=== PATIENT | male | born 1935 | race Caucasian/White ===

== ENCOUNTER 2018-01-19 00:23 | Inpatient (IN) | payer OTHER ==
--- OUTSIDE RECORDS SUMMARY | 2018-01-19 00:25 | XMS REPORT | Clinical Summary ---
:1935 Author Organization [facility] Address [address] [place] [address] Phone Care Team Providers Name Role Phone Unavailable Primary Care Provider Unavailable Allergies No Known Allergies Current Medications Prescription Sig. Disp. Refills Start Date End Date Status acetaminophen 500 mg Take by mouth. Active coapsule brimonidine Active (ALPHAGAN P) 0.1 % Drop ascorbic acid, Take 1,000 mg by Active vitamin C, (VITAMIN mouth daily. C) 1000 MG tablet atorvastatin Take 40 mg by mouth Active (LIPITOR) 40 MG daily. tablet B-complex with Take 1 tablet by Active vitamin C tablet mouth daily. lactobacillus Take 1 capsule by Active rhamnosus, GG, mouth daily. (CULTURELLE) 10 billion cell capsule carvedilol (COREG) Take 12.5 mg by Active 12.5 MG tablet mouth 2 (two) times daily with breakfast and dinner. cholecalciferol, Take 1,000 Units by Active vitamin D3, 1,000 mouth daily. unit capsule coconut oil, bulk, by Miscellaneous Active (COCONUT) Oil route. cranberry 500 mg Cap Take by mouth. Active cyanocobalamin Take 1,000 mcg by Active (VITAMIN B-12) 1000 mouth daily. MCG tablet difluprednate Apply to eye(s). Active (DUREZOL) 0.05 % Drop diphenhydrAMINE Take 25 mg by mouth Active (BENADRYL) 25 mg every 6 (six) hours capsule as needed for Itching. ferrous sulfate 325 Take 325 mg by Active (65 FE) MG tablet mouth daily with breakfast. furosemide (LASIX) Take 40 mg by mouth Active 40 MG tablet 2 (two) times daily. gabapentin Take 300 mg by Active (NEURONTIN) 300 MG mouth 3 (three) capsule times daily. GINSENG ORAL Take by mouth. Active SITagliptin Take 100 mg by Active (JANUVIA) 100 MG mouth daily. tablet insulin glargine Inject Active (LANTUS) 100 unit/mL subcutaneously injection nightly Use as directed . insulin aspart Inject Active protamine-insulin subcutaneously 2 aspart (NOVOLOG MIX (two) times daily 70/30) 100 unit/mL with breakfast and (70-30) Soln dinner. injection omeprazole Take 20 mg by mouth Active (PRILOSEC) 20 MG daily. capsule polycarbophil Take 625 mg by Active (FIBERCON) 625 mg mouth daily. tablet senna (SENOKOT) 8.6 Take 1 tablet by Active mg tablet mouth daily. telmisartan Take 80 mg by mouth Active (MICARDIS) 80 MG daily. tablet polymyxin B 1 drop. Active sulf-trimethoprim (POLYTRIM) 10,000 unit- 1 mg/mL Drop thiamine 100 MG Take 100 mg by Active tablet mouth daily. amiodarone Take 200 mg by Active (PACERONE) 200 MG mouth daily. tablet amiodarone Take 200 mg by Discontinued (PACERONE) 200 MG mouth daily. 8 tablet telmisartan-hydrochl Take 1 tablet by Discontinued orothiazide mouth daily. 8 (MICARDIS HCT) 80-12.5 mg per tablet Active Problems Not on file Encounters Date Type Specialty Care Team Description 10/16/2017 Hospital Encounter Man Marrero MD 10/16/2017 Anesthesia Event Chitra Meraz MD 10/16/2017 Procedure Pass 10/16/2017 Surgery Man Marrero IMPLANT EXCHANGE,SIERRA Dumont MD 10/15/2017 Hospital Encounter Pre-Admission Testing after 01/18/2017 Social History Tobacco Use Types Packs/Day Years Used Date Former Smoker Quit: 09/23/1988 Smokeless Tobacco: Never Used Alcohol Use Drinks/Week oz/Week Comments No Sex Assigned at Date Recorded Not on file Last Filed Vital Signs Vital Sign Reading Time Taken Blood Pressure 139/66 10/16/2017 4:09 PM QUALITY IMPROVEMENT COORDINATOR Pulse 62 10/16/2017 4:09 PM QUALITY IMPROVEMENT COORDINATOR Temperature 36.4 C (97.6 F) 10/16/2017 3:46 PM QUALITY IMPROVEMENT COORDINATOR Respiratory Rate 13 10/16/2017 4:09 PM QUALITY IMPROVEMENT COORDINATOR Oxygen Saturation 97% 10/16/2017 4:09 PM QUALITY IMPROVEMENT COORDINATOR Inhaled Oxygen Concentration - - Weight 123.4 kg (272 lb) 10/15/2017 3:47 PM QUALITY IMPROVEMENT COORDINATOR Height 170.2 cm (5' 7") 10/15/2017 3:47 PM QUALITY IMPROVEMENT COORDINATOR Body Mass Index 42.6 10/15/2017 3:47 PM QUALITY IMPROVEMENT COORDINATOR Plan of Treatment Not on file Implants Implanted Type Area Claims Processor Device Expiration Model / Identifier Date Serial / Lot Iol Tecnis [id number] 21.5 D [id number] 21.5 - [id number] Ophthalmology Left: [employer] 07/10/2022 [id number] 21.5 / Implanted: Qty: 1 on 10/16/2017 by Man Marrero MD Eye [id number] / N/A Procedures Procedure Name Priority Date/Time Associated Diagnosis Comments VITRECTOMY,ANTERIOR 10/16/2017 1:50 PM QUALITY IMPROVEMENT COORDINATOR 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
--- OUTSIDE RECORDS SUMMARY | 2018-01-19 00:25 | XMS REPORT ---
:1935 Author Organization [facility] Address [address] [place] [address] Dr. Varela [address] [place] [id number] Care Team Providers Name Role Phone Tim IYER Unavailable Unavailable Problems This patient has no known problems. Allergies, Adverse Reactions, Alerts This patient has no known allergies or adverse reactions. Medications This patient has no known medications. Results Test Description Test Time Test Comments Text Results Atomic Results Result Comments POCT-GLUCOSE METER 2017-10-16 13:15:00 Test Item Value Reference Range Comments POC-GLUCOSE METER (ISHAAN) (test 157 mg/dL 70-110 TESTED AT [facility] [address] [id number]) [facility] [address]
[2018-01-19] MEDS ORDERED: MEPERIDINE HCL 25 MG/0.5 ML ONE ×3 (02:12→14:00)
[2018-01-19 02:37] LABS: Absolute Lymphocytes (CBC) 1.2 K/uL (0.7-4.9); Absolute Monocytes 0.7 K/uL (0.1-1.3); Absolute Neutrophil 8.5 K/uL (1.8-8.0); Basophils % 0.8 % (0-1.3); Eosinophils % 3.2 % (0-4.4); Hematocrit 35.9 % (39.6-49.0); Lymphocytes % 11.1 % (15.3-44.8); MCV 90.1 fL (80-100); MPV 7.9 fL (7.6-11.3); Monocytes % 6.2 % (3.3-12.3); RBC Red Blood Cell Count 3.99 M/uL (4.33-5.43)
--- NOTE | 2018-01-19 03:05 | ER ---
Nurse's Notes [facility] Name: Jimmy Soto Age: 82 yrs Sex: Male : 1935 Arrival Date: 01/19/2018 Time: 00:24 Bed 18 Private MD: Diagnosis: Displaced fracture of base of neck of right femur Presentation: 01/19 00:35 Presenting complaint: EMS states: Pt. comes from home by EMS, pt. had a fall landing on rk2 his right side. c/o right hip pain. Denied hitting head or LOC per EMS. Transition of care: patient was not received from another setting of care. Onset of symptoms was January 19, 2018. Initial Sepsis Screen: Does the patient meet any 2 criteria? No. Patient's initial sepsis screen is negative. Initial Sepsis Screen: Does the patient have a suspected source of infection? No. Patient's initial sepsis screen is negative. Care prior to arrival: IV initiated. 18 GA, in the left antecubital area. 00:35 Method Of Arrival: EMS: [facility] rk2 00:35 Acuity: ART 3 rk2 Triage Assessment: 00:40 General: Appears in no apparent distress. obese, well developed, well nourished, rk2 Behavior is calm, cooperative. Pain: Complains of pain in Right hip. Historical: - Allergies: 00:39 No Known Allergies; rk2 - Home Meds: 00:39 Lasix Oral [Active]; rk2 - Immunization history:: Pneumococcal vaccine status is unknown. - Social history:: Smoking status: unknown. - Family history:: not pertinent. - Hospitalizations: : No recent hospitalization is reported. Screenin:40 Abuse screen: Denies threats or abuse. rk2 00:40 Nutritional screening: No deficits noted. Tuberculosis screening: No symptoms or risk rk2 factors identified. Fall Risk Fall in past 12 months (25 points). Secondary diagnosis (15 points) IV access (20 points). Assessment: 00:40 General: Appears in no apparent distress. obese, well developed, well nourished, rk2 Behavior is calm, cooperative. 00:40 Neuro: Level of Consciousness is alert, obeys commands, Oriented to person, place, rk2 time, situation. Respiratory: Airway is patent Respiratory effort is even, unlabored, Respiratory pattern is regular, symmetrical. Derm: Skin is pink, warm \T\ dry. Musculoskeletal: Capillary refill < 3 seconds, Good distal pulse and cap refill to right lower extremity. Possible shortening; however, no obvious rotation. 01:15 Reassessment: Pt. returned from xray. rk2 02:29 Reassessment: Pt. resting in room with family \T\ bedside... pt. labs drawn and pain rk2 medication given. Pt. O2 sat dropped after medication... placed pt. onto O2 \T\ 4 LPM. Pt. appears to be in no obvious distress. No other needs voiced \T\ this time. 03:50 Reassessment: Patient and/or family updated on plan of care and expected duration. Pain ea level reassessed. Patient is alert, oriented x 3, equal unlabored respirations, skin warm/dry/pink. 04:11 Reassessment: Report given to receiving nurse on fourth floor. ea 04:34 Reassessment: Patient and/or family updated on plan of care and expected duration. Pain ea level reassessed. Patient is alert, oriented x 3, equal unlabored respirations, skin warm/dry/pink. Patient denies pain at this time. Vital Signs: 00:39 BP 157 / 87; Pulse 63; Resp 17; Temp 97.7; Pulse Ox 96% on R/A; Weight 120.66 kg; Pain rk2 0/10; 02:30 BP 164 / 68; Pulse 70; Resp 16; Pulse Ox 95% ; rk2 03:30 BP 161 / 61; Pulse 67; Resp 18; Pulse Ox 100% on R/A; ea 04:00 BP 137 / 65; Pulse 66; Resp 18; Pulse Ox 99% on R/A; ea 04:15 Temp 98.0(O); ea 00:39 No pain while not standing/moving rk2 ED Course: 00:24 Patient arrived in ED. ds1 00:27 Jeremy Leos MD is Attending Physician. rn 00:34 Judy Cespedes RN is Primary Nurse. rk2 00:37 Triage completed. rk2 00:40 Patient has correct armband on for positive identification. Bed in low position. Call rk2 light in reach. Side rails up X2. Adult w/ patient. 00:41 XRAY Femur RIGHT Sent. rk2 00:41 XRAY Hip RIGHT 2 view Sent. rk2 00:41 XRAY Pelvis Sent. rk2 00:41 Arm band placed on. rk2 01:34 CT Pelvis wo Cont Sent. rk2 02:02 CT Pelvis wo Cont In Process Unspecified. EDMS 02:13 XRAY Pelvis In Process Unspecified. EDMS 02:13 XRAY Hip RIGHT 2 view In Process Unspecified. EDMS 02:13 XRAY Femur RIGHT In Process Unspecified. EDMS 02:28 CBC with Diff Sent. rk2 03:03 Pablo Barriga MD is Hospitalizing Provider. rn 04:32 No provider procedures requiring assistance completed. Patient admitted, IV remains in ea place. Administered Medications: 02:27 Drug: Demerol 25 mg Route: IVP; Site: left antecubital; rk2 03:15 Follow up: Response: No adverse reaction; Pain is decreased ea Outcome: 03:04 Decision to Hospitalize by Provider. rn 04:00 Admitted to Med/surg accompanied by tech, via stretcher, room 411, Report called to ea Receiving nurse on fourth floor. 04:00 Instructed on the need for admit. 04:32 Condition: stable ea 04:35 Patient left the ED. ea Signatures: Dispatcher [employer] [facility] CastorenaKaya ds1 Jeremy Leos MD MD rn Antunez, Elena, RN RN ea Kidder, Rhonda, RN RN rk2 Corrections: (The following items were deleted from the chart) 00:41 00:39 BP 157 / 87; Pulse 63bpm; Resp 17bpm; Pulse Ox 96% RA; Temp 97.7F; rk2 rk2 02:33 02:29 Reassessment: Pt. resting in room with family \T\ bedside... pt. labs drawn and rk2 pain medication given. Pt. appears to be in no obvious distress. No other needs voiced \T\ this time. rk2
--- NOTE | 2018-01-19 03:05 | EDPHYS ---
Physician Documentation [facility] Name: Jimmy Soto Age: 82 yrs Sex: Male : 1935 Arrival Date: 01/19/2018 Time: 00:24 Bed 18 Private MD: ED Physician Jeremy Leos HPI: 01/19 00:43 This 82 yrs old Male presents to ER via EMS with complaints of Hip Pain. rn 00:43 The patient or guardian reports decreased range of motion, an injury, pain. The rn complaints affect the right hip. Onset: The symptoms/episode began/occurred just prior to arrival. Associated signs and symptoms: Loss of consciousness: the patient experienced no loss of consciousness. Severity of symptoms: At their worst the symptoms were moderate, in the emergency department the symptoms are unchanged. The patient has not experienced similar symptoms in the past. Reports fall from sitting, landed on right hip, isolated injury, couldn't get up or in private vehicle to come so called 911, not on blood thinners, no other injuries. . Historical: - Allergies: 00:39 No Known Allergies; rk2 - Home Meds: 00:39 Lasix Oral [Active]; rk2 - Immunization history:: Pneumococcal vaccine status is unknown. - Social history:: Smoking status: unknown. - Family history:: not pertinent. - Hospitalizations: : No recent hospitalization is reported. ROS: 00:43 Constitutional: Negative for fever, chills, and weight loss, Eyes: Negative for injury, rn pain, redness, and discharge, Neck: Negative for injury, pain, and swelling, Cardiovascular: Negative for chest pain, palpitations, and edema, Respiratory: Negative for shortness of breath, cough, wheezing, and pleuritic chest pain, Abdomen/GI: Negative for abdominal pain, nausea, vomiting, diarrhea, and constipation, Back: Negative for injury and pain, MS/Extremity: + right hip pain and injury Skin: Negative for injury, rash, and discoloration, Neuro: Negative for headache, weakness, numbness, tingling, and seizure. Exam: 00:43 Constitutional: This is a well developed, well nourished patient who is awake, alert, rn and in no acute distress. Head/Face: Normocephalic, atraumatic. Eyes: Pupils equal round and reactive to light, extra-ocular motions intact. Lids and lashes normal. Conjunctiva and sclera are non-icteric and not injected. Cornea within normal limits. Periorbital areas with no swelling, redness, or edema. Neck: Trachea midline, no thyromegaly or masses palpated, and no cervical lymphadenopathy. Supple, full range of motion without nuchal rigidity, or vertebral point tenderness. No Meningismus. Cardiovascular: Regular rate and rhythm with a normal S1 and S2. No gallops, murmurs, or rubs. Normal PMI, no JVD. No pulse deficits. Respiratory: Lungs have equal breath sounds bilaterally, clear to auscultation and percussion. No rales, rhonchi or wheezes noted. No increased work of breathing, no retractions or nasal flaring. Abdomen/GI: Soft, non-tender, with normal bowel sounds. No distension or tympany. No guarding or rebound. No evidence of tenderness throughout. Back: No spinal tenderness. No costovertebral tenderness. Full range of motion. MS/ Extremity: Pulses equal, no cyanosis. + right hip tenderness and painful ROM Neuro: Awake and alert, GCS 15, oriented to person, place, time, and situation. Cranial nerves II-XII grossly intact. Motor strength 5/5 in all extremities. Sensory grossly intact. Cerebellar exam normal. Vital Signs: 00:39 BP 157 / 87; Pulse 63; Resp 17; Temp 97.7; Pulse Ox 96% on R/A; Weight 120.66 kg; Pain rk2 0/10; 02:30 BP 164 / 68; Pulse 70; Resp 16; Pulse Ox 95% ; rk2 03:30 BP 161 / 61; Pulse 67; Resp 18; Pulse Ox 100% on R/A; ea 04:00 BP 137 / 65; Pulse 66; Resp 18; Pulse Ox 99% on R/A; ea 04:15 Temp 98.0(O); ea 00:39 No pain while not standing/moving rk2 MDM: 00:27 Patient medically screened. rn 03:03 Differential diagnosis: hip fracture, intertrochanteric fracture, femoral neck rn fracture, femoral shaft fracture. Data reviewed: vital signs, nurses notes, lab test result(s), radiologic studies, CT scan, plain films, and as a result, I will admit patient. Counseling: I had a detailed discussion with the patient and/or guardian regarding: the historical points, exam findings, and any diagnostic results supporting the discharge/admit diagnosis, lab results, radiology results, the need for further work-up and treatment in the hospital. Response to treatment: the patient's symptoms have mildly improved after treatment. Response to treatment: and as a result, I will admit patient. Admission orders: after a detailed discussion of the patient's condition and case, the admit orders are written by me. 01/19 02:07 Order name: CBC with Diff rn 01/19 02:07 Order name: Basic Metabolic Panel rn 01/19 02:07 Order name: Protime (+inr) rn 01/19 02:07 Order name: Ptt, Activated rn 01/19 02:07 Order name: CBC with Automated Diff EDMS 01/19 03:11 Order name: CBC with Automated Diff EDMS 01/19 03:11 Order name: CBC with Automated Diff EDMS 01/19 03:11 Order name: Comprehensive Metabolic Panel EDMS 01/19 03:11 Order name: Comprehensive Metabolic Panel EDMS 01/19 03:11 Order name: Magnesium EDMS 01/19 03:11 Order name: Magnesium EDMS 01/19 03:11 Order name: Phosphorus EDMS 01/19 03:11 Order name: Phosphorus EDMS 01/19 03:11 Order name: Protime (+INR) EDMS 01/19 00:33 Order name: XRAY Pelvis rn 01/19 00:33 Order name: XRAY Hip RIGHT 2 view rn 01/19 00:33 Order name: XRAY Femur RIGHT rn 01/19 01:14 Order name: CT Pelvis wo Cont rn 01/19 02:07 Order name: IV Start; Complete Time: 02:28 rn 01/19 03:11 Order name: CONS Physician Consult EDAZ 01/19 03:11 Order name: NPO EDMS 01/19 03:11 Order name: Protime (+INR) EDMS 01/19 03:11 Order name: PTT, Activated Partial Thromb EDMS 01/19 03:11 Order name: PTT, Activated Partial Thromb EDMS Administered Medications: 02:27 Drug: Demerol 25 mg Route: IVP; Site: left antecubital; rk2 03:15 Follow up: Response: No adverse reaction; Pain is decreased ea Disposition: 01/19/18 03:04 Hospitalization ordered by Pablo Barriga for Inpatient Admission. Preliminary diagnosis is Displaced fracture of base of neck of right femur. - Bed requested for Telemetry/MedSurg (Inpatient). - Status is Inpatient Admission. ea - Condition is Stable. - Problem is new. - Symptoms have improved. UTI on Admission? No Signatures: Dispatcher [employer] EDMS Beth Farrell RN RN mw Nieto, Roman, MD MD rn Antunez, Elena RN Judy Stevens ea, RN RN rk2
[2018-01-19] MEDS ORDERED: ONDANSETRON 4 MG/2 ML VIAL IV PRN (03:08)
[2018-01-19] MEDS ORDERED: METOCLOPRAMIDE 10 MG/2mL INJ IV PRN (03:08)
[2018-01-19] MEDS ORDERED: ACETAMINOPHEN 500 MG TAB PO PRN (03:08)
[2018-01-19] MEDS ORDERED: FENTANYL CITR 100 MCG/2 ML IV PRN (03:16)
[2018-01-19 03:37] LABS: Protime INR 1.01
[2018-01-19 03:39] LABS: Potassium 4.8 mEq/L (3.6-5.0)
[2018-01-19] MEDS: NA CHLORIDE 0.9% 1,000 ML IV SCH ×2 (04:46→16:46)
--- NOTE | 2018-01-19 06:10 | P.HP ---
Certification for Inpatient Patient admitted to: Inpatient With expected LOS: >2 Midnights Patient will require the following post-hospital care: Rehabilitation Practitioner: I am a practitioner with admitting privileges, knowledge of patient current condition, hospital course, and medical plan of care. Services: Services provided to patient in accordance with Admission requirements found in Title 42 Section 412.3 of the Code of Federal Regulations Patient History Date of Service: 01/19/18 Reason for admission: status post fall with secondary right femoral neck fracture History of Present Illness: Patient is an 82-year-old gentleman who came into the hospital after falling when getting out of his wheelchair. Patient fell on his right side and was unable to stand. He was able to contact EMS using his cell phone. EMS arrived and found patient on the floor. Patient was unable to stand. His right leg was deviated outwardly. Patient was brought into the emergency room where x- ray revealed a right femoral neck fracture. Patient was admitted to the hospital for surgical intervention. Dr. Castañeda from orthopedic is consulted. Patient denies any significant cardiac disease. Patient has a history of diabetes & atrial fibrillation. Patient does not have coronary artery disease. Patient's blood sugars are stable. Patient's heart rate is stable. Patient is not on any anticoagulation. After discussing patient's medical history I believe patient is stable for surgical intervention. Patient's benefit from having this procedure as soon as possible outweigh the risk of postoperative complication per surgery. patient should be able to tolerate hip surgery. Will monitor patient closely in the postoperative period. Allergies No Known Allergies Allergy (Verified 01/19/18 04:44) Home Medications: Propafenone [Rythmol SR] 225 mg PO TID 11/10/13 Albuterol Sulfate [Albuterol Sulfate 0.083% Neb Soln] 2.5 mg IH Q6HP PRN Amiodarone HCl [Cordarone*] 200 mg PO DAILY 07/16/15 Clonidine HCl [Catapres] 0.3 mg PO DAILY PRN 07/16/15 Diphenhydramine [Benadryl*] 50 mg PO BID 07/16/15 Docusate [Colace Cap*] 100 mg PO BID 07/16/15 Doxazosin Mesylate [Cardura] 2 mg PO BEDTIME 07/16/15 Fludrocortisone [Florinef *] 0.1 mg PO DAILY 07/16/15 Gabapentin [Neurontin*] 200 mg PO TID 07/16/15 Hydrocodone/Acetaminophen [[place] 5-325 Tablet] 1 each PO Q4HP PRN 07/16/15 Loratadine [Claritin*] 10 mg PO DAILY 07/16/15 Losartan Potassium [Cozaar] 300 mg PO DAILY 07/16/15 Metolazone [Zaroxolyn*] 5 mg PO BID 07/16/15 Metoprolol Tartrate [Lopressor*] 50 mg PO BID 07/16/15 Minoxidil 10 mg PO BID 07/16/15 Multivitamin [Multivitamins] 1 tab PO DAILY 07/16/15 Omeprazole [Prilosec] 20 mg PO DAILY 07/16/15 Pantoprazole Sodium [Protonix] 40 mg PO DAILY 07/16/15 Protein Supplement [Procel] 1 each PO BID 07/16/15 Simvastatin [Zocor*] 20 mg PO BEDTIME 07/16/15 Tamsulosin [Flomax*] 0.4 mg PO BEDTIME 07/16/15 Temazepam [Restoril*] 45 mg PO BEDTIME 07/16/15 Valsartan [Diovan] 160 mg PO DAILY 07/16/15 Whey Prot/Arg/Glu/C/Zn/County Program Technician/Tos [Argiment At Powder Packet] 1 pkt PO DAILY Acetaminophen 650 mg RC Q6H 07/18/15 Bisacodyl [Dulcolax*] 10 mg RC DAILY PRN 07/18/15 Doxycycline [Vibramycin IV*] 100 mg IV Q12H 07/18/15 Enema, Fleet Adult [Fleet Enema Adult*] 1 malka RC DAILY PRN 07/18/15 Gabapentin [Neurontin*] 300 mg PO BEDTIME 07/18/15 Guaifenesin [Cough Syrup] 5 ml PO Q6H PRN 07/18/15 Insulin Aspart [Novolog] 4 unit SQ AC 07/18/15 L. Acidophilus/L.bulgaricus [Floranex Tablet] 1 each PO TID 07/18/15 Insulin Glargine Human [Lantus*] 25 unit SQ BEDTIME 07/19/15 Amiodarone HCl [Cordarone*] 200 mg PO DAILY #30 tab 07/22/15 Amlodipine [Norvasc*] 2.5 mg PO DAILY #30 tab 07/22/15 Aspirin Chewable [Aspirin Chewable*] 81 mg PO DAILY #30 tab.chew 07/22/15 Fludrocortisone [Florinef *] 0.1 mg PO DAILY #30 tab 07/22/15 Furosemide [Lasix*] 40 mg PO DAILY #30 tab 07/22/15 Losartan Potassium [Cozaar*] 100 mg PO DAILY #30 tablet 07/22/15 Spironolactone [Aldactone*] 25 mg PO DAILY #30 tab 07/22/15 Insulin Glargine Human [Lantus*] 20 units SQ BEDTIME #10 ml 07/23/15 Medihoney [Medihoney Woundcare Gel*] 1 appl TOP DAILY #1 tube 07/23/15 - Past Medical/Surgical History Has patient received pneumonia vaccine in the past: Yes Diabetic: Yes -: HTN -: high cholesterol -: copd -: asbestosis -: Mr SA foot w/ cellulitis -: PE -: Obstructive sleep apnea -: Atrial flutter -: [place] wrist sx (fell off deer stand and broke both wrist) -: cataract Sx - Family History Mother Notes: denies having family history of illness Father Notes: denies having family history of illness Sister Notes: denies having family history of illness Brother Notes: denies having family history of illness - Social History Smoking Status: Former smoker Alcohol use: No CD- Drugs: No Caffeine use: Yes Place of Residence: Home Review of Systems 10-point ROS is otherwise unremarkable Physical Examination - Vital Signs Temperature: 98.0 F Blood Pressure: 168/77 Pulse: 70 Respirations: 18 Pulse Ox (%): 96 - Physical Exam General: Alert, In no apparent distress, Oriented x3 HEENT: Atraumatic, PERRLA, Mucous membr. moist/pink, EOMI, Sclerae nonicteric Neck: Supple, 2+ carotid pulse no bruit, No LAD, Without JVD or thyroid abnormality Respiratory: Clear to auscultation bilaterally, Normal air movement Cardiovascular: Regular rate/rhythm, Normal S1 S2, No murmurs Gastrointestinal: Normal bowel sounds, Soft and benign, Non-distended, No tenderness Musculoskeletal: Tenderness Integumentary: No rashes Neurological: Normal speech, Normal tone, Sensation intact, Cranial nerves 3-12 intact, Normal affect, Abnormal gait, Abnormal strength Lymphatics: No axilla or inguinal lymphadenopathy - Studies Laboratory Data (last 24 hrs) 01/19/18 02:20: PT 11.9, INR 1.01, APTT 26.4 01/19/18 02:20: Sodium 134 L, Potassium 4.8, BUN 35 H, Creatinine 1.88 H, Glucose 236 H 01/19/18 02:20: WBC 10.9, Hgb 11.5 L, Hct 35.9 L, Plt Count 179 Assessment & Plan - Problems (Diagnosis) (1) Status post fall Current Visit: Yes Status: Acute (2) Nondisplaced fracture of base of neck of right femur, sequela Current Visit: Yes Status: Acute (3) DM type 2 (diabetes mellitus, type 2) Current Visit: Yes Status: Acute (4) Atrial fibrillation with rapid ventricular response Current Visit: Yes Status: Acute (5) Renal failure Onset Date: 07/18/15 Current Visit: No Status: Acute - Plan plan: 1. Gentle hydration 2. NPO for surgical intervention 3. Pain control 4. medication for rate control /hold anti-platelet therapy and anticoagulation 5. strict blood pressure and blood sugar control 6. Monitor volume status 7. GI and DVT prophylaxis Patient's only cardiac history is atrial fibrillation. Patient's benefits for surgery outweighed the risk. Patient should be stable for intervention by Orthopedic. Discharge Plan: Other Plan to discharge in: Greater than 2 days - Advance Directives Does patient have a Living Will: Yes Does patient have a Durable POA for Healthcare: Yes - Code Status/Comfort Care Code Status Assessed: Yes Code Status: Full Code Critical Care: No Time Spent Managing PTS Care (In Minutes): 50
[2018-01-19] MEDS: AMIODARONE HCL 200 MG TAB PO SCH ×2 (06:43→09:00)
--- NOTE | 2018-01-19 07:49 | RAD REPORT ---
EXAM DESCRIPTION: RAD - Femur Right - 01/19/2018 2:12 am CLINICAL HISTORY: Fall, pelvic, hip and leg pain. COMPARISON: None. FINDINGS: The femoral head, neck and intertrochanteric region are imaged on separate examination. Remaining portions of the femur show no fracture or acute bone process. Vascular calcifications are p resent. No significant soft tissue finding in this region of the leg. No air or foreign body in the s oft tissues. IMPRESSION: The femoral head, neck and intertrochanteric region are separately detailed and separate ly imaged. Mid and distal femur shows no acute finding.
--- NOTE | 2018-01-19 07:51 | RAD REPORT ---
EXAM DESCRIPTION: RAD - Hip Right 2 View - 01/19/2018 2:12 am CLINICAL HISTORY: Fall, pelvic pain COMPARISON: None. FINDINGS: AP and cross-table lateral views were obtained. Right femoral neck fracture is present. Th is is near the intertrochanteric region. No definitive involvement of the intertrochanteric portion. If intertrochanteric involvement alters surgical treatment options, thin section CT imaging could be performed. No pathologic bone process. No AVN or focal femoral head abnormality. There is no dislocat ion of the femoral head. Partially imaged right pelvis shows no acute finding. IMPRESSION: Right femoral neck fracture near the intertrochanteric segment of the femur. If there is need to exclude the intertrochanteric portion from acute fracture, followup CT imaging co uld be performed.
--- NOTE | 2018-01-19 07:52 | RAD REPORT ---
EXAM DESCRIPTION: RAD - Pelvis - 01/19/2018 2:12 am CLINICAL HISTORY: Fall, pelvic and hip pain COMPARISON: None. TECHNIQUE: AP imaging of the pelvis was obtained. FINDINGS: Mild for age lower lumbar spine degenerative change present only partially imaged. SI join t and pubic symphysis degenerative change are minimal. No fracture of the bony pelvis identifiable. No pathologic component. Proximal left femur appears int act. Right femur shows transcervical neck fracture. Intertrochanteric involvement is not suspected bu t assessment is limited. Followup CT imaging could be obtained if there is need to better assess the intertrochanteric portion of the right femur. IMPRESSION: Right femoral neck fracture as detailed.
--- NOTE | 2018-01-19 07:59 | RAD REPORT ---
EXAM DESCRIPTION: CT - Pelvis Wo Cont - 01/19/2018 6:29 am CLINICAL HISTORY: Fall, pelvic and hip pain, femur fracture not fully assessed A preliminary written report was provided at the time of the study, and the report was reviewed prio r to final dictation. COMPARISON: Pelvis and hip films same date TECHNIQUE: Axial 2 millimeter thick images of the pelvis were obtained with sagittal and coronal ref ormatted images generated and reviewed. FINDINGS: Transverse fracture is present through the right femoral neck. The superior margin of the fracture is at the femoral neck intertrochanteric junction. The medial or inferior margin of the main fracture plane is in the midportion of the femoral neck. There is minimal and action. There are nicolasa ral small fracture fragments along the course of the main fracture plane. No pathologic component is present. No measurable rotation of the femoral shaft. No dislocation of the femoral head. No AVN iden tified. Hip joint degenerative changes are minimal. Proximal left femur is intact. No concurrent pelvic fracture seen. SI joint degenerative changes are present. Lower lumbar degenerative disc and endplate changes noted. Distal abdominal aorta is dilated to 3.5 cm. Liver is prominent extending well below the lower pole o f the kidney. The liver is not fully assessed. Urinary bladder is distended. No bladder wall thickeni ng, mass or calcification. No acute soft tissue finding of the pelvis. Bilateral fat filled inguinal hernias are present. No significant periarticular mass or hematoma at the right hip joint. IMPRESSION: Right femoral neck fracture with several small fracture fragments along the main femoral neck fracture plane. The superolateral margin of the fracture is at the femoral neck greater trochanter junction. No clear extension into the intertrochanteric portion of the femur. Fracture is minimally impacted superiorly. There is no pathologic component.
[2018-01-19] MEDS: FLUDROCORTISONE 0.1 MG TAB PO SCH (09:00)
[2018-01-19] MEDS ORDERED: CLONIDINE HCL 0.3 MG TAB PO SCH (09:00)
[2018-01-19] MEDS ORDERED: FENTANYL CITR 100 MCG/2 ML ONE (11:49)
[2018-01-19] MEDS ORDERED: ONDANSETRON 4 MG/2 ML VIAL ONE (11:50)
[2018-01-19] MEDS ORDERED: MIDAZOLAM HCL 2 MG/2 ML INJ ONE (11:50)
[2018-01-19] MEDS ORDERED: ETOMIDATE 20 MG/10 ML VIAL IV ONE (11:51)
[2018-01-19] MEDS ORDERED: CEFAZOLIN/SWI 1gm 2 GM/20 ML SYR ONE (12:07)
[2018-01-19] MEDS ORDERED: NA CHLORIDE 0.9% 1,000 ML ONE ×2 (12:08→13:58)
[2018-01-19] MEDS ORDERED: EPHEDRINE SULF 50 MG/5 ML SYR ONE (12:32)
[2018-01-19] MEDS ORDERED: GLYCOPYRROLATE 0.2 MG/ML SYR ONE (12:47)
[2018-01-19] MEDS ORDERED: PROMETHAZINE 25 MG/ML VIAL ONE (13:38)
--- NOTE | 2018-01-19 13:42 | PN ---
Date of Progress Note: 01/19/2018 Subjective: The patient seen and examined. Chart reviewed and case discussed with RN. The patient states his pain is tolerable, controlled with medications. Review of Systems: Negative except as above. Medications: Reviewed. Physical Examination: Vital Signs: Temperature 97.6, heart rate 69, blood pressure 187/76, respirations 20, O2 94% on 3 L via nasal cannula. General: Awake, alert, oriented x3. No acute distress. Obese, BMI 42. CV: S1, S2. Peripheral pulses present. Respiratory: Moving air well bilaterally. No wheezing. Gastrointestinal: Abdomen is soft, nontender, and nondistended. Positive bowel sounds. Extremities: No clubbing, cyanosis, or edema. Musculoskeletal: Right hip tender to palpation. Right lower extremity externally rotated, shortened . Neurologic: Nonfocal. Laboratory Data: Sodium is 134, potassium 4.8, chloride 103, CO2 25, BUN 35, creatinine 1.88 which i s a little bit above his baseline. WBC 10.9, H and H 11.5 and 35.9, platelets 179. CT pelvis shows right femoral neck fracture with several small fracture fragments along the main femoral neck fractur e plane. Assessment And Plan: An 82-year-old male with: 1.Right femoral fracture. Dr. Castañeda has been consulted for possible surgical intervention. The patient is cleared for surgery. 2.Status post mechanical fall. 3.Diabetes mellitus type 2, insulin requiring with hyperglycemia and chronic kidney dysfunction. 4.Essential hypertension, stable. 5.Hyperlipidemia, statin. 6.Chronic obstructive pulmonary disease. Continue breathing treatments. 7.Obstructive sleep apnea. Continue CPAP. 8.History of atrial flutter with rapid ventricular response, now with controlled ventricular rate. The patient does not take any blood thinners. Had a recent colonoscopy and was told to stop. 9.Acute on chronic kidney disease. The patient does have stage 3 chronic disease and creatinine bas emir is around 1.4 to 1.5. We will continue to monitor. 10.Gastrointestinal and deep venous thrombosis prophylaxis. PPI and Lovenox. Plan: Anticipate surgery. /SUSHANT Voice ID: [id number] Report ID: [id number]
--- NOTE | 2018-01-19 13:54 | RAD REPORT ---
EXAM DESCRIPTION: RAD - Hip In Or - 01/19/2018 1:35 pm FINDINGS: Right hip fluoroscopy performed. Multiple portable C-arm views were obtained during fluoroscopic assisted placement of fracture fixati on hardware. No suspicious or unexpected finding.
--- NOTE | 2018-01-19 15:00 | CON ---
Preoperative Diagnosis: Right basicervical femoral neck fracture. History Of Present Illness: Mr. Soto fell in his home. He sustained a right hip fracture. His r adiographic evaluation including a CT scan reveals that there is a basicervical component to it with slight extension in intertrochanteric region. We will try to treat this with intramedullary rodding with anti-rotation screw. Past Medical History: Significant for obesity with a BMI of 42, hyperlipidemia, atrial fibrillation. Despite history of atrial fibrillation he is on no anticoagulation. He also has type 2 diabetes. Hypertension. He reports no numbness or tingling. Physical Examination: He has been unable to move secondary to the right hip pain. X-rays were as described above. Plan: Plan will be to take him to the operating room after medical clearance. MARTÍN Voice ID: [id number] Report ID: [id number]
[2018-01-19] MEDS ORDERED: FENTANYL CITR 100 MCG/2 ML IV ONE (16:26)
[2018-01-19] MEDS ORDERED: CEFAZOLIN/NS 1gm 1 GM/50 ML BAG IVPB SCH (17:00)
[2018-01-19] MEDS: CEFAZOLIN/SWI 1gm 1 GM/10 ML SYR IV SCH (20:40)
[2018-01-19] MEDS: FENTANYL CITR 100 MCG/2 ML IV PRN (20:40)
[2018-01-19] MEDS: DOXAZOSIN 2 MG TAB PO SCH (20:40)
[2018-01-19] MEDS: cloNIDine HCl 0.1 MG TAB PO SCH (20:41)
--- NOTE | 2018-01-20 00:06 | OP ---
Surgeon: Carlos Castañeda MD Date of Service: 01/19/2018 Preoperative Diagnosis: Right basicervical femoral neck fracture. Postoperative Diagnosis: Right basicervical femoral neck fracture. Procedure Performed: Right hip intramedullary rodding with anti-rotation screw. Certified Public Accountant: CRISTINO Torres. Complications: None. Disposition: Recovery room stable. Procedure In Detail: The patient was taken to the operative suite and placed in supine position, induced anesthesia. The right hip was prepped and draped in usual sterile fashion. After suspension on the fracture table, upon reviewing on the fracture table, the fracture pattern extended into the greater trochanter basicervical region superiorly and down inferiorly to the midportion of the femoral neck. It appeared that there was some comminution of the medial femoral neck as well. It was elected to place an intramedullary screw. The other option would have been a neck replacement bipolar. This was felt to be better option for this gentleman. He is quite large, BMI of 42. Skin incision was created over the greater trochanter. The awl placed. Guidewire passed. Cephalomedullary screw was splashed in the subchondral bone of the femoral head. Anti-rotation screw was placed prior to drilling. A 105 mm lag screw was placed followed by an 85 mm anti-rotational screw. The nail was an 11 x 125 degree nail. The distal 38 mm distal intramedullary locking screw in the static position was placed. The patient tolerated the procedure well, was reversed from anesthesia, and should be in the recovery room shortly. BRIANNA/SUSHANT Voice ID: [id number] Report ID: [id number] ANN
[2018-01-20] MEDS: FENTANYL CITR 100 MCG/2 ML IV PRN ×3 (02:04→12:00)
[2018-01-20] MEDS: NA CHLORIDE 0.9% 1,000 ML IV SCH ×2 (02:04→22:14)
[2018-01-20] MEDS: CEFAZOLIN/SWI 1gm 1 GM/10 ML SYR IV SCH (03:48)
[2018-01-20] MEDS: ENOXAPARIN 30 MG/0.3 ML SQ SCH ×2 (05:03→17:42)
[2018-01-20 05:47] LABS: Absolute Monocytes 0.7 K/uL (0.1-1.3); Absolute Neutrophil 6.8 K/uL (1.8-8.0); Basophils % 1.3 % (0-1.3); Eosinophils % 5.3 % (0-4.4); Hematocrit 29.6 % (39.6-49.0); Lymphocytes % 10.7 % (15.3-44.8); MCV 89.4 fL (80-100); MPV 7.8 fL (7.6-11.3); Monocytes % 7.4 % (3.3-12.3); Protime INR 1.12; RBC Red Blood Cell Count 3.31 M/uL (4.33-5.43)
[2018-01-20 06:07] LABS: Albumin 3.2 g/dL (3.2-5.5); Bilirubin Total 0.6 mg/dL (0.3-1.2); Magnesium 1.9 mg/dL (1.8-2.5); Phosphorus 4.2 mg/dL (2.5-4.3); Potassium 5.1 mEq/L (3.6-5.0); Protein, Total 6.5 g/dL (6.0-8.3)
[2018-01-20] MEDS: AMIODARONE HCL 200 MG TAB PO SCH (08:47)
[2018-01-20] MEDS: CARVEDILOL 12.5 MG TAB PO SCH ×2 (08:47→21:00)
[2018-01-20] MEDS: cloNIDine HCl 0.1 MG TAB PO SCH ×2 (08:47→21:00)
[2018-01-20] MEDS: FUROSEMIDE 40 MG TABLET PO SCH (08:48)
[2018-01-20] MEDS: LACTOBACILLUS/ACIDOPHILUS TAB PO SCH ×2 (08:48→21:48)
[2018-01-20] MEDS: hydroCHLOROthiazide 12.5 MG CAP PO SCH (08:48)
[2018-01-20] MEDS: INSULIN DETEMIR 100 UNIT/1 ML INSULIN SQ SCH ×2 (08:49→21:00)
[2018-01-20] MEDS: HYDROCODONE/APAP 7.5/325 MG TAB PO PRN ×2 (08:50→16:05)
[2018-01-20] MEDS: SITAGLIPTIN PHOS 100 MG TAB PO SCH (08:50)
[2018-01-20] MEDS: HOME MED 1 EA UNK (Linaclotide [Linzess] 1 CAP) PO SCH (08:52)
[2018-01-20] MEDS: PANTOPRAZOLE 40MG TABLET PO SCH (08:58)
[2018-01-20] MEDS ORDERED: INSULIN DETEMIR 100 UNIT/1 ML INSULIN SQ SCH (09:00)
[2018-01-20] MEDS ORDERED: VALSARTAN 160 MG TAB PO SCH ×2 (09:00)
[2018-01-20] MEDS ORDERED: AMIODARONE HCL 200 MG TAB PO SCH (09:00)
[2018-01-20] MEDS ORDERED: hydroCHLOROthiazide 12.5 MG CAP PO SCH (09:00)
[2018-01-20] MEDS ORDERED: [UNRECOGNIZED DRUG - OTHER] PO SCH (09:00)
[2018-01-20] MEDS ORDERED: LACTOBACILLUS/ACIDOPHILUS TAB PO SCH (09:00)
[2018-01-20] MEDS ORDERED: D3 PO SCH (09:00)
[2018-01-20] MEDS ORDERED: SITAGLIPTIN PHOS 100 MG TAB PO SCH (09:00)
[2018-01-20] MEDS ORDERED: ENOXAPARIN 30 MG/0.3 ML SQ SCH (09:00)
[2018-01-20] MEDS ORDERED: EPA PO SCH (09:00)
[2018-01-20] MEDS ORDERED: COD LIVER OIL PO SCH (09:00)
[2018-01-20] MEDS ORDERED: DHA PO SCH (09:00)
[2018-01-20] MEDS: DOCOSAHEXANOIC AC/EPA 1000 MG PO SCH (09:38)
[2018-01-20] MEDS: FLUDROCORTISONE 0.1 MG TAB PO SCH (09:38)
[2018-01-20 10:14] LABS: A1c Component 0.44 mg/dL; Hemoglobin A1c 6.3 % (4-6.0)
--- NOTE | 2018-01-20 11:04 | PN ---
Date of Progress Note: 01/20/2018 Subjective: The patient seen and examined. Chart reviewed and case discussed with RN. The patient states his pain is better. The patient is currently in ICU postoperatively. Review of Systems: Negative except as above. Medications: Reviewed. Physical Examination: Vital Signs: Temperature 98.1, heart rate 68, blood pressure 135/53, respirations 26, O2 98% on 2 L via nasal cannula. General: Awake, alert, oriented x3, in some mild distress due to pain. Elderly male, morbidly obese , BMI 42. CV: S1, S2. No murmurs. Regular rate and rhythm. Peripheral pulses present bilaterally. Respiratory: Moving air well bilaterally. No wheezing. No stridor. No use of accessory muscles. GASTROINTESTINAL: Abdomen is soft, obese. Mildly distended. No tenderness. Bowel sounds positive. Extremities: No clubbing, cyanosis, or edema. Musculoskeletal: Right hip incision site clean, dry, and intact. Neuro: The patient has decreased sensation to his lower extremity, chronic. Nonfocal. Laboratory Data: Sodium 135, potassium 5.1, chloride 103, CO2 27, BUN 28, creatinine 1.34, glucose 1 77. A1c pending. Calcium 8.1. WBC 9, H and H 10.1 and 29.6, platelets 143, neutrophils 75%. Assessment And Plan: An 82-year-old male with: 1.Right femoral fracture status post open reduction and internal fixation. Appreciate Dr. Castañeda' s input. We will be moving the patient out of ICU this morning. We will start on deep venous thromb osis prophylaxis 24 hours post surgery. 2.Status post mechanical fall. We will continue with PT. The patient is wheelchair bound. 3.Diabetes mellitus type 2, insulin requiring with hyperglycemia and chronic kidney dysfunction. We will check hemoglobin A1c. Continue sliding scale insulin. 4.Essential hypertension, stable. 5.Hyperlipidemia, mixed. Continue statin. 6.Chronic obstructive pulmonary disease. We will continue breathing treatments. Currently on 2 L o f oxygen. 7.Obstructive sleep apnea. Continue CPAP. 8.History of atrial flutter with rapid ventricular response, now with controlled ventricular rate. The patient does not take any blood thinners at home due to recent colonoscopy. 9.Acute on chronic kidney disease, stage 3. Creatinine improved. We will continue to monitor. Davon id NSAIDs and nephrotoxins. 10.Gastrointestinal and deep venous thrombosis prophylaxis. PPI and Lovenox 24 hours post surgery. We will follow up with PT recommendations and possible rehab referral. /SUSHANT Voice ID: [id number] Report ID: [id number]
--- NOTE | 2018-01-20 11:59 | P.PN ---
Subjective Date of Service: 01/20/18 Chief Complaint: status post fall with secondary right femoral neck fracture Subjective: No new changes, No C/O voiced Review of Systems 10-point ROS is otherwise unremarkable Physical Examination - Vital Signs Temperature: 98.1 F Blood Pressure: 128/52 Pulse: 71 Respirations: 26 Pulse Ox (%): 98 - Physical Exam HEENT: Atraumatic, Normocephalic Neck: Supple Musculoskeletal: Other (dressings CDI)
[2018-01-20] MEDS ORDERED: GLUCAGON 1 MG/VIAL IM PRN (13:24)
[2018-01-20] MEDS ORDERED: D50W 25 GM/50 ML SYRINGE IV PRN (13:24)
[2018-01-20] MEDS: INSULIN -REGULAR HUMAN 50 UNIT/0.5 ML ML SQ SCH ×2 (16:13→21:00)
[2018-01-20] MEDS: DOXAZOSIN 2 MG TAB PO SCH (21:00)
[2018-01-20] MEDS: GABAPENTIN 300 MG CAP PO SCH (21:48)
[2018-01-20] MEDS: ATORVASTATIN 40 MG TAB PO SCH (21:48)
[2018-01-21 05:18] LABS: Absolute Lymphocytes (CBC) 1.4 K/uL (0.7-4.9); Absolute Monocytes 1.2 K/uL (0.1-1.3); Absolute Neutrophil 8.2 K/uL (1.8-8.0); Basophils % 0.6 % (0-1.3); Eosinophils % 2.1 % (0-4.4); Hematocrit 27.3 % (39.6-49.0); Lymphocytes % 12.6 % (15.3-44.8); MCV 89.8 fL (80-100); MPV 7.9 fL (7.6-11.3); Monocytes % 10.8 % (3.3-12.3); RBC Red Blood Cell Count 3.04 M/uL (4.33-5.43)
[2018-01-21 06:00] LABS: Potassium 5.6 mEq/L (3.6-5.0)
[2018-01-21] MEDS: ENOXAPARIN 30 MG/0.3 ML SQ SCH ×2 (06:08→17:21)
[2018-01-21 07:15] LABS: Absolute Lymphocytes (CBC) 1.2 K/uL (0.7-4.9); Absolute Monocytes 1.1 K/uL (0.1-1.3); Absolute Neutrophil 7.8 K/uL (1.8-8.0); Basophils % 0.4 % (0-1.3); Eosinophils % 1.8 % (0-4.4); Hematocrit 26.9 % (39.6-49.0); Lymphocytes % 11.4 % (15.3-44.8); MCH 29.7 pg (27.0-35.0); MCV 89.8 fL (80-100); MPV 7.8 fL (7.6-11.3); Monocytes % 10.8 % (3.3-12.3); RBC Red Blood Cell Count 2.99 M/uL (4.33-5.43)
[2018-01-21] MEDS: INSULIN -REGULAR HUMAN 50 UNIT/0.5 ML ML SQ SCH ×4 (07:30→21:00)
[2018-01-21] MEDS ORDERED: NA CHLORIDE 0.9% 1,000 ML IV ONE (07:40)
[2018-01-21 07:46] LABS: Potassium 5.6 mEq/L (3.6-5.0)
[2018-01-21] MEDS: AMIODARONE HCL 200 MG TAB PO SCH (08:16)
[2018-01-21] MEDS: LACTOBACILLUS/ACIDOPHILUS TAB PO SCH ×2 (08:16→21:31)
[2018-01-21] MEDS: FUROSEMIDE 40 MG TABLET PO SCH (08:17)
[2018-01-21] MEDS: hydroCHLOROthiazide 12.5 MG CAP PO SCH (08:17)
[2018-01-21] MEDS: SITAGLIPTIN PHOS 100 MG TAB PO SCH (08:17)
[2018-01-21] MEDS: DOCOSAHEXANOIC AC/EPA 1000 MG PO SCH (08:17)
[2018-01-21] MEDS: PANTOPRAZOLE 40MG TABLET PO SCH (08:17)
[2018-01-21] MEDS: INSULIN DETEMIR 100 UNIT/1 ML INSULIN SQ SCH ×2 (08:17→21:00)
[2018-01-21] MEDS: FLUDROCORTISONE 0.1 MG TAB PO SCH (08:19)
--- NOTE | 2018-01-21 08:29 | RAD REPORT ---
EXAM DESCRIPTION: RAD - Chest Single View - 01/21/2018 8:22 am CLINICAL HISTORY: Difficulty breathing COMPARISON: June 2015 studies TECHNIQUE: AP portable chest image was obtained 0805 hours . FINDINGS: No peripheral mass or consolidation. Interstitial markings are prominent as a baseline pot entially masking any early interstitial edema or infiltrate. Cardiac silhouette is enlarged but is le ss prominent than prior imaging. Vasculature is not outside of normal range for portable imaging and patient body habitus. Widened mediastinum is present but less pronounced than seen on prior imaging. No gross bony abnormality seen. No acute aortic findings suspected. IMPRESSION: No peripheral mass or consolidation. No significant degree of failure or volume overload suspected. Patient has chronic interstitial lung disease. This could potentially mask early stages of interstiti al edema or infiltrate.
[2018-01-21] MEDS: HOME MED 1 EA UNK (Linaclotide [Linzess] 1 CAP) PO SCH (09:00)
[2018-01-21] MEDS: NA CHLORIDE 0.9% 1,000 ML IV SCH (09:20)
[2018-01-21 10:56] LABS: Arterial Blood Carboxyhemoglob 2.4 % (0-1.5); Blood Gas Oxyhemoglobin 82.8 % (94-97); Blood O2 Saturation 85.5 % (92-98.5)
[2018-01-21] MEDS ORDERED: SODIUM BICARB 50 MEQ/50ML VIAL ONE (11:09)
[2018-01-21] MEDS ORDERED: SODIUM BICARB 50 MEQ/50ML VIAL IV ONE (11:15)
[2018-01-21] MEDS ORDERED: GLUCAGON 1 MG/VIAL IM PRN (11:25)
[2018-01-21] MEDS ORDERED: CALCIUM GLUC 10% INJ 4.65 MEQ in NA CHLORIDE 0.9% 100 ML IV ONE (11:25)
[2018-01-21] MEDS ORDERED: D50W 25 GM/50 ML SYRINGE IV PRN (11:25)
[2018-01-21] MEDS ORDERED: SOD POLYSTYREN SUL 15 GM/60 ML UCUP PO ONE (11:25)
[2018-01-21] MEDS ORDERED: INSULIN -REGULAR HUMAN 50 UNIT/0.5 ML ML IV ONE (11:26)
[2018-01-21] MEDS ORDERED: ALBUTEROL 2.5 MG/3 ML NEB SOL NEB ONE (13:31)
--- NOTE | 2018-01-21 14:35 | EKG ---
Test Date: 2018-01-21 Test Time: 11:03:24 Managed Care Analyst: MARLIN MEASUREMENT RESULTS: Intervals: Rate: 48 HI: QRSD: 108 QT: 492 QTc: 439 [place]: P: HI: QRS: 73 T: -8 INTERPRETIVE STATEMENTS: Junctional rhythm Inferior infarct, age undetermined Abnormal ECG Compared to ECG 01/20/2018 19:00:10 Junctional rhythm now present Myocardial infarct finding now present Sinus bradycardia no longer present ST (T wave) deviation no longer present Electronically Signed On 01-21-18 14:33:46 CDT by Shaquille Gagnon
--- NOTE | 2018-01-21 14:39 | EKG ---
Test Date: 2018-01-20 Test Time: 19:00:10 Manager Of Tires Sales: RT Garcia MEASUREMENT RESULTS: Intervals: Rate: 45 DE: 192 QRSD: 108 QT: 470 QTc: 406 Mobile: P: -27 DE: 192 QRS: 54 T: 47 INTERPRETIVE STATEMENTS: Marked sinus bradycardia Nonspecific ST and T wave abnormality Abnormal ECG Compared to ECG 01/20/2018 18:58:31 Junctional rhythm no longer present ST (T wave) deviation still present Electronically Signed On 01-21-18 14:34:31 CDT by Shaquille Gagnon
--- NOTE | 2018-01-21 14:39 | EKG ---
Test Date: 2018-01-20 Test Time: 18:58:31 Child Psychiatrist: RT Garcia MEASUREMENT RESULTS: Intervals: Rate: 46 MD: QRSD: 100 QT: 466 QTc: 407 [place]: P: MD: QRS: 57 T: 51 INTERPRETIVE STATEMENTS: Junctional rhythm Nonspecific ST abnormality Abnormal ECG Compared to ECG 07/20/2015 22:21:52 Junctional rhythm now present Sinus rhythm no longer present Atrial premature complex(es) no longer present First degree AV block no longer present Myocardial infarct finding no longer present Possible ischemia no longer present ST (T wave) deviation still present Electronically Signed On 01-21-18 14:34:32 CDT by Shaquille Gagnon
--- NOTE | 2018-01-21 15:03 | ECHO ---
HEIGHT: 5 ft 7 in WEIGHT: 299 lb 1.6 oz DATE OF STUDY: 01/21/[address]: 2-DIMENSIONAL: YES M.MODE: YES DOPPLER: YES COLOR FLOW: YES TDS: YES PORTABLE: YES DEFINITY: NO BUBBLE STUDY: NO DIAGNOSIS: CONGESTIVE HEART DISEASE CARDIAC HISTORY: CATHERIZATION: NO SURGERY: NO PROSTHETIC VALVE: NO PACEMAKER: NO MEASUREMENTS (cm) DIASTOLIC (NORMALS) SYSTOLIC (NORMALS) IVSd 1.4 (0.6-1.2) LA Diam 4.6 (1.9-4.0) LVEF 74% LVIDd 4.5 (3.5-5.7) LVIDs 2.6 (2.0-3.5) %FS 43% LVPWd 1.4 (0.6-1.2) Ao Diam 2.8 (2.0-3.7) 2 DIMENSIONAL ASSESSMENT: RIGHT ATRIUM: NORMAL LEFT ATRIUM: DILATED RIGHT VENTRICLE: NORMAL LEFT VENTRICLE: LEFT VENTRICLE HYPERTROPHY TRICUSPID VALVE: NORMAL MITRAL VALVE: MITRAL ANNULAR CALCIFICATION PULMONIC VALVE: NORMAL AORTIC VALVE: NORMAL PERICARDIAL EFFUSION: NONE AORTIC ROOT: NORMAL LEFT VENTRICULAR WALL MOTION: NORMAL DOPPLER/COLOR FLOW: MILD TRICUSPID REGURGITATION COMMENTS: NORMAL LEFT VENTRICULAR FUNCTION. EF 74%. LEFT VENTRICULAR HYPERTROPHY. LEFT ATRIAL ENLARGEMENT. MITRAL ANNULAR CALCIFICATION. AORTIC SCLEROSIS, NO STENOSIS. TECHNOLOGIST: COURT COBIAN
[2018-01-21 16:35] LABS: Potassium 5.2 mEq/L (3.6-5.0)
[2018-01-21] MEDS ORDERED: NA CHLORIDE 0.9% 1,000 ML IV SCH (16:51)
--- NOTE | 2018-01-21 18:10 | PN ---
Date of Progress Note: 01/21/2018 Subjective: The patient seen and examined. Chart reviewed and discussed with RN, Dr. Kincaid, and Dr. Gagnon. Overnight, the patient did develop some hypotension and had some arrhythmias. In the m orning was doing well. Did have some decreased urinary production. The patient was given 1 L of IV fluid bolus. Chest x-ray, ABG were obtained. Chest x-ray did not show any acute CHF or volume overl oad findings. ABG did show some acidosis. The patient had a code yellow mid morning due to blood pr essure being on the low side again. Initially had improved to 130s around 8 a.m. going down to 70 sy stolic at the time of the code yellow. The patient was given another L bolus, transferred to the ICU . The patient was asymptomatic at the time. Echocardiogram was also ordered. Family updated. All questions answered. Review of Systems: Negative except as above. Medications: Reviewed. Physical Examination: Vital Signs: Temperature 98.9, heart rate 52, blood pressure 130/58, respirations 18, O2 95% on 3 L via nasal cannula. General: Awake, alert, oriented x3, in some mild distress. Morbidly obese male, BMI 46. CV: S1, S2. Regular rate and rhythm. Peripheral pulses present bilaterally. Respiratory: Moving air well bilaterally. No wheezing. No crackles. Gastrointestinal: Abdomen is soft, distended. No tenderness to palpation. Positive bowel sounds. Extremities: No clubbing, cyanosis. Trace pedal edema. Neurologic: Nonfocal. Musculoskeletal: Right hip incision site clean, dry, and intact. Laboratory Data: Sodium 139, potassium 5.6, chloride 97, CO2 23, BUN 40, creatinine 2.65, glucose 15 7, calcium 8.2. WBC 11.1, H and H 7.1 and 27.3, platelets 157, neutrophils 73%. Chest x-ray shows n o peripheral mass or consolidation, no significant degree of failure or volume overload, suspected ch ronic interstitial lung disease. Assessment And Plan: An 82-year-old male with: 1.Right femoral fracture status post open reduction and internal fixation. Appreciate Dr. Castañeda' s input. The patient on deep venous thrombosis prophylaxis. 2.Status post mechanical fall. Continue physical therapy. 3.Hypotension. We will bolus with IV fluids and monitor urinary output. 4.Oliguria. 5.Acute on chronic kidney injury. Creatinine has gone up to 2 this morning. We will consult Nephro logy. Spoke with Dr. Kincaid this morning. We will continue to monitor. Challenge with some IV flu ids. 6.Diabetes mellitus type 2, insulin requiring with hyperglycemia and chronic kidney dysfunction. We will continue sliding scale. 7.Essential hypertension, currently hypotensive. We will hold all blood pressure medications. 8.Hyperlipidemia, mixed. We will continue statin. 9.Chronic obstructive pulmonary disease. We will continue breathing treatments. Chest x-ray shows chronic interstitial lung disease. Currently on 3 L of oxygen. 10.Obstructive sleep apnea. We will provide CPAP at night. 11.History of atrial flutter with rapid ventricular response, now with controlled ventricular rate. The patient not on any blood thinners. 12.Gastrointestinal and deep venous thrombosis prophylaxis. PPI and Lovenox. Plan: Obtain echocardiogram, transfer to ICU. We will monitor closely for signs of deterioration, m onitor blood pressure closely. May need to be started on pressors to keep MAP above 65. SA/MODL Voice ID: [id number] Report ID: [id number]
[2018-01-21 21:28] LABS: Hematocrit 25.9 % (39.6-49.0); MCH 30.1 pg (27.0-35.0); MCV 89.9 fL (80-100); MPV 7.5 fL (7.6-11.3); RBC Red Blood Cell Count 2.88 M/uL (4.33-5.43)
[2018-01-21] MEDS: GABAPENTIN 300 MG CAP PO SCH (21:31)
[2018-01-21] MEDS: ATORVASTATIN 40 MG TAB PO SCH (21:31)
[2018-01-21 22:16] LABS: Urine Protein/Creatinine Ratio 0.18 (<0.15)
[2018-01-21 22:16] LABS: Thyroid Stimulating Hormone 2.96 uIU/mL (0.34-5.60)
--- NOTE | 2018-01-22 02:06 | CON ---
Date of Consultation: 01/21/2018 Consulting Physician: Dr. Sanchez. Reason For Consultation: Elevated BUN and creatinine, hyperkalemia, fluid management. History Of Present Illness: This is a pleasant, 82-year-old gentleman, well known to me from the off ice with significant past medical history of diabetes complicated with neuropathy and nephropathy, hy pertension, congestive heart failure, COPD, morbid obesity, chronic kidney disease stage 3, status po st acute kidney injury, require dialysis, recovered well back in 2014. The patient was in his regula r state of health. The patient last time was seen in the office with creatinine of 1.4 with GFR of 4 7. The patient was admitted to the hospital for hip fracture, underwent hip surgery, tolerated the s urgery very well, but yesterday started developing hypotension, start with fluid resuscitation and bl ood pressure could not maintain and even though the patient received almost 2.5 L, the patient starte d developing some crackles and shortness of breath. Repeated lab showing worsening kidney function, and hyperkalemia for that reason, we have been consulted. The patient was move to the ICU. The roger ent over the night, did not have any significant urine output. Reviewing the record, the patient blo od pressure being in the 70. There is no IV contrast. The patient had valsartan with hydrochlorothi azide and Lasix yesterday and clonidine day before. The patient's currently blood pressure around sy stolic 100, still no urine output. The patient maintained good oxygenation on nasal cannula. Past Medical History: Include: 1.Hypertension. 2.Diabetes complicated with neuropathy and nephropathy. 3.Congestive heart failure. 4.COPD. 5.Morbid obesity. 6.Chronic kidney disease secondary to cardiorenal normal ejection fraction. Diastolic dysfunction. Baseline creatinine 1.4, GFR of 45. Social History: Ex-smoker, deny alcohol, denied drug abuse. Family History: Positive for hypertension. Past Surgical History: Include hip surgery, wrist surgery, finger surgery, PermCath placement and re moval. Home Medications: Include: 1.Omeprazole. 2.Atorvastatin. 3.Insulin. 4.Lasix. 5.Carvedilol. 6.Amiodarone. 7.Telmisartan with hydrochlorothiazide. 8.Januvia. Current Medications In The Hospital Include: 1.Amiodarone. 2.Atorvastatin. 3.Cardura. 4.Gabapentin. 5.Lasix. 6.Hydrochlorothiazide. 7.Zofran. 8.Pantoprazole. 9.Florinef. 10.Insulin. 11.Normal saline at 100. 12.Fentanyl. Review of Systems: Head and Neck: No red eye. No ear pain. GI: No nausea, no vomiting. : No urine output. CAREER DEVELOPMENT COORDINATOR: Not applicable. Respiratory: Has shortness of breath. Cardiovascular: Has leg swelling. Endocrine: No polydipsia. Skin: No rash. Neuro: Has neuropathy. Musculoskeletal: Has hip pain. Physical Examination: Vital Signs: Blood pressure of 100/60, pulse of 88. Chest: Crackles on the base. Heart: S1, S2. Regular. Abdomen: Soft, nontender. Extremity: Trace edema. Neuro: Alert, oriented x3. Nonfocal. Laboratory Data: WBC 10.3, H and H 8.9/26.9, platelet of 152. On admission, H and H was 11.5/35.9. INR 1.1. ABG; pH of 7.28, CO2 of 48, O2 of 54, base access -4, saturation of 85. Sodium 126, potas sium 5.2, bicarb 23, BUN 48, creatinine 3.2, GFR of 18. Calcium 8.5. On admission lab, sodium 134, potassium 4.5, bicarb 25, BUN 35, creatinine 1.8, calcium 8.9. Earlier this morning, sodium 128, pot assium 5.6, bicarb 24, BUN 41, creatinine 3, GFR of 20, calcium 8.1. Assessment And Plan: 1.Acute kidney injury secondary to poor perfusion, acute tubular necrosis, low blood pressure, unkno wn etiology of possible cardiogenic shock/hypovolemic shock, given the drop in H and H. 2.With mild hyperkalemia, no acidosis. I am going to go ahead and decrease IV fluid to 50 per hour, and will monitor the patient. I had long discussion with the patient and family by bedside nasra g the condition of the patient and possibility. If kidney function continue to deteriorate or patien t still oliguric, the patient may need renal replacement therapy of dialysis finally and the patient verbalized understanding, and agreed that the patient needing dialysis to go ahead and start. I am g oing to go ahead as I mentioned, we will continue hydration and we will follow up repeated chemistry. 3.Hyperkalemia, hyponatremia, raise the possibility of adrenal insufficiency. The patient already o n Florinef. I am going to go ahead and send for cortisol level and send for TSH, and we will follow up the patient. 4.The patient is going to be giving the cocktail including albuterol 10 mg, calcium gluconate and D5 0 with regular insulin. We will follow up. 5.Hyponatremia, secondary to dilutional giving the kidney function and cardiac. I again send for co rtisol and TSH. Continue fluid restriction. 6.Anemia possible secondary to blood loss. We are going to monitor. 7.Shock possible hypovolemic/cardiogenic. I am going to go ahead and repeat cardiac enzyme and EKG. We will follow up with Cardiology. 8.Hip fracture. We will follow up with Ortho. 9.Hypertension, currently hypotension. We will hold all blood pressure medication. 10.Diabetes, as by primary. Thank you, Dr. Sanchez for allowing us to participate in the care of your patient. Case discussed with the patient and family by bedside, they verbalized understanding. Time spent 70 minutes. SHARON Voice ID: [id number] Report ID: [id number]
[2018-01-22 05:42] LABS: Albumin 2.8 g/dL (3.2-5.5); Magnesium 1.9 mg/dL (1.8-2.5); Phosphorus 5.6 mg/dL (2.5-4.3); Potassium 4.6 mEq/L (3.6-5.0)
[2018-01-22] MEDS: HYDROCODONE/APAP 7.5/325 MG TAB PO PRN (05:50)
[2018-01-22] MEDS: ENOXAPARIN 30 MG/0.3 ML SQ SCH ×2 (05:50→17:22)
[2018-01-22 05:54] LABS: Absolute Lymphocytes (CBC) 1.2 K/uL (0.7-4.9); Absolute Monocytes 1.1 K/uL (0.1-1.3); Absolute Neutrophil 6.8 K/uL (1.8-8.0); Basophils % 0.6 % (0-1.3); Eosinophils % 3.4 % (0-4.4); Hematocrit 25.1 % (39.6-49.0); Lymphocytes % 12.8 % (15.3-44.8); MCH 30.4 pg (27.0-35.0); MCV 88.9 fL (80-100); MPV 7.8 fL (7.6-11.3); Monocytes % 11.6 % (3.3-12.3); RBC Red Blood Cell Count 2.82 M/uL (4.33-5.43)
[2018-01-22] MEDS: INSULIN -REGULAR HUMAN 50 UNIT/0.5 ML ML SQ SCH ×4 (07:30→21:00)
[2018-01-22] MEDS: HOME MED 1 EA UNK (Linaclotide [Linzess] 1 CAP) PO SCH (09:00)
[2018-01-22] MEDS ORDERED: FUROSEMIDE 40 MG/4 ML VIAL IV ONE (10:00)
[2018-01-22] MEDS: POLYETHYL GLY 3350 17 GM/DOSE PO PRN (10:03)
[2018-01-22] MEDS: LACTOBACILLUS/ACIDOPHILUS TAB PO SCH ×2 (10:03→21:53)
[2018-01-22] MEDS: FLUDROCORTISONE 0.1 MG TAB PO SCH (10:03)
[2018-01-22] MEDS: PANTOPRAZOLE 40MG TABLET PO SCH (10:03)
[2018-01-22] MEDS: DOCUSATE NA 100 MG CAP PO SCH ×2 (10:04→21:53)
[2018-01-22] MEDS: INSULIN DETEMIR 100 UNIT/1 ML INSULIN SQ SCH ×2 (10:04→21:54)
[2018-01-22] MEDS: AMIODARONE HCL 200 MG TAB PO SCH (10:04)
[2018-01-22] MEDS: SITAGLIPTIN PHOS 100 MG TAB PO SCH (11:28)
[2018-01-22] MEDS: DOCOSAHEXANOIC AC/EPA 1000 MG PO SCH (11:28)
[2018-01-22 12:13] LABS: Urine Appearance CLOUDY; Urine Bilirubin NEGATIVE (NEG); Urine Blood 2+ (NEG); Urine Color YELLOW; Urine Glucose NEGATIVE (NEG); Urine Protein NEGATIVE (NEG); Urine Urobilinogen 0.2 mg/dL (0.2-1.0)
[2018-01-22 12:15] LABS: Urine Microscopic Reflex ORDER UMIC
[2018-01-22 12:16] LABS: UR POTASSIUM 16.5 mEq/L (25-120)
[2018-01-22 12:22] LABS: Urine Bacteria <20 /HPF (NONE SEEN); Urine Culture Reflex Order REFLEXED
--- NOTE | 2018-01-22 12:45 | CON ---
Date of Consultation: 01/21/2018 The patient was admitted on 01/19/2018 for right femoral fracture and underwent surgery. I am seeing him today for low cardiac output and possible congestive heart failure. The patient was seen on 09/2017. Additional Admitting Physician: Ingrid Sanchez MD History Of Present Illness: Mr. Soto is an 82-year-old white male. He really has an extensive pa st medical history, but not a cardiac history. He has a history of dyslipidemia, hypertension, diabe teresita, neuropathy, gastroesophageal reflux disease, came in with a right femoral fracture, underwent velasco rgery which was uneventful. He has gained 26 pounds since admission. Has a low urine output. Creat inine went up to 3.04, hemoglobin 8.9. His glucose is hanging at about 180. He was transferred to [facility] ICU because of hypoxia. PO2 of 54, pCO2 48, pH is 7.28, potassium was 5.6. Sodium is 128. Compl ained of dyspnea on exertion, but no chest pain, just overall fatigued. Past Medical History: As stated above. Allergies: NONE. Review of Systems: Negative. Social History: Negative. Family History: Noncontributory. Medications: Include Lipitor, Pacerone, Coreg, Lasix, insulin, Neurontin, Prilosec, Linzess, Januvia , Micardis, and hydrochlorothiazide. In the hospital, he is on valsartan and hydrochlorothiazide ins tead of Micardis and hydrochlorothiazide. He remains on amiodarone. Physical Examination: Vital Signs: Noted. He was afebrile. He was sinus bradycardic. HEENT: Negative. Neck: Supple without bruit. Chest: Clear to auscultation and percussion. Cardiac: Revealed a regular rhythm and rate with an S4, gallops, and an aortic sclerosis murmur. Abdomen: Benign. Extremities: Revealed 1+ edema. Diagnostic Data: As stated above. An echocardiogram, which was done today showed left ventricular h ypertrophy and possible left ventricular compliance issue, but no wall motion abnormalities otherwise . His ejection fraction was 70%. There were no effusions. Impression And Plan: 1.Low urine output, elevated creatinine, elevated potassium and low sodium, most likely consistent w ith acute renal failure. 2.Normal ejection fraction with left ventricular hypertrophy and mild diastolic dysfunction. 3.Bradycardia. 4.History of atrial fibrillation . 5.Hypertension. 6.Diabetes. 7.Dyslipidemia, on Lipitor. 8.Neuropathy. 9.Gastroesophageal reflux disease. 10.Anemia. Unfortunately, we are dealing more with a renal issue than a cardiac issue. We would de finitely stop the valsartan and hydrochlorothiazide. I would hold the amiodarone, renal consultation and we will see how he does. We will see what Nephrology recommend, but certainly diuresis with robb e IV Lasix may be useful. There is nothing else to see whether his creatinine will improv e or get worse. I will discuss the case further with Dr. Sanchez. SID/SUSHANT Voice ID: [id number] Report ID: [id number]
--- NOTE | 2018-01-22 15:24 | CON ---
Reason For Consult: The patient has transient junctional rhythm. History Of Present Illness: Mr. Soto came to the hospital because of a fall and a hip fracture. He underwent hip fracture repair and since then he has had trouble. He developed hypotension, was tr ansferred to the ICU. Hypotension resolved when he was given some intravenous fluids to replace what was probably some blood and extracellular fluid loss from the surgery and being n.p.o. Mr. Soto has intermittent atrial fibrillation or paroxysmal atrial fibrillation. He spent all of his time her e in the hospital either in sinus rhythm or junctional rhythm. He takes amiodarone 200 mg once a day for that. Medications: Outpatient medications have been sodium chloride, Lipitor 40, insulin, gabapentin, furo semide, Coreg 12.5 b.i.d., amiodarone 200 once a day, daily telmisartan with hydrochlorothiazide, Brando uvia, Linzess, and omeprazole. Social History: He has no allergies. He uses no tobacco. Never required intracoronary stents or by pass surgery, valve surgery or pacemakers. Physical Examination: General: 5 feet, 7 inches, 288 pounds, morbidly obese. He is wearing a BiPAP mask, tends to retain CO2 and probably has sleep apnea. Lungs: Do not reveal crackles. Heart: Regular rate and rhythm. Diagnostic Data: His rhythm on the monitor is sinus bradycardia, a first-degree AV block. VA interv al about 240 milliseconds. Impression: The patient is doing fine with his rhythm for now. I think when he was relatively acido tic, he was having more trouble. ANDREAS/SUSHANT Voice ID: [id number] Report ID: [id number]
[2018-01-22] MEDS: ATORVASTATIN 40 MG TAB PO SCH (21:54)
[2018-01-22] MEDS: GABAPENTIN 300 MG CAP PO SCH (21:54)
[2018-01-22] MEDS: TRAZODONE 50 MG TABLET PO PRN (22:53)
--- NOTE | 2018-01-23 03:37 | PN ---
Date of Progress Note: 01/22/2018 Subjective: The patient is doing much better today. No nausea. No vomiting. Blood pressure stabil ized. The patient did not require any pressor. The patient is on IV fluid 60 per hour. Physical Examination: Vital Signs: When I saw the patient, blood pressure 114/67, pulse of 84, afebrile. The patient had urine output of 1400. Chest: Crackles bilateral. Heart: S1, S2. Regular. Abdomen: Soft, nontender. Extremities: +1 edema. Laboratory Data: WBC 9.5, H and H 8.6/25.1, platelets 152. Sodium 128, potassium 4.6, bicarb 24, ch loride 98, BUN 54, creatinine 2.8. Medication has been reviewed. Assessment And Plan: 1.Acute kidney injury secondary to poor perfusion, acute tubular necrosis, low blood pressure, on th e recovery, slightly on the wet side. I am going to give the patient Lasix today and we will follow up. 2.Hypertension with incidence of low blood pressure. I am going to be cautious on adding any blood pressure medication. 3.Hyponatremia, dilutional, secondary to renal failure and congestive heart failure. We will follow up after the diuresis. 4.Hip fracture. We will follow up with the primary. The patient is cleared from the renal standpoint to transfer out of the unit. The case is discussed with the patient and family by bedside, verbalized understanding. Discussed with the primary hospitalist. SHARON Voice ID: [id number] Report ID: [id number]
[2018-01-23] MEDS: ENOXAPARIN 30 MG/0.3 ML SQ SCH ×2 (06:12→17:19)
[2018-01-23 06:13] LABS: Absolute Lymphocytes (CBC) 0.7 K/uL (0.7-4.9); Absolute Monocytes 0.9 K/uL (0.1-1.3); Absolute Neutrophil 6.4 K/uL (1.8-8.0); Basophils % 0.3 % (0-1.3); Eosinophils % 4.9 % (0-4.4); Hematocrit 26.5 % (39.6-49.0); Lymphocytes % 8.1 % (15.3-44.8); MCH 30.8 pg (27.0-35.0); MCV 88.8 fL (80-100); Monocytes % 10.7 % (3.3-12.3); RBC Red Blood Cell Count 2.98 M/uL (4.33-5.43)
[2018-01-23 06:16] LABS: Albumin 2.6 g/dL (3.2-5.5); Phosphorus 4.4 mg/dL (2.5-4.3); Potassium 4.5 mEq/L (3.6-5.0)
[2018-01-23] MEDS: INSULIN -REGULAR HUMAN 50 UNIT/0.5 ML ML SQ SCH ×4 (07:30→21:00)
[2018-01-23] MEDS: HOME MED 1 EA UNK (Linaclotide [Linzess] 1 CAP) PO SCH (09:00)
[2018-01-23] MEDS: FLUDROCORTISONE 0.1 MG TAB PO SCH (09:00)
[2018-01-23] MEDS: PANTOPRAZOLE 40MG TABLET PO SCH (09:41)
[2018-01-23] MEDS: SITAGLIPTIN PHOS 100 MG TAB PO SCH (09:41)
[2018-01-23] MEDS: DOCOSAHEXANOIC AC/EPA 1000 MG PO SCH (09:42)
[2018-01-23] MEDS: DOCUSATE NA 100 MG CAP PO SCH ×2 (09:42→21:52)
[2018-01-23] MEDS: HYDROCODONE/APAP 7.5/325 MG TAB PO PRN (09:42)
[2018-01-23] MEDS: LACTOBACILLUS/ACIDOPHILUS TAB PO SCH ×2 (09:42→21:53)
[2018-01-23] MEDS: POLYETHYL GLY 3350 17 GM/DOSE PO PRN (09:43)
[2018-01-23] MEDS: INSULIN DETEMIR 100 UNIT/1 ML INSULIN SQ SCH ×2 (09:43→21:00)
--- NOTE | 2018-01-23 16:34 | PN ---
Date of Progress Note: 01/23/2018 Subjective: The patient seen and examined. Chart reviewed and case discussed with RN. The patient is doing better, however, still complains that he has not had a bowel movement and complains of some abdominal distention. Pain is controlled. The patient is not working well with physical therapy, ba rely getting out of bed. Review of Systems: Negative except as above. Medications: Reviewed. Physical Examination: Vital Signs: Temperature 98.9, heart rate 74, blood pressure 128/59, respirations 18, O2 92% on 3 L via nasal cannula. General: Awake, alert, oriented x3. Morbidly obese male, somewhat ill-appearing, elderly. CV: S1, S2. Regular rate and rhythm. Peripheral pulses present. Respiratory: Moving air well bilaterally. No wheezing. No stridor. Gastrointestinal: Abdomen is soft, obese, distended, nontender. Positive bowel sounds. Extremities: No clubbing, cyanosis. Trace pedal edema. Neurologic: Nonfocal. Musculoskeletal: Right hip incision site clean, dry, and intact. Skin: The patient does have healed and dry ulceration on the palmar aspect of the right foot. No si gns of infection. No erythema. No drainage. Laboratory Data: Sodium 132, potassium 4.5, chloride 99, CO2 27, BUN 48, creatinine 1.78, glucose 14 2, calcium 8.2, phosphorus 4.4, albumin 2.6. WBC 8.4, H and H 9.2 and 26.5, platelets 178. Urine cu lture shows no growth. Assessment And Plan: An 82-year-old male with: 1.Right femoral fracture status post open reduction and internal fixation. Continue Lovenox for ricardo p venous thrombosis prophylaxis. 2.Status post mechanical fall. Continue PT. 3.Acute kidney injury. Creatinine improved. Appreciate Nephrology input. 4.Hypotension. Blood pressure is improved. 5.Oliguria, resolved. 6.Diabetes mellitus type 2, insulin requiring with hyperglycemia and chronic kidney dysfunction. Co ntinue sliding scale insulin. 7.Essential hypertension, stable. 8.Hyperlipidemia, mixed. Continue statin. 9.Chronic obstructive pulmonary disease. Continue nebulizer treatments. Currently on supplemental oxygen 3 L via nasal cannula. 10.Obstructive sleep apnea. Continue CPAP at night. 11.History of atrial flutter, now with controlled ventricular rate. The patient is not on blood thi nners due to history of gastrointestinal bleed. 12.Gastrointestinal and deep venous thrombosis prophylaxis. PPI and Lovenox. 13.Hypertensive heart disease. Echocardiogram reviewed. Appreciate Dr. Gagnon's input. 14.Acute blood loss anemia secondary to surgery. We will continue to monitor H and H, transfuse as needed. Plan: Continue PT eval, SNF placement. /SUSHANT Voice ID: [id number] Report ID: [id number]
[2018-01-23] MEDS ORDERED: MAGNESIUM CITRATE 300 ML BOT PO SCH (18:00)
[2018-01-23] MEDS: ATORVASTATIN 40 MG TAB PO SCH (21:53)
[2018-01-23] MEDS: GABAPENTIN 300 MG CAP PO SCH (21:53)
[2018-01-23] MEDS ORDERED: PROPOFOL 1,000 MG/100 ML VIAL IV ONE (22:40)
--- NOTE | 2018-01-23 22:47 | P.OP ---
Date of Service: 01/23/18 Endotracheal intubation. A time-out was completed verifying correct patient, procedure, site, positioning , and special equipment if applicable. The patient was placed in a flat position. The patient was easily ventilated using an ambu bag. The MAC 3 BLADE was used and inserted into the oropharynx at which time there was a Grade 1 view of the vocal cords. A 7.5-polish endotracheal tube was inserted and visualized going through the vocal cords. The stylette was removed. Colorimetric change was visualized on the CO2 meter. Breath sounds were heard in both lung lomas equally. The endotracheal tube was placed at 23 cm, measured at the teeth. CXR is pending.
[2018-01-23] MEDS ORDERED: PROPOFOL 1,000 MG/100 ML VIAL IV PRN (22:54)
--- NOTE | 2018-01-23 22:55 | P.PN ---
Date of Service: 01/23/18 Around 22:30 the patient was noticed to be on respiratory distress. He become diaphoretic and subsequently was unresponsive. Idioventricular rhythm at 30's BPM was noted on telemetry. Code 99 was called. At arrival to his room, he was unresponsive, with agonal breathing, but palpable pulse. He was intubated, and then transferred to ICU. Currently he is hemodyncamically stable. Pending CXR, ABG, CBC/d and CMP. Continue close follow up.
[2018-01-23] MEDS ORDERED: HALOPERIDOL LACT 5 MG/ML INJ IV PRN (23:27)
[2018-01-23] MEDS ORDERED: NA CHLORIDE 0.9% 250 ML IV PRN (23:27)
[2018-01-23 23:35] LABS: Absolute Lymphocytes (CBC) 0.7 K/uL (0.7-4.9); Absolute Neutrophil 7.3 K/uL (1.8-8.0); Basophils % 0.5 % (0-1.3); Hematocrit 27.6 % (39.6-49.0); Lymphocytes % 7.2 % (15.3-44.8); MCH 29.6 pg (27.0-35.0); MCV 90.1 fL (80-100); MPV 7.9 fL (7.6-11.3); Monocytes % 10.6 % (3.3-12.3); RBC Red Blood Cell Count 3.07 M/uL (4.33-5.43)
[2018-01-23 23:41] LABS: Potassium 5.1 mEq/L (3.6-5.0)
[2018-01-23 23:42] LABS: Protime INR 1.17
[2018-01-23 23:44] LABS: Magnesium 2.2 mg/dL (1.8-2.5)
[2018-01-23 23:56] LABS: Arterial Blood Carboxyhemoglob 2.3 % (0-1.5); Blood Gas Oxyhemoglobin 93.7 % (94-97); Blood O2 Saturation 97.1 % (92-98.5)
[2018-01-24 00:01] LABS: CKMB Creatine Kinase MB 26.3 ng/ml (0.3-4.0)
--- NOTE | 2018-01-24 01:59 | PN ---
Date of Progress Note: 01/23/2018 Chief Complaint: Acute kidney injury, [id number], nonoliguric, associated with renal hypoperfusion and secondary to nonoliguric acute tubular necrosis, triggered by hypotension. The patient developed some fluid overload and Lasix was started to control volemia. The patient was found to have dilutional hyponatremia. Sodium level was 128. Review of Systems: Denies fever or chills, no chest pain, no dyspnea. Physical Examination: Lungs: Clear to auscultation bilaterally. Heart: S1 and S2. Abdomen: Soft, benign. Extremities: Slight edema. Impression And Plan: 1. Acute kidney injury, nonoliguric. Renal function has not improved significantly since yesterday. The patient will have workup to rule out bladder outlet obstruction. 2. Continue to monitor urine for an evidence of urinary retention. 3. Hyponatremia. Sodium level gradually improved from 126 to 128 and to 132 over last 48 hours. Continue to monitor electrolytes. 4. Hypoalbuminemia. Urine protein-creatinine ratio is 0.18. There is no significant proteinuria present. 5. Urinary retention. Continue Flomax and continue to re-evaluate bladder scan. I spent total 36 min including 26 min to coordinate care plan. MARION/SUSHANT Voice ID: [id number] Report ID: [id number]
[2018-01-24 02:49] LABS: Arterial Blood Carboxyhemoglob 2.3 % (0-1.5); Blood Gas Oxyhemoglobin 92.1 % (94-97); Blood O2 Saturation 96.1 % (92-98.5)
[2018-01-24] MEDS: ENOXAPARIN 30 MG/0.3 ML SQ SCH ×2 (05:36→17:51)
[2018-01-24 05:38] LABS: Absolute Lymphocytes (CBC) 0.8 K/uL (0.7-4.9); Absolute Neutrophil 6.8 K/uL (1.8-8.0); Basophils % 0.8 % (0-1.3); Eosinophils % 3.3 % (0-4.4); Hematocrit 23.1 % (39.6-49.0); Lymphocytes % 9.2 % (15.3-44.8); MCH 29.5 pg (27.0-35.0); MCV 89.5 fL (80-100); MPV 7.9 fL (7.6-11.3); Monocytes % 10.7 % (3.3-12.3); RBC Red Blood Cell Count 2.58 M/uL (4.33-5.43)
[2018-01-24 05:59] LABS: Albumin 2.4 g/dL (3.2-5.5); Phosphorus 4.1 mg/dL (2.5-4.3)
[2018-01-24 06:12] LABS: Potassium 5.7 mEq/L (3.6-5.0)
[2018-01-24] MEDS ORDERED: SOD POLYSTYREN SUL 15 GM/60 ML UCUP FT ONE (06:22)
[2018-01-24] MEDS ORDERED: D50W 25 GM/50 ML SYRINGE IV ONE ×2 (06:23→06:45)
[2018-01-24] MEDS ORDERED: INSULIN -REGULAR HUMAN 50 UNIT/0.5 ML ML IV ONE (06:24)
[2018-01-24] MEDS: INSULIN -REGULAR HUMAN 50 UNIT/0.5 ML ML SQ SCH ×4 (07:30→21:00)
--- NOTE | 2018-01-24 08:04 | RAD REPORT ---
EXAM DESCRIPTION: [facility] Single View01/23/2018 11:03 pm CLINICAL HISTORY: Shortness of breath COMPARISON: January 21 FINDINGS: An endotracheal tube is been inserted with its tip several centimeters above the eleazar. M ild bilateral interstitial lung opacities are seen. The heart remains enlarged IMPRESSION: Mild bilateral interstitial lung opacities probably represent mild interstitial pulmonar y edema superimposed over chronic changes
--- NOTE | 2018-01-24 08:06 | RAD REPORT ---
[facility] 6[facility]22 am CLINICAL HISTORY: Cough COMPARISON: January 23, 2018 FINDINGS: An endotracheal tube has its tip well above the eleazar. No change has occurred in mild bilateral interstitial lung opacities. The heart remains enlarged IMPRESSION: No change in mild bilateral interstitial lung opacities
[2018-01-24] MEDS: DOCOSAHEXANOIC AC/EPA 1000 MG PO SCH (08:40)
[2018-01-24] MEDS: DOCUSATE NA 100 MG CAP PO SCH ×2 (08:40→21:15)
[2018-01-24] MEDS: SITAGLIPTIN PHOS 100 MG TAB PO SCH (08:41)
[2018-01-24] MEDS: LACTOBACILLUS/ACIDOPHILUS TAB PO SCH ×2 (08:41→21:15)
[2018-01-24] MEDS: FLUDROCORTISONE 0.1 MG TAB PO SCH (08:41)
[2018-01-24] MEDS: INSULIN DETEMIR 100 UNIT/1 ML INSULIN SQ SCH ×2 (08:42→21:00)
[2018-01-24] MEDS: PANTOPRAZOLE 40MG TABLET PO SCH (08:44)
[2018-01-24] MEDS: HOME MED 1 EA UNK (Linaclotide [Linzess] 1 CAP) PO SCH (08:44)
[2018-01-24] MEDS: LORazepam 2 MG/ML VIAL IV PRN ×3 (08:51→23:32)
[2018-01-24] MEDS: FAMOTIDINE 20 MG/2 ML VIAL IV SCH ×2 (08:51→21:15)
--- NOTE | 2018-01-24 10:57 | RAD REPORT ---
EXAM DESCRIPTION: RAD - Abdomen 1 View (KUB) - 01/24/2018 10:40 am CLINICAL HISTORY: Abdominal pain and distention. COMPARISON: None. FINDINGS: The bowel gas pattern is non-obstructive. No evidence of free air or pneumatosis. Enteric tube is in the stomach. No significant bony findings. IMPRESSION: Enteric tube is in the stomach. No bowel obstruction present.
[2018-01-24 12:33] LABS: Hematocrit 25.7 % (39.6-49.0)
[2018-01-24 12:35] LABS: HBsAG Nonreactive (Nonreactive)
--- NOTE | 2018-01-24 12:55 | PN ---
Subjective: Mr. Soto left the ICU yesterday and at about 11:00 p.m. yesterday became unresponsive . His CO2 level was 53. His pO2 level was fine. He was intubated and reestablished a normal rhythm while he was acidotic, respiratory acidosis. His heart rate slowed some. It responded immediately when he was intubated. I think we should stop any medicines that can slow his heart rate and I think the most important thing is, if he leaves the ICU again, he should definitely have BiPAP and CPAP is something he uses at home. He has known sleep apnea and I believe it is the respiratory difficulty that is leading to a cardiac rhythm problem. We will stop beta blockers, stop amiodarone, follow him along. If he requires some other therapy for AFib, he should probably be through an electrophysiolo gist and might be better to go the route of ablation. I recommend we primarily discontinue amiodaron eRodger HINES Voice ID: [id number] Report ID: [id number]
[2018-01-24 12:57] LABS: Albumin 2.7 g/dL (3.2-5.5); Bilirubin Direct 0.1 mg/dL (0-0.2); Bilirubin Total 0.8 mg/dL (0.3-1.2); Potassium 5.3 mEq/L (3.6-5.0); Protein, Total 6.4 g/dL (6.0-8.3)
--- NOTE | 2018-01-24 14:04 | PN ---
Date of Progress Note: 01/24/2018 Subjective: The patient seen and examined. Chart reviewed and case discussed with RN. The patient was noncompliant with his CPAP and he had pulled off his oxygen. He was found to be in respiratory d istress. Code 99 was called after code yellow and the patient was subsequently intubated, [facility]. This morning, the patient is awake and alert. Still intubated. Review of Systems: Limited due to the patient's medical condition. Medications: Reviewed. Physical Examination: Vital Signs: Temperature 98.7, heart rate 61, blood pressure 119/59, respirations 17, O2 100% on ET tube. General: Awake, alert, intubated, not sedated. CV: S1, S2. No murmurs. Peripheral pulses present. Respiratory: Mechanical breath sounds. No wheezing or crackles. Gastrointestinal: Abdomen is distended. Positive bowel sounds. No guarding or rigidity. No tender ness. Extremities: No clubbing, cyanosis. The patient does have pedal edema. Neuro: Awake, alert, opens eyes spontaneously, moves all extremities. Follows commands. Laboratory Data: Sodium 134, potassium 5.7, chloride 100, CO2 29, BUN 56, creatinine 2.09, glucose 1 22, calcium 7.9, phosphorus 4.1, albumin 2.4. ABG; pH 7.38, pCO2 48.4, pO2 85, bicarb 28. WBC 9, H and H 7.6 and 23.1, platelets 187, neutrophils 76%. Urine culture shows no growth. Chest x-ray show s no change in mid bilateral interstitial lung opacities. KUB shows bowel gas pattern is nonobstruct ahmet, no evidence of free air or free air or pneumatosis. Enteric tube is in stomach. Assessment And Plan: An 82-year-old male with: 1.Acute respiratory failure. The patient is currently intubated. We will continue with weaning tri als and extubate. ABGs significantly improved, likely related to hypercapnia and hypoxia from sleep apnea. 2.Right femoral fracture status post open reduction and internal fixation, doing well. We will cont inue Lovenox for deep venous thrombosis prophylaxis. 3.Status post mechanical fall. Continue PT. 4.Acute on chronic kidney injury. Creatinine has gone up again today, likely related to the respira tory arrest. 5.Acute blood loss anemia, likely related to procedure. We will recheck H and H in the afternoon an d transfuse as needed. 6.Diabetes mellitus type 2, insulin requiring with hyperglycemia, chronic kidney dysfunction. We wi ll continue sliding scale insulin. 7.Essential hypertension, stable. 8.Hyperlipidemia, mixed. Continue statin. 9.Chronic obstructive pulmonary disease. We will continue nebulizer treatments. The patient takes supplemental oxygen. 10.Obstructive sleep apnea. The patient noncompliant with CPAP. He has been counseled regarding we aring CPAP religiously due to recurrent respiratory failure. He voiced understanding. Family at the bedside. 11.History of atrial flutter, controlled ventricular rate, not on any anticoagulation due to history of gastrointestinal bleed. 12.Hypertensive heart disease. 13.Gastrointestinal and deep venous thrombosis prophylaxis with PPI and Lovenox. Plan: Extubate is successful with weaning trials. LTAC referral. /SUSHANT Voice ID: [id number] Report ID: [id number]
[2018-01-24] MEDS ORDERED: SOD POLYSTYREN SUL 15 GM/60 ML UCUP PO ONE (14:35)
[2018-01-24 14:43] LABS: Hepatitis C Virus RNA (PCR)log <1.18 log IU/mL
[2018-01-24] MEDS: ATORVASTATIN 40 MG TAB PO SCH (21:15)
[2018-01-24] MEDS: DOXYCYCLINE 100 MG in NA CHLORIDE 0.9% 100 ML IVPB SCH (21:15)
[2018-01-24] MEDS: GABAPENTIN 300 MG CAP PO SCH (21:15)
[2018-01-24] MEDS: HYDROCODONE/APAP 7.5/325 MG TAB PO PRN (21:16)
[2018-01-24] MEDS ORDERED: FUROSEMIDE 40 MG/4 ML VIAL IV ONE (22:14)
[2018-01-25] MEDS: FENTANYL CITR 100 MCG/2 ML IV PRN ×3 (02:49→20:11)
--- NOTE | 2018-01-25 03:12 | PN ---
Date of Progress Note: 01/24/2018 Reason For Visit: The patient had respiratory failure secondary to hypercapnic. Transferred to ICU. Physical Examination: Vital Signs: Blood pressure of 116/51, pulse of 56. Chest: Crackles bilateral. Heart: S1, S2. Regular. Abdomen: Soft, nontender. Extremities: +1 edema. Urine output, the patient had 2600. Laboratory Data: WBC 9, H and H 8.4/25.7, platelet 187. Sodium 134, potassium 5.3, bicarb 29, BUN 5 6, creatinine 2.9. Calcium 7.9, phos 4.1. Current Medications: The patient on it includes doxycycline, Lovenox, atorvastatin, gabapentin, marlyn tion, Pepcid, Zofran, pantoprazole, Florinef, fentanyl. Assessment And Plan: 1.Acute kidney injury secondary to cardiorenal slightly on the wet side. I am going to go ahead and give the patient a single dose of Lasix and we will follow up. 2.Hypertension, controlled optimal, currently on the lower side. We will hold on blood pressure med ication. 3.Hyperkalemia secondary to renal failure. The patient received the treatment already. I am going to go ahead and give Lasix and we will follow up. 4.Anasarca secondary to cardiorenal. 5.Hypercapnic respiratory failure. Continue vent management. Follow up with the primary. 6.Hip fracture status post repair. We will follow up with Ortho. Case discussed with the patient and daughter by bedside, verbalized understanding. SHARON Voice ID: [id number] Report ID: [id number]
[2018-01-25 05:16] LABS: Arterial Blood Carboxyhemoglob 2.4 % (0-1.5); Blood Gas Oxyhemoglobin 87.9 % (94-97); Blood O2 Saturation 90.5 % (92-98.5)
[2018-01-25] MEDS: ENOXAPARIN 30 MG/0.3 ML SQ SCH ×2 (05:27→17:22)
[2018-01-25 06:06] LABS: Absolute Lymphocytes (CBC) 0.9 K/uL (0.7-4.9); Absolute Monocytes 0.7 K/uL (0.1-1.3); Absolute Neutrophil 5.1 K/uL (1.8-8.0); Basophils % 0.7 % (0-1.3); Eosinophils % 6.4 % (0-4.4); Hematocrit 26.2 % (39.6-49.0); Lymphocytes % 11.8 % (15.3-44.8); MCH 29.4 pg (27.0-35.0); MCV 90.4 fL (80-100); Monocytes % 10.4 % (3.3-12.3)
[2018-01-25 06:23] LABS: Albumin 2.5 g/dL (3.2-5.5); Magnesium 2.6 mg/dL (1.8-2.5); Phosphorus 4.4 mg/dL (2.5-4.3); Potassium 4.1 mEq/L (3.6-5.0)
[2018-01-25] MEDS: INSULIN -REGULAR HUMAN 50 UNIT/0.5 ML ML SQ SCH ×3 (07:30→17:29)
[2018-01-25] MEDS: HOME MED 1 EA UNK (Linaclotide [Linzess] 1 CAP) PO SCH (08:25)
[2018-01-25] MEDS: INSULIN DETEMIR 100 UNIT/1 ML INSULIN SQ SCH ×2 (08:26→21:19)
[2018-01-25] MEDS: DOCUSATE NA 100 MG CAP PO SCH ×3 (09:00→20:12)
[2018-01-25] MEDS: DOCOSAHEXANOIC AC/EPA 1000 MG PO SCH ×2 (09:00→09:08)
[2018-01-25] MEDS ORDERED: NEPRO 1,000 ML BOT FT SCH (09:00)
[2018-01-25] MEDS: SITAGLIPTIN PHOS 100 MG TAB PO SCH (09:08)
[2018-01-25] MEDS: POLYETHYL GLY 3350 17 GM/DOSE PO PRN (09:08)
[2018-01-25] MEDS: FLUDROCORTISONE 0.1 MG TAB PO SCH (09:08)
[2018-01-25] MEDS: PANTOPRAZOLE 40MG TABLET PO SCH (09:09)
[2018-01-25] MEDS: FAMOTIDINE 20 MG/2 ML VIAL IV SCH ×2 (09:09→20:11)
[2018-01-25] MEDS: LACTOBACILLUS/ACIDOPHILUS TAB PO SCH ×2 (09:09→20:12)
[2018-01-25] MEDS: DOXYCYCLINE 100 MG in NA CHLORIDE 0.9% 100 ML IVPB SCH ×2 (09:10→20:13)
[2018-01-25] MEDS: ALBUTEROL 2.5 MG/3 ML NEB SOL IH SCH ×3 (09:45→19:31)
--- NOTE | 2018-01-25 09:47 | P.CNS ---
Date of Consult: 01/25/18 Chief Complaint: Respiratory failure History of Present Illness: Patient is 82 years of age he had a right hip fracture repaired for respiratory distress was transferred from the floor intubated currently he is hemodynamically stable patient is not on any vasopressors oxygenation satisfactory history of sleep apnea diastolic dysfunction Allergies No Known Allergies Allergy (Verified 01/19/18 04:44) Home Medications: Amiodarone HCl [Pacerone] 1 tab PO DAILY 01/19/18 Atorvastatin Calcium 1 tab PO BEDTIME 01/19/18 Carvedilol 1 tab PO BID 01/19/18 Docosahexanoic AC/Epa [Fish Oil 1,000 MG*] 1 cap PO DAILY 01/19/18 Furosemide 1 tab PO DAILY 01/19/18 Gabapentin [Neurontin*] 1 cap PO BEDTIME 01/19/18 Insulin Aspart [Novolog Flexpen] See Protocol SQ AC 01/19/18 Insulin Glargine,Hum.rec.anlog [Lantus Solostar] 50 unit SQ BID 01/19/18 Lactobacillus Rhamnosus R0011 [Probiotic Digestive Care] 1 cap PO BID 01/19/18 Linaclotide [Linzess] 1 cap PO DAILY 01/19/18 Om3/Dha/Epa/Cod Liver Oil/A/D3 [Cod Liver Oil Softgel] 1 cap PO DAILY 01/19/18 Omeprazole 1 cap PO DAILY 01/19/18 Sitagliptin Phosphate [Januvia] 1 tab PO DAILY 01/19/18 Sodium Chloride [Sade-128] 1 drop LEFT EYE Q4HP PRN 01/19/18 Telmisartan/Hydrochlorothiazid [Micardis Hct 80-12.5 mg Tablet] 1 tab PO DAILY 01/19/18 - Past Medical/Surgical History Diabetic: Yes -: HTN -: high cholesterol -: copd -: asbestosis -: SA foot w/ cellulitis -: PE -: Obstructive sleep apnea -: Atrial flutter -: Rosalino wrist sx (fell off [place] and broke both wrist) -: cataract Sx - Family History Mother Notes: denies having family history of illness Father Notes: denies having family history of illness Sister Notes: denies having family history of illness Brother Notes: denies having family history of illness - Social History Smoking Status: Unknown if ever smoked Alcohol use: No CD- Drugs: No Caffeine use: Yes Place of Residence: Home Review of Systems is unable to be obtained Physical Examination Temp Pulse Resp BP Pulse Ox 97.5 F 52 14 127/61 96 01/25/18 04:00 01/25/18 08:00 01/25/18 08:00 01/25/18 08:00 01/25/18 08:00 General: Unresponsive HEENT: Atraumatic Neck: Supple Respiratory: Clear to auscultation bilaterally, Diminished Cardiovascular: No edema, Normal S1 S2 Gastrointestinal: Normal bowel sounds, No ascites Musculoskeletal: No swelling - Problems (1) Respiratory failure Current Visit: Yes Status: Acute Plan: Patient is 82 years of age was admitted for right hip fracture that was repaired developed respiratory distress the ventilator patient has hypoxemia with mild hypercapnia history of COPD chest x-ray shows some interstitial changes worse on the left side mild renal insufficiency echocardiogram shows left ventricular hypertrophy I suggest adding some bronchodilators changeover operator to SIMV pressure support hospitalist review doxycycline
[2018-01-25] MEDS: LORazepam 2 MG/ML VIAL IV PRN ×3 (09:54→22:16)
--- NOTE | 2018-01-25 10:02 | RAD REPORT ---
EXAM DESCRIPTION: [place] Single View01/25/2018 6:05 am CLINICAL HISTORY: sob COMPARISON: January 24 FINDINGS: Endotracheal and nasogastric tubes remain in place. Small pleural effusions are suspected. The heart remains enlarged. Mild bilateral lung opacities pers ist
[2018-01-25] MEDS ORDERED: VITAL HP 1,000 ML BOT RTH SCH (13:00)
--- NOTE | 2018-01-25 13:08 | PN ---
Date of Progress Note: 01/25/2018 Subjective: The patient seen and examined. Chart reviewed and case discussed with RN. The patient not able to be weaned yesterday. Still on the ventilator. Awake and alert. Does not complain of an y pain. Review of Systems: Negative except as above. Medications: Reviewed. Physical Examination: Vital Signs: Temperature 97.5, heart rate 53, blood pressure 120/56, respirations 16, O2 94%, on ET tube, mechanical ventilation. General: Awake, alert, not in any acute distress, morbidly obese male, elderly, BMI 43.9. CV: S1, S2. Peripheral pulses present. Respiratory: Diminished breath sounds at the bases. No wheezing. Gastrointestinal: Abdomen is soft, nontender, nondistended. Positive bowel sounds. Extremities: No clubbing, cyanosis, or edema. No calf tenderness. Neuro: The patient opens eyes spontaneously. Moves all 4 extremities. Follows commands. Musculoskeletal: Right hip incision site clean, dry, and intact. Laboratory Data: Sodium 137, potassium 4.1, chloride 100, CO2 30, BUN 65, creatinine 2.02, glucose 1 41, calcium 8.3, phosphorus 4.4, magnesium 2.6, albumin 2.5. ABG; pH 7.4, pCO2 47.4, PO2 61, bicarb 28. WBC 7.2, H and H 8.5, 26.2, platelets 200. Assessment And Plan: An 82-year-old male with: 1.Acute respiratory failure, currently intubated, not sedated. We will continue weaning trial. 2.Right femoral fracture status post open reduction and internal fixation, doing well. He will cont inue Lovenox for deep venous thrombosis prophylaxis. 3.Status post mechanical fall. Continue PT. 4.Acute on chronic kidney injury. Creatinine is improving slightly. We will continue to monitor. Nephrology on board. 5.Acute blood loss anemia, likely post procedure, has improved. Did not require any blood transfusi on. 6.Diabetes mellitus type 2, insulin requiring with hyperglycemia and chronic kidney dysfunction. We will continue sliding scale. 7.Essential hypertension, stable. 8.Hyperlipidemia. Continue statin. 9.Chronic obstructive pulmonary disease, on nebulizers. 10.Obstructive sleep apnea. Patient noncompliant with CPAP. 11.History of atrial flutter, controlled ventricular rate. Not on anticoagulation due to history of GI bleed. 12.Hypertensive heart disease. 13.Gastrointestinal and deep venous thrombosis prophylaxis, PPI and Lovenox. Plan: Continue weaning off vent. Pulmonology on board. He has been referred to LTAC. Transfer was accepted and can be weaned off vent at the LTAC. We will start tube feeds. /SUSHANT Voice ID: [id number] Report ID: [id number]
[2018-01-25] MEDS ORDERED: FLEET ENEMA ADULT PR ONE (14:26)
[2018-01-25] MEDS: GABAPENTIN 300 MG CAP PO SCH (20:12)
[2018-01-25] MEDS: ATORVASTATIN 40 MG TAB PO SCH (20:12)
[2018-01-25] MEDS ORDERED: FUROSEMIDE 20 MG/ 2ML VIAL IV ONE (22:44)
[2018-01-25] MEDS ORDERED: VASOPRESSIN 20 UNIT/ML VIAL ONE (22:54)
--- NOTE | 2018-01-26 01:00 | PN ---
Date of Progress Note: 01/25/2018 Subjective: The patient still on vent, awake. The patient status post Lasix yesterday. Physical Examination: Vital Signs: Blood pressure 148/58, pulse of 62. Chest: Clear to auscultation. Heart: S1, S2. Regular. Abdomen: Soft, nontender. Extremities: Trace edema. Laboratory Data: WBC 7.2, H and H 8.5/26.2, platelet of 200. Sodium 137, potassium 4.1, bicarb 30. BUN 66, creatinine of 2. GFR of 32, calcium 8.3, phosphorus 4.4. Magnesium of 2.6. The patient ballard d urine output of 2600. The patient was negative of 1200. Current Medications: The patient on includes; 1.Doxycycline. 2.Albuterol. 3.Tylenol. 4.Haloperidol. 5.Lasix 40 was given yesterday. 6.Pepcid. 7.Lactulose. 8.Januvia. 9.Insulin. 10.Docusate. 11.Hydrocodone. 12.Fentanyl. Assessment And Plan: 1.Acute kidney injury secondary to cardiorenal, recovered, trending down to his baseline. looks to me euvolemic currently. I am going to continue current management. I going to give the patient extr a dose of Lasix to assist in the respiratory status and we will follow up. 2.Hypertension, controlled. 3.Fever. The patient was started on doxycycline. 4.Hypercapnic respiratory failure, on ventilator. Will follow up with Pulmonary. SISSY/SUSHANT Voice ID: [id number] Report ID: [id number]
[2018-01-26] MEDS: ALBUTEROL 2.5 MG/3 ML NEB SOL IH SCH ×4 (01:17→20:00)
[2018-01-26] MEDS: FENTANYL CITR 100 MCG/2 ML IV PRN (02:43)
[2018-01-26 05:38] LABS: Arterial Blood Carboxyhemoglob 2.2 % (0-1.5); Blood Gas Oxyhemoglobin 90.4 % (94-97)
[2018-01-26] MEDS: ENOXAPARIN 30 MG/0.3 ML SQ SCH ×2 (05:44→18:05)
[2018-01-26 05:58] LABS: Absolute Lymphocytes (CBC) 0.9 K/uL (0.7-4.9); Absolute Monocytes 0.7 K/uL (0.1-1.3); Absolute Neutrophil 5.7 K/uL (1.8-8.0); Basophils % 0.7 % (0-1.3); Eosinophils % 6.1 % (0-4.4); Hematocrit 27.3 % (39.6-49.0); Lymphocytes % 11.4 % (15.3-44.8); MCH 30.1 pg (27.0-35.0); MCV 89.5 fL (80-100); MPV 7.9 fL (7.6-11.3); Monocytes % 8.6 % (3.3-12.3); RBC Red Blood Cell Count 3.05 M/uL (4.33-5.43)
[2018-01-26] MEDS: INSULIN -REGULAR HUMAN 50 UNIT/0.5 ML ML SQ SCH ×5 (06:00→20:44)
[2018-01-26 06:10] LABS: Albumin 2.5 g/dL (3.2-5.5); Magnesium 2.3 mg/dL (1.8-2.5); Phosphorus 3.8 mg/dL (2.5-4.3); Potassium 3.8 mEq/L (3.6-5.0)
[2018-01-26] MEDS: HOME MED 1 EA UNK (Linaclotide [Linzess] 1 CAP) PO SCH (08:33)
[2018-01-26] MEDS: FAMOTIDINE 20 MG/2 ML VIAL IV SCH ×2 (08:42→20:43)
[2018-01-26] MEDS: INSULIN DETEMIR 100 UNIT/1 ML INSULIN SQ SCH ×2 (08:42→20:44)
[2018-01-26] MEDS: DOXYCYCLINE 100 MG in NA CHLORIDE 0.9% 100 ML IVPB SCH ×2 (08:43→20:57)
[2018-01-26] MEDS: PANTOPRAZOLE 40MG TABLET PO SCH (08:44)
[2018-01-26] MEDS: DOCOSAHEXANOIC AC/EPA 1000 MG PO SCH (08:44)
[2018-01-26] MEDS: LACTOBACILLUS/ACIDOPHILUS TAB PO SCH ×2 (09:00→20:43)
[2018-01-26] MEDS: FLUDROCORTISONE 0.1 MG TAB PO SCH (09:00)
[2018-01-26] MEDS: DOCUSATE NA 100 MG CAP PO SCH ×2 (09:00→20:43)
[2018-01-26] MEDS ORDERED: KCL 20 MEQ/100 mL IVPB 20 MEQ/100 ML BAG IV SCH (09:00)
[2018-01-26] MEDS: SITAGLIPTIN PHOS 100 MG TAB PO SCH (10:56)
[2018-01-26] MEDS ORDERED: POTASSIUM 25 MEQ EFFERV TAB PO ONE (11:00)
--- NOTE | 2018-01-26 11:45 | RAD REPORT ---
EXAM DESCRIPTION: CT - Abdomen Pelvis Wo Contrast - 01/26/2018 9:33 am CLINICAL HISTORY: Abdominal pain. Shortness of breath. COMPARISON: None TECHNIQUE: CT imaging of the abdomen and pelvis was performed without contrast. Solid organ, bowel a nd vascular assessment is limited due to lack of IV and oral contrast. All CT scans are performed using dose optimization technique as appropriate and may include automated exposure control or mA/KV adjustment according to patient size. FINDINGS: Small bilateral pleural effusions are present, slightly greater on the left, with subsegme ntal atelectasis in both lung bases. The liver, spleen, pancreas, adrenal glands and kidneys are within normal limits for a limited non-co ntrast examination.9 mm benign hepatic cyst suspected. Cholelithiasis is present. No bowel obstruction, free air, free fluid or abscess. Mild fat stranding is seen in the pelvis. A Fo lizzie catheter is present decompressing the urinary bladder. The appendix is normal. Mild aortic athero sclerosis. Hardware is present in the proximal right femur. IMPRESSION: Small bilateral pleural effusions with atelectasis in both lung bases. Cholelithiasis. A limited non-contrast examination was performed as detailed.
--- NOTE | 2018-01-26 12:16 | RAD REPORT ---
EXAM DESCRIPTION: RAD - Chest Single View - 01/26/2018 6:41 am CLINICAL HISTORY: Shortness of breath COMPARISON: 01/25/2018 FINDINGS: Portable technique limits examination quality. The lungs are underinflated resulting in vascular crowding. Small pleural effusions noted. The heart is mildly prominent size. No displaced fractures. IMPRESSION: Small pleural effusions suspected.
--- NOTE | 2018-01-26 12:46 | PN ---
Date of Progress Note: 01/26/2018 History: The patient was seen and examined. Chart reviewed and case discussed with RN. The patient self-extubated early this morning. Doing well on 3 L of oxygen. Still having some abdominal disten tion. Pain is tolerable. Review of Systems: Negative except as above. Medications: Reviewed. Physical Examination: Vital Signs: Temperature 97.4, heart rate 60, blood pressure 163/67, respirations 19, O2 100% on 2 L via nasal cannula. General: Awake, alert, oriented x3, in some mild distress. Elderly male, morbidly obese, somewhat i ll-appearing. BMI 42. CV: S1 and S2. Regular rate and rhythm. Peripheral pulses present. Respiratory: Moving air well bilaterally. Some diminished breath sounds at the bases. Gastrointest inal: Abdomen soft, distended, nontender. Mild incisional tenderness. Bowel sounds positive. No g uarding or rigidity. Extremities: No clubbing, cyanosis, edema. Neurologic: Nonfocal. Musculoskeletal: Right hip incision site clean, dry, intact. Laboratory Data: Sodium 140, potassium 3.8, chloride 101, CO2 32, BUN 53, creatinine 1.48, glucose 1 49, calcium 8.6, phosphorus 3.8, magnesium 2.3, albumin 2.5. ABG; pH 7.3, pCO2 47.1, PO2 68, bicarb 30.7. WBC 7.8, H and H 9.2, 27.3, platelets 231. Assessment And Plan: An 82-year-old male with: 1.Acute respiratory failure, now self-extubated, doing well on 3 L of nasal cannula, which is his ba seline for chronic obstructive pulmonary disease. 2.Right femoral fracture status post open reduction and internal fixation, doing well. We will cont inue Lovenox for DVT prophylaxis. 3.Status post mechanical fall. Continue physical therapy. 4.Acute on chronic kidney injury. Creatinine improving. We will continue to monitor. Nephrology o n board. 5.Acute blood loss anemia, likely post procedure. Continue to monitor H and H. currently stable. 6.Diabetes mellitus type 2, insulin requiring with hyperglycemia. Chronic kidney dysfunction. Cont inue sliding scale insulin. 7.Essential hypertension, stable. 8.Hyperlipidemia. 9.Continue statin. 10.Chronic obstructive pulmonary disease, chronic bronchitis. We will continue nebulizer treatments . 11.Obstructive sleep apnea. The patient is noncompliant with CPAP. He understands that he has to b e on the CPAP at night. 12.Atrial flutter, controlled ventricular rate. Currently in sinus rhythm. Paroxysmal. No anticoa gulation due to gastrointestinal bleed. 13.Hypertensive heart disease. 14.Gastrointestinal and deep venous thrombosis prophylaxis with PPI and Lovenox. Plan: The patient is going for cardiac catheterization tomorrow or Saturday. Transferred to LTAC pos t catheterization. QUINN Voice ID: [id number] Report ID: [id number]
--- NOTE | 2018-01-26 12:49 | PN ---
Mr. Soto has not had any other pauses, as long as he is ventilated and keeps normal pH and pCO2, h e does well. I am not sure with the electrophysiologic approach to this would be, but I will discuss it with Dr. Agarwal, and see what he thinks, but I doubt if a pacemaker is indicated. The lowest hea rt rate we have seen is 51 beats per minute. ANDREAS/SUSHANT Voice ID: [id number] Report ID: [id number]
[2018-01-26] MEDS: ATORVASTATIN 40 MG TAB PO SCH (20:43)
[2018-01-26] MEDS: HYDROCODONE/APAP 7.5/325 MG TAB PO PRN (20:43)
[2018-01-26] MEDS: GABAPENTIN 300 MG CAP PO SCH (20:43)
--- NOTE | 2018-01-26 21:37 | PN ---
Date of Progress Note: 01/26/2018 Chief Complaint: Acute on chronic kidney injury. History Of Present Illness: Acute kidney injury, moderately severe, nonoliguric , associated with cardiorenal syndrome. Renal function somewhat improved over the last 24 hours. Yesterday, BUN was 66, creatinine 2.0. The patient although remains in ICU, he had fever and was started on doxycycline. The patient has hypercapnic respiratory failure and he is extubated, remains on BiPAP. Review of Systems: Unobtainable. The patient cannot provide review of systems. He is on BiPAP. Physical Examination: Lungs: Few crackles at bases. Heart: S1, S2. Abdomen: Soft, benign. Extremities: Edema present in both legs. Laboratory Data: Hemoglobin 9.2, WBC 7.8, platelet count 231,000. Chemistries showed sodium 140, potassium 3.8, chloride 101, CO2 of 32. BUN 53, creatinine 1.48, glucose 149, magnesium 2.3, phosphorus 3.8, calcium 8.6. Impression And Plan: 1. Acute kidney injury, nonoliguric, somewhat improving. The patient developed severe prerenal azotemia and nonoliguric acute tubular necrosis and had some episodes of bladder outlet obstruction. He remains fluid overloaded. Continue Lasix for volume control and to help to control volemia for management of congestive heart failure and respiratory failure. 2. Fever. Continue antibiotics. Monitor blood culture and urine culture. 3. Hypertension, controlled. 4. Respiratory failure, deconditioning, hypercapnia. The patient remains on BiPAP. 5. Diabetes mellitus with renal manifestation. Continue insulin. I spent total 36 min including 26 min to coordinate care plan. MARION/SUSHANT Voice ID: [id number] Report ID: [id number] [email or web address]
[2018-01-26] MEDS: TRAZODONE 50 MG TABLET PO PRN (22:39)
[2018-01-27] MEDS: ALBUTEROL 2.5 MG/3 ML NEB SOL IH SCH ×4 (01:35→19:17)
[2018-01-27] MEDS: HYDROCODONE/APAP 7.5/325 MG TAB PO PRN ×2 (04:42→20:44)
[2018-01-27] MEDS: ENOXAPARIN 30 MG/0.3 ML SQ SCH ×2 (05:38→17:06)
[2018-01-27 05:45] LABS: Magnesium 2.2 mg/dL (1.8-2.5); Phosphorus 3.9 mg/dL (2.5-4.3); Potassium 4.2 mEq/L (3.6-5.0)
[2018-01-27] MEDS: INSULIN -REGULAR HUMAN 50 UNIT/0.5 ML ML SQ SCH ×4 (07:30→20:46)
--- NOTE | 2018-01-27 08:27 | P.PN ---
Subjective Date of Service: 01/27/18 Chief Complaint: Respiratory failure Subjective: Improving (Patient self-extubated currently doing well using BiPAP at night history of sleep apnea compliant with CPAP at home no other complaints is very alert responsive cooperative) Review of Systems Unremarkable Physical Examination - Vital Signs Temperature: 97.8 F Blood Pressure: 136/45 Pulse: 60 Respirations: 17 Pulse Ox (%): 95 - Physical Exam General: Alert, Oriented x3 Neck: Supple Respiratory: Clear to auscultation bilaterally, Diminished Cardiovascular: No edema, Normal S1 S2 Assessment & Plan - Problems (Diagnosis) (1) Respiratory failure Current Visit: Yes Status: Acute Plan: Patient was recently intubated he self-extubated and due to respiratory distress is currently doing well he is alert responsive cooperative no prior history of COPD has sleep apnea as compliant with his CPAP patient's Pickett can be Dc transfer to the floor not sure why is on IV doxycycline
[2018-01-27] MEDS: LACTOBACILLUS/ACIDOPHILUS TAB PO SCH ×2 (08:53→20:44)
[2018-01-27] MEDS: DOCUSATE NA 100 MG CAP PO SCH ×2 (08:53→20:44)
[2018-01-27] MEDS: SITAGLIPTIN PHOS 100 MG TAB PO SCH (08:53)
[2018-01-27] MEDS: PANTOPRAZOLE 40MG TABLET PO SCH (08:53)
[2018-01-27] MEDS: HOME MED 1 EA UNK (Linaclotide [Linzess] 1 CAP) PO SCH (08:54)
[2018-01-27] MEDS: DOCOSAHEXANOIC AC/EPA 1000 MG PO SCH (08:54)
[2018-01-27] MEDS: FLUDROCORTISONE 0.1 MG TAB PO SCH (08:54)
[2018-01-27] MEDS: INSULIN DETEMIR 100 UNIT/1 ML INSULIN SQ SCH ×2 (08:54→20:45)
--- NOTE | 2018-01-27 17:18 | P.PN ---
Date of Service: 01/27/18 Subjective: The patient was seen and examined. Chart reviewed and case discussed with RN. Pt now extubated and on NC doing well overall. Family would like to Hold cardiac Cath until they speak with Dr Gagnon. No new changes overnight. Review of Systems: Negative except as above. Physical Examination: Vital Signs: Temp Pulse Resp BP Pulse Ox 97.8 F 69 19 169/58 H 92 01/27/18 08:27 01/27/18 15:00 01/27/18 15:00 01/27/18 15:00 01/27/18 15:00 General: Awake, alert, oriented x3, in some mild distress. Elderly male, morbidly obese, somewhat ill-appearing. BMI 42. CV: S1 and S2. Regular rate and rhythm. Peripheral pulses present. Respiratory: Moving air well bilaterally. Some diminished breath sounds at the bases. Gastrointestinal: Abdomen soft, distended, nontender. Mild incisional tenderness. Bowel sounds positive. No guarding or rigidity. Extremities: No clubbing, cyanosis, edema. Neurologic: Nonfocal. Musculoskeletal: Right hip incision site clean, dry, intact. Laboratory Data: Reviewed Assessment And Plan: An 82-year-old male with: 1. Acute respiratory failure most likely 2.2 to RAHEL with non-compliance with CPAP - Now self-extubated, doing well on 2 L of nasal cannula, which is his baseline for chronic obstructive pulmonary disease. - Pulmonology Consulted. Reccs appreciated - Continue octavio szymanski 2. Right femoral fracture - Status post open reduction and internal fixation - We will continue Lovenox for DVT prophylaxis. 3. Status post mechanical fall - Continue physical therapy. 4. Acute on chronic kidney injury. - Creatinine improving. We will continue to monitor. - Nephrology Consulted. Reccs Appreciated 5. Acute blood loss anemia, likely post procedure. - Continue to monitor H and H. currently stable. 6. Diabetes mellitus type 2, insulin requiring with hyperglycemia. Chronic kidney dysfunction. Continue sliding scale insulin. 7. Essential hypertension, stable. 8. Hyperlipidemia - Continue statin. 9. Chronic obstructive pulmonary disease, chronic bronchitis. 10. Obstructive sleep apnea. - The patient is noncompliant with CPAP. He understands that he has to be on the CPAP at night. 11. Atrial flutter, controlled ventricular rate. - Currently in sinus rhythm. Paroxysmal. No anticoagulation due to gastrointestinal bleed. 12. Hypertensive heart disease. 13. Gastrointestinal and deep venous thrombosis prophylaxis with PPI and Lovenox. Plan: Lexiscan scheduled for rona per Cardiology. LTAC placement Pending
[2018-01-27] MEDS: ATORVASTATIN 40 MG TAB PO SCH (20:44)
[2018-01-27] MEDS: GABAPENTIN 300 MG CAP PO SCH (20:44)
[2018-01-27] MEDS: TRAZODONE 50 MG TABLET PO PRN (20:51)
--- NOTE | 2018-01-27 23:14 | PN ---
Date of Progress Note: 01/27/2018 Chief Complaint: Acute kidney injury. Subjective: Acute kidney injury, nonoliguric associated with renal hypoperfusion. Renal function has improved over the last 48 hours. The patient has nonoliguric urine output. The patient has a Pickett catheter. Plan is to remove Pickett catheter and check bladder scan. The patient remains in ICU. He was treated with BiPAP. Currently he is on O2 nasal cannula. Review of Systems: Denies complaints. Denies fever, chills. Objective: Lungs: Diminished breath sounds at bases. Heart: S1, S2. Abdomen: Obese, soft. Extremities: Slight edema. Vital Signs: Blood pressure 150/79, heart rate 79. Impression And Plan: 1. Acute kidney injury. Renal function is improving. Monitor electrolytes daily and adjust IV fluids as needed. 2. Respiratory failure, hypoxemia. Continue BiPAP as needed. 3. Continue antibiotics with renally adjusted dose. 4. Chronic kidney disease, stage 3. Monitor electrolytes. Avoid nonsteroidal anti-inflammatory medication. MARION/SUSHANT Voice ID: [id number] Report ID: [id number] [email or web address]
[2018-01-28] MEDS: ALBUTEROL 2.5 MG/3 ML NEB SOL IH SCH ×3 (01:48→13:44)
[2018-01-28] MEDS: ENOXAPARIN 30 MG/0.3 ML SQ SCH (05:06)
[2018-01-28 05:28] LABS: Magnesium 2.2 mg/dL (1.8-2.5); Phosphorus 4.1 mg/dL (2.5-4.3); Potassium 4.4 mEq/L (3.6-5.0)
[2018-01-28 05:37] VITALS: BMI 42.5
[2018-01-28 05:51] VITALS: TEMP 97.7
[2018-01-28] MEDS: INSULIN -REGULAR HUMAN 50 UNIT/0.5 ML ML SQ SCH ×2 (07:30→11:13)
[2018-01-28] MEDS ORDERED: REGADENOSON 0.4 MG/5 ML SYR IV ONE (08:38)
[2018-01-28] MEDS: HOME MED 1 EA UNK (Linaclotide [Linzess] 1 CAP) PO SCH (09:00)
[2018-01-28] MEDS: HYDROCODONE/APAP 7.5/325 MG TAB PO PRN (09:46)
[2018-01-28] MEDS: LACTOBACILLUS/ACIDOPHILUS TAB PO SCH (09:47)
[2018-01-28] MEDS: PANTOPRAZOLE 40MG TABLET PO SCH (09:47)
[2018-01-28] MEDS: DOCUSATE NA 100 MG CAP PO SCH (09:47)
[2018-01-28] MEDS: INSULIN DETEMIR 100 UNIT/1 ML INSULIN SQ SCH (09:48)
[2018-01-28] MEDS: SITAGLIPTIN PHOS 100 MG TAB PO SCH (09:48)
[2018-01-28] MEDS: DOCOSAHEXANOIC AC/EPA 1000 MG PO SCH (09:48)
[2018-01-28] MEDS: FLUDROCORTISONE 0.1 MG TAB PO SCH (09:49)
[2018-01-28 11:35] VITALS: O2SAT 95
--- NOTE | 2018-01-28 13:31 | TREADPHA ---
DX: JUNCTIONAL RHYTHM Date of Study: 01/28/2018 Ht: 5 7 Wt: 271 lb 6.4 oz Consulting Physician: ALLYSSA MEDICATIONS: TYLENOL, NORCO, PROVENTIL, LIPITOR, DEXTROSE, COLACE, LOVENOX, FISH OIL, NEURONTIN, GLUCAGEN, LEVEMIR, NOVOLIN-R HISTORY: 82 YEAR OLD WITH JUNCTIONAL RHYTHM. MEDICAL HISTORY OF RENAL FAILURE, DIABETES MELLITUS, HYPERTENSION AND DYSLIPIDEMIA. PHYSICIAL EXAMINATION: RESTING B.P.: 150/59 RESTING H.R.: 62 RESTING EKG: NORMAL SINUS RHYTHM, NORMAL ST PROTOCOL: LEXISCAN EXERCISE TIME: 3:30 B.P. AT PEAK STRESS: 116/51 IMPRESSION: LEXISCAN INJECTED. CARDIOLITE INJECTED PER PROTOCOL. SEE NUCLEAR MEDICINE REPORT. NO SUPRAVENTRICULAR TACHYCARDIA. NO VENTRICULAR TACHYCARDIA. NO PREMATURE VENTRICULAR COMPLEXES. NO CHEST PAIN.
--- NOTE | 2018-01-28 13:48 | RAD REPORT ---
EXAM DESCRIPTION: NM - Rest Stress Cardiac Imaging - 01/28/2018 1:08 pm CLINICAL HISTORY: Chest pain. COMPARISON: 2007 TECHNIQUE: The patient was administered approximately 10mCi of Tc 99m Sestamibi prior to resting SPE CT imaging of the heart. The patient was then administered approximately 30 mCi of Tc 99m Sestamibi f ollowing exercise or pharmacologic stress. Multiplanar SPECT images were reviewed. FINDINGS: Large area of diminished radiotracer activity involves the inferior apical left ventricula r myocardium on rest and stress images. The septum is also involved. The left ventricular ejection fraction equals 40% IMPRESSION: Large fixed perfusion defect involving the inferior apical left ventricular myocardium extending into the septum. This is compatible with an infarct. No evidence of stress-induced ischemia
[2018-01-28 15:10] VITALS: BP 139/54
--- NOTE | 2018-01-28 17:58 | P.DS ---
Admission Date: 01/19/18 Discharge Date: 01/28/18 [facility] Reason for Admission: Respiratory failure Consultations: Pulmonology Ortho Cardiology Procedures: ORIF on the right Hip Lexican Scan - Negative Brief History of Present Illness: See HPI Hospital Course: Overall during the hospital stay patient remained stable. Patient was initially admitted to the hospital status post mechanical fall and had sustained right femoral neck fracture. Orthopedic surgeon was consulted and patient had open reduction and internal fixation of his right hip. Patient tolerated the procedure well and did well overall postprocedure is well. Lovenox was started for DVT ppx. Pt was working with PT and was awaiting placement. However Day 2 of hospitalization patient started having some respiratory distress secondary to his obstructive sleep apnea and his noncompliance with the CPAP machine and oxygen on the floor. Patient was then intubated due to acute respiratory failure and was transferred to the ICU. Pulmonology was consulted who recommended patient be placed on vent protocol along with DuoNeb since steroids. On day 4 patient self extubated himself and was protecting his airway well without having any acute respiratory distress. Patient remained on 2 L of nasal cannula here in the hospital and had CPAP while asleep. Patient was also found to have acute blood loss anemia most likely secondary to his or procedure. Patient did not require any transfusion and his H&H remained stable postprocedure. While here in the hospital patient was also found to have atrial from flatter along with heart arrhythmias. Cardiology was consulted who recommended patient get a stress test done here in the hospital. Stress test was done here in the hospital which was negative for any acute stress induced ischemia however there was a large defect in the septal area which was chronic. Patient was doing well overall once all his acute needs were met here in the hospital. Patient however was still not able to be discharged home due to chronic debility along with recent acute worsening of his conditions. This patient was referred over to a long-term acute care facility for further care and was transferred to [facility]. Vital Signs/Physical Exam: Temp Pulse Resp BP Pulse Ox 97.7 F 65 19 139/54 L 94 01/28/18 04:00 01/28/18 15:00 01/28/18 15:00 01/28/18 15:00 01/28/18 15:00 General: Alert, In no apparent distress HEENT: Atraumatic, PERRLA, EOMI Neck: Supple, JVD not distended Respiratory: Clear to auscultation bilaterally, Normal air movement Cardiovascular: Regular rate/rhythm, Normal S1 S2 Gastrointestinal: Normal bowel sounds, No tenderness Musculoskeletal: No tenderness Integumentary: No rashes Neurological: Normal speech, Normal tone, Normal affect Lymphatics: No axilla or inguinal lymphadenopathy Laboratory Data at Discharge: WBC 7.8 K/uL (4.3-10.9) 01/26/18 05:01 Hgb 9.2 g/dL (13.6-17.9) L 01/26/18 05:01 Hct 27.3 % (39.6-49.0) L 01/26/18 05:01 Plt Count 231 K/uL (152-406) 01/26/18 05:01 PT 13.8 SECONDS (9.5-12.5) H 01/23/18 22:58 INR 1.17 01/23/18 22:58 APTT 28.0 SECONDS (24.3-36.9) 01/23/18 22:58 Sodium 138 mEq/L (135-145) 01/28/18 04:45 Potassium 4.4 mEq/L (3.6-5.0) 01/28/18 04:45 BUN 31 mg/dL (6-20) H 01/28/18 04:45 Creatinine 1.25 mg/dL (0.61-1.24) H 01/28/18 04:45 Glucose 85 mg/dL (65-120) 01/28/18 04:45 Phosphorus 4.1 mg/dL (2.5-4.3) 01/28/18 04:45 Magnesium 2.2 mg/dL (1.8-2.5) 01/28/18 04:45 Total Bilirubin 0.8 mg/dL (0.3-1.2) 01/24/18 12:01 AST 35 IU/L (10-42) 01/24/18 12:01 ALT 27 IU/L (10-60) 01/24/18 12:01 Alkaline Phosphatase 97 IU/L (42-121) 01/24/18 12:01 Troponin I 2.46 ng/mL (<0.03) H* 01/23/18 22:58 Home Medications: Amiodarone HCl [Pacerone] 1 tab PO DAILY 01/19/18 Atorvastatin Calcium 1 tab PO BEDTIME 01/19/18 Carvedilol 1 tab PO BID 01/19/18 Docosahexanoic AC/Epa [Fish Oil 1,000 MG*] 1 cap PO DAILY 01/19/18 Furosemide 1 tab PO DAILY 01/19/18 Gabapentin [Neurontin*] 1 cap PO BEDTIME 01/19/18 Insulin Aspart [Novolog Flexpen] See Protocol SQ AC 01/19/18 Insulin Glargine,Hum.rec.anlog [Lantus Solostar] 50 unit SQ BID 01/19/18 Lactobacillus Rhamnosus R0011 [Probiotic Digestive Care] 1 cap PO BID 01/19/18 Linaclotide [Linzess] 1 cap PO DAILY 01/19/18 Om3/Dha/Epa/Cod Liver Oil/A/D3 [Cod Liver Oil Softgel] 1 cap PO DAILY 01/19/18 Omeprazole 1 cap PO DAILY 01/19/18 Sitagliptin Phosphate [Januvia] 1 tab PO DAILY 01/19/18 Sodium Chloride [Sade-128] 1 drop LEFT EYE Q4HP PRN 01/19/18 Telmisartan/Hydrochlorothiazid [Micardis Hct 80-12.5 mg Tablet] 1 tab PO DAILY 01/19/18
--- NOTE | 2018-01-29 03:22 | PN ---
Date of Progress Note: 01/28/2018 Subjective: The patient is status post breathless today, feeling better. Physical Examination: Vital Signs: Blood pressure 139/54, pulse of 65. Chest: Crackles in the base. Heart: S1, S2. Regular. Abdomen: Soft, nontender. Extremities: Trace edema. Laboratory Data: WBC 7.8, H and H 9.2/27.3. Platelets 231. Sodium 138, potassium 4.4, bicarb 32. BUN 53, creatinine 1.2. Calcium 8.7, phosphorus 4.1, magnesium 2.2. Current Medications: The patient on include; 1.Albuterol. 2.Atorvastatin. 3.Lovenox. 4.Fish oil. 5.Gabapentin. 6.Insulin. 7.Zofran. 8.Januvia. 9.Trazodone. Assessment And Plan: 1.Acute kidney injury secondary to cardiorenal, resolved. Still on the wet side. We will continue p.r.n. Lasix. 2.Hypertension, controlled, optimal. Continue current medication. 3.Chronic obstructive pulmonary disease with obstructive sleep apnea. Continue followup with [facility]. 4.Hypercapnic respiratory failure. Continue CPAP. 5.Coronary artery disease, congestive heart failure, as by Cardiology. SISSY/SUSHANT Voice ID: [id number] Report ID: [id number]
--- NOTE | 2018-01-29 11:28 | PN ---
Subjective: Mr. Soto has been followed by me and Dr. Humphries intermittently for his diastolic dysf unction, renal failure. There were some issues regarding a possibility of a heart catheterization. He had an echocardiogram showing some diastolic dysfunction, but normal ejection fraction has improve d. From renal standpoint, we decided the Lexiscan would be safer than a catheterization at this poin t. A Lexiscan was done yesterday. There were no EKG changes. Blood pressure response was normal an d there was no evidence of ischemia. The patient will be going to [facility] today and hopefully wi ll follow up with him in the near future in the office. We will continue his present regimen. SID/SUSHANT Voice ID: [id number] Report ID: [id number]
== END 2018-01-28 15:40 | DRG 480 ==
LOC: ER 00:23 → ERHOLD 03:38 → 4TH 03:59 → 3RD-ICU 14:15 → 2ND 01-20 12:30 → 3RD-ICU 01-21 11:13 → 2ND 01-22 12:20 → 3RD-ICU 01-23 22:39
PROVIDERS: ADMIT Hospitalist; ATTEND Family Medicine
PROC: 0QH636Z Insertion of Intramedullary Internal Fixation Device into Right Upper Femur, Percutaneous Approach (ICD-10-PCS; principal; 2018-01-19 12:00)
PROC: 0BH17EZ Insertion of Endotracheal Airway into Trachea, Via Natural or Artificial Opening (ICD-10-PCS; 2018-01-23)
PROC: 5A1945Z Respiratory Ventilation, 24-96 Consecutive Hours (ICD-10-PCS; 2018-01-23)
PROC: 5A09357 Assistance with Respiratory Ventilation, Less than 24 Consecutive Hours, Continuous Positive Airway Pressure (ICD-10-PCS; 2018-01-28)
DX: S72.044A Nondisplaced fracture of base of neck of right femur, initial encounter for closed fracture (principal); N17.0 Acute kidney failure with tubular necrosis; J96.01 Acute respiratory failure with hypoxia; J96.02 Acute respiratory failure with hypercapnia; Z68.41 Body mass index [BMI] 40.0-44.9, adult; D62 Acute posthemorrhagic anemia; I48.92 Unspecified atrial flutter; E87.1 Hypo-osmolality and hyponatremia; E87.2 Acidosis; E11.9 Type 2 diabetes mellitus without complications; E78.00 Pure hypercholesterolemia, unspecified; I48.91 Unspecified atrial fibrillation; E78.5 Hyperlipidemia, unspecified; I11.9 Hypertensive heart disease without heart failure; R33.9 Retention of urine, unspecified; E66.01 Morbid (severe) obesity due to excess calories; G47.33 Obstructive sleep apnea (adult) (pediatric); W05.0XXA Fall from non-moving wheelchair, initial encounter; Z91.19 Patient's noncompliance with other medical treatment and regimen
CPT/HCPCS: 36415; 71045; 72170; 72192; 73530; 74018; 74176; 78452; 80048; 80053; 80069; 80076; 81003; 81015; 82533; 82550; 82553; 82570; 82805; 82962; 83036; 83735; 84100; 84132; 84156; 84300; 84443; 84484; 85014; 85018; 85025; 85027; 85610; 85730; 86317; 86704; 86706; 87086; 87088; 87340; 87522; 93005; 93017; 93306; 94002; 94003; 94640; 94660; 94760; 96374; 97002; 97163; 99285; A9500; J0610; J0690; J1650; J1940; J2175; J2250; J2405; J2550; J2785; J3010; J7030

== ENCOUNTER 2019-09-01 08:07 | Inpatient (IN) | payer OTHER ==
--- OUTSIDE RECORDS SUMMARY | 2019-09-01 08:14 | XMS REPORT ---
:1935 Author Organization [employer] Care Team Providers Name Role Phone Gomes Michael Provider Role Unavailable Allergies, Adverse Reactions, Alerts Substance Reaction Event Type N.K.D.A. Info Not Available Non Drug Allergy Problems Problem Type Condition Code Onset Dates Condition Status Assessment Pain, joint, knee, right M25.561 Active Problem Right sided sciatica M54.31 Active Assessment Right sided sciatica M54.31 Active Medications Medication Code Code Instructions Start End Status Dosage System Date Date HydrALAZINE HCl [facility] 81337359620 10 MG Orally Apr 30, Active 1 tablet Four times a 2017 with food day Januvia ND 72083650676 50 MG Orally Active as directed NovoLog ND 30337833674 100 UNIT/ML Active as Subcutaneous directed Gabapentin [facility] 22462262148 400 MG Orally Active 1 capsule Twice a day Tramadol HCl ND 23313126760 50 MG Oral Active (Schedule IV Drug) TAKE ONE (1) TO TWO (2) TABLET(S) BY MOUTH THREE TIMES A DAY NEEDED. Coreg ND 16371997116 3.125 MG Orally Active as directed Lantus ND 11340396804 100 UNIT/ML Active as Subcutaneous directed lasix NDC 0 Oral Active 1 tab Linzess ND 99235293366 290 mcg Active not defined Levothyroxine ND 56951434382 25 MCG Oral Active (Prior Sodium Auth: Rx Ref#:[id number]) Flomax [facility] [address]-42 0.4 MG Orally Active 1 capsule Once a day 30 minutes after the same meal each day Results No Known Results Summary Purpose eClinicalWorks Submission
--- OUTSIDE RECORDS SUMMARY | 2019-09-01 08:14 | XMS REPORT ---
:1935 [facility] Address [address] [place] [address] Dr. Varela [address] [place] [id number] Care Team Providers Name Role Phone ANTHONY GR Unavailable Unavailable CLAIRE IYER Unavailable Unavailable Problems This patient has no known problems. Allergies, Adverse Reactions, Alerts This patient has no known allergies or adverse reactions. Medications This patient has no known medications. Encounters Start End Encounter Admission Attending Care Care Encounter Date/Time Date/Time Type Type Clinicians Facility Department ID 2019-06-16 2019-06-16 Outpatient C SIMÓN Gayatri RAD [id number] 15:18:00 23:59:00 ANTHONY Results Test Description Test Time Test Comments Text Results Atomic Results Result Comments NM LUNG (V/Q ) SCAN*WW* 2019-06-16 16:46:52 Radionuclide ventilation/ perfusion lung scanLocation Code: [id number]: Shortness of breathCOMPARISON: NoneCOMMENT: Routine images of the lungs were obtained after inhalation of 8.0 mCiof Xe133 gas and intravenous injection of 6.6 mCi 99 M technetium MAA.Ventilation is symmetric bilaterally with no focal defect. There is nosignificant trapping.Perfusion images demonstrate normal and symmetric perfusion with no segmentaldefect to suggest a PE.IMPRESSION: Normal VQ scan with a low probability of PE. POCT-GLUCOSE METER 2017-10-16 13:15:00 Test Item Value Reference Range Comments POC-GLUCOSE METER (ISHAAN) (test 157 mg/dL 70-[address] [facility] 7200 capj=4601) [facility] [address]
[2019-09-01] MEDS ORDERED: FUROSEMIDE 40 MG/4 ML VIAL ONE (08:54)
[2019-09-01] MEDS ORDERED: NA CHLORIDE 0.9% 500 ML ONE ×2 (08:57→10:54)
[2019-09-01 09:00] LABS: Basophils % 0.8 % (0-1.3); Hematocrit 29.5 % (39.6-49.0); Lymphocytes % 11.7 % (15.3-44.8); MPV 7.4 fL (7.6-11.3); RBC Red Blood Cell Count 3.37 M/uL (4.33-5.43)
[2019-09-01 09:10] LABS: Protime INR 1.21
[2019-09-01 09:20] LABS: Albumin 2.4 g/dL (3.4-5.0); Bilirubin Direct 0.1 mg/dL (0-0.2); Bilirubin Total 0.2 mg/dL (0.2-1.0); Potassium 4.3 mmol/L (3.5-5.1); Protein, Total 6.6 g/dL (6.4-8.2); Troponin (Emerg Dept Use Only) 0.02 ng/mL (0.0-0.045)
--- NOTE | 2019-09-01 10:24 | RAD REPORT ---
EXAM DESCRIPTION: Glenny Single View09/01/2019 9:42 am CLINICAL HISTORY: Shortness of breath COMPARISON: 2018 FINDINGS: Mild bilateral pulmonary opacities are present. The heart is moderately enlarged IMPRESSION: These findings likely indicate CHF
--- NOTE | 2019-09-01 10:34 | EKG ---
Test Date: 2019-09-01 Test Time: 09:33:17 Pharmacy Buyer: JESSE MEASUREMENT RESULTS: Intervals: Rate: 56 [place]: QRSD: 84 QT: 430 QTc: 414 [place]: P: [place]: QRS: 83 T: -55 INTERPRETIVE STATEMENTS: Atrial fibrillation with slow ventricular response ST & T wave abnormality, consider inferolateral ischemia or digitalis effect Abnormal ECG Compared to ECG 01/21/2018 11:03:24 ST (T wave) deviation now present Possible ischemia now present Junctional rhythm no longer present Myocardial infarct finding no longer present Electronically Signed On 09-01-19 10:33:24 SETUP TECHNICIAN by Shaquille Gagnon
--- NOTE | 2019-09-01 10:35 | ER ---
Nurse's Notes [facility] Name: Jimmy Soto Age: 83 yrs Sex: Male : 1935 Arrival Date: 09/01/2019 Time: 08:08 Bed 19 Private MD: Cesar Mckenzie B Diagnosis: Anasarca;Chronic kidney disease (CKD);Pulmonary edema;Dyspnea, unspecified Presentation: 09/01 08:21 Presenting complaint: Patient states: i have fluid building up in my testicles and i tw2 cant urinate, i am also itching so bad all over i am scratching myself raw, i have a LEFT great toe wound and i get b/l lower extremity dressing changes by wound care daily, Dr. Mckenzie is my pcp. Transition of care: patient was not received from another setting of care. Onset of symptoms was September 01, 2019. Risk Assessment: Do you want to hurt yourself or someone else? Patient reports no desire to harm self or others. Initial Sepsis Screen: Does the patient meet any 2 criteria? No. Patient's initial sepsis screen is negative. Does the patient have a suspected source of infection? Yes: Skin breakdown/wound. Care prior to arrival: None. 08:21 Acuity: ART 2 tw2 08:21 Method Of Arrival: Wheelchair tw2 Triage Assessment: 08:24 General: Appears uncomfortable, obese, unkempt, Behavior is calm, cooperative, tw2 appropriate for age. Pain: Complains of pain in testicles, legs. Historical: - Allergies: 08:14 No Known Allergies; tw2 - Home Meds: 10:02 doxycycline oral 100 mg oral once daily [Active]; Cipro 500 mg Oral tab 1 tab 2 times tw2 per day [Active]; Edecrin 25 mg oral tab 2 tabs once daily [Active]; metolazone 2.5 mg oral tab 0.5 tab once daily [Active]; bumetanide 1 mg Oral tab 1 tab 2 times per day [Active]; furosemide 40 mg Oral tab 1 tab 2 times per day [Active]; hydralazine 10 mg Oral tab 1 tab 2 times per day [Active]; triamcinolone acetonide 0.025 % Topical lotn 2 times per day [Active]; tamsulosin 0.4 mg oral cp24 1 cap once daily [Active]; tramadol 50 mg Oral tab 1 tab every 4-6 hours [Active]; losartan 100 mg oral tab 1 tab once daily [Active]; - PMHx: 09:51 Diabetes - IDDM; Pneumonia; Hypertension; Hyperlipidemia; Cellulitis; tw2 - Immunization history:: Adult Immunizations. - Social history:: Smoking status: . - Ebola Screening: : Patient denies travel to an Ebola-affected area in the 21 days before illness onset. - Family history:: not pertinent. - Hospitalizations: : Patient was recently seen at. Screenin:13 Abuse screen: Denies threats or abuse. Nutritional screening: No deficits noted. tw2 Tuberculosis screening: No symptoms or risk factors identified. Fall Risk Secondary diagnosis (15 points) impaired mobility. Assessment: 08:15 General: Appears uncomfortable, obese, unkempt, Behavior is calm, cooperative, tw2 appropriate for age. Pain: Complains of pain in abdomen, left foot, right arm, left arm, right leg and left leg. Neuro: Level of Consciousness is awake, alert, obeys commands, Oriented to person, place, time, situation. Cardiovascular: Heart tones S1 S2 Patient's skin is warm and dry. Edema is 4+ to right upper arm, right elbow, right forearm, right wrist, waist, pubic area, left upper thigh, left lower thigh, left knee, left midcalf, left ankle, left upper arm, left elbow, left forearm, left wrist, left hand, right upper thigh, right lower thigh, right knee, right midcalf and right ankle. Respiratory: Reports shortness of breath at rest Airway is patent Respiratory effort is even, unlabored, Respiratory pattern is regular, symmetrical, Breath sounds are diminished bilaterally. GI: Abdomen is round distended, obese, Bowel sounds present X 4 quads. : Reports inability to void, and scrotal swelling. EENT: No signs and/or symptoms were reported regarding the EENT system. Derm: Wound noted medial aspect of left toes Wound is unstable wound noted to medial aspect of left great toe, eschar noted pt has multiple abrasions noted from scratching to b/l arm and legs and abdomen, with redness and swelling noted to b/l arms and legs with weeping noted to legs. Musculoskeletal: Range of motion: limited in all extremities. 08:25 Reassessment: provider at bedside at this time. tw2 10:00 Reassessment: Patient appears in no apparent distress at this time. No changes from tw2 previously documented assessment. Patient and/or family updated on plan of care and expected duration. Pain level reassessed. 11:09 Reassessment: Patient appears in no apparent distress at this time. Patient and/or tw2 family updated on plan of care and expected duration. Pain level reassessed. Vital Signs: 08:21 BP 101 / 48; Pulse 66; Resp 18; Temp 97.7(O); Pulse Ox 92% on R/A; Pain 10/10; tw2 08:45 BP 89 / 40; Pulse 51; Resp 17; Pulse Ox 98% on 2 lpm NC; tw2 09:00 BP 85 / 41; Pulse 60; Resp 16; Pulse Ox 99% on 2 lpm NC; tw2 09:20 Weight 122.92 kg (R); tw2 09:20 BP 90 / 40; Pulse 63; Resp 19; Pulse Ox 99% on 2 lpm NC; tw2 09:45 BP 104 / 63; Pulse 63; Resp 16; Pulse Ox 99% on 2 lpm NC; tw2 10:04 BP 92 / 50; Pulse 62; Resp 15; Pulse Ox 97% on R/A; tw2 10:23 BP 103 / 54; Pulse 62; Resp 17; Pulse Ox 99% on 2 lpm NC; tw2 10:50 BP 85 / 55; Pulse 60; Resp 14; Pulse Ox 99% on 2 lpm NC; tw2 11:00 BP 104 / 56; Pulse 67; Resp 16; Pulse Ox 98% 2 lpm ; tw2 11:27 BP 103 / 60; Pulse 61; Resp 16; Pulse Ox 98% on 2 lpm NC; tw2 12:01 BP 115 / 51; Pulse 61; Resp 16; Pulse Ox 98% on 2 lpm NC; tw2 12:05 Height 5 ft. 6 in. (167.64 cm) (R); tw2 12:39 BP 126 / 51; Pulse 61; Resp 17; Pulse Ox 99% on R/A; tw2 12:05 Body Mass Index 43.74 (122.92 kg, 167.64 cm) tw2 08:21 pt placed on 2L nc at this time. tw2 08:45 provider aware tw2 09:00 provider notified tw2 09:20 "home health weighed me yesterday" tw2 10:04 provider aware tw2 10:50 provider notified. tw2 ED Course: 08:08 Patient arrived in ED. as 08:13 Lesley Garduno, RN is Primary Nurse. tw2 08:13 Arm band placed on. tw2 08:18 Jeremy Leos MD is Attending Physician. rn 08:20 Bed in low position. Call light in reach. Side rails up X 1. Adult w/ patient. Cardiac tw2 monitor on. Pulse ox on. NIBP on. 08:23 Triage completed. tw2 08:35 Inserted saline lock: 20 gauge in right antecubital area, using aseptic technique. tw2 Blood collected. 08:45 Pickett cath inserted, using sterile technique, 18 Fr., by ky, balloon inflated, to tw2 gravity drainage, urine specimen collected. other Deanne, Tech served as labor trainer returned clear yellow urine. Patient tolerated well. 09:32 Cesar Mckenzie MD is Private Physician. hb 09:34 EKG done, by licensed chemical spray technician. reviewed by Jeremy Leos MD. at1 09:43 XRAY CXR (1 view) In Process Unspecified. EDMS 10:31 Saul Sen MD is Hospitalizing Provider. rn 11:22 No provider procedures requiring assistance completed. Patient admitted, IV remains in tw2 place. 12:04 Awaiting: unsuccessful attempt to call report at this time. tw2 12:37 Awaiting: unsuccessful attempt to call report at this time. tw2 12:56 Awaiting: unsuccessful attempt to call report with floor nurse or charge at this time. tw2 Administered Medications: 09:00 Drug: NS 0.9% 250 ml Route: IV; Rate: bolus; Site: right antecubital; tw2 09:45 Follow up: Response: No adverse reaction; IV Status: Completed infusion; IV Intake: tw2 250ml 09:19 Not Given (pt condition): Lasix 40 mg IVP once tw2 09:19 Drug: NS 0.9% 250 ml Route: IV; Rate: bolus; Site: right antecubital; tw2 09:44 Follow up: Response: No adverse reaction; IV Status: Completed infusion; IV Intake: tw2 250ml 10:56 Drug: NS 0.9% 250 ml Route: IV; Rate: calculated rate; Site: right antecubital; tw2 11:21 Follow up: Response: No adverse reaction; IV Status: Completed infusion; IV Intake: tw2 250ml Point of Care Testing: Blood Glucose: 13:23 Blood Glucose: 92 mg/dL; tw2 Ranges: Intake: 09:44 IV: 250ml; Total: 250ml. tw2 09:45 IV: 250ml; Total: 500ml. tw2 11:21 IV: 250ml; Total: 750ml. tw2 11:25 emptied at this time. tw2 13:23 emptied at this time. tw2 Output: 11:25 Urine: 250ml (Pickett); Total: 250ml. tw2 13:23 Urine: 450ml (Pickett); Total: 700ml. tw2 11:25 emptied at this time. tw2 13:23 emptied at this time. tw2 Outcome: 10:33 Decision to Hospitalize by Provider. rn 13:24 Admitted to Med/surg accompanied by tech, via stretcher, room 207, with chart, Report tw2 called to GENA Delgado 13:24 Condition: stable 13:24 Instructed on the need for admit. 13:27 Patient left the ED. tw2 Signatures: Dispatcher [employer] EDMS Marichuy Portillo Roman, MD MD rn Gonzales, Amanda, marketing agent EKG Tat1 Flores Hernandez RN RN hb Wise, Tara, RN RN tw2 Corrections: (The following items were deleted from the chart) 09:14 09:11 BP 85 / 41; Pulse 60bpm; Resp 16bpm; Pulse Ox 99% 2 lpm Nasal Cannula; provider tw2 notified; tw2 10:22 Urine 250, (Pickett), Output Total 250; Note:emptied at this time.. tw2 tw2 10:22 IV 500, (IV Fluid), Intake Total 500; Urine 250, (Pickett), Output Total 250; tw2 Note:emptied at this time.. tw2 11:24 IV 250, (IV Fluid), Intake Total 250; Urine 250, (Pickett), Output Total 250; tw2 Note:emptied at this time.. tw2 11:22 IV 250, (IV Fluid), Intake Total 250. tw2 tw2
--- NOTE | 2019-09-01 10:35 | EDPHYS ---
Physician Documentation [facility] Name: Jimmy Soto Age: 83 yrs Sex: Male : 1935 Arrival Date: 09/01/2019 Time: 08:08 Bed 19 Private MD: Cesar Mckenzie B ED Physician Jeremy Leos HPI: 09/01 08:38 This 83 yrs old Male presents to ER via Wheelchair with complaints of rn Testicular Swelling, Edema. 08:39 The patient presents with swelling, that is moderate. Onset: The symptoms/episode rn began/occurred at an unknown time. Modifying factors: The symptoms are alleviated by nothing, the symptoms are aggravated by nothing. Severity of symptoms: At their worst the symptoms were moderate, in the emergency department the symptoms are unchanged. The patient has experienced similar episodes in the past. Reports worse over last week or so, increased swelling to entire body assoc with sob, no fever. Dyspnea on exertion. Reports feels like is urinating less even though taking diuretics. . Historical: - Allergies: 08:14 No Known Allergies; tw2 - Home Meds: 10:02 doxycycline oral 100 mg oral once daily [Active]; Cipro 500 mg Oral tab 1 tab 2 times tw2 per day [Active]; Edecrin 25 mg oral tab 2 tabs once daily [Active]; metolazone 2.5 mg oral tab 0.5 tab once daily [Active]; bumetanide 1 mg Oral tab 1 tab 2 times per day [Active]; furosemide 40 mg Oral tab 1 tab 2 times per day [Active]; hydralazine 10 mg Oral tab 1 tab 2 times per day [Active]; triamcinolone acetonide 0.025 % Topical lotn 2 times per day [Active]; tamsulosin 0.4 mg oral cp24 1 cap once daily [Active]; tramadol 50 mg Oral tab 1 tab every 4-6 hours [Active]; losartan 100 mg oral tab 1 tab once daily [Active]; - PMHx: 09:51 Diabetes - IDDM; Pneumonia; Hypertension; Hyperlipidemia; Cellulitis; tw2 - Immunization history:: Adult Immunizations. - Social history:: Smoking status: . - Ebola Screening: : Patient denies travel to an Ebola-affected area in the 21 days before illness onset. - Family history:: not pertinent. - Hospitalizations: : Patient was recently seen at. ROS: 08:39 Constitutional: Negative for fever, chills, and weight loss, Eyes: Negative for injury, rn pain, redness, and discharge, Neck: Negative for injury, pain, and swelling, Cardiovascular: + edema, negative for chest pain Respiratory: + sob, neg for cough Abdomen/GI: Negative for abdominal pain, nausea, vomiting, diarrhea, and constipation, : + testicular swelling MS/Extremity: Negative for injury and deformity, Skin: + diffuse rash and itching Neuro: Negative for headache, weakness, numbness, tingling, and seizure. Exam: 08:39 Constitutional: Overweight male, mild tachypnea, diffuse edema Head/Face: rn Normocephalic, atraumatic. ENT: dry MM Cardiovascular: Irregular rhythm, regular rate Respiratory: + mild tachypnea with diminished breath sounds bilateral bases and crackles. Abdomen/GI: soft, non-tender, + subcutaneous pitting edema of abd wall Skin: Diffuse erythema and excoriations, no focal cellulitis, left great toe with chronic wound, no active drainage or fluctuance, no crepitus MS/ Extremity: Pulses equal, no cyanosis. Neurovascular intact. 3+ pitting edema to groins bilaterally with chronic wounds and foul smell of lower extremities. Neuro: Awake and alert, GCS 15, oriented to person, place, time, and situation. Cranial nerves II-XII grossly intact. Motor strength 5/5 in all extremities. Sensory grossly intact. 09:34 ECG was reviewed by the Attending Physician. rn Vital Signs: 08:21 BP 101 / 48; Pulse 66; Resp 18; Temp 97.7(O); Pulse Ox 92% on R/A; Pain 10/10; tw2 08:45 BP 89 / 40; Pulse 51; Resp 17; Pulse Ox 98% on 2 lpm NC; tw2 09:00 BP 85 / 41; Pulse 60; Resp 16; Pulse Ox 99% on 2 lpm NC; tw2 09:20 Weight 122.92 kg (R); tw2 09:20 BP 90 / 40; Pulse 63; Resp 19; Pulse Ox 99% on 2 lpm NC; tw2 09:45 BP 104 / 63; Pulse 63; Resp 16; Pulse Ox 99% on 2 lpm NC; tw2 10:04 BP 92 / 50; Pulse 62; Resp 15; Pulse Ox 97% on R/A; tw2 10:23 BP 103 / 54; Pulse 62; Resp 17; Pulse Ox 99% on 2 lpm NC; tw2 10:50 BP 85 / 55; Pulse 60; Resp 14; Pulse Ox 99% on 2 lpm NC; tw2 11:00 BP 104 / 56; Pulse 67; Resp 16; Pulse Ox 98% 2 lpm ; tw2 11:27 BP 103 / 60; Pulse 61; Resp 16; Pulse Ox 98% on 2 lpm NC; tw2 12:01 BP 115 / 51; Pulse 61; Resp 16; Pulse Ox 98% on 2 lpm NC; tw2 12:05 Height 5 ft. 6 in. (167.64 cm) (R); tw2 12:39 BP 126 / 51; Pulse 61; Resp 17; Pulse Ox 99% on R/A; tw2 12:05 Body Mass Index 43.74 (122.92 kg, 167.64 cm) tw2 08:21 pt placed on 2L nc at this time. tw2 08:45 provider aware tw2 09:00 provider notified tw2 09:20 "home health weighed me yesterday" tw2 10:04 provider aware tw2 10:50 provider notified. tw2 MDM: 08:18 Patient medically screened. rn 10:30 Differential diagnosis: Pt with anasarca, CHF with pulmonary edema. Admitted to Dr. tresa Sen. BP improved with fluids, have been holding lasix for now due to presenting hypotension. Given 500cc fluid. Will admit for cardiology and nephrology consultation. Data reviewed: vital signs, nurses notes, lab test result(s), radiologic studies, plain films, and as a result, I will admit patient. Counseling: I had a detailed discussion with the patient and/or guardian regarding: the historical points, exam findings, and any diagnostic results supporting the discharge/admit diagnosis, lab results, radiology results, the need for further work-up and treatment in the hospital. Response to treatment: the patient's symptoms have mildly improved after treatment, and as a result, I will admit patient. Admission orders: after a detailed discussion of the patient's condition and case, the admit orders are written by me. 09/01 08:28 Order name: Blood Culture Adult (2) rn 09/01 08:28 Order name: BMP; Complete Time: 09:22 rn 09/01 08:28 Order name: CBC with Diff rn 09/01 08:28 Order name: Hepatic Function; Complete Time: 09:22 rn 09/01 08:28 Order name: NT PRO-BNP; Complete Time: 09:22 rn 09/01 08:28 Order name: PT-INR; Complete Time: 09:15 rn 09/01 08:28 Order name: Ptt, Activated; Complete Time: 09:15 rn 09/01 08:28 Order name: Troponin (emerg Dept Use Only); Complete Time: 09:22 rn 09/01 10:29 Order name: Urine Dipstick--Ancillary (enter results); Complete Time: 10:53 bd 09/01 11:34 Order name: Transferrin Sat/Iron Binding EDMS 09/01 11:34 Order name: CBC with Automated Diff EDMS 09/01 11:34 Order name: CBC with Automated Diff EDMS 09/01 11:34 Order name: Comprehensive Metabolic Panel EDMS 09/01 11:34 Order name: Comprehensive Metabolic Panel EDMS 09/01 08:28 Order name: XRAY CXR (1 view); Complete Time: 10:33 rn 09/01 08:28 Order name: EKG; Complete Time: 08:30 rn 09/01 08:28 Order name: Cardiac monitoring; Complete Time: 08:50 rn 09/01 08:28 Order name: EKG - Nurse/Tech; Complete Time: 09:45 rn 09/01 08:28 Order name: IV Saline Lock; Complete Time: 08:50 rn 09/01 11:34 Order name: CONS Pharmacy Consult EDMS 09/01 11:34 Order name: CONS Physician Consult EDMS 09/01 11:34 Order name: Physical Therapy Consult EDMS 09/01 11:34 Order name: Clear Liquid EDMS 09/01 11:34 Order name: Vancomycin Level Trough EDMS 09/01 11:34 Order name: Vancomycin Level Trough EDMS 09/01 13:00 Order name: Manual Differential EDMS 09/01 08:28 Order name: Labs collected and sent; Complete Time: 08:50 rn 09/01 08:28 Order name: O2 Per Protocol; Complete Time: 08:50 rn 09/01 08:28 Order name: O2 Sat Monitoring; Complete Time: 08:50 rn 09/01 08:28 Order name: Nieves; Complete Time: 08:50 rn EC:34 Rate is 56 beats/min. Rhythm is irregularly irregular. QRS [place] is Normal. UT interval rn is normal. QRS interval is normal. QT interval is normal. No Q waves. T waves are Inverted in leads II, III, aVF, V4, V5, V6. No ST changes noted. Clinical impression: Atrial Fibrillation. Interpreted by me. Reviewed by me. Administered Medications: 09:00 Drug: NS 0.9% 250 ml Route: IV; Rate: bolus; Site: right antecubital; tw2 09:45 Follow up: Response: No adverse reaction; IV Status: Completed infusion; IV Intake: tw2 250ml 09:19 Not Given (pt condition): Lasix 40 mg IVP once tw2 09:19 Drug: NS 0.9% 250 ml Route: IV; Rate: bolus; Site: right antecubital; tw2 09:44 Follow up: Response: No adverse reaction; IV Status: Completed infusion; IV Intake: tw2 250ml 10:56 Drug: NS 0.9% 250 ml Route: IV; Rate: calculated rate; Site: right antecubital; tw2 11:21 Follow up: Response: No adverse reaction; IV Status: Completed infusion; IV Intake: tw2 250ml Point of Care Testing: Blood Glucose: 13:23 Blood Glucose: 92 mg/dL; tw2 Ranges: Critical Glucose Levels:Adult <50 mg/dl or >400 mg/dl <40 mg/dl or >180 mg/dl Disposition: 09/01/19 10:33 Hospitalization ordered by Saul Sen for Inpatient Admission. Preliminary diagnosis are Anasarca, Chronic kidney disease (CKD), Pulmonary edema, Dyspnea, unspecified. - Bed requested for Telemetry/MedSurg (Inpatient). - Status is Inpatient Admission. tw2 - Condition is Stable. - Problem is an ongoing problem. - Symptoms have improved. UTI on Admission? No Signatures: Dispatcher [employer] May Huffman RN RN dw Nieto, Roman, MD MD rn Wise, Tara, RN RN tw2 Corrections: (The following items were deleted from the chart) 10:59 08:39 Constitutional: Overweight male, mild tachypnea, diffuse edema Head/Face: rn Normocephalic, atraumatic. ENT: dry MM Cardiovascular: Irregular rhythm, regular rate Respiratory: + mild tachypnea with diminished breath sounds bilateral bases and crackles. Abdomen/GI: soft, non-tender, + subcutaneous pitting edema of abd wall MS/ Extremity: Pulses equal, no cyanosis. Neurovascular intact. 3+ pitting edema to groins bilaterally with chronic wounds and foul smell of lower extremities. Neuro: Awake and alert, GCS 15, oriented to person, place, time, and situation. Cranial nerves II-XII grossly intact. Motor strength 5/5 in all extremities. Sensory grossly intact. rn 11:56 10:33 Hospitalization Ordered by Saul Sen MD for Inpatient Admission. Preliminary dw diagnosis is Anasarca; Chronic kidney disease (CKD); Pulmonary edema; Dyspnea, unspecified. Bed requested for Telemetry/MedSurg (Inpatient). Status is Inpatient Admission. Condition is Stable. Problem is an ongoing problem. Symptoms have improved. UTI on Admission? No. rn 13:27 11:56 09/01/2019 10:33 Hospitalization Ordered by Saul Sen MD for Inpatient tw2 Admission. Preliminary diagnosis is Anasarca; Chronic kidney disease (CKD); Pulmonary edema; Dyspnea, unspecified. Bed requested for Telemetry/MedSurg (Inpatient). Status is Inpatient Admission. Condition is Stable. Problem is an ongoing problem. Symptoms have improved. UTI on Admission? No. dw
[2019-09-01 10:52] LABS: Urine Blood NEGATIVE (NEG); Urine Glucose NEGATIVE (NEG); Urine Protein NEGATIVE (NEG); Urine Specific Gravity 1.015 (1.005-1.030)
[2019-09-01] MEDS ORDERED: ALBUTEROL 2.5 MG/3 ML NEB SOL NEB PRN (11:23)
[2019-09-01] MEDS ORDERED: MORPHINE 2 MG/ML SYR IV PRN (11:23)
[2019-09-01] MEDS ORDERED: ONDANSETRON 4 MG/2 ML VIAL IV PRN (11:23)
[2019-09-01] MEDS ORDERED: NITROGLYCERIN 0.4 MG/TAB SL ONE (11:25)
[2019-09-01] MEDS ORDERED: HYDRALAZINE HCL 20 MG/ML VIAL IV PRN (11:25)
[2019-09-01] MEDS ORDERED: FUROSEMIDE 40 MG/4 ML VIAL IV ONE (11:25)
[2019-09-01] MEDS: INSULIN -REGULAR HUMAN 50 UNIT/0.5 ML ML SQ SCH ×3 (11:30→20:08)
[2019-09-01] MEDS: VANCOMYCIN 2 GM in NA CHLORIDE 0.9% 500 ML IVPB ONE ×2 (12:30→14:52)
[2019-09-01 13:00] LABS: Anisocytosis 1+; Blood Morphology Comment NOTED (NOT SEEN); Platelet Estimate ADEQ
[2019-09-01] MEDS: IPRATROPIUM BROM 0.5MG/2.5ML NEB SCH ×2 (14:23→19:45)
[2019-09-01] MEDS ORDERED: BUMETANIDE 1 MG/4 ML VIAL IV ONE (16:00)
[2019-09-01 16:18] LABS: Uric Acid 11.3 mg/dL (3.5-7.2)
[2019-09-01 16:55] LABS: Urine Protein/Creatinine Ratio 0.64 ratio (<0.15)
[2019-09-01 16:56] LABS: Urine Appearance CLEAR; Urine Bilirubin NEGATIVE (NEG); Urine Blood NEGATIVE (NEG); Urine Color YELLOW; Urine Glucose NEGATIVE (NEG); Urine Protein NEGATIVE (NEG); Urine Urobilinogen 0.2 mg/dL (0.2-1.0)
[2019-09-01 17:05] LABS: Urine Microscopic Reflex ORDER UMIC
[2019-09-01 17:18] LABS: Thyroid Stimulating Hormone 4.72 uIU/mL (0.360-3.740)
[2019-09-01 17:38] LABS: Urine Bacteria <20 /HPF (NONE SEEN); Urine Culture Reflex Order REFLEXED
[2019-09-01] MEDS: DIPHENHYDRAMINE 50 MG/ML VIAL IV PRN (18:39)
--- NOTE | 2019-09-01 19:02 | RAD REPORT ---
EXAM DESCRIPTION: US - Renal Ultrasound-Complete - 09/01/2019 6:41 pm CLINICAL HISTORY: . Acute renal insufficiency COMPARISON: 2018 cat scan FINDINGS: The right kidney measures 11 cm with a normal echotexture. The left kidney measures 9 cm with a normal echotexture. Hydronephrosis is not seen. A Pickett catheter is present within a collapsed bladder IMPRESSION: Unremarkable renal ultrasound.
[2019-09-01] MEDS: ALBUMIN HUMAN 25% 12.5 GM, FUROSEMIDE 100 MG in NA CHLORIDE 0.9% 40 ML IV SCH (19:54)
[2019-09-01] MEDS: GABAPENTIN 300 MG CAP PO SCH (20:08)
[2019-09-01] MEDS: HEPARIN 5000 UNIT/ML 1 ML VIAL SQ SCH (20:08)
[2019-09-01] MEDS ORDERED: VANCOMYCIN 1.25 GM in NA CHLORIDE 0.9% 250 ML IVPB SCH (21:00)
--- NOTE | 2019-09-01 22:00 | HP ---
Date of Admission: 09/01/2019 Presenting Complaint: Increasing body swelling. History Of Present Illness: Mr. 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 Follows with Nephrology, presented now because of increasing body swelling and new oozing from his legs. Patient admits to shortness of breath. He denies any nausea or vomiting, but admits to loss of appetite. He is unsure of how much weight he has gained in the last few days. In the ED, patient has borderline low blood pressure, although he states he has been taking his prisca e medications. Past Medical History: Significant for hypertension, diabetes mellitus, hyperlipidemia, history of pr ogressive chronic kidney disease, history of previous pulmonary edema. Home Medications: See medication list. Allergies: NO KNOWN DRUG ALLERGY. Family History: Noncontributory. Social History: Patient denies any tobacco, alcohol, or illicit drug use. He resides in the [facility]. He is accompanied by the son in the ED now. Review of Systems: All systems reviewed x14 were negative except as mentioned above. Physical Examination: INITIAL VITALS: Blood pressure of 90/40, currently at 100/48, pulse of 65, respiratory rate of 16, t emperature is afebrile, O2 saturation is 95% on 2 L nasal cannula. General: Obese, elderly male, mildly dyspneic on nasal cannula O2. Marked periorbital edema. Head: Atraumatic, normocephalic. Neck: Elevated JVD noted. Neck is supple. Respiratory: Decreased breath sounds at the bases with fluid off to the mid lung zone. Crepitations bilaterally. Cardiovascular: S1, S2. Rate and rhythm regular. Abdomen: Distended, edematous wall also noted with abrasions in the anterior abdominal wall. Extremities: 3+ pedal edema extending up to the thigh, oozing from a lesion on the left leg. MAC er ythema bilateral ankle area with mild tenderness and abrasion with dark eschar over the left great to e. Neuro: Patient is alert and conversant. Laboratory Data: Reviewed. WBC 8.3, hemoglobin 9.6, platelets 202, neutrophils 59%. Sodium 137, po tassium 4.3, bicarb 30, BUN 44, creatinine 1.7. ProBNP of 11,010. Chest x-ray shows mild pulmonary infiltrates suggestive of CHF. EKG shows atrial fibrillation with slow ventricular response. Impression: 1.Acute renal failure, possible baseline chronic kidney disease stage 3. 2.Mild fluid overload with generalized anasarca. 3.Hypotension, rule out sepsis. 4.Atrial fibrillation. 5.Bilateral lower extremity cellulitis. Plan: We will admit patient to telemetry unit. We will monitor reading for now, but no anticoagulat ion yet. We will consult Cardiology. We will consult urgent Nephrology consult. We start patient o n IV Lasix for diuresis. We will hold blood pressure medications. If continuous persistent hypotens ion, we will transfer to ICU for IV pressors. We deferred to Nephrology for further workup including ruling out nephrotic syndrome. We will start empirical antibiotics with vancomycin for bilateral lo wer extremity cellulitis. We will do serial set of cardiac enzymes. Given mild anemia, we will obta in iron level. We will do subcutaneous heparin for DVT prophylaxis. Continue Synthroid for now. Co ntinue O2 as tolerated. Total time spent in review of record, discussion with patient, greater than 60 minutes. Advanced dir ectives, patient preferred to be DNR with DNI. EO/MODL Voice ID: [id number]
[2019-09-02] MEDS: ALBUMIN HUMAN 25% 12.5 GM, FUROSEMIDE 100 MG in NA CHLORIDE 0.9% 40 ML IV SCH ×3 (00:35→10:09)
[2019-09-02] MEDS: IPRATROPIUM BROM 0.5MG/2.5ML NEB SCH ×4 (02:00→20:20)
[2019-09-02 02:04] VITALS: BMI 42.4
[2019-09-02 05:29] LABS: Absolute Lymphocytes (CBC) 0.5 K/uL (0.7-4.9); Basophils % 0.5 % (0-1.3); Hematocrit 28.7 % (39.6-49.0); Lymphocytes % 5.9 % (15.3-44.8); MPV 7.1 fL (7.6-11.3); RBC Red Blood Cell Count 3.31 M/uL (4.33-5.43)
[2019-09-02 05:44] LABS: Albumin 2.4 g/dL (3.4-5.0); Bilirubin Total 0.3 mg/dL (0.2-1.0); Potassium 3.9 mmol/L (3.5-5.1); Protein, Total 6.4 g/dL (6.4-8.2)
[2019-09-02] MEDS: LEVOTHYROXINE SOD 0.125 MG TAB PO SCH (05:45)
[2019-09-02] MEDS: INSULIN -REGULAR HUMAN 50 UNIT/0.5 ML ML SQ SCH ×4 (07:30→21:00)
[2019-09-02] MEDS: allopurinoL 300 MG TAB PO SCH (08:37)
[2019-09-02] MEDS: PANTOPRAZOLE 40MG TABLET PO SCH (08:37)
[2019-09-02] MEDS: HEPARIN 5000 UNIT/ML 1 ML VIAL SQ SCH ×2 (08:37→21:06)
[2019-09-02] MEDS: DIPHENHYDRAMINE 50 MG/ML VIAL IV PRN (08:43)
[2019-09-02 12:26] LABS: Arterial Blood Carboxyhemoglob 2.4 % (0-1.5); Blood O2 Saturation 87.5 % (92-98.5)
--- NOTE | 2019-09-02 13:43 | ECHO ---
HEIGHT: 5 ft 7 in WEIGHT: 271 lb 0 oz DATE OF STUDY: 09/02/[address]: Saul Sen MD 2-DIMENSIONAL: YES M.MODE: YES DOPPLER: YES COLOR FLOW: YES TDS: YES PORTABLE: NO DEFINITY: NO BUBBLE STUDY: NO DIAGNOSIS: ANASARCA, ASSESS LEFT VENTRICULAR EJECTION FRACTION CARDIAC HISTORY: CATHERIZATION: NO SURGERY: NO PROSTHETIC VALVE: NO PACEMAKER: NO MEASUREMENTS (cm) DIASTOLIC (NORMALS) SYSTOLIC (NORMALS) IVSd 1.3 (0.6-1.2) LA Diam 4.0 (1.9-4.0) LVEF 55% LVIDd 4.4 (3.5-5.7) LVIDs 3.2 (2.0-3.5) %FS 29% LVPWd 1.3 (0.6-1.2) Ao Diam 3.2 (2.0-3.7) 2 DIMENSIONAL ASSESSMENT: RIGHT ATRIUM: NORMAL LEFT ATRIUM: DILATED RIGHT VENTRICLE: NORMAL LEFT VENTRICLE: LEFT VENTRICULAR HYPERTROPHY TRICUSPID VALVE: NORMAL MITRAL VALVE: NORMAL PULMONIC VALVE: NORMAL AORTIC VALVE: MILD SCLEROSIS PERICARDIAL EFFUSION: NONE AORTIC ROOT: NORMAL LEFT VENTRICULAR WALL MOTION: NORMAL DOPPLER/COLOR FLOW: IMPAIRED LEFT VENTRICULAR RELAXATION. COMMENTS: NORMAL LEFT VENTRICULAR EJECTION FRACTION. LEFT VENTRICULAR HYPERTROPHY. DILATED LEFT ATRIUM. IMPAIRED LEFT VENTRICULAR RELAXATION. AORTIC SCLEROSIS WITH NO AORTIC STENOSIS OR AORTIC REGURGITATION. TECHNOLOGIST: Flor LINDQUIST
--- NOTE | 2019-09-02 14:14 | P.PN ---
Subjective Date of Service: 09/02/19 Patient seen and examined at bedside with RN. Chart reviewed. Case discussed with nephrology at this time. No other complaints to offer overnight. Has been doing well overall. No shortness of breath or chest pain noted. Review of Systems 10-point ROS is otherwise unremarkable Physical Examination - Vital Signs Temperature: 97.2 F Blood Pressure: 121/59 Pulse: 79 Respirations: 20 Pulse Ox (%): 93 - Physical Exam General: Alert, In no apparent distress HEENT: Atraumatic, PERRLA, EOMI Neck: Supple, JVD not distended Respiratory: Normal air movement, Crackles/rales Cardiovascular: Regular rate/rhythm, Normal S1 S2, Edema Gastrointestinal: Normal bowel sounds, Distended Musculoskeletal: Swelling, Erythema, Tenderness Integumentary: No rashes Neurological: Normal speech, Normal tone, Normal affect Lymphatics: No axilla or inguinal lymphadenopathy - Studies Medications List Reviewed: Yes Assessment And Plan - Current Problems (Diagnosis) (1) Volume overload Current Visit: Yes Status: Acute Plan: Volume overload most likely secondary to acute kidney injury versus CHF exacerbation -currently patient on IV Lasix here in the hospital. -nephrology consulted. Recommend switching IV Lasix to Bumex 1 mg p.o. b.i.d. now -restarted on home medications as well -echocardiogram is pending at this time -patient with generalized anasarca which has been improving since last 24 hr will continue to monitor -strict intake and output and low-sodium diet (2) Acute kidney injury Current Visit: Yes Status: Acute Plan: OTIS with chronic kidney disease stage 3 -patient's initial BUN and creatinine elevated -most likely secondary to volume overload -nephrology consulted appreciated recommendations at this time -will monitor closely and avoid nephrotoxic agent (3) Cellulitis of right foot Onset Date: 06/10/15 Current Visit: No Status: Acute Plan: Patient with right foot cellulitis -currently on IV antibiotics -blood culture and wound culture pending at this time (4) Atrial fibrillation Current Visit: Yes Status: Chronic Plan: Patient with history of atrial fibrillation -currently on beta-choco and anti coagulation has been resumed it here in the hospital Qualifiers: Atrial fibrillation type: unspecified Qualified Code(s): I48.91 - Unspecified atrial fibrillation (5) DM type 2 (diabetes mellitus, type 2) Onset Date: 01/20/18 Current Visit: No Status: Chronic Plan: Accu-Cheks and insulin sliding scale Qualifiers: Diabetes mellitus terminal press operator insulin use: with skilled nursing use Diabetes mellitus complication status: with circulatory complication Diabetes mellitus complication detail: with peripheral angiopathy without gangrene Qualified Code(s): E11.51 - Type 2 diabetes mellitus with diabetic peripheral angiopathy without gangrene; Z79.4 - MCFP (current) use of insulin - Plan Pending clinical improvement at this time Discharge Plan: Home Plan to discharge in: Greater than 2 days - Code Status/Comfort Care Code Status Assessed: Yes Critical Care: No
[2019-09-02] MEDS: ALBUTEROL 2.5 MG/3 ML NEB SOL NEB PRN ×2 (15:17→20:20)
[2019-09-02] MEDS ORDERED: VANCOMYCIN 1 GM in NA CHLORIDE 0.9% 500 ML IVPB ONE (16:00)
[2019-09-02] MEDS ORDERED: VANCOMYCIN 2 GM in NA CHLORIDE 0.9% 500 ML IVPB SCH (17:00)
[2019-09-02] MEDS ORDERED: HYDRALAZINE HCL 10 MG TABLET PO SCH (21:00)
[2019-09-02] MEDS: ATORVASTATIN 40 MG TAB PO SCH (21:05)
[2019-09-02] MEDS: GABAPENTIN 300 MG CAP PO SCH (21:05)
[2019-09-02] MEDS: carvediloL 25 MG TAB PO SCH (21:05)
[2019-09-02] MEDS: BUMETANIDE 1 MG TABLET PO SCH (21:06)
[2019-09-02] MEDS ORDERED: DIPHENHYDRAMINE 12.5MG/5ML LIQ PO ONE (21:16)
[2019-09-03] MEDS: IPRATROPIUM BROM 0.5MG/2.5ML NEB SCH ×2 (01:55→07:40)
[2019-09-03] MEDS: ALBUTEROL 2.5 MG/3 ML NEB SOL NEB PRN ×2 (01:55→07:40)
--- NOTE | 2019-09-03 03:29 | CON ---
Date of Consultation: 09/02/2019 Reason For Consultation: Anasarca, elevated BUN and creatinine, fluid management. History Of Present Illness: This is an 83-year-old gentleman, well known to me from the office with significant past medical history of hypertension, hyperlipidemia, chronic kidney disease stage 3 seco ndary to obstructive uropathy, cardiorenal, pulmonary hypertension, osteomyelitis, status post treatm ent, the patient was in his regular state of health, recently admitted to rehab. There started devel oping anasarca. In the office, we adjusted his diuresis with Lasix and metolazone. Apparently later on, patient developed some allergic reaction to medication, Lasix has been discontinued, switched to Bumex because of the rash, apparently visit with his rabbit fancier, rabbit fancier discontinued Bumex a nd placed him on ethacrynic acid. His anasarca get worse and start having increase in shortness of b reath. For that reason, reported to the hospital, patient complaining some rash all over, complainin g of some ulcer on the left big toe. The patient overnight admitted. Overnight, I gave patient Bume x, discontinued the Lasix with Benadryl. Upon admission creatinine 1.7, today, 1.2. Patient had bee n diuresed 4500 over the night. The patient feeling slightly better. Past Medical History: Include: 1.Hypertension. 2.Diabetes, complicated with neuropathy and nephropathy. 3.Hyperlipidemia. 4.Coronary artery disease, complicated with congestive heart failure. 5.Osteomyelitis. Allergies: NO KNOWN DRUG ALLERGIES. Family History: Positive for hypertension. Social History: Lives with family. Denies any drinking. Denies drugs abuse. Review of Systems: Head and Neck: No red eye. No ear pain. GI: No nausea, no vomiting. : No polyuria, no dysuria. Has urine retention. Business Account Manager: Not applicable. Respiratory: Has shortness of breath. Cardiovascular: Has leg swelling. Endocrine: No polydipsia. Skin: No rash. Neuro: Has neuropathy. Musculoskeletal: Leg pain and toes pain. Physical Examination: Vital Signs: When I saw the patient, blood pressure 148/77; pulse of 88. Chest: Crackles, bilateral. Heart: S1, S2. Systolic murmur. Abdomen: Soft, nontender, ascites. Extremities: +3 edema. Has ulcer on his big toe. Has toe amputation. Skin: Has rash and erythema all over. Neurologic: Alert. No focal. Home Medications: Include: 1.Flomax. 2.Hydralazine. 3.Levothyroxine. 4.Lasix 80. 5.Gabapentin. 6.Carvedilol. 7.Atorvastatin. 8.Januvia. Current medications in the hospital include: 1.Allopurinol. 2.Atorvastatin. 3.Bumex 1 mg b.i.d. 4.Carvedilol. 5.Gabapentin. 6.Hydralazine. 7.Levothyroxine. Laboratory Data: WBC 8.2, H and H 9.4/28.7, and platelets 194. Sodium 140, potassium 3.9, bicarb 31 , BUN 38, creatinine 1.2, calcium 7.7, GFR of 53. TSH of 4.7. Assessment And Plan: 1.Acute kidney injury on chronic kidney disease secondary to cardiorenal, over volume. I am going t o start the patient on Bumex 2 mg b.i.d., and we will place the patient on fluid restriction and stri ct I's and O's. Continue Pickett and we will monitor the patient. I doubt the allergy secondary to [place] or Bumex as his symptoms did not worsen on the Bumex. Possible it is secondary to other medicati on. Patient was started on antibiotic 1 week ago. We will follow up the symptoms. I am going to go ahead and send for blood culture. 2.Hypertension. I am going to utilize blood pressure for more diuresis. 3.Toe ulcer. We will send for blood culture. We will consult wound care. 4.Diabetes as by primary. 5.Congestive heart failure with congestive heart failure exacerbation. We will try to optimize flui d status for the patient. We will follow up. 6.Acute kidney injury on chronic kidney disease, over volume. I am going to continue diuresis as ab ove and we will follow up the patient. 7.Hypokalemia. We will supplement. 8.Obstructive uropathy. Continue Flomax. Continue Pickett. Thank you, Dr. Sen for allowing us to participate in the care of your patient. SISSY/SUSHANT Voice ID: [id number] Report ID: [id number]
[2019-09-03] MEDS: LEVOTHYROXINE SOD 0.125 MG TAB PO SCH (05:40)
[2019-09-03] MEDS: DIPHENHYDRAMINE 25 MG TAB/CAP PO PRN ×3 (05:40→18:33)
[2019-09-03 06:18] LABS: Absolute Lymphocytes (CBC) 0.8 K/uL (0.7-4.9); Basophils % 0.6 % (0-1.3); Hematocrit 27.9 % (39.6-49.0); Lymphocytes % 11.2 % (15.3-44.8); MPV 7.2 fL (7.6-11.3); RBC Red Blood Cell Count 3.21 M/uL (4.33-5.43)
[2019-09-03 07:14] LABS: Albumin 2.4 g/dL (3.4-5.0); Ferritin 171.7 ng/mL (26-388); Folic Acid, (Folate) 4.7 ng/mL (3.1-17.5); Phosphorus 3.8 mg/dL (2.5-4.9); Potassium 3.9 mmol/L (3.5-5.1); Uric Acid 11.7 mg/dL (3.5-7.2)
[2019-09-03] MEDS: INSULIN -REGULAR HUMAN 50 UNIT/0.5 ML ML SQ SCH ×4 (07:30→21:00)
[2019-09-03] MEDS: IPRATROPIUM BROM 0.5MG/2.5ML NEB PRN (07:40)
[2019-09-03] MEDS ORDERED: HYDROCORTISONE 0.5% CREAM 30 GM TOP PRN (08:32)
[2019-09-03] MEDS: HEPARIN 5000 UNIT/ML 1 ML VIAL SQ SCH ×2 (08:53→21:02)
[2019-09-03] MEDS: BUMETANIDE 1 MG TABLET PO SCH ×2 (08:54→20:57)
[2019-09-03] MEDS: PANTOPRAZOLE 40MG TABLET PO SCH (08:54)
[2019-09-03] MEDS: allopurinoL 300 MG TAB PO SCH (08:54)
[2019-09-03] MEDS: FERROUS SULFATE 325 MG TAB PO SCH ×2 (08:54→20:57)
[2019-09-03] MEDS ORDERED: BACI/NEOMYCIN/POLY OINT 15GM TOP SCH (09:00)
--- NOTE | 2019-09-03 10:44 | RAD REPORT ---
EXAM DESCRIPTION: RAD - Chest Pa And Lat (2 Views) - 09/03/2019 10:09 am CLINICAL HISTORY: follow up CHF Chest pain. COMPARISON: Chest Single View dated 09/01/2019; Chest Single View dated 01/26/2018; Chest Single View dated 01/25/2018; Abdomen 1 View (KUB) dated 01/24/2018 FINDINGS: Mild improvement in the pulmonary edema pattern is seen since comparative study. Moderate bilateral pleural effusions persists. The heart is moderately enlarged in size. No displaced fracture s. IMPRESSION: Mild improvement in CHF is present.
--- NOTE | 2019-09-03 15:25 | P.PN ---
Subjective Date of Service: 09/03/19 Primary Care Provider: Dr. Mckenzie Subjective: Improving Physical Examination - Vital Signs Temperature: 97.0 F Blood Pressure: 109/56 Pulse: 68 Respirations: 17 Pulse Ox (%): 91 - Physical Exam General: Alert, In no apparent distress, Cooperative HEENT: Atraumatic Neck: Supple Respiratory: Clear to auscultation bilaterally Cardiovascular: Irregular heart rate/rhythm Gastrointestinal: No ascites Integumentary: Other (Left great toe ulcer) - Studies Medications List Reviewed: Yes Assessment & Plan Discharge Plan: Home Plan to discharge in: 24 Hours Physician Review Additional Text: Impression: Acute on chronic renal disease stage III secondary to cardiorenal, volume overload Acute on chronic diastolic CHF Hypertension Left great toe ulcer Diabetes mellitus type 2 Chronic atrial fibrillation Iron deficiency anemia Plan: Acute on chronic renal disease stage III secondary to Cardiorenal, volume overload: Will continue with Bumex. Continue with 1500 cc per day fluid restriction. Patient has significantly improved. Possible discharge tomorrow. Case discussed with nephrology. Agrees with plan of care. Hypertension: Continue with medication. Will monitor and adjust accordingly. Left great toe ulcer: Patient is seen by a wound care as an outpatient. Will obtain MRI to evaluate for osteomyelitis. Acute on chronic diastolic CHF: Continue with diuresis. Chronic atrial fibrillation: Will confirm cardiac status. Continue with rate control medication. Iron deficiency anemia: Continue with iron supplementation. Diabetes mellitus type 2: Continue with Accu-Cheks and sliding scale. Time Spent Managing Pts Care (In Minutes): 55
[2019-09-03] MEDS ORDERED: predniSONE 20 MG TAB PO SCH (20:00)
[2019-09-03] MEDS: GABAPENTIN 300 MG CAP PO SCH (21:01)
[2019-09-03] MEDS: ATORVASTATIN 40 MG TAB PO SCH (21:01)
[2019-09-03] MEDS ORDERED: SOD FERRIC GLUC COMPLX/SUCROSE 250 MG in NA CHLORIDE 0.9% 250 ML IV SCH (23:00)
[2019-09-03] MEDS ORDERED: SOD FERRIC GLUC COMPLX/SUCROSE 62.5 MG/5 ML VIAL IV ONE ×2 (23:40→23:51)
[2019-09-03] MEDS ORDERED: NA CHLORIDE 0.9% 250 ML ONE (23:42)
[2019-09-04] MEDS: DIPHENHYDRAMINE 25 MG TAB/CAP PO PRN ×3 (00:25→22:21)
--- NOTE | 2019-09-04 03:14 | PN ---
Date of Progress Note: 09/03/2019 Subjective: Patient was admitted with acute kidney injury, anasarca. Patient being diuresed over th e night. Physical Examination: Vital Signs: Blood pressure 153/72, pulse of 65, afebrile. Patient had good urine output of 3900. Weight hitchcock, patient lost 5 pounds. Chest: Crackles, bilateral base. Heart: S1, S2. Systolic murmur. Abdomen: Morbidly obese. Extremities: +2 edema. Ulcer on the left big toe. Laboratory Data: WBC 7.1, H and H 9.3/27.9, platelets 179. Sodium 140, potassium 3.9, bicarb 34, BU N 32, creatinine 1.1, uric acid 11.7, calcium 7.8, phosphorus 3.8, magnesium of 2. T-sat of 14, ferr itin 171. B12 of 1241. TSH within normal at 4.7. Current Medications: The patient on includes: 1.Albuterol. 2.Ferrous sulfate. 3.Heparin. 4.Carvedilol 25 b.i.d. 5.Hydralazine 20 b.i.d. 6.Gabapentin. 7.Bumex 1 mg b.i.d. 8.Breathing treatment. 9.Pantoprazole. 10.Prednisone. Assessment And Plan: 1.Acute kidney injury on chronic kidney disease, back to baseline, recover, still over volume. I am going to continue aggressive diuresis and we will monitor the patient. 2.Allergic reaction to questionable medication. We will start the patient on prednisone. We will m onitor recovery. Continue symptomatic treatment. 3.Hyperkalemia, marginal. We will continue aggressive diuresis. 4.Iron-deficiency anemia. Start the patient on IV iron. Discontinue oral. 5.Rash, unknown etiology, as above. 6.Diabetes as by primary. 7.Anasarca secondary to cardiorenal. We will continue diuresing the patient to establish better vol ume control. We will follow up. SISSY/SUSHANT Voice ID: [id number] Report ID: [id number]
[2019-09-04 05:57] LABS: Albumin 2.6 g/dL (3.4-5.0); Phosphorus 3.6 mg/dL (2.5-4.9); Potassium 4.2 mmol/L (3.5-5.1)
[2019-09-04 06:02] LABS: Absolute Lymphocytes (CBC) 0.4 K/uL (0.7-4.9); Basophils % 0.3 % (0-1.3); Hematocrit 30.9 % (39.6-49.0); Lymphocytes % 9.8 % (15.3-44.8); MPV 7.4 fL (7.6-11.3); RBC Red Blood Cell Count 3.56 M/uL (4.33-5.43)
[2019-09-04] MEDS: LEVOTHYROXINE SOD 0.125 MG TAB PO SCH (06:22)
--- NOTE | 2019-09-04 07:06 | EKG ---
Test Date: 2019-09-04 Test Time: 03:36:13 Veterinarian Small Animal: MYLA MEASUREMENT RESULTS: Intervals: Rate: 69 MN: 248 QRSD: 94 QT: 422 QTc: 452 [place]: P: 86 MN: 248 QRS: 77 T: 14 INTERPRETIVE STATEMENTS: nsr Nonspecific ST and T wave abnormality Abnormal ECG Compared to ECG 09/01/2019 09:33:17 Atrial fibrillation no longer present Possible ischemia no longer present ST (T wave) deviation still present Electronically Signed On 09-04-19 07:06:23 FIRE AND EXPLOSION INVESTIGATOR by Shaquille Gagnon
[2019-09-04] MEDS: INSULIN -REGULAR HUMAN 50 UNIT/0.5 ML ML SQ SCH ×4 (07:30→22:21)
[2019-09-04] MEDS: BUMETANIDE 1 MG TABLET PO SCH ×2 (08:24→22:20)
[2019-09-04] MEDS: allopurinoL 300 MG TAB PO SCH (08:24)
[2019-09-04] MEDS: PANTOPRAZOLE 40MG TABLET PO SCH (08:25)
[2019-09-04] MEDS: predniSONE 20 MG TAB PO SCH (08:25)
[2019-09-04] MEDS: HEPARIN 5000 UNIT/ML 1 ML VIAL SQ SCH ×2 (08:25→22:21)
[2019-09-04] MEDS ORDERED: SOD FERRIC GLUC COMPLX/SUCROSE 250 MG in NA CHLORIDE 0.9% 250 ML IV SCH (09:00)
--- NOTE | 2019-09-04 09:39 | P.PN ---
Subjective Date of Service: 09/04/19 Primary Care Provider: Dr. Mckenzie Chief Complaint: Cellulitis, ARF, Atrial Fib Subjective: No new changes Review of Systems General: Unremarkable Eyes: Unremarkable ENT: Unremarkable Respiratory: SOB with Excertion Cardiovascular: Unremarkable Gastrointestinal: Unremarkable Musculoskeletal: Unremarkable Integumentary: Rash Neurological: Unremarkable Lymphatics: Unremarkable Physical Examination - Vital Signs Temperature: 97.1 F Blood Pressure: 167/70 Pulse: 74 Respirations: 18 Pulse Ox (%): 91 - Physical Exam General: Alert, Oriented x3 HEENT: PERRLA, Mucous membr. moist/pink, EOMI Neck: Supple, 2+ carotid pulse no bruit, JVD not distended, No Thyromegaly Respiratory: Clear to auscultation bilaterally, Normal air movement Cardiovascular: Normal pulses, Regular rate/rhythm, Normal S1 S2, No gallops, No rubs, No murmurs, Other (Patient with anasarca) Capillary refill: <2 Seconds Gastrointestinal: Normal bowel sounds, Soft and benign, Non-distended, No tenderness Musculoskeletal: No clubbing, No contractures, No tenderness, No warmth, Erythema Integumentary: Other (Patient has excoriated rash on chest, arms, legs) Neurological: Normal speech, Normal strength at 5/5 x4 extr, Normal tone, Sensation intact, Cranial nerves 3-12 intact, Normal affect - Studies Medications List Reviewed: Yes Assessment And Plan - Current Problems (Diagnosis) (1) Acute kidney injury Current Visit: Yes Status: Acute (2) Volume overload Current Visit: Yes Status: Acute (3) Atrial fibrillation Current Visit: Yes Status: Chronic Qualifiers: Atrial fibrillation type: unspecified Qualified Code(s): I48.91 - Unspecified atrial fibrillation (4) Cellulitis of right foot Onset Date: 06/10/15 Current Visit: No Status: Acute (5) Decubitus ulcer of foot Onset Date: 06/10/15 Current Visit: No Status: Acute (6) DM type 2 (diabetes mellitus, type 2) Onset Date: 01/20/18 Current Visit: No Status: Chronic Qualifiers: Diabetes mellitus fci insulin use: with fci use Diabetes mellitus complication status: with circulatory complication Diabetes mellitus complication detail: with peripheral angiopathy without gangrene Qualified Code(s): E11.51 - Type 2 diabetes mellitus with diabetic peripheral angiopathy without gangrene; Z79.4 - custodial (current) use of insulin - Plan Patient without acute change this AM. Is complaining of itching again. Started patient back on benadryl. Otherwise v/s stable. Not requiring increase in oxygen use. Normally on home O2. No fevers. No increase in erythema. Awaiting call back from Real Time Trader. Patient still needing Iron transfusion today before being d/c'd. If patient continues to do well will d/c either later today or tomorrow morning. Patient has home health already established. Discharge Plan: Home Plan to discharge in: 24 Hours - Code Status/Comfort Care Code Status: Do Not Attempt Resuscitat Physician Review Additional Text: Impression: Acute on chronic renal disease stage III secondary to cardiorenal, volume overload Acute on chronic diastolic CHF Hypertension Left great toe ulcer Diabetes mellitus type 2 Chronic atrial fibrillation Iron deficiency anemia Plan: Acute on chronic renal disease stage III secondary to Cardiorenal, volume overload: Will continue with Bumex. Continue with 1500 cc per day fluid restriction. Patient has significantly improved. Possible discharge tomorrow. Case discussed with nephrology. Agrees with plan of care. Hypertension: Continue with medication. Will monitor and adjust accordingly. Left great toe ulcer: Patient is seen by a wound care as an outpatient. Will obtain MRI to evaluate for osteomyelitis. Acute on chronic diastolic CHF: Continue with diuresis. Chronic atrial fibrillation: Will confirm cardiac status. Continue with rate control medication. Iron deficiency anemia: Continue with iron supplementation. Diabetes mellitus type 2: Continue with Accu-Cheks and sliding scale. Critical Care: No
--- NOTE | 2019-09-04 12:46 | P.PN ---
Subjective Date of Service: 09/04/19 Primary Care Provider: Dr. Mckenzie Chief Complaint: Cellulitis, ARF, Atrial Fib Pt admitted with worseing rash and edema today BP high , will resume metoprolol i will dc allopurinol as it might cause skin rash, cont to hold hydralazine Cont diuretics Physical Examination - Vital Signs Temperature: 97.1 F Blood Pressure: 170/67 Pulse: 80 Respirations: 19 Pulse Ox (%): 91 - Physical Exam General: Oriented x3, Mild distress Neck: Supple, No LAD Respiratory: Diminished Cardiovascular: Edema Gastrointestinal: Normal bowel sounds, Soft and benign Musculoskeletal: Swelling, Other (B/l Leg wrapped ) Integumentary: Rash(es) - Studies Medications List Reviewed: Yes Assessment And Plan - Plan Acute kidney injury on CKD due to catdiorenal syndrome Cont Bumex VANESSA cont IV iron DM as per primary HTN will resume metoprolol Skin rash hydralazine on hold , will dc allopuriniol cont steroids and bendryl edema Cont bumex daily wt I/o salt and fluid restriction
--- NOTE | 2019-09-04 15:33 | EKG ---
Test Date: 2019-09-04 Test Time: 03:36:40 Business Management Professor: MYLA MEASUREMENT RESULTS: Intervals: Rate: 69 AK: 250 QRSD: 102 QT: 458 QTc: 490 [place]: P: 83 AK: 250 QRS: 76 T: 26 INTERPRETIVE STATEMENTS: Sinus rhythm with 1st degree AV block Nonspecific ST and T wave abnormality Prolonged QT Abnormal ECG Compared to ECG 09/04/2019 03:36:13 First degree AV block now present Prolonged QT interval now present ST (T wave) deviation still present Electronically Signed On 09-04-19 15:31:02 ROCK WOOL APPLICATOR by Shaquille Gagnon
--- NOTE | 2019-09-04 16:50 | P.DS ---
Admission Date: 09/01/19 Discharge Date: 09/04/19 Primary Care Provider: Dr. Mckenzie Reason for Admission: Cellulitis, ARF, Atrial Fib - Problems (1) Acute kidney injury Current Visit: Yes Status: Acute (2) Volume overload Current Visit: Yes Status: Acute (3) Atrial fibrillation Current Visit: Yes Status: Chronic Qualifiers: Atrial fibrillation type: unspecified Qualified Code(s): I48.91 - Unspecified atrial fibrillation (4) Cellulitis of right foot Onset Date: 06/10/15 Current Visit: No Status: Acute (5) Decubitus ulcer of foot Onset Date: 06/10/15 Current Visit: No Status: Acute (6) DM type 2 (diabetes mellitus, type 2) Onset Date: 01/20/18 Current Visit: No Status: Chronic Qualifiers: Diabetes mellitus chcf insulin use: with chcf use Diabetes mellitus complication status: with circulatory complication Diabetes mellitus complication detail: with peripheral angiopathy without gangrene Qualified Code(s): E11.51 - Type 2 diabetes mellitus with diabetic peripheral angiopathy without gangrene; Z79.4 - terminal gauger (current) use of insulin Brief History of Present Illness: This is an 83-year-old gentleman that was admitted for anasarca of volume overload cellulitis of the foot. Nephrology was consulted at that time. Patient has been heavily diuresed for the last couple of days. Has remarkably done well. Cellulitis is improving with antibiotics. Wound care has been done on diabetic ulcer. Patient feeling better and is tolerating nasal cannula which is baseline for him. Patient continues to have excoriated rash that has been started on prednisone for and Benadryl. We will have him follow up with dermatology. Patient has a home health care Saturday through Saturday which has been arranged. Hospital Course: Patient has drastically improved over the last few days. He has been diuresed and been on antibiotics for cellulitis. No fevers. Vital signs have remained stable. Patient was restricted to 1500 mL fluid diet per day. Which has significantly helped with water retention. Patient is at baseline at this time. Patient will go home with prednisone for a rash. Benadryl as needed. Patient will follow up with dermatology. The patient will also follow up with his ip litigation paralegal. Otherwise will continue home medications as prescribed. Patient will also continue home healthcare. <Tristan Jean - Last Filed: 09/04/19 16:44> Admission Date: 09/01/19 Discharge Date: 09/04/19 Hospital Course: Patient much improved. Patient will continue with diuresis at home. Patient has been switched from Lasix to Bumex. Patient will follow up with nephrology as directed. Patient with chronic dermatitis. Patient will be on prednisone for taper dose. Will provide Benadryl as needed for itching. Will recommend Dermatology and allergy evaluation as an outpatient to determine cause. Patient will continue other home medications. <Paras Jay - Last Filed: 09/04/19 20:38> Disposition: DC HOME/HOME HEALTH CARE Discharge Condition: GOOD Vital Signs/Physical Exam: Temp Pulse Resp BP Pulse Ox 97.1 F 80 19 170/67 H 91 09/04/19 12:46 09/04/19 12:46 09/04/19 12:46 09/04/19 12:46 09/04/19 12:46 General: Alert, In no apparent distress, Oriented x3, Cooperative HEENT: Normocephalic, PERRLA, Mucous membr. moist/pink, EOMI Neck: Supple, 2+ carotid pulse no bruit, JVD not distended, No Thyromegaly, No LAD Respiratory: Normal air movement, Crackles/rales (Mild scattered) Cardiovascular: Normal pulses, Regular rate/rhythm, Normal S1 S2 Capillary refill: <2 Seconds Gastrointestinal: Normal bowel sounds, Hypoactive, Soft and benign, Non- distended, No tenderness Musculoskeletal: No clubbing, No swelling, Erythema (Mild erythematous cellulitic foot) Integumentary: Diabetic ulcer Neurological: Normal speech, Normal strength at 5/5 x4 extr, Normal tone, Sensation intact, Cranial nerves 3-12 intact, Normal reflexes 2+, Normal affect Lymphatics: No axilla or inguinal lymphadenopathy Laboratory Data at Discharge: WBC 4.5 K/uL (4.3-10.9) D 09/04/19 05:14 Hgb 10.1 g/dL (13.6-17.9) L 09/04/19 05:14 Hct 30.9 % (39.6-49.0) L 09/04/19 05:14 Plt Count 160 K/uL (152-406) 09/04/19 05:14 PT 14.2 SECONDS (9.5-12.5) H 09/01/19 08:35 INR 1.21 09/01/19 08:35 APTT 33.9 SECONDS (24.3-36.9) 09/01/19 08:35 Sodium 138 mmol/L (136-145) 09/04/19 05:14 Potassium 4.2 mmol/L (3.5-5.1) 09/04/19 05:14 BUN 30 mg/dL (7-18) H 09/04/19 05:14 Creatinine 1.12 mg/dL (0.55-1.3) 09/04/19 05:14 Glucose 157 mg/dL (74-106) H 09/04/19 05:14 Uric Acid 11.7 mg/dL (3.5-7.2) H 09/03/19 05:52 Phosphorus 3.6 mg/dL (2.5-4.9) 09/04/19 05:14 Magnesium 2.0 mg/dL (1.8-2.4) 09/04/19 05:14 Total Bilirubin 0.3 mg/dL (0.2-1.0) 09/02/19 05:07 AST 13 U/L (15-37) L 09/02/19 05:07 ALT 16 U/L (12-78) 09/02/19 05:07 Alkaline Phosphatase 84 U/L (45-117) 09/02/19 05:07 <Tristan Jean - Last Filed: 09/04/19 16:44> Vital Signs/Physical Exam: Temp Pulse Resp BP Pulse Ox 97.1 F 80 19 170/67 H 91 09/04/19 12:46 09/04/19 12:46 09/04/19 12:46 09/04/19 12:46 09/04/19 12:46 Laboratory Data at Discharge: WBC 4.5 K/uL (4.3-10.9) D 09/04/19 05:14 Hgb 10.1 g/dL (13.6-17.9) L 09/04/19 05:14 Hct 30.9 % (39.6-49.0) L 09/04/19 05:14 Plt Count 160 K/uL (152-406) 09/04/19 05:14 PT 14.2 SECONDS (9.5-12.5) H 09/01/19 08:35 INR 1.21 09/01/19 08:35 APTT 33.9 SECONDS (24.3-36.9) 09/01/19 08:35 Sodium 138 mmol/L (136-145) 09/04/19 05:14 Potassium 4.2 mmol/L (3.5-5.1) 09/04/19 05:14 BUN 30 mg/dL (7-18) H 09/04/19 05:14 Creatinine 1.12 mg/dL (0.55-1.3) 09/04/19 05:14 Glucose 157 mg/dL (74-106) H 09/04/19 05:14 Uric Acid 11.7 mg/dL (3.5-7.2) H 09/03/19 05:52 Phosphorus 3.6 mg/dL (2.5-4.9) 09/04/19 05:14 Magnesium 2.0 mg/dL (1.8-2.4) 09/04/19 05:14 Total Bilirubin 0.3 mg/dL (0.2-1.0) 09/02/19 05:07 AST 13 U/L (15-37) L 09/02/19 05:07 ALT 16 U/L (12-78) 09/02/19 05:07 Alkaline Phosphatase 84 U/L (45-117) 09/02/19 05:07 <Paras Jay - Last Filed: 09/04/19 20:38> Patient Discharge Instructions: Patient to continue medications prescribed. Patient to follow up with Wildlife Biology Technician after the weekend. Patient to follow up with dermatology. To go back to ED if symptoms worsen Diet: Low sodium Activity: Ad jovi Time spent managing pt's care (in minutes): 45 <Tristan Jean - Last Filed: 09/04/19 16:44> <Paras Jay - Last Filed: 09/04/19 20:38> Home Medications: Levothyroxine [Synthroid*] 50 mcg PO [id number] 05/20/19 Sitagliptin Phosphate [Januvia*] 50 mg PO DAILY 05/20/19 Tamsulosin HCl [Flomax] 0.4 mg PO DAILY 05/20/19 Atorvastatin Calcium [Lipitor] 40 mg PO BEDTIME #30 tab 09/04/19 Bumetanide [Bumex*] 1 mg PO BID #30 tab 09/04/19 Diphenhydramine [Benadryl*] 25 mg PO Q6H PRN #30 tab 09/04/19 Hydralazine [Apresoline*] 20 mg PO BID #30 tab 09/04/19 Hydrocortisone Cream [Hydrocortisone 0.5% Cream*] 1 appl TOP BID PRN #1 tube Pantoprazole [Protonix Tab*] 40 mg PO DAILY #30 tab 09/04/19 carvediloL [Coreg*] 25 mg PO BID #60 tab 09/04/19 predniSONE [Prednisone*] 40 mg PO DAILY #7 tab 09/04/19 New Medications: Atorvastatin Calcium [Lipitor] 40 mg PO BEDTIME #30 tab Bumetanide [Bumex*] 1 mg PO BID #30 tab carvediloL [Coreg*] 25 mg PO BID #60 tab Diphenhydramine [Benadryl*] 25 mg PO Q6H PRN #30 tab PRN Reason: Itching Hydralazine [Apresoline*] 20 mg PO BID #30 tab Hydrocortisone Cream [Hydrocortisone 0.5% Cream*] 1 appl TOP BID PRN #1 tube PRN Reason: Itching Pantoprazole [Protonix Tab*] 40 mg PO DAILY #30 tab predniSONE [Prednisone*] 40 mg PO DAILY #7 tab Followup: Ruby Kincaid MD [ACTIVE - CAN ADMIT] -
[2019-09-04] MEDS: IPRATROPIUM BROM 0.5MG/2.5ML NEB PRN (20:10)
[2019-09-04] MEDS: ALBUTEROL 2.5 MG/3 ML NEB SOL NEB PRN (20:10)
[2019-09-04] MEDS: ATORVASTATIN 40 MG TAB PO SCH (22:20)
[2019-09-04] MEDS: carvediloL 25 MG TAB PO SCH (22:21)
[2019-09-04] MEDS: GABAPENTIN 300 MG CAP PO SCH (22:28)
[2019-09-05 04:34] VITALS: TEMP 97.1
[2019-09-05] MEDS: LEVOTHYROXINE SOD 0.125 MG TAB PO SCH (05:02)
[2019-09-05] MEDS ORDERED: ACETAMINOPHEN 500 MG TAB PO PRN (05:08)
[2019-09-05] MEDS: DIPHENHYDRAMINE 25 MG TAB/CAP PO PRN (05:10)
[2019-09-05 06:41] LABS: Absolute Lymphocytes (CBC) 0.8 K/uL (0.7-4.9); Basophils % 0.3 % (0-1.3); Lymphocytes % 16.9 % (15.3-44.8); MPV 7.1 fL (7.6-11.3); RBC Red Blood Cell Count 3.53 M/uL (4.33-5.43)
[2019-09-05 06:55] LABS: Albumin 2.6 g/dL (3.4-5.0)
[2019-09-05] MEDS: INSULIN -REGULAR HUMAN 50 UNIT/0.5 ML ML SQ SCH (07:30)
[2019-09-05] MEDS: BUMETANIDE 1 MG TABLET PO SCH (08:54)
[2019-09-05] MEDS: HEPARIN 5000 UNIT/ML 1 ML VIAL SQ SCH (08:54)
[2019-09-05] MEDS: predniSONE 20 MG TAB PO SCH (08:55)
[2019-09-05] MEDS: PANTOPRAZOLE 40MG TABLET PO SCH (08:55)
[2019-09-05] MEDS: carvediloL 25 MG TAB PO SCH (08:55)
[2019-09-05 09:01] VITALS: BP 149/63
[2019-09-05 10:58] VITALS: O2SAT 100
[2019-09-08 11:39] LABS: Vitamin D 1,25-Dihydroxy Total 14 pg/mL (18-72); Vitamin D,1,25-OH2, D2 <8 pg/mL
== END 2019-09-05 09:58 | disposition home health service (06) | DRG 291 ==
LOC: ER 08:07 → ERHOLD 11:36 → 2ND 13:16
PROVIDERS: ADMIT Internal Medicine; ATTEND Internal Medicine
DX: I13.0 Hypertensive heart and chronic kidney disease with heart failure and stage 1 through stage 4 chronic kidney disease, or unspecified chronic kidney disease (principal); I50.33 Acute on chronic diastolic (congestive) heart failure; N17.9 Acute kidney failure, unspecified; I48.20 Chronic atrial fibrillation, unspecified; L03.115 Cellulitis of right lower limb; E11.22 Type 2 diabetes mellitus with diabetic chronic kidney disease; N18.3 Chronic kidney disease, stage 3 (moderate); D50.9 Iron deficiency anemia, unspecified; E11.621 Type 2 diabetes mellitus with foot ulcer; L97.529 Non-pressure chronic ulcer of other part of left foot with unspecified severity; E87.5 Hyperkalemia; R21 Rash and other nonspecific skin eruption; I25.10 Atherosclerotic heart disease of native coronary artery without angina pectoris
CPT/HCPCS: 36415; 51702; 71045; 71046; 76770; 80048; 80053; 80069; 80076; 81003; 81015; 82040; 82550; 82570; 82607; 82652; 82728; 82746; 82805; 82947; 83540; 83735; 83880; 84100; 84156; 84439; 84443; 84466; 84484; 84550; 85025; 85044; 85610; 85730; 87040; 87086; 87088; 93005; 93306; 94640; 96360; 96365; 97112; 97116; 97161; 97530; 99285; J1200; J1644; J1940; J2916; J7030; J7040; J7512; P9047

== ENCOUNTER 2019-09-09 12:33 | Emergency (ER) | payer OTHER ==
--- OUTSIDE RECORDS SUMMARY | 2019-09-09 12:35 | XMS REPORT ---
[...] Status Dosage System Date Date HydrALAZINE HCl [facility] 17911813304 10 MG Orally Apr 30, Active 1 tablet Four times a 2017 with food day Januvia ND 30889733081 50 MG Orally Active as directed NovoLog ND 70669390268 100 UNIT/ML Active as Subcutaneous directed Gabapentin [facility] 53013504279 400 MG Orally Active 1 capsule Twice a day Tramadol HCl ND 29198015600 50 MG Oral Active (Schedule IV Drug) TAKE ONE (1) TO TWO (2) TABLET(S) BY MOUTH THREE TIMES A DAY NEEDED. Coreg ND 35985725375 3.125 MG Orally Active as directed Lantus ND 36453557397 100 UNIT/ML Active as Subcutaneous directed lasix NDC 0 Oral Active 1 tab Linzess ND 26156946726 290 mcg Active not defined Levothyroxine ND 01651325177 25 MCG Oral Active (Prior Sodium Auth: Rx Ref#:[id number]) Flomax [facility] [address]-52 0.4 MG Orally Active 1 capsule Once a day 30 minutes after the same meal each day Results No Known Results Summary Purpose eClinicalWorks Submission
--- OUTSIDE RECORDS SUMMARY | 2019-09-09 12:35 | XMS REPORT ---
:1935 [facility] Address [address] [place] [address] Dr. Varela [address] [place] [id number] Care Team Providers Name Role Phone ANTHONY RG Unavailable Unavailable CLAIRE IYER Unavailable Unavailable Problems This patient has no known problems. Allergies, Adverse Reactions, Alerts This patient has no known allergies or adverse reactions. Medications This patient has no known medications. Encounters Start End Encounter Admission Attending Care Care Encounter Date/Time Date/Time Type Type Clinicians Facility Department ID 2019-06-16 2019-06-16 Outpatient C SIMÓN, Gayatri RAD [id number] 15:18:00 23:59:00 ANTHONY Results Test Description Test Time Test Comments Text Results Atomic Results Result Comments NM LUNG (V/Q ) SCAN*WW* 2019-06-16 16:46:52 Radionuclide ventilation/ perfusion lung scanLocation Code: [id number]: Shortness of breathCOMPARISON: NoneCOMMENT: Routine images of [...] 157 mg/dL 70-[address] [facility] 7200 [id number]) [facility] [address]
--- NOTE | 2019-09-09 13:00 | EDPHYS ---
Physician Documentation [facility] Name: Jimmy Soto Age: 83 yrs Sex: Male : 1935 Arrival Date: 09/09/2019 Time: 12:34 Bed 15 Private MD: ED Physician Virgilio Gomez HPI: 09/09 16:03 This 83 yrs old Male presents to ER via Wheelchair with complaints of low O2 kdr sat. 16:04 The patient was out at a doctors appointment and was having trouble with his oxygen kdr bottle and had been on the bottle for some time. When he was finally taken back by the nursing staff he was noted to have an O2 sat of 84%. When the patient was placed on what appeared to be a reliable oxygen source, his saturation improved to 99 - 100%. He christiano had any c/o in at the time of the apparent hypoxia or since. At present, he feel to be at his baseline. Historical: - Allergies: 12:41 No Known Allergies; hb - Home Meds: 12:41 bumetanide 1 mg Oral tab 1 tab 2 times per day [Active]; Cipro 500 mg Oral tab 1 tab 2 hb times per day [Active]; doxycycline 100 mg Oral once daily [Active]; Edecrin 25 mg Oral tab 2 tabs once daily [Active]; furosemide 40 mg Oral tab 1 tab 2 times per day [Active]; hydralazine 10 mg Oral tab 1 tab 2 times per day [Active]; losartan 100 mg Oral tab 1 tab once daily [Active]; metolazone 2.5 mg Oral tab 0.5 tab once daily [Active]; tamsulosin 0.4 mg Oral cp24 1 cap once daily [Active]; tramadol 50 mg Oral tab 1 tab every 4-6 hours [Active]; triamcinolone acetonide 0.025 % Topical lotn 2 times per day [Active]; - PMHx: 12:41 Cellulitis; Diabetes - IDDM; Hyperlipidemia; Hypertension; Pneumonia; hb - Immunization history:: Adult Immunizations up to date. - Social history:: Smoking status: Patient/guardian denies using tobacco. - Ebola Screening: : No symptoms or risks identified at this time. ROS: 16:04 Constitutional: Negative for fever, chills, and weight loss, Eyes: Negative for injury, kdr pain, redness, and discharge, ENT: Negative for injury, pain, and discharge, Neck: Negative for injury, pain, and swelling, Cardiovascular: Negative for chest pain, palpitations, and edema, Respiratory: Negative for shortness of breath, cough, wheezing, and pleuritic chest pain, Abdomen/GI: Negative for abdominal pain, nausea, vomiting, diarrhea, and constipation, Back: Negative for injury and pain, : Negative for injury, bleeding, discharge, and swelling, MS/Extremity: Negative for injury and deformity, Skin: Negative for injury, rash, and discoloration, Neuro: Negative for headache, weakness, numbness, tingling, and seizure activity. Psych: Negative for depression, anxiety, suicide ideation, homicidal ideation, and hallucinations, Allergy/Immunology: Negative for hives, rash, and allergies, Endocrine: Negative for neck swelling, polydipsia, polyuria, polyphagia, and marked weight changes, Hematologic/Lymphatic: Negative for swollen nodes, abnormal bleeding, and unusual bruising. Exam: 16:04 Constitutional: This is a well developed, well nourished patient who is awake, alert, kdr and in no acute distress. Head/Face: Normocephalic, atraumatic. Eyes: Pupils equal round and reactive to light, extra-ocular motions intact. Lids and lashes normal. Conjunctiva and sclera are non-icteric and not injected. Cornea within normal limits. Periorbital areas with no swelling, redness, or edema. Neck: Trachea midline, no thyromegaly or masses palpated, and no cervical lymphadenopathy. Supple, full range of motion without nuchal rigidity, or vertebral point tenderness. No Meningismus. Chest/axilla: Normal chest wall appearance and motion. Nontender with no deformity. No lesions are appreciated. Cardiovascular: Regular rate and rhythm with a normal S1 and S2. No gallops, murmurs, or rubs. Normal PMI, no JVD. No pulse deficits. Respiratory: Lungs have equal breath sounds bilaterally, clear to auscultation and percussion. No rales, rhonchi or wheezes noted. No increased work of breathing, no retractions or nasal flaring. Abdomen/GI: Soft, non-tender, with normal bowel sounds. No distension or tympany. No guarding or rebound. No evidence of tenderness throughout. Back: No spinal tenderness. No costovertebral tenderness. Full range of motion. Skin: Warm, dry with normal turgor. Normal color with no rashes, no lesions, and no evidence of cellulitis. MS/ Extremity: The patient has limited use of his lower extermites due to wraps from the toes to the knees. His upper extermities are at baseline and no concerns with his lower extremities Neuro: Awake and alert, GCS 15, oriented to person, place, time, and situation. Cranial nerves II-XII grossly intact. Motor strength 5/5 in all extremities. Sensory grossly intact. Cerebellar exam normal. Normal gait. Psych: Awake, alert, with orientation to person, place and time. Behavior, mood, and affect are within normal limits. Vital Signs: 12:38 BP 169 / 65; Pulse 56; Resp 20; Temp 97.7; Pulse Ox 98% on 3 lpm NC; Weight 122.47 kg; hb Height 5 ft. 7 in. (170.18 cm); Pain 0/10; 13:00 BP 133 / 94; Pulse 58; Resp 18 S; Temp 97.0(TE); Pulse Ox 100% on 3 lpm NC; Pain 0/10; aa5 12:38 Body Mass Index 42.29 (122.47 kg, 170.18 cm) hb MDM: 12:59 Patient medically screened. kdr 16:04 Data reviewed: vital signs, nurses notes. Counseling: I had a detailed discussion with kdr the patient and/or guardian regarding: the historical points, exam findings, and any diagnostic results supporting the discharge/admit diagnosis, the need for outpatient follow up. ED course: The patient and son were not concerned with an acute new or recurrent illness. The son felt that once the patient was placed on a reliable oxygen source his saturations were fine and he was never symptomatic in any way. he had no other c/o in the ED and they wished to be discharged without any additional w/u to be done. Administered Medications: No medications were administered Disposition: 19 12:59 Discharged to Home. Impression: Shortness of breath, Hypoxia - transient secondary to exertion and oxygen bottle malfunction. - Condition is Stable. - Discharge Instructions: Shortness of Breath, [id number]. - Medication Reconciliation Form, Thank You Letter form. - Follow up: Private Physician; When: 2 - 3 days; Reason: If symptoms return, Further diagnostic work-up, Recheck today's complaints, Continuance of care, Re-evaluation by your physician. - Problem is an acute exacerbation. - Symptoms are resolved. Signatures: Virgilio Gomez MD MD [facility] Nicolette Almanzar RN RN aa5 Flores Hernandez RN RN Corrections: (The following items were deleted from the chart) 13:16 12:59 09/09/2019 12:59 Discharged to Home. Impression: Shortness of breath; Hypoxia - aa5 transient secondary to exertion and oxygen bottle malfunction. Condition is Stable. Forms are Medication Reconciliation Form, Thank You Letter, Antibiotic Education, Prescription Opioid Use. Follow up: Private Physician; When: 2 - 3 days; Reason: If symptoms return, Further diagnostic work-up, Recheck today's complaints, Continuance of care, Re-evaluation by your physician. Problem is an acute exacerbation. Symptoms are resolved. kdr
--- NOTE | 2019-09-09 13:00 | ER ---
Nurse's Notes [facility] Name: Jimmy Soto Age: 83 yrs Sex: Male : 1935 Arrival Date: 09/09/2019 Time: 12:34 Bed 15 Private MD: Diagnosis: Shortness of breath;Hypoxia - transient secondary to exertion and oxygen bottle malfunction Presentation: 09/09 12:35 Presenting complaint: [facility] SpO2 70s on 4LNC, improved to 85% hb on 6LNC. Transition of care: patient was not received from another setting of care. Onset of symptoms was September 09, 2019. Risk Assessment: Do you want to hurt yourself or someone else? Patient reports no desire to harm self or others. Care prior to arrival: None. 12:35 Method Of Arrival: Wheelchair hb 12:35 Acuity: ART 3 aa5 12:35 Initial Sepsis Screen: Does the patient meet any 2 criteria? No. Patient's initial aa5 sepsis screen is negative. Does the patient have a suspected source of infection? No. Patient's initial sepsis screen is negative. Historical: - Allergies: 12:41 No Known Allergies; hb - Home Meds: 12:41 bumetanide 1 mg Oral tab 1 tab 2 times per day [Active]; Cipro 500 mg Oral tab 1 tab 2 hb times per day [Active]; doxycycline 100 mg Oral once daily [Active]; Edecrin 25 mg Oral tab 2 tabs once daily [Active]; furosemide 40 mg Oral tab 1 tab 2 times per day [Active]; hydralazine 10 mg Oral tab 1 tab 2 times per day [Active]; losartan 100 mg Oral tab 1 tab once daily [Active]; metolazone 2.5 mg Oral tab 0.5 tab once daily [Active]; tamsulosin 0.4 mg Oral cp24 1 cap once daily [Active]; tramadol 50 mg Oral tab 1 tab every 4-6 hours [Active]; triamcinolone acetonide 0.025 % Topical lotn 2 times per day [Active]; - PMHx: 12:41 Cellulitis; Diabetes - IDDM; Hyperlipidemia; Hypertension; Pneumonia; hb - Immunization history:: Adult Immunizations up to date. - Social history:: Smoking status: Patient/guardian denies using tobacco. - Ebola Screening: : No symptoms or risks identified at this time. Screenin:40 Abuse screen: Denies threats or abuse. Nutritional screening: No deficits noted. aa5 Tuberculosis screening: No symptoms or risk factors identified. Fall Risk Secondary diagnosis (15 points) impaired mobility, Total Lopez Fall Scale indicates No Risk (0-24 pts). Assessment: 12:40 General: Appears comfortable, Behavior is calm, cooperative. Pain: Denies pain. Neuro: aa5 Level of Consciousness is awake, alert, obeys commands, Oriented to person, place, time, situation. Cardiovascular: Heart tones S1 S2 present Rhythm is regular. Respiratory: Airway is patent Respiratory effort is even, unlabored, Respiratory pattern is regular, symmetrical, Denies shortness of breath. GI: Abdomen is obese, Swelling and redness noted to abdomen. Pt's son states "He's stomach is always swollen and we were here about 1 week ago and it's actually better than it was before". 12:40 : No signs and/or symptoms were reported regarding the genitourinary system. EENT: No aa5 signs and/or symptoms were reported regarding the EENT system. Derm: Skin is pink, warm \\T\\ dry. Musculoskeletal: Range of motion: intact in all extremities, Dressing noted to cesar lower extremities. 12:40 Reassessment: Pt's son states "I think his portable oxygen tank is not working". CF aa5 (continuous flow) on oxygen tank working properly, pt's son states "he normally uses the conservation flow at 3 L and you can only check it when he is wearing it because it has to detect the breathing for it to deliver the oxygen". . 13:00 Reassessment: Monitoring pt currently using personal portable oxygen at 3L, Oxygen aa5 worked properly for approximately 2 minutes and malfunction was noted after, pt's O2 sat decreased to 91% during malfunction. Pt placed back on wall oxygen at 3L NC and O2 sat increased to 99%. Pt denies SOB. Pt's son states "I can just take him home on the continuous flow oxygen because at home we have a completely different machine and we also have a spare portable oxygen tank that we can use". was notified of findings and states it's ok to d/c pt home now. . 13:10 Reassessment: Patient is alert, oriented x 3, equal unlabored respirations, skin aa5 warm/dry/pink. Pt's O2 sat remained 98% via 3 L NC during transfer from bed to wheelchair. Pt denies SOB. . Vital Signs: 12:38 BP 169 / 65; Pulse 56; Resp 20; Temp 97.7; Pulse Ox 98% on 3 lpm NC; Weight 122.47 kg; hb Height 5 ft. 7 in. (170.18 cm); Pain 0/10; 13:00 BP 133 / 94; Pulse 58; Resp 18 S; Temp 97.0(TE); Pulse Ox 100% on 3 lpm NC; Pain 0/10; aa5 12:38 Body Mass Index 42.29 (122.47 kg, 170.18 cm) hb ED Course: 12:34 Patient arrived in ED. bp 12:37 Virgilio Gomez MD is Attending Physician. kdr 12:38 Triage completed. hb 12:39 Arm band placed on. hb 12:39 Patient has correct armband on for positive identification. aa5 12:40 EKG done, by dental technology advisor. reviewed by Virgilio Gomez MD. at1 12:59 Nicolette Almanzar, RN is Primary Nurse. aa5 13:15 No provider procedures requiring assistance completed. Patient did not have IV access aa5 during this emergency room visit. Administered Medications: No medications were administered Outcome: 12:59 Discharge ordered by . kdr 13:15 Discharged to home via wheelchair, with family. aa5 13:15 Condition: stable aa5 13:15 Discharge instructions given to patient, family, Instructed on discharge instructions, follow up and referral plans. Demonstrated understanding of instructions, follow-up care. 13:16 Patient left the ED. aa5 Signatures: Virgilio Gomez MD MD kdr Nicolette Almanzar, RN RN aa5 Zulema Min, laser specialist EKG Tat1 Flores Hernandez, RN RN hb Tee Smith RN RN bp Corrections: (The following items were deleted from the chart) 12:47 12:35 Acuity: ART 2 hb aa5 16:28 12:50 Reassessment: Monitoring pt currently using personal portable oxygen at 3L, aa5 Oxygen worked properly for approximately 2 minutes and malfunction was noted after. . aa5 16:30 12:45 Reassessment: Monitoring pt currently using personal portable oxygen at 3L, aa5 Oxygen worked properly for approximately 2 minutes and malfunction was noted after, pt's O2 sat decreased to 91% during malfunction. Pt placed back on wall oxygen at 3L NC and O2 sat increased to 99%. Pt denies SOB. Pt's son states "I can just take him home on the continuous flow oxygen because at home we have a completely different machine and we also have a spare portable oxygen tank that we can use". was notified of findings and states it's ok to d/c pt home now. . aa5 16:30 13:00 Reassessment: Patient is alert, oriented x 3, equal unlabored respirations, skin aa5 warm/dry/pink. Pt's O2 sat remained 98% via 3 L NC during transfer from bed to wheelchair. Pt denies SOB. . aa5
[2019-09-09 13:25] VITALS: BP 169/65; TEMP 97.7; O2SAT 98
--- NOTE | 2019-09-10 12:45 | EKG ---
Test Date: 2019-09-09 Test Time: 12:33:52 Ditcher: JESSE MEASUREMENT RESULTS: Intervals: Rate: 54 NM: 234 QRSD: 102 QT: 450 QTc: 426 Whitman: P: 83 NM: 234 QRS: 102 T: -44 INTERPRETIVE STATEMENTS: Sinus bradycardia with 1st degree AV block Rightward axis ST & T wave abnormality, consider inferior ischemia Abnormal ECG Compared to ECG 09/04/2019 03:36:40 Right-axis deviation now present Possible ischemia now present Sinus rhythm no longer present Prolonged QT interval no longer present ST (T wave) deviation still present Electronically Signed On 09-10-19 12:42:31 ORCHARDIST by Shaquille Gagnon
== END 2019-09-09 13:16 | disposition home or self-care (01) ==
LOC: ER 12:33
DX: R09.02 Hypoxemia (principal); R06.02 Shortness of breath; E11.9 Type 2 diabetes mellitus without complications; I10 Essential (primary) hypertension; E78.5 Hyperlipidemia, unspecified; Z79.4 Long term (current) use of insulin
CPT/HCPCS: 93005; 99283

== ENCOUNTER 2019-09-11 07:49 | Inpatient (IN) | payer OTHER ==
--- OUTSIDE RECORDS SUMMARY | 2019-09-11 07:53 | XMS REPORT ---
[...] Status Dosage System Date Date HydrALAZINE HCl [facility] 63322077727 10 MG Orally Apr 30, Active 1 tablet Four times a 2017 with food day Januvia ND 99783469543 50 MG Orally Active as directed NovoLog ND 78043702346 100 UNIT/ML Active as Subcutaneous directed Gabapentin [facility] 76729440228 400 MG Orally Active 1 capsule Twice a day Tramadol HCl ND 66155404724 50 MG Oral Active (Schedule IV Drug) TAKE ONE (1) TO TWO (2) TABLET(S) BY MOUTH THREE TIMES A DAY NEEDED. Coreg ND 50790766519 3.125 MG Orally Active as directed Lantus ND 99366687776 100 UNIT/ML Active as Subcutaneous directed lasix NDC 0 Oral Active 1 tab Linzess ND 34585580523 290 mcg Active not defined Levothyroxine ND 06154102133 25 MCG Oral Active (Prior Sodium Auth: Rx Ref#:[id number]) Flomax [facility] [address]-12 0.4 MG Orally Active 1 capsule Once a day 30 minutes after the same meal each day Results No Known Results Summary Purpose eClinicalWorks Submission
--- OUTSIDE RECORDS SUMMARY | 2019-09-11 07:53 | XMS REPORT ---
:1935 [facility] Address [address] [place] [address] Dr. Varela [address] [place] [id number] Care Team Providers Name Role Phone ANTHONY [...] 2019-06-16 2019-06-16 Outpatient C SIMÓN Gayatri RAD [id number] 15:18:00 23:59:00 ANTHONY Results Test Description Test Time Test Comments Text Results Atomic Results Result Comments NM LUNG (V/Q ) SCAN*WW* 2019-06-16 16:46:52 Radionuclide ventilation/ perfusion lung scanLocation Code: S1OCLULTY: Shortness of breathCOMPARISON: NoneCOMMENT: Routine images of [...] (ISHAAN) (test 157 mg/dL 70-110 TESTED AT [facility] 7200 [id number]) [facility] [id number]
[2019-09-11] MEDS ORDERED: BUMETANIDE 1 MG/4 ML VIAL IV ONE (08:15)
[2019-09-11 08:26] LABS: Absolute Lymphocytes (CBC) 0.9 K/uL (0.7-4.9); Basophils % 0.8 % (0-1.3); Hematocrit 30.2 % (39.6-49.0); Lymphocytes % 9.6 % (15.3-44.8); MPV 7.8 fL (7.6-11.3); RBC Red Blood Cell Count 3.37 M/uL (4.33-5.43)
--- NOTE | 2019-09-11 09:08 | RAD REPORT ---
EXAM DESCRIPTION: RAD - Chest Single View - 09/11/2019 8:53 am CLINICAL HISTORY: Shortness of breath COMPARISON: September 03 TECHNIQUE: AP portable chest image was obtained 0847 hours . FINDINGS: Underinflated. No focal consolidation. Patient has a prominent interstitial pattern. Cardi omegaly and central vascular engorgement are present. Trachea is midline. No pneumothorax or large pl eural effusion. No acute bony abnormality seen. No acute aortic findings suspected. IMPRESSION: CHF/volume overload changes are present similar or fractionally worse than September 03 kasi tamayo
[2019-09-11 09:15] LABS: Urine Blood TRACE (NEG); Urine Glucose NEGATIVE (NEG); Urine Protein 1+ (NEG); Urine Specific Gravity 1.015 (1.005-1.030); Urine pH 5.5 (5.0-7.0)
[2019-09-11 10:08] LABS: BUN Blood Urea Nitrogen 49 mg/dL (7-18); Bicarbonate 33 mmol/L (21-32); Glucose Level 277 mg/dL (74-106); NT PRO-BNP 5637 pg/mL (<450); Potassium 4.2 mmol/L (3.5-5.1); Sodium Level 138 mmol/L (136-145); Troponin (Emerg Dept Use Only) < 0.02 ng/mL (0.0-0.045)
--- NOTE | 2019-09-11 11:38 | ER ---
Nurse's Notes [facility] Name: Jimmy Soto Age: 83 yrs Sex: Male : 1935 Arrival Date: 09/11/2019 Time: 07:55 Bed 8 Private MD: Cesar Mckenzie B Diagnosis: Dyspnea, unspecified;Unspecified combined systolic (congestive) and diastolic (congestive) heart failure;Anasarca Presentation: 09/11 07:55 Presenting complaint: EMS states: pts son called saying he was unconscious, we arrived tw2 and he was a\\T\\o x4, they were on there way to see Dr. Dale this morning, he is o2 dependent, walked from the house to the car without oxygen and his son said he passed out, vs stable for us BGL 264, his main complaint is his swollen testicles. Transition of care: patient was not received from another setting of care. Onset of symptoms was September 11, 2019. Risk Assessment: Do you want to hurt yourself or someone else? Patient reports no desire to harm self or others. Initial Sepsis Screen: Does the patient meet any 2 criteria? No. Patient's initial sepsis screen is negative. Does the patient have a suspected source of infection? No. Patient's initial sepsis screen is negative. Care prior to arrival: None. 07:55 Method Of Arrival: EMS: [facility] tw2 07:55 Acuity: ART 3 tw2 Triage Assessment: 08:02 General: Appears in no apparent distress. Behavior is calm, cooperative, appropriate tw2 for age. Pain: Complains of pain in testicles. Respiratory: Reports shortness of breath at rest on exertion Onset: The symptoms/episode began/occurred suddenly, the patient has mild shortness of breath. Historical: - Allergies: 07:58 No Known Allergies; tw2 - Home Meds: 08:01 bumetanide 1 mg Oral tab 1 tab 2 times per day [Active]; tamsulosin 0.4 mg Oral cp24 1 tw2 cap once daily [Active]; gabapentin 300 mg oral cap 1 cap once daily [Active]; carvedilol 25 mg oral tab 1 tab 2 times per day [Active]; Synthroid 25 mcg Oral tab 1 tab once daily [Active]; Januvia 50 mg oral tab 1 tabs once daily [Active]; hydralazine 10 mg Oral tab 2 tabs 2 times per day [Active]; pantoprazole 40 mg oral TbEC 1 tab once daily [Active]; atorvastatin 40 mg oral tab 1 tab once daily [Active]; - PMHx: 07:58 Diabetes - IDDM; Pneumonia; Hyperlipidemia; Cellulitis; Hypertension; tw2 - Immunization history:: Adult Immunizations. - Social history:: Smoking status: . - Ebola Screening: : Patient denies travel to an Ebola-affected area in the 21 days before illness onset. - Family history:: not pertinent. - Hospitalizations: : The patient was recently seen at [facility]. Screenin:03 Abuse screen: Denies threats or abuse. Nutritional screening: No deficits noted. tw2 Tuberculosis screening: No symptoms or risk factors identified. Fall Risk Secondary diagnosis (15 points) impaired mobility. Assessment: 07:58 Reassessment: provider at bedside at this time. tw2 08:03 General: Appears in no apparent distress. Behavior is calm, cooperative, appropriate tw2 for age. Neuro: Level of Consciousness is awake, alert, obeys commands, Oriented to person, place, time, situation. Cardiovascular: Heart tones S1 S2 Patient's skin is warm and dry. Rhythm is atrial fibrillation. Respiratory: Airway is patent Respiratory effort is even, unlabored, Respiratory pattern is regular, symmetrical, Breath sounds are clear bilaterally. GI: Abdomen is round noted to have ascites, Bowel sounds present X 4 quads. : Reports swollen testicles. EENT: No signs and/or symptoms were reported regarding the EENT system. Derm: Skin is intact, is healthy with good turgor, Reports "my legs are weeping and i have this wound on my foot" pts legs are wrapped with dressings at this time, he states home health comes daily to wrap him. Musculoskeletal: Range of motion: intact in all extremities. 09:19 Reassessment: Patient appears in no apparent distress at this time. No changes from tw2 previously documented assessment. Patient and/or family updated on plan of care and expected duration. Pain level reassessed. 10:40 Reassessment: Patient appears in no apparent distress at this time. No changes from tw2 previously documented assessment. Patient and/or family updated on plan of care and expected duration. Pain level reassessed. 11:53 Reassessment: Patient appears in no apparent distress at this time. No changes from tw2 previously documented assessment. Patient and/or family updated on plan of care and expected duration. Pain level reassessed. 13:00 Reassessment: Patient appears in no apparent distress at this time. Patient and/or ph family updated on plan of care and expected duration. Pain level reassessed. Patient is alert, oriented x 3, equal unlabored respirations, skin warm/dry/pink. 14:00 Reassessment: Patient appears in no apparent distress at this time. Patient and/or ph family updated on plan of care and expected duration. Pain level reassessed. Patient is alert, oriented x 3, equal unlabored respirations, skin warm/dry/pink. Report called to 4th floor, pt waiting to be taken to room, family at bedside. Vital Signs: 07:56 BP 133 / 58; Pulse 54; Resp 12; Temp 97.8(TE); Pulse Ox 94% on 4 lpm NC; Pain 8/10; tw2 08:02 Weight 122.4 kg (R); tw2 08:18 BP 123 / 55; Pulse 62; Resp 17; Pulse Ox 93% on 4 lpm NC; tw2 09:19 BP 141 / 67; Pulse 80; Resp 17; Pulse Ox 95% on 4 lpm NC; tw2 09:53 BP 126 / 61; Pulse 71; Resp 20; Pulse Ox 94% on 3 lpm NC; ph 10:40 BP 134 / 62; Pulse 66; Resp 17; Pulse Ox 95% on 4 lpm NC; tw2 11:53 BP 124 / 63; Pulse 62; Resp 17; Pulse Ox 96% on 4 lpm NC; tw2 13:00 BP 125 / 66; Pulse 60; Resp 15; Pulse Ox 96% on 4 lpm NC; tw2 14:11 BP 135 / 77; Pulse 61; Resp 14; Pulse Ox 96% 4 lpm ; tw2 ED Course: 07:55 Patient arrived in ED. rg4 07:55 Lesley Garduno, GENA is Primary Nurse. tw2 07:55 Cesar Mckenzie MD is Private Physician. rg4 07:55 Bed in low position. Call light in reach. Side rails up X2. awake overnight monitor on. Pulse tw2 ox on. NIBP on. 07:56 Jeremy Leos MD is Attending Physician. rn 07:56 Triage completed. tw2 07:57 Arm band placed on. tw2 08:13 Inserted saline lock: 20 gauge in right antecubital area, using aseptic technique. tw2 Blood collected. 08:44 Pickett cath inserted, using sterile technique, [address], balloon inflated, to tw2 gravity drainage, urine specimen collected. other Keerthi Grubbs and CATHYRN at bedside as national sales associate. 08:54 EKG done, by special effects technician. reviewed by Jeremy Leos MD. at1 09:03 Chest Single View In Process Unspecified. EDMS 11:35 Dewayne Luke is Hospitalizing Provider. rn 14:12 No provider procedures requiring assistance completed. Patient admitted, IV remains in tw2 place. intact. Administered Medications: 08:47 Drug: Bumex 1 mg Route: IVP; Site: right antecubital; tw2 14:39 Follow up: Response: No adverse reaction ph Output: 14:12 Urine: 650ml (Pickett); Total: 650ml. tw2 Outcome: 11:36 Decision to Hospitalize by Provider. rn 14:11 Admitted to Tele accompanied by keerthi, via stretcher, room 423, with oxygen, with chart, tw2 Report called to Karen AVERY 14:11 Condition: stable 14:11 Instructed on the need for admit. 14:40 Patient left the ED. ph Signatures: Dispatcher [employer] EDMS Jeremy Leos MD MD rn Gonzales, Amanda, associate professor of law EKG Tat1 Rose Leon RN RN Lesley West RN RN tw2 Kristy Drake rg4
--- NOTE | 2019-09-11 11:38 | EDPHYS ---
Physician Documentation [facility] Name: Jimmy Soto Age: 83 yrs Sex: Male : 1935 Arrival Date: 09/11/2019 Time: 07:55 Bed 8 Private MD: Cesar Mckenzie B ED Physician Jeremy Leos HPI: 09/11 08:08 This 83 yrs old Male presents to ER via EMS with complaints of Shortness Of rn Breath. 08:08 The patient has shortness of breath with light activity. Onset: The symptoms/episode rn began/occurred just prior to arrival. Duration: The symptoms are continuous. The patient's shortness of breath is aggravated by exertion, light activity, walking. Severity of symptoms: At their worst the symptoms were moderate in the emergency department the symptoms have improved. The patient has experienced similar episodes in the past. Reports increased swelling and dyspnea over last few days, admitted last week, dropped weight and fluid, now getting worse again, walking to car without oxygen, had syncopal episode, and son describes seizure like activity after passing out, put on oxygen and woke up, no CPR. Denies preceding chest pain/fever. . Historical: - Allergies: 07:58 No Known Allergies; tw2 - Home Meds: 08:01 bumetanide 1 mg Oral tab 1 tab 2 times per day [Active]; tamsulosin 0.4 mg Oral cp24 1 tw2 cap once daily [Active]; gabapentin 300 mg oral cap 1 cap once daily [Active]; carvedilol 25 mg oral tab 1 tab 2 times per day [Active]; Synthroid 25 mcg Oral tab 1 tab once daily [Active]; Januvia 50 mg oral tab 1 tabs once daily [Active]; hydralazine 10 mg Oral tab 2 tabs 2 times per day [Active]; pantoprazole 40 mg oral TbEC 1 tab once daily [Active]; atorvastatin 40 mg oral tab 1 tab once daily [Active]; - PMHx: 07:58 Diabetes - IDDM; Pneumonia; Hyperlipidemia; Cellulitis; Hypertension; tw2 - Immunization history:: Adult Immunizations. - Social history:: Smoking status: . - Ebola Screening: : Patient denies travel to an Ebola-affected area in the 21 days before illness onset. - Family history:: not pertinent. - Hospitalizations: : The patient was recently seen at [facility]. ROS: 08:08 Constitutional: Negative for fever, chills, and weight loss, Eyes: Negative for injury, rn pain, redness, and discharge, Neck: Negative for injury, pain, and swelling, Cardiovascular: Negative for chest pain, palpitations. + edema Respiratory: + sob Abdomen/GI: Negative for abdominal pain, nausea, vomiting, diarrhea, and constipation, MS/Extremity: Negative for injury and deformity, Skin: Negative for injury, rash, and discoloration, Neuro: Negative for headache, weakness, numbness, tingling, and seizure. Exam: 08:08 Constitutional: Overweight male no acute distress Head/Face: Normocephalic, rn atraumatic. ENT: dry MM, no stridor Cardiovascular: Irregular rhythm, regular rate Respiratory: + bibasilar crackles and diminished at bases Abdomen/GI: soft, non-tender, + mild pitting edema lower abd Male : Swollen but non-tender scrotum, no masses MS/ Extremity: Pulses equal, no cyanosis. 3+ pitting edema bilateral lower ext Neuro: Awake and alert, GCS 15 Vital Signs: 07:56 BP 133 / 58; Pulse 54; Resp 12; Temp 97.8(TE); Pulse Ox 94% on 4 lpm NC; Pain 8/10; tw2 08:02 Weight 122.4 kg (R); tw2 08:18 BP 123 / 55; Pulse 62; Resp 17; Pulse Ox 93% on 4 lpm NC; tw2 09:19 BP 141 / 67; Pulse 80; Resp 17; Pulse Ox 95% on 4 lpm NC; tw2 09:53 BP 126 / 61; Pulse 71; Resp 20; Pulse Ox 94% on 3 lpm NC; ph 10:40 BP 134 / 62; Pulse 66; Resp 17; Pulse Ox 95% on 4 lpm NC; tw2 11:53 BP 124 / 63; Pulse 62; Resp 17; Pulse Ox 96% on 4 lpm NC; tw2 13:00 BP 125 / 66; Pulse 60; Resp 15; Pulse Ox 96% on 4 lpm NC; tw2 14:11 BP 135 / 77; Pulse 61; Resp 14; Pulse Ox 96% 4 lpm ; tw2 MDM: 07:56 Patient medically screened. rn 11:33 Differential diagnosis: Bronchitis CHF exacerbation, Myocardial Infarction pneumonia, rn Pneumothorax pulmonary edema. Data reviewed: vital signs, nurses notes, lab test result(s), radiologic studies, plain films, and as a result, I will admit patient. Counseling: I had a detailed discussion with the patient and/or guardian regarding: the historical points, exam findings, and any diagnostic results supporting the discharge/admit diagnosis, lab results, radiology results, the need for further work-up and treatment in the hospital. Response to treatment: the patient's symptoms have mildly improved after treatment, and as a result, I will admit patient. Admission orders: after a detailed discussion of the patient's condition and case, the admit orders are written by me. ED course: Admitted to Dr. Luke for CHF exacerbation, CXR worse than last, still tachypneic. . 09/11 08:08 Order name: BMP 09/11 08:08 Order name: CBC with Diff 09/11 08:08 Order name: NT PRO-BNP 09/11 08:08 Order name: Troponin (emerg Dept Use Only) 09/11 08:30 Order name: CBC with Automated Diff; Complete Time: 08:48 EDMS 09/11 08:54 Order name: Urine Dipstick--Ancillary (enter results) 09/11 08:08 Order name: XRAY CXR (1 view) 09/11 08:08 Order name: EKG; Complete Time: 08:46 rn 09/11 09:03 Order name: Chest Single View; Complete Time: 10:43 EDMS 09/11 09:03 Order name: Basic Metabolic Panel; Complete Time: 10:43 EDTN 09/11 09:04 Order name: NT PRO-BNP; Complete Time: 10:43 EDMS 09/11 09:04 Order name: Troponin (Emerg Dept Use Only); Complete Time: 10:43 EDMS 09/11 09:18 Order name: Urine Dipstick-Ancillary; Complete Time: 10:43 EDMS 09/11 08:08 Order name: Cardiac monitoring; Complete Time: 08:09 rn 09/11 08:08 Order name: EKG - Nurse/Tech; Complete Time: 08:09 rn 09/11 08:08 Order name: IV Saline Lock; Complete Time: 08:18 rn 12/20 08:08 Order name: Labs collected and sent; Complete Time: 08:18 rn 09/11 08:08 Order name: O2 Per Protocol; Complete Time: 08:09 rn 09/11 08:08 Order name: O2 Sat Monitoring; Complete Time: 08:18 rn 09/11 08:18 Order name: Pickett; Complete Time: 08:44 tw2 Administered Medications: 08:47 Drug: Bumex 1 mg Route: IVP; Site: right antecubital; tw2 14:39 Follow up: Response: No adverse reaction ph Disposition: 09/11/19 11:36 Hospitalization ordered by Dewayne Luke for Inpatient Admission. Preliminary diagnosis are Dyspnea, unspecified, Unspecified combined systolic (congestive) and diastolic (congestive) heart failure, Anasarca. - Bed requested for Telemetry/MedSurg (Inpatient). - Status is Inpatient Admission. ph - Condition is Stable. - Problem is an ongoing problem. - Symptoms have improved. UTI on Admission? No Signatures: Dispatcher [employer] EDMS Jeremy Leos MD MD rn Hall, Patricia, RN RN Lesley Garduno RN RN [facility] Anastacia Sotelo Corrections: (The following items were deleted from the chart) 12:42 11:36 Hospitalization Ordered by Dewayne Luke for Inpatient Admission. Preliminary eb diagnosis is Dyspnea, unspecified; Unspecified combined systolic (congestive) and diastolic (congestive) heart failure; Anasarca. Bed requested for Telemetry/MedSurg (Inpatient). Status is Inpatient Admission. Condition is Stable. Problem is an ongoing problem. Symptoms have improved. UTI on Admission? No. rn 13:57 12:42 09/11/2019 11:36 Hospitalization Ordered by Dewayne Luke for Inpatient eb Admission. Preliminary diagnosis is Dyspnea, unspecified; Unspecified combined systolic (congestive) and diastolic (congestive) heart failure; Anasarca. Bed requested for Telemetry/MedSurg (Inpatient). Status is Inpatient Admission. Condition is Stable. Problem is an ongoing problem. Symptoms have improved. UTI on Admission? No. eb 14:40 13:57 09/11/2019 11:36 Hospitalization Ordered by Dewayne Luke for Inpatient ph Admission. Preliminary diagnosis is Dyspnea, unspecified; Unspecified combined systolic (congestive) and diastolic (congestive) heart failure; Anasarca. Bed requested for Telemetry/MedSurg (Inpatient). Status is Inpatient Admission. Condition is Stable. Problem is an ongoing problem. Symptoms have improved. UTI on Admission? No. eb
--- NOTE | 2019-09-11 13:39 | P.HP ---
Certification for Inpatient Patient admitted to: Inpatient With expected LOS: >2 Midnights Practitioner: I am a practitioner with admitting privileges, knowledge of patient current condition, hospital course, and medical plan of care. Services: Services provided to patient in accordance with Admission requirements found in Title 42 Section 412.3 of the Code of Federal Regulations Patient History Date of Service: 09/11/19 Reason for admission: Syncope History of Present Illness: 83-year-old morbidly obese gentleman with a history of obstructive sleep apnea, noncompliant with CPAP, history of chronic kidney disease stage 3, history anasarca on Bumex presented to the ED due to generalized weakness and increased body swelling. Family also reports the noted patient was not using the oxygen and he passed out momentarily. His mental status recovered after he was placed on oxygen. In the ED, patient noted to have anasarca, chest x-ray demonstrated volume overload. His oxygen saturations 93% on 4 L of oxygen by nasal cannula. Patient was sleeping during my examination and noted to have periods of apnea. He is admitted for further management of CHF exacerbation. Allergies No Known Allergies Allergy (Verified 01/19/18 04:44) Home Medications: Levothyroxine [Synthroid*] 50 mcg PO [id number] 05/20/19 Sitagliptin Phosphate [Januvia*] 50 mg PO DAILY 05/20/19 Tamsulosin HCl [Flomax] 0.4 mg PO DAILY 05/20/19 Atorvastatin Calcium [Lipitor] 40 mg PO BEDTIME #30 tab 09/04/19 Bumetanide [Bumex*] 1 mg PO BID #30 tab 09/04/19 Diphenhydramine [Benadryl*] 25 mg PO Q6H PRN #30 tab 09/04/19 Hydralazine [Apresoline*] 20 mg PO BID #30 tab 09/04/19 Hydrocortisone Cream [Hydrocortisone 0.5% Cream*] 1 appl TOP BID PRN #1 tube Pantoprazole [Protonix Tab*] 40 mg PO DAILY #30 tab 09/04/19 carvediloL [Coreg*] 25 mg PO BID #60 tab 09/04/19 predniSONE [Prednisone*] 40 mg PO DAILY #7 tab 09/04/19 - Past Medical/Surgical History Diabetic: Yes -: HTN -: high cholesterol -: copd -: asbestosis -: Mr ESPOSITO foot w/ cellulitis -: PE -: Obstructive sleep apnea -: Atrial flutter -: [place] wrist sx (fell off deer stand and broke both wrist) -: cataract Sx -: Right hip sx r/t fx - Family History Family History: Reviewed- Non-Contributory - Family History Mother Notes: denies having family history of illness Father Notes: denies having family history of illness Sister Notes: denies having family history of illness Brother Notes: denies having family history of illness - Social History Alcohol use: No CD- Drugs: No Caffeine use: Yes Review of Systems Other: General: No fever, no malaise. Eyes: No eye discharge, Respiratory: No cough. No wheezing. CVS: No chest pain, no palpitation, no lightheadedness. GI: No abdominal pain, no nausea no vomit, no constipation, no diarrhea. Genitourinary: No dysuria, no urinary frequency, no incontinence, no hematuria. Musculoskeletal: No joint pains, or joint swelling. Neurology: No headache, no asymmetric weakness, no problem with swallowing. Except as documented, all other systems reviewed and negative. Physical Examination - Physical Exam General: In no apparent distress, Oriented x3, Obese HEENT: Mucous membr. moist/pink, EOMI, Sclerae nonicteric Neck: Supple, JVD not distended Respiratory: Diminished, Crackles/rales (Bibasilar rales) Cardiovascular: Regular rate/rhythm, Normal S1 S2, Edema (2+ bilateral lower extremity edema) Gastrointestinal: Soft and benign, Non-distended, Other (Abdominal wall edema), Tenderness Musculoskeletal: Swelling, Other (Bilateral lower extremity edema) Integumentary: Other (Bilateral lower extremity venostasis dermatitis/ulcers) - Studies Laboratory Data (last 24 hrs) 09/11/19 08:12: Sodium 138, Potassium 4.2, BUN 49 H, Creatinine 1.56 H, Glucose 277 H 09/11/19 08:12: WBC 9.5 D, Hgb 9.6 L, Hct 30.2 L, Plt Count 131 L Assessment and Plan - Problems (Diagnosis) (1) 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 Current Visit: Yes Status: Acute (2) Anasarca Current Visit: Yes Status: Acute (3) Syncope Current Visit: Yes Status: Acute (4) Cor pulmonale (chronic) Current Visit: Yes Status: Acute (5) Venous stasis of lower extremity Current Visit: Yes Status: Acute (6) Venous stasis dermatitis Current Visit: Yes Status: Acute (7) Atrial fibrillation Current Visit: No Status: Chronic Qualifiers: Atrial fibrillation type: unspecified Qualified Code(s): I48.91 - Unspecified atrial fibrillation (8) Chronic kidney disease, stage 3 Current Visit: Yes Status: Acute - Plan Admit to the medical floor. Obtain carotid Doppler. The patient has a recent echocardiogram which reported normal EF. I suspect syncope is secondary to hypoxia. Anasarca is likely secondary to cor pulmonale and pulmonary hypertension given history of severe sleep apnea and noncompliance with CPAP. Will diurese with IV Bumex. Will watch renal function closely with the diuresis. Consulted nephrology to assist with management Titrate oxygen Daily weight Strict input and output Pickett catheter in. Blood pressure control. - Advance Directives Does patient have a Living Will: No Does patient have a Durable POA for Healthcare: Yes
[2019-09-11] MEDS: IPRATROPIUM BROM 0.5MG/2.5ML NEB SCH ×2 (15:32→19:40)
[2019-09-11] MEDS ORDERED: ONDANSETRON 4 MG/2 ML VIAL IV PRN (15:32)
[2019-09-11] MEDS: ALBUTEROL 2.5 MG/3 ML NEB SOL NEB SCH ×2 (15:32→19:40)
--- NOTE | 2019-09-11 16:35 | EKG ---
Test Date: 2019-09-11 Test Time: 08:06:45 Cook Barbecue: JESSE MEASUREMENT RESULTS: Intervals: Rate: 66 ID: [id number] QT: 432 QTc: 452 [place]: P: ID: [id number] T: -51 INTERPRETIVE STATEMENTS: Atrial fibrillation Nonspecific T wave abnormality, probably digitalis effect Abnormal ECG Compared to ECG 09/09/2019 12:33:52 T-wave abnormality now present Sinus bradycardia no longer present First degree AV block no longer present Right-axis deviation no longer present ST (T wave) deviation no longer present Possible ischemia no longer present Electronically Signed On 09-11-19 16:33:58 FOUNDATION ASSISTANT by Shaquille Gagnon
[2019-09-11 16:44] LABS: Arterial Blood Carboxyhemoglob 2.2 % (0-1.5); Blood Gas Oxyhemoglobin 90.5 % (94-97)
[2019-09-11] MEDS: ENOXAPARIN 30 MG/0.3 ML SQ SCH (17:32)
[2019-09-11] MEDS: BUMETANIDE 1 MG/4 ML VIAL IV SCH (21:19)
[2019-09-12] MEDS: ALBUTEROL 2.5 MG/3 ML NEB SOL NEB SCH ×4 (01:20→19:35)
[2019-09-12] MEDS: IPRATROPIUM BROM 0.5MG/2.5ML NEB SCH ×4 (01:20→19:35)
[2019-09-12] MEDS: DIPHENHYDRAMINE 50 MG/ML VIAL IV PRN ×3 (01:36→16:39)
[2019-09-12 06:23] LABS: Basophils % 0.7 % (0-1.3); Hematocrit 29.9 % (39.6-49.0); Lymphocytes % 11.1 % (15.3-44.8); MPV 8.2 fL (7.6-11.3); RBC Red Blood Cell Count 3.37 M/uL (4.33-5.43)
[2019-09-12 06:47] LABS: Magnesium 1.9 mg/dL (1.8-2.4); Phosphorus 2.7 mg/dL (2.5-4.9); Potassium 3.9 mmol/L (3.5-5.1)
[2019-09-12] MEDS: BUMETANIDE 1 MG/4 ML VIAL IV SCH ×2 (08:38→20:38)
[2019-09-12] MEDS: COLLAGENASE 30 GM OINTMENT TOP SCH (08:39)
[2019-09-12] MEDS: ENOXAPARIN 30 MG/0.3 ML SQ SCH (08:40)
--- NOTE | 2019-09-12 12:02 | P.PN ---
Subjective Date of Service: 09/12/19 Chief Complaint: Syncope Subjective: No new changes Patient's leg edema is better. He had an uneventful night. Physical Examination - Vital Signs Temperature: 97.5 F Blood Pressure: 128/61 Pulse: 64 Respirations: 18 Pulse Ox (%): 91 - Physical Exam General: In no apparent distress, Oriented x3, Obese HEENT: Mucous membr. moist/pink Neck: JVD not distended Respiratory: Clear to auscultation bilaterally, Diminished Cardiovascular: Regular rate/rhythm, Normal S1 S2, Edema (Bilateral lower extremities) Gastrointestinal: Soft and benign, No tenderness Musculoskeletal: Erythema (Bilateral lower extremities) Integumentary: Other (Chronic ulcer with hard eschar on the tip of the left great toe.) Neurological: Normal speech, Normal strength at 5/5 x4 extr - Studies Laboratory Data (last 24 hrs) 09/11/19 08:08: WBC Cancelled, Hgb Cancelled, Hct Cancelled, Plt Count Cancelled 09/11/19 08:08: Sodium Cancelled, Potassium Cancelled, BUN Cancelled, Creatinine Cancelled, Glucose Cancelled Assessment And Plan - Current Problems (Diagnosis) (1) 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 Current Visit: Yes Status: Acute (2) Anasarca Current Visit: Yes Status: Acute (3) Syncope Current Visit: Yes Status: Acute (4) Cor pulmonale (chronic) Current Visit: Yes Status: Acute (5) Venous stasis of lower extremity Current Visit: Yes Status: Acute (6) Venous stasis dermatitis Current Visit: Yes Status: Acute (7) Atrial fibrillation Current Visit: No Status: Chronic Qualifiers: Atrial fibrillation type: unspecified Qualified Code(s): I48.91 - Unspecified atrial fibrillation (8) Chronic kidney disease, stage 3 Current Visit: Yes Status: Acute - Plan The patient had a recent echocardiogram which reported normal EF. Anasarca is likely secondary to cor pulmonale and pulmonary hypertension given history of severe sleep apnea and noncompliance with CPAP. Continue diuresis with IV Bumex. Will watch renal function closely with the diuresis. Awaiting nephrology input Titrate oxygen Daily weight Strict input and output Pickett catheter is in place. Blood pressure control. CPAP at night if patient will tolerate it.
--- NOTE | 2019-09-12 13:29 | P.CNS ---
Date of Consult: 09/12/19 Reason for Consult: CKD, fluid overload Chief Complaint: Syncope History of Present Illness: An 83-year-old gentleman, with PMhx of HTN, HLD, CKD 3, CHF<, COPD, pulmonary HTN pt was recently discharged from the hospital after he was admitted for fluid overload pt presented with Edema and SOB, noticed to have O2 sat <95% , non compliant with o2 last admission pt was off lasix due to skin rash , he was started on Bumex and his edema significantly improved pt is not sure if he was taking meds at time Denied chest pain, palpitation , nausea, vomiting diarrhea, fever, chills or headache or blurry vision Allergies No Known Allergies Allergy (Verified 01/19/18 04:44) Home medications list reviewed: Yes Home Medications: Levothyroxine [Synthroid*] 25 mcg PO [id number] 05/20/19 Sitagliptin Phosphate [Januvia*] 50 mg PO DAILY 05/20/19 Tamsulosin HCl [Flomax] 0.4 mg PO DAILY 05/20/19 Atorvastatin Calcium [Lipitor] 40 mg PO BEDTIME #30 tab 09/04/19 Bumetanide [Bumex*] 1 mg PO BID #30 tab 09/04/19 Diphenhydramine [Benadryl*] 25 mg PO Q6H PRN #30 tab 09/04/19 Hydralazine [Apresoline*] 20 mg PO BID #30 tab 09/04/19 Pantoprazole [Protonix Tab*] 40 mg PO DAILY #30 tab 09/04/19 carvediloL [Coreg*] 25 mg PO BID #60 tab 09/04/19 Gabapentin [Gralise] 300 mg PO DAILY 09/11/19 - Past Medical/Surgical History Diabetic: Yes -: HTN -: high cholesterol -: copd -: asbestosis -: Mr SA foot w/ cellulitis -: PE -: Obstructive sleep apnea -: Atrial flutter -: Rosalino wrist sx (fell off deer stand and broke both wrist) -: cataract Sx -: Right hip sx r/t fx - Family History Mother Notes: denies having family history of illness Father Notes: denies having family history of illness Sister Notes: denies having family history of illness Brother Notes: denies having family history of illness - Social History Smoking Status: Unknown if ever smoked Alcohol use: No CD- Drugs: No Caffeine use: Yes Place of Residence: Home Review of Systems General: Unremarkable Eyes: Unremarkable Respiratory: Shortness of Breath Cardiovascular: Unremarkable Gastrointestinal: Unremarkable Genitourinary: Unremarkable Musculoskeletal: Unremarkable Physical Examination Temp Pulse Resp BP Pulse Ox 97.5 F 64 18 128/61 91 09/12/19 12:02 09/12/19 12:02 09/12/19 12:02 09/12/19 12:02 09/12/19 12:02 General: Oriented x3, Mild distress HEENT: Atraumatic, EOMI Neck: Supple, Without JVD or thyroid abnormality Respiratory: Diminished Cardiovascular: Regular rate/rhythm, Normal S1 S2, No gallops, No rubs, No murmurs, Edema Gastrointestinal: Normal bowel sounds, Soft and benign, Non-distended, No ascites, No tenderness, No masses Musculoskeletal: Swelling Laboratory Data (last 24 hrs) 09/11/19 08:08: WBC Cancelled, Hgb Cancelled, Hct Cancelled, Plt Count Cancelled 09/11/19 08:08: Sodium Cancelled, Potassium Cancelled, BUN Cancelled, Creatinine Cancelled, Glucose Cancelled Conclusions/Impression: 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
[2019-09-13] MEDS: DIPHENHYDRAMINE 50 MG/ML VIAL IV PRN ×2 (00:47→08:24)
[2019-09-13] MEDS: ALBUTEROL 2.5 MG/3 ML NEB SOL NEB SCH ×4 (02:10→19:15)
[2019-09-13] MEDS: IPRATROPIUM BROM 0.5MG/2.5ML NEB SCH ×4 (02:10→19:15)
[2019-09-13 06:25] LABS: Phosphorus 2.4 mg/dL (2.5-4.9); Potassium 4.1 mmol/L (3.5-5.1)
[2019-09-13] MEDS: ENOXAPARIN 30 MG/0.3 ML SQ SCH (08:25)
[2019-09-13] MEDS: BUMETANIDE 1 MG/4 ML VIAL IV SCH ×2 (08:25→20:38)
[2019-09-13] MEDS: POTASS/SODIUM PHOSPHATE 1 PKT POWD.PACK PO SCH ×3 (08:26→10:59)
[2019-09-13] MEDS: COLLAGENASE 30 GM OINTMENT TOP SCH (08:27)
--- NOTE | 2019-09-13 10:32 | P.PN ---
Subjective Date of Service: 09/13/19 Chief Complaint: Syncope Subjective: Improving pw ith CKD, CHF an COPD admitted for SOB was discharged on Bumex 1gm Po daily pt responded significantly to 1gm of Bumex IV Bid today complaining of itching UO >4liters last 24hrs RFT stable pt stated he was taking bumex at home, possbly he didint respond to PO dose due poor absorption vs Compliance? can be discharged tomorrow from nephrology point of view on Bumex 2mg Bid - Past Medical/Surgical History Diabetic: Yes -: HTN -: high cholesterol -: copd -: asbestosis -: Mr ESPOSITO foot w/ cellulitis -: PE -: Obstructive sleep apnea -: Atrial flutter -: Rosalino wrist sx (fell off deer stand and broke both wrist) -: cataract Sx -: Right hip sx r/t fx - Family History Mother Notes: denies having family history of illness Father Notes: denies having family history of illness Sister Notes: denies having family history of illness Brother Notes: denies having family history of illness - Social History Smoking Status: Unknown if ever smoked Alcohol use: No CD- Drugs: No Caffeine use: Yes Place of Residence: Home Physical exam General: Oriented x3, Mild distress HEENT: Atraumatic, EOMI Neck: Supple, Without JVD or thyroid abnormality Respiratory: Diminished Cardiovascular: Regular rate/rhythm, Normal S1 S2, No gallops, No rubs, No murmurs, Edema Gastrointestinal: Normal bowel sounds, Soft and benign, Non-distended, No ascites, No tenderness, No masses Musculoskeletal: Swelling, edema +1 , chronic venous changes Conclusions/Impression: 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 can be discharged tomorrow from nephrology point of view on Bumex 2mg Bid urinary retention will Keep Pickett DM as per primary HTN controlled cont home meds edema improving Cont bumex daily wt I/o salt and fluid restriction Physical Examination - Vital Signs Temperature: 96.9 F Blood Pressure: 146/63 Pulse: 89 Respirations: 16 Pulse Ox (%): 16
[2019-09-13] MEDS ORDERED: DIPHENHYDRAMINE 25 MG TAB/CAP PO PRN (11:23)
--- NOTE | 2019-09-13 11:23 | P.PN ---
Subjective Date of Service: 09/13/19 Chief Complaint: Syncope Patient is diuresing well. He put out about 4 L of urine for the past 24hrs. He is complaining of generalized body itch. His leg edema have significantly improved. Physical Examination - Vital Signs Temperature: 96.9 F Blood Pressure: 146/63 Pulse: 89 Respirations: 16 Pulse Ox (%): 16 - Physical Exam General: Alert, In no apparent distress, Oriented x3 HEENT: Mucous membr. 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 Current Visit: Yes Status: Acute (2) Anasarca Current Visit: Yes Status: Acute (3) Syncope Current Visit: Yes Status: Acute (4) Cor pulmonale (chronic) Current Visit: Yes Status: Acute (5) Venous stasis of lower extremity Current Visit: Yes Status: Chronic (6) Venous stasis dermatitis Current Visit: Yes Status: Chronic (7) Atrial fibrillation Current Visit: No Status: Chronic Qualifiers: Atrial fibrillation type: unspecified Qualified Code(s): I48.91 - Unspecified atrial fibrillation (8) Chronic kidney disease, stage 3 Current Visit: Yes Status: Chronic - Plan The patient had a recent echocardiogram which reported normal EF. Anasarca is likely secondary to cor pulmonale and pulmonary hypertension given history of severe sleep apnea and noncompliance with CPAP. Nephrology is assisting with management. Continue diuresis with IV Bumex. Serum creatinine is stable with the IV Bumex Titrate oxygen Daily weight Strict input and output Pickett catheter is in place. Blood pressure control. CPAP at night if patient will tolerate it.
[2019-09-13] MEDS: GABAPENTIN 300 MG CAP PO SCH (12:01)
[2019-09-13] MEDS: HYDRALAZINE HCL 10 MG TABLET PO SCH (20:37)
[2019-09-13] MEDS: carvediloL 25 MG TAB PO SCH (20:37)
[2019-09-13] MEDS: ATORVASTATIN 40 MG TAB PO SCH (20:37)
[2019-09-14] MEDS: DIPHENHYDRAMINE 50 MG/ML VIAL IV PRN ×3 (00:27→16:47)
[2019-09-14] MEDS: IPRATROPIUM BROM 0.5MG/2.5ML NEB SCH ×4 (01:15→19:40)
[2019-09-14] MEDS: ALBUTEROL 2.5 MG/3 ML NEB SOL NEB SCH ×4 (01:15→19:40)
[2019-09-14 04:24] LABS: Magnesium 1.9 mg/dL (1.8-2.4); Phosphorus 3.3 mg/dL (2.5-4.9); Potassium 4.1 mmol/L (3.5-5.1)
[2019-09-14] MEDS: LEVOTHYROXINE SOD 0.025 MG TAB PO SCH (06:04)
[2019-09-14] MEDS: ENOXAPARIN 30 MG/0.3 ML SQ SCH (08:49)
[2019-09-14] MEDS: GABAPENTIN 300 MG CAP PO SCH (08:49)
[2019-09-14] MEDS: carvediloL 25 MG TAB PO SCH ×2 (08:50→20:29)
[2019-09-14] MEDS: SITAGLIPTIN PHOS 100 MG TAB PO SCH (08:50)
[2019-09-14] MEDS: TAMSULOSIN 0.4 MG SR CAP PO SCH (08:50)
[2019-09-14] MEDS: HYDRALAZINE HCL 10 MG TABLET PO SCH ×2 (08:50→20:29)
[2019-09-14] MEDS: PANTOPRAZOLE 40MG TABLET PO SCH (08:50)
[2019-09-14] MEDS: BUMETANIDE 1 MG/4 ML VIAL IV SCH (08:51)
[2019-09-14] MEDS: COLLAGENASE 30 GM OINTMENT TOP SCH (08:52)
[2019-09-14] MEDS ORDERED: HOME MED 1 EA UNK (Gabapentin [Gralise] 300 MG) PO SCH (09:00)
--- NOTE | 2019-09-14 14:35 | P.PN ---
Subjective Date of Service: 09/14/19 Chief Complaint: Syncope Patient is diuresing well. He put out about 3L of urine for the past 24hrs. He is still complaining of generalized body itch. His leg edema have significantly improved. He still has significant edema in the trunk area. Physical Examination - Vital Signs Temperature: 97.0 F Blood Pressure: 140/63 Pulse: 67 Respirations: 16 Pulse Ox (%): 93 - Physical Exam General: Alert, In no apparent distress HEENT: Mucous membr. moist/pink Neck: JVD not distended Respiratory: Clear to auscultation bilaterally, Diminished Cardiovascular: Normal S1 S2, Edema (Bilateral lower extremity, anterior abdominal wall.), Irregular heart rate/rhythm Gastrointestinal: Soft and benign, No tenderness Integumentary: Erythema (Bilateral lower extremities) Neurological: Normal speech, Normal strength at 5/5 x4 extr Assessment And Plan - Current Problems (Diagnosis) (1) 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 Current Visit: Yes Status: Acute (2) Anasarca Current Visit: Yes Status: Acute (3) Syncope Current Visit: Yes Status: Acute (4) Cor pulmonale (chronic) Current Visit: Yes Status: Chronic (5) Venous stasis of lower extremity Current Visit: Yes Status: Chronic (6) Venous stasis dermatitis Current Visit: Yes Status: Chronic (7) Atrial fibrillation Current Visit: No Status: Chronic Qualifiers: Atrial fibrillation type: unspecified Qualified Code(s): I48.91 - Unspecified atrial fibrillation (8) Chronic kidney disease, stage 3 Current Visit: Yes Status: Chronic - Plan Continue diuresis with IV Bumex. Serum creatinine is stable with the IV Bumex Titrate oxygen Daily weight Strict input and output Pickett catheter is in place. Blood pressure control. CPAP at night if patient will tolerate it. Oil based skin lotion to curb dry skin and itching.
--- NOTE | 2019-09-14 15:24 | P.PN ---
Subjective Date of Service: 09/14/19 Chief Complaint: Syncope Subjective: No new changes pw ith CKD, CHF an COPD admitted for SOB was discharged on Bumex 1gm Po daily pt responded significantly to 1gm of Bumex IV Bid today complaining of itching edema much improved RFT stable will hold bumex today can be discharged tomorrow from nephrology point of view , to be discharged on Bumex 2mg po Bid F/u with nephrology clinic in 2-3 wks - Past Medical/Surgical History Diabetic: Yes -: HTN -: high cholesterol -: copd -: asbestosis -: Mr SA foot w/ cellulitis -: PE -: Obstructive sleep apnea -: Atrial flutter -: Rosalino wrist sx (fell off deer stand and broke both wrist) -: cataract Sx -: Right hip sx r/t fx - Family History Mother Notes: denies having family history of illness Father Notes: denies having family history of illness Sister Notes: denies having family history of illness Brother Notes: denies having family history of illness - Social History Smoking Status: Unknown if ever smoked Alcohol use: No CD- Drugs: No Caffeine use: Yes Place of Residence: Home Physical exam General: Oriented x3, Mild distress HEENT: Atraumatic, EOMI Neck: Supple, Without JVD or thyroid abnormality Respiratory: Diminished Cardiovascular: Regular rate/rhythm, Normal S1 S2, No gallops, No rubs, No murmurs, Edema Gastrointestinal: Normal bowel sounds, Soft and benign, Non-distended, No ascites, No tenderness, No masses Musculoskeletal: Swelling, edema +1 , chronic venous changes and skin peeling Conclusions/Impression: CKD III due to catdiorenal syndrome edema much improved now, facial edema resolved Excellent UO improved on iv Bumex pt stated he was taking bumex at home, possbly he didint respond to PO dose due poor absorption vs Compliance? can be discharged tomorrow from nephrology point of view on Bumex 2mg Bid urinary retention will Keep Pickett DM as per primary HTN controlled cont home meds edema improving Cont bumex daily wt I/o salt and fluid restriction can be discharged tomorrow from nephrology point of view on Bumex 2mg Bid Physical Examination - Vital Signs Temperature: 97.0 F Blood Pressure: 140/63 Pulse: 67 Respirations: 16 Pulse Ox (%): 93
[2019-09-14] MEDS: ATORVASTATIN 40 MG TAB PO SCH (20:29)
--- NOTE | 2019-09-14 20:49 | EKG ---
Test Date: 2019-09-13 Test Time: 05:29:11 Lubrication Supervisor: RT-O MEASUREMENT RESULTS: Intervals: Rate: 66 HI: QRSD: 92 QT: 366 QTc: 383 [place]: P: HI: QRS: 83 T: 10 INTERPRETIVE STATEMENTS: Atrial fibrillation Nonspecific ST and T wave abnormality, probably digitalis effect Abnormal ECG Compared to ECG 09/11/2019 08:06:45 ST (T wave) deviation now present T-wave abnormality no longer present Electronically Signed On 09-14-19 20:46:53 ENVIRONMENTAL HEALTH AND SAFETY LEADER by Shaquille Gagnon
[2019-09-15] MEDS: IPRATROPIUM BROM 0.5MG/2.5ML NEB SCH ×3 (01:35→13:28)
[2019-09-15] MEDS: ALBUTEROL 2.5 MG/3 ML NEB SOL NEB SCH ×3 (01:35→13:28)
[2019-09-15 04:57] LABS: Absolute Lymphocytes (CBC) 0.8 K/uL (0.7-4.9); Basophils % 0.9 % (0-1.3); Hematocrit 32.5 % (39.6-49.0); Lymphocytes % 9.4 % (15.3-44.8); MPV 8.4 fL (7.6-11.3); RBC Red Blood Cell Count 3.66 M/uL (4.33-5.43)
[2019-09-15 04:59] LABS: Potassium 4.7 mmol/L (3.5-5.1)
[2019-09-15 05:05] VITALS: BMI 39.7
[2019-09-15 05:40] LABS: Blood Morphology Comment NOT SEEN (NOT SEEN); Platelet Estimate ADEQ
[2019-09-15] MEDS: LEVOTHYROXINE SOD 0.025 MG TAB PO SCH (06:10)
[2019-09-15] MEDS: HYDRALAZINE HCL 10 MG TABLET PO SCH (09:32)
[2019-09-15] MEDS: PANTOPRAZOLE 40MG TABLET PO SCH (09:32)
[2019-09-15] MEDS: ENOXAPARIN 30 MG/0.3 ML SQ SCH (09:32)
[2019-09-15] MEDS: GABAPENTIN 300 MG CAP PO SCH (09:32)
[2019-09-15] MEDS: TAMSULOSIN 0.4 MG SR CAP PO SCH (09:32)
[2019-09-15] MEDS: SITAGLIPTIN PHOS 100 MG TAB PO SCH (09:32)
[2019-09-15] MEDS: carvediloL 25 MG TAB PO SCH (09:32)
[2019-09-15] MEDS: COLLAGENASE 30 GM OINTMENT TOP SCH (12:07)
--- NOTE | 2019-09-15 14:07 | P.DS ---
Admission Date: 09/11/19 Discharge Date: 09/15/19 Disposition: DC HOME/HOME HEALTH CARE Discharge Condition: FAIR Reason for Admission: Syncope Consultations: Nephrology - Problems (1) 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 Current Visit: Yes Status: Acute (2) Anasarca Current Visit: Yes Status: Acute (3) Syncope Current Visit: Yes Status: Acute (4) Cor pulmonale (chronic) Current Visit: Yes Status: Chronic (5) Venous stasis of lower extremity Current Visit: Yes Status: Chronic (6) Venous stasis dermatitis Current Visit: Yes Status: Chronic (7) Atrial fibrillation Current Visit: No Status: Chronic Qualifiers: Atrial fibrillation type: unspecified Qualified Code(s): I48.91 - Unspecified atrial fibrillation (8) Chronic kidney disease, stage 3 Current Visit: Yes Status: Chronic Brief History of Present Illness: 83-year-old morbidly obese gentleman with a history of obstructive sleep apnea, noncompliant with CPAP, history of chronic kidney disease stage 3, history anasarca on Bumex presented to the ED due to generalized weakness and increased body swelling. Family also reports the noted patient was not using the oxygen and he passed out momentarily. His mental status recovered after he was placed on oxygen. In the ED, patient noted to have anasarca, chest x-ray demonstrated volume overload. His oxygen saturations 93% on 4 L of oxygen by nasal cannula. Patient was sleeping during my examination and noted to have periods of apnea. He was admitted for further management of CHF exacerbation. Hospital Course: Patient was admitted to the medical floor and aggressively diuresed with IV Bumex. The patient responded well with significant urine output per day. His leg edema, penile edema and generalized edema improved significantly with diuresis. Patient was maintained on oxygen by nasal cannula. He complained of itching but no rash. He attributes that the itching to dry skin and sweats. Patient was advised to use oil based lotion to curb dry skin and itching. There was a concern possible sulfa allergy the patient mentioned he was still itching when his Lasix was changed to Ethacrynic acid. The patient's edema has significantly improved. Nephrology assisted with fluid management and recommend increasing his home Bumex dose to 2 mg b.i.d. His renal function was stable with diuresis. Patient is therefore discharged with Bumex 2 mg b.i.d. Strong recommendation to start using CPAP was given. He is also advised to use oxygen all the time. Vital Signs/Physical Exam: Temp Pulse Resp BP Pulse Ox 98.4 F 85 16 140/59 L 93 09/15/19 04:00 09/15/19 09:32 09/15/19 04:00 09/15/19 09:32 09/15/19 04:00 General: Alert, In no apparent distress, Oriented x3 HEENT: Mucous membr. moist/pink Neck: JVD not distended Respiratory: Clear to auscultation bilaterally, Diminished Cardiovascular: Regular rate/rhythm, Normal S1 S2, Edema (Bilateral lower extremities and anterior abdominal wall.) Gastrointestinal: Soft and benign, No tenderness Musculoskeletal: Erythema (Bilateral lower extremities) Integumentary: Erythema (Bilateral lower extremities) Neurological: Normal speech, Normal strength at 5/5 x4 extr External genitalia: Edema (Scrotal and penile edema have improved.) Laboratory Data at Discharge: WBC 8.5 K/uL (4.3-10.9) 09/15/19 04:22 Hgb 10.1 g/dL (13.6-17.9) L 09/15/19 04:22 Hct 32.5 % (39.6-49.0) L 09/15/19 04:22 Plt Count 116 K/uL (152-406) L 09/15/19 04:22 Sodium 140 mmol/L (136-145) 09/15/19 04:22 Potassium 4.7 mmol/L (3.5-5.1) 09/15/19 04:22 BUN 23 mg/dL (7-18) H 09/15/19 04:22 Creatinine 0.98 mg/dL (0.55-1.3) 09/15/19 04:22 Glucose 154 mg/dL (74-106) H 09/15/19 04:22 Phosphorus 3.3 mg/dL (2.5-4.9) 09/14/19 03:32 Magnesium 1.9 mg/dL (1.8-2.4) 09/14/19 03:32 Home Medications: Levothyroxine [Synthroid*] 25 mcg PO [id number] 05/20/19 Sitagliptin Phosphate [Januvia*] 50 mg PO DAILY 05/20/19 Tamsulosin HCl [Flomax] 0.4 mg PO DAILY 05/20/19 Atorvastatin Calcium [Lipitor] 40 mg PO BEDTIME #30 tab 09/04/19 Diphenhydramine [Benadryl*] 25 mg PO Q6H PRN #30 tab 09/04/19 Hydralazine [Apresoline*] 20 mg PO BID #30 tab 09/04/19 Pantoprazole [Protonix Tab*] 40 mg PO DAILY #30 tab 09/04/19 carvediloL [Coreg*] 25 mg PO BID #60 tab 09/04/19 Gabapentin [Gralise] 300 mg PO DAILY 09/11/19 Albuterol Neb [Proventil 0.083% Neb Soln] 2.5 mg NEB [id number] #120 amp 09/15/19 Bumetanide [Bumex*] 2 mg PO BID #60 tab 09/15/19 Collagenase [Santyl Ointment*] 1 appl TOP DAILY #1 tube 09/15/19 Ipratropium Neb [Atrovent*] 0.5 mg NEB [id number] #120 amp 09/15/19 New Medications: Albuterol Neb [Proventil 0.083% Neb Soln] 2.5 mg NEB [id number] #120 amp Ipratropium Neb [Atrovent*] 0.5 mg NEB [id number] #120 amp Bumetanide [Bumex*] 2 mg PO BID #60 tab Collagenase [Santyl Ointment*] 1 appl TOP DAILY #1 tube Patient Discharge Instructions: Patient encouraged to use CPAP. Diet: AHA Activity: Fall precautions Followup: Jitendra Villanueva MD [ACTIVE - CAN ADMIT] - 1-2 Weeks Time spent managing pt's care (in minutes): 42
[2019-09-15 14:11] VITALS: BP 114/57
[2019-09-15 14:17] VITALS: TEMP 96.9
[2019-09-15 14:30] VITALS: O2SAT 98
--- NOTE | 2019-09-15 15:57 | P.PN ---
Subjective Date of Service: 09/15/19 Chief Complaint: Syncope Subjective: Improving pw ith CKD, CHF an COPD admitted for SOB was discharged on Bumex 1gm Po daily pt responded significantly to 1gm of Bumex IV Bid today complaining of itching edema much improved RFT stable can be discharged tomorrow from nephrology point of view , to be discharged on Bumex 2mg po Bid F/u with nephrology clinic in 2-3 wks - Past Medical/Surgical History Diabetic: Yes -: HTN -: high cholesterol -: copd -: asbestosis -: Mr SA foot w/ cellulitis -: PE -: Obstructive sleep apnea -: Atrial flutter -: Rosalino wrist sx (fell off deer stand and broke both wrist) -: cataract Sx -: Right hip sx r/t fx - Family History Mother Notes: denies having family history of illness Father Notes: denies having family history of illness Sister Notes: denies having family history of illness Brother Notes: denies having family history of illness - Social History Smoking Status: Unknown if ever smoked Alcohol use: No CD- Drugs: No Caffeine use: Yes Place of Residence: Home Physical exam General: Oriented x3, Mild distress HEENT: Atraumatic, EOMI Neck: Supple, Without JVD or thyroid abnormality Respiratory: Diminished Cardiovascular: Regular rate/rhythm, Normal S1 S2, No gallops, No rubs, No murmurs, Edema Gastrointestinal: Normal bowel sounds, Soft and benign, Non-distended, No ascites, No tenderness, No masses Musculoskeletal: Swelling, edema +1 , chronic venous changes and skin peeling Conclusions/Impression: CKD III due to catdiorenal syndrome edema much improved now, facial edema resolved Excellent UO improved on iv Bumex pt stated he was taking bumex at home, possbly he didint respond to PO dose due poor absorption vs Compliance? can be discharged tomorrow from nephrology point of view on Bumex 2mg Bid urinary retention will Keep Pickett DM as per primary HTN controlled cont home meds edema improving Cont bumex daily wt I/o salt and fluid restriction can be discharged tomorrow from nephrology point of view on Bumex 2mg Bid Physical Examination - Vital Signs Temperature: 96.9 F Blood Pressure: 114/57 Pulse: 65 Respirations: 18 Pulse Ox (%): 95
== END 2019-09-15 15:44 | disposition home health service (06) | DRG 291 ==
LOC: ER 07:49 → ERHOLD 13:05 → 4TH 14:09 → 2ND 09-14 15:27
PROVIDERS: ADMIT Internal Medicine; ATTEND Internal Medicine
DX: I13.0 Hypertensive heart and chronic kidney disease with heart failure and stage 1 through stage 4 chronic kidney disease, or unspecified chronic kidney disease (principal); I50.33 Acute on chronic diastolic (congestive) heart failure; I26.09 Other pulmonary embolism with acute cor pulmonale; I48.20 Chronic atrial fibrillation, unspecified; N18.3 Chronic kidney disease, stage 3 (moderate); I87.2 Venous insufficiency (chronic) (peripheral); E66.01 Morbid (severe) obesity due to excess calories; G47.33 Obstructive sleep apnea (adult) (pediatric); E78.5 Hyperlipidemia, unspecified; J44.9 Chronic obstructive pulmonary disease, unspecified; I27.20 Pulmonary hypertension, unspecified; R33.9 Retention of urine, unspecified; Z68.39 Body mass index [BMI] 39.0-39.9, adult; Z91.19 Patient's noncompliance with other medical treatment and regimen
CPT/HCPCS: 36415; 51702; 71045; 80048; 81003; 82805; 82947; 83735; 83880; 84100; 84484; 85025; 93005; 94640; 96374; 97116; 97161; 97530; 99283; 99285; J1200; J1650; J3590

== ENCOUNTER 2019-09-21 11:41 | Inpatient (IN) | payer OTHER ==
--- OUTSIDE RECORDS SUMMARY | 2019-09-21 11:44 | XMS REPORT ---
[...] Status Dosage System Date Date HydrALAZINE HCl [facility] 18728009201 10 MG Orally Apr 30, Active 1 tablet Four times a 2017 with food day Januvia ND 50054777747 50 MG Orally Active as directed NovoLog ND 45704713648 100 UNIT/ML Active as Subcutaneous directed Gabapentin [facility] 52838701280 400 MG Orally Active 1 capsule Twice a day Tramadol HCl ND 57322295634 50 MG Oral Active (Schedule IV Drug) TAKE ONE (1) TO TWO (2) TABLET(S) BY MOUTH THREE TIMES A DAY NEEDED. Coreg ND 01487063897 3.125 MG Orally Active as directed Lantus ND 07639994768 100 UNIT/ML Active as Subcutaneous directed lasix NDC 0 Oral Active 1 tab Linzess ND 39623804573 290 mcg Active not defined Levothyroxine ND 14706339759 25 MCG Oral Active (Prior Sodium Auth: Rx Ref#:[id number]) Flomax [facility] [address]-32 0.4 MG Orally Active 1 capsule Once a day 30 minutes after the same meal each day Results No Known Results Summary Purpose eClinicalWorks Submission
--- OUTSIDE RECORDS SUMMARY | 2019-09-21 11:44 | XMS REPORT ---
:1935 [facility] Address [address] [place] [address] Dr. Varela [address] [place] [id number] Care Team Providers Name Role Phone ANTHONY [...] 2019-06-16 2019-06-16 Outpatient C SIMÓN Gayatri RAD [id number] 15:18:00 23:59:00 ANTHONY Results Test Description Test Time Test Comments Text Results Atomic Results Result Comments NM LUNG (V/Q ) SCAN*WW* 2019-06-16 16:46:52 Radionuclide ventilation/ perfusion lung scanLocation Code: [id number]: Shortness of breathCOMPARISON: NoneCOMMENT: Routine images of [...] (ISHAAN) (test 157 mg/dL 70-110 TESTED AT [facility] [id number]) [facility] [id number]
[2019-09-21 12:31] LABS: ALT/SGPT 22 U/L (12-78); AST/SGOT 13 U/L (15-37); Absolute Lymphocytes (CBC) 0.6 K/uL (0.7-4.9); Albumin 2.7 g/dL (3.4-5.0); Alkaline Phosphatase 94 U/L (45-117); BUN Blood Urea Nitrogen 56 mg/dL (7-18); Basophils % 0.7 % (0-1.3); Bicarbonate 32 mmol/L (21-32); Bilirubin Total 0.3 mg/dL (0.2-1.0); Glucose Level 179 mg/dL (74-106); Hematocrit 27.9 % (39.6-49.0); Lymphocytes % 8.6 % (15.3-44.8); MPV 9.6 fL (7.6-11.3); Magnesium 2.3 mg/dL (1.8-2.4); NT PRO-BNP 4316 pg/mL (<450); Potassium 4.6 mmol/L (3.5-5.1); Protein, Total 6.4 g/dL (6.4-8.2); Protime INR 1.23; RBC Red Blood Cell Count 3.13 M/uL (4.33-5.43); Sodium Level 139 mmol/L (136-145); Troponin (Emerg Dept Use Only) < 0.02 ng/mL (0.0-0.045)
[2019-09-21] MEDS ORDERED: BUMETANIDE 1 MG/4 ML VIAL IV ONE (12:45)
--- NOTE | 2019-09-21 12:46 | RAD REPORT ---
EXAM DESCRIPTION: Frankit Single View09/21/2019 12:30 pm CLINICAL HISTORY: Chest pain COMPARISON: September 11, 2019 FINDINGS: Mild bilateral pulmonary opacities. The heart is moderately enlarged. Small pleural effusions are suspected IMPRESSION: Mild CHF
--- NOTE | 2019-09-21 14:40 | ER ---
Nurse's Notes [facility] Name: Jimmy Soto Age: 83 yrs Sex: Male : 1935 Arrival Date: 09/21/2019 Time: 11:40 Bed 3 Private MD: Diagnosis: Anasarca;CHF exacerbation;Urinary Retention;Abnormal electrocardiogram [ECG] [EKG] Presentation: 09/21 11:41 Presenting complaint: EMS states: "fluid overload", swelling to arms, legs, abdomen, ch and testicles. pt is on oxygen concentrator at home, regular is 90-91%. Transition of care: patient was not received from another setting of care. Onset of symptoms was September 20, 2019. Risk Assessment: Do you want to hurt yourself or someone else? Patient reports no desire to harm self or others. Initial Sepsis Screen: Does the patient meet any 2 criteria? No. Patient's initial sepsis screen is negative. Does the patient have a suspected source of infection? No. Patient's initial sepsis screen is negative. Care prior to arrival: IV initiated. 20 GA, in the left antecubital area. 11:41 Method Of Arrival: EMS: [facility] 11:41 Acuity: ART 3 ch Triage Assessment: 11:51 General: Appears in no apparent distress. comfortable, Behavior is calm, cooperative, ch appropriate for age. Pain: Denies pain. Historical: - Allergies: 12:08 No Known Allergies; ch - Home Meds: 11:51 atorvastatin 40 mg Oral tab 1 tab once daily [Active]; bumetanide 1 mg Oral tab 1 tab 2 ch times per day [Active]; carvedilol 25 mg Oral tab 1 tab 2 times per day [Active]; gabapentin 300 mg Oral cap 1 cap once daily [Active]; hydralazine 10 mg Oral tab 2 tabs 2 times per day [Active]; Januvia 50 mg Oral tab 1 tabs once daily [Active]; pantoprazole 40 mg Oral TbEC 1 tab once daily [Active]; Synthroid 25 mcg Oral tab 1 tab once daily [Active]; tamsulosin 0.4 mg Oral cp24 1 cap once daily [Active]; - PMHx: 11:51 Cellulitis; Diabetes - IDDM; Hyperlipidemia; Hypertension; Pneumonia; COPD; CHF; leg ch swelling/sores; - PSHx: 11:51 cesar arms; R hip; ch - Immunization history:: Adult Immunizations up to date, Flu vaccine is up to date. - Social history:: Smoking status: Patient/guardian denies using tobacco. - Ebola Screening: : Patient negative for fever greater than or equal to 101.5 degrees Fahrenheit, and additional compatible Ebola Virus Disease symptoms Patient denies exposure to infectious person Patient denies travel to an Ebola-affected area in the 21 days before illness onset No symptoms or risks identified at this time. Screenin:25 Abuse screen: Denies threats or abuse. Nutritional screening: No deficits noted. bb Tuberculosis screening: No symptoms or risk factors identified. 20:29 Fall Risk Secondary diagnosis (15 points) IV access (20 points). Ambulatory Aid- bb None/Bed Rest/Nurse Assist (0 pts). Mental Status- Overestimates/Forgets Limitations (15 pts.). Total Lopez Fall Scale indicates High Risk Score (45 or more points). Fall prevention measures have been instituted. Side Rails Up X 2 Family Present and informed to notify staff if the need to leave the bedside As available patient and family educated on Fall Prevention Program and Strategies. Assessment: 12:08 Reassessment: bladder scan peformed on pt, pt has 431mL in bladder. ch 13:11 Reassessment: Patient appears in no apparent distress at this time. Patient and/or ch family updated on plan of care and expected duration. Pain level reassessed. pt is asleep. General: Appears in no apparent distress. Behavior is calm, cooperative, appropriate for age. Pain: Complains of pain in abdomen diffusely Pain currently is 3 out of 10 on a pain scale. Neuro: No deficits noted. Cardiovascular: Heart tones S1 S2 present Capillary refill < 3 seconds in bilateral fingers toes Clubbing of nail beds is absent Patient's skin is warm and dry. Rhythm is sinus bradycardia sometimes pt drops p wave. Respiratory: Airway is patent Respiratory effort is even, unlabored, Respiratory pattern is regular, shallow Breath sounds are diminished bilaterally. GI: Bowel sounds present X 4 quads. Abd is soft and non tender X 4 quads. pt has +4 swelling in abodmen, tight swelling to cesar legs, and to genitals. pt abdomen has pitting edema. : Swelling noted at urinary meatus on penis on scrotum Last void at 07:00. Derm: Skin is pale, Skin temperature is warm pt has weeping edema to cesar lower legs, wound to L great toe. Musculoskeletal: Capillary refill < 3 seconds, in bilateral fingers. 14:09 Reassessment: Patient appears in no apparent distress at this time. No changes from previously documented assessment. Patient and/or family updated on plan of care and expected duration. Pain level reassessed. pt states he feels the same. pt has had an additional 150mL urine out. skin remains the same. pt has had a total of 600mL urine since gudino placed. 15:05 Reassessment: Patient appears in no apparent distress at this time. pt is sleeping, O2 ch drops to 77% when sleeping. NC moved to mouth from nose, pt O2 improves immediately to 97%. pt HR drops in the 30'S when he is sleeping, pt is a fib slow.pt responds immediately to verbal stimuli and wakes up. pt urinates another 75ML. pt requests food and drink, physician notified. 16:00 Reassessment: Patient appears in no apparent distress at this time. Patient and/or family updated on plan of care and expected duration. Pain level reassessed. pt eating sandwich and has one cup of ice. wound healing nurses in room. no s/s of distress. pt has very swollen weeping red cesar calves, and stage one to sacrum. 19:09 Reassessment: report given to Ottoniel Renteria. 19:26 Reassessment: pt appears to be sleeping arouses easily, IV sites intact, gudino catheter bb in place to bedside drain, family at bedside, awaiting report given for transfer to [facility]. 20:24 Reassessment: Report called to receiving nurse on fourth floor. 20:29 Reassessment: Pt is A\\T\\O x 3, resp unlabored, IV site intact, gudino catheter in place to bedside drain, family at bedside. Vital Signs: 11:51 BP 122 / 77; Pulse 46; Resp 20; Temp 98.5(O); Pulse Ox 95% on 4 lpm NC; Weight 122.47 ch kg; Height 5 ft. 7 in. (170.18 cm); Pain 0/10; 12:57 BP 109 / 59; Pulse 39; Resp 12 S; Pulse Ox 99% on 4 lpm NC; jl7 14:29 BP 101 / 62; Pulse 47; Resp 14 S; Pulse Ox 95% on 4 lpm NC; jl7 15:07 BP 99 / 60; Pulse 40; Resp 15; Pulse Ox 96% on 4 lpm NC; Pain 0/10; ch 19:28 BP 92 / 66; Pulse 41; Resp 98; Temp 97.9(A); Pulse Ox 98% on 4 lpm NC; bb 20:28 BP 106 / 64; Pulse 44; Resp 16 S; Pulse Ox 94% on R/A; bb 11:51 Body Mass Index 42.29 (122.47 kg, 170.18 cm) ch 12:57 MD aware of HR jl7 ED Course: 11:40 Patient arrived in ED. ch 11:43 Triage completed. ch 11:46 Harjinder Mortensen MD is Attending Physician. ps1 11:54 Brianne Vasquez RN is Primary Nurse. ch 12:08 Arm band placed on left wrist. Patient placed in an exam room, on a stretcher, on oxygen, on community living coach, on pulse oximetry. 12:20 X-ray completed. Portable x-ray completed in exam room. Patient tolerated procedure mh1 well. 12:30 XRAY Chest (1 view) In Process Unspecified. EDMS 12:30 No apparent distress. Resting quietly. ch 12:30 Initial lab(s) drawn, by me, sent to lab. Gudino cath inserted, using sterile technique, ch 16 Fr., by me, balloon inflated, to gravity drainage, urine specimen collected. 13:16 Maintain EMS IV. Dressing intact. Good blood return noted. Site clean \\T\\ dry. Gauge \\T\\ ch site: 20G L AC. 14:38 Ingrid Sanchez MD is Hospitalizing Provider. ps1 19:00 Patient has correct armband on for positive identification. Bed in low position. Call bb light in reach. 20:28 No provider procedures requiring assistance completed. Patient admitted, IV remains in bb place. Administered Medications: 13:05 Drug: Bumex 1 mg Route: IVP; Site: left antecubital; ch 15:06 Follow up: Response: No adverse reaction ch Outcome: 14:38 Decision to Hospitalize by Provider. ps1 20:25 Admitted to Med/surg accompanied by tech, room 409, with chart, Report called to bb Receiving nurse on fourth floor. 20:25 Condition: stable 20:25 Instructed on the need for admit. 20:30 Patient left the ED. bb Signatures: Dispatcher [employer] EDBrianne Perla, RN RN Beth Peacock 1 Melvi Renteria RN RN Millicent Kilgore RN RN jl7 Harjinder Mortensen MD MD ps1 Corrections: (The following items were deleted from the chart) 14:29 12:57 BP 109 / 59; Pulse 39bpm; Resp 12bpm; Spontaneous; Pulse Ox 99% RA; MD aware of jl7 HR; jl7
--- NOTE | 2019-09-21 14:40 | EDPHYS ---
Physician Documentation [facility] Name: Jimmy Soto Age: 83 yrs Sex: Male : 1935 Arrival Date: 09/21/2019 Time: 11:40 Bed 3 Private MD: ED Physician Harjinder Mortensen HPI: 09/21 14:52 This 83 yrs old Male presents to ER via EMS with complaints of Abdominal ps1 Swelling. 14:52 patient with renal dysfunction, CHF recent admission for same now presenting with ps1 anasarca. On home O2 \T\ 4L all the time. On bumex. States that fluid gain is apparent and worsening. States that he is not short of breath on O2. Has swelling to arms, legs, scrotum. Unable to urinate 2/2 swelling. . Historical: - Allergies: 12:08 No Known Allergies; ch - Home Meds: 11:51 atorvastatin 40 mg Oral tab 1 tab once daily [Active]; bumetanide 1 mg Oral tab 1 tab 2 ch times per day [Active]; carvedilol 25 mg Oral tab 1 tab 2 times per day [Active]; gabapentin 300 mg Oral cap 1 cap once daily [Active]; hydralazine 10 mg Oral tab 2 tabs 2 times per day [Active]; Januvia 50 mg Oral tab 1 tabs once daily [Active]; pantoprazole 40 mg Oral TbEC 1 tab once daily [Active]; Synthroid 25 mcg Oral tab 1 tab once daily [Active]; tamsulosin 0.4 mg Oral cp24 1 cap once daily [Active]; - PMHx: 11:51 Cellulitis; Diabetes - IDDM; Hyperlipidemia; Hypertension; Pneumonia; COPD; CHF; leg ch swelling/sores; - PSHx: 11:51 cesar arms; R hip; ch - Immunization history:: Adult Immunizations up to date, Flu vaccine is up to date. - Social history:: Smoking status: Patient/guardian denies using tobacco. - Ebola Screening: : Patient negative for fever greater than or equal to 101.5 degrees Fahrenheit, and additional compatible Ebola Virus Disease symptoms Patient denies exposure to infectious person Patient denies travel to an Ebola-affected area in the 21 days before illness onset No symptoms or risks identified at this time. ROS: 14:52 Constitutional: Negative for fever, chills, and weight loss, Eyes: Negative for injury, ps1 pain, redness, and discharge, Cardiovascular: Negative for chest pain, palpitations, and edema, Abdomen/GI: Negative for abdominal pain, nausea, vomiting, diarrhea, and constipation, MS/Extremity: Negative for injury and deformity, Neuro: Negative for headache, weakness, numbness, tingling, and seizure. 14:52 Respiratory: Positive for shortness of breath, at rest. mild, worse with no O2. 14:52 : Positive for scrotal swelling and urinary retention. 14:52 Skin: Positive for diffusely, anasarca. Exam: 14:52 Constitutional: This is a well developed, well nourished patient who is awake, alert, ps1 and in no acute distress. Head/Face: Normocephalic, atraumatic. Chest/axilla: Normal chest wall appearance and motion. Nontender with no deformity. No lesions are appreciated. MS/ Extremity: Pulses equal, no cyanosis. Neurovascular intact. Full, normal range of motion. Neuro: Awake and alert, GCS 15, oriented to person, place, time, and situation. Cranial nerves II-XII grossly intact. Sensory grossly intact. 14:52 Cardiovascular: Rate: bradycardic, Rhythm: regular, Pulses: no pulse deficits are appreciated. 14:52 Abdomen/GI: Inspection: distension, that is moderate, soft tissue from anasarca. 14:52 Skin: Appearance: normal except for affected area, patient has wrapped legs with known wounds of the pretibial area. Otherwise gross anasarca. Vital Signs: 11:51 BP 122 / 77; Pulse 46; Resp 20; Temp 98.5(O); Pulse Ox 95% on 4 lpm NC; Weight 122.47 ch kg; Height 5 ft. 7 in. (170.18 cm); Pain 0/10; 12:57 BP 109 / 59; Pulse 39; Resp 12 S; Pulse Ox 99% on 4 lpm NC; jl7 14:29 BP 101 / 62; Pulse 47; Resp 14 S; Pulse Ox 95% on 4 lpm NC; jl7 15:07 BP 99 / 60; Pulse 40; Resp 15; Pulse Ox 96% on 4 lpm NC; Pain 0/10; ch 19:28 BP 92 / 66; Pulse 41; Resp 98; Temp 97.9(A); Pulse Ox 98% on 4 lpm NC; bb 20:28 BP 106 / 64; Pulse 44; Resp 16 S; Pulse Ox 94% on R/A; bb 11:51 Body Mass Index 42.29 (122.47 kg, 170.18 cm) ch 12:57 MD aware of HR jl7 MDM: 12:34 Patient medically screened. ps1 14:57 Data reviewed: vital signs, nurses notes, lab test result(s), EKG, radiologic studies, ps1 and as a result, I will admit patient. Counseling: I had a detailed discussion with the patient and/or guardian regarding: the historical points, exam findings, and any diagnostic results supporting the discharge/admit diagnosis, lab results, the need for further work-up and treatment in the hospital. 09/21 11:53 Order name: CBC with Diff; Complete Time: 15:51 ps1 09/21 11:53 Order name: Magnesium; Complete Time: 12:51 ps1 09/21 11:53 Order name: NT PRO-BNP; Complete Time: 12:51 ps1 09/21 11:53 Order name: PT-INR; Complete Time: 12:35 ps1 09/21 11:53 Order name: Troponin (emerg Dept Use Only); Complete Time: 12:51 ps1 09/21 11:53 Order name: CMP; Complete Time: 12:51 ps1 09/21 11:53 Order name: XRAY Chest (1 view); Complete Time: 12:51 ps1 09/21 11:53 Order name: EKG; Complete Time: 11:54 ps1 09/21 15:11 Order name: Diet Renal; Complete Time: 15:12 ch 09/21 15:36 Order name: Urine Dipstick--Ancillary (enter results) hb 09/21 15:47 Order name: CBC Smear Scan; Complete Time: 15:51 EDMS 09/21 16:09 Order name: Urine Dipstick-Ancillary; Complete Time: 16:13 EDMS 09/21 18:10 Order name: US EDMS 09/21 11:53 Order name: Cardiac monitoring; Complete Time: 12:17 ps1 09/21 11:53 Order name: EKG - Nurse/Tech; Complete Time: 12:17 ps1 09/21 11:53 Order name: IV Saline Lock; Complete Time: 12:18 ps1 09/21 11:53 Order name: Labs collected and sent; Complete Time: 12:22 ps1 09/21 11:53 Order name: O2 Per Protocol; Complete Time: 12:17 ps1 09/21 11:53 Order name: O2 Sat Monitoring; Complete Time: 12:18 ps1 Administered Medications: 13:05 Drug: Bumex 1 mg Route: IVP; Site: left antecubital; 15:06 Follow up: Response: No adverse reaction Disposition: 09/21/19 14:38 Hospitalization ordered by Ingrid Sanchez for Inpatient Admission. Preliminary diagnosis are Anasarca, CHF exacerbation, Urinary Retention, Abnormal electrocardiogram [ECG] [EKG]. - Bed requested for Telemetry/MedSurg (Inpatient). - Status is Inpatient Admission. bb - Condition is Fair. - Problem is an acute exacerbation. - Symptoms have improved. UTI on Admission? No Signatures: Dispatcher [employer] EDMS Dayna Dent Christina, RN RN ch Ballard, Brenda, RN RN bb Singer, Phillip, MD MD ps1 Corrections: (The following items were deleted from the chart) 18:46 14:38 Hospitalization Ordered by Ingrid Sanchez MD for Inpatient Admission. Preliminary bd diagnosis is Anasarca; CHF exacerbation; Urinary Retention; Abnormal electrocardiogram [ECG] [EKG]. Bed requested for Telemetry/MedSurg (Inpatient). Status is Inpatient Admission. Condition is Fair. Problem is an acute exacerbation. Symptoms have improved. UTI on Admission? No. ps1 20:30 18:46 09/21/2019 14:38 Hospitalization Ordered by Ingrid Sanchez MD for Inpatient bb Admission. Preliminary diagnosis is Anasarca; CHF exacerbation; Urinary Retention; Abnormal electrocardiogram [ECG] [EKG]. Bed requested for Telemetry/MedSurg (Inpatient). Status is Inpatient Admission. Condition is Fair. Problem is an acute exacerbation. Symptoms have improved. UTI on Admission? No. bd
--- NOTE | 2019-09-21 15:35 | EKG ---
Test Date: 2019-09-21 Test Time: 12:36:19 Strategy Manager: JESSE MEASUREMENT RESULTS: Intervals: Rate: 48 OK: QRSD: 90 QT: 538 QTc: 480 [place]: P: OK: QRS: 80 T: 263 INTERPRETIVE STATEMENTS: Atrial fibrillation with slow ventricular response ST & T wave abnormality, consider anterior ischemia or digitalis effect Prolonged QT Abnormal ECG Compared to ECG 09/13/2019 05:29:11 Possible ischemia now present Prolonged QT interval now present ST (T wave) deviation still present Electronically Signed On 09-21-19 15:34:28 ADVERTISING DIRECTOR by Babak Humphries
[2019-09-21 15:46] LABS: Anisocytosis SLIGHT; Blood Morphology Comment NOTED (NOT SEEN); Platelet Estimate DECR; Urine White Blood Cell Casts OK
[2019-09-21] MEDS ORDERED: VANCOMYCIN 1 GM in NA CHLORIDE 0.9% 500 ML IVPB ONE (15:51)
[2019-09-21 16:07] LABS: Urine Blood NEGATIVE (NEG); Urine Glucose NEGATIVE (NEG); Urine Protein NEGATIVE (NEG); Urine Specific Gravity 1.015 (1.005-1.030); Urine pH 5.5 (5.0-7.0)
[2019-09-21] MEDS ORDERED: VANCOMYCIN 2 GM in NA CHLORIDE 0.9% 500 ML IVPB SCH (17:00)
--- NOTE | 2019-09-21 18:06 | RAD REPORT ---
EXAM DESCRIPTION: USExtrem Venous W Compress Bil09/21/2019 5:58 pm CLINICAL HISTORY: Bilateral leg swelling COMPARISON: May 2019 FINDINGS: The common femoral, superficial femoral, popliteal and posterior tibial veins bilaterally are compressible and demonstrate augmentation. Doppler demonstrates good flow. IMPRESSION: No evidence of deep venous thrombosis involving either lower extremity.
[2019-09-21] MEDS ORDERED: ONDANSETRON 4 MG/2 ML VIAL IV PRN (20:59)
[2019-09-21] MEDS ORDERED: IPRATROPIUM BROM 0.5MG/2.5ML NEB PRN (20:59)
[2019-09-21] MEDS: INSULIN -REGULAR HUMAN 50 UNIT/0.5 ML ML SQ SCH ×2 (20:59→21:00)
[2019-09-21] MEDS ORDERED: ACETAMINOPHEN 500 MG TAB PO PRN (20:59)
[2019-09-21] MEDS ORDERED: ALBUTEROL 2.5 MG/3 ML NEB SOL NEB PRN (20:59)
[2019-09-21] MEDS ORDERED: CEFEPIME 2 GM VIAL ONE (23:46)
[2019-09-21] MEDS: CEFEPIME 2 GM in NA CHLORIDE 0.9% 100 ML IV SCH (23:52)
[2019-09-21] MEDS: BUMETANIDE 1 MG/4 ML VIAL IV SCH (23:53)
--- NOTE | 2019-09-21 23:58 | HP ---
Date of Admission: 09/21/2019 Chief Complaint: Shortness of breath, swelling. Code Status: Do not resuscitate. Patient has a living will. Consultants: Dr. Chairez with Nephrology. Primary Care Physician: Cesar Mckenzie MD History Of Present Illness: The patient is an 83-year-old morbidly obese male with past medical hist ory of obstructive sleep apnea, noncompliant with CPAP, chronic kidney disease stage 3, chronic respi ratory failure on oxygen 4 L via nasal cannula, anasarca, becoming resistant to Bumex, comes into the ER after recent discharge on 09/15/2019, for syncopal episode. Patient has been having worsening sw elling. Patient has been gaining weight, was being weighed daily, by the home health nurse. Patient was also instructed to take extra dose of Bumex, was taking 3 mg twice a day, however, was not havin g much success with diuresis. He was having urinary retention and incontinence. Patient also had so me shortness of breath. Symptoms were constant, moderate, progressively worsening. No fever, cough, chest pain. No sputum production. No ill contacts. In the ER, his workup revealed normal WBC coun t. Creatinine level was 1.96, was normal at discharge. Cardiac enzymes were negative. UA was also negative. The patient's chest x-ray showed mild CHF. Patient was then referred for admission. When seen in the ER, he was awake, alert, oriented x3, was diffusely swollen with anasarca, had a Pickett c atheter placed and had some urinary output after Bumex was given. The patient's heart rate did get i nto the 30s and 40s when asleep in the ER. Past Medical History: Hypertension, hyperlipidemia, diabetes mellitus type 2, non-insulin requiring COPD on oxygen 4 L at home, asbestosis, history of MRSA of the foot with cellulitis, history of PE, o bstructive sleep apnea, atrial flutter, hypothyroidism. Surgical History: Bilateral wrist surgery, cataract surgery, right hip surgery, status post replacem ent. Allergies: NO KNOWN DRUG ALLERGIES. Medications: List reviewed. Social History: Patient denies any alcohol use, tobacco use, or illicit drug use. Patient has home health, needs assistance with his activities of daily living. Family History: Denies any family history. Review of Systems: Ten-point system reviewed, negative except as per HPI. Physical Examination: Vital Signs: Blood pressure 122/77, respirations are 20, pulse is 46, temperature 98.5, O2 95% on 4 L via nasal cannula. General: Awake, alert, and oriented x3. Elderly male, morbidly obese, ill-appearing, in some mild d istress. HEENT: Normocephalic, atraumatic. PERRLA. EOMI. Moist mucous membranes. Oropharynx is clear. Po or dentition. Conjunctivae are anicteric. Neck: Supple. Trachea midline. Patient has some jugular venous distention. Respiratory: Diminished breath sounds. Patient has some crackles present. No wheezing. No stridor . No use of accessory muscles. Gastrointestinal: Abdomen is distended. Positive bowel sounds. No guarding or rigidity. Extremities: The patient has diffuse anasarca, swelling of the lower extremities, 3+ with weeping. No calf tenderness. Patient has some mild calf tenderness on both sides. Neuro: Cranial nerves 2 through 12 intact grossly. No focal neurological deficits. Speech is mary l. Skin: The patient has stage II decubitus ulcer on the left buttock, also has erythema of bilateral l ower extremities along with warm to touch. Some abrasions of his skin including the upper extremity. Laboratory Data: UA is negative. Sodium 139, potassium 4.6, chloride 102, CO2 32, BUN 56, creatinin e 1.96, glucose 179, calcium 7.7, magnesium 2.3. Troponin less than 0.02. BNP is 4316, albumin 2.7. INR 1.23. WBC 6.4, H and H 9.2 and 27.9, platelets 96, neutrophils 68%. EKG shows atrial fibrilla tion with slow ventricular response. Patient does have some T-wave abnormality, possible anterior is chemia. Chest x-ray shows mild CHF, personally reviewed. Echocardiogram from 09/02/2019, shows EF o f 55%, left ventricular hypertrophy, dilated left atrium, impaired left ventricular relaxation, aorti c sclerosis. Assessment: An 83-year-old male with, 1.Acute on chronic respiratory distress. Patient is still requiring 4 L via nasal cannula, likely s econdary to congestive heart failure and anasarca. 2.Diffuse anasarca, likely related to urinary retention and refractory diuresis on oral Bumex. The Pickett catheter has been placed. We will continue with diuretics. 3.Acute kidney injury. Baseline creatinine was normal upon discharge recently. We will consult Nep hrology and monitor creatinine level, avoid NSAIDs. 4.Acute congestive heart failure exacerbation, diastolic dysfunction. We will continue with cherelle adams. CHF guidelines. We will monitor I's and O's, free fluid restriction, daily weights. Patient ballard s diffuse anasarca and scrotal edema. 5.Stage II sacral decubitus ulcer. Continue with DuoDerm present on admission. Appreciate Wound He aling consult. 6.Cellulitis of bilateral lower extremities. We will start on vancomycin and cefepime. Obtain bloo d cultures. We will obtain Doppler sonogram of the lower extremities to rule out deep venous thrombo sis. 7.Left first toe diabetic foot wound, no active signs of infection. We will continue with wound car e. 8.Normocytic normochromic anemia likely anemia of chronic disease. Monitor H and H. 9.Diabetes mellitus type 2, non-insulin requiring. We will continue with sliding scale insulin and monitor blood glucose levels. 10.Chronic obstructive pulmonary disease, chronic bronchitis. Continue with albuterol p.r.n. 11.Essential hypertension, resume home medications. 12.Mixed hyperlipidemia, we will continue statin. 13.Hypothyroidism, continue levothyroxine. 14.Obstructive sleep apnea, noncompliant with CPAP. 15.Atrial flutter. Plan: We will admit to Med-Surg, place as inpatient. Length of stay greater than 2 midnights. QUINN Voice ID: [id number]
[2019-09-22] MEDS: METOLAZONE 5 MG TABLET PO SCH ×2 (00:01→23:00)
[2019-09-22] MEDS ORDERED: NA CHLORIDE 0.9% 100 ML IV ONE (00:02)
--- NOTE | 2019-09-22 03:35 | CON ---
Date of Consultation: 09/21/2019 Chief Complaint: Fluid overload, anasarca, cardiorenal syndrome. History Of Present Illness: Patient has multiple medical problems including history of chronic kidney, congestive heart failure, history of acute on chronic respiratory failure, history of right foot the ulcer with infection, history of Staph aureus infection of the right foot. Patient presented to the hospital because of progressively worse shortness of breath, difficulty with ambulation and severe swelling, anasarca. Patient was found to have acute kidney injury. BUN was 56, creatinine 1.961. Lab work was obtained in the emergency room. Previous baseline showed BUN of 23 and creatinine of 0.98. Patient was taking diuretics with combination of treatment for anasarca including Bumex, metolazone, and Lasix. Despite diuretic therapy, patient developed shortness of breath progressively worse over last 2 weeks. He has history of hypertension, hypercholesterolemia, COPD, asbestosis, history of PE, obstructive sleep apnea, morbid obesity, atrial flutter, osteoarthritis. Review of Systems: Constitutional: He has complained of generalized weakness, shortness of breath with activities and at rest. Has PND and orthopnea. Eyes: Denies vision changes. Ears, Nose, Mouth, and Throat: Denies sore throat or earache. Respiratory: Shortness of breath. Denies wheezing. GI: Denies nausea, vomiting. : Denies dysuria, hematuria. Has history of difficulty voiding. MUSCULOSKELETAL: Complaining of some joint discomfort as well as swelling in both legs and arms. All other systems reviewed and all are negative Past Medical History: Urinary retention and previously he required Pickett catheter, diabetes mellitus, hypertension, chronic kidney disease, cardiorenal syndrome, history of anasarca, previously required IV Bumex for volume control. Social History: Denies tobacco, alcohol, or illicit drugs. Family History: No kidney disease in the family. Physical Examination: General: Patient is in pmvu-ls-jlhdazdb respiratory distress. Eyes: EOMI. Anicteric sclerae. Neck: Supple. No JVD. No bruits. Lungs: Crackles bilaterally at bases. Heart: S1, S2. No pericardial friction rub. Abdomen: Soft, obese, nontender. No rebound. No guarding. Extremities: Anasarca. No clubbing, no cyanosis. Skin: Warm and dry. No bleeding. No oozing. Neurologic: Moving extremities. Cranial nerves intact. PSYCHIATRIC: Alert and oriented. Patient follows commands, although he has some hearing impairment. Laboratory Data: Sodium 139, potassium 4.6, chloride 102, CO2 of 32, BUN 56, creatinine 1.96, calcium 7.7, magnesium 2.3, bilirubin 0.3. Troponin less than 0.02. Urinalysis showed specific gravity 1.015, pH 5.5, ketones negative, nitrites negative, leukocyte esterase negative, protein-creatinine ratio 0.64. Impression And Plan: 1. Congestive heart failure decompensated acute on chronic with diastolic dysfunction. Chest x-ray showed mild congestive heart failure, small pleural effusion. There is no evidence of pneumonia. Patient will start Bumex drip for volemia control to treat anasarca. Patient has acute kidney injury secondary to cardiorenal syndrome. Continue p.o. fluid restriction, low-sodium diet, and advance diuretic as needed. 2. Hypertension. Monitor blood pressure and adjust medication as needed for adequate blood pressure control. 3. Proteinuria, mild, likely due to hyperfiltration. Patient may be a candidate for DAWSON inhibitor for proteinuria control and blood pressure control. 4. Anasarca. Patient has history of hypothyroid. Recommend to follow thyroid function. 5. Acute kidney injury on chronic kidney disease. Avoid nephrotoxic medication. Adjust diuretic therapy for volume control and to treat anasarca. MARION/SUSHANT Voice ID: [id number] Report ID: [id number] MTDD
[2019-09-22 06:49] LABS: Absolute Lymphocytes (CBC) 0.3 K/uL (0.7-4.9); Basophils % 0.9 % (0-1.3); Lymphocytes % 5.4 % (15.3-44.8); MPV 9.3 fL (7.6-11.3); RBC Red Blood Cell Count 3.13 M/uL (4.33-5.43)
[2019-09-22 07:12] LABS: Albumin 2.6 g/dL (3.4-5.0); Bilirubin Total 0.5 mg/dL (0.2-1.0); Potassium 4.7 mmol/L (3.5-5.1); Protein, Total 6.4 g/dL (6.4-8.2)
[2019-09-22] MEDS: INSULIN -REGULAR HUMAN 50 UNIT/0.5 ML ML SQ SCH ×4 (07:30→21:00)
[2019-09-22] MEDS: CEFEPIME 2 GM in NA CHLORIDE 0.9% 100 ML IV SCH (09:00)
[2019-09-22] MEDS ORDERED: MIDODRINE HCL 5 MG TABLET PO SCH (09:00)
[2019-09-22] MEDS: BUMETANIDE 1 MG/4 ML VIAL IV SCH (09:37)
[2019-09-22] MEDS: MEDIHONEY 44 ML TOPICAL TUBE TOP SCH (09:37)
[2019-09-22] MEDS: CETIRIZINE HCL 5 MG TABLET PO SCH (09:38)
[2019-09-22] MEDS: CEFEPIME/SWI 2gm 2 GM/20 ML SYR IVP SCH ×2 (11:20→22:55)
[2019-09-22] MEDS: MIDODRINE HCL 5 MG TABLET PO SCH ×2 (13:09→22:55)
[2019-09-22] MEDS ORDERED: FUROSEMIDE 40 MG/4 ML VIAL IV ONE (14:12)
--- NOTE | 2019-09-22 15:36 | CON ---
Date of Consultation: 09/22/2019 Admitted on 09/21/[address] Jay with anasarca. I saw the patient on 09/22/2019. History Of Present Illness: Patient is an 83-year-old male with history of cellulitis and chronic ve nous insufficiency and leg wounds, diabetes, chronic diastolic congestive heart failure, hypertension , dyslipidemia, and COPD. He is a do not resuscitate. He came in with anasarca, pedal edema, orthop tamar, PND. Denied fever or chills. Denied any cough. Denied any syncope or palpitation. Denied any nausea, vomiting, or diaphoresis. Allergies: NONE. Review of Systems: Negative. Social History: Negative. Family History: Noncontributory. Past Medical History: As stated earlier. Medications: At home include hydralazine, Coreg, Neurontin, Flomax, Januvia, Bumex, Protonix, inhale rs, Lipitor, thyroid. Physical Examination: General: He appears to be in mild respiratory distress. He is obese. Vital Signs: He was in atrial fibrillation, rate of 72. HEENT: Negative. Neck: Supple without any bruit, lymphadenopathy, JVD, or thyromegaly. Chest: Revealed rales, both bases. Cardiac: Revealed atrial fibrillation. No murmurs, gallops, or rubs. Abdomen: Obese, but benign. Extremities: Revealed severe edema up to the thighs. Chronic venous insufficiency changes. Neurologic: He was nonfocal. Skin was moist. Pulses were absent in the dorsalis pedis and posterio r tibial bilaterally. Diagnostic And Laboratory Data: EKG showed atrial fibrillation at 72. Creatinine is 1.96. Hemoglob in 9.2, platelet count is 96. BNP is 4316. Chest x-ray shows CHF. Venous Doppler was negative. Ec hocardiogram showed diastolic congestive heart failure. Impression And Plan: 1.Acute on chronic diastolic congestive heart failure. 2.Renal insufficiency, acute on chronic. 3.Chronic atrial fibrillation. 4.Anemia. 5.Thrombocytopenia. 6.Diabetes. 7.Hypertension, well controlled. 8.Dyslipidemia. 9.Chronic obstructive pulmonary disease. 10.Chronic venous insufficiency with leg wounds. 11.DNR status. I would continue Mr. Soto's present regimen. I think he needs to be treated with IV Lasix or Bume x drip as suggested by Nephrology. Certainly adding an DAWSON inhibitor may not be a bad option. He is already on Coreg. He has a normal ejection fraction with decreased left ventricular compliance. We will have to watch his kidney function, weights, and I's and O's carefully. He is not a candidate f or anticoagulation considering his anemia and thrombocytopenia and DNR status and overall functional status. We will continue to follow him. SID/SUSHANT Voice ID: [id number] Report ID: [id number]
[2019-09-22] MEDS: FUROSEMIDE 40 MG/4 ML VIAL IV SCH (16:29)
[2019-09-22] MEDS: ENOXAPARIN 30 MG/0.3 ML SQ SCH ×2 (16:29)
--- NOTE | 2019-09-22 17:26 | P.PN ---
Subjective Date of Service: 09/22/19 Primary Care Provider: Unknown Chief Complaint: Shortness of breath Subjective: Other (Patient stable but increase edema noted. Some shortness of breath noted Overnite.) Physical Examination - Vital Signs Temperature: 96.1 F Blood Pressure: 108/53 Pulse: 55 Respirations: 16 Pulse Ox (%): 98 - Physical Exam General: Alert, In no apparent distress HEENT: Atraumatic Neck: Supple Respiratory: Diminished (Bilateral), Crackles/rales (Bilateral) Cardiovascular: Irregular heart rate/rhythm (Atrial fibrillation rate controlled ) Gastrointestinal: Normal bowel sounds Integumentary: Tenderness/swelling (Pitting edema to the lower extremity noted) Neurological: Normal speech, Normal strength at 5/5 x4 extr, Normal tone - Studies Medications List Reviewed: Yes Assessment & Plan Discharge Plan: Home Plan to discharge in: Greater than 2 days Physician Review Additional Text: Assessment: Acute on chronic respiratory failure secondary to congestive heart failure likely diastolic dysfunction Diffuse anasarca related to above Acute renal injury likely chronic Stage II sacral decubitus ulcer Cellulitis of the lower extremities Normocytic normochromic anemia likely chronic Diabetes mellitus type 2 phn-gwdrajq-spafiyvol Hypertension Hyperlipidemia Hypothyroidism Obstructive sleep apnea Atrial fibrillation Plan: Acute on chronic respiratory failure secondary to congestive heart failure likely diastolic dysfunction: Case discussed with cardiology. Will add IV Lasix for diuresis. Continue fluid restriction. Continue to wean off oxygen. Recheck chest x-ray tomorrow. Case discussed with nephrology and family. Patient is do not resuscitate. Anticipate improvement with diuretic therapy and fluid restriction. Will continue to monitor closely. Diffuse anasarca related to above: Continue as above. Acute renal injury likely chronic: Continue to monitor closely. Continue with recommendations by nephrology. Nephrology added mid a trend to help with blood pressure. Stage II sacral decubitus ulcer: Continue wound care. Will monitor closely. Cellulitis of the lower extremities: Continue wound care and antibiotic therapy. Will monitor closely. Normocytic normochromic anemia likely chronic: Continue monitor levels closely. Diabetes mellitus type 2 [id number]-rnhzqwm-odduehirg: Accu-Cheks and sliding scale in place. Hypertension: Continue to hold blood pressure medication due to low blood pressure.. Hyperlipidemia: Continue medication. Hypothyroidism: Continue medication. Obstructive sleep apnea: Patient may require CPAP at night. Will monitor closely. Maintain sats above 93%. Atrial fibrillation: Rate controlled. Patient not a candidate for chronic anti coagulation therapy due to his chronic illnesses. Time Spent Managing Pts Care (In Minutes): 55
[2019-09-22] MEDS: BUDESONIDE 0.25 MG/2 ML NEB NEB SCH (19:38)
[2019-09-22] MEDS: ATORVASTATIN 40 MG TAB PO SCH (22:55)
[2019-09-22] MEDS: JUVEN PACKET PO SCH (22:55)
--- NOTE | 2019-09-23 00:51 | PN ---
Date of Progress Note: 09/22/2019 Chief Complaint: Anasarca, Cardiorenal syndrome, fluid overload, shortness of breath. History Of Present Illness: Patient has history of chronic kidney disease stage 3, benign nephroscle rosis. He developed oqhji-km-xsvadoc respiratory failure. He has history of right foot ulcer with i nfection, history of Staph aureus infection of the right foot. Patient presented to the hospital bec ause of progressively worse shortness of breath, difficulty with ambulation, severe swelling. He was started on Bumex and he failed diuretic by mouth and developed progressively worse fluid overload wi th anasarca. During this admission, patient is started on midodrine for blood pressure support. Cardiology workup is pending for congestive heart failure. Review of Systems: Denies PND, orthopnea. Complains of swelling in upper and lower extremities. Physical Examination: Lungs: Diminished breath sounds at bases. Heart: S1, S2. Abdomen: Soft. Benign. Extremities: Edema present in both legs and arms. Laboratory Data: Sodium 140, potassium 4.7, chloride 103, CO2 31, BUN 60, creatinine 1.9, calcium is 7.9, albumin is 2.6. Impression And Plan: 1.Chronic kidney disease stage 3, prerenal azotemia. Screen for proteinuria is negative. Patient h as hypoalbuminemia. The plan is to check urine protein electrophoresis with immunofixation. 2.Anasarca. Continue Bumex and metolazone. Patient will continue midodrine and blood pressure will be monitored. Patient may need a higher dose of midodrine to control hypotension. 3.Patient will need workup to rule out pericardial effusion. EB/MODL Voice ID: [id number] Report ID: [id number]
[2019-09-23] MEDS ORDERED: ALBUMIN HUMAN 25% 100 ML IV ONE ×2 (05:44→05:58)
[2019-09-23] MEDS: LEVOTHYROXINE SOD 0.125 MG TAB PO SCH ×2 (06:00)
[2019-09-23 06:02] LABS: Magnesium 2.5 mg/dL (1.8-2.4)
[2019-09-23] MEDS: LEVOTHYROXINE SOD 0.025 MG TAB PO SCH (06:42)
[2019-09-23 06:48] LABS: Absolute Lymphocytes (CBC) 0.3 K/uL (0.7-4.9); Basophils % 0.8 % (0-1.3); Hematocrit 29.8 % (39.6-49.0); Lymphocytes % 5.3 % (15.3-44.8); MPV 9.1 fL (7.6-11.3); RBC Red Blood Cell Count 3.32 M/uL (4.33-5.43)
[2019-09-23] MEDS: INSULIN -REGULAR HUMAN 50 UNIT/0.5 ML ML SQ SCH ×4 (07:30→21:00)
[2019-09-23] MEDS: BUDESONIDE 0.25 MG/2 ML NEB NEB SCH (08:05)
--- NOTE | 2019-09-23 08:17 | RAD REPORT ---
EXAM DESCRIPTION: RAD - Chest Single View - 09/23/2019 6:40 am CLINICAL HISTORY: CHF COMPARISON: September 21, September 11 TECHNIQUE: AP portable chest image was obtained 0637 hours . FINDINGS: Lung volumes are low. Interstitial markings are prominent. Hazy opacification is present i n the mid right lung field. Significant cardiomegaly is present similar to comparison. Vascular engor gement is present or even slightly worse than comparison. Bilateral pleural effusions are evident. No pneumothorax. No new bone finding. No acute aortic findings suspected. IMPRESSION: CHF/volume overload pattern showing no improvement from September 21.
[2019-09-23] MEDS: MEDIHONEY 44 ML TOPICAL TUBE TOP SCH (09:00)
[2019-09-23] MEDS: COLLAGENASE 30 GM OINTMENT TOP SCH (09:00)
[2019-09-23 09:01] LABS: Blood Morphology Comment NOT SEEN (NOT SEEN); Platelet Estimate DECR
[2019-09-23] MEDS: CEFEPIME/SWI 2gm 2 GM/20 ML SYR IVP SCH ×2 (09:09→22:55)
[2019-09-23] MEDS: TAMSULOSIN 0.4 MG SR CAP PO SCH (09:11)
[2019-09-23] MEDS: PANTOPRAZOLE 40MG TABLET PO SCH (09:11)
[2019-09-23] MEDS: CETIRIZINE HCL 5 MG TABLET PO SCH (09:11)
[2019-09-23] MEDS: FUROSEMIDE 40 MG/4 ML VIAL IV SCH (09:11)
[2019-09-23] MEDS: JUVEN PACKET PO SCH ×2 (09:13→21:00)
--- NOTE | 2019-09-23 09:41 | P.PN ---
Subjective Date of Service: 09/23/19 Primary Care Provider: Unknown Chief Complaint: Shortness of breath Subjective: Other (No significant change since yesterday. Patient stills overloaded. Poor urinary output noted. Family at bedside.) Physical Examination - Vital Signs Temperature: 96.1 F Blood Pressure: 99/52 Pulse: 52 Respirations: 16 Pulse Ox (%): 100 - Physical Exam General: Alert, Other (Patient on non-rebreather) HEENT: Atraumatic Neck: Supple Respiratory: Diminished (Bilateral), Crackles/rales (Bilateral) Cardiovascular: Irregular heart rate/rhythm (AFib rate controlled) Gastrointestinal: Normal bowel sounds, Soft and benign, Non-distended Integumentary: Tenderness/swelling (Pain edema to the lower extremities bilateral with erythema bilateral) Neurological: Normal speech - Studies Medications List Reviewed: Yes Assessment & Plan Discharge Plan: Home Plan to discharge in: Greater than 2 days Physician Review Additional Text: Assessment: Acute on chronic respiratory failure secondary to congestive heart failure likely diastolic dysfunction Diffuse anasarca related to above Acute renal injury 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 Cardiology recommends diuresis. Still no improvement with diuresis. Case discussed with nephrology today. Will transfer patient to ICU for close monitoring. Will start IV Lasix drip with albumin. Will check tsh and cortisol level. Will continue to maintain sats above 93%. Continue to monitor chest x-ray. Patient is do not resuscitate. Case discussed with patient and family. Will continue to update. Diffuse anasarca related to above: Transfer to ICU. Will start Lasix drip with albumin. Acute renal injury likely chronic renal disease stage IV: Renal function has declined. Case discussed with nephrology. Will continue with diuresis. Midodrine was added by nephrology to help with blood pressure. Will transfer patient to ICU for close monitoring. Lasix drip to be initiated as recommended by nephrology. Await echocardiogram. Stage II sacral decubitus ulcer: Continue wound care. Will monitor closely. Cellulitis of the lower extremities: Continue wound care and antibiotic therapy. Will monitor closely. Normocytic normochromic anemia likely chronic: Continue monitor levels closely. Diabetes mellitus type 2 inf-qxrgzas-mlblpardo: Accu-Cheks and sliding scale in place. Hypertension: Continue to hold blood pressure medication due to low blood pressure.. Hyperlipidemia: Continue medication. Hypothyroidism: Continue medication. Obstructive sleep apnea: Patient may require CPAP at night. Will monitor closely. Maintain sats above 93%. Atrial fibrillation: Rate controlled. Patient not a candidate for chronic anti coagulation therapy due to his chronic illnesses. Time Spent Managing Pts Care (In Minutes): 55
[2019-09-23 10:41] LABS: Thyroid Stimulating Hormone 6.33 uIU/mL (0.360-3.740)
[2019-09-23] MEDS: MIDODRINE HCL 5 MG TABLET PO SCH ×3 (11:27→21:14)
--- NOTE | 2019-09-23 11:56 | P.CNS ---
Date of Consult: 09/23/19 Primary Care Provider: Unknown Chief Complaint: Shortness of breath History of Present Illness: Patient is 83 years of age with recurrent hospital admissions since August last year him in again with shortness of breath lower extremity edema unresponsive to Bumex denies any fever chills as worsening shortness of breath unresponsive to IV Lasix was currently transferred to the ICU as some shortness of breath no chest pain significant lower extremity edema history of sleep apnea non compliant with the CPAP Allergies No Known Allergies Allergy (Verified 01/19/18 04:44) Home Medications: Levothyroxine [Synthroid*] 25 mcg PO [id number] 05/20/19 Sitagliptin Phosphate [Januvia*] 50 mg PO DAILY 05/20/19 Tamsulosin HCl [Flomax] 0.4 mg PO DAILY 05/20/19 Atorvastatin Calcium [Lipitor] 40 mg PO BEDTIME #30 tab 09/04/19 Diphenhydramine [Benadryl*] 25 mg PO Q6H PRN #30 tab 09/04/19 Hydralazine [Apresoline*] 20 mg PO BID #30 tab 09/04/19 Pantoprazole [Protonix Tab*] 40 mg PO DAILY #30 tab 09/04/19 carvediloL [Coreg*] 25 mg PO BID #60 tab 09/04/19 Gabapentin [Gralise] 300 mg PO DAILY 09/11/19 Albuterol Neb [Proventil 0.083% Neb Soln] 2.5 mg NEB [id number] #120 amp 09/15/19 Bumetanide [Bumex*] 2 mg PO BID #60 tab 09/15/19 Collagenase [Santyl Ointment*] 1 appl TOP DAILY #1 tube 09/15/19 Ipratropium Neb [Atrovent*] 0.5 mg NEB [id number] #120 amp 09/15/19 - Past Medical/Surgical History Diabetic: Yes -: HTN -: high cholesterol -: copd -: asbestosis -: Mr SA foot w/ cellulitis -: PE -: Obstructive sleep apnea -: Atrial flutter -: CHF -: Edema -: Renal failure -: [place] wrist sx (fell off [place] stand and broke both wrist) -: cataract Sx -: Right hip sx r/t fx - Family History Mother Notes: denies having family history of illness Father Notes: denies having family history of illness Sister Notes: denies having family history of illness Brother Notes: denies having family history of illness - Social History Smoking Status: Unknown if ever smoked Alcohol use: No CD- Drugs: No Caffeine use: Yes Place of Residence: Home Review of Systems General: Weakness Respiratory: Cough, Shortness of Breath Cardiovascular: Edema Physical Examination Temp Pulse Resp BP Pulse Ox 96.1 F L 52 16 99/52 L 100 09/23/19 09:41 09/23/19 09:41 09/23/19 09:41 09/23/19 09:41 09/23/19 09:41 General: Alert, In no apparent distress, Moderate distress HEENT: Atraumatic Neck: Supple Respiratory: Crackles/rales Cardiovascular: Edema Gastrointestinal: Normal bowel sounds - Problems (1) Respiratory failure Current Visit: Yes Status: Acute Plan: Patient is 83 years of age admitted with worsening shortness of breath lower extremity edema unresponsive to diuretic therapy very hypoxic trial of BiPAP agree with transfer to the ICU patient is an antibiotic previous cultures have been negative patient's white count is normal renal function has worsened history of diastolic dysfunction no evidence of sepsis can Dc antibiotics recommend cultures maybe or induced BiPAP I hypoxemia which includes is diastolic dysfunction and renal dysfunction patient uses intermittent oxygen at home there is no prior history of COPD as per the daughter Qualifiers: Respiratory failure complication: unspecified whether with hypoxia or hypercapnia
[2019-09-23] MEDS: FUROSEMIDE 100 MG in NA CHLORIDE 0.9% 90 ML IV SCH ×3 (13:22→22:54)
[2019-09-23 13:48] LABS: Blood Gas Oxyhemoglobin 94.4 % (94-97); Blood O2 Saturation 96.8 % (92-98.5)
--- NOTE | 2019-09-23 16:49 | PN ---
Mr. Soto is not improving. He has had virtually no diuresis with very large doses of Lasix. He i s being moved to the ICU, so we can do a Lasix drip. He may end up requiring hemodialysis to remove fluid. His creatinine is only 2.4, but if we can affect the diuresis with medications, it may be req uired. Overall, his prognosis is poor. His underlying heart disease that causes all this seems to b e diastolic dysfunction due to left ventricular hypertrophy, and I will have this condition causing a cardiorenal dyssynergy that is making him deteriorate quickly with further diuresis. I expect his c reatinine will most likely get worse, although hopefully not. He is not a candidate for a defibrilla tor or for Entresto. Thank you very much for your kind referral of Mr. Soto. ANDREAS/SUSHANT Voice ID: [id number] Report ID: [id number]
[2019-09-23] MEDS: ENOXAPARIN 30 MG/0.3 ML SQ SCH (17:33)
[2019-09-23] MEDS ORDERED: ALBUMIN HUMAN 25% 50 ML IV SCH (19:00)
[2019-09-23] MEDS: ALBUMIN HUMAN 25% 50 ML IV SCH (20:14)
[2019-09-23 20:52] LABS: Potassium 4.9 mmol/L (3.5-5.1)
[2019-09-23] MEDS: ATORVASTATIN 40 MG TAB PO SCH (21:13)
[2019-09-24] MEDS: ALBUMIN HUMAN 25% 50 ML IV SCH ×3 (02:04→12:49)
[2019-09-24] MEDS: FUROSEMIDE 100 MG in NA CHLORIDE 0.9% 90 ML IV SCH ×5 (03:52→19:53)
[2019-09-24 05:07] LABS: Absolute Lymphocytes (CBC) 0.4 K/uL (0.7-4.9); Basophils % 0.9 % (0-1.3); Hematocrit 28.4 % (39.6-49.0); Lymphocytes % 8.5 % (15.3-44.8); MPV 9.5 fL (7.6-11.3); RBC Red Blood Cell Count 3.18 M/uL (4.33-5.43)
[2019-09-24 05:17] LABS: Magnesium 2.6 mg/dL (1.8-2.4); Potassium 4.9 mmol/L (3.5-5.1)
[2019-09-24] MEDS: INSULIN -REGULAR HUMAN 50 UNIT/0.5 ML ML SQ SCH ×4 (07:28→20:44)
[2019-09-24] MEDS: MEDIHONEY 44 ML TOPICAL TUBE TOP SCH (09:00)
[2019-09-24] MEDS: COLLAGENASE 30 GM OINTMENT TOP SCH (09:00)
[2019-09-24 09:24] LABS: Arterial Blood Carboxyhemoglob 2.4 % (0-1.5); Blood Gas Oxyhemoglobin 91.7 % (94-97); Blood O2 Saturation 94.4 % (92-98.5)
[2019-09-24] MEDS: TAMSULOSIN 0.4 MG SR CAP PO SCH (09:43)
[2019-09-24] MEDS: LEVOTHYROXINE SOD 0.025 MG TAB PO SCH (09:43)
[2019-09-24] MEDS: MIDODRINE HCL 5 MG TABLET PO SCH ×3 (09:43→19:54)
[2019-09-24] MEDS: PANTOPRAZOLE 40MG TABLET PO SCH (09:43)
--- NOTE | 2019-09-24 09:43 | RAD REPORT ---
EXAM DESCRIPTION: RAD - Chest Single View - 09/24/2019 9:12 am CLINICAL HISTORY: CHF COMPARISON: September 23 TECHNIQUE: AP portable chest image was obtained 0905 hours . FINDINGS: Lung volumes remain low. Interstitial alveolar opacification is still present. Findings ar e not substantially different from comparison. Cardiomegaly and vascular engorgement remain. Bilatera l pleural fluid is still evident. No pneumothorax. IMPRESSION: CHF/volume overload pattern not substantially different from prior day imaging.
[2019-09-24] MEDS: JUVEN PACKET PO SCH ×2 (09:44→19:54)
[2019-09-24] MEDS: CEFEPIME/SWI 2gm 2 GM/20 ML SYR IVP SCH (09:44)
--- NOTE | 2019-09-24 12:49 | P.PN ---
Subjective Date of Service: 09/24/19 Primary Care Provider: Unknown Chief Complaint: Shortness of breath Subjective: Improving (Patient is doing somewhat better compliant with BiPAP feels better) Review of Systems General: Weakness Respiratory: Shortness of Breath Physical Examination - Vital Signs Temperature: 96.9 F Blood Pressure: 95/45 Pulse: 52 Respirations: 12 Pulse Ox (%): 97 - Physical Exam General: Alert, In no apparent distress, Oriented x3 Respiratory: Clear to auscultation bilaterally, Diminished Cardiovascular: Normal S1 S2, Edema - Studies Medications List Reviewed: Yes Assessment & Plan - Problems (Diagnosis) (1) Respiratory failure Current Visit: Yes Status: Acute Plan: Patient is improving now diuresing all rating BiPAP renal function stable on Lasix albumin drip patient has significant lower extremity edema vital signs are stable his lower extremity erythema with edema and no evidence of an infection can Dc cefepime consider stopping antibiotics until his evidence of sepsis no cultures patient is on 35% O2 Qualifiers: Respiratory failure complication: unspecified whether with hypoxia or hypercapnia Physician Review Additional Text: Assessment: Acute on chronic respiratory failure secondary to congestive heart failure likely diastolic dysfunction Diffuse anasarca related to above Acute renal injury 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 Cardiology recommends diuresis. Still no improvement with diuresis. Case discussed with nephrology today. Will transfer patient to ICU for close monitoring. Will start IV Lasix drip with albumin. Will check tsh and cortisol level. Will continue to maintain sats above 93%. Continue to monitor chest x-ray. Patient is do not resuscitate. Case discussed with patient and family. Will continue to update. Diffuse anasarca related to above: Transfer to ICU. Will start Lasix drip with albumin. Acute renal injury likely chronic renal disease stage IV: Renal function has declined. Case discussed with nephrology. Will continue with diuresis. Midodrine was added by nephrology to help with blood pressure. Will transfer patient to ICU for close monitoring. Lasix drip to be initiated as recommended by nephrology. Await echocardiogram. Stage II sacral decubitus ulcer: Continue wound care. Will monitor closely. Cellulitis of the lower extremities: Continue wound care and antibiotic therapy. Will monitor closely. Normocytic normochromic anemia likely chronic: Continue monitor levels closely. Diabetes mellitus type 2 [id number]-[id number]: Accu-Cheks and sliding scale in place. Hypertension: Continue to hold blood pressure medication due to low blood pressure.. Hyperlipidemia: Continue medication. Hypothyroidism: Continue medication. Obstructive sleep apnea: Patient may require CPAP at night. Will monitor closely. Maintain sats above 93%. Atrial fibrillation: Rate controlled. Patient not a candidate for chronic anti coagulation therapy due to his chronic illnesses.
[2019-09-24] MEDS: CETIRIZINE HCL 5 MG TABLET PO SCH (13:10)
--- NOTE | 2019-09-24 13:10 | ECHO ---
HEIGHT: 5 ft 7 in WEIGHT: 272 lb 0 oz DATE OF STUDY: 09/24/[address]: Paras Jay DO 2-DIMENSIONAL: YES M.MODE: YES DOPPLER: YES COLOR FLOW: YES TDS: NO PORTABLE: NO DEFINITY: NO BUBBLE STUDY: NO DIAGNOSIS: EVALUTE FOR CONGESTIVE HEART FAILURE CARDIAC HISTORY: CATHERIZATION: NO SURGERY: NO PROSTHETIC VALVE: NO PACEMAKER: NO MEASUREMENTS (cm) DIASTOLIC (NORMALS) SYSTOLIC (NORMALS) IVSd 1.3 (0.6-1.2) LA Diam 4.3 (1.9-4.0) LVEF >70% LVIDd 4.4 (3.5-5.7) LVIDs 3.2 (2.0-3.5) %FS 27% LVPWd 1.1 (0.6-1.2) Ao Diam 3.2 (2.0-3.7) 2 DIMENSIONAL ASSESSMENT: RIGHT ATRIUM: DILATED LEFT ATRIUM: DILATED RIGHT VENTRICLE: NORMAL LEFT VENTRICLE: LEFT VENTRICULAR HYPERTROPHY TRICUSPID VALVE: NORMAL MITRAL VALVE: NORMAL PULMONIC VALVE: NORMAL AORTIC VALVE: MILD SCLEROSIS PERICARDIAL EFFUSION: NONE AORTIC ROOT: NORMAL LEFT VENTRICULAR WALL MOTION: HYPERDYNAMIC. DOPPLER/COLOR FLOW: MILD MITRAL AND TRICUSPID REGURGITATION. MODERATE PULMONARY HYPERTENSION, ESTIMATED RIGHT VENTRICULAR SYSTOLIC PRESSURE 50mmHg. ESTIMATED RIGHT ATRIAL PRESSURE 15mmHg. COMMENTS: HYPERDYNAMIC LEFT VENTRICULAR EJECTION FRACTION. DILATED LEFT AND RIGHT ATRIUM. LEFT VENTRICULAR HYPERTORPHY. MILD AORTIC SCLEROSIS WITH NO AORTIC STENOSIS OR AORTIC REGURGITATION. MILD MITRAL AND TRICUSPID REGURGITATION. MODERATE PULMONARY HYPERTENSION, ELEVATED RIGHT ATRIAL PRESSURE. TECHNOLOGIST: LETICIA YUN
--- NOTE | 2019-09-24 13:40 | PN ---
Date of Progress Note: 09/24/2019 Subjective: Mr. Soto is an 83-year-old. He is a do not resuscitate. He has been followed by Dr. Humphries, myself, and Dr. Jay since September 21, 2019. He has chronic diastolic congestive heart f ailure. He has renal failure, atrial fibrillation, COPD, diabetes, hypertension, and dyslipidemia. He has anemia, thrombocytopenia, and chronic venous insufficiency. He was transferred to the ICU in the last couple days for more intensive diuresis. He is on IV albumin drip, Lasix drip. He remains in atrial flutter at 50. His weight has come down about 2 to 3 pounds. He remained on CPAP with sierra quate O2 saturation. Laboratory Studies: Creatinine today is 2.53. Hemoglobin is 8.9. Imaging: Another echocardiogram is pending mostly to rule out pericardial effusion as recommended by Nephrology. Plan: Continue antibiotics. Watch creatinine. We will continue to follow him. ISD/MODL Voice ID: [id number] Report ID: [id number]
--- NOTE | 2019-09-24 13:53 | P.PN ---
Subjective Date of Service: 09/24/19 Primary Care Provider: Unknown Chief Complaint: Shortness of breath Subjective: Other (Patient stable at this time.) Physical Examination - Vital Signs Temperature: 96.9 F Blood Pressure: 95/45 Pulse: 52 Respirations: 12 Pulse Ox (%): 97 - Physical Exam General: Alert, Other (Patient stable at this time.) Neck: Supple Respiratory: Diminished (Bilateral) Cardiovascular: Irregular heart rate/rhythm (Atrial flutter rate controlled) Gastrointestinal: Normal bowel sounds, Soft and benign, Non-distended Integumentary: Tenderness/swelling (Pain edema to the lower extremity improved) Neurological: Normal speech, Normal strength at 5/5 x4 extr - Studies Medications List Reviewed: Yes Assessment & Plan Discharge Plan: Other ([facility] facility) Plan to discharge in: Greater than 2 days Physician Review Additional Text: Assessment: Acute on chronic respiratory failure secondary to acute on chronic diastolic congestive heart failure with moderate pulmonary hypertension Diffuse anasarca related to above Acute renal injury likely chronic renal disease stage IV Stage II sacral decubitus ulcer Cellulitis of the lower extremities Normocytic normochromic anemia likely chronic Diabetes mellitus type 2 [id number]-[id number] Hypertension Hyperlipidemia Hypothyroidism Obstructive sleep apnea Atrial fibrillation Plan: Acute on chronic respiratory failure secondary to acute on chronic diastolic congestive heart failure with moderate pulmonary hypertension: Echo reviewed. Continued diuresis at this time. Patient remains on IV Lasix drip and albumin. Nephrology plans to add increase med talus zone. Will continue monitor input and output closely. Maintain sats above 93%. Wean off oxygen. Will update family. Diffuse anasarca related to above: Continue with diuresis Acute renal injury likely chronic renal disease stage IV: Renal function has remained stable. Continue with diuresis. Stage II sacral decubitus ulcer: Continue wound care. Will monitor closely. Cellulitis of the lower extremities: No evidence of antibiotic therapy. Pulmonology recommends to discontinue medication. This may be related to anasarca. Normocytic normochromic anemia likely chronic: Continue monitor levels closely. Diabetes mellitus type 2 [id number]: Accu-Cheks and sliding scale in place. Hypertension: Continue to hold blood pressure medication due to low blood pressure.. Hyperlipidemia: Continue medication. Hypothyroidism: Continue medication. Obstructive sleep apnea: Patient may require CPAP at night. Will monitor closely. Maintain sats above 93%. Atrial fibrillation: Rate controlled. Patient not a candidate for chronic anti coagulation therapy due to his chronic illnesses. Time Spent Managing Pts Care (In Minutes): 55
--- NOTE | 2019-09-24 14:34 | PN ---
Date of Progress Note: 09/23/2019 Chief Complaint: Acute on chronic kidney injury. Renal function has worsened over last 48 hours. History Of Present Illness: On presentation to the hospital, creatinine level was 1.96 and has risen up to 2.52. Patient has severe fluid overload. He remains hypotensive despite midodrine dose, whic h was escalated to 10 mg 3 times per day. Urine output has not improved with IV Bumex. Patient is t ransferred to ICU for Lasix drip with IV albumin and management of hypotension. Patient has obstruct ahmet sleep apnea. He was started on BiPAP and blood pressure stabilized. Patient was found to have r espiratory acidosis and required BiPAP. Review of Systems: Patient denies chest pain, palpitation. He complains of generalized weakness. Physical Examination: Lungs: Diminished breath sounds at bases. Heart: S1, S2. Abdomen: Soft, benign. Extremities: Edema, anasarca. Laboratory Data: BUN 75, creatinine 2.52, sodium 139, potassium 4.9, chloride 101, CO2 of 29, calciu m 7.9. Impression And Plan: 1.Acute on chronic kidney injury, Cardiorenal syndrome, prerenal azotemia due to hypotension and candi al hypoperfusion. Continue management for hypotension. Midodrine was increased. Patient will munir nue BiPAP treatment of respiratory acidosis. Diuretic was advanced to IV drip. Lasix to control mack sarca, fluid overload. 2.The patient has underlying chronic kidney disease stage 3. Avoid nephrotoxic medication. 3.Plan is to screen for proteinuria. Urinalysis did not show positive screen for proteinuria. Prot ein is negative. Urinalysis will be done to screen for nephritis. 4.Respiratory acidosis. pH was 7.25, pCO2 of 68, pO2 of 96. Patient had some altered mental status due to respiratory acidosis. He required BiPAP and was transferred to ICU. Continue management for volume overload, anasarca with diuretic drip. EB/MODL Voice ID: [id number] Report ID: [id number]
--- NOTE | 2019-09-24 14:57 | P.PN ---
Subjective Date of Service: 09/27/19 Primary Care Provider: Unknown Chief Complaint: Shortness of breath Subjective: No new changes pw ith CKD, CHF an COPD admitted for SOB and fluid overload was discharged on Bumex 2gm Po daily today No new complaints , confused now UO improving will add metolazone cont albumin and midodrine - Past Medical/Surgical History Diabetic: Yes -: HTN -: high cholesterol -: copd -: asbestosis -: Mr SA foot w/ cellulitis -: PE -: Obstructive sleep apnea -: Atrial flutter -: Rosalino wrist sx (fell off [place] stand and broke both wrist) -: cataract Sx -: Right hip sx r/t fx - Family History Mother Notes: denies having family history of illness Father Notes: denies having family history of illness Sister Notes: denies having family history of illness Brother Notes: denies having family history of illness - Social History Smoking Status: Unknown if ever smoked Alcohol use: No CD- Drugs: No Caffeine use: Yes Place of Residence: Home Physical exam General: confused, NAD , on BiPAP HEENT: Atraumatic, EOMI Neck: Supple, Without JVD or thyroid abnormality Respiratory: Decreased air entry b/L , with basal rales Cardiovascular: Regular rate/rhythm, Normal S1 S2, No gallops, No rubs, No murmurs, Edema Gastrointestinal: Normal bowel sounds, Soft and benign, Non-distended, No ascites, No tenderness, No masses Musculoskeletal: Swelling, B?l leg dressing Conclusions/Impression: OTIS 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
[2019-09-24] MEDS ORDERED: ALBUMIN HUMAN 25% 100 ML IV SCH (15:00)
[2019-09-24] MEDS: ENOXAPARIN 30 MG/0.3 ML SQ SCH (16:36)
[2019-09-24] MEDS: ATORVASTATIN 40 MG TAB PO SCH (19:54)
[2019-09-24] MEDS: ALBUMIN HUMAN 25% 100 ML IV SCH (19:55)
[2019-09-25] MEDS: FUROSEMIDE 100 MG in NA CHLORIDE 0.9% 90 ML IV SCH ×5 (01:01→23:28)
[2019-09-25] MEDS: ALBUMIN HUMAN 25% 100 ML IV SCH ×2 (04:17→12:37)
[2019-09-25 06:00] LABS: Absolute Lymphocytes (CBC) 0.4 K/uL (0.7-4.9); Basophils % 0.7 % (0-1.3); Hematocrit 27.3 % (39.6-49.0); Lymphocytes % 8.6 % (15.3-44.8); MPV 9.2 fL (7.6-11.3); RBC Red Blood Cell Count 3.08 M/uL (4.33-5.43)
[2019-09-25 06:22] LABS: Magnesium 2.5 mg/dL (1.8-2.4); Potassium 4.4 mmol/L (3.5-5.1)
[2019-09-25] MEDS: LEVOTHYROXINE SOD 0.025 MG TAB PO SCH (06:46)
[2019-09-25] MEDS: INSULIN -REGULAR HUMAN 50 UNIT/0.5 ML ML SQ SCH ×4 (07:29→21:00)
[2019-09-25 08:09] LABS: Anisocytosis 1+; Blood Morphology Comment NOTED (NOT SEEN); Platelet Estimate DECR; Urine White Blood Cell Casts OK
--- NOTE | 2019-09-25 08:35 | RAD REPORT ---
EXAM DESCRIPTION: RAD - Chest Single View - 09/25/2019 8:20 am CLINICAL HISTORY: Fluid overload COMPARISON: September 24, September 23 TECHNIQUE: AP portable chest image was obtained 0818 hours . FINDINGS: Lung volumes remain low. Interstitial markings are prominent. Cardiomegaly and vascular en gorgement remain. Trachea is midline. Small bilateral pleural effusions still suspected. No pneumotho rax. No acute bony abnormality seen. No acute aortic findings suspected. IMPRESSION: CHF/volume overload pattern not substantially different from comparison.
[2019-09-25] MEDS: MEDIHONEY 44 ML TOPICAL TUBE TOP SCH (09:00)
[2019-09-25] MEDS ORDERED: CEFEPIME/SWI 2gm 2 GM/20 ML SYR IVP SCH (09:00)
[2019-09-25] MEDS: CETIRIZINE HCL 5 MG TABLET PO SCH (09:05)
[2019-09-25] MEDS: METOLAZONE 5 MG TABLET PO SCH (09:05)
[2019-09-25] MEDS: PANTOPRAZOLE 40MG TABLET PO SCH (09:05)
[2019-09-25] MEDS: TAMSULOSIN 0.4 MG SR CAP PO SCH (09:05)
[2019-09-25] MEDS: MIDODRINE HCL 5 MG TABLET PO SCH ×2 (09:05→21:46)
[2019-09-25] MEDS: JUVEN PACKET PO SCH ×2 (09:06→21:00)
[2019-09-25] MEDS ORDERED: ENOXAPARIN 30 MG/0.3 ML SQ SCH (09:29)
[2019-09-25 10:07] LABS: Protime INR 1.34
[2019-09-25] MEDS: DIPHENHYDRAMINE 25 MG TAB/CAP PO PRN ×2 (11:38→21:46)
--- NOTE | 2019-09-25 13:27 | P.PN ---
Subjective Date of Service: 09/25/19 Primary Care Provider: Unknown Chief Complaint: Respiratory failure Subjective: Improving (Improving patient is diuresing more on Lasix albumin drip is more alert although he does not claim to be any better tolerate being off BiPAP) Review of Systems General: Weakness Respiratory: Shortness of Breath Cardiovascular: Edema Physical Examination - Vital Signs Temperature: 96.9 F Blood Pressure: 101/74 Pulse: 66 Respirations: 17 Pulse Ox (%): 97 - Physical Exam General: Alert, Oriented x3 HEENT: Atraumatic Neck: Supple Respiratory: Clear to auscultation bilaterally, Diminished Cardiovascular: Edema - Studies Medications List Reviewed: Yes Assessment & Plan - Problems (Diagnosis) (1) Respiratory failure Current Visit: Yes Status: Acute Plan: Patient is doing well off should be able to tolerate being off BiPAP in use nasal cannula oxygen use BiPAP p.r.n. he does have sleep apnea creatinine is improving patient's vital signs are stable titrate sat to 95% labs reviewed antibiotics Dc 8 Qualifiers: Respiratory failure complication: unspecified whether with hypoxia or hypercapnia Physician Review Additional Text: Assessment: Acute on chronic respiratory failure secondary to acute on chronic diastolic congestive heart failure with moderate pulmonary hypertension Diffuse anasarca related to above Acute renal injury likely chronic renal disease stage IV Stage II sacral decubitus ulcer Cellulitis of the lower extremities Normocytic normochromic anemia likely chronic Diabetes mellitus type 2 [id number]-[id number] Hypertension Hyperlipidemia Hypothyroidism Obstructive sleep apnea Atrial fibrillation Plan: Acute on chronic respiratory failure secondary to acute on chronic diastolic congestive heart failure with moderate pulmonary hypertension: Echo reviewed. Continued diuresis at this time. Patient remains on IV Lasix drip and albumin. Nephrology plans to add increase med talus zone. Will continue monitor input and output closely. Maintain sats above 93%. Wean off oxygen. Will update family. Diffuse anasarca related to above: Continue with diuresis Acute renal injury likely chronic renal disease stage IV: Renal function has remained stable. Continue with diuresis. Stage II sacral decubitus ulcer: Continue wound care. Will monitor closely. Cellulitis of the lower extremities: No evidence of antibiotic therapy. Pulmonology recommends to discontinue medication. This may be related to anasarca. Normocytic normochromic anemia likely chronic: Continue monitor levels closely. Diabetes mellitus type 2 [id number]: Accu-Cheks and sliding scale in place. Hypertension: Continue to hold blood pressure medication due to low blood pressure.. Hyperlipidemia: Continue medication. Hypothyroidism: Continue medication. Obstructive sleep apnea: Patient may require CPAP at night. Will monitor closely. Maintain sats above 93%. Atrial fibrillation: Rate controlled. Patient not a candidate for chronic anti coagulation therapy due to his chronic illnesses.
--- NOTE | 2019-09-25 18:09 | PN ---
Date of Progress Note: 09/25/2019 Mr. Soto is 83. He is here with acute on chronic diastolic congestive heart failure. Echocardiog harry which was done yesterday showed an ejection fraction of 70% with hyperdynamic left ventricle. Mo derate pulmonary hypertension. Today, he remains in atrial fibrillation at rate of 153, which is chr onic. His blood pressure is 125/54, and O2 saturation on CPAP is 98%. He is feeling better. He con tinues to diurese on IV Lasix drip and Bumex drip. Nephrology is following him. His creatinine toda y is 2.35. The case was discussed with Dr. Jay. We will continue present regimen. From a CHF [facility], his mainstay of therapy is beta-blockade, salt control, and diuresis. NB/MODL Voice ID: [id number] Report ID: [id number]
--- NOTE | 2019-09-25 18:21 | P.PN ---
Subjective Date of Service: 09/25/19 Primary Care Provider: Unknown Chief Complaint: Respiratory failure Subjective: Improving Physical Examination - Vital Signs Temperature: 96.9 F Blood Pressure: 119/57 Pulse: 69 Respirations: 22 Pulse Ox (%): 95 - Physical Exam General: Alert, In no apparent distress, Oriented x3, Cooperative HEENT: Atraumatic Neck: Supple Respiratory: Crackles/rales (Improved) Cardiovascular: Other (AFib rate controlled) Gastrointestinal: W/out hepatomegaly, W/out splenomegaly, No ascites Integumentary: Tenderness/swelling (Swelling to the lower extremities noted) - Studies Medications List Reviewed: Yes Assessment & Plan Discharge Plan: LTAC Plan to discharge in: 24 Hours Physician Review Additional Text: Assessment: Acute on chronic respiratory failure secondary to acute on chronic diastolic congestive heart failure with moderate pulmonary hypertension Diffuse anasarca related to above Acute renal injury likely chronic renal disease stage IV Stage II sacral decubitus ulcer Cellulitis of the lower extremities Normocytic normochromic anemia likely chronic Diabetes mellitus type 2 dwt-jhbjwnj-kaawsyxal Hypertension Hyperlipidemia Hypothyroidism Obstructive sleep apnea Atrial fibrillation Plan: Acute on chronic respiratory failure secondary to acute on chronic diastolic congestive heart failure with moderate pulmonary hypertension: Patient has improved with IV Lasix drip. Case discussed with pulmonology and nephrology. Case also discussed with patient and family members. Patient agrees to go to long-term acute care facility. Anticipate discharge to LTAC tomorrow.. Diffuse anasarca related to above: Continue with diuresis Acute renal injury likely chronic renal disease stage IV: Renal function has remained stable. Continue with diuresis. Stage II sacral decubitus ulcer: Continue wound care. Will monitor closely. Cellulitis of the lower extremities: No evidence of antibiotic therapy. Pulmonology recommends to discontinue medication. This may be related to anasarca. Normocytic normochromic anemia likely chronic: Continue monitor levels closely. Diabetes mellitus type 2 [id number]: Accu-Cheks and sliding scale in place. Hypertension: Continue to hold blood pressure medication due to low blood pressure.. Hyperlipidemia: Continue medication. Hypothyroidism: Continue medication. Obstructive sleep apnea: Patient may require CPAP at night. Will monitor closely. Maintain sats above 93%. Atrial fibrillation: Rate controlled. Patient not a candidate for chronic anti coagulation therapy due to his chronic illnesses. Time Spent Managing Pts Care (In Minutes): 55
--- NOTE | 2019-09-25 20:35 | P.PN ---
Subjective Date of Service: 09/27/19 Primary Care Provider: Unknown Chief Complaint: Respiratory failure Subjective: Improving pw ith CKD, CHF an COPD admitted for SOB and fluid overload was discharged on Bumex 2gm Po daily today More alert , complaining of itching UO improving after IV lasix and metolazone Bun trending up BP improving, will dc albumin and reduce midodrine will benefit from transferring to LTAC - Past Medical/Surgical History Diabetic: Yes -: HTN -: high cholesterol -: copd -: asbestosis -: Mr SA foot w/ cellulitis -: PE -: Obstructive sleep apnea -: Atrial flutter -: Rosalino wrist sx (fell off [place] and broke both wrist) -: cataract Sx -: Right hip sx r/t fx - Family History Mother Notes: denies having family history of illness Father Notes: denies having family history of illness Sister Notes: denies having family history of illness Brother Notes: denies having family history of illness - Social History Smoking Status: Unknown if ever smoked Alcohol use: No CD- Drugs: No Caffeine use: Yes Place of Residence: Home Physical exam General: confused, NAD , on BiPAP HEENT: Atraumatic, EOMI Neck: Supple, Without JVD or thyroid abnormality Respiratory: Decreased air entry b/L , with basal rales Cardiovascular: Regular rate/rhythm, Normal S1 S2, No gallops, No rubs, No murmurs, Edema Gastrointestinal: Normal bowel sounds, Soft and benign, Non-distended, No ascites, No tenderness, No masses Musculoskeletal: Swelling, B?l leg dressing Conclusions/Impression: OTIS 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
[2019-09-25] MEDS: ATORVASTATIN 40 MG TAB PO SCH (21:46)
[2019-09-26] MEDS: FUROSEMIDE 100 MG in NA CHLORIDE 0.9% 90 ML IV SCH ×3 (02:00→10:53)
[2019-09-26] MEDS: DIPHENHYDRAMINE 25 MG TAB/CAP PO PRN (03:59)
[2019-09-26] MEDS: LEVOTHYROXINE SOD 0.025 MG TAB PO SCH (05:56)
[2019-09-26 06:03] VITALS: BMI 40.2
[2019-09-26] MEDS: INSULIN -REGULAR HUMAN 50 UNIT/0.5 ML ML SQ SCH (07:30)
[2019-09-26] MEDS: MEDIHONEY 44 ML TOPICAL TUBE TOP SCH (09:00)
[2019-09-26] MEDS: TAMSULOSIN 0.4 MG SR CAP PO SCH (09:24)
[2019-09-26] MEDS: METOLAZONE 5 MG TABLET PO SCH (09:24)
[2019-09-26] MEDS: PANTOPRAZOLE 40MG TABLET PO SCH (09:25)
[2019-09-26] MEDS: MIDODRINE HCL 5 MG TABLET PO SCH (09:25)
[2019-09-26] MEDS: CETIRIZINE HCL 5 MG TABLET PO SCH (09:25)
[2019-09-26] MEDS: JUVEN PACKET PO SCH (09:26)
[2019-09-26] MEDS ORDERED: ALBUTEROL 2.5 MG/3 ML NEB SOL NEB PRN (11:00)
--- NOTE | 2019-09-26 11:04 | P.DS ---
Admission Date: 09/21/19 Discharge Date: 09/26/19 Primary Care Provider: Unknown Disposition: [facility] Discharge Condition: GOOD Reason for Admission: Respiratory failure Consultations: Pulmonary-Dr. Kauffman Cardiology-Dr. Gagnon Nephrology-Dr. Key Procedures: Venous doppler: COMPARISON: May 2019 FINDINGS: The common femoral, superficial femoral, popliteal and posterior tibial veins bilaterally are compressible and demonstrate augmentation. Doppler demonstrates good flow. IMPRESSION: No evidence of deep venous thrombosis involving either lower extremity ECHO: Ejection fraction greater than 70% LEFT VENTRICULAR WALL MOTION: HYPERDYNAMIC. DOPPLER/COLOR FLOW: MILD MITRAL AND TRICUSPID REGURGITATION. MODERATE PULMONARY HYPERTENSION, ESTIMATED RIGHT VENTRICULAR SYSTOLIC PRESSURE 50mmHg. ESTIMATED RIGHT ATRIAL PRESSURE 15mmHg. COMMENTS: HYPERDYNAMIC LEFT VENTRICULAR EJECTION FRACTION. DILATED LEFT AND RIGHT ATRIUM. LEFT VENTRICULAR HYPERTORPHY. MILD AORTIC SCLEROSIS WITH NO AORTIC STENOSIS OR AORTIC REGURGITATION. MILD MITRAL AND TRICUSPID REGURGITATION. MODERATE PULMONARY HYPERTENSION, ELEVATED RIGHT ATRIAL PRESSURE. Follow up CXR: COMPARISON: September 24, September 23 TECHNIQUE: AP portable chest image was obtained 0818 hours . FINDINGS: Lung volumes remain low. Interstitial markings are prominent. Cardiomegaly and vascular engorgement remain. Trachea is midline. Small bilateral pleural effusions still suspected. No pneumothorax. No acute bony abnormality seen. No acute aortic findings suspected. IMPRESSION: CHF/volume overload pattern not substantially different from comparison. Medical Problem List: Acute on chronic respiratory failure secondary to acute on chronic diastolic congestive heart failure with moderate pulmonary hypertension Diffuse anasarca related to above Acute renal injury likely chronic renal disease stage IV Stage II sacral decubitus ulcer Cellulitis of the lower extremities Normocytic normochromic anemia likely chronic Diabetes mellitus type 2 [id number] Hypertension Hyperlipidemia Hypothyroidism Obstructive sleep apnea Atrial fibrillation not on anticoagulation GERD BPH Brief History of Present Illness: 83-year-old male with multiple medical problems including obstructive sleep apnea, Coronary artery disease, chronic renal disease stage III, CHF. Patient presented to the emergency room with increasing shortness of breath and swelling to the lower extremities. Patient takes diuretic therapy without success. In the ER for chest x-ray showed pulmonary edema. Patient with anasarca. Patient admitted for further evaluation and treatment. Hospital Course: Patient presented with shortness of breath and anasarca up. This was related to acute on chronic respiratory failure secondary to acute on chronic diastolic CHF with moderate pulmonary hypertension. During the course of his stay patient was treated with IV diuretic therapy. Patient required ICU treatment with IV Lasix drip. His condition has improved slowly. Patient now with better output with Lasix drip and albumin. Patient seen and evaluated by pulmonology and Cardiology. At discharge shortness of breath has significantly improved. Patient on nasal cannula. Patient remains on IV Lasix drip. At discharge patient will be transferred to long-term acute care facility to continue diuresis and treatment. Patient remains on IV Lasix drip with albumin and oxygen per nasal cannula. Patient also on metolazone 5 mg daily. Continue 1500 cc per day fluid restriction and low-salt diet. Patient previously on Bumex. Patient had diffuse anasarca with lower extremity swelling. Patient was evaluated for cellulitis but this was ruled out. Venous Doppler negative. Continue with IV Lasix and albumin drip. Continue fluid restriction. Patient had acute renal injury likely from chronic renal disease. Nephrology was consulted. Patient remains on diuresis. Patient may follow up with nephrology as an outpatient. Patient with diabetes mellitus type 2 non insulin dependent. At discharge patient remains on Accu-Cheks with sliding scale. This may be continued at long -term acute care facility. Patient previously on glipizide and Januvia. Patient with hypertension. Blood pressure medications currently on hold due to low blood pressure. Patient previously on carvedilol and hydralazine. Midodrine 10 mg twice daily has been added due to low blood pressure. Will need to consider restarting blood pressure medication if blood pressure increases. Will need to wean off Midodrine. This can be further addressed at the long-term acute care facility. Patient with hyperlipidemia. Patient may continue with medication-Lipitor 40 mg daily. Patient with hypothyroidism. Patient will continue with his medication- levothyroxine 25 mcg daily. Patient with atrial fibrillation. Rate has been controlled. Patient not a candidate for chronic anti coagulation therapy due to his chronic illnesses. Patient remains on DVT prophylaxis at this time. Patient with history of obstructive sleep apnea. Patient has been non compliant with CPAP at home. Patient to continue with CPAP at night. Patient with GERD. Patient may continue with Protonix 40 mg daily. Patient with BPH. Patient will continue with Flomax 0.4 mg daily. Vital Signs/Physical Exam: Temp Pulse Resp BP Pulse Ox 97.4 F 71 19 138/67 97 09/26/19 00:00 09/26/19 10:53 09/26/19 09:00 09/26/19 10:53 09/26/19 09:00 General: Alert, In no apparent distress, Oriented x3 HEENT: Atraumatic Neck: Supple Respiratory: Crackles/rales Cardiovascular: Other (Atrial fibrillation rate controlled) Gastrointestinal: Normal bowel sounds, Soft and benign, Non-distended Integumentary: Tenderness/swelling (Edema to the lower extremities has significantly improved.) Neurological: Normal speech, Normal strength at 5/5 x4 extr, Normal tone Laboratory Data at Discharge: WBC 4.8 K/uL (4.3-10.9) 09/25/19 05:22 Hgb 8.6 g/dL (13.6-17.9) L 09/25/19 05:22 Hct 27.3 % (39.6-49.0) L 09/25/19 05:22 Plt Count 77 K/uL (152-406) L D 09/25/19 05:22 PT 15.6 SECONDS (9.5-12.5) H 09/25/19 09:46 INR 1.34 09/25/19 09:46 APTT 40.6 SECONDS (24.3-36.9) H 09/25/19 09:46 Sodium 139 mmol/L (136-145) 09/25/19 05:22 Potassium 4.4 mmol/L (3.5-5.1) 09/25/19 05:22 BUN 88 mg/dL (7-18) H 09/25/19 05:22 Creatinine 2.35 mg/dL (0.55-1.3) H 09/25/19 05:22 Glucose 109 mg/dL (74-106) H 09/25/19 05:22 Magnesium 2.5 mg/dL (1.8-2.4) H 09/25/19 05:22 Total Bilirubin 0.5 mg/dL (0.2-1.0) 09/22/19 05:57 AST 13 U/L (15-37) L 09/22/19 05:57 ALT 21 U/L (12-78) 09/22/19 05:57 Alkaline Phosphatase 91 U/L (45-117) 09/22/19 05:57 Home Medications: Levothyroxine [Synthroid*] 25 mcg PO [id number] 05/20/19 Sitagliptin Phosphate [Januvia*] 50 mg PO DAILY 05/20/19 Tamsulosin HCl [Flomax] 0.4 mg PO DAILY 05/20/19 Atorvastatin Calcium [Lipitor] 40 mg PO BEDTIME #30 tab 09/04/19 Diphenhydramine [Benadryl*] 25 mg PO Q6H PRN #30 tab 09/04/19 Hydralazine [Apresoline*] 20 mg PO BID #30 tab 09/04/19 Pantoprazole [Protonix Tab*] 40 mg PO DAILY #30 tab 09/04/19 carvediloL [Coreg*] 25 mg PO BID #60 tab 09/04/19 Gabapentin [Gralise] 300 mg PO DAILY 09/11/19 Albuterol Neb [Proventil 0.083% Neb Soln] 2.5 mg NEB [id number] #120 amp 09/15/19 Bumetanide [Bumex*] 2 mg PO BID #60 tab 09/15/19 Collagenase [Santyl Ointment*] 1 appl TOP DAILY #1 tube 09/15/19 Ipratropium Neb [Atrovent*] 0.5 mg NEB [id number] #120 amp 09/15/19 Patient Discharge Instructions: 1. Patient be transferred to long-term acute care facility. 2. Patient presented with shortness of breath and anasarca up. This was related to acute on chronic respiratory failure secondary to acute on chronic diastolic CHF with moderate pulmonary hypertension. During the course of his stay patient was treated with IV diuretic therapy. Patient required ICU treatment with IV Lasix drip. His condition has improved slowly. Patient now with better output with Lasix drip and albumin. Patient seen and evaluated by pulmonology and Cardiology. At discharge shortness of breath has significantly improved. Patient on nasal cannula. Patient remains on IV Lasix drip. At discharge patient will be transferred to long-term acute care facility to continue diuresis and treatment. Patient remains on IV Lasix drip with albumin and oxygen per nasal cannula. Patient also on metolazone 5 mg daily. Continue 1500 cc per day fluid restriction and low-salt diet. Patient previously on Bumex. 3. Patient had diffuse anasarca with lower extremity swelling. Patient was evaluated for cellulitis but this was ruled out. Venous Doppler negative. Continue with IV Lasix and albumin drip. Continue fluid restriction. 4. Patient had acute renal injury likely from chronic renal disease. Nephrology was consulted. Patient remains on diuresis. Patient may follow up with nephrology as an outpatient. 5. Patient with diabetes mellitus type 2 non insulin dependent. At discharge patient remains on Accu-Cheks with sliding scale. This may be continued at long-term acute care facility. Patient previously on glipizide and Januvia. 6. Patient with hypertension. Blood pressure medications currently on hold due to low blood pressure. Patient previously on carvedilol and hydralazine. Midodrine 10 mg twice daily has been added due to low blood pressure. Will need to consider restarting blood pressure medication if blood pressure increases. Will need to wean off Midodrine. This can be further addressed at the long-term acute care facility. 7. Patient with hyperlipidemia. Patient may continue with medication-Lipitor 40 mg daily. 8. Patient with hypothyroidism. Patient will continue with his medication-levothyroxine 25 mcg daily. 9. Patient with atrial fibrillation. Rate has been controlled. Patient not a candidate for chronic anti coagulation therapy due to his chronic illnesses. Patient remains on DVT prophylaxis at this time. 10. Patient with history of obstructive sleep apnea. Patient has been non compliant with CPAP at home. Patient to continue with CPAP at night. 11. Patient with GERD. Patient may continue with Protonix 40 mg daily. 12. Patient with BPH. Patient will continue with Flomax 0.4 mg daily. Diet: ADA Activity: Fall precautions Time spent managing pt's care (in minutes): 55
[2019-09-26 11:32] VITALS: O2SAT 93
--- NOTE | 2019-09-26 21:01 | PN ---
Date of Progress Note: 09/26/2019 Mr. Soto remains in the ICU. He is a do not resuscitate. Has remained in atrial fibrillation at a rate in 50 to 60. Normal blood pressure. O2 saturation on CPAP remains normal. Creatinine is imp roving. Ejection fraction is more than 70% with moderate pulmonary hypertension. He is continuing I V diuresis and is improving slowly. We will continue present regimen. I have no further recommendat ion regarding Mr. Soto at this point. I will sign off his case. Case was discussed with Dr. Santos as. I will be available for questions if the need arises. NB/MODL Voice ID: [id number] Report ID: [id number]
[2019-09-27 01:05] VITALS: TEMP 96.9
[2019-09-27 01:06] VITALS: BP 119/57
--- NOTE | 2019-09-27 04:01 | PN ---
Date of Progress Note: 09/26/2019 Chief Complaint: Chronic kidney disease, congestive heart failure and COPD exacerbation. History Of Present Illness: Patient was admitted for severe dyspnea at rest and fluid overload. Cynthia greer was taking Bumex daily although he required Lasix drip during this admission and was treated wit h metolazone. Patient had altered mental status, was found to have respiratory acidosis, was started on BiPAP and t ransferred to ICU. Patient has obstructive sleep apnea, atrial fibrillation and history of chronic k idney disease stage 3. Review of Systems: Patient is feeling better. Denies PND, orthopnea. Physical Examination: Lungs: Diminished breath sounds at bases, crackles present, few rhonchi. Heart: S1, S2. No pericardial friction rub. Abdomen: Obese, soft, nontender. Extremities: Edema in upper and lower extremities. Laboratory Data: Sodium 139, potassium 4.4, chloride 101, CO2 of 30, BUN 88, creatinine 2.35, magnes ium 2.5, calcium 8.1. Impression And Plan: 1.Acute on chronic kidney injury nonoliguric associated with severe fluid overload. Continue Lasix drip. Monitor electrolytes including magnesium and plan replacement accordingly. 2.Hypertension, blood pressure control. Patient developed hypotension and was started on midodrine. Plan is to wean midodrine. 3.Obesity and obstructive sleep apnea. Continue BiPAP. 4.Fluid overload. Continue diuretic and low-sodium diet. Patient is on Lasix drip. EB/MODL Voice ID: [id number] Report ID: [id number]
== END 2019-09-26 11:10 | DRG 291 ==
LOC: ER 11:41 → ERHOLD 15:04 → 4TH 20:26 → 3RD-ICU 09-23 12:34
PROVIDERS: ADMIT Family Medicine; ATTEND Family Medicine
PROC: 5A09457 Assistance with Respiratory Ventilation, 24-96 Consecutive Hours, Continuous Positive Airway Pressure (ICD-10-PCS; principal; 2019-09-23)
DX: I13.0 Hypertensive heart and chronic kidney disease with heart failure and stage 1 through stage 4 chronic kidney disease, or unspecified chronic kidney disease (principal); I50.33 Acute on chronic diastolic (congestive) heart failure; J96.20 Acute and chronic respiratory failure, unspecified whether with hypoxia or hypercapnia; N17.9 Acute kidney failure, unspecified; L03.116 Cellulitis of left lower limb; L03.115 Cellulitis of right lower limb; I48.92 Unspecified atrial flutter; E87.2 Acidosis; N18.4 Chronic kidney disease, stage 4 (severe); J44.1 Chronic obstructive pulmonary disease with (acute) exacerbation; Z68.41 Body mass index [BMI] 40.0-44.9, adult; E11.22 Type 2 diabetes mellitus with diabetic chronic kidney disease; E11.65 Type 2 diabetes mellitus with hyperglycemia; E11.69 Type 2 diabetes mellitus with other specified complication; S91.102A Unspecified open wound of left great toe without damage to nail, initial encounter; E66.01 Morbid (severe) obesity due to excess calories; I48.91 Unspecified atrial fibrillation; L89.152 Pressure ulcer of sacral region, stage 2; I27.20 Pulmonary hypertension, unspecified; E78.2 Mixed hyperlipidemia; D63.8 Anemia in other chronic diseases classified elsewhere; G47.33 Obstructive sleep apnea (adult) (pediatric); Z66 Do not resuscitate; Z99.81 Dependence on supplemental oxygen; Z86.711 Personal history of pulmonary embolism
CPT/HCPCS: 36415; 51702; 71045; 80048; 80053; 81003; 82533; 82805; 82947; 83010; 83615; 83735; 83880; 84145; 84439; 84443; 84484; 85025; 85610; 85730; 93005; 93306; 93970; 94640; 94660; 94760; 96374; 97161; 97530; 99251; 99285; J0692; J1650; J1940; J3590; J7040; P9047

== ENCOUNTER 2019-12-02 15:28 | Inpatient (IN) | payer OTHER ==
--- OUTSIDE RECORDS SUMMARY | 2019-12-02 15:31 | XMS REPORT ---
:1935 [facility] Address [address] [place] [address] Dr. Varela [address] [place] [id number] Care Team Providers Name Role Phone ANTHONY [...] 2019-06-16 2019-06-16 Outpatient C SIMÓN Gayatri RAD [id number] 15:18:00 23:59:00 ANTHONY Results Test Description Test Time Test Comments Text Results Atomic Results Result Comments NM LUNG (V/Q ) SCAN*WW* 2019-06-16 16:46:52 Radionuclide ventilation/ perfusion lung scanLocation Code: [id number]: Shortness of breathCOMPARISON: NoneCOMMENT: Routine images of [...] (ISHAAN) (test 157 mg/dL 70-110 TESTED AT [facility] [id number]) [facility] [id number]
--- OUTSIDE RECORDS SUMMARY | 2019-12-02 15:31 | XMS REPORT ---
[...] Status Dosage System Date Date HydrALAZINE HCl [facility] 05202483887 10 MG Orally Apr 30, Active 1 tablet Four times a 2017 with food day Januvia ND 01916359605 50 MG Orally Active as directed NovoLog ND 83433665614 100 UNIT/ML Active as Subcutaneous directed Gabapentin [facility] 66144214329 400 MG Orally Active 1 capsule Twice a day Tramadol HCl ND 49756280567 50 MG Oral Active (Schedule IV Drug) TAKE ONE (1) TO TWO (2) TABLET(S) BY MOUTH THREE TIMES A DAY NEEDED. Coreg ND 34999690987 3.125 MG Orally Active as directed Lantus ND 15641656747 100 UNIT/ML Active as Subcutaneous directed lasix NDC 0 Oral Active 1 tab Linzess ND 80005856609 290 mcg Active not defined Levothyroxine ND 91999859093 25 MCG Oral Active (Prior Sodium Auth: Rx Ref#:[id number]) Flomax [facility] [address]-79 0.4 MG Orally Active 1 capsule Once a day 30 minutes after the same meal each day Results No Known Results Summary Purpose eClinicalWorks Submission
[2019-12-02 18:29] LABS: Absolute Lymphocytes (CBC) 1.1 K/uL (0.7-4.9); Basophils % 0.6 % (0-1.3); Hematocrit 30.8 % (39.6-49.0); Lymphocytes % 9.5 % (15.3-44.8); MPV 6.9 fL (7.6-11.3); RBC Red Blood Cell Count 3.62 M/uL (4.33-5.43)
[2019-12-02 18:38] LABS: Protime INR 1.22
--- NOTE | 2019-12-02 18:39 | RAD REPORT ---
EXAM DESCRIPTION: RAD - Foot Left 3 View - 12/02/2019 6:17 pm CLINICAL HISTORY: Left foot pain FINDINGS: Lucencies within the distal aspect of the first proximal phalanx and proximal aspect of the first dis emily phalanx compatible with osteomyelitis. Cortical regularity of may indicate pathologic fracture. No dislocation
[2019-12-02 18:47] LABS: Albumin 2.6 g/dL (3.4-5.0); Bilirubin Direct 0.1 mg/dL (0-0.2); Bilirubin Total 0.3 mg/dL (0.2-1.0); Potassium 4.1 mmol/L (3.5-5.1); Protein, Total 8.3 g/dL (6.4-8.2)
[2019-12-02] MEDS ORDERED: NA CHLORIDE 0.9% 500 ML ONE (19:12)
[2019-12-02] MEDS ORDERED: VANCOMYCIN 1 GM/VIAL ONE (19:12)
[2019-12-02] MEDS ORDERED: PIPER/TAZO/NS 3.375gm 3.375 GM/100 ML BAG ONE (19:13)
--- NOTE | 2019-12-02 19:22 | EDPHYS ---
Physician Documentation [facility] Name: Jimmy Soto Age: 84 yrs Sex: Male : 1935 Arrival Date: 12/02/2019 Time: 15:33 Bed 18 Private MD: ED Physician Virgilio Gomez HPI: 12/01 17:50 This 84 yrs old Male presents to ER via Ambulatory with complaints of cp COMPLICATIONS WITH A WOULD ON THE TOE OF THE LEFT FOOT. ALSO LEG SWELLING ON THE LEFT LEG.. 17:50 The patient presents with pain, swelling, tenderness. The complaints affect the dorsum cp of left foot and left lower leg. 17:50 Context: history of open wound to left great toe. Associated signs and symptoms: cp Pertinent positives: calf tenderness, warmth, Pertinent negatives fever. Daughter reports patient was seen by DR Licea 1 week ago in wound care clinic and wound of left great toe was debrided. Patient currently taking Cipro and Doxycycline antibiotics. Historical: - Allergies: 18:51 No Known Allergies; vc - Home Meds: 18:50 atorvastatin 40 mg Oral tab 1 tab once daily [Active]; pantoprazole 40 mg Oral TbEC 1 vc tab once daily [Active]; Synthroid 50 mcg oral tab [Active]; tamsulosin 0.4 mg Oral cp24 1 cap once daily [Active]; hydroxyzine HCl 25 mg Oral tab 1 tab 3 times per day [Active]; metolazone 10 mg oral tab every other day [Active]; glipizide 5 mg Oral tab 1 tab 2 times per day [Active]; spironolactone 25 mg Oral tab 1 tab once daily [Active]; Klor-Con M20 20 mEq Oral TbTQ 1 tab 2 times per day [Active]; furosemide 80 mg Oral tab 1 tab 2 times per day [Active]; metoprolol tartrate 25 mg Oral tab 1 tab once daily [Active]; Cipro 500 mg Oral tab 1 tab 2 times per day [Active]; doxycycline hyclate 100 mg Oral cap 1 cap 2 times per day [Active]; - PMHx: 18:50 Cellulitis; CHF; COPD; Diabetes - IDDM; Hyperlipidemia; Hypertension; leg vc swelling/sores; Pneumonia; - PSHx: 18:50 cesar arms; R hip; vc - Immunization history:: Adult Immunizations up to date. - Social history:: Smoking status: Patient denies any tobacco usage or history of. ROS: 18:00 Constitutional: Negative for body aches, chills, fever, poor PO intake. cp 18:00 Eyes: Negative for injury, pain, redness, and discharge. cp 18:00 ENT: Negative for drainage from ear(s), ear pain, sore throat, difficulty swallowing, difficulty handling secretions. 18:00 Cardiovascular: Negative for chest pain. 18:00 Respiratory: Negative for cough, shortness of breath, wheezing. 18:00 Abdomen/GI: Negative for abdominal pain, nausea, vomiting, and diarrhea. 18:00 MS/extremity: Positive for erythema, swelling, tenderness, of the left lower leg. 18:00 Skin: Positive for erythema, swelling, of the left great toe, open wound. 18:00 Neuro: Negative for altered mental status, headache, weakness. 18:00 All other systems are negative. Exam: 18:05 Constitutional: The patient appears in no acute distress, alert, awake, cp non-diaphoretic, non-toxic, well developed, well nourished. 18:05 Head/Face: Normocephalic, atraumatic. cp 18:05 Eyes: Periorbital structures: appear normal, Conjunctiva: normal, no exudate, no injection, Sclera: no appreciated abnormality, Lids and lashes: appear normal, bilaterally. 18:05 ENT: External ear(s): are unremarkable, Nose: is normal, Mouth: Lips: moist, Oral mucosa: pink and intact, moist, Posterior pharynx: is normal, airway is patent, no erythema, no exudate. 18:05 Chest/axilla: Inspection: normal, Palpation: is normal, no crepitus, no tenderness. 18:05 Cardiovascular: Rate: normal, Rhythm: irregular, JVD: is not appreciated. 18:05 Respiratory: the patient does not display signs of respiratory distress, Respirations: normal, no use of accessory muscles, labored breathing, is not present, Breath sounds: are clear throughout, no decreased breath sounds. 18:05 Abdomen/GI: Inspection: abdomen appears normal, Palpation: abdomen is soft and non-tender, in all quadrants. 18:05 Back: pain, is absent. 18:05 Skin: cellulitis, that is moderate, well demarcated, on the left foot and left lower leg, open wound noted distal phalanx left great toe. Vital Signs: 15:57 BP 127 / 68; Pulse 80; Resp 20; Temp 99.5; Pulse Ox 96% on R/A; Weight 99.79 kg; Height dm5 5 ft. 7 in. (170.18 cm); Pain 6/10; 19:30 BP 121 / 42; Pulse 71; Resp 18; Pulse Ox 99% on R/A; wh 21:00 BP 120 / 60; Pulse 71; Resp 18; Pulse Ox 94% on R/A; wh 22:30 BP 128 / 48; Pulse 70; Resp 18; Pulse Ox 96% on R/A; wh 15:57 Body Mass Index 34.46 (99.79 kg, 170.18 cm) dm5 MDM: 17:48 Patient medically screened. cp 18:40 Differential diagnosis: cellulitis, DVT, abscess, osteomyelitis. cp 18:51 Physician consultation: Bubba Licea MD was contacted at 18:45, regarding consult, cp patient's condition, will not be available for consult and will be out of town through weekend. 19:16 Data reviewed: vital signs, nurses notes, lab test result(s), EKG, radiologic studies, cp plain films, and as a result, I will admit patient. 12/01 17:59 Order name: Wound Culture 12/01 17:59 Order name: Basic Metabolic Panel; Complete Time: 18:50 12/01 18:50 Interpretation: Normal except: NA 128; CL 91; GLUC 144; BUN 67; CRE 2.03; GFR 32. 12/01 17:59 Order name: Blood Culture Adult (2) 12/01 17:59 Order name: CBC with Diff; Complete Time: 18:42 cp 12/01 18:42 Interpretation: Normal except: WBC 11.2; RBC 3.62; HGB 10.0; HCT 30.8; MPV 6.9; JOHN% cp 78.1; LYM% 9.5; NEUT A 8.7. 12/01 17:59 Order name: Lactate; Complete Time: 18:50 12/01 17:59 Order name: LFT's; Complete Time: 18:50 12/01 19:15 Interpretation: Normal except: AST 11; TP 8.3; ALB 2.6; GLOB 5.7; A/G 0.5. cp 12/01 17:59 Order name: Procalcitonin; Complete Time: 19:08 cp 12/01 17:59 Order name: Protime (+inr); Complete Time: 19:08 cp 12/01 19:08 Interpretation: Abnormal: PT 14.3. cp 12/01 17:59 Order name: Ptt, Activated; Complete Time: 19:08 cp 12/01 17:59 Order name: Urine Microscopic Only cp 12/01 20:42 Order name: Urinalysis EDMS 12/01 20:42 Order name: Basic Metabolic Panel EDMS 12/01 20:42 Order name: Basic Metabolic Panel EDMS 12/01 20:42 Order name: CBC with Automated Diff EDMS 12/01 20:43 Order name: CBC with Automated Diff EDMS 12/01 20:43 Order name: Comprehensive Metabolic Panel EDMS 12/01 20:43 Order name: Comprehensive Metabolic Panel EDMS 12/01 20:43 Order name: Lactate EDMS 12/01 20:43 Order name: Lactate EDMS 12/01 20:43 Order name: Magnesium EDMS 12/01 20:43 Order name: Magnesium EDMS 12/01 20:43 Order name: Phosphorus EDMS 12/01 20:43 Order name: Phosphorus EDMS 12/01 20:43 Order name: NT PRO-BNP EDMS 12/01 20:43 Order name: NT PRO-BNP EDMS 12/01 20:43 Order name: Thyroid Stimulating Hormone EDMS 12/01 20:43 Order name: Thyroid Stimulating Hormone EDMS 12/01 22:43 Order name: Urine Dipstick--Ancillary (enter results) mw2 12/02 00:01 Order name: Urine Dipstick-Ancillary EDMS 12/02 08:48 Order name: CBC Smear Scan EDMS 12/01 17:59 Order name: XRAY Foot LEFT 3 View; Complete Time: 18:47 cp 12/01 18:47 Interpretation: Reviewed report. cp 12/01 17:59 Order name: Accucheck; Complete Time: 18:39 cp 12/01 17:59 Order name: Cardiac monitoring; Complete Time: 18:55 cp 12/01 17:59 Order name: EKG - Nurse/Tech; Complete Time: 18:55 cp 12/01 17:59 Order name: IV Saline Lock - Large Bore; Complete Time: 18:55 12/01 17:59 Order name: Labs collected and sent; Complete Time: 19:05 12/01 17:59 Order name: O2 Per Protocol; Complete Time: 19:05 12/01 17:59 Order name: O2 Sat Monitoring; Complete Time: 19:05 12/01 17:59 Order name: Urine Dipstick-Ancillary (obtain specimen); Complete Time: 22:45 12/01 17:59 Order name: US Extremity Venous Unilateral Ltd; Complete Time: 20:25 12/01 20:25 Interpretation: Report reviewed. 12/01 20:42 Order name: CONS Pharmacy Consult [facility] 12/01 20:42 Order name: CONS Pharmacy Consult [facility] 12/01 20:42 Order name: CONS Physician Consult [facility] 12/01 20:42 Order name: CONS Physician Consult [facility] 12/01 20:42 Order name: Heart Healthy [facility] 12/01 20:42 Order name: Renal [facility] 12/02 08:47 Order name: MRI EDMD Administered Medications: 19:19 Drug: Zosyn 3.375 grams Route: IVPB; Infused Over: 60 mins; Site: right antecubital; 20:25 Follow up: Response: No adverse reaction; IV Status: Completed infusion 20:24 Drug: vancoMYCIN 1 grams Route: IVPB; Infused Over: 2 hrs; Site: left antecubital; 22:45 Follow up: Response: No adverse reaction; IV Status: Completed infusion 20:25 Drug: Lovenox 1 mg/kg Route: Sub-Q; Site: left lower abdomen; 22:43 Follow up: Response: No adverse reaction Disposition: 12/02 07:09 Co-signature as Attending Physician, Virgilio Gomez MD I agree with the assessment and kdr plan of care. Disposition: 12/02/19 19:20 Hospitalization ordered by Pablo Barriga for Inpatient Admission. Preliminary diagnosis are Cellulitis of left lower limb, Unspecified atrial fibrillation, Unspecified kidney failure, Osteomyelitis - Distal phalanx left great toe. - Bed requested for Telemetry/MedSurg (Inpatient). - Status is Inpatient Admission. rb1 - Condition is Stable. - Problem is an ongoing problem. - Symptoms have improved. Signatures: Dispatcher [employer] EDMS May Montes RN RN dw Rittger, Kevin, MD MD [facility] Omar Tanner PA PA cp Reshma Willis RN RN [facility] Ralph Pacheco Elisha Story RN RN Corrections: (The following items were deleted from the chart) 12/01 19: 19:20 Hospitalization Ordered by Pablo Barriga MD for Inpatient Admission. Preliminary cp diagnosis is Cellulitis of left lower limb; Unspecified atrial fibrillation; Unspecified kidney failure. Bed requested for Telemetry/MedSurg (Inpatient). Status is Inpatient Admission. Condition is Stable. Problem is an ongoing problem. Symptoms have improved. cp : 19:22 12/02/2019 19:20 Hospitalization Ordered by Pablo Barriga MD for Inpatient dw Admission. Preliminary diagnosis is Cellulitis of left lower limb; Unspecified atrial fibrillation; Unspecified kidney failure; Osteomyelitis - Distal phalanx left great toe. Bed requested for Telemetry/MedSurg (Inpatient). Status is Inpatient Admission. Condition is Stable. Problem is an ongoing problem. Symptoms have improved. cp 12/02 09:01 12/01 22:09 12/02/2019 19:20 Hospitalization Ordered by Pablo Barriga MD for Inpatient dw Admission. Preliminary diagnosis is Cellulitis of left lower limb; Unspecified atrial fibrillation; Unspecified kidney failure; Osteomyelitis - Distal phalanx left great toe. Bed requested [facility] ER HOLD. Status is Inpatient Admission. Condition is Stable. Problem is an ongoing problem. Symptoms have improved. 12/02 10:45 09:12/02/2019 19:20 Hospitalization Ordered by Pablo Barriga MD for Inpatient rb1 Admission. Preliminary diagnosis is Cellulitis of left lower limb; Unspecified atrial fibrillation; Unspecified kidney failure; Osteomyelitis - Distal phalanx left great toe. Bed requested for Telemetry/MedSurg (Inpatient). Status is Inpatient Admission. Condition is Stable. Problem is an ongoing problem. Symptoms have improved.
--- NOTE | 2019-12-02 19:22 | ER ---
Nurse's Notes [facility] Name: Jimmy Soto Age: 84 yrs Sex: Male : 1935 Arrival Date: 12/02/2019 Time: 15:33 Bed 18 Private MD: Diagnosis: Cellulitis of left lower limb;Unspecified atrial fibrillation;Unspecified kidney failure;Osteomyelitis-Distal phalanx left great toe Presentation: 12/01 15:57 Chief complaint: Patient states: seen by luis miguel last week and had an ulcer cleaned out dm5 in office and has been on antibiotics about 2-3 weeks. wound has gotten worse and leg is red now. Coronavirus screen: The patient has NOT traveled to a country currently being monitored by the CDC within the last 14 days. The patient has NOT had contact with any known and/or suspected case of coronavirus. Proceed with normal triage procedures. Ebola Screen: Patient negative for fever greater than or equal to 101.5 degrees Fahrenheit, and additional compatible Ebola Virus Disease symptoms Patient denies exposure to infectious person. Patient denies travel to an Ebola-affected area in the 21 days before illness onset. No symptoms or risks identified at this time. Initial Sepsis Screen: Does the patient meet any 2 criteria? No. Patient's initial sepsis screen is negative. Does the patient have a suspected source of infection? Yes: Skin breakdown/wound. Risk Assessment: Do you want to hurt yourself or someone else? Patient reports no desire to harm self or others. 15:57 Method Of Arrival: Ambulatory dm5 15:57 Acuity: ART 3 dm5 19:15 Onset of symptoms is unknown. wh Historical: - Allergies: 18:51 No Known Allergies; vc - Home Meds: 18:50 atorvastatin 40 mg Oral tab 1 tab once daily [Active]; pantoprazole 40 mg Oral TbEC 1 vc tab once daily [Active]; Synthroid 50 mcg oral tab [Active]; tamsulosin 0.4 mg Oral cp24 1 cap once daily [Active]; hydroxyzine HCl 25 mg Oral tab 1 tab 3 times per day [Active]; metolazone 10 mg oral tab every other day [Active]; glipizide 5 mg Oral tab 1 tab 2 times per day [Active]; spironolactone 25 mg Oral tab 1 tab once daily [Active]; Klor-Con M20 20 mEq Oral TbTQ 1 tab 2 times per day [Active]; furosemide 80 mg Oral tab 1 tab 2 times per day [Active]; metoprolol tartrate 25 mg Oral tab 1 tab once daily [Active]; Cipro 500 mg Oral tab 1 tab 2 times per day [Active]; doxycycline hyclate 100 mg Oral cap 1 cap 2 times per day [Active]; - PMHx: 18:50 Cellulitis; CHF; COPD; Diabetes - IDDM; Hyperlipidemia; Hypertension; leg vc swelling/sores; Pneumonia; - PSHx: 18:50 cesar arms; R hip; vc - Immunization history:: Adult Immunizations up to date. - Social history:: Smoking status: Patient denies any tobacco usage or history of. Screenin:51 Abuse screen: Denies threats or abuse. Nutritional screening: No deficits noted. vc Tuberculosis screening: No symptoms or risk factors identified. Fall Risk None identified. Assessment: 19:10 General: Appears in no apparent distress. comfortable, Behavior is calm, cooperative, vc appropriate for age. Pain: Complains of pain in left first toe. Neuro: Level of Consciousness is awake, alert, obeys commands, Oriented to person, place, time, situation, Appropriate for age. Cardiovascular: Patient's skin is warm and dry. Respiratory: Respiratory effort is even, unlabored, Respiratory pattern is regular, symmetrical, GI: No signs and/or symptoms were reported involving the gastrointestinal system. : No signs and/or symptoms were reported regarding the genitourinary system. EENT: No signs and/or symptoms were reported regarding the EENT system. Derm: Wound noted left first toe, medial aspect of left toes and Left first toenail. Musculoskeletal: Circulation, motion, and sensation intact. Range of motion: intact in all extremities. 20:15 Reassessment: Patient appears in no apparent distress at this time. No changes from previously documented assessment. Patient and/or family updated on plan of care and expected duration. Pain level reassessed. Patient is alert, oriented x 3, equal unlabored respirations, skin warm/dry/pink. 20:30 Reassessment: Upon walking in the room was notified by daughter that she has given all wh his night time medicines. Will relay to Admitting nurse. 22:00 Reassessment: Patient appears in no apparent distress at this time. No changes from previously documented assessment. Patient and/or family updated on plan of care and expected duration. Pain level reassessed. Patient is alert, oriented x 3, equal unlabored respirations, skin warm/dry/pink. Explained POC need for admit, for now will stay as ER Hold. 12/02 10:29 Reassessment: Called report to GENA Aponte. Information from the SBAR was given. All rb1 questions asked and answered. Vital Signs: 12/01 15:57 BP 127 / 68; Pulse 80; Resp 20; Temp 99.5; Pulse Ox 96% on R/A; Weight 99.79 kg; Height dm5 5 ft. 7 in. (170.18 cm); Pain 6/10; 19:30 BP 121 / 42; Pulse 71; Resp 18; Pulse Ox 99% on R/A; wh 21:00 BP 120 / 60; Pulse 71; Resp 18; Pulse Ox 94% on R/A; wh 22:30 BP 128 / 48; Pulse 70; Resp 18; Pulse Ox 96% on R/A; wh 15:57 Body Mass Index 34.46 (99.79 kg, 170.18 cm) dm5 ED Course: 15:33 Patient arrived in ED. fj1 16:03 Triage completed. [facility] 17:26 Omar Tanner PA is PHCP. cp 17:26 Virgilio Gomez MD is Attending Physician. cp 17:45 Inserted saline lock: 22 gauge in left antecubital area, using aseptic technique. wh 18:00 Arm band placed on. vc 18:00 Patient has correct armband on for positive identification. vc 18:01 Elisha Story, GENA is Primary Nurse. vc 18:17 XRAY Foot LEFT 3 View In Process Unspecified. EDMS 18:17 Inserted saline lock: 22 gauge in right antecubital area, using aseptic technique. vc Blood collected. 19:09 Wound Culture Sent. vc 19:17 US Extremity Venous Unilateral Ltd In Process Unspecified. EDMS 19:19 Pablo Barriga MD is Hospitalizing Provider. cp 22:30 No provider procedures requiring assistance completed. Patient admitted, IV remains in place. Administered Medications: 19:19 Drug: Zosyn 3.375 grams Route: IVPB; Infused Over: 60 mins; Site: right antecubital; 20:25 Follow up: Response: No adverse reaction; IV Status: Completed infusion 20:24 Drug: vancoMYCIN 1 grams Route: IVPB; Infused Over: 2 hrs; Site: left antecubital; 22:45 Follow up: Response: No adverse reaction; IV Status: Completed infusion 20:25 Drug: Lovenox 1 mg/kg Route: Sub-Q; Site: left lower abdomen; 22:43 Follow up: Response: No adverse reaction Outcome: 19:20 Decision to Hospitalize by Provider. cp 22:30 Admitted to ER Hold. Please see [facility] for further documentation. 22:30 Condition: stable 22:30 Instructed on the need for admit. 12/02 10:45 Patient left the ED. rb1 10:45 Admitted to Med/surg accompanied by tech, via stretcher, room 211, with chart, Report rb1 called to GENA Aponte 10:45 Condition: stable 10:45 Instructed on the need for admit. Signatures: Dispatcher [employer] Sanaz Charles, RN RN dm5 Omar Tanner PA PA cp Barber, Rebecca, RN RN rb1 Ralph Pacheco Elisha Story RN RN vc James, Frank [facility]
[2019-12-02] MEDS ORDERED: ENOXAPARIN 100 MG/ML SYR SQ ONE (19:31)
--- NOTE | 2019-12-02 19:31 | RAD REPORT ---
EXAM DESCRIPTION: USExttayler Venous Uni Ltd12/02/2019 7:16 pm CLINICAL HISTORY: left leg pain and swelling. COMPARISON: None. FINDINGS: Left common femoral, superficial femoral, popliteal and posterior tibial veins are compre ssible and demonstrate augmentation. Doppler demonstrates good flow. A 3.4 x 1 centimeter lymph node probably reactive in nature. IMPRESSION: No evidence of deep venous thrombosis involving the left lower extremity.
[2019-12-02] MEDS ORDERED: ONDANSETRON 4 MG/2 ML VIAL IV PRN (20:33)
[2019-12-02] MEDS ORDERED: MORPHINE 2 MG/ML SYR IV PRN (20:33)
[2019-12-02] MEDS ORDERED: ACETAMINOPHEN 500 MG TAB PO PRN ×2 (20:33)
[2019-12-02] MEDS ORDERED: VANCOMYCIN/NS 1 gm 1 GM/250 ML BAG IVPB SCH (20:45)
[2019-12-02] MEDS: carvediloL 25 MG TAB PO SCH (21:00)
[2019-12-02] MEDS: ATORVASTATIN 40 MG TAB PO SCH (21:00)
[2019-12-02] MEDS: HYDRALAZINE HCL 10 MG TABLET PO SCH (21:00)
[2019-12-02] MEDS: NA CHLORIDE 0.9% 1,000 ML IV SCH (21:00)
[2019-12-02] MEDS ORDERED: NA CHLORIDE 0.9% 1,000 ML IV SCH (21:00)
[2019-12-02] MEDS ORDERED: Levofloxacin500mg IV 500 MG/100 ML BAG IV ONE ×2 (21:00→23:41)
[2019-12-02] MEDS: BUMETANIDE 1 MG TABLET PO SCH (21:00)
[2019-12-02] MEDS ORDERED: VANCOMYCIN 750 MG in NA CHLORIDE 0.9% 150 ML IVPB ONE (21:15)
[2019-12-02 22:51] VITALS: BMI 34.4
[2019-12-02] MEDS ORDERED: Levofloxacin 750mg IV 750 MG/150 ML BAG IV ONE (23:33)
[2019-12-02] MEDS ORDERED: NA CHLORIDE 0.9% 1,000 ML ONE (23:33)
[2019-12-02 23:58] LABS: Urine Blood 1+ (NEG); Urine Glucose NEGATIVE (NEG); Urine Protein 1+ (NEG)
[2019-12-03 00:26] LABS: Urine Culture Reflex Order NOT NEEDED; Urine Urothelial Cells <5 /HPF (NONE SEEN)
[2019-12-03 00:27] LABS: Urine Bacteria <20 /HPF (NONE SEEN); Urine RBC <5 /HPF (NONE SEEN)
[2019-12-03] MEDS ORDERED: NA CHLORIDE 0.9% 250 ML ONE ×2 (00:52→01:46)
[2019-12-03] MEDS ORDERED: VANCOMYCIN 1 GM/VIAL ONE (00:52)
--- NOTE | 2019-12-03 04:20 | P.HP ---
Certification for Inpatient Patient admitted to: Inpatient With expected LOS: >2 Midnights Patient will require the following post-hospital care: None Practitioner: I am a practitioner with admitting privileges, knowledge of patient current condition, hospital course, and medical plan of care. Services: Services provided to patient in accordance with Admission requirements found in Title 42 Section 412.3 of the Code of Federal Regulations Patient History Date of Service: 12/02/19 Reason for admission: Osteomyelitis of the left foot History of Present Illness: Patient is an 84-year-old gentleman who came into the hospital with pain in his left foot. Patient was seen a few weeks ago by surgery, Dr. Licea, at [facility]. Patient had an ulcer clean doubt it was started on antibiotic therapy over the last 2-3 weeks. However, patient's wound has continued to worsen. Patient came into the ER for further evaluation. In the emergency room patient had a x-ray of the foot which revealed lucencies within the distal aspect of the first proximal phalanx and proximal aspect of the first distal phalanx compatible with osteomyelitis. Patient had cortical irregularity seen on the x-ray which may indicate a pathologic fracture. At this time, patient will be admitted to the hospital for further evaluation. Allergies No Known Allergies Allergy (Verified 01/19/18 04:44) Home Medications: Atorvastatin Calcium 40 mg PO DAILY 12/03/19 Furosemide 80 mg PO BID 12/03/19 Hydroxyzine HCl [Atarax] 25 mg PO TID 12/03/19 Levothyroxine Sodium [Synthroid] 50 mcg PO DAILY 12/03/19 Metolazone [Zaroxolyn] 10 mg PO DIRECTED 12/03/19 Metoprolol Tartrate 25 mg PO DAILY 12/03/19 Pantoprazole [Protonix Tab*] 40 mg PO DAILY 12/03/19 Potassium Chloride [Klor-Con 10] 20 meq PO BID 12/03/19 Spironolactone 25 mg PO DAILY 12/03/19 Tamsulosin [Flomax*] 1 tab PO DAILY 12/03/19 glipiZIDE [Glipizide] 5 mg PO BID 12/03/19 - Past Medical/Surgical History Has patient received pneumonia vaccine in the past: Yes Diabetic: Yes -: HTN -: high cholesterol -: copd -: asbestosis -: MRSA foot w/ cellulitis -: PE -: Obstructive sleep apnea -: Atrial flutter -: CHF -: Edema -: Renal failure -: Bilateral wrist sx (f[place] and broke both wrist) -: cataract sx -: Right hip sx r/t fx - Family History Mother Notes: denies having family history of illness Father Notes: denies having family history of illness Sister Notes: denies having family history of illness Brother Notes: denies having family history of illness - Social History Smoking Status: Former smoker Alcohol use: No CD- Drugs: No Caffeine use: Yes Review of Systems 10-point ROS is otherwise unremarkable Physical Examination - Vital Signs Temperature: 101 F Blood Pressure: 130/80 Pulse: 88 Respirations: 18 Pulse Ox (%): 96 - Physical Exam General: Alert, In no apparent distress, Oriented x2 HEENT: Atraumatic, PERRLA, Mucous membr. moist/pink, EOMI, Sclerae nonicteric Neck: Supple, 2+ carotid pulse no bruit, No LAD, Without JVD or thyroid abnormality Respiratory: Clear to auscultation bilaterally, Normal air movement Cardiovascular: Regular rate/rhythm, Normal S1 S2, Systolic murmur Gastrointestinal: Normal bowel sounds, Soft and benign, Non-distended, No tenderness Musculoskeletal: No clubbing, No swelling, No tenderness Integumentary: No rashes Neurological: Normal speech, Normal tone, Sensation intact, Cranial nerves 3-12 intact, Normal affect, Abnormal strength (Strength is diminished/4/5) Lymphatics: No axilla or inguinal lymphadenopathy - Studies Laboratory Data (last 24 hrs) 12/02/19 18:15: PT 14.3 H, INR 1.22, APTT 34.2 12/02/19 18:15: WBC 11.2 H, Hgb 10.0 L, Hct 30.8 L, Plt Count 262 12/02/19 18:15: Sodium 128 L, Potassium 4.1, BUN 67 H, Creatinine 2.03 H, Glucose 144 H, Total Bilirubin 0.3, AST 11 L, ALT 15, Alkaline Phosphatase 81 Assessment & Plan - Problems (Diagnosis) (1) Osteomyelitis of foot, left, acute Current Visit: Yes Status: Acute (2) Benign prostate hyperplasia Current Visit: No Status: Acute (3) GERD (gastroesophageal reflux disease) Current Visit: No Status: Acute (4) Hyperlipidemia Current Visit: No Status: Acute (5) Hypertension Current Visit: No Status: Acute (6) Hypothyroidism Current Visit: No Status: Acute (7) Hypoxia Current Visit: No Status: Acute (8) Atrial fibrillation Current Visit: No Status: Chronic Qualifiers: Atrial fibrillation type: unspecified Qualified Code(s): I48.91 - Unspecified atrial fibrillation (9) Chronic kidney disease, stage 3 Current Visit: No Status: Chronic (10) Acute on chronic kidney failure Current Visit: Yes Status: Acute - Plan 1. Continue with IV antibiotic 2. Continue with local wound care 3. Wound care consultation/surgical consultation 4. Gentle IV hydration 5. Monitor CBC 6. Strict blood sugar monitoring 7. Pain control 8. Resume cardiac medications 9. Nephrology consultation 10. General surgery input pending 11. MRI of the left foot 12. GI and DVT prophylaxis Discharge Plan: Home Plan to discharge in: Greater than 2 days - Advance Directives Does patient have a Living Will: No Does patient have a Durable POA for Healthcare: Yes - Code Status/Comfort Care Code Status Assessed: Yes Code Status: Full Code Critical Care: No Time Spent Managing PTS Care (In Minutes): 40
[2019-12-03 05:49] LABS: Absolute Lymphocytes (CBC) 0.5 K/uL (0.7-4.9); Basophils % 0.5 % (0-1.3); Hematocrit 28.2 % (39.6-49.0); MPV 6.9 fL (7.6-11.3); RBC Red Blood Cell Count 3.31 M/uL (4.33-5.43)
[2019-12-03] MEDS ORDERED: LEVOTHYROXINE SOD 0.025 MG TAB PO SCH (06:00)
[2019-12-03 06:11] LABS: Albumin 2.1 g/dL (3.4-5.0); Bilirubin Total 0.4 mg/dL (0.2-1.0); Magnesium 1.6 mg/dL (1.8-2.4); Phosphorus 4.1 mg/dL (2.5-4.9); Protein, Total 7.1 g/dL (6.4-8.2); Thyroid Stimulating Hormone 2.52 uIU/mL (0.360-3.740)
[2019-12-03] MEDS ORDERED: Magnesium Sulfate 2gm IVPB 2 G/50 ML BAG IV ONE ×2 (06:46→07:00)
[2019-12-03] MEDS ORDERED: METOLAZONE 10 MG PO SCH (07:00)
[2019-12-03] MEDS: glipiZIDE 5 MG TAB PO SCH ×2 (07:30→16:50)
--- NOTE | 2019-12-03 08:43 | RAD REPORT ---
EXAM DESCRIPTION: MRI - Foot Left Wo Cont - 12/03/2019 8:15 am CLINICAL HISTORY: Foot pain and swelling COMPARISON: October 2019 TECHNIQUE: Axial, sagittal and coronal magnetic resonance imaging left foot FINDINGS: Extensive Abnormal signal is present throughout most of the first proximal phalanx and fir st distal phalanx. Abnormal signal also involves third middle and distal phalanx. No soft tissue abscess IMPRESSION: Marked osteomyelitis involving the first proximal and distal phalanx Osteomyelitis involving the third middle and distal phalanx
[2019-12-03 08:46] LABS: Platelet Estimate ADEQ; Urine White Blood Cell Casts OK
[2019-12-03 08:48] LABS: Blood Morphology Comment NOT SEEN (NOT SEEN)
[2019-12-03] MEDS: BUMETANIDE 1 MG TABLET PO SCH (09:00)
[2019-12-03] MEDS: ENOXAPARIN 30 MG/0.3 ML SQ SCH (09:00)
[2019-12-03] MEDS: SITAGLIPTIN PHOS 100 MG TAB PO SCH (09:00)
[2019-12-03] MEDS: SPIRONOLACTONE 25 MG TABLET PO SCH (09:00)
[2019-12-03] MEDS: PANTOPRAZOLE 40MG TABLET PO SCH (09:00)
[2019-12-03] MEDS: HYDRALAZINE HCL 10 MG TABLET PO SCH (09:00)
[2019-12-03] MEDS: carvediloL 25 MG TAB PO SCH (09:00)
[2019-12-03] MEDS ORDERED: HOME MED 1 EA UNK (Gabapentin [Gralise] 300 MG) PO SCH ×3 (09:00→15:00)
[2019-12-03] MEDS: hydrOXYzine HCL 25 MG TAB PO SCH ×3 (09:00→20:21)
[2019-12-03] MEDS: PIPER/TAZO/NS 2.25gm 2.25 GM/50 ML BAG IVPB SCH ×2 (09:00→17:08)
[2019-12-03] MEDS: TAMSULOSIN 0.4 MG SR CAP PO SCH (09:00)
[2019-12-03] MEDS ORDERED: carvediloL 6.25 MG TAB ONE (09:25)
[2019-12-03] MEDS ORDERED: PANTOPRAZOLE 40MG TABLET PO ONE (09:25)
[2019-12-03] MEDS ORDERED: GABAPENTIN 300 MG CAP ONE (09:25)
[2019-12-03] MEDS ORDERED: HYDRALAZINE HCL 10 MG TABLET ONE (09:26)
[2019-12-03] MEDS ORDERED: hydrOXYzine HCL 25 MG TAB ONE (09:26)
[2019-12-03] MEDS ORDERED: TAMSULOSIN 0.4 MG SR CAP ONE (09:26)
[2019-12-03] MEDS ORDERED: ENOXAPARIN 30 MG/0.3 ML SQ ONE (09:27)
[2019-12-03] MEDS: NA CHLORIDE 0.9% 1,000 ML IV SCH (10:58)
--- NOTE | 2019-12-03 11:17 | P.PN ---
Subjective Date of Service: 12/03/19 Chief Complaint: Osteomyelitis of the left foot Subjective: No new changes, Tolerating diet Physical Examination - Vital Signs Temperature: 98.9 F Blood Pressure: 114/43 Pulse: 72 Respirations: 18 Pulse Ox (%): 96 - Physical Exam General: Alert, In no apparent distress, Oriented x3, Obese HEENT: Atraumatic, Normocephalic Neck: Supple, 2+ carotid pulse no bruit, JVD not distended Respiratory: Clear to auscultation bilaterally, Normal air movement Cardiovascular: Normal pulses, Regular rate/rhythm, Normal S1 S2 Gastrointestinal: Normal bowel sounds, Soft and benign, Non-distended Musculoskeletal: Swelling, Erythema, Tenderness, Warmth (Left lower extremity, left great toe ulcer) Neurological: Normal speech, Normal strength at 5/5 x4 extr - Studies Laboratory Data (last 24 hrs) 12/02/19 18:15: PT 14.3 H, INR 1.22, APTT 34.2 12/02/19 18:15: WBC 11.2 H, Hgb 10.0 L, Hct 30.8 L, Plt Count 262 12/02/19 18:15: Sodium 128 L, Potassium 4.1, BUN 67 H, Creatinine 2.03 H, Glucose 144 H, Total Bilirubin 0.3, AST 11 L, ALT 15, Alkaline Phosphatase 81 Assessment & Plan Physician Review: Patient Assessed, Agree with Above Assessment and Plan Physician Review Additional Text: #Left great toe osteomyelitis-continue IV antibiotics. -follow surgery evaluation -continue wound cares. -will consult ID -follow blood culture #Acute on chronic CKD-creatinine improving to 1.9 -follow Nephrology next and continue increased p.o. intake # Diabetes mellitus-continue all insulin sliding scale with Accu-Cheks #Hypertension-controlled Time Spent Managing Pts Care (In Minutes): 30
[2019-12-03] MEDS: METOLAZONE 5 MG TABLET PO SCH (13:15)
[2019-12-03] MEDS: ATORVASTATIN 40 MG TAB PO SCH (20:20)
[2019-12-03] MEDS: POTASSIUM CL SA 10 MEQ TAB PO SCH (20:20)
[2019-12-03] MEDS: FUROSEMIDE 40 MG TABLET PO SCH (20:20)
[2019-12-03] MEDS ORDERED: Levofloxacin 250mg IV 250 MG/50 ML BAG IV SCH (21:00)
--- NOTE | 2019-12-04 00:14 | CON ---
Date of Consultation: 12/03/2019 Reason For Consultation: Elevated BUN and creatinine, fluid management. 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 The patient had recurrent admission to the hospital with over volume, adjusted the treatment. Patient recently admitted with osteomyelitis, treated. Patient apparently was in his regular state of health 2 weeks ago visit with for ulcer on his big toe, apparently some debridement has been done to the area, gradually started having more swelling and whitish and yellowish drainage from the wound. For that reason, reported to the ER, found to have possible osteomyelitis. Primary workup showed elevation in BUN and creatinine, and edema. For that reason, we have been consulted. Past Medical History: In reviewing the record for the patient, patient's baseline creatinine around 1.7 to 1.8 of creatinine. Past Medical History: Include, 1. Hypertension. 2. Pulmonary hypertension. 3. Diabetes complicated with neuropathy and nephropathy. 4. Coronary artery disease complicated with congestive heart failure. 5. 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 Allergies: NO KNOWN DRUG ALLERGIES. Family History: Positive for hypertension. Social History: Lives with family. Denies smoking. Denies drinking. Denies drugs abuse. Review of Systems: Head and Neck: No red eye. No ear pain. GI: No nausea, no vomiting. : No dysuria. No hematuria. Used to have [place]. 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 Respiratory: Chronic shortness of breath. Cardiovascular: No chest pain, has leg swelling. Endocrine: No polydipsia. Skin: No rash. Neuro: Has neuropathy. Musculoskeletal: Has foot pain. Physical Examination: General: When I saw the patient, patient was lying in bed, not on any oxygen. Vital Signs: Blood pressure of 150/66, pulse of 75, afebrile. Chest: Faint crackles on the base. Heart: S1, S2. Systolic murmur. Abdomen: Soft, nontender. Extremities: Trace edema on the left, +2 edema on the right with erythema and swelling with whitish discharge from the left big toe. Neurological: Alert and oriented. No focal. Laboratory Data: WBC 9.6, H and H 9.4/28.2, platelet 239. Sodium 131, potassium 4.1, bicarb 27, BUN 60, creatinine 1.9, calcium 8.4, phosphorus 4.1, magnesium 1.6. TSH 2.5. Culture still pending. MRI for the foot: 1. Osteomyelitis proximal and distal toe. 2. Osteomyelitis involving third, middle, and distal thumb. 3. Doppler of lower extremity was negative for DVT. Current Medications: The patient is on include, 1. Bumex. 2. Vancomycin. 3. Levaquin. 4. Zosyn. 5. Flomax. 6. Lovenox. 7. Metoprolol. 8. Glipizide. 9. Levothyroxine. Assessment And Plan: 1. Chronic kidney disease secondary to cardiorenal, diabetes nephropathy, normal volume currently. I am going to continue home diuresis, Lasix 80 mg, metolazone 10 mg every other day, and spironolactone 25 daily. 2. Hypertension, controlled, optimal. Continue current medication. 3. Diabetes as by primary. 4. Obstructive uropathy. Continue Flomax. 5. Congestive heart failure, currently normal volume as above. Continue current diuresis dose. 6. Osteomyelitis. We will continue current antibiotic. We will follow up with ID. Thank you Dr. Barriga for allowing us to participate in the care of your patient. SISSY/SUSHANT Voice ID: [id number] Report ID: [id number] ANN
[2019-12-04] MEDS: PIPER/TAZO/NS 2.25gm 2.25 GM/50 ML BAG IVPB SCH ×2 (01:00→09:24)
[2019-12-04] MEDS: LEVOTHYROXINE SOD 0.05 MG TABLET PO SCH (05:53)
[2019-12-04 06:15] LABS: Albumin 2.3 g/dL (3.4-5.0); Bilirubin Total 0.4 mg/dL (0.2-1.0); Magnesium 1.7 mg/dL (1.8-2.4); Phosphorus 3.9 mg/dL (2.5-4.9); Potassium 3.7 mmol/L (3.5-5.1); Protein, Total 7.4 g/dL (6.4-8.2)
[2019-12-04] MEDS ORDERED: MAGNESIUM SULFATE 1 gm IVPB 1 GM/100 ML BAG IV ONE (08:03)
[2019-12-04] MEDS: SITAGLIPTIN PHOS 100 MG TAB PO SCH (09:00)
[2019-12-04] MEDS ORDERED: VANCOMYCIN 1.75 GM in NA CHLORIDE 0.9% 500 ML IV SCH (09:00)
[2019-12-04] MEDS: ENOXAPARIN 30 MG/0.3 ML SQ SCH (09:25)
[2019-12-04] MEDS: FUROSEMIDE 40 MG TABLET PO SCH ×2 (09:25→20:23)
[2019-12-04] MEDS: SPIRONOLACTONE 25 MG TABLET PO SCH (09:25)
[2019-12-04] MEDS: POTASSIUM CL SA 10 MEQ TAB PO SCH ×2 (09:26→20:23)
[2019-12-04] MEDS: TAMSULOSIN 0.4 MG SR CAP PO SCH (09:26)
[2019-12-04] MEDS: METOPROLOL XL 25 MG TAB PO SCH (09:26)
[2019-12-04] MEDS: hydrOXYzine HCL 25 MG TAB PO SCH ×3 (09:27→20:22)
[2019-12-04] MEDS: PANTOPRAZOLE 40MG TABLET PO SCH (09:27)
[2019-12-04] MEDS: glipiZIDE 5 MG TAB PO SCH ×2 (09:29→15:48)
--- NOTE | 2019-12-04 09:58 | P.PN ---
Subjective Date of Service: 12/04/19 Chief Complaint: Osteomyelitis of the left foot Subjective: No new changes Intermittent pain overnight. Otherwise no new complaints. Physical Examination - Vital Signs Temperature: 98.2 F Blood Pressure: 132/63 Pulse: 110 Respirations: 15 Pulse Ox (%): 92 - Physical Exam General: Alert, In no apparent distress HEENT: Atraumatic, PERRLA, EOMI Neck: Supple, JVD not distended Respiratory: Clear to auscultation bilaterally, Normal air movement Cardiovascular: Regular rate/rhythm, Normal S1 S2 Gastrointestinal: Normal bowel sounds, No tenderness Musculoskeletal: No tenderness Integumentary: Skin breakdown (LLE erythema and ulcer. ) Neurological: Normal speech, Normal tone, Normal affect Lymphatics: No axilla or inguinal lymphadenopathy - Studies Laboratory Tests 12/03/19 12/04/19 12/04/19 05:30 05:15 09:23 WBC 9.6 D RBC 3.31 L Hgb 9.4 L Hct 28.2 L Plt Count 239 Sodium 136 Potassium 3.7 BUN 63 H Creatinine 2.02 H POC Glucose 169 H Magnesium 1.7 L Microbiology Data (last 24 hrs): 12/02/19 19:15 Wound - Left Foot Gram Stain - Final 12/02/19 18:00 Blood - Blood Gram Stain - Final Microbiology 12/02/19 19:15 Wound - Left Foot Gram Stain - Final 12/02/19 18:00 Blood - Blood Gram Stain - Final 12/02/19 19:15 Wound - Left Foot Culture & Sensitivity - Preliminary Staph Aureus 12/02/19 18:15 Blood - Blood Aerobic Blood Culture - Preliminary 12/02/19 18:15 Blood - Blood Anaerobic Blood Culture - Preliminary No growth in 24 hours. 12/02/19 18:00 Blood - Blood Aerobic Blood Culture - Preliminary 12/02/19 18:00 Blood - Blood Anaerobic Blood Culture - Preliminary Assessment & Plan Physician Review: Patient Assessed, Agree with Above Assessment and Plan Physician Review Additional Text: #Left great toe osteomyelitis-wound culture positive for Staph aureus, MSSA & GNR, will follow final culture. Next and-continue current IV antibiotics. -surgeon and wound Care following. -infectious Disease consulted. -monitor vital signs. # GPC bacteremia-suspect MSSA from osteomyelitis. -repeat blood culture ordered. -follow final blood culture. #Acute on chronic CKD-creatinine stable at 2.02 -avoid nephrotoxins -contracts manager on consult. -continue all current medication including spironolactone and furosemide per contracts manager recommendation #Diabetes mellitus-continue all insulin sliding scale with Accu-Cheks #Hypertension-controlled DVT prophylaxis-Lovenox Patient is full code. Disposition- pending clinical improvement.
--- NOTE | 2019-12-04 11:26 | P.PN ---
Subjective Date of Service: 12/05/19 Chief Complaint: Osteomyelitis of the left foot Subjective An 84-year-old gentleman,past medical history of hypertension, diabetes complicated with neuropathy, nephropathy, hyperlipidemia, coronary artery disease and CHF presented for foot swelling, erythema and drainage today no new complaints sodium normalized , Cr stable pending Abx choice and duration as per ID monitor vanco level Past Medical History: In reviewing the record for the patient, patient's baseline creatinine around 1.7 to 1.8 of creatinine. Past Medical History: Include, 1. Hypertension. 2. Pulmonary hypertension. 3. Diabetes complicated with neuropathy and nephropathy. 4. Coronary artery disease complicated with congestive heart failure. 5. 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 Allergies: NO KNOWN DRUG ALLERGIES. Family History: Positive for hypertension. Social History: Lives with family. Denies smoking. Denies drinking. Denies drugs abuse. Physical exam general: AAOX3, NAD , obese Neck; Supple, No elevated JVD hear: RRR, normal S1,2 no murmur or rub Chest: diminished air entry B/l Abdomen: Soft , Nt Extremities foot dressing, Leg erythema and swelling A/P CKD III\ due to cardiorenal and Obstructive uropathy Cr stable renal dose meds monitor vanco Foot OM cont abx as per ID monitor vancpo level DM as per PCP HTN BP controlled CHF cont lasix metolazone and aldactone Physical Examination - Vital Signs Temperature: 98.2 F Blood Pressure: 132/63 Pulse: 110 Respirations: 15 Pulse Ox (%): 92 - Studies Microbiology Data (last 24 hrs): 12/02/19 19:15 Wound - Left Foot Gram Stain - Final 12/02/19 18:00 Blood - Blood Gram Stain - Final Assessment And Plan Physician Review: Patient Assessed, Agree with Above Assessment and Plan
[2019-12-04] MEDS ORDERED: D50W 25 GM/50 ML SYRINGE/VIAL IV PRN (12:34)
[2019-12-04] MEDS ORDERED: GLUCAGON 1 MG/VIAL IM PRN (12:34)
[2019-12-04] MEDS: INSULIN LISPRO 100 UNIT/1 ML SQ SCH ×3 (12:59→20:23)
--- NOTE | 2019-12-04 14:43 | CON ---
History Of Present Illness: This is an 84-year-old male known to me from previous admissions and hos pitalization. Patient is being followed by wound care team in the clinic in [facility] by s neftaly team. Patient had a debridement done not too long ago. The daughter noted about a week ago that he is developing some redness and he was brought into the hospital on December 02, 2019 with cellul itis and worsening of the wound. Patient feels slightly better today. Denies any headache, nausea, vomiting, chest pain, abdominal pain, constipation, or diarrhea. Past Medical History: Diabetes mellitus, diabetic foot ulcers, osteomyelitis, hypercholesterolemia, COPD, asbestosis, MRSA, foot infection, obstructive sleep apnea, atrial flutter, congestive heart emily lure, lower extremity edema with stasis dermatitis, cataract surgery, right hip surgery status post f racture. Social History: Tobacco positive. Former smoker. Alcohol negative. Family History: Noncontributory. Medications: Currently, patient is on Zosyn and vancomycin. See MAR for other medications. Allergies: NO KNOWN DRUG ALLERGIES. Review of Systems: A 10-point review was performed. Physical Examination: General: This is an 84-year-old male, lying in bed, not in any acute cardiopulmonary distress. Vital Signs: Temperature 98, pulse 110, respirations 15, blood pressure 132/63. HEENT: Unremarkable. Neck: Supple. Lungs: Basal crackles. Heart: S1, S2. Regular. Abdomen: Soft, nontender. Bowel sounds present. Extremities: Left foot big toe with small ulceration and swelling of the big toe and erythematous ch anges and swelling and edema of the leg. Ulceration size was 1 x 0.7 with slough and hardening of th e skin in the surrounding tissue. Imaging Data: MRI of the foot done yesterday shows patient has some marked osteomyelitis involving t he first proximal and distal phalanx, osteomyelitis involving the third, middle, and distal phalanx a lso. Doppler study done on 05/03 shows no evidence of DVT. Laboratory Data: Shows WBC 9.6 down from 11.2, hemoglobin 9.4, platelets are 239. Chemistry shows s odium 136, potassium 3.7, chloride 97, bicarb 32, BUN 63, creatinine 2, glucose is 85, albumin is 2.3 . BNP is 4044. TSH is 2.5. Procalcitonin is 0.16. Micro data shows wound cultures growing Staphyl ococcus aureus sensitive to cefazolin, vancomycin, and oxacillin. Assessment And Plan: Diabetic foot ulcer in an 84-year-old male with longstanding history of diabete s mellitus and previous osteomyelitis. MRI showing osteomyelitis of 1st proximal and distal phalanx and osteomyelitis involving the 3rd, middle, and distal phalanx. Also, cellulitis of left lower extr emity and leukocytosis which has improved on vancomycin and Zosyn. We will recommend antibiotic to b e changed to nafcillin to adjust the dosage with kidney function on discharge total of 6 weeks. We w ill follow the patient closely. Patient to be followed by primary care doctor and wound care team. We will follow the patient as needed. Thank you Dr. Barriga and Dr. Oleary for consult. NF/MODL Voice ID: [id number] Report ID: [id number]
[2019-12-04] MEDS: OXACILLIN SODIUM 2 GM in NA CHLORIDE 0.9% 100 ML IV SCH (17:25)
[2019-12-04] MEDS ORDERED: OXACILLIN SODIUM 2 GM in NA CHLORIDE 0.9% 100 ML IV SCH (18:00)
[2019-12-04] MEDS: ATORVASTATIN 40 MG TAB PO SCH (20:26)
[2019-12-05] MEDS: OXACILLIN SODIUM 2 GM in NA CHLORIDE 0.9% 100 ML IV SCH ×5 (01:05→23:57)
[2019-12-05] MEDS: LEVOTHYROXINE SOD 0.05 MG TABLET PO SCH (06:08)
[2019-12-05 06:48] LABS: Albumin 2.3 g/dL (3.4-5.0); Magnesium 1.7 mg/dL (1.8-2.4); Phosphorus 3.8 mg/dL (2.5-4.9); Potassium 3.5 mmol/L (3.5-5.1)
[2019-12-05] MEDS ORDERED: MAGNESIUM SULFATE 1 gm IVPB 1 GM/100 ML BAG IV ONE (06:54)
[2019-12-05] MEDS: INSULIN LISPRO 100 UNIT/1 ML SQ SCH ×4 (07:30→22:02)
[2019-12-05] MEDS: FUROSEMIDE 40 MG TABLET PO SCH ×2 (08:55→21:53)
[2019-12-05] MEDS: hydrOXYzine HCL 25 MG TAB PO SCH ×3 (08:55→21:53)
[2019-12-05] MEDS: METOPROLOL XL 25 MG TAB PO SCH (08:55)
[2019-12-05] MEDS: POTASSIUM CL SA 10 MEQ TAB PO SCH ×2 (08:55→21:52)
[2019-12-05] MEDS: SITAGLIPTIN PHOS 100 MG TAB PO SCH (08:55)
[2019-12-05] MEDS: ENOXAPARIN 30 MG/0.3 ML SQ SCH (08:55)
[2019-12-05] MEDS: PANTOPRAZOLE 40MG TABLET PO SCH (08:56)
[2019-12-05] MEDS: SPIRONOLACTONE 25 MG TABLET PO SCH (08:56)
[2019-12-05] MEDS: glipiZIDE 5 MG TAB PO SCH ×2 (08:56→17:34)
[2019-12-05] MEDS: TAMSULOSIN 0.4 MG SR CAP PO SCH ×2 (08:56→21:52)
[2019-12-05] MEDS: METOLAZONE 5 MG TABLET PO SCH (12:08)
--- NOTE | 2019-12-05 15:36 | P.PN ---
Subjective Date of Service: 12/05/19 Chief Complaint: Osteomyelitis of the left foot Subjective An 84-year-old gentleman,past medical history of hypertension, diabetes complicated with neuropathy, nephropathy, hyperlipidemia, coronary artery disease and CHF presented for foot swelling, erythema and drainage today no new complaints Cr stable corrected sodium 133, fluid restriction Cont Abx as per ID Past Medical History: In reviewing the record for the patient, patient's baseline creatinine around 1.7 to 1.8 of creatinine. Past Medical History: Include, 1. Hypertension. 2. Pulmonary hypertension. 3. Diabetes complicated with neuropathy and nephropathy. 4. Coronary artery disease complicated with congestive heart failure. 5. 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 Allergies: NO KNOWN DRUG ALLERGIES. Family History: Positive for hypertension. Social History: Lives with family. Denies smoking. Denies drinking. Denies drugs abuse. Physical exam general: AAOX3, NAD , obese Neck; Supple, No elevated JVD hear: RRR, normal S1,2 no murmur or rub Chest: diminished air entry B/l Abdomen: Soft , Nt Extremities foot dressing, Leg erythema and swelling A/P CKD III\ due to cardiorenal and Obstructive uropathy Cr stable renal dose meds monitor vanco Foot OM cont abx as per ID monitor vancpo level DM as per PCP HTN BP controlled CHF cont lasix metolazone and aldactone Physical Examination - Vital Signs Temperature: 98.2 F Blood Pressure: 132/63 Pulse: 110 Respirations: 15 Pulse Ox (%): 92 - Studies Microbiology Data (last 24 hrs): 12/02/19 19:15 Wound - Left Foot Gram Stain - Final 12/02/19 19:15 Wound - Left Foot Culture & Sensitivity - Final Staph Aureus Escherichia Coli 12/02/19 18:00 Blood - Blood Aerobic Blood Culture - Final Staph Aureus 12/02/19 18:00 Blood - Blood Blood Culture Gram Stain - Final 12/02/19 18:00 Blood - Blood Anaerobic Blood Culture - Final Staph Aureus 12/02/19 18:00 Blood - Blood Gram Stain - Final 12/02/19 18:15 Blood - Blood Aerobic Blood Culture - Final Staph Aureus 12/02/19 18:15 Blood - Blood Blood Culture Gram Stain - Final Assessment And Plan Physician Review: Patient Assessed, Agree with Above Assessment and Plan
--- NOTE | 2019-12-05 17:05 | PN ---
Subjective: Currently patient lying in bed. He looks comfortable. He has no chest pain. No abdomi nal pain. No fever. No chills overnight. He had a good lunch. Review of Systems: Otherwise negative. Objective: Vital Signs: Blood pressure 128/51, respiratory rate 18, pulse 93, temperature 97.9, sat urating 92 on room air. General: He is alert and oriented x3. Does not look in any distress. HEENT: Atraumatic, normocephalic. PERRLA. Oral mucosa is moist. Neck: Supple. No JVD. No bruits. Chest: Clear to auscultation. Good air entry. Heart: Regular rate and rhythm. No gallop or murmur. Abdomen: Soft, nontender with no hepatosplenomegaly. Positive bowel sounds. Extremities: No clubbing or cyanosis or edema. Left lower extremity with erythema and skin breakdow n. Dressing clean. Laboratory Data: Showed CBC normal except for hemoglobin 9.4, platelets of 239. Chemistry was mary l except for sodium 132, chloride 95, BUN of 63, creatinine of 2, GFR of 32, glucose 157, bilirubin o f 1.2. Assessment And Plan: 1.This is an 84-year-old gentleman with history of left great toe osteomyelitis. Wound culture was positive for Staph aureus, methicillin-sensitive Staphylococcus aureus, and gram-negative rods. Bloo d culture was also positive for methicillin-sensitive Staphylococcus aureus. Appreciate Infectious D isease recommendation. Dr. Tao has seen the patient and advised intravenous antibiotic with intra venous saline for a total of 6 weeks. The patient will need placement at [facility] to fin joyce his antibiotic course as he lives alone. 2.CBC bacteremia with also methicillin-sensitive Staphylococcus aureus, probably secondary to patien t's grade 2 wound. 3.Acute on chronic renal insufficiency. Creatinine today at 2. Appreciate Nephrology input. Most likely secondary to cardiorenal and obstructive uropathy. Creatinine is stable. Observe. Vancomyci n was stopped. 4.Diabetes mellitus, not well controlled. It was in the range of 158 to 368 yesterday. Continue pa tient on glipizide 5 mg twice a day as well as insulin sliding scale. I will increase the glipizide to 10 mg today twice a day and order hemoglobin A1c. 5.Enlarged prostate, on Flomax. Continue daily. 6.Gastrointestinal prophylaxis with proton-pump inhibitor 40 mg daily. 7.Hypothyroidism, on Synthroid. 8.Deep vein thrombosis prophylaxis with Lovenox 30 given renal insufficiency. 9.Hyperlipidemia, on atorvastatin. FINESSE/SUSHANT Voice ID: [id number] Report ID: [id number]
[2019-12-05] MEDS: ATORVASTATIN 40 MG TAB PO SCH (21:53)
[2019-12-06 05:22] LABS: Absolute Lymphocytes (CBC) 1.2 K/uL (0.7-4.9); Basophils % 0.7 % (0-1.3); Hematocrit 30.3 % (39.6-49.0); Lymphocytes % 13.9 % (15.3-44.8); MPV 6.8 fL (7.6-11.3); RBC Red Blood Cell Count 3.58 M/uL (4.33-5.43)
[2019-12-06 05:42] LABS: Albumin 2.2 g/dL (3.4-5.0); Magnesium 1.8 mg/dL (1.8-2.4); Potassium 3.2 mmol/L (3.5-5.1)
[2019-12-06] MEDS: OXACILLIN SODIUM 2 GM in NA CHLORIDE 0.9% 100 ML IV SCH ×4 (05:44→23:25)
[2019-12-06] MEDS: LEVOTHYROXINE SOD 0.05 MG TABLET PO SCH (05:44)
[2019-12-06] MEDS: INSULIN LISPRO 100 UNIT/1 ML SQ SCH ×4 (07:30→20:10)
[2019-12-06] MEDS: hydrOXYzine HCL 25 MG TAB PO SCH ×3 (08:45→20:09)
[2019-12-06] MEDS: PANTOPRAZOLE 40MG TABLET PO SCH (08:45)
[2019-12-06] MEDS: SPIRONOLACTONE 25 MG TABLET PO SCH (08:45)
[2019-12-06] MEDS: METOPROLOL XL 25 MG TAB PO SCH (08:45)
[2019-12-06] MEDS: FUROSEMIDE 40 MG TABLET PO SCH ×2 (08:45→20:09)
[2019-12-06] MEDS: ENOXAPARIN 30 MG/0.3 ML SQ SCH (08:45)
[2019-12-06] MEDS: POTASSIUM CL SA 10 MEQ TAB PO SCH ×2 (08:45→20:09)
[2019-12-06] MEDS: glipiZIDE 5 MG TAB PO SCH ×2 (08:45→16:38)
[2019-12-06] MEDS: TAMSULOSIN 0.4 MG SR CAP PO SCH ×2 (08:45→20:09)
[2019-12-06] MEDS ORDERED: VANCOMYCIN 1.75 GM in NA CHLORIDE 0.9% 500 ML IV SCH (09:00)
[2019-12-06] MEDS ORDERED: MAGNESIUM SULFATE 1 gm IVPB 1 GM/100 ML BAG IV ONE (09:00)
--- NOTE | 2019-12-06 11:45 | P.PN ---
Subjective Date of Service: 12/06/19 Chief Complaint: Osteomyelitis of the left foot Subjective: Improving Subjective An 84-year-old gentleman,past medical history of hypertension, diabetes complicated with neuropathy, nephropathy, hyperlipidemia, coronary artery disease and CHF presented for foot swelling, erythema and drainage today no new complaints Cr stable sodium normalized Low K , replaced Cont Abx as per ID , pending insurance Abx approval Past Medical History: In reviewing the record for the patient, patient's baseline creatinine around 1.7 to 1.8 of creatinine. Past Medical History: Include, 1. Hypertension. 2. Pulmonary hypertension. 3. Diabetes complicated with neuropathy and nephropathy. 4. Coronary artery disease complicated with congestive heart failure. 5. 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 Allergies: NO KNOWN DRUG ALLERGIES. Family History: Positive for hypertension. Social History: Lives with family. Denies smoking. Denies drinking. Denies drugs abuse. Physical exam general: AAOX3, NAD , obese Neck; Supple, No elevated JVD hear: RRR, normal S1,2 no murmur or rub Chest: diminished air entry B/l Abdomen: Soft , Nt Extremities foot dressing, Leg erythema and swelling A/P CKD III\ due to cardiorenal and Obstructive uropathy Cr stable renal dose meds monitor vanco Foot OM cont abx as per ID monitor vanco level DM as per PCP HTN BP controlled CHF cont lasix metolazone and aldactone Physical Examination - Vital Signs Temperature: 97.5 F Blood Pressure: 111/56 Pulse: 73 Respirations: 16 Pulse Ox (%): 92 - Studies Microbiology Data (last 24 hrs): 12/02/19 18:15 Blood - Blood Aerobic Blood Culture - Final Staph Aureus 12/02/19 18:15 Blood - Blood Blood Culture Gram Stain - Final 12/02/19 18:15 Blood - Blood Anaerobic Blood Culture - Final Staph Aureus 12/02/19 18:15 Blood - Blood Gram Stain - Final 12/02/19 19:15 Wound - Left Foot Gram Stain - Final 12/02/19 19:15 Wound - Left Foot Culture & Sensitivity - Final Staph Aureus Escherichia Coli 12/02/19 18:00 Blood - Blood Aerobic Blood Culture - Final Staph Aureus 12/02/19 18:00 Blood - Blood Blood Culture Gram Stain - Final 12/02/19 18:00 Blood - Blood Anaerobic Blood Culture - Final Staph Aureus 12/02/19 18:00 Blood - Blood Gram Stain - Final
[2019-12-06] MEDS ORDERED: POTASSIUM CL SA 10 MEQ TAB PO ONE (17:00)
--- NOTE | 2019-12-06 17:15 | PN ---
Error please disregard MTDD
--- NOTE | 2019-12-06 17:15 | PN ---
Subjective: Patient is currently walking in the room. He is going to the bathroom. He has no chest pain. No abdominal pain. No fever, no chills. He was eating his lunch. He is having some pain in his ankle. Review of Systems: Otherwise negative. Objective: Vital Signs: Blood pressure is 111/56, respiratory rate 16, pulse 73, temperature 97.5. Patient is saturating 92 on room air. General: Patient is alert and oriented x3. Does not look in any distress. HEENT: Atraumatic, normocephalic. PERRLA. Oral mucosa is moist. Neck: Supple. No JVD. No bruits. Chest: Clear to auscultation. Good air entry. Heart: Regular rate and rhythm. S1, S2 normal. No gallop or murmur. Abdomen: Soft, nontender with no hepatosplenomegaly. Positive bowel sounds. Extremities: No clubbing, cyanosis, or edema. Left lower extremity with mild erythema and skin dayan kdown. He has a dressing which looks clean. Laboratory Data: Today showed CBC is normal except for hemoglobin of 10.4. Chemistry within normal except for sodium 134, potassium 3.2, chloride 96, BUN of 67, creatinine 1.76, glucose of 142 to 207. Assessment And Plan: An 84-year-old gentleman with: 1.History of left great toe osteomyelitis. Wound culture was positive for Staph aureus, methicillin sensitive and gram-negative rods. Blood culture was positive again for methicillin sensitive Staphy lococcus aureus. Appreciate Dr. Tao's recommendation. Continue patient on IV antibiotic with oxa cillin for total of 6 week. Initial plan was to send the patient to [facility] or [facility], but today I jus t talked to the daughter and she preferred the patient to go home with home health and she will help with the IV antibiotic. I discussed with the charge nurse to change the consult for home health and that will be arranged tomorrow through social work. 2.Bacteremia with methicillin sensitive Staphylococcus aureus, probably secondary to the patient's w ound. 3.Acute on chronic renal insufficiency. Creatinine today at 1.76, continue to improve, BUN still el evated. Encourage patient to drink more. Vancomycin was stopped. 4.Diabetes mellitus. Glucose today in the range of 109 to 207. Hemoglobin A1c is 7.6. I increased his glipizide yesterday to 10 mg twice a day and that his sugar looks much better control today comp ared to yesterday. We will continue same. 5.Benign prostatic hyperplasia. Continue Flomax. 6.Hypothyroidism, on Synthroid. 7.Deep vein thrombosis prophylaxis. Lovenox 30 mg given renal insufficiency. 8.Hyperlipidemia, on statin. 9.Gastrointestinal prophylaxis, on PPI with 40 of Protonix. 10.Discharge plan will depend on arrangement made by Social Work for IV antibiotic at home tomorrow. FINESSE/SUSHANT Voice ID: [id number] Report ID: [id number]
[2019-12-06] MEDS: ATORVASTATIN 40 MG TAB PO SCH (20:09)
[2019-12-07 04:52] LABS: Albumin 2.2 g/dL (3.4-5.0); Magnesium 1.8 mg/dL (1.8-2.4); Phosphorus 3.6 mg/dL (2.5-4.9); Potassium 3.5 mmol/L (3.5-5.1)
[2019-12-07] MEDS: LEVOTHYROXINE SOD 0.05 MG TABLET PO SCH (05:30)
[2019-12-07] MEDS ORDERED: NAFCILLIN SODIUM 2 GM in NA CHLORIDE 0.9% 100 ML IVPB ONE (06:00)
[2019-12-07] MEDS: INSULIN LISPRO 100 UNIT/1 ML SQ SCH ×4 (06:57→22:06)
[2019-12-07] MEDS: POTASSIUM CL SA 10 MEQ TAB PO SCH ×2 (08:30→21:04)
[2019-12-07] MEDS: hydrOXYzine HCL 25 MG TAB PO SCH ×3 (08:30→21:05)
[2019-12-07] MEDS: PANTOPRAZOLE 40MG TABLET PO SCH (08:30)
[2019-12-07] MEDS: TAMSULOSIN 0.4 MG SR CAP PO SCH ×2 (08:30→21:04)
[2019-12-07] MEDS: glipiZIDE 5 MG TAB PO SCH ×2 (08:30→17:24)
[2019-12-07] MEDS: FUROSEMIDE 40 MG TABLET PO SCH ×2 (08:31→21:05)
[2019-12-07] MEDS: METOPROLOL XL 25 MG TAB PO SCH (08:31)
[2019-12-07] MEDS: ENOXAPARIN 30 MG/0.3 ML SQ SCH (08:32)
[2019-12-07] MEDS: SPIRONOLACTONE 25 MG TABLET PO SCH (08:32)
--- NOTE | 2019-12-07 11:00 | RAD REPORT ---
EXAM DESCRIPTION: RAD - Chest Single View - 12/05/2019 1:10 am CLINICAL HISTORY: The patient is 84 years old and is Male; picc line insertion TECHNIQUE: Frontal view of the chest. COMPARISON: No relevant prior studies available. FINDINGS: LUNGS: Unremarkable. No consolidation. PLEURAL SPACE: Unremarkable. No pneumothorax. HEART: The cardiac silhouette is enlarged. MEDIASTINUM: Suggestion of a second line overlying the right mediastinum is present which may be extraneous to the patient. Comparison prior imaging is recommended. BONES/JOINTS: There are degenerative changes of the bones. VASCULATURE: Prominence of central vasculature is present. Atherosclerosis of the aorta is not ed. TUBES, LINES AND DEVICES: A right upper extremity PICC is present with the tip in the SVC. IMPRESSION: 1. A right upper extremity PICC is present with the tip in the SVC. 2. Suggestion of a second line overlying the right mediastinum is present which may be extraneous t o the patient. Comparison prior imaging is recommended. Electronically signed by: Margareth Chris MD 12/05/2019 1:24 AM CDT Due to temporary technical issues with the PACS/Fluency reporting system, reports are being signed by the in house radiologist as a courtesy to ensure prompt reporting. The interpreting radiologist is f ully responsible for the content of the report.
[2019-12-07] MEDS ORDERED: CEFAZOLIN/SWI 2gm 2 GM/20 ML SYR IV ONE (11:30)
[2019-12-07] MEDS ORDERED: OXACILLIN SODIUM 2 GM in NA CHLORIDE 0.9% 100 ML IV SCH (12:00)
[2019-12-07] MEDS: METOLAZONE 5 MG TABLET PO SCH (12:09)
--- NOTE | 2019-12-07 14:09 | P.DS ---
Admission Date: 12/02/19 Discharge Date: 12/07/19 Primary Care Provider: Dr. Mckenzie Disposition: DC HOME/HOME HEALTH CARE Discharge Condition: GOOD Reason for Admission: Osteomyelitis of the left foot Consultations: Nephrology-Dr. iKncaid Infectious Disease-Dr. Pina Procedures: MRI: FINDINGS: Extensive Abnormal signal is present throughout most of the first proximal phalanx and first distal phalanx. Abnormal signal also involves third middle and distal phalanx. No soft tissue abscess IMPRESSION: Marked osteomyelitis involving the first proximal and distal phalanx Osteomyelitis involving the third middle and distal phalanx Medical Problem List: Left great toe osteomyelitis/3rd digit with bacteremia, wound culture positive for Staph aureus and E coli, blood culture positive for Staph aureus Acute on chronic renal disease stage III Diabetes mellitus type 2 BPH Hypothyroidism Hyperlipidemia Hypertension Brief History of Present Illness: 84-year-old male with multiple medical problems presented to the emergency room after worsening ulcer to the left great toe. Patient with history of osteomyelitis. Patient was admitted for further evaluation and treatment. Hospital Course: Patient presented with left great toe osteomyelitis. Patient seen by wound care. Patient was re-evaluated. MRI showed osteomyelitis of the left great toe and 3rd digit. Patient was also found to to have bacteremia. Patient placed on IV antibiotic therapy. Wound culture positive for Staph aureus and E coli. Blood cultures positive for Staph aureus. Patient seen by nephrology and infectious disease. Infectious disease recommended long-term IV antibiotic therapy. PICC line was placed. Sensitivities of cultures wore reviewed in detail. Patient declined going to a long-term acute care facility to continue wound care and IV antibiotic therapy. At discharge patient will go home on IV Ancef 1 g IV twice daily for 6 weeks. Patient will continue with current wound care. Patient will follow up at the wound Care Center within 1 week to continue his care. After 6 weeks of therapy patient can be reassess. After that time PICC line can be removed. Patient with history of diabetes mellitus type 2, chronic renal disease stage III, BPH, hypothyroidism and hyperlipidemia. At discharge patient will continue with current medications. Further adjustment in medication can be done by PCP. Vital Signs/Physical Exam: Temp Pulse Resp BP Pulse Ox 97 F 71 18 133/60 98 12/07/19 08:00 12/07/19 12:09 12/07/19 08:00 12/07/19 12:09 12/07/19 08:00 General: Alert, Oriented x3, Cooperative HEENT: Atraumatic Neck: Supple Respiratory: Clear to auscultation bilaterally, Normal air movement Cardiovascular: Normal pulses, Regular rate/rhythm Gastrointestinal: Normal bowel sounds, Soft and benign, Non-distended Integumentary: Other (Bandage to the lower extremity noted.) Laboratory Data at Discharge: WBC 8.9 K/uL (4.3-10.9) 12/06/19 05:00 Hgb 10.4 g/dL (13.6-17.9) L 12/06/19 05:00 Hct 30.3 % (39.6-49.0) L 12/06/19 05:00 Plt Count 275 K/uL (152-406) 12/06/19 05:00 PT 14.3 SECONDS (9.5-12.5) H 12/02/19 18:15 INR 1.22 12/02/19 18:15 APTT 34.2 SECONDS (24.3-36.9) 12/02/19 18:15 Sodium 135 mmol/L (136-145) L 12/07/19 04:27 Potassium 3.5 mmol/L (3.5-5.1) 12/07/19 04:27 BUN 67 mg/dL (7-18) H 12/07/19 04:27 Creatinine 1.62 mg/dL (0.55-1.3) H 12/07/19 04:27 Glucose 127 mg/dL (74-106) H 12/07/19 04:27 Phosphorus 3.6 mg/dL (2.5-4.9) 12/07/19 04:27 Magnesium 1.8 mg/dL (1.8-2.4) 12/07/19 04:27 Total Bilirubin 0.4 mg/dL (0.2-1.0) 12/04/19 05:15 AST 11 U/L (15-37) L 12/04/19 05:15 ALT 13 U/L (12-78) 12/04/19 05:15 Alkaline Phosphatase 69 U/L (45-117) 12/04/19 05:15 Home Medications: Atorvastatin Calcium 40 mg PO DAILY 12/03/19 Furosemide 80 mg PO BID 12/03/19 Hydroxyzine HCl [Atarax] 25 mg PO TID 12/03/19 Levothyroxine Sodium [Synthroid] 50 mcg PO DAILY 12/03/19 Metolazone [Zaroxolyn] 10 mg PO DIRECTED 12/03/19 Metoprolol Tartrate 25 mg PO DAILY 12/03/19 Pantoprazole [Protonix Tab*] 40 mg PO DAILY 12/03/19 Potassium Chloride [Klor-Con 10] 20 meq PO BID 12/03/19 Spironolactone 25 mg PO DAILY 12/03/19 Tamsulosin [Flomax*] 1 tab PO BID 12/03/19 glipiZIDE [Glipizide] 5 mg PO BID 12/03/19 Patient Discharge Instructions: 1. Patient will follow up with PCP in 1 week to follow up this hospitalization. 2. Patient presented with left great toe osteomyelitis. Patient seen by wound care. Patient was re-evaluated. MRI showed osteomyelitis of the left great toe and 3rd digit. Patient was also found to to have bacteremia. Patient placed on IV antibiotic therapy. Wound culture positive for Staph aureus and E coli. Blood cultures positive for Staph aureus. Patient seen by nephrology and infectious disease. Infectious disease recommended long-term IV antibiotic therapy. PICC line was placed. Sensitivities of cultures wore reviewed in detail. Patient declined going to a long-term acute care facility to continue wound care and IV antibiotic therapy. At discharge patient will go home on IV Ancef 1 g IV twice daily for 6 weeks. Patient will continue with current wound care. Patient will follow up at the wound Care Center within 1 week to continue his care. Lab-BMP will be monitored twice a week. After 6 weeks of therapy patient can be reassessed. After that time PICC line can be removed. 3. Patient with history of diabetes mellitus type 2, chronic renal disease stage III, BPH, hypothyroidism and hyperlipidemia. At discharge patient will continue with current medications. Further adjustment in medication can be done by PCP. Diet: ADA Activity: Fall precautions Time spent managing pt's care (in minutes): 55
[2019-12-07] MEDS: ATORVASTATIN 40 MG TAB PO SCH (21:04)
[2019-12-07] MEDS: CEFAZOLIN/SWI 1gm 1 GM/10 ML SYR IV SCH (21:41)
[2019-12-07] MEDS ORDERED: CEFAZOLIN SODIUM 1 GM/VIAL ONE (21:42)
[2019-12-08 01:37] VITALS: O2SAT 98
--- NOTE | 2019-12-08 01:50 | PN ---
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 Review of Systems: Patient denies chest pain, palpitation. He complains of generalized weakness. Physical Examination: Lungs: Clear to auscultation bilaterally. Heart: S1-S2. Abdomen: Soft, benign. Extremities: Slight edema. Laboratory Data: WBC 8.9, hemoglobin 10.4, platelet count 275,000. Sodium 135 , potassium 3.5, chloride 95, CO2 32, BUN 67, creatinine 1.62, glucose 127, calcium 8.5, phosphorus 3.6, magnesium 1.8. Impression And Plan: Acute on chronic kidney injury. Patient has underlying chronic kidney disease stage 3. On arrival to the hospital lab work showed creatinine of 2.03, BUN was severely elevated and he is gradually improving. There is persistent prerenal azotemia. BUN is trending down from 67 to 63. Patient will continue adequate hydration to prevent renal hypoperfusion. There is mild hypokalemia and it was replaced. Potassium level improved from 3.2 to 3.5. Hyponatremia, mild, sodium level although improved gradually from 128 to 135. Continue to monitor fluid balance. Adjust treatment. I spent total 36 min including 25 min to coordinate care plan. MARION/SUSHANT Voice ID: [id number] Report ID: [id number] ANN
[2019-12-08 05:08] LABS: Albumin 2.3 g/dL (3.4-5.0); Magnesium 1.8 mg/dL (1.8-2.4); Phosphorus 4.1 mg/dL (2.5-4.9); Potassium 3.8 mmol/L (3.5-5.1)
[2019-12-08] MEDS: LEVOTHYROXINE SOD 0.05 MG TABLET PO SCH (05:34)
[2019-12-08] MEDS: INSULIN LISPRO 100 UNIT/1 ML SQ SCH (07:30)
[2019-12-08] MEDS: METOPROLOL XL 25 MG TAB PO SCH (08:47)
[2019-12-08] MEDS: POTASSIUM CL SA 10 MEQ TAB PO SCH (08:47)
[2019-12-08] MEDS: PANTOPRAZOLE 40MG TABLET PO SCH (08:48)
[2019-12-08] MEDS: TAMSULOSIN 0.4 MG SR CAP PO SCH (08:48)
[2019-12-08] MEDS: glipiZIDE 5 MG TAB PO SCH (08:48)
[2019-12-08] MEDS: SPIRONOLACTONE 25 MG TABLET PO SCH (08:48)
[2019-12-08] MEDS: hydrOXYzine HCL 25 MG TAB PO SCH (08:48)
[2019-12-08] MEDS: FUROSEMIDE 40 MG TABLET PO SCH (08:48)
[2019-12-08] MEDS: ENOXAPARIN 30 MG/0.3 ML SQ SCH (08:48)
[2019-12-08 09:52] VITALS: BP 133/65; TEMP 97.9
[2019-12-08] MEDS: CEFAZOLIN/SWI 1gm 1 GM/10 ML SYR IV SCH (10:24)
--- NOTE | 2019-12-08 10:44 | P.PN ---
Subjective Date of Service: 12/08/19 Primary Care Provider: Dr. Mckenzie Chief Complaint: Osteomyelitis of the left foot Subjective An 84-year-old gentleman,past medical history of hypertension, diabetes complicated with neuropathy, nephropathy, hyperlipidemia, coronary artery disease and CHF presented for foot swelling, erythema and drainage today no new complaints Cr stable cleared for discharge from nephrology point of view Past Medical History: In reviewing the record for the patient, patient's baseline creatinine around 1.7 to 1.8 of creatinine. Past Medical History: Include, 1. Hypertension. 2. Pulmonary hypertension. 3. Diabetes complicated with neuropathy and nephropathy. 4. Coronary artery disease complicated with congestive heart failure. 5. 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 Allergies: NO KNOWN DRUG ALLERGIES. Family History: Positive for hypertension. Social History: Lives with family. Denies smoking. Denies drinking. Denies drugs abuse. Physical exam general: AAOX3, NAD , obese Neck; Supple, No elevated JVD hear: RRR, normal S1,2 no murmur or rub Chest: diminished air entry B/l Abdomen: Soft , Nt Extremities foot dressing, Leg erythema and swelling A/P CKD III\ due to cardiorenal and Obstructive uropathy Cr stable renal dose meds monitor vanco Foot OM wound culture MSSA cont abx as per ID DM as per PCP HTN BP controlled CHF cont lasix metolazone and aldactone Physical Examination - Vital Signs Temperature: 97.9 F Blood Pressure: 133/65 Pulse: 71 Respirations: 18 Pulse Ox (%): 95 Assessment And Plan Physician Review: Patient Assessed, Agree with Above Assessment and Plan
== END 2019-12-08 10:42 | disposition home health service (06) | DRG 539 ==
LOC: ER 15:28 → ERHOLD 21:07 → 2ND 12-03 10:33
PROVIDERS: ADMIT Hospitalist; ATTEND Family Medicine
DX: M86.172 Other acute osteomyelitis, left ankle and foot (principal); I50.33 Acute on chronic diastolic (congestive) heart failure; I13.0 Hypertensive heart and chronic kidney disease with heart failure and stage 1 through stage 4 chronic kidney disease, or unspecified chronic kidney disease; I48.20 Chronic atrial fibrillation, unspecified; N17.9 Acute kidney failure, unspecified; L03.116 Cellulitis of left lower limb; N40.0 Benign prostatic hyperplasia without lower urinary tract symptoms; K21.9 Gastro-esophageal reflux disease without esophagitis; E78.5 Hyperlipidemia, unspecified; E03.9 Hypothyroidism, unspecified; R09.02 Hypoxemia; N18.3 Chronic kidney disease, stage 3 (moderate); E11.40 Type 2 diabetes mellitus with diabetic neuropathy, unspecified; E11.21 Type 2 diabetes mellitus with diabetic nephropathy; I25.10 Atherosclerotic heart disease of native coronary artery without angina pectoris; I27.20 Pulmonary hypertension, unspecified; N13.9 Obstructive and reflux uropathy, unspecified; B95.61 Methicillin susceptible Staphylococcus aureus infection as the cause of diseases classified elsewhere; J44.9 Chronic obstructive pulmonary disease, unspecified; E78.00 Pure hypercholesterolemia, unspecified; G47.33 Obstructive sleep apnea (adult) (pediatric)
CPT/HCPCS: 36415; 36569; 71045; 80048; 80053; 80069; 80076; 80202; 81003; 81015; 82947; 83036; 83605; 83735; 83880; 84100; 84145; 84443; 85025; 85610; 85730; 87040; 87070; 87077; 87186; 87205; 93971; 96372; 99285; J0690; J1650; J1815; J2543; J2700; J3475; J7030; J7040

== ENCOUNTER 2020-07-06 13:52 | Observation (INO) | payer OTHER ==
--- OUTSIDE RECORDS SUMMARY | 2020-07-06 13:58 | XMS REPORT | Continuity of Care Document ---
:1935 Author Organization [facility] t Address [address] [place] [address] Care Team Providers Name Role Phone Cr Mckenzie MD Primary Care Physician Doctor Unassigned, Name Attending Clinician Unavailable SIMÓN Attending Clinician Unavailable Tim IYER Attending Clinician Unavailable SIMÓN Admitting Clinician Unavailable Tim IYER Admitting Clinician Unavailable Problems Condition Condition Condition Status Onset Resolution Last Treating Co mments Source Name Details Category Date Date Treatment Clinician Date Pain, Pain, Diagnosis Active [facility], [facility] Right Right Diagnosis Active [facility] sided sided [facility] - sciatica sciatica [facility] Allergies, Adverse Reactions, Alerts This patient has no known allergies or adverse reactions. Social History Social Habit Start Date Stop Date Quantity Comments Source Sex Assigned At [facility] Tobacco use and 2017-10-18 2017-10-18 Never used [facility] - exposure 00:00:00 00:00:00 [facility] Alcohol intake 2017-10-18 2017-10-18 Current [facility] es - 00:00:00 00:00:00 non-drinker of Medical nter alcohol (finding) History of 1988-09-23 Current smoker [facility] es - tobacco use 00:00:00 Medical Daina padilla Smoking Status Start Date Stop Date Source Former smoker 2017-10-18 00:00:00 2017-10-18 00:00:00 [facility] Medications Ordered Filled Start Stop Current Ordering Indication Dosage Frequency Signature Comments Components Source Medication Medication Date Date Medication? Clinician (SIG) Name Name HydrALAZINE HydrALAZINE Yes Michael [address] [facility] HCl HCl 04-30 [place] with food [facility] - 00:00: [facility] 00 l Outpati ent Clinics acetaminoph Yes Take by [facility] en 500 mg 1-24 mouth. [facility] - coapsule 16:15: Medical [address] [place] brimonidine Yes [facility] (ALPHAGAN 1-24 [facility] - P) 0.1 % 16:15: Medical Drop 53 [place] ascorbic Yes 1000mg QD Take 1,[address] acid, 1-24 mg by [facility] - vitamin C, 16:15: mouth Medica l (VITAMIN C) 53 daily. [place] 1000 MG tablet atorvastati Yes 40mg QD Take [address] [facility] n (LIPITOR) 1-24 by mouth Luke s - 40 MG 16:15: daily. Medical tablet 53 [place] B-complex Yes 1{tbl} QD Take [address] [facility] with 1-24 tablet by [facility] - vitamin C 16:15: mouth Medical tablet 53 daily. [place] lactobacill Yes 1{capsu QD Take [address] us 1-24 le} capsule by Darryl - rhamnosus, 16:15: mouth Medica l GG, 53 daily. [place] ([facility] 10 billion cell capsule carvedilol Yes 12.5mg Take 12.[address] [facility] (COREG) 1-24 mg by [facility] - 12.5 MG 16:15: mouth 2 Medical tablet 53 (two) Center times daily with breakfast and dinner. cholecalcif Yes 1000U QD Take 1,[address] [facility] [address] brenda, 1-24 Units by [facility] - vitamin D3, 16:15: mouth Medic al 1,000 unit 53 daily. [place] capsule coconut Yes by [facility] oil, bulk, 1-24 Miscellane Jose es - (COCONUT) 16:15: ous route. Me dical Oil 53 [place] cranberry Yes Take by [facility] 500 mg Cap 1-24 mouth. [facility] - 16:15: Medical [place] cyanocobala Yes 1000ug QD Take 1,[address] [facility] [address] min 1-24 mcg by [facility] - (VITAMIN 16:15: mouth Medical B-12) 1000 53 daily. Center MCG tablet diflupredna 2017-0 Yes Apply to I St te 1-24 eye(s). [facility] - (DUREZOL) 16:15: Medical 0.05 % Drop 53 Center diphenhydrA 2017-0 Yes 25mg Take [address] [facility] MINE 1-24 by mouth [facility] - (BENADRYL) 16:15: every 6 Medi ame 25 mg 53 (six) Center capsule hours as needed for Itching. ferrous 2018-0 Yes 325mg Take 325 [facility] sulfate 325 1-24 mg by [facility] - (65 FE) MG 16:15: mouth Medica l tablet 53 daily with Center breakfast. furosemide 2018-0 Yes 40mg Q.5D Take [address] (LASIX) 40 1-24 by mouth 2 Jose es - MG tablet 16:15: (two) Medical 53 times Center daily. gabapentin 2018-0 Yes 300mg [id number] Take [address] [facility] [address] (NEURONTIN) 1-24 [id number] mg by L ukes - 300 MG 16:15: 3D mouth 3 Medical capsule 53 (three) Center times daily. GINSENG 2018-0 Yes Take by [facility] ORAL 1-24 mouth. [facility] - 16:15: Medical 53 Center SITagliptin 2017-0 Yes 100mg QD Take [address] (JANUVIA) 1-24 mg by [facility] - 100 MG 16:15: mouth Medical tablet 53 daily. Center insulin 2018-0 Yes QD Inject [facility] glargine 1-24 subcutaneo [facility] - (LANTUS) 16:15: usly Medical 100 unit/mL 53 nightly Cente r injection Use as directed . insulin 2017-[address] [facility] aspart 1-24 subcutaneo [facility] - protamine-i 16:15: usly 2 Medi ame nsulin 53 (two) Center aspart times (NOVOLOG daily with MIX 70/30) breakfast 100 unit/mL and (70-30) dinner. Soln injection omeprazole 2017-0 Yes 20mg QD Take [address] (PRILOSEC) 1-24 by mouth [facility] - 20 MG 16:15: daily. Medical capsule 53 Center polycarboph 2017-0 Yes 625mg QD Take [address] il 1-24 mg by [facility] - (FIBERCON) 16:15: mouth Medica l 625 mg 53 daily. [place] tablet senna 2018-0 Yes 1{tbl} QD Take [address] [facility] (SENOKOT) 1-24 tablet by [facility] - 8.6 mg 16:15: mouth Medical tablet 53 daily. [place] telmisartan 2018-0 Yes 80mg QD Take [address] [facility] (MICARDIS) 1-24 by mouth [facility] - 80 MG 16:15: daily. Medical tablet 53 [place] polymyxin B 2018-0 Yes 1[drp] [address] sulf-trimet 1-24 [facility] - hoprim 16:15: Medical (POLYTRIM) 53 [place] 10,000 unit- 1 mg/mL Drop thiamine 2018-0 Yes 100mg QD Take [address] 100 MG 1-24 mg by [facility]ukes - tablet 16:15: mouth Medical 53 daily. [place] amiodarone 2018-0 Yes 200mg QD Take [address] (PACERONE) 1-24 mg by [facility] - 200 MG 16:15: mouth Medical tablet 53 daily. [place] Januvsd Januvia Yes Michael as [facility] NovoLog NovoLog Yes Michael as [facility] Gabapentin Gabapentin Yes Michael [address] [facility] Tramadol Tramadol Yes Michael (Schedule [facility] HCl HCl [facility] IV Drug) [facility] - TAKE ONE Memoria (1) TO TWO l (2) Outpati TABLET(S) ent BY MOUTH Clinics THREE TIMES A DAY NEEDED. Coreg Coreg Yes Michael as [facility] directed [facility] Lantus Lantus Yes Michael as [facility] directed [facility] lasix lasix Yes Michael [address] [facility] Linzess Linzess Yes Michael not [facility] defined [facility] Levothyroxi Levothyroxi Yes Michael (Prior [facility] ne Sodium ne Sodium [facility] Auth: Rx [facility] - Ref#:[id number] Memoria [id number]) l Outpati ent Clinics Flomax Flomax Yes Michael [address] [facility] 30 minutes [facility] - after the Memoria same meal l each day [facility] Procedures This patient has no known procedures. Encounters Start End Encounter Admission Attending Care Care Encounter Source Date/Time Date/Time Type Type Clinicians Facility Department ID 2019-11-02 2019-11-02 Orders Doctor MARAH [id number] 00:00:00 00:00:00 Only Unassigned, NIK [id number] [place] [id number] 2019-06-16 2019-06-16 Outpatient C SIMÓN, [facility] RAD [id number] [place] 15:18:00 23:59:00 ANTHONY [facility] 2018-04-30 2018-04-30 [facility] [id number] 13:30:00 13:30:00 t [facility] - [facility] Results Test Description Test Time Test Comments Results Result [facility] e Comments NM LUNG (V/Q ) 2019-06-16 Radionuclide SCAN*WW* 16:46:52 ventilation/perfusion lung scanLocation Code: [id number]: Shortness of breathCOMPARISON: NoneCOMMENT: Routine images of [...] 2017-10-16 13:15:00 Test Item Value Reference Range Interpretation Comme [facility] POC-GLUCOSE METER (ISHAAN) (test 157 mg/dL 70-110 H TESTED AT [facility] 7200 code = 1538) [facility] [id number]
--- OUTSIDE RECORDS SUMMARY | 2020-07-06 13:58 | XMS REPORT | Clinical Summary ---
:1935 Author Organization [facility] Address [address] [place] [id number] Care Team Providers Name Role Phone Cr Mckenzie MD Primary Care Provider Allergies No Known Allergies Medications Medication Sig Dispensed Refills Start Date End Date Status acetaminophen 500 mg Take by mouth. 0 Active coapsule brimonidine (ALPHAGAN 0 Active P) 0.1 % Drop ascorbic acid, Take 1,000 mg by 0 Active vitamin C, (VITAMIN mouth daily. C) 1000 MG tablet atorvastatin Take 40 mg by mouth 0 Active (LIPITOR) 40 MG daily. tablet B-complex with Take 1 tablet by 0 Active vitamin C tablet mouth daily. lactobacillus Take 1 capsule by 0 Active rhamnosus, GG, mouth daily. (CULTURELLE) 10 billion cell capsule carvedilol (COREG) Take 12.5 mg by 0 Active 12.5 MG tablet mouth 2 (two) times daily with breakfast and dinner. cholecalciferol, Take 1,000 Units by 0 Active vitamin D3, 1,000 mouth daily. unit capsule coconut oil, bulk, by Miscellaneous 0 Active (COCONUT) Oil route. cranberry 500 mg Cap Take by mouth. 0 Active cyanocobalamin Take 1,000 mcg by 0 Active (VITAMIN B-12) 1000 mouth daily. MCG tablet difluprednate Apply to eye(s). 0 Active (DUREZOL) 0.05 % Drop diphenhydrAMINE Take 25 mg by mouth 0 Active (BENADRYL) 25 mg every 6 (six) hours capsule as needed for Itching. ferrous sulfate 325 Take 325 mg by mouth 0 Active (65 FE) MG tablet daily with breakfast. furosemide (LASIX) 40 Take 40 mg by mouth 0 Active MG tablet 2 (two) times daily. gabapentin Take 300 mg by mouth 0 Active (NEURONTIN) 300 MG 3 (three) times capsule daily. GINSENG ORAL Take by mouth. 0 Ac tive SITagliptin (JANUVIA) Take 100 mg by mouth 0 Active 100 MG tablet daily. insulin glargine Inject 0 Act ahmet (LANTUS) 100 unit/mL subcutaneously injection nightly Use as directed . insulin aspart Inject 0 Activ e protamine-insulin subcutaneously 2 aspart (NOVOLOG MIX (two) times daily 70/30) 100 unit/mL with breakfast and (70-30) Soln dinner. injection omeprazole (PRILOSEC) Take 20 mg by mouth 0 Active 20 MG capsule daily. polycarbophil Take 625 mg by mouth 0 Active (FIBERCON) 625 mg daily. tablet senna (SENOKOT) 8.6 Take 1 tablet by 0 Active mg tablet mouth daily. telmisartan Take 80 mg by mouth 0 Active (MICARDIS) 80 MG daily. tablet polymyxin B 1 drop. 0 Active sulf-trimethoprim (POLYTRIM) 10,000 unit- 1 mg/mL Drop thiamine 100 MG Take 100 mg by mouth 0 Active tablet daily. amiodarone (PACERONE) Take 200 mg by mouth 0 Active 200 MG tablet daily. Active Problems Not on file Social History Tobacco Use Types Packs/Day Years Used Date Former Smoker Quit: 09/23/18 89 Smokeless Tobacco: Never Used Alcohol Use Drinks/Week oz/Week Comments No Sex Assigned at Date Recorded Not on file Last Filed Vital Signs Not on file Plan of Treatment Not on file Implants Implanted Type Area Dust Sampler Device Shelf Model / Identifier Expiration Serial / Lot Date Iol Tecnis [id number] 21.5 D [id number] 21.5 - [id number] Ophthalmology Left: [employer] 07/10/2022 [id number] 21.5 / Implanted: Qty: 1 on 10/16/2017 by Man Joshi MD at [facility] Eye [id number] / N/A Results Not on fileafter 07/06/2019 Insurance Payer Benefit Plan / Subscriber ID Effective Dates Phone Addre ss Type Group MEDICARE MEDICARE A B [id number] 2002-Present Medicare FOR LIFE [id number] 2011-Present Other Govt (, [place], [facility], etc .) ([place]) [place] [address]
[2020-07-06 14:50] LABS: Basophils % 0.8 % (0-1.3); Hematocrit 32.2 % (39.6-49.0); Lymphocytes % 12.6 % (15.3-44.8)
[2020-07-06 15:07] LABS: Protime INR 1.06
[2020-07-06 15:08] LABS: Bilirubin Direct 0.1 mg/dL (0-0.2); Bilirubin Total 0.3 mg/dL (0.2-1.0); CKMB Creatine Kinase MB 4.4 ng/mL (0.3-3.6); Potassium 4.3 mmol/L (3.5-5.1)
--- NOTE | 2020-07-06 15:20 | RAD REPORT ---
EXAM DES[facility]: [facility]2020 3:01 pm CLINICAL HISTORY: Right leg pain and swelling. COMPARISON: November 2019 FINDINGS: Right common femoral, superficial femoral, popliteal and right posterior tibial veins are compressible and demonstrate augmentation. Doppler demonstrates good flow. Medial distal thigh demonstrates fluid within the subcutaneous tissues. No underlying mass noted IMPRESSION: No evidence of deep venous thrombosis involving the right lower extremity.
[2020-07-06 15:43] LABS: Urine Bacteria <20 /HPF (NONE SEEN); Urine RBC <5 /HPF (NONE SEEN)
[2020-07-06 15:45] LABS: Urine Culture Reflex Order NOT NEEDED
--- NOTE | 2020-07-06 16:01 | ER ---
Nurse's Notes [facility] Name: Jimmy Soto Age: 84 yrs Sex: Male : 1935 Arrival Date: 07/06/2020 Time: 13:56 Bed 7 Private MD: Diagnosis: Cellulitis of right lower limb Presentation: 07/06 14:08 Chief complaint: Patient states: R knee pain and swelling x 2 weeks. Reports pain and ca1 difficulty walking on it. Coronavirus screen: Client denies travel out of the [place] in the last 14 days. At this time, the client does not indicate any symptoms associated with coronavirus-19. Ebola Screen: Patient negative for fever greater than or equal to 101.5 degrees Fahrenheit, and additional compatible Ebola Virus Disease symptoms Patient denies exposure to infectious person. Patient denies travel to an Ebola-affected area in the 21 days before illness onset. No symptoms or risks identified at this time. Initial Sepsis Screen: Does the patient meet any 2 criteria? No. Patient's initial sepsis screen is negative. Does the patient have a suspected source of infection? No. Patient's initial sepsis screen is negative. Risk Assessment: Do you want to hurt yourself or someone else? Patient reports no desire to harm self or others. Onset of symptoms was July 06, 2020. 14:08 Method Of Arrival: Wheelchair ca1 14:08 Acuity: ART 3 ca1 Historical: - Allergies: 14:14 No Known Allergies; ca1 - Home Meds: 14:14 atorvastatin 40 mg Oral tab 1 tab once daily [Active]; allopurinol 100 mg Oral tab 1 ca1 tab once daily [Active]; Cipro 500 mg Oral tab 1 tab 2 times per day [Active]; doxycycline hyclate 100 mg Oral cap 1 cap 2 times per day [Active]; furosemide 80 mg Oral tab 1 tab 2 times per day [Active]; glipizide 5 mg Oral tab 1 tab 2 times per day [Active]; hydroxyzine HCl 25 mg Oral tab 1 tab 3 times per day [Active]; levothyroxine 50 mcg tab 1 tab once daily [Active]; metolazone 10 mg Oral tab 1 tab once daily [Active]; metoprolol succinate 25 mg oral Tb24 1 tab once daily [Active]; pantoprazole 40 mg Oral TbEC 1 tab once daily [Active]; potassium chloride 20 mEq Oral TbTQ 1 tab 2 times per day [Active]; spironolactone 25 mg Oral tab 1 tab once daily [Active]; tamsulosin 0.4 mg Oral cp24 1 cap once daily [Active]; - PMHx: 14:14 Cellulitis; CHF; COPD; Diabetes - IDDM; Hyperlipidemia; Hypertension; leg ca1 swelling/sores; Pneumonia; - PSHx: 14:14 cesar arms; R hip; ca1 - Immunization history:: Adult Immunizations up to date, Pneumococcal vaccine is up to date, Flu vaccine is up to date. - Social history:: Smoking status: Patient/guardian denies using tobacco, the patient reports quitting approximately 30 years ago. Screenin:53 Abuse screen: Denies threats or abuse. Denies injuries from another. Nutritional ph screening: No deficits noted. Tuberculosis screening: No symptoms or risk factors identified. Fall Risk No fall in past 12 months (0 pts). Secondary diagnosis (15 points) impaired mobility, IV access (20 points). Ambulatory Aid- Crutches/Cane/Walker (15 pts). Gait- Weak (10 pts.). Mental Status- Oriented to own ability (0 pts). Total Lopez Fall Scale indicates High Risk Score (45 or more points). Fall prevention measures have been instituted. Side Rails Up X 2 Placed Close to Nursing Station Frequent Obs/Assessments Occuring Family Present and informed to notify staff if the need to leave the bedside As available patient and family educated on Fall Prevention Program and Strategies. Assessment: 14:54 General: Appears in no apparent distress. comfortable, well groomed, Behavior is calm, ph cooperative, appropriate for age, Denies fever, feeling ill. Pain: Denies pain. Neuro: Level of Consciousness is awake, alert, obeys commands, Oriented to person, place, time, situation. Cardiovascular: Denies chest pain, shortness of breath, Capillary refill < 3 seconds in bilateral fingers Patient's skin is warm and dry. Edema is 2+ to left midcalf, left ankle, right midcalf and right ankle. Respiratory: Airway is patent Respiratory effort is even, unlabored, Respiratory pattern is regular, symmetrical. GI: No signs and/or symptoms were reported involving the gastrointestinal system. Derm: Skin is healthy with good turgor, Skin is pink, warm \T\ dry. redness and warmth noted to bilateral lower extremities. Musculoskeletal: Circulation, motion, and sensation intact. Range of motion: intact in all extremities. 15:45 Reassessment: Patient appears in no apparent distress at this time. Patient and/or ph family updated on plan of care and expected duration. Pain level reassessed. Patient is alert, oriented x 3, equal unlabored respirations, skin warm/dry/pink. 16:43 Reassessment: Patient appears in no apparent distress at this time. Patient and/or ph family updated on plan of care and expected duration. Pain level reassessed. Patient is alert, oriented x 3, equal unlabored respirations, skin warm/dry/pink. 17:42 Reassessment: Patient appears in no apparent distress at this time. Patient and/or ph family updated on plan of care and expected duration. Pain level reassessed. Patient is alert, oriented x 3, equal unlabored respirations, skin warm/dry/pink. Vital Signs: 14:08 BP 146 / 70; Pulse 71; Resp 16 S; Temp 97(TE); Pulse Ox 92% on R/A; Weight 108.41 kg ca1 (R); Height 5 ft. 7 in. (170.18 cm) (R); Pain 8/10; 15:33 BP 111 / 63; Pulse 69; Resp 18; Pulse Ox 92% on R/A; ph 16:20 BP 125 / 64; Pulse 69; Resp 16; Pulse Ox 96% ; sv 17:30 BP 120 / 66; Pulse 68; Resp 18; Temp 97.8; Pulse Ox 94% on R/A; ph 14:08 Body Mass Index 37.43 (108.41 kg, 170.18 cm) ca1 ED Course: 13:56 Patient arrived in ED. mr 13:58 Virgilio Gomez MD is Attending Physician. kdr 14:02 Rose Leon RN is Primary Nurse. ph 14:10 Triage completed. ca1 14:14 Arm band placed on right wrist. ca1 14:40 Initial lab(s) drawn, by ED staff, sent to lab. Inserted saline lock: 20 gauge in right ph forearm, using aseptic technique. Blood collected. 14:52 Patient has correct armband on for positive identification. Bed in low position. Call ph light in reach. Side rails up X2. sole cutter on. Pulse ox on. NIBP on. Door closed. Noise minimized. Warm blanket given. Pillow given. 15:01 US Extremity Venous Unilateral Ltd In Process Unspecified. EDMS 15:59 Paras Jay DO is Hospitalizing Provider. kdr 16:43 No provider procedures requiring assistance completed. Patient admitted, IV remains in ph place. Administered Medications: 16:41 Drug: Rocephin - (cefTRIAXone) 1 grams Route: IVPB; Infused Over: 30 mins; Site: right ph forearm; 16:48 Follow up: Response: No adverse reaction; IV Status: Completed infusion ph 16:48 Drug: vancoMYCIN 1.5 grams Route: IVPB; Rate: calculated rate; Site: right forearm; ph 17:36 Follow up: IV Status: Infusion continued upon admission ph 17:36 Follow up: Response: No adverse reaction ph Outcome: 16:00 Decision to Hospitalize by Provider. kdr 17:43 Admitted to Med/surg accompanied by tech, via stretcher, room 225, with chart. ph 17:43 Condition: stable 17:43 Instructed on the need for admit. 17:43 Patient left the ED. ph Signatures: Dispatcher [employer] EDMS Diane Ortiz RN RN Virgilio Gomez MD MD [facility] Ana Finney mr Rose Leon RN RN Candi Ragsdale RN RN ca1
--- NOTE | 2020-07-06 16:01 | EDPHYS ---
Physician Documentation [facility] Name: Jimmy Soto Age: 84 yrs Sex: Male : 1935 Arrival Date: 07/06/2020 Time: 13:56 Bed 7 Private MD: ED Physician Virgilio Gomez HPI: 07/06 14:17 This 84 yrs old Male presents to ER via Wheelchair with complaints of Leg kdr Swelling. 14:17 The patient presents with decreased range of motion, pain, that is acute, swelling, kdr tenderness. The complaints affect the medial aspect of right thigh. Context: The problem was sustained at home, resulted from an unknown cause, the patient can partially bear weight, the patient is able to ambulate, uses a walker, Problem is a result from a previous injury: No. Onset: The symptoms/episode began/occurred gradually, More than two days. Modifying factors: The symptoms are alleviated by nothing. the symptoms are aggravated by movement, palpation. Associated signs and symptoms: Pertinent positives: swelling, warmth. Treatment prior to arrival includes: no previous treatment. Severity of symptoms: At their worst the symptoms were moderate, in the emergency department the symptoms are unchanged. The patient has not experienced similar symptoms in the past. The patient has been recently seen by a physician: the patient's primary care provider. Historical: - Allergies: 14:14 No Known Allergies; ca1 - Home Meds: 14:14 atorvastatin 40 mg Oral tab 1 tab once daily [Active]; allopurinol 100 mg Oral tab 1 ca1 tab once daily [Active]; Cipro 500 mg Oral tab 1 tab 2 times per day [Active]; doxycycline hyclate 100 mg Oral cap 1 cap 2 times per day [Active]; furosemide 80 mg Oral tab 1 tab 2 times per day [Active]; glipizide 5 mg Oral tab 1 tab 2 times per day [Active]; hydroxyzine HCl 25 mg Oral tab 1 tab 3 times per day [Active]; levothyroxine 50 mcg tab 1 tab once daily [Active]; metolazone 10 mg Oral tab 1 tab once daily [Active]; metoprolol succinate 25 mg oral Tb24 1 tab once daily [Active]; pantoprazole 40 mg Oral TbEC 1 tab once daily [Active]; potassium chloride 20 mEq Oral TbTQ 1 tab 2 times per day [Active]; spironolactone 25 mg Oral tab 1 tab once daily [Active]; tamsulosin 0.4 mg Oral cp24 1 cap once daily [Active]; - PMHx: 14:14 Cellulitis; CHF; COPD; Diabetes - IDDM; Hyperlipidemia; Hypertension; leg ca1 swelling/sores; Pneumonia; - PSHx: 14:14 cesar arms; R hip; ca1 - Immunization history:: Adult Immunizations up to date, Pneumococcal vaccine is up to date, Flu vaccine is up to date. - Social history:: Smoking status: Patient/guardian denies using tobacco, the patient reports quitting approximately 30 years ago. ROS: 14:17 Constitutional: Negative for fever, chills, and weight loss, Eyes: Negative for injury, kdr pain, redness, and discharge, ENT: Negative for injury, pain, and discharge, Neck: Negative for injury, pain, and swelling, Cardiovascular: Negative for chest pain, palpitations, and edema, Respiratory: Negative for shortness of breath, cough, wheezing, and pleuritic chest pain, Abdomen/GI: Negative for abdominal pain, nausea, vomiting, diarrhea, and constipation, Back: Negative for injury and pain, Neuro: Negative for headache, weakness, numbness, tingling, and seizure activity. Psych: Negative for depression, anxiety, suicide ideation, homicidal ideation, and hallucinations, Allergy/Immunology: Negative for hives, rash, and allergies, Endocrine: Negative for neck swelling, polydipsia, polyuria, polyphagia, and marked weight changes, Hematologic/Lymphatic: Negative for swollen nodes, abnormal bleeding, and unusual bruising. 14:17 Skin: Positive for erythema, swelling, of the medial aspect of right thigh. Exam: 14:17 Constitutional: This is a well developed, well nourished patient who is awake, alert, kdr and in no acute distress. Head/Face: Normocephalic, atraumatic. Eyes: Pupils equal round and reactive to light, extra-ocular motions intact. Lids and lashes normal. Conjunctiva and sclera are non-icteric and not injected. Cornea within normal limits. Periorbital areas with no swelling, redness, or edema. Neck: Trachea midline, no thyromegaly or masses palpated, and no cervical lymphadenopathy. Supple, full range of motion without nuchal rigidity, or vertebral point tenderness. No Meningismus. Chest/axilla: Normal chest wall appearance and motion. Nontender with no deformity. No lesions are appreciated. Cardiovascular: Regular rate and rhythm with a normal S1 and S2. No gallops, murmurs, or rubs. Normal PMI, no JVD. No pulse deficits. Respiratory: Lungs have equal breath sounds bilaterally, clear to auscultation and percussion. No rales, rhonchi or wheezes noted. No increased work of breathing, no retractions or nasal flaring. Abdomen/GI: Soft, non-tender, with normal bowel sounds. No distension or tympany. No guarding or rebound. No evidence of tenderness throughout. Back: No spinal tenderness. No costovertebral tenderness. Full range of motion. Neuro: Awake and alert, GCS 15, oriented to person, place, time, and situation. Cranial nerves II-XII grossly intact. Motor strength 5/5 in all extremities. Sensory grossly intact. Cerebellar exam normal. Normal gait. Psych: Awake, alert, with orientation to person, place and time. Behavior, mood, and affect are within normal limits. 14:17 Skin: induration, that is mild is noted, located on the lateral aspect of right calf, right calf, medial aspect of right calf and right mills, rash a moderate rash is noted, rash can be described as erythematous, macular, nonspecific. 18:59 ECG was reviewed by the Attending Physician. kdr Vital Signs: 14:08 BP 146 / 70; Pulse 71; Resp 16 S; Temp 97(TE); Pulse Ox 92% on R/A; Weight 108.41 kg ca1 (R); Height 5 ft. 7 in. (170.18 cm) (R); Pain 8/10; 15:33 BP 111 / 63; Pulse 69; Resp 18; Pulse Ox 92% on R/A; ph 16:20 BP 125 / 64; Pulse 69; Resp 16; Pulse Ox 96% ; sv 17:30 BP 120 / 66; Pulse 68; Resp 18; Temp 97.8; Pulse Ox 94% on R/A; ph 14:08 Body Mass Index 37.43 (108.41 kg, 170.18 cm) ca1 MDM: 14:17 Data reviewed: vital signs, nurses notes, lab test result(s), radiologic studies. kdr 16:00 Patient medically screened. kdr 07/06 14:14 Order name: Amylase, Serum; Complete Time: 15:49 kdr 07/06 14:14 Order name: Basic Metabolic Panel; Complete Time: 15:49 kdr 07/06 14:14 Order name: Blood Culture Adult (2) kdr 07/06 14:14 Order name: CBC with Diff; Complete Time: 15:49 kdr 07/06 14:14 Order name: Ckmb; Complete Time: 15:49 kdr 07/06 14:14 Order name: CPK; Complete Time: 15:49 kdr 07/06 14:14 Order name: Lactate; Complete Time: 15:49 kdr 07/06 14:14 Order name: LFT's; Complete Time: 15:49 kdr 07/06 14:14 Order name: Lipase; Complete Time: 15:49 kdr 07/06 14:14 Order name: Procalcitonin; Complete Time: 15:49 kdr 07/06 14:14 Order name: Protime (+inr); Complete Time: 15:49 kdr 07/06 14:14 Order name: Ptt, Activated; Complete Time: 15:49 kdr 07/06 14:14 Order name: Urine Microscopic Only; Complete Time: 15:49 kdr 07/06 14:51 Order name: Urine Dipstick--Ancillary (enter results) bd 07/06 14:14 Order name: Accucheck; Complete Time: 14:42 kdr 07/06 14:14 Order name: Cardiac monitoring; Complete Time: 14:41 kdr 07/06 14:15 Order name: EKG - Nurse/Tech; Complete Time: 14:41 kdr 07/06 14:15 Order name: IV Saline Lock - Large Bore; Complete Time: 14:42 kdr 07/06 14:15 Order name: Labs collected and sent; Complete Time: 14:42 kdr 07/06 14:15 Order name: O2 Per Protocol; Complete Time: 14:41 kdr 07/06 14:15 Order name: O2 Sat Monitoring; Complete Time: 14:42 kdr 07/06 14:15 Order name: Urine Dipstick-Ancillary (obtain specimen); Complete Time: 14:42 kdr 07/06 14:15 Order name: US Extremity Venous Unilateral Ltd; Complete Time: 15:49 kdr 07/06 15:45 Order name: Urine Culture EDMS EC:59 Rate is 70 beats/min. Rhythm is regular, A flutter with No ectopy. QRS [place] is Normal. kdr [place] interval is normal. QRS interval is normal. QT interval is normal. Clinical impression: Atrial Flutter. Administered Medications: 16:41 Drug: Rocephin - (cefTRIAXone) 1 grams Route: IVPB; Infused Over: 30 mins; Site: right ph forearm; 16:48 Follow up: Response: No adverse reaction; IV Status: Completed infusion ph 16:48 Drug: vancoMYCIN 1.5 grams Route: IVPB; Rate: calculated rate; Site: right forearm; ph 17:36 Follow up: IV Status: Infusion continued upon admission ph 17:36 Follow up: Response: No adverse reaction ph Disposition: 07/06/20 16:00 Hospitalization ordered by Paras Jay for Observation. Preliminary diagnosis is Cellulitis of right lower limb. - Bed requested for Telemetry/MedSurg (observation). - Status is Observation. ph - Condition is Fair. - Problem is an acute exacerbation. - Symptoms have improved. Signatures: Dispatcher [employer] EDNereida Lott RN RN kl Rittger, Kevin, MD MD [facility] Rose Leon RN RN [facility] Corrections: (The following items were deleted from the chart) 16:56 16:00 Hospitalization Ordered by Paras Jay DO for Inpatient Admission. Preliminary [facility] diagnosis is Cellulitis of right lower limb. Bed requested for Telemetry/MedSurg (Inpatient). Status is Inpatient Admission. Condition is Fair. Problem is an acute exacerbation. Symptoms have improved. [facility] 17:04 16:56 07/06/2020 16:00 Hospitalization Ordered by Paras Jay DO for Observation. kl Preliminary diagnosis is Cellulitis of right lower limb. Bed requested for Telemetry/MedSurg (observation). Status is Observation. Condition is Fair. Problem is an acute exacerbation. Symptoms have improved. kdr 17:43 17:04 07/06/2020 16:00 Hospitalization Ordered by Paras Jay DO for Observation. ph Preliminary diagnosis is Cellulitis of right lower limb. Bed requested for Telemetry/MedSurg (observation). Status is Observation. Condition is Fair. Problem is an acute exacerbation. Symptoms have improved.
[2020-07-06] MEDS ORDERED: CEFTRIAXONE/SWI 1gm 1 GM/10 ML SYR ONE (16:32)
[2020-07-06] MEDS ORDERED: VANCOMYCIN 1.5 GM in NA CHLORIDE 0.9% 500 ML IVPB ONE (17:00)
--- NOTE | 2020-07-06 17:12 | P.HP ---
Certification for Inpatient Patient admitted to: Observation With expected LOS: <2 Midnights Patient will require the following post-hospital care: None Practitioner: I am a practitioner with admitting privileges, knowledge of patient current condition, hospital course, and medical plan of care. Services: Services provided to patient in accordance with Admission requirements found in Title 42 Section 412.3 of the Code of Federal Regulations Patient History Date of Service: 07/06/20 Primary Care Provider: Dr. Mckenzie; Nephrology-Dr. Kincaid; Cardiology-Dr. Gagnon Reason for admission: Right lower extremity cellulitis History of Present Illness: 84-year-old male with multiple medical problems including chronic r enal disease stage III, hypertension, diabetes, atrial fibrillation not on chronic anti coagulation therapy, diastolic CHF, chronic lymphedema, hyperlipidemia and hypothyroidism. Patient was sent over to the ER by a nephrology due to increasing swelling, erythema and warmth to the right lower extremity. Patient reports over the past week this has been getting worse. Today caregiver noted increasing erythema up to the knee. Erythema follows along the right lower extremity just above the ankle region circumferentially. Mild fever and chills noted chest pain, shortness of breath. In the ER patient was evaluated. Venous Doppler unremarkable. Pro calcitonin negative. Lactic acid within normal range. White count 8.2, hemoglobin 10.7. Platelet count 184. Sodium 132, potassium 4.3, BUN 73, his creatinine 2.13 with a GFR 30. Glucose 309. Patient admitted for further evaluation and treatment. When I saw the patient ER, he appeared comfortable. Erythema noted to the right lower extremity. Caregiver at bedside. Allergies No Known Allergies Allergy (Verified 01/19/18 04:44) Home medications list reviewed: Yes Home Medications: Atorvastatin Calcium 40 mg PO DAILY 12/03/19 Furosemide 80 mg PO BID 12/03/19 Hydroxyzine HCl [Atarax] 25 mg PO TID 12/03/19 Levothyroxine Sodium [Synthroid] 50 mcg PO DAILY 12/03/19 Metolazone [Zaroxolyn] 10 mg PO DIRECTED 12/03/19 Metoprolol Tartrate 25 mg PO DAILY 12/03/19 Pantoprazole [Protonix Tab*] 40 mg PO DAILY 12/03/19 Potassium Chloride [Klor-Con 10] 20 meq PO BID 12/03/19 Spironolactone 25 mg PO DAILY 12/03/19 Tamsulosin [Flomax*] 1 tab PO BID 12/03/19 glipiZIDE [Glipizide] 5 mg PO BID 12/03/19 - Past Medical/Surgical History Diabetic: Yes -: HTN -: Hyperlipidemia -: Diabetes mellitus type 2 insulin-dependent -: History of asbestosis -: MRSA foot w/ cellulitis -: Obstructive sleep apnea -: Chronic atrial fibrillation not on chronic anti coagulation -: Diastolic CHF -: Chronic lymphedema -: Hypothyroidism -: Chronic renal disease stage III -: Bilateral wrist sx (fell off [place] and broke both wrist) -: cataract sx -: Right hip sx r/t fx Psychosocial/ Personal History: Patient lives at home by himself but has caregiver coming throughout the week. - Family History Mother Notes: denies having family history of illness Father Notes: denies having family history of illness Sister Notes: denies having family history of illness Brother Notes: denies having family history of illness - Social History Smoking Status: Never smoker Alcohol use: No CD- Drugs: No Caffeine use: Yes Place of Residence: Home Review of Systems General: Fever, Chills, Weakness, As per HPI Eyes: Unremarkable ENT: Unremarkable Respiratory: Unremarkable Cardiovascular: Unremarkable Gastrointestinal: Unremarkable Genitourinary: Unremarkable Musculoskeletal: Pedal edema, As per HPI Integumentary: As per HPI Neurological: Unremarkable Lymphatics: Unremarkable Physical Examination - Physical Exam General: Alert, In no apparent distress, Oriented x3, Cooperative HEENT: Atraumatic, Normocephalic, Mucous membr. moist/pink Neck: Supple Respiratory: Clear to auscultation bilaterally, Normal air movement Cardiovascular: Normal pulses Gastrointestinal: Normal bowel sounds, Soft and benign, Non-distended, No ascites, No tenderness, No masses, No rebound, No guarding Musculoskeletal: Other (Erythema circumferentially just below the knee to the ankle region. Warmth noted. Increasing edema to the lower extremity noted right slightly greater than left. No evidence of skin breakdown.) Integumentary: Other (As above) Neurological: Normal speech, Normal strength at 5/5 x4 extr, Normal tone, Normal affect - Studies Laboratory Data (last 24 hrs) 07/06/20 14:25: PT 12.5, INR 1.06, APTT 35.2 07/06/20 14:25: WBC 8.2, Hgb 10.7 L, Hct 32.2 L, Plt Count 184 07/06/20 14:25: Sodium 132 L, Potassium 4.3, BUN 73 H, Creatinine 2.13 H, Glucose 309 H, Total Bilirubin 0.3, AST 10 L, ALT 16, Alkaline Phosphatase 89, Amylase 34, Lipase 100 Assessment and Plan - Plan Impression: Right lower extremity cellulitis complicated with chronic lymphedema Diabetes mellitus type 2 insulin-dependent with hyperglycemia Acute on chronic renal disease stage III Chronic diastolic CHF Chronic atrial fibrillation not on chronic anti coagulation therapy Hypertension Hyperlipidemia BPH Gout Hypothyroidism GERD Obesity Plan: Right lower extremity cellulitis complicated with chronic lymphedema: Patient will be admitted for further evaluation and treatment. Will continue with IV vancomycin and cefepime. Venous Doppler unremarkable. Will provide DVT prophylaxis-heparin. Will provide medication for pain. Elevate leg when sitting or lying. Anticipate improvement over the next 48 hr. Will continue to reassess. Diabetes mellitus type 2 insulin-dependent with hyperglycemia: Will check previous A1c. Will start Lantus 10 units subcu at bedtime. Will provide sliding scale and monitor Accu-Cheks. Acute on chronic renal disease stage III: Will consult Nephrology to further evaluate. Nephrology has made recent adjustments to increase his Lasix. Patient also on metolazone and Aldactone. Will continue with diuretic therapy. Continue fluid restriction. Await further recommendations from nephrology. Chronic diastolic CHF: Continue fluid restriction. Continue with diuretic therapy. Chronic atrial fibrillation not on chronic anti coagulation therapy: Patient currently on DVT prophylaxis. Will check EKG. Continue rate control medication. Hypertension: Continue Toprol-XL 25 mg daily. Hyperlipidemia: Continue Lipitor BPH: Continue Flomax Gout: Continue allopurinol Hypothyroidism: Will check tsh and free T4. Continue levothyroxine 50 mcg daily GERD: Continue Protonix. Obesity: Will address lifestyle modification education. Discharge Plan: Home Plan to discharge in: 48 Hours - Advance Directives Does patient have a Living Will: No Does patient have a Durable POA for Healthcare: Yes - Code Status/Comfort Care Code Status Assessed: Yes (Patient is full code) Time Spent Managing Pts Care (In Minutes): 55
[2020-07-06] MEDS ORDERED: ACETAMINOPHEN 500 MG TAB PO PRN (17:58)
[2020-07-06] MEDS ORDERED: hydrOXYzine HCL 25 MG TAB PO PRN (17:58)
[2020-07-06] MEDS ORDERED: ONDANSETRON 4 MG/2 ML VIAL IV PRN (17:58)
[2020-07-06] MEDS ORDERED: TRAMADOL HCL 50 MG TAB PO PRN (17:58)
[2020-07-06] MEDS ORDERED: GLUCAGON 1 MG/VIAL IM PRN (17:58)
[2020-07-06] MEDS ORDERED: HYDROCODONE/APAP 5/325 MG TAB PO PRN (17:58)
[2020-07-06] MEDS ORDERED: D50W 25 GM/50 ML SYRINGE/VIAL IV PRN (17:58)
[2020-07-06 18:39] VITALS: BMI 37.4
[2020-07-06] MEDS: FUROSEMIDE 40 MG/4 ML VIAL IV SCH (19:12)
[2020-07-06] MEDS: CEFEPIME/SWI 1gm 10 ML IV SCH (20:09)
[2020-07-06 20:13] LABS: Urine Blood TRACE (NEG); Urine Glucose NEGATIVE (NEG); Urine Protein TRACE (NEG)
[2020-07-06] MEDS: INSULIN -REGULAR HUMAN 50 UNIT/0.5 ML ML SQ SCH (20:22)
[2020-07-06] MEDS: HEPARIN 5000 UNIT/ML 1 ML VIAL SQ SCH (21:00)
[2020-07-06] MEDS ORDERED: VANCOMYCIN 500 MG in NA CHLORIDE 0.9% 100 ML IVPB ONE (21:00)
[2020-07-06] MEDS ORDERED: ATORVASTATIN 40 MG TAB PO SCH (21:00)
[2020-07-06] MEDS ORDERED: TAMSULOSIN 0.4 MG SR CAP PO SCH (21:00)
[2020-07-06] MEDS ORDERED: INSULIN GLARGINE 100 UNITS/ML SQ SCH (21:00)
[2020-07-07] MEDS: FUROSEMIDE 40 MG/4 ML VIAL IV SCH ×2 (00:27→10:09)
[2020-07-07 05:54] LABS: Absolute Lymphocytes (CBC) 0.4 K/uL (0.7-4.9); Basophils % 0.6 % (0-1.3); Lymphocytes % 4.7 % (15.3-44.8); MPV 7.8 fL (7.6-11.3); RBC Red Blood Cell Count 3.91 M/uL (4.33-5.43)
[2020-07-07] MEDS ORDERED: METOPROLOL XL 25 MG TAB PO SCH (06:00)
[2020-07-07] MEDS: PANTOPRAZOLE 40MG TABLET PO SCH ×2 (06:04→10:06)
[2020-07-07 06:11] LABS: Magnesium 1.7 mg/dL (1.8-2.4); Potassium 3.9 mmol/L (3.5-5.1); Thyroid Stimulating Hormone 3.24 uIU/mL (0.360-3.740)
[2020-07-07] MEDS ORDERED: LEVOTHYROXINE SOD 0.05 MG TABLET PO SCH (06:30)
[2020-07-07] MEDS: INSULIN -REGULAR HUMAN 50 UNIT/0.5 ML ML SQ SCH ×3 (07:30→17:26)
[2020-07-07 08:56] VITALS: O2SAT 91
[2020-07-07] MEDS ORDERED: MAGNESIUM SULFATE 1 gm IVPB 1 GM/100 ML BAG IV ONE (09:00)
[2020-07-07] MEDS ORDERED: METOLAZONE 5 MG TABLET PO SCH (09:00)
[2020-07-07] MEDS ORDERED: SPIRONOLACTONE 25 MG TABLET PO SCH (09:00)
[2020-07-07] MEDS: HEPARIN 5000 UNIT/ML 1 ML VIAL SQ SCH (09:00)
[2020-07-07] MEDS ORDERED: CEFEPIME 1 GM/VIAL IV SCH (09:00)
[2020-07-07] MEDS ORDERED: allopurinoL 100 MG TAB PO SCH (09:00)
--- NOTE | 2020-07-07 09:25 | RAD REPORT ---
EXAM DESCRIPTION: RAD - Hip Right 2 View - 07/07/2020 9:16 am CLINICAL HISTORY: right hip pain Hip pain COMPARISON: Hip Right 2 View dated 01/19/2018; Lumbar Spine 3 Views dated 04/30/2018 FINDINGS: Hardware is in place in the proximal right femur. Two screws are seen to traverse a ununit ed fracture of the femoral neck, with the screws positioned along the superior aspect of the right fe moral head. Mild lucency is present surrounding the screws as it traverses the fracture line.
--- NOTE | 2020-07-07 09:27 | RAD REPORT ---
EXAM DESCRIPTION: RAD - Knee Right 3 View - 07/07/2020 9:18 am CLINICAL HISTORY: right knee pain Knee pain swelling. COMPARISON: Foot Left 3 View dated 12/02/2019 FINDINGS: Osseous structure showing mild sclerotic appearance. No acute fracture or dislocation seen . Mild tricompartmental osteoarthritis is present. Atherosclerosis. No significant joint effusion.
[2020-07-07] MEDS: CEFEPIME/SWI 1gm 10 ML IV SCH (10:04)
[2020-07-07] MEDS ORDERED: Magnesium Sulfate 2gm IVPB 2 G/50 ML BAG IV ONE (12:43)
--- NOTE | 2020-07-07 13:44 | P.DS ---
Admission Date: 07/06/20 Discharge Date: 07/07/20 Primary Care Provider: Dr. Mckenzie; Nephrology-Dr. Kincaid; Cardiology-Dr. Gagnon Disposition: ROUTINE DISCHARGE Discharge Condition: GOOD Reason for Admission: Right lower extremity cellulitis Consultations: Nephrology-Dr. Kincaid Orthopedics-Dr. Trammell Procedures: Venous doppler: FINDINGS: Right common femoral, superficial femoral, popliteal and right posterior tibial veins are compressible and demonstrate augmentation. Doppler demonstrates good flow. Medial distal thigh demonstrates fluid within the subcutaneous tissues. No underlying mass noted IMPRESSION: No evidence of deep venous thrombosis involving the right lower extremity. Xray: COMPARISON: Hip Right 2 View dated 01/19/2018; Lumbar Spine 3 Views dated 04/30/2018 FINDINGS: Hardware is in place in the proximal right femur. Two screws are seen to traverse a ununited fracture of the femoral neck, with the screws positioned along the superior aspect of the right femoral head. Mild lucency is present surrounding the screws as it traverses the fracture line. Medical Problem List: Right lower extremity cellulitis complicated with chronic lymphedema Right hip pain with prior hip surgery in 2019 now with noted ununited fracture of the femoral neck Diabetes mellitus type 2 insulin-dependent with hyperglycemia Acute on chronic renal disease stage III Chronic diastolic CHF Chronic atrial fibrillation not on chronic anti coagulation therapy Hypertension Hyperlipidemia BPH Gout Hypothyroidism GERD Obesity, BMI 37.4 Brief History of Present Illness: 84-year-old male with multiple medical problems including chronic renal disease stage III, hypertension, diabetes, atrial fibrillation not on chronic anti coagulation therapy, diastolic CHF, chronic lymphedema, hyperlipidemia and hypothyroidism. Patient was sent over to the ER by a nephrology due to increasing swelling, erythema and warmth to the right lower extremity. Patient reports over the past week this has been getting worse. Today caregiver noted increasing erythema up to the knee. Erythema follows along the right lower extremity just above the ankle region circumferentially. Mild fever and chills noted chest pain, shortness of breath. In the ER patient was evaluated. Venous Doppler unremarkable. Pro calcitonin negative. Lactic acid within normal range. White count 8.2, hemoglobin 10.7. Platelet count 184. Sodium 132, potassium 4.3, BUN 73, his creatinine 2.13 with a GFR 30. Glucose 309. Patient admitted for further evaluation and treatment. When I saw the patient ER, he appeared comfortable. Erythema noted to the right lower extremity. Caregiver at bedside. Hospital Course: Patient presented with right lower extremity swelling, erythema. Patient with multiple medical problems including diabetes, chronic diastolic CHF, chronic atrial fibrillation, hypertension, hyperlipidemia and hypothyroidism. Patient was found to have right lower extremity cellulitis with lymphedema. The patient was admitted for further evaluation and treatment. His condition improved. Case discussed in detail with nephrology. Patient required increase diuresis. Patient taught on fluid restriction. At discharge patient will continue with a 1200 cc per day fluid restriction and low-salt diet. Recommend to monitor his weight daily. If his weight increases by more than 5 lb he is to contact nephrology for further recommendation. At discharge, nephrology recommends to increase Lasix 120 mg 3 times a day. The patient will continue with his other diuretic therapy including metolazone 10 mg daily and Aldactone 25 mg daily. The patient will continue with Levaquin 250 mg daily for 7 days. Recommend to elevate leg when sitting or lying. Recommend to monitor his swelling closely. Recommend follow up with nephrology within 1 week. Recommend to recheck lab-BMP at that time. Further adjustment in medication may be required. This can be done with the help of Nephrology. Patient had reported right hip pain. This has been acute on chronic. Patient with history of hip surgery in 2019. Physical therapy noted he had pain on evaluation. X-ray was done. Ununited fracture of the femoral neck was noted. Orthopedics was consulted. Orthopedics recommend that he see subspecialist in [place] for possible revision. Fall precautions in place. Patient with diabetes mellitus type 2 with hyperglycemia. His A1c in January was 6.8. Will continue with glimepiride 5 mg 1 pill twice daily. Recommend to maintain blood sugars less 140 fasting and less than 200 after meals. If blood sugars remain elevated additional medication may be required. This can be done with the help of his PCP. Patient with chronic diastolic CHF. As mentioned above diuretic therapy was adjusted. At discharge he will continue with fluid restriction as above. Patient will continue with increased dose of Lasix 120 mg 3 times a day. The patient will continue with his other diuretic therapy including metolazone 10 mg daily and Aldactone 25 mg daily. Patient with hypertension and chronic atrial fibrillation not on chronic anti coagulation therapy. This has remained stable. Patient will continue with Toprol-XL 25 mg daily. Recommend to maintain blood pressure less 150/80. Further adjustment can be done by his PCP Patient with hyperlipidemia. At discharge he will continue with Lipitor 40 mg daily. Patient with BPH. At discharge patient will continue with Flomax 0.4 mg daily. Patient with history of gout. At discharge he will continue with allopurinol 100 mg daily. Patient with hypothyroidism. At discharge patient will continue with levothyroxine 50 mcg daily. Patient with GERD. At discharge he will continue with Protonix 40 mg daily. Vital Signs/Physical Exam: Temp Pulse Resp BP Pulse Ox 97.4 F 95 H 20 123/60 93 07/07/20 12:00 07/07/20 12:00 07/07/20 12:00 07/07/20 12:00 07/07/20 12:00 General: Alert, In no apparent distress, Oriented x3, Cooperative HEENT: Atraumatic Neck: Supple Respiratory: Clear to auscultation bilaterally, Normal air movement Cardiovascular: Abnormal pulses (AFib rate controlled) Gastrointestinal: Normal bowel sounds, Soft and benign, Non-distended, No tenderness, No masses, No rebound, No guarding Integumentary: No erythema, No warmth, No cyanosis Neurological: Normal speech, Normal strength at 5/5 x4 extr, Normal tone, Normal affect Laboratory Data at Discharge: WBC 8.8 K/uL (4.3-10.9) 07/07/20 05:25 Hgb 11.4 g/dL (13.6-17.9) L 07/07/20 05:25 Hct 34.0 % (39.6-49.0) L 07/07/20 05:25 Plt Count 188 K/uL (152-406) 07/07/20 05:25 PT 12.5 SECONDS (9.5-12.5) 07/06/20 14:25 INR 1.06 07/06/20 14:25 APTT 35.2 SECONDS (24.3-36.9) 07/06/20 14:25 Sodium 133 mmol/L (136-145) L 07/07/20 05:25 Potassium 3.9 mmol/L (3.5-5.1) 07/07/20 05:25 BUN 66 mg/dL (7-18) H 07/07/20 05:25 Creatinine 2.04 mg/dL (0.55-1.3) H 07/07/20 05:25 Glucose 258 mg/dL (74-106) H 07/07/20 05:25 Magnesium 1.7 mg/dL (1.8-2.4) L 07/07/20 05:25 Total Bilirubin 0.3 mg/dL (0.2-1.0) 07/06/20 14:25 AST 10 U/L (15-37) L 07/06/20 14:25 ALT 16 U/L (12-78) 07/06/20 14:25 Alkaline Phosphatase 89 U/L (45-117) 07/06/20 14:25 Amylase 34 U/L (25-115) 07/06/20 14:25 Lipase 100 U/L (73-393) 07/06/20 14:25 Home Medications: Atorvastatin Calcium 40 mg PO BEDTIME 12/03/19 Hydroxyzine HCl [Atarax] 25 mg PO BID 12/03/19 Levothyroxine Sodium [Synthroid] 50 mcg PO DAILY 12/03/19 Metolazone [Zaroxolyn] 10 mg PO DAILY 12/03/19 Metoprolol Tartrate 25 mg PO BEDTIME 12/03/19 Pantoprazole [Protonix Tab*] 40 mg PO DAILY 12/03/19 Spironolactone 25 mg PO DAILY 12/03/19 Tamsulosin [Flomax*] 1 tab PO BID 12/03/19 glipiZIDE [Glipizide] 5 mg PO BID 12/03/19 allopurinoL [Zyloprim*] 100 mg PO DAILY 07/06/20 Furosemide [Lasix] 1.5 pill PO BID #90 tablet 07/07/20 levoFLOXacin [Levaquin] 250 mg PO DAILY #7 tab 07/07/20 New Medications: Furosemide [Lasix] 1.5 pill PO BID #90 tablet levoFLOXacin [Levaquin] 250 mg PO DAILY #7 tab Patient Discharge Instructions: 1. Recommend follow up with PCP in 1 week to follow up this hospitalization. 2. Patient presented with right lower extremity swelling, erythema. Patient with multiple medical problems including diabetes, chronic diastolic CHF, chronic atrial fibrillation, hypertension, hyperlipidemia and hypothyroidism. Patient was found to have right lower extremity cellulitis with lymphedema. The patient was admitted for further evaluation and treatment. His condition improved. Case discussed in detail with nephrology. Patient required increase diuresis. Patient taught on fluid restriction. At discharge patient will continue with a 1200 cc per day fluid restriction and low-salt diet. Recommend to monitor his weight daily. If his weight increases by more than 5 lb he is to contact nephrology for further recommendation. At discharge, nephrology recommends to increase Lasix 120 mg 3 times a day. The patient will continue with his other diuretic therapy including metolazone 10 mg daily and Aldactone 25 mg daily. The patient will continue with Levaquin 250 mg daily for 7 days. Recommend to elevate leg when sitting or lying. Recommend to monitor his swelling closely. Recommend follow up with nephrology within 1 week. Recommend to recheck lab-BMP at that time. Further adjustment in medication may be required. This can be done with the help of Nephrology. 3. Patient had reported right hip pain. This has been acute on chronic. Patient with history of hip surgery in 2019. Physical therapy noted he had pain on evaluation. X-ray was done. Ununited fracture of the femoral neck was noted. Orthopedics was consulted. Orthopedics recommend that he see subspecialist in [place] for possible revision. Fall precautions in place. 4. Patient with diabetes mellitus type 2 with hyperglycemia. His A1c in January was 6.8. Will continue with glimepiride 5 mg 1 pill twice daily. Recommend to maintain blood sugars less 140 fasting and less than 200 after meals. If blood sugars remain elevated additional medication may be required. This can be done with the help of his PCP. 5. Patient with chronic diastolic CHF. As mentioned above diuretic therapy was adjusted. At discharge he will continue with fluid restriction as above. Patient will continue with increased dose of Lasix 120 mg 3 times a day. The patient will continue with his other diuretic therapy including metolazone 10 mg daily and Aldactone 25 mg daily. 6. Patient with hypertension and chronic atrial fibrillation not on chronic anti coagulation therapy. This has remained stable. Patient will continue with Toprol-XL 25 mg daily. Recommend to maintain blood pressure less 150/80. Further adjustment can be done by his PCP. 7. Patient with hyperlipidemia. At discharge he will continue with Lipitor 40 mg daily. 8. Patient with BPH. At discharge patient will continue with Flomax 0.4 mg daily. 9. Patient with history of gout. At discharge he will continue with allopurinol 100 mg daily. 10. Patient with hypothyroidism. At discharge patient will continue with levothyroxine 50 mcg daily. 11. Patient with GERD. At discharge he will continue with Protonix 40 mg daily. Diet: ADA Activity: Fall precautions Time spent managing pt's care (in minutes): 55
--- NOTE | 2020-07-07 14:39 | CON ---
Date of Consultation: 07/07/2020 Reason For Consultation: Elevated BUN and creatinine, anasarca. 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 Humphries in September 70% with pulmonary hypertension and diastolic dysfunction, the patient came to the office yesterday with difficulty ambulating. The patient failed on switching from Lasix to Bumex, continued to gain weight. For that reason, he went back to the Lasix, but he continued to gain weight, started having shortness of breath. The patient started to have difficulty ambulating. Upon arrival to the office, the patient on a wheelchair with anasarca. For that reason, we referred the patient to the hospital. Upon arrival to the hospital, the patient was started on diuresis and antibiotic. Erythema of the lower extremity improved. Past Medical History: Includes; 1. Hypertension. 2. Pulmonary hypertension. 3. Diabetes complicated with neuropathy and nephropathy. 4. Coronary artery disease complicated with congestive heart failure, diastolic dysfunction. 5. 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 Allergies: NO KNOWN DRUGS ALLERGY. Family History: Positive for hypertension. Social History: Lives with family. Denied smoking. Denied drinking. Denied drugs abuse. Home Medications: Include; 1. Spironolactone. 2. Lasix 80 mg 3 times a day. 3. Atorvastatin. 4. Levothyroxine. 5. Metoprolol. 6. Pantoprazole. 7. Allopurinol. 8. Glipizide. Current Medications: In the hospital include metolazone 10 mg daily, levothyroxine, insulin, hydrocodone, cefepime, vancomycin, Lasix 80 t.i.d., allopurinol. Review of Systems: Head and Neck: No red eye. No ear pain. GI: No nausea. No vomiting. : No polyuria. No dysuria. No hematuria. Decreased urine output. 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 Respiratory: Has shortness of breath. Cardiovascular: Has leg swelling. Endocrine: No polydipsia. Skin: No rash. Neuro: Has neuropathy. Musculoskeletal: Has pain in both legs, difficulty ambulating. Physical Examination: Vital Signs: Blood pressure 123/60, pulse of 95. Chest: Crackles bilateral base. Heart: S1, S2. Systolic murmur. Abdomen: Soft, nontender. Extremities: Erythema of both lower extremities, +2 edema. Neurological: Alert and oriented x3. Laboratory Data: WBC 8.8, H and H 11.4/34, platelet 188. Sodium 133, potassium 3.9, bicarb 31, BUN 66, creatinine of 2, calcium 8.8, magnesium 1.7. Assessment And Plan: 1. Acute kidney injury on chronic kidney disease, over volume, secondary to cardiorenal. I am going to go ahead and increase Lasix to 120 mg t.i.d. The patient had negative balance. The patient will be cleared from the Renal standpoint for discharge planning if cleared by Ortho. 2. Hypertension. We will utilize blood pressure for more diuresis. 3. Hypomagnesemia. We will supplement. 4. Congestive heart failure with exacerbation. Continue diuresis. 5. Cellulitis of both lower extremities. We will start Levaquin upon discharge. Continue current antibiotic for the time being. 6. Hip pain, status post surgery for. We will follow up with Orthopedic. Time spent Corordent the care discussing the case with the patient Family member (face to face) and staff member / other resourcing consultant and placing order 65 min SHARON Voice ID: [id number] Report ID: [id number] ANN
[2020-07-07] MEDS ORDERED: FUROSEMIDE 40 MG/4 ML VIAL IV SCH (17:00)
[2020-07-07 17:17] VITALS: BP 147/65; TEMP 97
--- NOTE | 2020-07-08 00:15 | CON ---
Date of Consultation: 07/07/2020 Reason For Consultation: Right hip pain. History Of Present Illness: Mr. Soto is an 84-year-old male who was brought into the ER for lower extremity cellulitis. He was admitted to the floor for observation and started on antibiotics. I was consulted given the patient has a past history of right hip fracture that was treated by Dr. Castañeda with a cephalomedullary device. 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 The patient reported pain with ambulation at this time and has been recently worsening. Review of Systems: As above, otherwise negative. Past Medical History: Hypertension, diabetes, hyperlipidemia, atrial fibrillation, diastolic heart failure, hypothyroidism, and chronic renal disease. Past Surgical History: Right hip surgery, bilateral wrist surgeries. Medications: Atorvastatin, furosemide, hydroxyzine, levothyroxine, metolazone, metoprolol, Protonix, potassium, spironolactone, Flomax, glipizide. Allergies: NO KNOWN DRUG ALLERGIES. Social History: Denies tobacco or alcohol use. Lives at home. Physical Examination: General: No apparent distress. HEENT: Normocephalic, atraumatic. Neck: Supple. Cardiovascular: Brisk cap refill to all digits. Chest: Nonlabored breathing. Abdomen: Nondistended. Psychiatric: Responsive to exam. Musculoskeletal: The patient has cellulitis of both lower extremities from just below the knee to the ankle region with swelling and erythema. No signs of skin breakdown. No fluctuance noted. Incision of the right hip margin demonstrates no erythema or significant swelling. Some pain with flexion of the right hip. Neurovascularly intact distally. 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 There is superior migration of the lag screw and antirotation screw in the superior aspect of the femoral head, which is different from a change from his postoperative films in 2018. A significant osteopenia also noted of the proximal femur. Assessment And Plan: Mr. 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 I discussed with the patient at length his diagnosis. With this current bout of cellulitis, I recommend he complete treatment for that until it resolves. I also recommend he will be touchdown weightbearing on the right lower extremity to prevent complete failure of the hardware and collapse at the fracture site. As the cellulitis improves and resolves, I recommended a followup by a hip reconstruction specialist for likely removal of hardware and hip arthroplasty. The patient and his family member expressed understanding and will follow up with a reconstruction surgeon in [place] after discharge. They may call in clinic for any questions or concerns prior to his followup. SORAYA/SUSHANT Voice ID: [id number] Report ID: [id number] ANN
[2020-07-08] MEDS ORDERED: VANCOMYCIN 2 GM in NA CHLORIDE 0.9% 500 ML IVPB SCH (09:00)
== END 2020-07-07 17:57 | disposition home or self-care (01) ==
LOC: ER 13:52 → 2ND 17:16
PROVIDERS: ADMIT Family Medicine; ATTEND Family Medicine
DX: L03.115 Cellulitis of right lower limb (principal); I89.0 Lymphedema, not elsewhere classified; M25.551 Pain in right hip; S72.001K Fracture of unspecified part of neck of right femur, subsequent encounter for closed fracture with nonunion; E11.65 Type 2 diabetes mellitus with hyperglycemia; Z20.828 Contact with and (suspected) exposure to other viral communicable diseases; Z79.4 Long term (current) use of insulin; K21.9 Gastro-esophageal reflux disease without esophagitis; N17.9 Acute kidney failure, unspecified; I13.0 Hypertensive heart and chronic kidney disease with heart failure and stage 1 through stage 4 chronic kidney disease, or unspecified chronic kidney disease; N18.30 Chronic kidney disease, stage 3 unspecified; I50.32 Chronic diastolic (congestive) heart failure; I48.20 Chronic atrial fibrillation, unspecified; E78.5 Hyperlipidemia, unspecified; N40.0 Benign prostatic hyperplasia without lower urinary tract symptoms; M10.9 Gout, unspecified; E03.9 Hypothyroidism, unspecified; E66.9 Obesity, unspecified; Z68.37 Body mass index [BMI] 37.0-37.9, adult; E11.22 Type 2 diabetes mellitus with diabetic chronic kidney disease; I27.20 Pulmonary hypertension, unspecified; E11.40 Type 2 diabetes mellitus with diabetic neuropathy, unspecified; E83.42 Hypomagnesemia; L03.116 Cellulitis of left lower limb; R94.31 Abnormal electrocardiogram [ECG] [EKG]; G47.33 Obstructive sleep apnea (adult) (pediatric)
CPT/HCPCS: 96365; 93005; 87040 ×2; 87088; 85025 ×2; 87086; 80048 ×2; 36415; 82150; 83735; 82550; 85610; 82947 ×4; 80076; 83605; 85730; 84443; 82553; 84439; 83690; 84145; 73502; 73562; 93971; 97110; 97116; 97161; 97530; 96375; 99285; U0002; J1940 ×4; J1644 ×2; J3370; J3475 ×2; J0696; J0692; J7040; G0378 ×3; 81003; 81015; J1815

== ENCOUNTER 2020-09-01 17:12 | Inpatient (IN) | payer OTHER ==
--- OUTSIDE RECORDS SUMMARY | 2020-09-01 17:14 | XMS REPORT | Continuity of Care Document ---
:1935 Author Organization [facility] t Address [address] [place] [address] Care Team Providers Name Role Phone Cr Mckenzie MD Primary Care Physician Juan RASHID Attending Clinician SIMÓN Attending Clinician Unavailable Tim IYER Attending Clinician Unavailable SIMÓN Admitting Clinician Unavailable Tim IYER Admitting Clinician Unavailable Problems Condition Condition Condition Status Onset Resolution Last Treating Co mments Source Name Details Category Date Date Treatment Clinician Date Pain, Pain, Diagnosis Active [facility] - [facility], knee, Memoria right right l Outpati ent Clinics Right Right Diagnosis Active [facility] s[facility]ided [facility] - sciatica sciatica [facility] a l [facility] Clinics Allergies, Adverse Reactions, Alerts This patient has no known allergies or adverse reactions. Social History Social Habit Start Date Stop Date Quantity Comments Source Sex Assigned At [facility] Tobacco use and 2017-10-18 2017-10-18 Never used [facility] - exposure 00:00:00 00:00:00 [facility] Alcohol intake 2017-10-18 2017-10-18 Current [facility] es - 00:00:00 00:00:00 non-drinker of Medical nter alcohol (finding) History of 1988-09-23 Current smoker [facility] - tobacco use 00:00:00 Medical Daina padilla Smoking Status Start Date Stop Date Source Former smoker 2017-10-18 00:00:00 2017-10-18 00:00:00 [facility] Medications Ordered Filled Start Stop Current Ordering Indication Dosage Frequency Signature Comments Components Source Medication Medication Date Date Medication? Clinician (SIG) Name Name HydrALAZINE HydrALAZINE Yes Michael [address] [facility] HCl HCl 04-30 [place] with food [facility] - 00:00: Memoria 00 l Outpati ent Clinics acetaminoph Yes Take by [facility] en 500 mg 1-24 mouth. [facility] - coapsule 16:15: Medical [address] [place] brimonidine Yes [facility] (ALPHAGAN 1-24 [facility] - P) 0.1 % 16:15: Medical Drop [address] [place] ascorbic Yes 1000mg QD Take 1,[address] acid, 1-24 mg by [facility] - vitamin C, 16:15: mouth Medica l (VITAMIN C) 53 daily. [place] 1000 MG tablet atorvastati Yes 40mg QD Take [address] [address] n (LIPITOR) 1-24 by mouth Luke s - 40 MG 16:15: daily. Medical tablet [place] B-complex Yes 1{tbl} QD Take [address] with 1-24 tablet by [facility] - vitamin C 16:15: mouth Medical tablet 53 daily. [place] lactobacill Yes 1{capsu QD Take [address] us 1-24 le} capsule by [facility] - rhamnosus, 16:15: mouth Medica l GG, 53 daily. [place] ([facility] ) 10 billion cell capsule carvedilol Yes 12.5mg Take 12.[address] (COREG) 1-24 mg by [facility] - 12.5 MG 16:15: mouth 2 Medical tablet 53 (two) Center times daily with breakfast and dinner. cholecalcif Yes 1000U QD Take 1,[address] brenda, 1-24 Units by [facility] - vitamin D3, 16:15: mouth Medic al 1,000 unit 53 daily. [place] capsule coconut Yes by [facility] oil, bulk, 1-24 Miscellane Jose es - (COCONUT) 16:15: ous route. Me dical Oil [place] cranberry Yes Take by [facility] t 500 mg Cap 1-24 mouth. [facility] - 16:15: Medical [place] cyanocobala 2018-0 Yes 1000ug QD Take 1,[address] min 1-24 mcg by [facility] - (VITAMIN 16:15: mouth Medical B-12) 1000 53 daily. Center MCG tablet diflupredna 2017- Yes Apply to I St te 1-24 eye(s). [facility] - (DUREZOL) 16:15: Medical 0.05 % Drop 53 Center diphenhydrA 0 Yes 25mg Take [address] [address] MINE 1-24 by mouth [facility] - (BENADRYL) 16:15: every 6 Medi ame 25 mg 53 (six) Center capsule hours as needed for Itching. ferrous 2018-0 Yes 325mg Take 325 [facility] sulfate 325 1-24 mg by [facility] - (65 FE) MG 16:15: mouth Medica l tablet 53 daily with Center breakfast. furosemide 2017-0 Yes 40mg Q.5D Take [address] (LASIX) 40 1-24 by mouth 2 Jose es - MG tablet 16:15: (two) Medical 53 times Center daily. gabapentin 2017-0 Yes 300mg [id number] Take [address] (NEURONTIN) 1-24 [id number] mg by L ukes - 300 MG 16:15: 3D mouth 3 Medical capsule 53 (three) Center times daily. GINSENG 2017-0 Yes Take by [facility] ORAL 1-24 mouth. [facility] - 16:15: Medical 53 Center SITagliptin 2017-0 Yes 100mg QD Take [address] (JANUVIA) 1-24 mg by [facility] - 100 MG 16:15: mouth Medical tablet 53 daily. Center insulin 2017-0 Yes QD Inject [facility] glargine 1-24 [...] 16:15: daily. Medical capsule 53 Center polycarboph 2018-0 Yes 625mg QD Take [address] il 1-24 mg by [facility] - (FIBERCON) 16:15: mouth Medica l 625 mg 53 daily. [place] tablet senna Yes 1{tbl} QD Take [address] (SENOKOT) 1-24 tablet by Lukes - 8.6 mg 16:15: mouth Medical tablet 53 daily. [place] telmisartan Yes 80mg QD Take [address] (MICARDIS) 1-24 by mouth [facility]ukes - 80 MG 16:15: daily. Medical tablet [place] polymyxin B Yes 1[drp] [address] sulf-trimet 1-24 [facility] - hoprim 16:15: Medical (POLYTRIM) [place] 10,000 unit- 1 mg/mL Drop thiamine Yes 100mg QD Take [address] 100 MG 1-24 mg by Lukes - tablet 16:15: mouth Medical 53 daily. [place] amiodarone Yes 200mg QD Take [address] (PACERONE) 1-24 mg by [facility]ukes - 200 MG 16:15: mouth Medical tablet 53 daily. [place] Januvia Januvia Yes Michael as [facility] Gomes [...] ne Sodium Gomes Auth: Rx Lukes - Ref#:[id number] Memoria [id number]) l [facility] Flomax Flomax Yes Michael [address] [facility] Gomes 30 minutes Lukes - after the Memoria same meal l each day [facility] Procedures This patient has no known procedures. Plan of Care Planned Activity Planned Date Details Comments Source Future Scheduled 2020-05-24 INFLUENZA VACCINE (#1) [facility] - Test 00:00:00 [code = INFLUENZA Medical Ce nter VACCINE (#1)] Future Scheduled 2003-10-[address] [facility] ukes - Test 00:00:00 WELLNESS (YEAR 2 or Medical Center FIRST YEAR if no IPPE) [code = MEDICARE ANNUAL WELLNESS (YEAR 2 or FIRST YEAR if no IPPE)] Future Scheduled 2002 PNEUMOCOCCAL 65+ YRS [facility] - Test 00:00:00 (1 of 1 - Medical Center [id number] PCV13) [code = PNEUMOCOCCAL 65+ YRS (1 of 1 - [id number] PCV13)] Encounters Start End Encounter Admission Attending Care Care Encounter Source Date/Time Date/Time Type Type Clinicians Facility Department ID 2020-08-11 2020-08-11 Telephone [facility], [facility] [id number] 00:00:00 00:00:00 [facility] [id number] [place] [id number] Professio [id number] nal 059 [facility] 2019-06-16 2019-06-16 Outpatient Gayatri GR [facility] [id number] [place] 15:18:00 23:59:00 ANTHONY [facility] 2018-04-30 2018-04-30 Outpatient [place] [id number] 13:30:00 13:30:00 [facility] - and [facility] Results Test Description Test Time Test Comments Results Result [facility] e Comments NM LUNG (V/Q ) 2019-06-16 Radionuclide SCAN 16:46:52 ventilation/perfusion lung scanLocation Code: [id number]: Shortness of breathCOMPARISON: NoneCOMMENT: Routine images of [...] Test Item Value Reference Range Interpretation Comme nts POC-GLUCOSE METER (ISHAAN) (test 157 mg/dL 70-110 H TESTED AT [facility] 7200 code = 1538) [facility] [id number]
--- OUTSIDE RECORDS SUMMARY | 2020-09-01 17:14 | XMS REPORT | Clinical Summary ---
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
--- OUTSIDE RECORDS SUMMARY | 2020-09-01 17:14 | XMS REPORT | Summary of Care ---
:1935 Author Organization [facility] Address [address] [place] [address] Care Team Providers Name Role Phone Pcp, Patient Does Not Have A Primary Care Provider +1-000-00 0-0000 Reason for Visit Reason Comments Surgery Clearance [facility] /Ortho Sx Clearanc e/Dr. Rodrigo Padilla Encounter Details Date Type Department Care Team Description 08/11/2020 Telephone [facility] Riley Martinez M D Surgery Clearance ([place] Cardiology- [address] /Ortho Sx [address] [place] [address], DRIVE Clearance/Dr. Wallace [facility] [address] [facility] [place], [place] [id number] Allergies Active Allergy Reactions Severity Noted Date Comments Iodine And Iodide Containing Other - See comments 08/23 Kidney issue Products documented as of this encounter (statuses as of 08/11/2020) Medications Medication Sig Dispensed Refills Start Date End Date Status Insulin [place], Use as directed, 100 Each 3 09/13/2015 Active Disposable, (PEN TID, DX:E11.40 NEEDLE) 31 X 5/16 " Ndle FREESTYLE LITE STRIPS 0 09/16/2016 Active strip omeprazole 20 mg TAKE ONE (1) 3 06/15/2017 Active capsule CAPSULE(S) BY MOUTH DAILY. ATORVASTATIN 40 mg TAKE 1 TABLET AT 90 tablet 1 03/07/2018 Active tabletIndications: BEDTIME Dyslipidemia carvedilol (COREG) 25 Take 25 mg by 0 Active mg tablet mouth 2 (two) times daily with meals. Levothyroxine 25 mcg Take by mouth. 0 Active capsule Insulin Glargine inject 20 Units 20 mL 1 07/29/2018 Active (LANTUS SOLOSTAR U-100 under the skin INSULIN) 100 unit/mL (3 daily. mL) injectionIndications: Type 2 diabetes mellitus with stage 3 chronic kidney disease, with long-term current use of insulin Additional Information Patient taking differently: (No dose reported), Subcutaneous DAILY, Inject 20 units in morning and 24 units at night, Reported on 01/28/2019 1:17 PM insulin aspart U-100 (NOVOLOG inject 10 Units under 30 mL 1 07/29/2018 Active FLEXPEN U-100 INSULIN) 100 unit/mL the skin 2 (two) times injectionIndications: Type 2 daily before breakfast diabetes mellitus with stage 3 and dinner. chronic kidney disease, with long-term current use of insulin Additional Information Patient taking differently: 20 Units Subcutaneous BIDAC, Reported on 01/28/2019 1:17 PM JANUVIA 50 mg tablet TAKE 1 TABLET DAILY 90 tablet 1 9 Active tamsulosin 0.4 mg 24 hr Take 1 capsule by mouth 90 capsule 3 0 04/02/2019 Active capsule daily. ethacrynic acid 25 mg Take 2 tablets by mouth 60 tablet 3 11/2018 Active tabletIndications: Chronic every morning and heart failure with preserved evening. ejection fraction GABAPENTIN 300 mg TAKE 1 CAPSULE AT 90 capsule 1 09/10/2019 Active capsuleIndications: BEDTIME Uncontrolled type 2 diabetes with neuropathy documented as of this encounter (statuses as of 08/11/2020) Active Problems Problem Noted Date BECKMAN (dyspnea on exertion) 07/09/2019 Acute on chronic diastolic CHF (congestive heart failu re), NYHA class 3 07/09/2019 Longstanding persistent atrial fibrillation 07/09/2019 Essential hypertension 07/09/2019 RAHEL (obstructive sleep apnea) 07/09/2019 CHF (congestive heart failure) 07/08/2019 Elevated TSH 05/08/2017 Type 2 diabetes mellitus with stage 3 chronic kidney d isease, with 01/30/2017 long-term current use of insulin CKD (chronic kidney disease) stage 3, GFR 30-59 ml/min 03/13/2016 Vitamin D deficiency 12/07/2015 HLD (hyperlipidemia) 12/07/2015 Uncontrolled type 2 diabetes with neuropathy 5 OTIS (acute kidney injury) 09/07/2015 Neuropathy 09/07/2015 documented as of this encounter (statuses as of 08/11/2020) Immunizations Name Administration Dates Next Due Influenza High Dose 07/12/2019 Pneumococcal 13 Conjugate, PCV13 (Prevnar 13) 07/27/2018 documented as of this encounter Social History Tobacco Use Types Packs/Day Years Used Date Former Smoker Smokeless Tobacco: Never Used Alcohol Use Drinks/Week oz/Week Comments No 0 Standard drinks or equivalent 0.0 Sex Assigned at Date Recorded Not on file documented as of this encounter Last Filed Vital Signs Not on filedocumented in this encounter Miscellaneous Notes Telephone Encounter - Oxana Ch MA - 08/11/2020 1:42 PM CSTLeft vm on patient cell . Needing call back to schedule follow up appointment. Been close to a year since last exam. Left vm on emergency contact as well to pass on same msg. Will [facility] clearance [facility] nurses station inbox til appointment made. 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 Plan of Treatment Health Maintenance Due Date Last Done Comments EYE EXAM 1945 URINE MICROALBUMIN 1945 DTaP,Tdap,and Td Vaccines (1 - 1956 Tdap) Zoster Recombinant Vaccine 1987 (SHINGRIX) (1 of 2) Medicare Wellness Visit 2002 PNEUMOCOCCAL VACCINES 65+ (2 of 2 07/27/2019 07/27/2018 - PPSV23) HgA1C 01/07/2020 07/08/2019, 01/28/2019, 07/29/2018, Additional history exists FOOT EXAM 01/29/2020 01/28/2019, 07/29/2018, 08/12/2017, Additional history exists INFLUENZA VACCINE (#1) 2020 07/12/2019 LDL-C 07/08/2020 07/08/2019, 09/07/2015 CREATININE (SERUM) 07/12/2020 07/12/2019, 07/11/2019, 07/10/2019, Additional history exists Depression Screening 08/25/2020 08/25/2019 documented as of this encounter Implants Implanted Type Area Insurance Specialist Device Identifier Shelf Exp iration Model / Date Serial / L ot Brabie BARBIE Right: Hip documented as of this encounter Results Not on filedocumented in this encounter Insurance Payer Benefit Plan Subscriber ID Effective Phone Address Typ e / Group Dates MEDICARE MEDICARE PART [id number] 2002-Prese [phone] [address] Medicare A & B nt [address] [id number] [place] [id number] FOR [id number] 2015-Pre Med icare LIFE sent Supplement documented as of this encounter
--- OUTSIDE RECORDS SUMMARY | 2020-09-01 17:15 | XMS REPORT | Summary of Care ---
:1935 Author Organization [facility] Address [address] [place] [address] Care Team Providers Name Role Phone Pcp, Patient Does Not Have A Primary Care Provider +1-000-00 0-0000 Reason for Visit Reason Comments Surgery Clearance [facility] /Ortho Sx Clearanc e/Dr. Rodrigo Padilla Encounter Details Date Type Department Care Team Description 08/11/2020 Telephone [facility] Riley Martinez M D Surgery Clearance ([place] Cardiology- [address] /Ortho Sx [address] [place] [address], DRIVE Clearance/Dr. Wallace [facility] [address] [facility] [place], [place] [id number] [phone] Allergies Active Allergy Reactions Severity Noted Date Comments Iodine And Iodide Containing Other - See comments 08/23 Kidney issue Products documented as of this encounter (statuses as of 08/15/2020) Medications Medication Sig Dispensed Refills Start Date End Date Status Insulin [place], Use as directed, 100 Each 3 09/13/2015 [...] as of this encounter (statuses as of 08/15/2020) Active Problems Problem Noted Date BECKMAN (dyspnea [...] as of this encounter (statuses as of 08/15/2020) Immunizations Name Administration Dates Next Due Influenza [...] this encounter Miscellaneous Notes Telephone Encounter - Oxaan Ch MA - 08/15/2020 4:41 PM CSTLeft vm on [employer] voicemail with Dr. Padilla office. To inform that office we left vm on last week to patient with no call back as of today. Will Need patient to call for follow up to complete theclearance needed. elephone Encounter - Oxana Ch MA - 08/11/2020 1:42 PM CSTLeft vm on patient cell . Needing call back to schedule follow up appointment. Been close to a year since last exam. Left vm on emergency contact as well to pass on same msg. Will keep clearance letterat [facility] nurses station inbox til appointment made. documented in this encounter Plan of Treatment [...] of this encounter Implants Implanted Type Area Hand Pattern Marker Device Identifier Shelf Exp iration Model / Date Serial / L ot Barbie BARBIE Right: Hip documented as of this encounter Results Not on filedocumented in this encounter Insurance Payer Benefit Plan Subscriber ID Effective Phone Address Typ e / Group Dates MEDICARE MEDICARE PART [id number] 2002-Prese [phone] [address] Medicare A & B nt 82 [id number] [place] [phone] FOR [id number] 2015-Pre Med icare LIFE sent Supplement documented as of this encounter
--- NOTE | 2020-09-01 17:54 | RAD REPORT ---
EXAM DESCRIPTION: RAD - Chest Single View - 09/01/2020 5:45 pm CLINICAL HISTORY: chf Chest pain. COMPARISON: Chest Single View dated 12/05/2019; Chest Single View dated 09/25/2019; Chest Single View d ated 09/24/2019; Chest Single View dated 09/23/2019 FINDINGS: Portable technique limits examination quality. Mild interstitial pulmonary edema is seen. The heart is moderately enlarged in size. Trace right pleu ral effusion. IMPRESSION: Mild CHF.
[2020-09-01 18:24] LABS: Absolute Lymphocytes (CBC) 1.3 K/uL (0.7-4.9); Basophils % 1.1 % (0-1.3); Hematocrit 35.7 % (39.6-49.0); Lymphocytes % 13.9 % (15.3-44.8); MPV 7.7 fL (7.6-11.3); Protime INR 1.06; RBC Red Blood Cell Count 4.12 M/uL (4.33-5.43)
[2020-09-01 18:42] LABS: ALT/SGPT 14 U/L (12-78); AST/SGOT 13 U/L (15-37); Albumin 3.7 g/dL (3.4-5.0); Alkaline Phosphatase 76 U/L (45-117); BUN Blood Urea Nitrogen 91 mg/dL (7-18); Bicarbonate 37 mmol/L (21-32); Bilirubin Direct < 0.1 mg/dL (0-0.2); Bilirubin Total 0.3 mg/dL (0.2-1.0); Glucose Level 162 mg/dL (74-106); Magnesium 2.6 mg/dL (1.8-2.4); NT PRO-BNP 1168 pg/mL (<450); Potassium 3.7 mmol/L (3.5-5.1); Protein, Total 8.6 g/dL (6.4-8.2); Sodium Level 135 mmol/L (136-145); Troponin (Emerg Dept Use Only) < 0.02 ng/mL (0.0-0.045)
--- NOTE | 2020-09-01 18:49 | EDPHYS ---
Physician Documentation [facility] Name: Jimmy Soto Age: 84 yrs Sex: Male : 1935 Arrival Date: 09/01/2020 Time: 17:15 Bed 8 Private MD: ED Physician Virgilio Gomez HPI: 09/01 18:48 This 84 yrs old Male presents to ER via Wheelchair with complaints of Fluid kdr Overload. 18:48 The patient was sent by Dr. Kincaid for fluid overload. The patient is on 120 mg Lasix kdr TID. He is making some urine but has had a 4# weight gain yesterday.. Onset: The symptoms/episode began/occurred gradually, at an unknown time. Severity of symptoms: At their worst the symptoms were moderate in the emergency department the symptoms are unchanged. The patient has experienced similar episodes in the past, multiple times, chronically. The patient has been recently seen by a physician: the patient's primary care provider. Historical: - Allergies: 17:32 No Known Allergies; aa5 - PMHx: 17:32 Cellulitis; CHF; COPD; Diabetes - IDDM; Hyperlipidemia; Hypertension; leg aa5 swelling/sores; Pneumonia; - PSHx: 17:32 cesar arms; R hip; aa5 - Immunization history:: Adult Immunizations unknown. - Social history:: Smoking status: Patient denies any tobacco usage or history of. ROS: 18:48 Constitutional: Negative for fever, chills, and weight loss, Eyes: Negative for injury, kdr pain, redness, and discharge, ENT: Negative for injury, pain, and discharge, Neck: Negative for injury, pain, and swelling, Cardiovascular: Negative for chest pain, palpitations, and edema, Back: Negative for injury and pain, : Negative for injury, bleeding, discharge, and swelling, Neuro: Negative for headache, weakness, numbness, tingling, and seizure activity. Psych: Negative for depression, anxiety, suicide ideation, homicidal ideation, and hallucinations, Allergy/Immunology: Negative for hives, rash, and allergies, Endocrine: Negative for neck swelling, polydipsia, polyuria, polyphagia, and marked weight changes, Hematologic/Lymphatic: Negative for swollen nodes, abnormal bleeding, and unusual bruising. 18:48 Respiratory: Positive for dyspnea on exertion, shortness of breath. Exam: 18:37 ECG was reviewed by the Attending Physician. kdr 18:48 Constitutional: This is a well developed, well nourished patient who is awake, alert, kdr and in no acute distress. Head/Face: Normocephalic, atraumatic. Eyes: Pupils equal round and reactive to light, extra-ocular motions intact. Lids and lashes normal. Conjunctiva and sclera are non-icteric and not injected. Cornea within normal limits. Periorbital areas with no swelling, redness, or edema. Neck: Trachea midline, no thyromegaly or masses palpated, and no cervical lymphadenopathy. Supple, full range of motion without nuchal rigidity, or vertebral point tenderness. No Meningismus. Chest/axilla: Normal chest wall appearance and motion. Nontender with no deformity. No lesions are appreciated. Cardiovascular: Regular rate and rhythm with a normal S1 and S2. No gallops, murmurs, or rubs. Normal PMI, no JVD. No pulse deficits. Abdomen/GI: Soft, non-tender, with normal bowel sounds. No distension or tympany. No guarding or rebound. No evidence of tenderness throughout. Back: No spinal tenderness. No costovertebral tenderness. Full range of motion. Neuro: Awake and alert, GCS 15, oriented to person, place, time, and situation. Cranial nerves II-XII grossly intact. Motor strength 5/5 in all extremities. Sensory grossly intact. Cerebellar exam normal. Normal gait. Psych: Awake, alert, with orientation to person, place and time. Behavior, mood, and affect are within normal limits. 18:48 Respiratory: the patient does not display signs of respiratory distress, Respirations: normal, Breath sounds: rales, that are mild, are located in both bases. 18:48 Abdomen/GI: Inspection: obese Bowel sounds: normal, Palpation: soft. 18:48 Musculoskeletal/extremity: Extremities: swelling, weeping below the knees on both legs. Vital Signs: 17:22 BP 151 / 70; Pulse 84; Resp 24 S; Temp 98.2(O); Pulse Ox 93% on R/A; Weight 112.04 kg aa5 (R); Height 5 ft. 7 in. (170.18 cm) (R); Pain 4/10; 18:15 BP 123 / 64; Pulse 67; Resp 12; Pulse Ox 96% on 2 lpm NC; vg1 19:13 BP 137 / 69; Pulse 65; Resp 18; Pulse Ox 99% on 2 lpm NC; wh 20:24 BP 131 / 67; Pulse 81; Resp 16; Pulse Ox 98% on 2 lpm NC; 17:22 Body Mass Index 38.69 (112.04 kg, 170.18 cm) aa5 MDM: 18:48 Patient medically screened. kdr 18:48 Data reviewed: vital signs, nurses notes, lab test result(s), radiologic studies. kdr Counseling: I had a detailed discussion with the patient and/or guardian regarding: the historical points, exam findings, and any diagnostic results supporting the discharge/admit diagnosis, lab results, radiology results, the need for further work-up and treatment in the hospital. 09/01 17:26 Order name: Basic Metabolic Panel; Complete Time: 19:20 kdr 09/01 17:26 Order name: CBC with Diff; Complete Time: 18:37 kdr 09/01 17:26 Order name: LFT's; Complete Time: 19:20 kdr 09/01 17:26 Order name: Magnesium; Complete Time: 19:20 kdr 09/01 17:26 Order name: NT PRO-BNP; Complete Time: 19:20 kdr 09/01 17:26 Order name: PT-INR; Complete Time: 18:37 kdr 09/01 17:26 Order name: Troponin (emerg Dept Use Only); Complete Time: 19:20 kdr 09/01 17:26 Order name: XRAY Chest (1 view); Complete Time: 18:29 kdr 09/01 19:10 Order name: COVID-19 09/01 19:27 Order name: Urine Microscopic Only rr5 09/01 19:39 Order name: Urine Dipstick--Ancillary (enter results) 09/01 19:45 Order name: Urine Dipstick-Ancillary EDSC 09/01 20:20 Order name: SARS-COV-2 RT PCR EDMS 09/01 17:26 Order name: EKG; Complete Time: 17:28 kdr 09/01 17:26 Order name: Cardiac monitoring; Complete Time: 18:09 kdr 09/01 17:26 Order name: EKG - Nurse/Tech; Complete Time: 18:09 kdr 09/01 17:26 Order name: IV Saline Lock; Complete Time: 18:09 kdr 09/01 17:26 Order name: Labs collected and sent; Complete Time: 18: kdr 09/01 17:26 Order name: O2 Per Protocol; Complete Time: 18: kdr 09/01 17:26 Order name: O2 Sat Monitoring; Complete Time: 18: kdr 09/01 19:22 Order name: Nieves; Complete Time: 19:26 la1 EC:37 Rate is 73 beats/min. Rhythm is regular, Normal Sinus Rhythm with No ectopy. QRS [place] kdr is Normal. [place] interval is normal. QRS interval is normal. QT interval is normal. No Q waves. Clinical impression: NSR w/ Non-specific ST/T Changes. Administered Medications: 19:36 Drug: Lasix 20 mg Route: IVP; Site: right antecubital; 20:28 Follow up: Response: No adverse reaction Disposition: 09/01/20 18:48 Hospitalization ordered by Yash Leos for Observation. Preliminary diagnosis is Congestive Heart Failure - mild. - Bed requested for Telemetry/MedSurg (observation). - Status is Observation. - Condition is Fair. - Problem is an acute exacerbation. - Symptoms have improved. Signatures: Dispatcher [employer] EDMS Nereida Gallo RN RN kl Rittger, Kevin, MD MD [facility] Nicolette Almanzar RN RN aa5 Flex Hathaway, NETBACKUP ADMINISTRATOR-C NETBACKUP ADMINISTRATOR-Cla1 Ralph Pacheco Corrections: (The following items were deleted from the chart) 20:10 18:48 Hospitalization Ordered by Yash Leos MD for Observation. Preliminary diagnosis is Congestive Heart Failure - mild. Bed requested for Telemetry/MedSurg (observation). Status is Observation. Condition is Fair. Problem is an acute exacerbation. Symptoms have improved. kdr 20:34 20:10 09/01/2020 18:48 Hospitalization Ordered by Yash Leos MD for Observation. Preliminary diagnosis is Congestive Heart Failure - mild. Bed requested for Telemetry/MedSurg (observation). Status is Observation. Condition is Fair. Problem is an acute exacerbation. Symptoms have improved.
--- NOTE | 2020-09-01 18:49 | ER ---
Nurse's Notes [facility] Name: Jimmy Soto Age: 84 yrs Sex: Male : 1935 Arrival Date: 09/01/2020 Time: 17:15 Bed 8 Private MD: Diagnosis: Congestive Heart Failure - mild Presentation: 09/01 17:22 Chief complaint: Patient states: weight gain of 4lbs over 3 days, pt reports his normal aa5 weight is between 235-240lbs, pt reports he takes Lasix 120mg TID at home and reports increased leg swelling. Pt also reports SOB. 17:22 Coronavirus screen: Client denies travel out of the [place] in the last 14 days. At this aa5 time, the client does not indicate any symptoms associated with coronavirus-19. Ebola Screen: Patient negative for fever greater than or equal to 101.5 degrees Fahrenheit, and additional compatible Ebola Virus Disease symptoms. Initial Sepsis Screen: Does the patient meet any 2 criteria? No. Patient's initial sepsis screen is negative. Does the patient have a suspected source of infection? No. Patient's initial sepsis screen is negative. Risk Assessment: Do you want to hurt yourself or someone else? Patient reports no desire to harm self or others. Onset of symptoms was September 01, 2020. 17:22 Acuity: ART 3 aa5 17:22 Method Of Arrival: Wheelchair aa5 Historical: - Allergies: 17:32 No Known Allergies; aa5 - PMHx: 17:32 Cellulitis; CHF; COPD; Diabetes - IDDM; Hyperlipidemia; Hypertension; leg aa5 swelling/sores; Pneumonia; - PSHx: 17:32 kenan arms; R hip; aa5 - Immunization history:: Adult Immunizations unknown. - Social history:: Smoking status: Patient denies any tobacco usage or history of. Screenin:10 Abuse screen: Denies threats or abuse. Denies injuries from another. Nutritional wh screening: No deficits noted. Tuberculosis screening: No symptoms or risk factors identified. Fall Risk None identified. Assessment: 17:25 General: Appears in no apparent distress. comfortable, Behavior is calm, cooperative. vg1 Pain: Complains of pain in Right hip and right knee Pain currently is 4 out of 10 on a pain scale. Neuro: Level of Consciousness is awake, alert, obeys commands, Oriented to person, place, time. Cardiovascular: Patient's skin is warm and dry. Cardiovascular: Edema non pitting, in lower KENAN extremities. Respiratory: Airway is patent Respiratory effort is even, unlabored, Respiratory pattern is regular, symmetrical. GI: Abdomen is distended. : No signs and/or symptoms were reported regarding the genitourinary system. EENT: No signs and/or symptoms were reported regarding the EENT system. Derm: Skin is. Derm: Skin is pink, warm \T\ dry. Musculoskeletal: Range of motion: intact in all extremities. 17:25 General: Reports gained about four pounds in three days. vg1 19:10 General: Appears in no apparent distress. Behavior is calm, cooperative, appropriate wh for age. Pain: Complains of pain in right hip and right knee. Neuro: Level of Consciousness is awake, alert, obeys commands, Oriented to person, place, time, situation, Appropriate for age. Cardiovascular: Heart tones S1 S2 Edema non pitting in BLE. Respiratory: Airway is patent Respiratory effort is even, unlabored, Respiratory pattern is regular, symmetrical, Breath sounds are diminished Breath sounds with rales. GI: Abdomen is distended. : No signs and/or symptoms were reported regarding the genitourinary system. EENT: No signs and/or symptoms were reported regarding the EENT system. Derm: Skin is intact, Skin is pink, warm \T\ dry. Musculoskeletal: Circulation, motion, and sensation intact. 20:25 Reassessment: Patient appears in no apparent distress at this time. No changes from previously documented assessment. Patient and/or family updated on plan of care and expected duration. Pain level reassessed. Patient is alert, oriented x 3, equal unlabored respirations, skin warm/dry/pink. Vital Signs: 17:22 BP 151 / 70; Pulse 84; Resp 24 S; Temp 98.2(O); Pulse Ox 93% on R/A; Weight 112.04 kg aa5 (R); Height 5 ft. 7 in. (170.18 cm) (R); Pain 4/10; 18:15 BP 123 / 64; Pulse 67; Resp 12; Pulse Ox 96% on 2 lpm NC; vg1 19:13 BP 137 / 69; Pulse 65; Resp 18; Pulse Ox 99% on 2 lpm NC; wh 20:24 BP 131 / 67; Pulse 81; Resp 16; Pulse Ox 98% on 2 lpm NC; wh 17:22 Body Mass Index 38.69 (112.04 kg, 170.18 cm) aa5 ED Course: 17:15 Patient arrived in ED. rg4 17:17 Virgilio Gomez MD is Attending Physician. kdr 17:22 Arm band placed on Patient placed in an exam room, on a stretcher. aa5 17:24 Ángela Drake, RN is Primary Nurse. vg1 17:32 Triage completed. aa5 17:45 XRAY Chest (1 view) In Process Unspecified. EDMS 17:55 Oxygen administration via nasal cannula \T\ 2L/min. vg1 18:03 Initial lab(s) drawn, by me, sent to lab. Inserted saline lock: 20 gauge in right vg1 antecubital area, using aseptic technique. Blood collected. 18:47 Yash Leos MD is Hospitalizing Provider. kdr 19:10 Patient has correct armband on for positive identification. Placed in gown. Bed in low wh position. Call light in reach. Side rails up X 1. monitor tech on. Pulse ox on. NIBP on. 19:15 Primary Nurse role handed off by Ángela Drake, RN mw2 19:26 Pickett cath inserted, using sterile technique, 16 Fr., by il, balloon inflated, to rr5 gravity drainage, urine specimen collected. 19:31 Ralph Pacheco is Primary Nurse. 20:27 No provider procedures requiring assistance completed. Patient admitted, IV remains in place. Administered Medications: 19:36 Drug: Lasix 20 mg Route: IVP; Site: right antecubital; wh 20:28 Follow up: Response: No adverse reaction Outcome: 18:48 Decision to Hospitalize by Provider. kdr 20:27 Admitted to Med/surg accompanied by tech, via stretcher, room 210, with oxygen, with chart, Report called to Lachelle Escalera RN 20:27 Condition: stable 20:27 Instructed on the need for admit. 20:34 Patient left the ED. Signatures: Dispatcher [employer] EDMS Virgilio Gomez MD MD kdr Nicolette Almanzar RN RN aa5 Kristy Drake 4 Ralph Pacheco Tri Soriano mw2 Yash Cunha, RN RN rr5 Ángela Drake RN RN vg1 Corrections: (The following items were deleted from the chart) : 19:10 Cardiovascular: Heart tones S1 S2 [facility] : 19:10 Respiratory: Airway is patent Respiratory effort is even, unlabored, Respiratory wh pattern is regular, symmetrical, Breath sounds are diminished : 19:12 Cardiovascular: Edema non pitting in BLE [facility] : 19:10 Cardiovascular: Edema non pitting in [facility]
[2020-09-01] MEDS: FUROSEMIDE 100 MG in NA CHLORIDE 0.9% 90 ML IV SCH (19:30)
[2020-09-01] MEDS ORDERED: NA CHLORIDE 0.9% 100 ML ONE (19:41)
[2020-09-01] MEDS ORDERED: FUROSEMIDE 100 MG/10 ML VIAL IV ONE (19:42)
[2020-09-01 19:44] LABS: Urine Bacteria NONE SEEN /HPF (NONE SEEN)
[2020-09-01 19:45] LABS: Urine Blood 2+ (NEG); Urine Glucose NEGATIVE (NEG); Urine Protein TRACE (NEG); Urine pH 7.5 (5.0-7.0)
--- NOTE | 2020-09-01 19:52 | P.HP ---
Certification for Inpatient Patient admitted to: Inpatient With expected LOS: >2 Midnights Patient will require the following post-hospital care: None Practitioner: I am a practitioner with admitting privileges, knowledge of patient current condition, hospital course, and medical plan of care. Services: Services provided to patient in accordance with Admission requirements found in Title 42 Section 412.3 of the Code of Federal Regulations <Flex Hathaway - Last Filed: 09/01/20 19:45> Patient History Date of Service: 09/01/20 Primary Care Provider: Dr. Mckenzie, Dr. Kincaid Reason for admission: CHF exacerbation History of Present Illness: 84-year-old male with history of chronic diastolic congestive heart failure, diabetes mellitus type 2 insulin-dependent, chronic kidney disease, chronic atrial fibrillation on chronic anticoagulation therapy, hypertension, hyperlipidemia, hypothyroidism, gout, GERD presents the emergency department for swelling and shortness of breath. Patient reports that he sees Dr. Kincaid and called him due to recent weight gain and swelling and was informed that he needed to come to the hospital for further evaluation and management. Patient currently taking Lasix 120 mg t.i.d. in addition to metolazone 10 mg daily in the morning, patient still gained approximately 7 lb over the course of the last couple of days, increased abdominal distension, increased pedal edema, increased shortness of breath now with oxygen requirement. Case discussed with nep hrology, patient will require Lasix drip for inpatient diuresis. Labs not significantly different from baseline, chest x-ray shows CHF. Patient be admitted for further evaluation and management. - Past Medical/Surgical History Diabetic: Yes -: HTN -: Hyperlipidemia -: Diabetes mellitus type 2 insulin-dependent -: History of asbestosis -: MRSA foot w/ cellulitis -: Obstructive sleep apnea -: Chronic atrial fibrillation not on chronic anti coagulation -: Diastolic CHF -: Chronic lymphedema -: Hypothyroidism -: Chronic renal disease stage III -: Bilateral wrist sx (f[place] off [place] and broke both wrist) -: cataract sx -: Right hip sx r/t fx Psychosocial/ Personal History: Patient lives at home by himself but has caregiver coming throughout the week. - Family History Mother Notes: denies having family history of illness Father Notes: denies having family history of illness Sister Notes: denies having family history of illness Brother Notes: denies having family history of illness - Social History Smoking Status: Never smoker Alcohol use: No CD- Drugs: No Caffeine use: Yes Place of Residence: Home <Flex Hathaway - Last Filed: 09/01/20 19:45> Date of Service: 09/01/20 <LeosYash - Last Filed: 09/07/20 13:56> Allergies No Known Allergies Allergy (Verified 01/19/18 04:44) Home Medications: Allopurinol 100 mg PO DAILY 09/01/20 Pantoprazole [Protonix Tab*] 40 mg PO DAILY 09/01/20 Tamsulosin [Flomax*] 1 tab PO BID 09/01/20 Amiodarone HCl [Cordarone*] 200 mg PO DAILY #30 tab 09/06/20 Furosemide [Lasix*] 100 mg PO TID #226 tab 09/06/20 Insulin Glargine Human [Lantus*] 35 units SQ BEDTIME #10 ml 09/06/20 Melatonin 10 mg PO BEDTIME PRN PRN #30 tablet 09/06/20 Potassium Oral Tab [Klor-Con 10 mEq Tab*] 40 meq PO DAILY #120 tab 09/06/20 metOLazone [Zaroxolyn*] 5 mg PO DAILY #30 tab 09/06/20 Review of Systems 10-point ROS is otherwise unremarkable Respiratory: Shortness of Breath Cardiovascular: Edema <Flex Hathaway - Last Filed: 09/01/20 19:45> Physical Examination - Physical Exam General: Alert, In no apparent distress, Oriented x3 HEENT: Atraumatic, Normocephalic, PERRLA Neck: Supple Respiratory: Diminished (Bilaterally) Cardiovascular: Edema (Abdomen appears mildly distended, edema to lower extremities.) Capillary refill: <2 Seconds Gastrointestinal: Normal bowel sounds, No tenderness, No masses, No rebound, No guarding Musculoskeletal: No contractures, No erythema, No tenderness Integumentary: No tenderness/swelling, No erythema, No warmth Neurological: Normal speech, Normal strength at 5/5 x4 extr, Normal tone, Sensation intact - Studies Laboratory Data (last 24 hrs) 09/01/20 18:03: PT 12.5, INR 1.06 09/01/20 18:03: WBC 9.0, Hgb 11.8 L, Hct 35.7 L, Plt Count 192 09/01/20 18:03: Sodium 135 L, Potassium 3.7, BUN 91 H, Creatinine 2.53 H, Glucose 162 H, Magnesium 2.6 H D, Total Bilirubin 0.3, AST 13 L, ALT 14, Alkaline Phosphatase 76 <Flex Hathaway - Last Filed: 09/01/20 19:45> Assessment and Plan - Plan Assessment Acute on chronic diastolic congestive heart failure with volume overload Atrial fibrillation the on chronic anticoagulation therapy CKD stage 4 Diabetes mellitus type 2-insulin dependent Hypertension Hyperlipidemia Hypothyroidism GERD Obesity Plan Acute on chronic diastolic congestive heart failure with volume overload: Patient takes Lasix 120 mg p.o. t.i.d. in addition to metolazone 10 mg daily alcohol, patient continues to have significant volume overload with these doses at home. Continue with IV Lasix drip and metolazone 5 mg p.o. daily as recommended by Nephrology. Gudino catheter in place to monitor output. Most recent echocardiogram done in September of this year shows ejection fraction greater than 70%. DVT prophylaxis heparin 5000 subcutaneous twice daily. Fluid restriction and daily weights. Atrial fibrillation the on chronic anticoagulation therapy: Continue amiodarone, monitor on telemetry. CKD stage 4: GFR 25, down from only 26. Patient appears to be at baseline but has had a steady trend of worsening renal function. Diabetes mellitus type 2-insulin dependent: A.c. hs Accu-Chek, sliding scale insulin therapy in addition to long-acting and with meal. Hypertension: Obtain and continue home medications Hyperlipidemia: Obtain and continue home medications Hypothyroidism: Obtain and continue home medications GERD: Obtain and continue home medications Obesity: Lifestyle changes encouraged. Discharge Plan: Home Plan to discharge in: 48 Hours - Advance Directives Does patient have a Living Will: No Does patient have a Durable POA for Healthcare: Yes - Code Status/Comfort Care Code Status Assessed: Yes (Full code) Critical Care: No Time Spent Managing Pts Care (In Minutes): 55 <Flex Hathaway - Last Filed: 09/01/20 19:45> - Plan plan of care reviewed and agree as noted above by Flex Hathaway. IV lasix drip, gudino for strict I/O's. Nephrology consulted <Yash Leos - Last Filed: 09/07/20 13:56>
[2020-09-01] MEDS ORDERED: ONDANSETRON 4 MG/2 ML VIAL IV PRN (20:43)
[2020-09-01] MEDS ORDERED: D50W 25 GM/50 ML SYRINGE IV PRN (20:43)
[2020-09-01] MEDS ORDERED: GLUCAGON 1 MG/VIAL IM PRN (20:43)
[2020-09-01] MEDS ORDERED: FUROSEMIDE 100 MG in NA CHLORIDE 0.9% 90 ML IV SCH (20:43)
[2020-09-01 21:22] VITALS: BMI 38.9
[2020-09-01] MEDS: INSULIN GLARGINE 100 UNITS/ML SQ SCH (21:27)
[2020-09-01] MEDS: HEPARIN 5000 UNIT/ML 1 ML VIAL SQ SCH (21:27)
[2020-09-01] MEDS: INSULIN -REGULAR HUMAN 50 UNIT/0.5 ML ML SQ SCH (21:28)
[2020-09-02] MEDS ORDERED: FUROSEMIDE 40 MG/4 ML VIAL ONE ×2 (00:25→03:28)
[2020-09-02] MEDS ORDERED: FUROSEMIDE 20 MG/ 2ML VIAL ONE ×2 (00:26→03:28)
[2020-09-02] MEDS ORDERED: NA CHLORIDE 0.9% 100 ML ONE ×2 (00:26→03:28)
[2020-09-02] MEDS: FUROSEMIDE 100 MG in NA CHLORIDE 0.9% 90 ML IV SCH ×5 (00:26→20:27)
[2020-09-02 05:44] LABS: Absolute Lymphocytes (CBC) 1.2 K/uL (0.7-4.9); Basophils % 0.6 % (0-1.3); Hematocrit 36.1 % (39.6-49.0); Lymphocytes % 14.5 % (15.3-44.8); RBC Red Blood Cell Count 4.15 M/uL (4.33-5.43)
[2020-09-02 06:00] LABS: Magnesium 2.5 mg/dL (1.8-2.4); Potassium 3.5 mmol/L (3.5-5.1)
[2020-09-02] MEDS ORDERED: INSULIN -REGULAR HUMAN 50 UNIT/0.5 ML ML SQ SCH (07:30)
[2020-09-02] MEDS: INSULIN -REGULAR HUMAN 50 UNIT/0.5 ML ML SQ SCH ×4 (08:57→20:23)
[2020-09-02] MEDS: HEPARIN 5000 UNIT/ML 1 ML VIAL SQ SCH ×2 (08:57→20:25)
[2020-09-02] MEDS: allopurinoL 100 MG TAB PO SCH (08:58)
[2020-09-02] MEDS: TAMSULOSIN 0.4 MG SR CAP PO SCH ×2 (08:58→20:25)
[2020-09-02] MEDS: METOLAZONE 5 MG TABLET PO SCH (08:58)
[2020-09-02] MEDS: AMIODARONE HCL 200 MG TAB PO SCH (08:58)
[2020-09-02] MEDS: PANTOPRAZOLE 40MG TABLET PO SCH (08:58)
--- NOTE | 2020-09-02 10:21 | P.CNS ---
Date of Consult: 09/02/20 Reason for Consult: OTIS, fluid overload Primary Care Provider: Dr. Mckenzie, Dr. Kincaid Chief Complaint: CHF exacerbation History of Present Illness: An 84-year-old gentleman, with PMhx of HTN, HLD, CKD IV , CHF<, COPD, pulmonary HTN pt presented with Edema and increased abdominal girth pt was on lasix 120mg po tid and metolazone, he noticed increased abdominal girth with worsening leg edema advised to come to ER his cr now 2.5, CXR with mild edema started don lasix drip Review of Systems: Head and Neck: No red eye. No ear pain. GI: distended abdeomen, no nause or vomiting , worsening leg edema : No polyuria, no dysuria, no hematuria. Software Systems Engineer: Not applicable. Respiratory: mild shortness of breath. Cardiovascular: No chest pain. Endocrine: No polydipsia. Skin: No rash. Neuro: Has neuropathy. 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 cr baseline 2.0 , slowly progressing from 1.5 over last year I/O daily wt Cont lasix srip and metolazone urinary retention will Keep Pickett cont Flomax DM as per primary HTN resume home meds edema diuretics as above total time spent 40min daily wt I/o salt and fluid restriction Allergies No Known Allergies Allergy (Verified 01/19/18 04:44) Home Medications: Allopurinol 100 mg PO DAILY 09/01/20 Bumetanide [Bumex] 2 mg PO BID 09/01/20 Furosemide [Lasix] 120 mg PO TID 09/01/20 Metolazone [Zaroxolyn] 10 mg PO DAILY 09/01/20 Pantoprazole [Protonix Tab*] 40 mg PO DAILY 09/01/20 Spironolactone [Aldactone*] 25 mg PO DAILY 09/01/20 Tamsulosin [Flomax*] 1 tab PO BID 09/01/20 - Past Medical/Surgical History Diabetic: Yes -: HTN -: Hyperlipidemia -: Diabetes mellitus type 2 insulin-dependent -: History of asbestosis -: MRSA foot w/ cellulitis -: Obstructive sleep apnea -: Chronic atrial fibrillation not on chronic anti coagulation -: Diastolic CHF -: Chronic lymphedema -: Hypothyroidism -: Chronic renal disease stage III -: Bilateral wrist sx ([place] and broke both wrist) -: cataract sx -: Right hip sx r/t fx Psychosocial/ Personal History: Patient lives at home by himself but has caregiver coming throughout the week. - Family History Mother Notes: denies having family history of illness Father Notes: denies having family history of illness Sister Notes: denies having family history of illness Brother Notes: denies having family history of illness - Social History Smoking Status: Unknown if ever smoked Alcohol use: No CD- Drugs: No Caffeine use: Yes Place of Residence: Home Physical Examination Temp Pulse Resp BP Pulse Ox 96.9 F 85 16 139/63 91 09/02/20 08:00 09/02/20 08:00 09/02/20 08:00 09/02/20 08:00 09/02/20 08:00 Laboratory Data (last 24 hrs) 09/01/20 18:03: PT 12.5, INR 1.06 09/01/20 18:03: WBC 9.0, Hgb 11.8 L, Hct 35.7 L, Plt Count 192 09/01/20 18:03: Sodium 135 L, Potassium 3.7, BUN 91 H, Creatinine 2.53 H, Glucose 162 H, Magnesium 2.6 H D, Total Bilirubin 0.3, AST 13 L, ALT 14, Alkaline Phosphatase 76
--- NOTE | 2020-09-02 13:12 | P.PN ---
Subjective Date of Service: 09/02/20 Primary Care Provider: Dr. Mckenzie, Dr. Kincaid Chief Complaint: CHF exacerbation Physical Examination - Vital Signs Temperature: 96.9 F Blood Pressure: 139/63 Pulse: 85 Respirations: 16 Pulse Ox (%): 91 - Studies Laboratory Data (last 24 hrs) 09/01/20 18:03: PT 12.5, INR 1.06 09/01/20 18:03: WBC 9.0, Hgb 11.8 L, Hct 35.7 L, Plt Count 192 09/01/20 18:03: Sodium 135 L, Potassium 3.7, BUN 91 H, Creatinine 2.53 H, Glucose 162 H, Magnesium 2.6 H D, Total Bilirubin 0.3, AST 13 L, ALT 14, Alkaline Phosphatase 76 Assessment & Plan Physician Review Additional Text: Acute on chronic diastolic congestive heart failure with volume overload Atrial fibrillation the on chronic anticoagulation therapy CKD stage 4 Diabetes mellitus type 2-insulin dependent Hypertension Hyperlipidemia Hypothyroidism GERD Obesity Plan Acute on chronic diastolic congestive heart failure with volume overload: home regimen is 120mg PO TID and metolazone 10mg daily. has singificant volume overload at this time continue IV Lasix drip and metolazone 5mg daily. Nephrology consulted continue gudino to monitor output Most recent echocardiogram done in September of this year shows ejection fraction greater than 70%. continue fluid restriction Atrial fibrillation the on chronic anticoagulation therapy: Continue amiodarone, monitor on telemetry. CKD stage 4: GFR 25, down from only 26. steady trend of worsening CR Diabetes mellitus type 2-insulin dependent: A.c. hs Accu-Chek, sliding scale insulin therapy in addition to long-acting and with meal. HTN, HLD, hypothyroidism, GERD, Obesity - appear stable, continue home medications Dispo: anticipate dc home in 48-72 hrs Time Spent Managing Pts Care (In Minutes): 35
[2020-09-02] MEDS: INSULIN GLARGINE 100 UNITS/ML SQ SCH (20:23)
[2020-09-03] MEDS: FUROSEMIDE 100 MG in NA CHLORIDE 0.9% 90 ML IV SCH ×3 (01:41→12:06)
[2020-09-03 05:51] LABS: Absolute Lymphocytes (CBC) 1.2 K/uL (0.7-4.9); Basophils % 1.1 % (0-1.3); Hematocrit 38.2 % (39.6-49.0); Lymphocytes % 14.6 % (15.3-44.8); MPV 7.8 fL (7.6-11.3); RBC Red Blood Cell Count 4.44 M/uL (4.33-5.43)
[2020-09-03 06:07] LABS: Magnesium 2.6 mg/dL (1.8-2.4); Potassium 3.4 mmol/L (3.5-5.1)
[2020-09-03] MEDS: INSULIN -REGULAR HUMAN 50 UNIT/0.5 ML ML SQ SCH ×4 (09:33→21:09)
[2020-09-03] MEDS: allopurinoL 100 MG TAB PO SCH (09:34)
[2020-09-03] MEDS: HEPARIN 5000 UNIT/ML 1 ML VIAL SQ SCH ×2 (09:34→21:08)
[2020-09-03] MEDS: PANTOPRAZOLE 40MG TABLET PO SCH (09:34)
[2020-09-03] MEDS: METOLAZONE 5 MG TABLET PO SCH (09:34)
[2020-09-03] MEDS: AMIODARONE HCL 200 MG TAB PO SCH (09:34)
[2020-09-03] MEDS: TAMSULOSIN 0.4 MG SR CAP PO SCH ×2 (09:34→21:08)
--- NOTE | 2020-09-03 15:35 | RAD REPORT ---
EXAM DESCRIPTION: [facility] Single View09/03/2020 2:46 pm CLINICAL HISTORY: Shortness of breath COMPARISON: September 01 FINDINGS: Mild bilateral pulmonary opacities appear resolved. Calcified pleural plaques The heart remains enlarged
--- NOTE | 2020-09-03 16:14 | P.PN ---
Subjective Date of Service: 09/03/20 Primary Care Provider: Dr. Mckenzie, Dr. Kincaid Chief Complaint: CHF exacerbation Subjective: Improving (Breathing better, feels the swelling has gone down a little bit but also states he is not sure Urine output with ~6L since yesterday) Review of Systems 10-point ROS is otherwise unremarkable Physical Examination - Vital Signs Temperature: 97 F Blood Pressure: 134/62 Pulse: 75 Respirations: 18 Pulse Ox (%): 95 - Physical Exam General: Alert, In no apparent distress HEENT: Sclerae nonicteric Respiratory: Diminished (Slightly at bases bilaterally, otherwise clear) Cardiovascular: Regular rate/rhythm, Edema (2+ bilaterally to the knees) Gastrointestinal: Soft and benign, No tenderness Integumentary: Erythema (Of bilateral lower legs, with venous stasis changes) Neurological: Normal speech, Normal affect Assessment & Plan Physician Review Additional Text: Acute on chronic diastolic congestive heart failure with volume overload Atrial fibrillation the on chronic anticoagulation therapy CKD stage 4 Diabetes mellitus type 2-insulin dependent Hypertension Hyperlipidemia Hypothyroidism GERD Obesity Plan Acute on chronic diastolic congestive heart failure with volume overload: home regimen is 120mg PO TID and metolazone 10mg daily. Presented with significant volume overload continue IV Lasix drip and metolazone 5mg daily per nephrology. Patient w/ approximately 6 L urine output since yesterday continue gudino to monitor output Most recent echocardiogram done in September of this year shows ejection fraction greater than 70%. continue fluid restriction Atrial fibrillation the on chronic anticoagulation therapy: Continue amiodarone, monitor on telemetry. CKD stage 4: GFR 25, down from only 26. Slightly improved today Diabetes mellitus type 2-insulin dependent: A.c. hs Accu-Chek, sliding scale insulin therapy in addition to long-acting and with meal. HTN, HLD, hypothyroidism, GERD, Obesity - appear stable, continue home medications Dispo: anticipate dc home in 24-48 hrs Time Spent Managing Pts Care (In Minutes): 34
[2020-09-03] MEDS ORDERED: FUROSEMIDE 40 MG/4 ML VIAL IV SCH (17:00)
[2020-09-03] MEDS: FUROSEMIDE 80 MG in NA CHLORIDE 0.9% 50 ML IV SCH (17:00)
[2020-09-03] MEDS ORDERED: FUROSEMIDE 40 MG/4 ML VIAL ONE (17:43)
[2020-09-03] MEDS ORDERED: NA CHLORIDE 0.9% 50 ML ONE (17:44)
[2020-09-03] MEDS ORDERED: NA CHLORIDE 0.9% 100 ML ONE (17:45)
--- NOTE | 2020-09-03 18:31 | PN ---
Date of Progress Note: 09/03/2020 Subjective: The patient was admitted with anasarca. The patient failed on outpatient diuresis. Apparently, patient resumed his gabapentin. For that reason, his anasarca started worsening. Today patient gained almost 8 pounds upon admission. We started the patient on Lasix drip. Patient responding very well. Physical Examination: Vital Signs: Blood pressure 134/62, pulse of 75, afebrile. The patient had good urine output of 4600. The patient lost 8 pounds from yesterday. Chest: Decreased entry bilateral base. Heart: S1, S2. Systolic murmur. Abdomen: Soft, nontender. Extremities: Erythema of both lower extremity with venous stasis change. Swelling has been subsided significantly. Neurologic: Alert and oriented x3. No focal. Laboratory Data: WBC 8.1, H and H 12.8/38.2. Yesterday it was 11.9 hemoglobin. Sodium 132, potassium 3.4, bicarb 39, BUN 84, creatinine 2.2, GFR of 28, magnesium 2.6, calcium 9.6. Urinalysis; specific gravity of 1.020. Current Medications: The patient on include Lasix 20 mg drip, Flomax 0.4 b.i.d., amiodarone, metolazone 5 mg, pantoprazole, and allopurinol. Assessment And Plan: 1. Acute kidney injury secondary to cardiorenal over volume, currently better volume control. I am going to go ahead and discontinue Lasix drip, start the patient on bolus of Lasix. We will continue to monitor the patient. 2. Hypertension, controlled, optimal. We will utilize blood pressure for more diuresis. 3. Hypokalemia. We will supplement. 4. Anasarca secondary to cardiorenal. As above, I am going to change the Lasix. We will order a new chest x-ray for better evaluation of the fluid status for the patient and we will repeat TSH. 5. Obstructive uropathy. Continue Flomax. 6. Venous stasis. Continue local care. 7. Neuropathy. The patient not a candidate for Neurontin. I am going to place the patient on amitriptyline and we will follow up the patient. Time spent discussing the case with the patient and family by the bedside [id number] discussing the case with our executive team leader including hospitalist placing order 45 minutes. SHARON Voice ID: [id number] Report ID: [id number] ANN
[2020-09-03] MEDS: INSULIN GLARGINE 100 UNITS/ML SQ SCH (21:08)
[2020-09-03] MEDS: AMITRIPTYLINE 25 MG TAB PO SCH (21:08)
[2020-09-04] MEDS: FUROSEMIDE 80 MG in NA CHLORIDE 0.9% 50 ML IV SCH ×2 (00:30→08:56)
[2020-09-04] MEDS ORDERED: FUROSEMIDE 40 MG/4 ML VIAL ONE (00:40)
[2020-09-04] MEDS ORDERED: NA CHLORIDE 0.9% 50 ML ONE (00:40)
[2020-09-04 06:40] LABS: Albumin 3.1 g/dL (3.4-5.0); Phosphorus 4.3 mg/dL (2.5-4.9); Potassium 3.2 mmol/L (3.5-5.1)
[2020-09-04 06:59] LABS: Thyroid Stimulating Hormone 4.98 uIU/mL (0.360-3.740)
[2020-09-04] MEDS: INSULIN -REGULAR HUMAN 50 UNIT/0.5 ML ML SQ SCH ×4 (07:30→20:28)
[2020-09-04] MEDS: PANTOPRAZOLE 40MG TABLET PO SCH (08:57)
[2020-09-04] MEDS: AMIODARONE HCL 200 MG TAB PO SCH (08:57)
[2020-09-04] MEDS: allopurinoL 100 MG TAB PO SCH (08:58)
[2020-09-04] MEDS: HEPARIN 5000 UNIT/ML 1 ML VIAL SQ SCH ×2 (08:58→20:27)
[2020-09-04] MEDS: TAMSULOSIN 0.4 MG SR CAP PO SCH ×2 (08:58→20:27)
[2020-09-04] MEDS: METOLAZONE 5 MG TABLET PO SCH (08:58)
[2020-09-04] MEDS ORDERED: POTASSIUM CL SA 10 MEQ TAB PO SCH (09:00)
[2020-09-04] MEDS: ACETAMINOPHEN 500 MG TAB PO PRN (09:14)
[2020-09-04] MEDS: POTASSIUM CL SA 10 MEQ TAB PO SCH (12:09)
--- NOTE | 2020-09-04 12:44 | PN ---
Date of Progress Note: 09/04/2020 Subjective: The patient was admitted with anasarca secondary to gabapentin. After diuresis, the patient was started on Lasix drip. This switched yesterday to IV bolus, tolerated well. Continued to lose weight. Physical Examination: Vital Signs: Blood pressure 129/62, pulse of 85. The patient had urine output of 2600, negative of 700. The patient lost another 6 pounds. Chest: Decreased entry bilateral base. Heart: S1, S2. Systolic murmur. Abdomen: Soft, nontender. Extremities: Erythema bilateral with venous stasis. No edema. Laboratory Data: WBC 8.1, H and H 12.8/38.2. Sodium 133, potassium 3.2, bicarb 39, BUN 84, creatinine 2.4, calcium 9.2, phosphorus 4.3, albumin 3.1. Current Medications: The patient on Flomax, heparin, amiodarone 200 daily, amitriptyline 25, Lasix 80 t.i.d., IV metolazone 5 mg daily, pantoprazole 40, allopurinol 100. Assessment And Plan: 1. Anasarca secondary to gabapentin, cardiorenal. Responding to current dose of diuresis. I am going to go ahead and switch him to oral 100 t.i.d. We will continue metolazone. I do not see any need for other diuresis. If kidney function continues stable, continue to lose weight. The patient is going to be cleared from the renal standpoint for discharge planning. 2. Hypokalemia. We will supplement. I am going to increase his daily supplement to 40. 3. Hypertension. We will utilize the blood pressure for more diuresis. 4. Coronary artery disease with congestive heart failure. We will continue diuresis as above. 5. Hyponatremia, dilutional. Continue Lasix. Continue current dose of metolazone. 6. Neuropathy. We will continue with amitriptyline. time spend exam the patient face to face , place order , discussed the case with other meat service team member hospitalist and other consulatant 45 min. SISSY/SUSHANT Voice ID: [id number] Report ID: [id number]
[2020-09-04] MEDS: FUROSEMIDE 40 MG TABLET PO SCH ×2 (14:16→20:26)
--- NOTE | 2020-09-04 16:08 | P.PN ---
Subjective Date of Service: 09/04/20 Primary Care Provider: Dr. Mckenzie, Dr. Kincaid Chief Complaint: CHF exacerbation Subjective: Improving (Diuresing well, reports swelling is improving, breathing more comfortably Had high glucose yesterday, states she was eating sugary cough drops by accident yesterday) Review of Systems 10-point ROS is otherwise unremarkable Physical Examination - Vital Signs Temperature: 97.1 F Blood Pressure: 137/61 Pulse: 70 Respirations: 20 Pulse Ox (%): 92 - Physical Exam General: Alert, In no apparent distress HEENT: Sclerae nonicteric Respiratory: Diminished (At bases bilaterally, on 1.5 L nasal cannula) Cardiovascular: Edema (2+ bilaterally to mid thigh) Gastrointestinal: Soft and benign, Non-distended, No tenderness Musculoskeletal: No tenderness Integumentary: Erythema (Bilateral lower extremities, anterior tibial) Neurological: Normal speech, Normal affect Urinary: Gudino catheter Assessment & Plan Physician Review Additional Text: Acute on chronic diastolic congestive heart failure with volume overload Atrial fibrillation the on chronic anticoagulation therapy CKD stage 4 Diabetes mellitus type 2-insulin dependent Hypertension Hyperlipidemia Hypothyroidism GERD Obesity Plan Acute on chronic diastolic congestive heart failure with volume overload: CKD stage 4: home regimen is 120mg PO TID and metolazone 10mg daily. Presented with significant volume overload Was taken off Lasix drip yesterday, continues to diurese well on IV lasix to switch to PO today, if continues to diurese well without worsening of renal function, patient can likely be dc'd home tomorrow continue gudino to monitor output Most recent echocardiogram done in September of this year shows ejection fraction greater than 70%. continue fluid restriction Atrial fibrillation the on chronic anticoagulation therapy: Continue amiodarone, monitor on telemetry. Diabetes mellitus type 2-insulin dependent: ACHS Accu-Chek, sliding scale insulin therapy in addition to long-acting and with meal. HTN, HLD, hypothyroidism, GERD, Obesity - appear stable, continue home medications Dispo: anticipate dc home in ~24 hrs Time Spent Managing Pts Care (In Minutes): 40
[2020-09-04] MEDS: AMITRIPTYLINE 25 MG TAB PO SCH (20:27)
[2020-09-04] MEDS: INSULIN GLARGINE 100 UNITS/ML SQ SCH (20:27)
[2020-09-04] MEDS: MELATONIN 5 MG TABLET PO PRN (21:43)
[2020-09-05] MEDS: ACETAMINOPHEN 500 MG TAB PO PRN ×2 (03:47→19:34)
[2020-09-05 04:55] LABS: Albumin 3.2 g/dL (3.4-5.0); Phosphorus 4.5 mg/dL (2.5-4.9); Potassium 3.3 mmol/L (3.5-5.1)
[2020-09-05] MEDS: INSULIN -REGULAR HUMAN 50 UNIT/0.5 ML ML SQ SCH ×4 (07:30→22:14)
[2020-09-05] MEDS: TAMSULOSIN 0.4 MG SR CAP PO SCH ×2 (08:46→22:05)
[2020-09-05] MEDS: allopurinoL 100 MG TAB PO SCH (08:46)
[2020-09-05] MEDS: AMIODARONE HCL 200 MG TAB PO SCH (08:46)
[2020-09-05] MEDS: PANTOPRAZOLE 40MG TABLET PO SCH (08:46)
[2020-09-05] MEDS: METOLAZONE 5 MG TABLET PO SCH (08:46)
[2020-09-05] MEDS: POTASSIUM CL SA 10 MEQ TAB PO SCH (08:48)
[2020-09-05] MEDS: FUROSEMIDE 40 MG TABLET PO SCH ×3 (08:48→22:05)
[2020-09-05] MEDS: HEPARIN 5000 UNIT/ML 1 ML VIAL SQ SCH ×2 (08:48→22:06)
[2020-09-05] MEDS ORDERED: SIMETHICONE 125 MG TAB PO PRN (10:57)
--- NOTE | 2020-09-05 20:12 | P.PN ---
Subjective Date of Service: 09/05/20 Primary Care Provider: Dr. Mckenzie, Dr. Kincaid Chief Complaint: CHF exacerbation Subjective: Improving (Swelling improved, breathing improved, without any other complaints) Review of Systems 10-point ROS is otherwise unremarkable Physical Examination - Vital Signs Temperature: 97.5 F Blood Pressure: 159/65 Pulse: 45 Respirations: 17 Pulse Ox (%): 94 - Physical Exam General: Alert, In no apparent distress HEENT: Sclerae nonicteric Respiratory: Clear to auscultation bilaterally Cardiovascular: Regular rate/rhythm, Edema (1+ bilaterally to the knees) Gastrointestinal: Soft and benign, Non-distended, No tenderness Integumentary: Erythema (Mild lower extremities; improved) Neurological: Normal speech, Normal affect Urinary: Pickett catheter Assessment & Plan Physician Review Additional Text: Acute on chronic diastolic congestive heart failure with volume overload Atrial fibrillation the on chronic anticoagulation therapy 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 Presented with significant volume overload Diuresed well on the IV Lasix drip, and then scheduled IV Lasix Doing well with PO Lasix. Discussed with nephrology, would like to monitor 1 more day Remove Pickett this evening for voiding trial (was only placed for strict I/Os) Most recent echocardiogram done in September of this year shows ejection fraction greater than 70%. continue fluid restriction Atrial fibrillation the on chronic anticoagulation therapy: Continue amiodarone, monitor on telemetry. Diabetes mellitus type 2-insulin dependent: ACHS Accu-Chek, sliding scale insulin therapy in addition to long-acting and with meal. HTN, HLD, hypothyroidism, GERD, Obesity - appear stable, continue home medications Dispo: anticipate dc home tomorrow Time Spent Managing Pts Care (In Minutes): 35
--- NOTE | 2020-09-05 21:21 | PN ---
Date of Progress Note: 09/05/2020 Chief Complaint: Congestive heart failure and generalized weakness. Subjective: The patient was started on Lasix drip for fluid overload to control anasarca and subsequently he was switched to IV Lasix doses. Review of Systems: The patient denies PND or orthopnea. The patient denies headache or vision changes. Physical Examination: Chest: Decreased breath bilaterally at bases. Heart: S1, S2. 2/6 systolic murmur at left lower sternal border. Abdomen: Soft, nontender. Extremities: Bilateral venous stasis and edema has improved. Laboratory Data: BUN 84, creatinine 2.4, calcium 9.2, phosphorus is 4.3, albumin 3.1. Impression And Plan: 1. Anasarca. The patient is responding to diuretics. The patient is requesting to be discharged home. Plan is to adjust diuretic and switch to oral form. The patient has a Pickett catheter. Plan is to remove catheter and start Flomax to facilitate bladder emptying. The patient will follow up with Nephrology outpatient. 2. Hyponatremia, dilutional. The patient will continue Lasix. Monitor electrolytes closely. 3 Congestive heart failure, fluid overload , anasarca, continue low Sodium diet , monitor renal panel adjust diuretics according to volemia status. 4. Acute on chronic kidney injury with high BUN/creat ratio secondary to cardiorenal syndrome, avoid nephrotoxic medications, continue low Sodium diet and Lasix. 5 Hyponatremia secondary to congestive heart failure , continue low Sodium diet and lasix , monitor renal panel and check TSH EB/MODL Voice ID: [id number] Report ID: [id number] ANN
[2020-09-05] MEDS: AMITRIPTYLINE 25 MG TAB PO SCH (22:05)
[2020-09-05] MEDS: INSULIN GLARGINE 100 UNITS/ML SQ SCH (22:14)
[2020-09-05] MEDS: MELATONIN 5 MG TABLET PO PRN (22:25)
[2020-09-06 06:28] LABS: Albumin 3.2 g/dL (3.4-5.0); Phosphorus 4.8 mg/dL (2.5-4.9); Potassium 3.1 mmol/L (3.5-5.1)
[2020-09-06] MEDS: METOLAZONE 5 MG TABLET PO SCH (09:03)
[2020-09-06] MEDS: FUROSEMIDE 40 MG TABLET PO SCH (09:04)
[2020-09-06] MEDS: AMIODARONE HCL 200 MG TAB PO SCH (09:04)
[2020-09-06] MEDS: POTASSIUM CL SA 10 MEQ TAB PO SCH (09:05)
[2020-09-06] MEDS: PANTOPRAZOLE 40MG TABLET PO SCH (09:05)
[2020-09-06] MEDS: allopurinoL 100 MG TAB PO SCH (09:05)
[2020-09-06] MEDS: TAMSULOSIN 0.4 MG SR CAP PO SCH (09:05)
[2020-09-06] MEDS: INSULIN -REGULAR HUMAN 50 UNIT/0.5 ML ML SQ SCH ×2 (09:06→12:13)
[2020-09-06] MEDS: HEPARIN 5000 UNIT/ML 1 ML VIAL SQ SCH (09:06)
--- NOTE | 2020-09-06 11:07 | P.DS ---
Admission Date: 09/01/20 Discharge Date: 09/06/20 Primary Care Provider: Dr. Sanjiv Colbert Disposition: DC HOME/HOME HEALTH CARE Discharge Condition: FAIR Reason for Admission: CHF exacerbation - Problems (1) 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 Current Visit: No Status: Acute (2) Acute on chronic kidney failure Current Visit: No Status: Acute (3) Anasarca Current Visit: No Status: Acute (4) Atrial fibrillation with rapid ventricular response Onset Date: 01/20/18 Current Visit: No Status: Acute (5) Hypothyroidism Current Visit: No Status: Acute (6) Morbid obesity with BMI of 40.0-44.9, adult Current Visit: No Status: Acute (7) Obstructive sleep apnea Current Visit: No Status: Acute (8) Diabetes Current Visit: No Status: Chronic Brief History of Present Illness: 84-year-old gentleman with a history of chronic diastolic heart failure, chronic kidney disease, chronic atrial fibrillation presented to the emergency department with a complaint of progressive shortness of breath and increased body swelling and leg edema. He is on Lasix 120 mg t.i.d. and metolazone 10 mg daily for anasarca. Patient gaining weight despite being on these medications. He informed his collection development librarian Dr. Kincaid recommended patient's come to the emergency department in order to be admitted for Lasix drip. Patient presented to the ED and was subsequently admitted. Hospital Course: Patient was admitted to the medical floor and started on Lasix trips for anasarca. He diuresed well and anasarca improved significantly. Lasix drip was then scale down to oral Lasix 100 mg 3 times a day plus metolazone. His vitals were stable and renal function ulcer stable with the Lasix. Patient has clinically improved and continue to diurese with oral Lasix. Patient will be discharged with this regimen. Fluid restriction to 1500 mg daily and salt restriction re-emphasized. Vital Signs/Physical Exam: Temp Pulse Resp BP Pulse Ox 96.9 F 82 16 127/64 94 09/06/20 08:00 09/06/20 09:03 09/06/20 08:00 09/06/20 09:03 09/06/20 08:00 General: Alert, In no apparent distress Neck: Supple Respiratory: Clear to auscultation bilaterally, Normal air movement Cardiovascular: Normal S1 S2, Edema (1+ bilateral lower extremity edema.), Irregular heart rate/rhythm Gastrointestinal: Normal bowel sounds, Soft and benign Musculoskeletal: Erythema (and hemosiderin stained bilateral lower extremity) Neurological: Other (Nonfocal.) Laboratory Data at Discharge: WBC 8.1 K/uL (4.3-10.9) 09/03/20 05:18 Hgb 12.8 g/dL (13.6-17.9) L 09/03/20 05:18 Hct 38.2 % (39.6-49.0) L 09/03/20 05:18 Plt Count 176 K/uL (152-406) 09/03/20 05:18 PT 12.5 SECONDS (9.5-12.5) 09/01/20 18:03 INR 1.06 09/01/20 18:03 Sodium 132 mmol/L (136-145) L 09/06/20 05:49 Potassium 3.1 mmol/L (3.5-5.1) L 09/06/20 05:49 BUN 86 mg/dL (7-18) H 09/06/20 05:49 Creatinine 2.49 mg/dL (0.55-1.3) H 09/06/20 05:49 Glucose 183 mg/dL (74-106) H 09/06/20 05:49 Phosphorus 4.8 mg/dL (2.5-4.9) 09/06/20 05:49 Magnesium 2.6 mg/dL (1.8-2.4) H 09/03/20 05:18 Total Bilirubin 0.3 mg/dL (0.2-1.0) 09/01/20 18:03 AST 13 U/L (15-37) L 09/01/20 18:03 ALT 14 U/L (12-78) 09/01/20 18:03 Alkaline Phosphatase 76 U/L (45-117) 09/01/20 18:03 Home Medications: Allopurinol 100 mg PO DAILY 09/01/20 Pantoprazole [Protonix Tab*] 40 mg PO DAILY 09/01/20 Tamsulosin [Flomax*] 1 tab PO BID 09/01/20 Amiodarone HCl [Cordarone*] 200 mg PO DAILY #30 tab 09/06/20 Furosemide [Lasix*] 100 mg PO TID #226 tab 09/06/20 Insulin Glargine Human [Lantus*] 35 units SQ BEDTIME #10 ml 09/06/20 Melatonin 10 mg PO BEDTIME PRN PRN #30 tablet 09/06/20 Potassium Oral Tab [Klor-Con 10 mEq Tab*] 40 meq PO DAILY #120 tab 09/06/20 metOLazone [Zaroxolyn*] 5 mg PO DAILY #30 tab 09/06/20 New Medications: Amiodarone HCl [Cordarone*] 200 mg PO DAILY #30 tab Potassium Oral Tab [Klor-Con 10 mEq Tab*] 40 meq PO DAILY #120 tab Insulin Glargine Human [Lantus*] 35 units SQ BEDTIME #10 ml Furosemide [Lasix*] 100 mg PO TID #226 tab Melatonin 10 mg PO BEDTIME PRN PRN #30 tablet PRN Reason: Insomnia metOLazone [Zaroxolyn*] 5 mg PO DAILY #30 tab Diet: ADA Activity: Ad jovi Followup: Ruby Kincaid MD [ACTIVE - CAN ADMIT] - 1-2 Weeks Shaquille Gagnon MD [ACTIVE - CAN ADMIT] - Cesar Mckenzie MD [Primary Care Provider] - 1 Week Time spent managing pt's care (in minutes): 40
[2020-09-06 12:34] VITALS: BP 155/68; TEMP 97.7; O2SAT 95
--- NOTE | 2020-09-06 14:49 | PN ---
Date of Progress Note: 09/06/2020 Subjective: The patient was admitted with anasarca. The patient was started on aggressive diuresis with the Lasix, then drip, then switched to bolus, then to oral. The patient tolerated very well. Continue to have negative balance. edema 2nd to gabapentin. Objective: Vital Signs: Blood pressure 155/68, pulse of 46, afebrile. The patient had urine output of 2600, the patient negative of 1100. Chest: Clear to auscultation. Heart: S1 and S2 regular. Systolic murmur. Abdomen: Soft, nontender. Extremities: Erythema. Bilateral swelling has been subsided significantly. Laboratory Data: H and H 12.8/38.2. Sodium 132, potassium 3.1, bicarb 37, BUN 86, creatinine 4.9, GFR 25, calcium 9.2, phosphorus 4.8, albumin 3.2, corrected calcium of 10. Current Medications: The patient on include Lasix 100 t.i.d., metolazone 5 mg daily, amitriptyline 25, Zofran, pantoprazole, KCl, Flomax. Assessment/plan: 1. Acute kidney injury secondary to progression of the disease/cardiorenal. I am going to continue current diuresis 100 mg t.i.d. with metolazone. Keep holding spironolactone. 2. Hypertension, controlled, optimal. I will utilize blood pressure for more ultrafiltration. 3. Hypokalemia. Continue supplement. 4. Anasarca secondary to renal failure, cardiorenal/gabapentin, recover. Keep holding gabapentin. Continue amitriptyline. 5. Venous stasis. Continue stocking socks. time spend exam the patient face to face , place order , discussed the case with other steam and gas turbine assembler hospitalist and other consulatant 45 min. SISSY/SUSHANT Voice ID: [id number] Report ID: [id number] ANN
== END 2020-09-06 12:50 | disposition home or self-care (01) | DRG 291 ==
LOC: ER 17:12 → ERHOLD 19:34 → 2ND 20:28
PROVIDERS: ADMIT Hospitalist; ATTEND Internal Medicine
DX: I13.0 Hypertensive heart and chronic kidney disease with heart failure and stage 1 through stage 4 chronic kidney disease, or unspecified chronic kidney disease (principal); I50.33 Acute on chronic diastolic (congestive) heart failure; N18.4 Chronic kidney disease, stage 4 (severe); I48.20 Chronic atrial fibrillation, unspecified; N17.9 Acute kidney failure, unspecified; E87.1 Hypo-osmolality and hyponatremia; Z68.41 Body mass index [BMI] 40.0-44.9, adult; E66.01 Morbid (severe) obesity due to excess calories; E11.22 Type 2 diabetes mellitus with diabetic chronic kidney disease; E78.5 Hyperlipidemia, unspecified; J44.9 Chronic obstructive pulmonary disease, unspecified; E03.9 Hypothyroidism, unspecified; K21.9 Gastro-esophageal reflux disease without esophagitis; Z60.2 Problems related to living alone; E87.6 Hypokalemia; N13.9 Obstructive and reflux uropathy, unspecified; I87.8 Other specified disorders of veins; E11.40 Type 2 diabetes mellitus with diabetic neuropathy, unspecified; I25.10 Atherosclerotic heart disease of native coronary artery without angina pectoris; G47.33 Obstructive sleep apnea (adult) (pediatric); R33.9 Retention of urine, unspecified; Z79.01 Long term (current) use of anticoagulants; Z79.899 Other long term (current) drug therapy; Z79.4 Long term (current) use of insulin; Z20.828 Contact with and (suspected) exposure to other viral communicable diseases
CPT/HCPCS: 36415; 51702; 71045; 80048; 80069; 80076; 81003; 81015; 82947; 83735; 83880; 84439; 84443; 84484; 85025; 85610; 93005; 96374; 99285; J1644; J1815; J1940; U0003

== ENCOUNTER 2021-09-06 14:47 | Inpatient (IN) | payer OTHER ==
--- OUTSIDE RECORDS SUMMARY | 2021-09-06 17:05 | XMS REPORT | Continuity of Care Document ---
:1935 Author Organization [facility] t Address [address] [place] [address] Care Team Providers Name Role Phone Pcp, Does Not Have A Primary Care Physician CIRILO Attending Clinician Unavailable Cirilo RASHID Attending Clinician Doctor Unassigned, Name Attending Clinician Unavailable SIMÓN Attending Clinician Unavailable Tim IYER Attending Clinician Unavailable SIMÓN Admitting Clinician Unavailable Tim IYER Admitting Clinician Unavailable Payers Payer Name Policy Type Policy Number Effective Date Expiration Date S ource Problems Condition Condition Condition Status Onset Resolution Last Treating Co mments Source Name Details Category Date Date Treatment Clinician Date BECKMAN BECKMAN Disease Active 2018-09 Univers (dyspnea (dyspnea 0-17 ity of on on 00:00: [place] exertion) exertion) 00 [facility] Acute on Acute on Disease Active 2018-09 Unive rs chronic chronic 0-17 [place] 00 Medical (congestiv (congestiv Br anch e heart e heart failure), failure), NYHA class NYHA class 3 3 Longstandi Longstandi Disease Active 2018-09 U nivers ng ng 0-17 ity [place] persistent [place] atrial atrial 00 Medical fibrillati fibrillati Br anch on on Essential Essential Disease Active 2018-09 Uni vers hypertensi hypertensi 0-17 it y of on on 00:00: [place] [address] [place] [address] Branch RAHEL RAHEL Disease Active 2018-09 Univers (obstructi (obstructi 0-17 it y of ve sleep ve sleep 00:00: [place] apnea) apnea) 00 Medical Branch CHF CHF Disease Active 2018-09 Univers (congestiv (congestiv 0-16 it y of e heart e heart 00:00: [place] failure) failure) 00 Medica l Branch Elevated Elevated Disease Active Unive rs TSH TSH 8-16 ity of 00:00: [place] 00 Medical Branch Type 2 Type 2 Disease Active Univers diabetes diabetes 5-10 ity of mellitus mellitus 00:00: [place] with stage with stage 00 Me dical 3 chronic 3 chronic Bran ch kidney kidney disease, disease, with with long-term long-term current current use of use of insulin insulin CKD CKD Disease Active Univers (chronic (chronic 6-21 ity of kidney kidney 00:00: [place] disease) disease) 00 Medica l stage 3, stage 3, Branch GFR 30-59 GFR 30-59 ml/min ml/min Vitamin D Vitamin D Disease Active Uni vers deficiency deficiency 3-16 it y of 00:00: [place] 00 Medical Branch HLD HLD Disease Active Univers (hyperlipi (hyperlipi 3-16 it y of demia) demia) 00:00: [place] 00 Medical Branch 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 00:00: [place] with with 00 Medical neuropathy neuropathy Br anch OTIS (acute OTIS (acute Disease Active 2014-09 U nivers kidney kidney 2-16 ity of injury) injury) 00:00: [place] 00 Medical Branch Neuropathy Neuropathy Disease Active 2014-09 U nivers 2-16 ity of 00:00: [place] 00 Medical Branch Pain, Pain, Diagnosis Active [facility], [facility] Right Right Diagnosis Active [facility] sciatica sciatica [facility] Allergies, Adverse Reactions, Alerts Allergy Allergy Status Severity Reaction(s) Onset Inactive Treating Comm ents Source Name Type Date Date Clinician Iodine Propensi Active Other - See 2014-09 [facility] Uni vers And ty to comments 2-16 issue ity of Iodide adverse 00:00: [place] Containi reaction 00 Medica l ng s Branch Products IODINE Drug Active Other-Cmnt 2014-09 Univer s AND Class 2-16 ity of IODIDE 00:00: [place] CONTAINI 00 Medical NG Branch PRODUCTS Social History Social Habit Start Date Stop Date Quantity Comments Source Exposure to Not sure [facility] SARS-CoV-2 (event) Medica l Branch Tobacco use and 2020-09-13 2020-09-13 Never used [facility] exposure 00:00:00 00:00:00 Medical Branch Alcohol intake 2020-09-13 2020-09-13 0 /d [facility] 00:00:00 00:00:00 Medical Branch Sex [birth year] [facility] 00:00:00 00:00:00 Medical Branch Smoking Status Start Date Stop Date Source Former smoker 2020-09-13 00:00:00 2020-09-13 00:00:00 [facility] Medical Branch Medications Ordered Filled Start Stop Current Ordering Indication Dosage Frequency Signature Comments Components Source Medication Medication Date Date Medication? Clinician (SIG) Name Name amiodarone Yes 200mg Take 1 Univ ers 200 mg 7-08 tablet by ity of tablet 00:00: mouth [place] 00 daily. Medical Branch amiodarone Yes 200mg Take 1 Univ ers 200 mg 7-08 tablet by ity of tablet 00:00: mouth [place] 00 daily. Medical Branch amiodarone Yes 200mg Take 1 Univ ers 200 mg 7-08 tablet by ity of tablet 00:00: mouth [place] 00 daily. Medical Branch amiodarone Yes 200mg Take 1 Univ ers 200 mg 7-08 tablet by ity of tablet 00:00: mouth [place] 00 daily. Medical Branch amiodarone Yes 200mg Take 1 Univ ers 200 mg 7-08 tablet by ity of tablet 00:00: mouth [place] 00 daily. Medical Branch amiodarone Yes 200mg Take 1 Univ ers 200 mg 1-29 tablet by ity of tablet 00:00: mouth [place] 00 daily. Medical Branch amiodarone 2020- No 200mg Take 1 Uni vers 200 mg 1-29 07-08 tablet by ity of tablet 00:00: 00:00 mouth [place] 00 :00 daily. Medical Branch furosemide 2019-09 Yes 100mg Take 100 Un debby (LASIX) 80 2-22 mg by ity of mg tablet 20:45: mouth [place] 04 daily. Medical Branch metOLazone 2019-09 Yes 10mg Take 10 mg U nivers 10 mg 2-22 by mouth ity of tablet 20:45: daily. Medical Branch POTASSIUM 2019-09 Yes 2 (two) Unive rs CHLORIDE, 2-22 times ity of BULK, MISC 20:45: daily. [facility] Branch furosemide 2019-09 Yes 100mg Take 100 Un debby (LASIX) 80 2-22 mg by ity of mg tablet 20:45: mouth [place] 04 daily. Medical Branch metOLazone 2019-09 Yes 10mg Take 10 mg U nivers 10 mg 2-22 by mouth ity of tablet 20:45: daily. [facility] POTASSIUM 2019-09 Yes 2 (two) Unive rs CHLORIDE, 2-22 times ity of BULK, MISC 20:45: daily. [facility] Branch furosemide 2019-09 Yes 100mg Take 100 Un debby (LASIX) 80 2-22 mg by ity of mg tablet 20:45: mouth 04 daily. Medical Branch metOLazone 2019-09 Yes 10mg Take 10 mg U nivers 10 mg 2-22 by mouth ity of tablet 20:45: daily. [facility] POTASSIUM 2019-09 Yes 2 (two) Unive rs CHLORIDE, 2-22 times ity of BULK, MISC 20:45: daily. Medical Branch furosemide 2019-09 Yes 100mg Take 100 Un [place] (LASIX) 80 2-22 mg by ity of mg tablet 20:45: mouth [place] 04 daily. Medical Branch metOLazone 2019-09 Yes 10mg Take 10 mg U nivers 10 mg 2-22 by mouth ity of tablet 20:45: daily. [facility] Branch POTASSIUM 2019-09 Yes 2 (two) Unive rs CHLORIDE, 2-22 times ity of BULK, MISC 20:45: daily. Medical Branch furosemide 2019-09 Yes 100mg Take 100 Un [place] (LASIX) 80 2-22 mg by ity of mg tablet 20:45: mouth [place] 04 daily. Medical Branch metOLazone 2019-09 Yes 10mg Take 10 mg U nivers 10 mg 2-22 by mouth ity of tablet 20:45: daily. [facility] POTASSIUM 2019-09 Yes 2 (two) Unive rs CHLORIDE, 2-22 times ity of BULK, MISC 20:45: daily. Medical Branch furosemide 2019-09 Yes 100mg Take 100 Un [place] (LASIX) 80 2-22 mg by ity of mg tablet 20:45: mouth daily. Medical Branch metOLazone 2019-09 Yes 10mg Take 10 mg U nivers 10 mg 2-22 by mouth ity of tablet 20:45: daily. [place] [address] Medical Branch POTASSIUM 2019-09 Yes 2 (two) Unive rs CHLORIDE, 2-22 times ity of BULK, MISC 20:45: daily. Medical Branch furosemide 2019-09 Yes 100mg Take 100 Un [place] (LASIX) 80 2-22 mg by ity of mg tablet 20:45: mouth daily. Medical Branch metOLazone 2019-09 Yes 10mg Take 10 mg U nivers 10 mg 2-22 by mouth ity of tablet 20:45: daily. [address] POTASSIUM 2019-09 Yes 2 (two) Unive rs CHLORIDE, 2-22 times ity of BULK, MISC 20:45: daily. Medical Branch furosemide 2019-09 Yes 100mg Take 100 Un [place] (LASIX) 80 2-22 mg by ity of mg tablet 20:45: mouth daily. Medical Branch metOLazone 2019-09 Yes 10mg Take 10 mg U nivers 10 mg 2-22 by mouth ity of tablet 20:45: daily. [address] [place] [address] POTASSIUM 2019-09 Yes 2 (two) Unive rs CHLORIDE, 2-22 times ity of BULK, MISC 20:45: daily. [address] Branch levothyroxi 2019-09 Yes Take by Un debby ne 50 mcg 2-22 mouth ity of tablet 20:41: daily. [address] Branch levothyroxi 2019-09 Yes Take by Un debby ne 50 mcg 2-22 mouth ity of tablet 20:41: daily. [address] Branch levothyroxi 2019-09 Yes Take by Un [place] ne 50 mcg 2-22 mouth ity of tablet 20:41: daily. [address] levothyroxi 2019-09 Yes Take by Un [place] ne 50 mcg 2-22 mouth ity of tablet 20:41: daily. [address] levothyroxi 2019-09 Yes Take by Un [place] ne 50 mcg 2-22 mouth ity of tablet 20:41: daily. [address] Branch levothyroxi 2019- Yes Take by Un [place] ne 50 mcg 2-22 mouth ity of tablet 20:41: daily. [address] levothyroxi 2019-09 Yes Take by Un [place] ne 50 mcg 2-22 mouth ity of tablet 20:41: daily. [address] levothyroxi 2019- Yes Take by Un [place] ne 50 mcg 2-22 mouth ity of tablet 20:41: daily. [address] carvedilol 2019- Yes 25mg Take 25 mg U nivers (COREG) 25 2-22 by mouth 2 ity of mg tablet 20:41: (two) [place] 30 times Medical daily with Branch meals. carvedilol 2019-09 Yes 25mg Take 25 mg U nivers (COREG) 25 2-22 by mouth 2 ity of mg tablet 20:41: (two) [place] 30 times Medical daily with Branch meals. carvedilol 2019-09 Yes 25mg Take 25 mg U nivers (COREG) 25 2-22 by mouth 2 ity of mg tablet 20:41: (two) [place] 30 times Medical daily with Branch meals. carvedilol 2019-09 Yes 25mg Take 25 mg U nivers (COREG) 25 2-22 by mouth 2 ity of mg tablet 20:41: (two) [place] 30 times Medical daily with Branch meals. carvedilol 2019-09 Yes 25mg Take 25 mg U nivers (COREG) 25 2-22 by mouth 2 ity of mg tablet 20:41: (two) [place] 30 times Medical daily with Branch meals. carvedilol 2019- Yes 25mg Take 25 mg U nivers (COREG) 25 2-22 by mouth 2 ity of mg tablet 20:41: (two) [place] 30 times Medical daily with Branch meals. carvedilol 2019- Yes 25mg Take 25 mg U nivers (COREG) 25 2-22 by mouth 2 ity of mg tablet 20:41: (two) [place] 30 times Medical daily with Branch meals. carvedilol 2019- Yes 25mg Take 25 mg U nivers (COREG) 25 2-22 by mouth 2 ity of mg tablet 20:41: (two) [place] 30 times Medical daily with Branch meals. furosemide 2019- Yes 100mg Take 100 Un [place] (LASIX) 80 2-22 mg by ity of mg tablet 14:45: mouth daily. Medical Branch metOLazone 2019-09 Yes 10mg Take 10 mg U nivers 10 mg 2-22 by mouth ity of tablet 14:45: daily. [facility] Branch POTASSIUM 2019-09 Yes 2 (two) Unive rs CHLORIDE, 2-22 times ity of BULK, MISC 14:45: daily. [facility] furosemide 2019-09 Yes 100mg Take 100 Un debby (LASIX) 80 2-22 mg by ity of mg tablet 14:45: mouth daily. Medical Branch metOLazone 2019-09 Yes 10mg Take 10 mg U nivers 10 mg 2-22 by mouth ity of tablet 14:45: daily. [facility] POTASSIUM 2019-09 Yes 2 (two) Unive rs CHLORIDE, 2-22 times ity of BULK, MISC 14:45: daily. [facility] levothyroxi 2019-09 Yes Take by Un debby ne 50 mcg 2-22 mouth ity of tablet 14:41: daily. [place] [facility] levothyroxi 2019-09 Yes Take by Un [place] ne 50 mcg 2-22 mouth ity of tablet 14:41: daily. [address] carvedilol 2019-09 Yes 25mg Take 25 mg U nivers (COREG) 25 2-22 by mouth 2 ity of mg tablet 14:41: (two) [place] 30 times Medical daily with Branch meals. carvedilol 2019-09 Yes 25mg Take 25 mg U nivers (COREG) 25 2-22 by mouth 2 ity of mg tablet 14:41: (two) [place] 30 times Medical daily with Branch meals. spironolact 2020-0 Yes Univer s one 25 mg 6-01 ity of tablet 00:00: [facility] spironolact 2020-0 Yes Univer s one 25 mg 6-01 ity of tablet 00:00: [facility] spironolact 2020-0 Yes Univer s one 25 mg 6-01 ity of tablet 00:00: [facility] spironolact 2020-0 Yes Univer s one 25 mg 6-01 ity of tablet 00:00: [facility] spironolact 2020-0 Yes Univer s one 25 mg 6-01 ity of tablet 00:00: [place] Medical Branch spironolact 2020-0 Yes Univer s one 25 mg 6-01 ity of tablet 00:00: [place] Medical Branch spironolact 2020-0 Yes Univer s one 25 mg 6-01 ity of tablet 00:00: [place] Medical Branch spironolact 2020-0 Yes Univer s one 25 mg 6-01 ity of tablet 00:00: [place] Medical Branch spironolact 2020-0 Yes Univer s one 25 mg 6-01 ity of tablet 00:00: [place] Medical Branch spironolact 2020-0 Yes Univer s one 25 mg 6-01 ity of tablet 00:00: [place] [address] Medical Branch GABAPENTIN 2019-1 Yes [id number] TAKE 1 U nivers 300 mg 2-19 CAPSULE AT ity of capsule 00:00: BEDTIME [place] [address] Medical Branch GABAPENTIN 2019-1 Yes [id number] TAKE 1 U nivers 300 mg 2-19 CAPSULE AT ity of capsule 00:00: BEDTIME [place] [address] Medical Branch GABAPENTIN 2019-1 Yes [id number] TAKE 1 U nivers 300 mg 2-19 CAPSULE AT ity of capsule 00:00: BEDTIME [place] [address] Medical Branch GABAPENTIN 2019-1 Yes [id number] TAKE 1 U nivers 300 mg 2-19 CAPSULE AT ity of capsule 00:00: BEDTIME [place] [address] Medical Branch GABAPENTIN 2019-1 Yes [id number] TAKE 1 U nivers 300 mg 2-19 CAPSULE AT ity of capsule 00:00: BEDTIME [place] [address] Medical Branch GABAPENTIN 2019-1 Yes [id number] TAKE 1 U nivers 300 mg 2-19 CAPSULE AT ity of capsule 00:00: BEDTIME [place] [address] Medical Branch GABAPENTIN 2019-1 Yes [id number] TAKE 1 U nivers 300 mg 2-19 CAPSULE AT ity of capsule 00:00: BEDTIME [place] [address] Medical Branch GABAPENTIN 2019-1 Yes [id number] TAKE 1 U nivers 300 mg 2-19 CAPSULE AT ity of capsule 00:00: BEDTIME [place] [address] Medical Branch GABAPENTIN 2019-1 Yes [id number] TAKE 1 U nivers 300 mg 2-19 CAPSULE AT ity of capsule 00:00: BEDTIME [place] [address] Medical Branch GABAPENTIN 2019-1 Yes [id number] TAKE 1 U nivers 300 mg 2-19 CAPSULE AT ity of capsule 00:00: BEDTIME [place] 00 Medical Branch GABAPENTIN 2019-1 Yes [id number] TAKE 1 U nivers 300 mg 2-19 CAPSULE AT ity of capsule 00:00: BEDTIME [place] 00 Medical Branch GABAPENTIN 2019-1 Yes [id number] TAKE 1 U nivers 300 mg 2-19 CAPSULE AT ity of capsule 00:00: BEDTIME [place] Medical Branch GABAPENTIN 2019-1 Yes [id number] TAKE 1 U nivers 300 mg 2-19 CAPSULE AT ity of capsule 00:00: BEDTIME [place] Medical Branch GABAPENTIN 2019-1 Yes [id number] TAKE 1 U nivers 300 mg 2-19 CAPSULE AT ity of capsule 00:00: BEDTIME [place] 00 Medical Branch GABAPENTIN 2019-1 Yes [id number] TAKE 1 U nivers 300 mg 2-19 CAPSULE AT ity of capsule 00:00: BEDTIME [place] Medical Branch ethacrynic 2019-1 Yes [id number] 50mg Take 2 Univers acid 25 mg 2-03 02 tablets by ity of tablet 00:00: mouth [place] 00 every Medical morning Branch and evening. ethacrynic 2019-1 Yes [id number] 50mg Take 2 Univers acid 25 mg 2-03 02 tablets by ity of tablet 00:00: mouth [place] 00 every Medical morning Branch and evening. ethacrynic 2019-1 Yes [id number] 50mg Take 2 Univers acid 25 mg 2-03 02 tablets by ity of tablet 00:00: mouth [place] 00 every Medical morning Branch and evening. ethacrynic 2019-1 Yes [id number] 50mg Take 2 Univers acid 25 mg 2-03 02 tablets by ity of tablet 00:00: mouth [place] 00 every Medical morning Branch and evening. ethacrynic 2019-1 Yes [id number] 50mg Take 2 Univers acid 25 mg 2-03 02 tablets by ity of tablet 00:00: mouth [place] 00 every Medical morning Branch and evening. ethacrynic 2019-1 Yes [id number] 50mg Take 2 Univers acid 25 mg 2-03 02 tablets by ity of tablet 00:00: mouth [place] 00 every Medical morning Branch and evening. ethacrynic 2019-1 Yes [id number] 50mg Take 2 Univers acid 25 mg 2-03 02 tablets by ity of tablet 00:00: mouth [place] 00 every Medical morning Branch and evening. ethacrynic 2019-1 Yes [id number] 50mg Take 2 Univers acid 25 mg 2-03 02 tablets by ity of tablet 00:00: mouth [place] 00 every Medical morning Branch and evening. ethacrynic 2018-09 Yes [id number] 50mg Take 2 Univers acid 25 mg 2-03 02 tablets by ity of tablet 00:00: mouth [place] 00 every Medical morning Branch and evening. ethacrynic 2018-09 Yes [id number] 50mg Take 2 Univers acid 25 mg 2-03 02 tablets by ity of tablet 00:00: mouth [place] 00 every Medical morning Branch and evening. ethacrynic 2018-09 Yes [id number] 50mg Take 2 Univers acid 25 mg 2-03 02 tablets by ity of tablet 00:00: mouth [place] 00 every Medical morning Branch and evening. ethacrynic 2018-09 Yes [id number] 50mg Take 2 Univers acid 25 mg 2-03 02 tablets by ity of tablet 00:00: mouth [place] 00 every Medical morning Branch and evening. ethacrynic 2018-09 Yes [id number] 50mg Take 2 Univers acid 25 mg 2-03 02 tablets by ity of tablet 00:00: mouth [place] 00 every Medical morning Branch and evening. ethacrynic 2018-09 Yes [id number] 50mg Take 2 Univers acid 25 mg 2-03 02 tablets by ity of tablet 00:00: mouth [place] 00 every Medical morning Branch and evening. ethacrynic 2018-09 Yes [id number] 50mg Take 2 Univers acid 25 mg 2-03 02 tablets by ity of tablet 00:00: mouth [place] 00 every Medical morning Branch and evening. carvedilol 2018-09 Yes 25mg Take 25 mg U nivers (COREG) 25 0-29 by mouth 2 ity of mg tablet 18:56: (two) [place] [address] times Medical daily with Branch meals. Levothyroxi 2018- Yes Take by Un debby ne 25 mcg 0-29 mouth. ity of capsule 18:56: [place] [address] Medical Branch carvedilol 2018- Yes 25mg Take 25 mg U nivers (COREG) 25 0-29 by mouth 2 ity of mg tablet 18:56: (two) [place] 38 times Medical daily with Branch meals. Levothyroxi 2018- Yes Take by Un [place] ne 25 mcg 0-29 mouth. ity of capsule 18:56: [place] 38 Medical Branch carvedilol 2018-09 Yes 25mg Take 25 mg U nivers (COREG) 25 0-29 by mouth 2 ity of mg tablet 18:56: (two) [place] [address] times Medical daily with Branch meals. Levothyroxi 2018-09 Yes Take by Un [place] ne 25 mcg 0-29 mouth. ity of capsule 18:56: [place] [address] Medical Branch carvedilol 2018-09 Yes 25mg Take 25 mg U nivers (COREG) 25 0-29 by mouth 2 ity of mg tablet 18:56: (two) [place] [address] times Medical daily with Branch meals. Levothyroxi 2018-09 Yes Take by Un [place] ne 25 mcg 0-29 mouth. ity of capsule 18:56: [place] [address] Medical Branch carvedilol 2018-09 Yes 25mg Take 25 mg U nivers (COREG) 25 0-29 by mouth 2 ity of mg tablet 18:56: (two) [place] [address] times Medical daily with Branch meals. Levothyroxi 2018-09 Yes Take by Un [place] ne 25 mcg 0-29 mouth. ity of capsule 18:56: [place] [address] Medical Branch tamsulosin 2018-0 Yes .4mg Take 1 Unive rs 0.4 mg 24 7-11 capsule by ity of hr capsule 00:00: mouth [place] 00 daily. Medical Branch tamsulosin 2019-0 Yes .4mg Take 1 Unive rs 0.4 mg 24 7-11 capsule by ity of hr capsule 00:00: mouth [place] 00 daily. Medical Branch tamsulosin 2019-0 Yes .4mg Take 1 Unive rs 0.4 mg 24 7-11 capsule by ity of hr capsule 00:00: mouth [place] 00 daily. Medical Branch tamsulosin 2019-0 Yes .4mg Take 1 Unive rs 0.4 mg 24 7-11 capsule by ity of hr capsule 00:00: mouth [place] 00 daily. Medical Branch tamsulosin 2019-0 Yes .4mg Take 1 Unive rs 0.4 mg 24 7-11 capsule by ity of hr capsule 00:00: mouth [place] 00 daily. Medical Branch tamsulosin 2019-0 Yes .4mg Take 1 Unive rs 0.4 mg 24 7-11 capsule by ity of hr capsule 00:00: mouth [place] 00 daily. Medical Branch tamsulosin 2019-0 Yes .4mg Take 1 Unive rs 0.4 mg 24 7-11 capsule by ity of hr capsule 00:00: mouth [place] 00 daily. Medical Branch tamsulosin 2019-0 Yes .4mg Take 1 Unive rs 0.4 mg 24 7-11 capsule by ity of hr capsule 00:00: mouth [place] 00 daily. Medical Branch tamsulosin 2019-0 Yes .4mg Take 1 Unive rs 0.4 mg 24 7-11 capsule by ity of hr capsule 00:00: mouth [place] 00 daily. Medical Branch tamsulosin 2019-0 Yes .4mg Take 1 Unive rs 0.4 mg 24 7-11 capsule by ity of hr capsule 00:00: mouth [place] 00 daily. Medical Branch tamsulosin 2019-0 Yes .4mg Take 1 Unive rs 0.4 mg 24 7-11 capsule by ity of hr capsule 00:00: mouth [place] 00 daily. Medical Branch tamsulosin 2019-0 Yes .4mg Take 1 Unive rs 0.4 mg 24 7-11 capsule by ity of hr capsule 00:00: mouth [place] 00 daily. Medical Branch tamsulosin 2019-0 Yes .4mg Take 1 Unive rs 0.4 mg 24 7-11 capsule by ity of hr capsule 00:00: mouth [place] 00 daily. Medical Branch tamsulosin 2019-0 Yes .4mg Take 1 Unive rs 0.4 mg 24 7-11 capsule by ity of hr capsule 00:00: mouth [place] 00 daily. Medical Branch tamsulosin 2019-0 Yes .4mg Take 1 Unive rs 0.4 mg 24 7-11 capsule by ity of hr capsule 00:00: mouth [place] 00 daily. Medical Branch JANUVIA 50 2019-0 Yes TAKE 1 Unive rs mg tablet 6-25 TABLET ity of 00:00: DAILY [place] 00 Medical Branch JANUVIA 50 2019-0 Yes TAKE 1 Unive rs mg tablet 6-25 TABLET ity of 00:00: DAILY 00 Medical Branch JANUVIA 50 2019-0 Yes TAKE 1 Unive rs mg tablet 6-25 TABLET ity of 00:00: DAILY [place] 00 Medical Branch JANUVIA 50 2019-0 Yes TAKE 1 Unive rs mg tablet 6-25 TABLET ity of 00:00: DAILY 00 Medical Branch JANUVIA 50 2019-0 Yes TAKE 1 Unive rs mg tablet 6-25 TABLET ity of 00:00: DAILY [place] [id number] 0 Yes TAKE 1 Unive rs mg tablet 6-25 TABLET ity of 00:00: DAILY [place] [id number] 0 Yes TAKE 1 Unive rs mg tablet 6-25 TABLET ity of 00:00: DAILY [place] [id number] 0 Yes TAKE 1 Unive rs mg tablet 6-25 TABLET ity of 00:00: DAILY [place] [id number] 0 Yes TAKE 1 Unive rs mg tablet 6-25 TABLET ity of 00:00: DAILY [place] [id number] 0 Yes TAKE 1 Unive rs mg tablet 6-25 TABLET ity of 00:00: DAILY [place] [id number] 0 Yes TAKE 1 Unive rs mg tablet 6-25 TABLET ity of 00:00: DAILY [place] [id number] 0 Yes TAKE 1 Unive rs mg tablet 6-25 TABLET ity of 00:00: DAILY [place] [id number] 0 Yes TAKE 1 Unive rs mg tablet 6-25 TABLET ity of 00:00: DAILY [place] [address] 0 Yes TAKE 1 Unive rs mg tablet 6-25 TABLET ity of 00:00: DAILY [place] [id number] 0 Yes TAKE 1 Unive rs mg tablet 6-25 TABLET ity of 00:00: DAILY [place] [facility] Insulin 2017- Yes [id number] 20U inject 20 U nivers Glargine 1-06 Units ity of (LANTUS 00:00: under the [place] [facility] 00 skin Medical U-100 daily. Branch INSULIN) 100 unit/mL (3 mL) injection insulin 2017-09 Yes [id number] 10U inject 10 U nivers aspart 1-06 Units ity of U-100 00:00: under the [place] (NOVOLOG 00 skin 2 Medical FLEXPEN (two) Branch U-100 times INSULIN) daily 100 unit/mL before injection breakfast and dinner. Insulin 2017-09 Yes [id number] 20U inject 20 U nivers Glargine 1-06 Units ity of (LANTUS 00:00: under the [place] [facility] 00 skin Medical U-100 daily. Branch INSULIN) 100 unit/mL (3 mL) injection insulin 2017-09 Yes [id number] 10U inject 10 U nivers aspart 1-06 Units ity of U-100 00:00: under the [place] (NOVOLOG 00 skin 2 Medical FLEXPEN (two) Branch U-100 times INSULIN) daily 100 unit/mL before injection breakfast and dinner. Insulin 2017-09 Yes [id number] 20U inject 20 U nivers Glargine 1-06 Units ity of (LANTUS 00:00: under the [place] [facility] 00 skin Medical U-100 daily. Branch INSULIN) 100 unit/mL (3 mL) injection insulin 2017-09 Yes [id number] 10U inject 10 U nivers aspart 1-06 Units ity of U-100 00:00: under the [place] (NOVOLOG 00 skin 2 Medical FLEXPEN (two) Branch U-100 times INSULIN) daily 100 unit/mL before injection breakfast and dinner. Insulin 2017-09 Yes [id number] 20U inject 20 U nivers Glargine 1-06 Units ity of (LANTUS 00:00: under the [place] [address] skin Medical U-100 daily. Branch INSULIN) 100 unit/mL (3 mL) injection insulin 2017-09 Yes [id number] 10U inject 10 U nivers aspart 1-06 Units ity of U-100 00:00: under the [place] (NOVOLOG 00 skin 2 Medical FLEXPEN (two) Branch U-100 times INSULIN) daily 100 unit/mL before injection breakfast and dinner. Insulin 2017-09 Yes [id number] 20U inject 20 U nivers Glargine 1-06 Units ity of (LANTUS 00:00: under the [place] [address] skin Medical U-100 daily. Branch INSULIN) 100 unit/mL (3 mL) injection insulin 2017-09 Yes [id number] 10U inject 10 U nivers aspart 1-06 Units ity of U-100 00:00: under the [place] (NOVOLOG 00 skin 2 Medical FLEXPEN (two) Branch U-100 times INSULIN) daily 100 unit/mL before injection breakfast and dinner. Insulin 2017-09 Yes [id number] 20U inject 20 U nivers Glargine 1-06 Units ity of (LANTUS 00:00: under the [place] SOL[place] 00 skin Medical U-100 daily. Branch INSULIN) 100 unit/mL (3 mL) injection insulin 2017-09 Yes [id number] 10U inject 10 U nivers aspart 1-06 Units ity of U-100 00:00: under the [place] (NOVOLOG 00 skin 2 Medical FLEXPEN (two) Branch U-100 times INSULIN) daily 100 unit/mL before injection breakfast and dinner. Insulin 2017-09 Yes [id number] 20U inject 20 U nivers Glargine 1-06 Units ity of (LANT[place] 00:00: under the [place] 00 skin Medical U-100 daily. Branch INSULIN) 100 unit/mL (3 mL) injection insulin 2017-09 Yes [id number] 10U inject 10 U nivers aspart 1-06 Units ity of U-100 00:00: under the [place] (NOVOLOG 00 skin 2 Medical FLEXPEN (two) Branch U-100 times INSULIN) daily 100 unit/mL before injection breakfast and dinner. Insulin 2017-09 Yes [id number] 20U inject 20 U nivers Glargine 1-06 Units ity of ([place]US 00:00: under the [place] [address] skin Medical U-100 daily. Branch INSULIN) 100 unit/mL (3 mL) injection Insulin 2017-09 Yes [id number] 20U inject 20 U nivers Glargine 1-06 Units ity of ([place]US 00:00: under the [place] [address] skin Medical U-100 daily. Branch INSULIN) 100 unit/mL (3 mL) injection insulin 2017-09 Yes [id number] 10U inject 10 U nivers aspart 1-06 Units ity of U-100 00:00: under the [place] (NOVOLOG 00 skin 2 Medical FLEXPEN (two) Branch U-100 times INSULIN) daily 100 unit/mL before injection breakfast and dinner. insulin 2017-09 Yes [id number] 10U inject 10 U nivers aspart 1-06 Units ity of U-100 00:00: under the [place] (NOVOLOG 00 skin 2 Medical FLEXPEN (two) Branch U-100 times INSULIN) daily 100 unit/mL before injection breakfast and dinner. Insulin 2017-09 Yes [id number] 20U inject 20 U nivers Glargine 1-06 Units ity of (LANTUS 00:00: under the [place] 00 skin Medical U-100 daily. Branch INSULIN) 100 unit/mL (3 mL) injection insulin 2017-09 Yes [id number] 10U inject 10 U nivers aspart 1-06 Units ity of U-100 00:00: under the [place] (NOVOLOG 00 skin 2 Medical FLEXPEN (two) Branch U-100 times INSULIN) daily 100 unit/mL before injection breakfast and dinner. Insulin 2017-09 Yes [id number] 20U inject 20 U nivers Glargine 1-06 Units ity of (LANTUS 00:00: under the [place] 00 skin Medical U-100 daily. Branch INSULIN) 100 unit/mL (3 mL) injection insulin 2017-09 Yes [id number] 10U inject 10 U nivers aspart 1-06 Units ity of U-100 00:00: under the [place] (NOVOLOG 00 skin 2 Medical FLEXPEN (two) Branch U-100 times INSULIN) daily 100 unit/mL before injection breakfast and dinner. Insulin 2017-09 Yes [id number] 20U inject 20 U nivers Glargine 1-06 Units ity of (LANTUS 00:00: under the [place] [address] skin Medical U-100 daily. Branch INSULIN) 100 unit/mL (3 mL) injection insulin 2017-09 Yes [id number] 10U inject 10 U nivers aspart 1-06 Units ity of U-100 00:00: under the [place] (NOVOLOG 00 skin 2 Medical FLEXPEN (two) Branch U-100 times INSULIN) daily 100 unit/mL before injection breakfast and dinner. Insulin 2017-09 Yes [id number] 20U inject 20 U nivers Glargine 1-06 Units ity of (LANTUS 00:00: under the [place] [address] skin Medical U-100 daily. Branch INSULIN) 100 unit/mL (3 mL) injection insulin 2017-09 Yes [id number] 10U inject 10 U nivers aspart 1-06 Units ity of U-100 00:00: under the [place] (NOVOLOG 00 skin 2 Medical FLEXPEN (two) Branch U-100 times INSULIN) daily 100 unit/mL before injection breakfast and dinner. Insulin 2017-09 Yes [id number] 20U inject 20 U nivers Glargine 1-06 Units ity of (LANTUS 00:00: under the [place] 00 skin Medical U-100 daily. Branch INSULIN) 100 unit/mL (3 mL) injection insulin 2017-09 Yes [id number] 10U inject 10 U nivers aspart 1-06 Units ity of U-100 00:00: under the [place] (NOVOLOG 00 skin 2 Medical FLEXPEN (two) Branch U-100 times INSULIN) daily 100 unit/mL before injection breakfast and dinner. Insulin 2017-09 Yes [id number] 20U inject 20 U nivers Glargine 1-06 Units ity of (LANTUS 00:00: under the [place] SOLOST[place] 00 skin Medical U-100 daily. Branch INSULIN) 100 unit/mL (3 mL) injection insulin 2017-09 Yes [id number] 10U inject 10 U nivers aspart 1-06 Units ity of U-100 00:00: under the [place] (NOVOLOG 00 skin 2 Medical FLEXPEN (two) Branch U-100 times INSULIN) daily 100 unit/mL before injection breakfast and dinner. HydrALAZINE HydrALAZINE Yes Michael [address] [facility] HCl HCl 8 [place] with food [facility] ATORVASTATI Yes [id number] TAKE 1 Univers N 40 mg 6-15 TABLET AT ity of tablet 00:00: BEDTIME [place] [facility] ATORVASTATI Yes [id number] TAKE 1 Univers N 40 mg 6-15 TABLET AT ity of tablet 00:00: BEDTIME [place] [facility] ATORVASTATI Yes [id number] TAKE 1 Univers N 40 mg 6-15 TABLET AT ity of tablet 00:00: BEDTIME [place] [facility] ATORVASTATI Yes [id number] TAKE 1 Univers N 40 mg 6-15 TABLET AT ity of tablet 00:00: BEDTIME [place] [facility] ATORVASTATI Yes [id number] TAKE 1 Univers N 40 mg 6-15 TABLET AT ity of tablet 00:00: BEDTIME [place] [facility] ATORVASTATI Yes [id number] TAKE 1 Univers N 40 mg 6-15 TABLET AT ity of tablet 00:00: BEDTIME [address] ATORVASTATI Yes [id number] TAKE 1 Univers N 40 mg 6-15 TABLET AT ity of tablet 00:00: BEDTIME [address] ATORVASTATI Yes [id number] TAKE 1 Univers N 40 mg 6-15 TABLET AT ity of tablet 00:00: BEDTIME [place] [facility] Yes [id number] TAKE 1 Univers N 40 mg 6-15 TABLET AT ity of tablet 00:00: BEDTIME [place] [facility] 2018-0 Yes [id number] TAKE 1 Univers N 40 mg 6-15 TABLET AT ity of tablet 00:00: BEDTIME [place] [facility] 2017-0 Yes [id number] TAKE 1 Univers N 40 mg 6-15 TABLET AT ity of tablet 00:00: BEDTIME [place] [facility] 2017-0 Yes [id number] TAKE 1 Univers N 40 mg 6-15 TABLET AT ity of tablet 00:00: BEDTIME [place] [facility] 2017-0 Yes [id number] TAKE 1 Univers N 40 mg 6-15 TABLET AT ity of tablet 00:00: BEDTIME [place] [facility] 2017-0 Yes [id number] TAKE 1 Univers N 40 mg 6-15 TABLET AT ity of tablet 00:00: BEDTIME [place] [facility] 2017-0 Yes [id number] TAKE 1 Univers N 40 mg 6-15 TABLET AT ity of tablet 00:00: BEDTIME [place] [facility] omeprazole 2017-0 Yes TAKE ONE Uni vers 20 mg 9-23 (1) ity of capsule 00:[place] Medical DAILY. [place] omeprazole 2016-0 Yes TAKE ONE Uni vers 20 mg 9-23 (1) ity of capsule 00:00: [place] Medical DAILY. [place] omeprazole 2016-0 Yes TAKE ONE Uni vers 20 mg 9-23 (1) ity of capsule 00:00: [place] BY [place]OUTH Medical DAILY. Branch omeprazole 2017-0 Yes TAKE ONE Uni vers 20 mg 9-23 (1) ity of capsule 00:00: [place] BY MOUTH Medical DAILY. [place] omeprazole 2016-0 Yes TAKE ONE Uni vers 20 mg 9-23 (1) ity of capsule 00:00: [place] BY MOUTH Medical DAILY. [place] omeprazole 2016-0 Yes TAKE ONE Uni vers 20 mg 9-23 (1) ity of capsule 00:00: [place] BY MOUTH Medical DAILY. Branch omeprazole Yes TAKE ONE Uni vers 20 mg 9-23 (1) ity of capsule 00:00: [place] BY MOUTH Medical DAILY. Branch omeprazole Yes TAKE ONE Uni vers 20 mg 9-23 (1) ity of capsule 00:00: [place] BY MOUTH Medical DAILY. Branch omeprazole Yes TAKE ONE Uni vers 20 mg 9-23 (1) ity of capsule 00:00: [place] 00 BY MOUTH Medical DAILY. Branch omeprazole Yes TAKE ONE Uni vers 20 mg 9-23 (1) ity of capsule 00:00: [place] BY MOUTH Medical DAILY. [place] omeprazole Yes TAKE ONE Uni vers 20 mg 9-23 (1) ity of capsule 00:00: [place] BY MOUTH Medical DAILY. [place] omeprazole Yes TAKE ONE Uni vers 20 mg 9-23 (1) ity of capsule 00:00: [place] 00 BY MOUTH Medical DAILY. Branch omeprazole Yes TAKE ONE Uni vers 20 mg 9-23 (1) ity of capsule 00:00: [place] 00 BY MOUTH Medical DAILY. Branch omeprazole Yes TAKE ONE Uni vers 20 mg 9-23 (1) ity of capsule 00:00: [place] 00 BY MOUTH Medical DAILY. Branch omeprazole Yes TAKE ONE Uni vers 20 mg 9-23 (1) ity of capsule 00:00: [place] 00 BY MOUTH Medical DAILY. Branch FREESTYLE 2015-09 Yes Univers LITE STRIPS 2-25 ity of strip 00:00: [place] 00 Medical Branch FREESTYLE 2016- Yes Univers LITE STRIPS 2-25 ity of strip 00:00: [place] 00 Medical Branch FREESTYLE 2016- Yes Univers LITE STRIPS 2-25 ity of strip 00:00: [place] 00 Medical Branch FREESTYLE 2016- Yes Univers LITE STRIPS 2-25 ity of strip 00:00: [place] 00 Medical Branch FREESTYLE 2016- Yes Univers LITE STRIPS 2-25 ity of strip 00:00: [place] 00 Medical Branch FREESTYLE 2016-1 Yes Univers LITE STRIPS 2-25 ity of strip 00:00: [place] 00 Medical Branch FREESTYLE 2016-1 Yes Univers LITE STRIPS 2-25 ity of strip 00:00: [place] 00 Medical Branch FREESTYLE 2016-1 Yes Univers LITE STRIPS 2-25 ity of strip 00:00: [place] 00 Medical Branch FREESTYLE 2016-1 Yes Univers LITE STRIPS 2-25 ity of strip 00:00: [place] 00 Medical Branch FREESTYLE 2016-1 Yes Univers LITE STRIPS 2-25 ity of strip 00:00: [place] 00 Medical Branch FREESTYLE 2016-1 Yes Univers LITE STRIPS 2-25 ity of strip 00:00: [place] 00 Medical Branch FREESTYLE 2016-1 Yes Univers LITE STRIPS 2-25 ity of strip 00:00: [place] 00 Medical Branch FREESTYLE 2016-1 Yes Univers LITE STRIPS 2-25 ity of strip 00:00: [place] 00 Medical Branch FREESTYLE 2016-1 Yes Univers LITE STRIPS 2-25 ity of strip 00:00: [place] 00 Medical Branch FREESTYLE 2016-1 Yes Univers LITE STRIPS 2-25 ity of strip 00:00: [place] 00 Medical Branch Insulin 2015- Yes Use as Univers [place], 2-22 directed, ity of Disposable, 00:00: [place], [place] (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) 31 Branch X 5/16 " [place] Insulin 2014-09 Yes Use as Univers [place], 2-22 directed, ity of Disposable, 00:00: [place], [place] (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) 31 Branch X 5/16 " [place] Insulin 2014-09 Yes Use as Univers [place], 2-22 directed, ity of Disposable, 00:00: [place], [place] (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) 31 Branch X 5/16 " [place] Insulin 2014- Yes Use as Univers [place], 2-22 directed, ity of Disposable, 00:00: [place], [place] (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) 31 Branch X 5/16 " [place] Insulin 2014-09 Yes Use as Univers [place], 2-22 directed, ity of Disposable, 00:00: [place], [place] (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) 31 Branch X 5/16 " [place] Insulin 2014-09 Yes Use as Univers [place], 2-22 directed, ity of Disposable, 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) 31 Branch X 5/16 " [place] Insulin 2014-09 Yes Use as Univers [place], 2-22 directed, ity of Disposable, 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) 31 Branch X 5/16 " [place] Insulin 2014-09 Yes Use as Univers [place], 2-22 directed, ity of Disposable, 00:[place] (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) 31 Branch X /16 " Ndle Insulin 2014-09 Yes Use as Univers [place], 2-22 directed, ity of Disposable, 00:00: [place], [place] (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) 31 Branch X /16 " [place]dle Insulin 2014-09 Yes Use as Univers [place], 2-22 directed, ity of Disposable, 00:00: [place], [place] (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) 31 Branch X 16 " [place] Insulin 2014-09 Yes Use as Univers [place], 2-22 directed, ity of Disposable, 00:00: [place], [place] (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) 31 Branch X /16 " [place]dle Insulin 2014-09 Yes Use as Univers [place], 2-22 directed, ity of Disposable, 00:00: [place], [place] (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) 31 Branch X 16 " [place]dle Insulin 2014-09 Yes Use as Univers [place], 2-22 directed, ity of Disposable, 00:00: [place], [place] (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) 31 Branch X 16 " [place] Insulin 2014-09 Yes Use as Univers [place], 2-22 directed, ity of Disposable, 00:00: [place], [place] (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) 31 Branch X 5/16 " [place] Insulin 2014-09 Yes Use as Univers [place], 2-22 directed, ity of Disposable, 00:00: [place], [place] (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) 31 Branch X 516 " [place] Tramadol Tramadol Yes Michael (Schedule [facility] [...] ne Sodium [facility] Auth: Rx [facility] Ref[facility][id number] [facility] [id number]) l [facility]pat[facility] Clinics Flomax Flomax Yes Michael [address] [facility] 30 minutes [facility] - after the [facility] same meal l each day Outpati ent Clinics Januvia Januvia Yes Michael as [facility] NovoLog NovoLog Yes Michael as [facility] Gabapentin Gabapentin Yes Michael [address] [facility] Immunizations Ordered Filled Immunization Date Status Comments [facility] e Immunization Name Name Influenza Virus 2020-07-02 Completed Universit y of Vaccine 00:00:00 [facility] Influenza Virus 2020-07-02 Completed Universit y of Vaccine 00:00:00 [facility] Influenza Virus 2020-07-02 Completed Universit y of Vaccine 00:00:00 [facility] Influenza Virus 2020-07-02 Completed Universit y of Vaccine 00:00:00 [facility] Influenza Virus 2020-07-02 Completed Universit y of Vaccine 00:00:00 [facility] Influenza Virus 2020-07-02 Completed Universit y of Vaccine 00:00:00 [facility] Influenza Virus 2020-07-02 Completed Universit y of Vaccine 00:00:00 [facility] Influenza Virus 2020-07-02 Completed Universit y of Vaccine 00:00:00 [facility] Influenza Virus 2020-07-02 Completed Universit y of Vaccine 00:00:00 [facility] Influenza Virus 2020-07-02 Completed Universit y of Vaccine 00:00:00 [facility] TDAP 2019-08-12 Completed University of 00:00:00 [facility] TDAP 2019-08-12 Completed University of 00:00:00 [facility] Branch TDAP 2019-08-12 Completed University of 00:00:00 [facility] Branch TDAP 2019-08-12 Completed University of 00:00:00 [facility] TDAP 2019-08-12 Completed University of 00:00:00 [facility] TDAP 2019-08-12 Completed University of 00:00:00 [facility] TDAP 2019-08-12 Completed University of 00:00:00 [facility] TDAP 2019-08-12 Completed University of 00:00:00 [facility] TDAP 2019-08-12 Completed University of 00:00:00 [facility] TDAP 2019-08-12 Completed University of 00:00:00 [facility] Influenza High Dose 2019-07-12 Completed Unive rsity of 00:00:00 [facility] Influenza High Dose 2019-07-12 Completed Unive rsity of 00:00:00 [facility] Influenza High Dose 2019-07-12 Completed Unive rsity of 00:00:00 [facility] Influenza High Dose 2019-07-12 Completed Unive rsity of 00:00:00 [facility] Influenza High Dose 2019-07-12 Completed Unive rsity of 00:00:00 [facility] Influenza High Dose 2019-07-12 Completed Unive rsity of 00:00:00 [facility] Influenza High Dose 2019-07-12 Completed Unive rsity of 00:00:00 [facility] Influenza High Dose 2019-07-12 Completed Unive rsity of 00:00:00 [facility] Influenza High Dose 2019-07-12 Completed Unive rsity of 00:00:00 [facility] Influenza High Dose 2019-07-12 Completed Unive rsity of 00:00:00 [facility] Influenza High Dose 2019-07-12 Completed Unive rsity of 00:00:00 [facility] Influenza High Dose 2019-07-12 Completed Unive rsity of 00:00:00 [facility] Influenza High Dose 2019-07-12 Completed Unive rsity of 00:00:00 [facility] Influenza High Dose 2019-07-12 Completed Unive rsity of 00:00:00 [facility] Influenza High Dose 2019-07-12 Completed Unive rsity of 00:00:00 [facility] Zoster Vaccine 2018-12-30 Completed University of Recombinant 00:00:00 [facility] Zoster Vaccine 2018-12-30 Completed University of Recombinant 00:00:00 [facility] Zoster Vaccine 2018-12-30 Completed University of Recombinant 00:00:00 [facility] Zoster Vaccine 2018-12-30 Completed University of Recombinant 00:00:00 [facility] Zoster Vaccine 2018-12-30 Completed University of Recombinant 00:00:00 [facility] Zoster Vaccine 2018-12-30 Completed University of Recombinant 00:00:00 [facility] Zoster Vaccine 2018-12-30 Completed University of Recombinant 00:00:00 [facility] Zoster Vaccine 2018-12-30 Completed University of Recombinant 00:00:00 [facility] Zoster Vaccine 2018-12-30 Completed University of Recombinant 00:00:00 [facility] Zoster Vaccine 2018-12-30 Completed University of Recombinant 00:00:00 [facility] Zoster Vaccine 2018-09-18 Completed University of Recombinant 00:00:00 [facility] Zoster Vaccine 2018-09-18 Completed University of Recombinant 00:00:00 [facility] Zoster Vaccine 2018-09-18 Completed University of Recombinant 00:00:00 [facility] Zoster Vaccine 2018-09-18 Completed University of Recombinant 00:00:00 [facility] Zoster Vaccine 2018-09-18 Completed University of Recombinant 00:00:00 [facility] Zoster Vaccine 2018-09-18 Completed University of Recombinant 00:00:00 [facility] Zoster Vaccine 2018-09-18 Completed University of Recombinant 00:00:00 [facility] Zoster Vaccine 2018-09-18 Completed University of Recombinant 00:00:00 [facility] Zoster Vaccine 2018-09-18 Completed University of Recombinant 00:00:00 [facility] Zoster Vaccine 2018-09-18 Completed University of Recombinant 00:00:00 [facility] Pneumococcal 13 2018-07-27 Completed Universit y of Conjugate, PCV13 00:00:00 [place] [facility] (Prevnar 13) Branch Pneumococcal 13 2018-07-27 Completed Universit y of Conjugate, PCV13 00:00:00 [place] [facility] (Prevnar 13) Branch Pneumococcal 13 2018-07-27 Completed Universit y of Conjugate, PCV13 00:00:00 [place] [facility] dical (Prevnar 13) Branch Pneumococcal 13 2018-07-27 Completed Universit y of Conjugate, PCV13 00:00:00 [place] Me dical (Prevnar 13) Branch Pneumococcal 13 2018-07-27 Completed Universit y of Conjugate, PCV13 00:00:00 [place] Me dical (Prevnar 13) Branch Pneumococcal 13 2018-07-27 Completed Universit y of Conjugate, PCV13 00:00:00 [place] Me dical (Prevnar 13) Branch Pneumococcal 13 2018-07-27 Completed Universit y of Conjugate, PCV13 00:00:00 [place] Me dical (Prevnar 13) Branch Pneumococcal 13 2018-07-27 Completed Universit y of Conjugate, PCV13 00:00:00 [place] Me dical (Prevnar 13) Branch Pneumococcal 13 2018-07-27 Completed Universit y of Conjugate, PCV13 00:00:00 [place] Me dical (Prevnar 13) Branch Pneumococcal 13 2018-07-27 Completed Universit y of Conjugate, PCV13 00:00:00 [place] Me dical (Prevnar 13) Branch Pneumococcal 13 2018-07-27 Completed Universit y of Conjugate, PCV13 00:00:00 [place] Me dical (Prevnar 13) Branch Pneumococcal 13 2018-07-27 Completed Universit y of Conjugate, PCV13 00:00:00 [place] Me dical (Prevnar 13) Branch Pneumococcal 13 2018-07-27 Completed Universit y of Conjugate, PCV13 00:00:00 [place] Me dical (Prevnar 13) Branch Pneumococcal 13 2018-07-27 Completed Universit y of Conjugate, PCV13 00:00:00 [place] Me dical (Prevnar 13) Branch Pneumococcal 13 2018-07-27 Completed Universit y of Conjugate, PCV13 00:00:00 [place] Me dical (Prevnar 13) Branch Vital Signs Vital Name Observation Time Observation Value Comments Source Systolic blood 2020-09-13 20:39:00 130 mm[Hg] Univer sity of pressure [facility] Diastolic blood 2020-09-13 20:39:00 60 mm[Hg] Unive rsity of [facility] Heart rate 2020-09-13 20:39:00 71 /min [facility] Respiratory rate 2020-09-13 20:39:00 20 /min Univ ersity [facility] Body weight 2020-09-13 20:39:00 107.049 kg [facility] BMI 2020-09-13 20:39:00 36.96 kg/m2 Universi ty [facility] [place] [facility] Oxygen saturation in 2020-09-13 20:39:00 91 /min University of Arterial blood by [facility] Pulse oximetry Branch Systolic blood 2020-09-13 20:39:00 130 mm[Hg] Univer sity of pressure [place] [facility] Diastolic blood 2020-09-13 20:39:00 60 mm[Hg] Unive rsity of pressure [place] [facility] Heart rate 2020-09-13 20:39:00 71 /min [facility]i ty [facility] [place] [facility] Respiratory rate 2020-09-13 20:39:00 20 /min Univ ersity of [place] [facility] Body weight 2020-09-13 20:39:00 107.049 kg Universi ty [facility] [place] [facility] BMI 2020-09-13 20:39:00 36.96 kg/m2 [facility] [place] [facility] Oxygen saturation in 2020-09-13 20:39:00 91 /min University of Arterial blood by [facility] Pulse oximetry Branch Procedures Procedure Date / Time Performed Performing Clinician Sour e EXTERNAL PROVIDER 2021-06-20 05:01:00 Doctor Unassigned, No Univ [facility] [place] RECORDS Name Medical Branch EXTERNAL PROVIDER 2021-05-23 05:01:00 Doctor Unassigned, No Univ ersity [facility] RECORDS Name Medical Branch EXTERNAL PROVIDER - 2020-09-21 06:01:00 Doctor Unassigned, No [facility] [place] ADC CARDIOLOGY Name Medical Branch CONSENT/REFUSAL FOR 2020-09-13 20:18:19 Doctor Unassigned, No [facility] [place] DIAGNOSIS AND Name Medical Branch TREATMENT MEDICAL 2020-08-10 06:01:00 Doctor Unassigned, No [facility] [place] RELEASE/CLEARANCE Name Medical Branch FORMS SCANNED LAB RESULTS 2019-11-02 06:01:00 Doctor Unassigned, No [facility] [place] Name Medical Branch Encounters Start End Encounter Admission Attending Care Care Encounter Source Date/Time Date/Time Type Type Clinicians Facility Department ID 2021-09-19 2021-09-19 Outpatient R CIRILO [place] [facility] [id number] Univers 13:20:00 13:20:00 JANUSZJUN [id number] ity o f [facility] Branch 2021-08-22 2021-08-22 Telephone Cirilo [facility] [id number] Univers 00:00:00 00:00:00 Qiangjun [place] [id number] ity of [place] [id number] [phone] [place] dical NAL 059 [facility] 2021-06-20 2021-06-20 Orders Doctor MARAH 1.2.840.114 [id number] Univers 00:00:00 00:00:00 Only Unassigned, NIK [id number] [facility] [place] [facility] [id number] [place] [phone] [address] 2021-05-23 2021-05-23 Orders Doctor MARAH [id number] [id number] Univers 00:00:00 00:00:00 Only Unassigned, NIK [id number] [facility] [place] [facility] [id number] [place] [phone] [address] 2021-03-30 2021-03-30 Refill [facility] [id number] Univers 00:00:00 00:00:00 [place] [id number] [facility] [id number] [phone] Ga dical nal 9 [facility] 2020-10-20 2020-10-20 Telephone [facility] [id number] Univers 00:00:00 00:00:00 [place] [id number] [facility] [id number] [phone] Ga dical nal 9 [facility] 2020-09-21 2020-09-21 Orders Doctor MARAH 1.2.840.114 [id number] Univers 00:00:00 00:00:00 Only Unassigned, NIK [id number] [facility] [place] [facility] [id number] [place] [phone] [address] 2020-09-13 2020-09-13 Office [facility] 1.2.840.114 [id number] Univers 14:18:45 15:01:50 Visit Riley [place] [id number] [facility] [id number] [phone] [address] 2020-09-13 2020-09-13 Office [facility] 1.2.840.114 [id number] 14:18:45 15:01:50 Visit Riley [place] [id number] [place] [id number] Professio [phone] [address] 2020-09-13 2020-09-13 Outpatient R [facility] [id number] Univers 14:20:00 14:20:00 JANUSZJOSHUA [id number] ity o f [facility] 2020-09-13 2020-09-13 Outpatient R [facility] [id number] Univers 14:20:00 14:20:00 RILEY camejo o f [facility] 2020-09-13 2020-09-13 Orders Doctor MARAH 1.2.840.114 [id number] Univers 00:00:00 00:00:00 Only Unassigned, NIK [id number] [facility] [place] [facility] [id number] [place] [phone] [address] 2020-08-11 2020-08-11 Telephone [facility] [id number] Univers 00:00:00 00:00:00 Januszjoshua [place] [id number] [facility] [id number] [phone] [address] 2020-08-10 2020-08-10 Orders Doctor MARAH 1.2.840.114 [id number] Univers 00:00:00 00:00:00 Only Unassigned, NIK [id number] [facility] [place] [facility] [id number] [place] [phone] [address] 2019-11-02 2019-11-02 Orders Doctor MARAH 1.2.840.114 [id number] Univers 00:00:00 00:00:00 Only Unassigned, NIK [id number] [facility] [place] [facility] [id number] [place] [phone] [facility] [address] 2019-06-16 2019-06-16 Outpatient Gayatri GR [facility] [id number] 15:18:00 23:59:00 ANTHONY [facility] 2018-04-30 2018-04-30 Outpatient Bekah Vera [id number] [address] 13:30:00 13:30:00 [facility] Clinics Results Test Description Test Time Test Comments Results Result [facility] e Comments NM LUNG (V/Q ) 2019-06-16 Radionuclide SCAN 16:46:52 ventilation/perfusion lung scanLocation Code: [id number]: Shortness of breathCOMPARISON: NoneCOMMENT: Routine images of [...] Test Item Value Reference Range Interpretation Comme [facility] POC-GLUCOSE METER (ISHAAN) (test 157 mg/dL 70-110 H TESTED AT [facility] 6490 code = 1538) [facility] [address]
--- NOTE | 2021-09-06 17:08 | P.HP ---
Patient History Date of Service: 09/06/21 Allergies No Known Allergies Allergy (Verified 01/19/18 04:44) Home Medications: Allopurinol 100 mg PO DAILY 09/01/20 Pantoprazole [Protonix Tab*] 40 mg PO DAILY 09/01/20 Tamsulosin [Flomax*] 1 tab PO BID 09/01/20 Amiodarone HCl [Cordarone*] 200 mg PO DAILY #30 tab 09/06/20 Furosemide [Lasix*] 100 mg PO TID #226 tab 09/06/20 Insulin Glargine Human [Lantus*] 35 units SQ BEDTIME #10 ml 09/06/20 Melatonin 10 mg PO BEDTIME PRN PRN #30 tablet 09/06/20 Potassium Oral Tab [Klor-Con 10 mEq Tab*] 40 meq PO DAILY #120 tab 09/06/20 metOLazone [Zaroxolyn*] 5 mg PO DAILY #30 tab 09/06/20 - Past Medical/Surgical History Diabetic: Yes -: HTN -: Hyperlipidemia -: Diabetes mellitus type 2 insulin-dependent -: History of asbestosis -: MRSA foot w/ cellulitis -: Obstructive sleep apnea -: Chronic atrial fibrillation not on chronic anti coagulation -: Diastolic CHF -: Chronic lymphedema -: Hypothyroidism -: Chronic renal disease stage III -: Bilateral wrist sx (fell off deer stand and broke both wrist) -: cataract sx -: Right hip sx r/t fx Psychosocial/ Personal History: Patient lives at home by himself but has caregiver coming throughout the week. - Family History Mother Notes: denies having family history of illness Father Notes: denies having family history of illness Sister Notes: denies having family history of illness Brother Notes: denies having family history of illness - Social History Alcohol use: No CD- Drugs: No Caffeine use: Yes Assessment and Plan - Advance Directives Does patient have a Living Will: No Does patient have a Durable POA for Healthcare: Yes
[2021-09-06] MEDS ORDERED: ALBUTEROL 2.5 MG/3 ML NEB SOL NEB PRN (17:34)
--- NOTE | 2021-09-06 18:09 | P.HP ---
Certification for Inpatient Patient admitted to: Inpatient With expected LOS: >2 Midnights Practitioner: I am a practitioner with admitting privileges, knowledge of patient current condition, hospital course, and medical plan of care. 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 Patient serum creatinine noted to be 3.2 compared to recent baseline of 2.3. He has a history of BPH there is a concern for obstructive uropathy. Elevated serum creatinine could also be prerenal as patient is on Lasix 100 mg 3 times a day for diuresis. His lab work also suggested UTI. Patient denies any shortness of breath or cough or chest pain. He denies any difficulty with urination. He does have nocturia. Allergies No Known Allergies Allergy (Verified 01/19/18 04:44) Home Medications: Allopurinol 100 mg PO DAILY 09/01/20 Pantoprazole [Protonix Tab*] 40 mg PO DAILY 09/01/20 Tamsulosin [Flomax*] 1 tab PO BID 09/01/20 Amiodarone HCl [Cordarone*] 200 mg PO DAILY #30 tab 09/06/20 Furosemide [Lasix*] 100 mg PO TID #226 tab 09/06/20 Melatonin 10 mg PO BEDTIME PRN PRN #30 tablet 09/06/20 metOLazone [Zaroxolyn*] 5 mg PO DAILY #30 tab 09/06/20 Atorvastatin Calcium 40 mg PO BEDTIME 09/06/21 Insulin Glargine Human [Lantus*] 60 units SQ BEDTIME 09/06/21 Levothyroxine Sodium [Levothyroxine] 50 mcg PO DAILY 09/06/21 hydrOXYzine HCL [Atarax*] 25 mg PO TID 09/06/21 metOLazone [Metolazone] 5 mg PO DAILY 09/06/21 - Past Medical/Surgical History Diabetic: Yes -: HTN -: Hyperlipidemia -: Diabetes mellitus type 2 insulin-dependent -: History of asbestosis -: MRSA foot w/ cellulitis -: Obstructive sleep apnea -: Chronic atrial fibrillation not on chronic anti coagulation -: Diastolic CHF -: Chronic lymphedema -: Hypothyroidism -: Chronic renal disease stage III -: Bilateral wrist sx (fell off deer stand and broke both wrist) -: cataract sx -: Right hip sx r/t fx Psychosocial/ Personal History: Patient lives at home by himself but has caregiver coming throughout the week. - Family History Mother Notes: denies having family history of illness Father Notes: denies having family history of illness Sister Notes: denies having family history of illness Brother Notes: denies having family history of illness - Social History Alcohol use: No CD- Drugs: No Caffeine use: Yes Review of Systems Other: Except as documented, all other systems reviewed and negative. Physical Examination - Physical Exam General: Alert, In no apparent distress, Oriented x3, Obese HEENT: Mucous membr. moist/pink Neck: Supple, JVD not distended Respiratory: Clear to auscultation bilaterally, Normal air movement Cardiovascular: Regular rate/rhythm, Normal S1 S2, No murmurs, Edema (Bilateral lower extremities) Gastrointestinal: Normal bowel sounds, Soft and benign, Non-distended, Other (Obese abdomen) Musculoskeletal: Swelling (Bilateral legs) Integumentary: No cyanosis, Other (Bilateral lower extremity venous stasis dermatitis) Neurological: Normal speech, Normal strength at 5/5 x4 extr, Cranial nerves 3-12 intact Lymphatics: Other (Bilateral lower extremity lymphedema) Assessment and Plan - Problems (Diagnosis) (1) Acute worsening of stage 3 chronic kidney disease Current Visit: Yes Status: Acute (2) Chronic atrial fibrillation Current Visit: Yes Status: Acute (3) Chronic diastolic heart failure Current Visit: Yes Status: Acute (4) Benign prostate hyperplasia Current Visit: No Status: Acute (5) Morbid obesity with BMI of 40.0-44.9, adult Current Visit: No Status: Acute (6) Cor pulmonale (chronic) Current Visit: No Status: Chronic (7) Diabetes Current Visit: No Status: Chronic (8) 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 Gently hydrate with IV normal saline per nephrology recommendation. Obtain renal/bladder ultrasound to rule out obstructive uropathy. Consults to nephrology. Hold his Lasix and metolazone. Monitor renal function for improvement. Insulin sliding scale for glucose management. Reconcile and continue other home medications. - Advance Directives Does patient have a Living Will: No Does patient have a Durable POA for Healthcare: Yes
[2021-09-06] MEDS ORDERED: MELATONIN 5 MG TABLET PO PRN (18:11)
[2021-09-06 18:19] VITALS: BMI 51.5
[2021-09-06 18:41] LABS: Absolute Lymphocytes (CBC) 0.9 K/uL (0.7-4.9); Basophils % 0.4 % (0-1.3); Hematocrit 39.2 % (39.6-49.0); Lymphocytes % 10.2 % (15.3-44.8); MPV 7.8 fL (7.6-11.3); RBC Red Blood Cell Count 4.51 M/uL (4.33-5.43)
[2021-09-06 18:42] LABS: Protime INR 1.13
[2021-09-06] MEDS: NA CHLORIDE 0.9% 1,000 ML IV SCH (18:50)
[2021-09-06] MEDS: IPRATROPIUM BROM 0.5MG/2.5ML NEB SCH (19:15)
[2021-09-06 19:24] LABS: Albumin 3.1 g/dL (3.4-5.0); Bilirubin Total 0.6 mg/dL (0.2-1.0); Phosphorus 4.1 mg/dL (2.5-4.9); Protein, Total 8.5 g/dL (6.4-8.2)
[2021-09-06 19:27] LABS: Urine Appearance CLEAR (Clear); Urine Bilirubin NEGATIVE (Negative); Urine Blood NEGATIVE (Negative); Urine Color YELLOW (Yellow); Urine Glucose NEGATIVE (Negative); Urine Protein NEGATIVE (Negative); Urine Urobilinogen 0.2 mg/dL (0.2-1.0); Urine pH 6.5 (5.0-7.0)
[2021-09-06 19:43] LABS: Urine Microscopic Reflex ORDER UMIC
[2021-09-06 19:48] LABS: Potassium 2.9 mmol/L (3.5-5.1)
[2021-09-06 19:57] LABS: Urine Bacteria <20 /HPF (NONE SEEN); Urine RBC <5 /HPF (NONE SEEN)
[2021-09-06] MEDS ORDERED: PNEUMOCOCCAL VACCINE 0.5 ML IMVAC ONE (20:00)
[2021-09-06] MEDS ORDERED: INFLUENZA VACCINE (for 6+ mo) 0.5 ML DOSE IMVAC ONE (20:00)
[2021-09-06] MEDS: TAMSULOSIN 0.4 MG SR CAP PO SCH (21:20)
[2021-09-06] MEDS: ATORVASTATIN 40 MG TAB PO SCH (21:21)
[2021-09-06] MEDS: INSULIN GLARGINE 100 UNIT/ML SQ SCH (21:21)
[2021-09-06] MEDS: INSULIN -REGULAR HUMAN 50 UNIT/0.5 ML ML SQ SCH (21:21)
[2021-09-06 22:16] LABS: SARS-COV-2 RT PCR NEGATIVE (NEGATIVE)
[2021-09-06] MEDS: KCL 20 MEQ/100 mL IVPB 20 MEQ/100 ML BAG IV SCH (23:52)
[2021-09-07 00:36] LABS: Uric Acid 12.2 mg/dL (3.5-7.2)
[2021-09-07] MEDS: HEPARIN 5000 UNIT/ML 1 ML VIAL SQ SCH ×3 (00:38→18:01)
[2021-09-07] MEDS: IPRATROPIUM BROM 0.5MG/2.5ML NEB SCH ×4 (02:00→20:25)
[2021-09-07] MEDS: KCL 20 MEQ/100 mL IVPB 20 MEQ/100 ML BAG IV SCH ×2 (02:20→04:28)
[2021-09-07 06:22] LABS: Potassium 3.6 mmol/L (3.5-5.1)
[2021-09-07 06:26] LABS: Thyroid Stimulating Hormone 11.7 uIU/mL (0.360-3.740)
[2021-09-07] MEDS ORDERED: LEVOTHYROXINE SOD 0.05 MG TABLET PO SCH (06:30)
[2021-09-07] MEDS: NA CHLORIDE 0.9% 1,000 ML IV SCH (07:20)
--- NOTE | 2021-09-07 07:24 | RAD REPORT ---
EXAM DESCRIPTION: US - Renal Ultrasound-Complete - 09/07/2021 12:23 am CLINICAL HISTORY: Acute renal failure COMPARISON: 2019 FINDINGS: The right kidney measures 10 cm with an increased echotexture. The left kidney measures 9 cm with an increased echotexture. Hydronephrosis is not seen. Pickett catheter is present within a collapsed bladder IMPRESSION: Mildly increased renal echotexture consistent with parenchymal disease
[2021-09-07] MEDS: INSULIN -REGULAR HUMAN 50 UNIT/0.5 ML ML SQ SCH ×4 (07:30→20:04)
[2021-09-07] MEDS ORDERED: HOME MED 1 EA UNK (Levothyroxine Sodium [Levothyroxine] 50 MCG Capsule) PO SCH (09:00)
[2021-09-07] MEDS: allopurinoL 100 MG TAB PO SCH (09:31)
[2021-09-07] MEDS: AMIODARONE HCL 200 MG TAB PO SCH (09:31)
[2021-09-07] MEDS: PANTOPRAZOLE 40MG TABLET PO SCH (09:31)
[2021-09-07] MEDS: TAMSULOSIN 0.4 MG SR CAP PO SCH ×2 (09:32→20:04)
--- NOTE | 2021-09-07 12:47 | P.PN ---
Subjective Date of Service: 09/07/21 Chief Complaint: Abnormal labs Patient has no complaints today. Serum creatinine trended down and almost close to baseline. He denies any shortness of breath. Physical Examination - Vital Signs Temperature: 96.9 F Blood Pressure: 138/63 Pulse: 76 Respirations: 18 Pulse Ox (%): 93 - Physical Exam General: Alert, In no apparent distress, Oriented x3 HEENT: Mucous membr. moist/pink Neck: JVD not distended Respiratory: Clear to auscultation bilaterally, Normal air movement Cardiovascular: Normal S1 S2, Edema (Bilateral lower extremities), Irregular heart rate/rhythm Gastrointestinal: Soft and benign, Non-distended, No tenderness Musculoskeletal: No tenderness Integumentary: Other (Bilateral lower extremity venous stasis dermatitis) Neurological: Normal strength at 5/5 x4 extr Lymphatics: Other (Bilateral lower extremity lymphedema) - Studies Laboratory Data (last 24 hrs) 09/07/21 05:32: Sodium 138, Potassium 3.6, BUN 84 H, Creatinine 2.59 H, Glucose 120 H, Triglycerides 140, Cholesterol 128, HDL Cholesterol 35 L, Cholesterol/HDL Ratio 3.66 09/06/21 18:30: Sodium 133 L, Potassium 2.9 L*, BUN 94 H, Creatinine 2.91 H, Glucose 219 H, Uric Acid 12.2 H, Phosphorus 4.1, Magnesium 2.0 D, Total Bilirubin 0.6, AST 14 L, ALT 17, Alkaline Phosphatase 91 09/06/21 18:30: PT 13.0 H, INR 1.13 09/06/21 18:30: WBC 8.50, Hgb 12.5 L, Hct 39.2 L, Plt Count 159 Assessment And Plan - Current Problems (Diagnosis) (1) Acute worsening of stage 3 chronic kidney disease Current Visit: Yes Status: Acute (2) Chronic atrial fibrillation Current Visit: Yes Status: Acute (3) Chronic diastolic heart failure Current Visit: Yes Status: Acute (4) Benign prostate hyperplasia Current Visit: No Status: Acute (5) Morbid obesity with BMI of 40.0-44.9, adult Current Visit: No Status: Acute (6) Cor pulmonale (chronic) Current Visit: No Status: Chronic (7) Diabetes Current Visit: No Status: Chronic (8) 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 We will continue IV hydration with 1 L normal saline. Check renal function in a.m.. Lasix is on hold Monitor and optimize electrolytes. Renal ultrasound: No obstructive uropathy. Continue other home medications. Lantus insulin and insulin sliding scale for glucose management. Amiodarone for A. fib.
[2021-09-07] MEDS ORDERED: NA CHLORIDE 0.9% 1,000 ML IV SCH (13:00)
--- NOTE | 2021-09-07 13:33 | RAD REPORT ---
EXAM DESCRIPTION: RAD - Chest Single View - 09/07/2021 1:19 pm CLINICAL HISTORY: COPD COMPARISON: Chest Single View dated 09/03/2020; Chest Single View dated 09/01/2020; Chest Single Vie w dated 12/05/2019; Chest Single View dated 09/25/2019 FINDINGS: Lines: None. Lungs: No evidence of edema or pneumonia. Similar prominence of the central pulmonary vasculature. Pleural: No significant pleural effusions or pneumothorax. Cardiac: Cardiomegaly. Bones: No acute fractures. Other: Atherosclerosis. IMPRESSION: No acute cardiopulmonary disease.
--- NOTE | 2021-09-07 13:56 | CON ---
Date of Consultation: 09/07/2021 Reason For Consultation: Elevated BUN and creatinine, acute kidney injury, anasarca. 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 The patient had recurrent admission to the hospital with acute kidney injury, anasarca. The patient came to the office yesterday, found to have elevation in BUN and creatinine. For that reason, the patient was directed to the admission. The patient was seen by primary care last month. At that time, his creatinine was jumped slightly to 2.5. We backed up on the diuresis, but kidney function continued to decline. For that reason, the patient was directed to the hospital. The patient also has cellulitis, was started on the Levaquin. The patient denied taking any nonsteroidal. No IV contrast recently. The patient was taking Lasix 100 mg 3 times a day. Past Medical History: Include: 1. Diabetes complicated with neuropathy and nephropathy. 2. Hypertension. 3. Hyperlipidemia. 4. Coronary artery disease complicated with congestive heart failure, diastolic dysfunction, ejection fraction of 60%. 5. Pulmonary hypertension. 6. 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 Allergies: NO KNOWN DRUG ALLERGY. Family History: Positive for hypertension. Social History: Denies smoking. Denies drinking. Denies drugs of abuse. Home Medications: Include Lasix 100 t.i.d., Flomax 0.4 daily, pantoprazole, metolazone 5 mg every other day, atorvastatin, amitriptyline, amiodarone, allopurinol. Current Medications: In the hospital, Lasix has been discontinued. Flomax 0.4 b.i.d., amiodarone 200 daily, atorvastatin, pantoprazole, levothyroxine 50, insulin, normal saline at 75, allopurinol. Review of Systems: Head and Neck: No red eye. No ear pain. GI: No nausea, no vomiting. : No polyuria, no dysuria, no hematuria. Editorial Cartoonist: Not applicable. Respiratory: Has chronic shortness of breath. Cardiovascular: Has leg edema, has orthopnea. Endocrine: No polydipsia. Skin: No rash. Neuro: Has neuropathy. Musculoskeletal: Low back pain. Physical Examination: Vital Signs: When I saw the patient, the patient lying in bed, on nasal cannula, not on any respiratory distress. The patient was laying flat. Blood pressure of 138/63, pulse of 76, afebrile. Over the night, the patient had good urine output. Chest: Faint rales, bilateral base. Heart: S1, S2. Systolic murmur. Abdomen: Soft, nontender. Extremity: Compression wrap both lower extremities plus edema. Neuro: Alert, oriented x3. No focality. Laboratory Data: Lab data for the patient; renal ultrasound 10/9 cm Pickett inserted, increased echogenicity. WBC 8.5, H and H 12.5/39.2, platelet of 159. Sodium 138; potassium 3.6; bicarb 31; BUN 84; creatinine 2.5, trending down yesterday at 2.9; GFR 21, today 24; calcium 89; TSH 11.7. PTH of 118 on September 01, creatinine 3.2 with GFR of 18. Assessment And Plan: 1. Acute kidney injury secondary to prerenal over diuresis, looks to me slightly still on the dry side with third spacing. a. I going to resume IV hydration for another liter. Keep holding Lasix and metolazone. There is no hyperkalemia or acidosis. No significant fluid overload. I do not see the need for initiating any renal replacement therapy for the time being. Obstructive uropathy has been ruled out. We will continue Flomax. 2. Waiting for protein creatinine. I going to go ahead and get new chest x- ray to evaluate better his fluid status and we will monitor the patient. 3. Hypertension, controlled, optimal with the presence of acute kidney injury. We will keep holding on the diuresis for the time being and we will follow up. 4. Anasarca, multifactorial, secondary to cardiorenal/hypothyroidism. I am going to go ahead and increase levothyroxine to 75 with the presence of acute kidney injury. We will hold on Lasix and metolazone. 5. Cellulitis. The patient as outpatient was on Levaquin; we will resume. 6. Diabetes as by primary. 7. Congestive heart failure. Currently, the patient on the dry side. I will hold diuresis. We will get chest x-ray for better evaluation of the fluid status. Thank you, Dr. Luke for allowing us to participate in the care of your patient. time spend exam the patient face to face , placing order , review the date lab and radiology , discussed the case with count team member including nursing , and other business operations consultant and hospitalist 65 min SHARON Voice ID: [id number] Report ID: [id number] ANN
[2021-09-07] MEDS ORDERED: Levofloxacin 250mg IV 250 MG/50 ML BAG IV SCH (14:00)
[2021-09-07] MEDS: ATORVASTATIN 40 MG TAB PO SCH (20:03)
[2021-09-07] MEDS: INSULIN GLARGINE 100 UNIT/ML SQ SCH (20:05)
[2021-09-07] MEDS ORDERED: POTASSIUM CL SA 10 MEQ TAB PO ONE (21:00)
[2021-09-08] MEDS: HEPARIN 5000 UNIT/ML 1 ML VIAL SQ SCH ×3 (01:31→17:22)
[2021-09-08] MEDS: IPRATROPIUM BROM 0.5MG/2.5ML NEB SCH ×4 (02:18→20:00)
--- NOTE | 2021-09-08 06:10 | P.PN ---
Subjective Date of Service: 09/08/21 Chief Complaint: Abnormal labs Subjective: Other (No c/o of inc SOB.) Physical Examination - Vital Signs Temperature: 97.1 F Blood Pressure: 148/58 Pulse: 74 Respirations: 18 Pulse Ox (%): 93 - Physical Exam General: Other (frail looking) HEENT: Atraumatic, Normocephalic Neck: Supple Respiratory: Other (symmetric chest expansion) Cardiovascular: No rubs, No murmurs Gastrointestinal: Soft and benign, No guarding Musculoskeletal: No clubbing Integumentary: No warmth Neurological: Normal speech, Normal tone Urinary: Other (no bladder distention) - Studies Laboratory Data (last 24 hrs) 09/07/21 05:32: Sodium 138, Potassium 3.6, BUN 84 H, Creatinine 2.59 H, Glucose 120 H, Triglycerides 140, Cholesterol 128, HDL Cholesterol 35 L, Cholesterol/HDL Ratio 3.66 Assessment And Plan - Plan 1. Acute kidney injury secondary to prerenal from diuretic use. SCr improving to 2.5. Baseline SCr 1.8-2.2 as of 06/06/21. Villanueva po fluid intake. UCx neg. D/c gudino. Monitor renal panel. 2. CHF. TTE on 09/2019 showed biventricular dilation + normal sized ventricles, ? Restrictive cardiomyopathy. TTE also w/ pulmo Htn w/ RVSP 50 mmHg. No hyperCa, sarcoidosis unlikely. +Serum protein gap, r/o amyloid dse, f/u spep, upep, serum SHARLA, K:L SFLC. No iron overload on iron panel, hemochromatosis unlikely. No hx of cancer. CT chest from 2013 showed pleural plaques, ?asbestos exposure, but no clear e/o pulmo Htn. If he indeed has RCM, this may be from pulmo fibrosis. Continue home O2. Hold lasix + metolazone, resume as outpt when renal fxn further improved. 3. BPH. Cont flomax 4. Htn. Cont currrent med regimen. 5. Cellulitis. Abx. 6. DM2. Mngt per primary team
[2021-09-08] MEDS ORDERED: LEVOTHYROXINE SOD 0.075 MG TAB PO SCH (06:30)
[2021-09-08 06:40] LABS: Phosphorus 2.9 mg/dL (2.5-4.9); Potassium 3.7 mmol/L (3.5-5.1)
[2021-09-08] MEDS: INSULIN -REGULAR HUMAN 50 UNIT/0.5 ML ML SQ SCH ×3 (07:30→16:30)
[2021-09-08] MEDS: PANTOPRAZOLE 40MG TABLET PO SCH (09:52)
[2021-09-08] MEDS: AMIODARONE HCL 200 MG TAB PO SCH (09:52)
[2021-09-08] MEDS: TAMSULOSIN 0.4 MG SR CAP PO SCH (09:52)
[2021-09-08] MEDS: allopurinoL 100 MG TAB PO SCH (09:52)
--- NOTE | 2021-09-08 12:05 | P.DS ---
Admission Date: 09/06/21 Discharge Date: 09/08/21 Disposition: ROUTINE DISCHARGE Discharge Condition: FAIR Reason for Admission: Abnormal labs - Problems (1) Acute worsening of stage 3 chronic kidney disease Current Visit: Yes Status: Acute (2) Chronic atrial fibrillation Current Visit: Yes Status: Acute (3) Chronic diastolic heart failure Current Visit: Yes Status: Acute (4) Benign prostate hyperplasia Current Visit: No Status: Acute (5) Morbid obesity with BMI of 40.0-44.9, adult Current Visit: No Status: Acute (6) Cor pulmonale (chronic) Current Visit: No Status: Chronic (7) Diabetes Current Visit: No Status: Chronic (8) 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 Patient serum creatinine noted to be 3.2 compared to recent baseline of 2.3. He has a history of BPH there was a concern for obstructive uropathy. Elevated serum creatinine could also be prerenal as patient is on Lasix 100 mg 3 times a day for diuresis. His lab work also suggested UTI. Patient denied any shortness of breath or cough or chest pain. He denied any difficulty with urination. He endorsed nocturia. Patient hospitalized for further management. Hospital Course: Patient admitted to the medical floor and hydrated with IV normal saline. His serum creatinine responded to IV hydration and decreased to 2.4 which is close to baseline. Patient seen in consultation by nephrology. His Lasix and metolazone were held during the hospital stay. He was also treated for UTI with Levaquin. Nephrology has ordered reference labs to rule out various etiology for restrictive cardiomyopathy that needs to be followed as an outpatient. Patient renal function has responded to treatment and deemed stable for discharge. Nephrology recommended holding his diuretics on discharge until follow-up. Vital Signs/Physical Exam: Temp Pulse Resp BP Pulse Ox 98 F 80 16 140/70 94 09/08/21 11:54 09/08/21 11:54 09/08/21 11:54 09/08/21 11:54 09/08/21 11:54 General: Alert, In no apparent distress, Oriented x3 HEENT: Mucous membr. moist/pink Neck: JVD not distended Respiratory: Clear to auscultation bilaterally, Normal air movement Cardiovascular: Normal S1 S2, No murmurs, Edema (Bilateral lower extremities), Irregular heart rate/rhythm Gastrointestinal: Normal bowel sounds, Soft and benign, Non-distended, No tenderness Musculoskeletal: No tenderness Integumentary: No cyanosis Neurological: Normal strength at 5/5 x4 extr Lymphatics: Other (Bilateral lower extremity lymphedema.) Laboratory Data at Discharge: WBC 8.50 K/uL (4.3-10.9) 09/06/21 18:30 Hgb 12.5 g/dL (13.6-17.9) L 09/06/21 18:30 Hct 39.2 % (39.6-49.0) L 09/06/21 18:30 Plt Count 159 K/uL (152-406) 09/06/21 18:30 PT 13.0 SECONDS (9.5-12.5) H 09/06/21 18:30 INR 1.13 09/06/21 18:30 Sodium 137 mmol/L (136-145) 09/08/21 06:10 Potassium 3.7 mmol/L (3.5-5.1) 09/08/21 06:10 BUN 73 mg/dL (7-18) H 09/08/21 06:10 Creatinine 2.48 mg/dL (0.55-1.3) H 09/08/21 06:10 Glucose 120 mg/dL (74-106) H 09/08/21 06:10 Uric Acid 12.2 mg/dL (3.5-7.2) H 09/06/21 18:30 Phosphorus 2.9 mg/dL (2.5-4.9) 09/08/21 06:10 Magnesium 2.0 mg/dL (1.8-2.4) D 09/06/21 18:30 Total Bilirubin 0.6 mg/dL (0.2-1.0) 09/06/21 18:30 AST 14 U/L (15-37) L 09/06/21 18:30 ALT 17 U/L (12-78) 09/06/21 18:30 Alkaline Phosphatase 91 U/L (45-117) 09/06/21 18:30 Triglycerides 140 mg/dL (<150) 09/07/21 05:32 Cholesterol 128 mg/dL (<200) 09/07/21 05:32 HDL Cholesterol 35 mg/dL (40-60) L 09/07/21 05:32 Cholesterol/HDL Ratio 3.66 09/07/21 05:32 Home Medications: Allopurinol 100 mg PO DAILY 09/01/20 Pantoprazole [Protonix Tab*] 40 mg PO DAILY 09/01/20 Tamsulosin [Flomax*] 1 tab PO BID 09/01/20 Amiodarone HCl [Cordarone*] 200 mg PO DAILY #30 tab 09/06/20 Melatonin 10 mg PO BEDTIME PRN PRN #30 tablet 09/06/20 Atorvastatin Calcium 40 mg PO BEDTIME 09/06/21 Insulin Glargine Human [Lantus*] 60 units SQ BEDTIME 09/06/21 Levothyroxine Sodium [Levothyroxine] 50 mcg PO DAILY 09/06/21 hydrOXYzine HCL [Atarax*] 25 mg PO TID 09/06/21 levoFLOXacin [Levaquin] 250 mg PO Q48H #2 tab 09/08/21 New Medications: levoFLOXacin [Levaquin] 250 mg PO Q48H #2 tab Diet: AHA Activity: Ad jovi Followup: Ruby Kincaid MD [ACTIVE - CAN ADMIT] - 1-2 Weeks Time spent managing pt's care (in minutes): 36
[2021-09-08] MEDS ORDERED: INFLUENZA VACCINE (for 6+ mo) 0.5 ML DOSE IMVAC ONE (19:25)
[2021-09-08] MEDS ORDERED: PNEUMOCOCCAL VACCINE 0.5 ML IMVAC ONE (19:27)
[2021-09-08 20:52] VITALS: O2SAT 90
[2021-09-08] MEDS ORDERED: JUVEN PACKET PO SCH (21:00)
[2021-09-08 22:56] VITALS: BP 148/58; TEMP 97.1
[2021-09-09] MEDS ORDERED: levoFLOXacin 250 MG TAB PO SCH (14:00)
--- NOTE | 2021-09-09 17:02 | EKG ---
Test Date: 2021-09-07 Test Time: 14:03:56 [employer] El[employer] Operator: JESSE MEASUREMENT RESULTS: Intervals: Rate: 75 DC: QRSD: 100 QT: 484 QTc: 540 [place]: P: DC: QRS: 95 T: 105 INTERPRETIVE STATEMENTS: Atrial fibrillation with a competing junctional pacemaker Rightward axis Nonspecific ST and T wave abnormality, probably digitalis effect Prolonged QT Abnormal ECG Compared to ECG 09/01/2020 17:53:30 ST (T wave) deviation now present Prolonged QT interval now present Electronically Signed On 09-09-21 17:00:13 BOAT OFFICER by Shaquille Gagnon
== END 2021-09-08 20:00 | disposition home health service (06) | DRG 683 ==
LOC: 2ND 17:01
PROVIDERS: ADMIT Internal Medicine; ATTEND Internal Medicine
DX: N17.9 Acute kidney failure, unspecified (principal); N39.0 Urinary tract infection, site not specified; I50.32 Chronic diastolic (congestive) heart failure; I13.0 Hypertensive heart and chronic kidney disease with heart failure and stage 1 through stage 4 chronic kidney disease, or unspecified chronic kidney disease; I48.20 Chronic atrial fibrillation, unspecified; Z68.41 Body mass index [BMI] 40.0-44.9, adult; L03.90 Cellulitis, unspecified; I42.9 Cardiomyopathy, unspecified; N18.4 Chronic kidney disease, stage 4 (severe); E11.22 Type 2 diabetes mellitus with diabetic chronic kidney disease; E78.5 Hyperlipidemia, unspecified; N40.0 Benign prostatic hyperplasia without lower urinary tract symptoms; E66.01 Morbid (severe) obesity due to excess calories; I27.81 Cor pulmonale (chronic); I25.10 Atherosclerotic heart disease of native coronary artery without angina pectoris; E11.40 Type 2 diabetes mellitus with diabetic neuropathy, unspecified; Z79.890 Hormone replacement therapy; Z79.4 Long term (current) use of insulin; Z79.899 Other long term (current) drug therapy; Z20.822 Contact with and (suspected) exposure to COVID-19; Z23 Encounter for immunization
CPT/HCPCS: 0241U; 36415; 71045; 76770; 80048; 80053; 80061; 80069; 81003; 81015; 82550; 82570; 82947; 83520; 83735; 84100; 84132; 84156; 84165; 84166; 84300; 84439; 84443; 84550; 85025; 85610; 86334; 87086; 87088; 90471; 90732; 93005; 94760; J1644; J3480; J7030; Q2035

== ENCOUNTER 2021-09-17 12:11 | Inpatient (IN) | payer OTHER ==
--- OUTSIDE RECORDS SUMMARY | 2021-09-17 12:17 | XMS REPORT | Continuity of Care Document ---
:1935 Author Organization [facility] t Address [address] [place] [address] Care Team Providers Name Role Phone Pcp, [...] on on 00:00: [place] exertion) exertion) 00 [facility] Acute on Acute on Disease Active 2018-09 [...] it y of on on 00:00: [place] [address] [place] [address] Branch RAHEL RAHEL Disease Active 2018-09 Univers [...] diabetes 5-10 ity of mellitus mellitus 00:00: [place] with stage with stage 00 Me dical [...] deficiency deficiency 3-16 it y of 00:00: [place] 00 Medical Branch HLD HLD Disease Active Univers (hyperlipi (hyperlipi 3-16 it y of demia) demia) 00:00: [place] 00 Medical Branch 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 00:00: [place] with with 00 Medical neuropathy neuropathy Br anch OTIS (acute OTIS (acute Disease Active 2014-09 U nivers kidney kidney 2-16 ity of injury) injury) 00:00: [place] 00 Medical Branch Neuropathy Neuropathy Disease Active 2014-09 U nivers 2-16 ity of 00:00: [place] 00 Medical Branch Pain, Pain, Diagnosis Active [...] 2-16 issue ity of Iodide adverse 00:00: [place] Containi reaction 00 Medica l ng s Branch Products IODINE Drug Active Other-Cmnt 2014-09 Univer s AND Class 2-16 ity of IODIDE 00:00: [place] CONTAINI 00 Medical NG Branch PRODUCTS Social History Social Habit Start Date Stop Date Quantity Comments Source Exposure to Not sure [facility] SARS-CoV-2 (event) Medica l Branch Tobacco use and 2020-09-13 2020-09-13 Never used [facility] exposure 00:00:00 00:00:00 Medical Branch Alcohol intake 2020-09-13 2020-09-13 0 /d [facility] 00:00:00 00:00:00 Medical Branch [birth year] [facility] 00:00:00 00:00:00 Medical Branch Smoking Status Start Date Stop Date Source Former smoker 2020-09-13 00:00:00 2020-09-13 00:00:00 [facility] Medical Branch Medications Ordered Filled Start [...] times ity of BULK, MISC 20:45: daily. [facility] Branch furosemide 2019-09 Yes 100mg Take 100 Un debby (LASIX) 80 2-22 mg by ity of mg tablet 20:45: mouth [place] 04 daily. Medical Branch metOLazone 2019-09 Yes 10mg Take 10 mg U nivers 10 mg 2-22 by mouth ity of tablet 20:45: daily. [facility] POTASSIUM 2019-09 Yes 2 (two) Unive rs CHLORIDE, 2-22 times ity of BULK, MISC 20:45: daily. [facility] Branch furosemide 2019-09 Yes 100mg Take 100 Un [place]by (LASIX) 80 2-22 mg by ity of mg tablet 20:45: mouth 04 daily. Medical Branch metOLazone 2019-09 Yes 10mg Take 10 mg U nivers 10 mg 2-22 by mouth ity of tablet 20:45: daily. [facility] POTASSIUM 2019-09 Yes 2 (two) Unive rs CHLORIDE, 2-22 times ity of BULK, MISC 20:45: daily. Medical Branch furosemide 2019-09 Yes 100mg Take 100 Un [place]by (LASIX) 80 2-22 mg by ity of mg tablet 20:45: mouth [place] 04 daily. Medical Branch metOLazone 2019-09 Yes 10mg Take 10 mg U nivers 10 mg 2-22 by mouth ity of tablet 20:45: daily. [facility] Branch POTASSIUM 2019-09 Yes 2 (two) Unive rs CHLORIDE, 2-22 times ity of BULK, MISC 20:45: daily. Medical Branch furosemide 2019-09 Yes 100mg Take 100 Un debby (LASIX) 80 2-22 mg by ity of mg tablet 20:45: mouth [place] 04 daily. Medical Branch metOLazone 2019-09 Yes 10mg Take 10 mg U nivers 10 mg 2-22 by mouth ity of tablet 20:45: daily. [facility] POTASSIUM 2019-09 Yes 2 (two) Unive rs CHLORIDE, 2-22 times ity of BULK, MISC 20:45: daily. Medical Branch furosemide 2019-09 Yes 100mg Take 100 Un [place] (LASIX) 80 2-22 mg by ity of mg tablet 20:45: mouth daily. Medical Branch metOLazone 2019-09 Yes 10mg Take 10 mg U nivers 10 mg 2-22 by mouth ity of tablet 20:45: daily. [place] [address] Medical Branch POTASSIUM 2019-09 Yes 2 (two) Unive rs CHLORIDE, 2-22 times ity of BULK, MISC 20:45: daily. Medical Branch furosemide 2019-09 Yes 100mg Take 100 Un [place] (LASIX) 80 2-22 mg by ity of mg tablet 20:45: mouth daily. Medical Branch metOLazone 2019-09 Yes 10mg Take 10 mg U nivers 10 mg 2-22 by mouth ity of tablet 20:45: daily. [address] POTASSIUM 2019-09 Yes 2 (two) Unive rs CHLORIDE, 2-22 times ity of BULK, MISC 20:45: daily. Medical Branch furosemide 2019-09 Yes 100mg Take 100 Un [place] (LASIX) 80 2-22 mg by ity of mg tablet 20:45: mouth daily. Medical Branch metOLazone 2019-09 Yes 10mg Take 10 mg U nivers 10 mg 2-22 by mouth ity of tablet 20:45: daily. [address] [place] [address] POTASSIUM 2019-09 Yes 2 (two) Unive rs CHLORIDE, 2-22 times ity of BULK, MISC 20:45: daily. [address] Branch levothyroxi 2019-09 Yes Take by Un debby ne 50 mcg 2-22 mouth ity of tablet 20:41: daily. [address] Branch levothyroxi 2019-09 Yes Take by Un [place] ne 50 mcg 2-22 mouth ity of tablet 20:41: daily. [address] Branch levothyroxi 2019-09 Yes Take by Un [place] ne 50 mcg 2-22 mouth ity of tablet 20:41: daily. [address] levothyroxi 2019-09 Yes Take by Un [place] ne 50 mcg 2-22 mouth ity of tablet 20:41: daily. [address] levothyroxi 2019-09 Yes Take by Un [place] ne 50 mcg 2-22 mouth ity of tablet 20:41: daily. [address] Branch levothyroxi 2019- Yes Take by Un [place] ne 50 mcg 2-22 mouth ity of tablet 20:41: daily. [address] levothyroxi 2019-09 Yes Take by Un [place] ne 50 mcg 2-22 mouth ity of tablet 20:41: daily. [address] levothyroxi 2019- Yes Take by Un [place] ne 50 mcg 2-22 mouth ity of tablet 20:41: daily. [address] carvedilol 2019- Yes 25mg Take 25 mg U nivers (COREG) 25 2-22 by mouth 2 ity of mg tablet 20:41: (two) [place] 30 times Medical daily with Branch meals. carvedilol 2019-09 Yes 25mg Take 25 mg U nivers (COREG) 25 2-22 by mouth 2 ity of mg tablet 20:41: (two) [place] 30 times Medical daily with Branch meals. carvedilol 2019-09 Yes 25mg Take 25 mg U nivers (COREG) 25 2-22 by mouth 2 ity of mg tablet 20:41: (two) [place] 30 times Medical daily with Branch meals. carvedilol 2019-09 Yes 25mg Take 25 mg U nivers (COREG) 25 2-22 by mouth 2 ity of mg tablet 20:41: (two) [place] 30 times Medical daily with Branch meals. carvedilol 2019-09 Yes 25mg Take 25 mg U nivers (COREG) 25 2-22 by mouth 2 ity of mg tablet 20:41: (two) [place] 30 times Medical daily with Branch meals. carvedilol 2019- Yes 25mg Take 25 mg U nivers (COREG) 25 2-22 by mouth 2 ity of mg tablet 20:41: (two) [place] 30 times Medical daily with Branch meals. carvedilol 2019- Yes 25mg Take 25 mg U nivers (COREG) 25 2-22 by mouth 2 ity of mg tablet 20:41: (two) [place] 30 times Medical daily with Branch meals. carvedilol 2019- Yes 25mg Take 25 mg U nivers (COREG) 25 2-22 by mouth 2 ity of mg tablet 20:41: (two) [place] 30 times Medical daily with Branch meals. furosemide 2019- Yes 100mg Take 100 Un [place] (LASIX) 80 2-22 mg by ity of mg tablet 14:45: mouth daily. Medical Branch metOLazone 2019-09 Yes 10mg Take 10 mg U nivers 10 mg 2-22 by mouth ity of tablet 14:45: daily. [facility] Branch POTASSIUM 2019-09 Yes 2 (two) Unive rs CHLORIDE, 2-22 times ity of BULK, MISC 14:45: daily. [facility] furosemide 2019-09 Yes 100mg Take 100 Un [place] (LASIX) 80 2-22 mg by ity of mg tablet 14:45: mouth daily. Medical Branch metOLazone 2019-09 Yes 10mg Take 10 mg U nivers 10 mg 2-22 by mouth ity of tablet 14:45: daily. [facility] POTASSIUM 2019-09 Yes 2 (two) Unive rs CHLORIDE, 2-22 times ity of BULK, MISC 14:45: daily. [facility] levothyroxi 2019-09 Yes Take by Un debby ne 50 mcg 2-22 mouth ity of tablet 14:41: daily. [place] [facility] levothyroxi 2019-09 Yes Take by Un [place] ne 50 mcg 2-22 mouth ity of tablet 14:41: daily. [address] carvedilol 2019-09 Yes 25mg Take 25 mg U nivers (COREG) 25 2-22 by mouth 2 ity of mg tablet 14:41: (two) [place] 30 times Medical daily with Branch meals. carvedilol 2019-09 Yes 25mg Take 25 mg U nivers (COREG) 25 2-22 by mouth 2 ity of mg tablet 14:41: (two) [place] 30 times Medical daily with Branch meals. spironolact 2020-0 Yes Univer s one 25 mg 6-01 ity of tablet 00:00: [facility] spironolact 2020-0 Yes Univer s one 25 mg 6-01 ity of tablet 00:00: [facility] spironolact 2020-0 Yes Univer s one 25 mg 6-01 ity of tablet 00:00: [facility] spironolact 2020-0 Yes Univer s one 25 mg 6-01 ity of tablet 00:00: [facility] spironolact 2020-0 Yes Univer s one 25 mg 6-01 ity of tablet 00:00: [place] [facility] Branch spironolact 2020-0 Yes Univer s one 25 mg 6-01 ity of tablet 00:00: [place] [facility] spironolact 2020-0 Yes Univer s one 25 mg 6-01 ity of tablet 00:00: [place] [facility] Branch spironolact 2020-0 Yes Univer s one 25 mg 6-01 ity of tablet 00:00: [place] Medical Branch spironolact 2020-0 Yes Univer s one 25 mg 6-01 ity of tablet 00:00: [place] [facility] Branch spironolact 2020-0 Yes Univer s one 25 mg 6-01 ity of tablet 00:00: [place] [address] Medical Branch GABAPENTIN 2019-1 Yes [id number] TAKE 1 U nivers 300 mg 2-19 CAPSULE AT ity of capsule 00:00: BEDTIME [place] [address] Medical Branch GABAPENTIN 2019-1 Yes [id number] TAKE 1 U nivers 300 mg 2-19 CAPSULE AT ity of capsule 00:00: BEDTIME [place] [address] Medical Branch GABAPENTIN 2019-1 Yes [id number] TAKE 1 U nivers 300 mg 2-19 CAPSULE AT ity of capsule 00:00: BEDTIME [place] [address] Medical Branch GABAPENTIN 2019-1 Yes [id number] TAKE 1 U nivers 300 mg 2-19 CAPSULE AT ity of capsule 00:00: BEDTIME [place] [address] Medical Branch GABAPENTIN 2019-1 Yes [id number] TAKE 1 U nivers 300 mg 2-19 CAPSULE AT ity of capsule 00:00: BEDTIME [place] [address] Medical Branch GABAPENTIN 2019-1 Yes [id number] TAKE 1 U nivers 300 mg 2-19 CAPSULE AT ity of capsule 00:00: BEDTIME [place] [address] Medical Branch GABAPENTIN 2019-1 Yes [id number] TAKE 1 U nivers 300 mg 2-19 CAPSULE AT ity of capsule 00:00: BEDTIME [place] [address] Medical Branch GABAPENTIN 2019-1 Yes [id number] TAKE 1 U nivers 300 mg 2-19 CAPSULE AT ity of capsule 00:00: BEDTIME [place] [address] Medical Branch GABAPENTIN 2019-1 Yes [id number] TAKE 1 U nivers 300 mg 2-19 CAPSULE AT ity of capsule 00:00: BEDTIME [place] [address] Medical Branch GABAPENTIN 2019-1 Yes [id number] TAKE 1 U nivers 300 mg 2-19 CAPSULE AT ity of capsule 00:00: BEDTIME [place] 00 Medical Branch GABAPENTIN 2019-1 Yes [id number] TAKE 1 U nivers 300 mg 2-19 CAPSULE AT ity of capsule 00:00: BEDTIME [place] 00 Medical Branch GABAPENTIN 2019-1 Yes [id number] TAKE 1 U nivers 300 mg 2-19 CAPSULE AT ity of capsule 00:00: BEDTIME [place] [facility] Branch GABAPENTIN 2019-1 Yes [id number] TAKE 1 U nivers 300 mg 2-19 CAPSULE AT ity of capsule 00:00: BEDTIME [place] [facility] Branch GABAPENTIN 2019-1 Yes [id number] TAKE 1 U nivers 300 mg 2-19 CAPSULE AT ity of capsule 00:00: BEDTIME [place] 00 Medical Branch GABAPENTIN 2019-1 Yes [id number] TAKE 1 U nivers 300 mg 2-19 CAPSULE AT ity of capsule 00:00: BEDTIME [place] Medical Branch ethacrynic 2019-1 Yes [id number] 50mg Take 2 Univers acid 25 mg 2-03 02 tablets by ity of tablet 00:00: mouth [place] 00 every Medical morning Branch and evening. ethacrynic 2019-1 Yes [id number] 50mg Take 2 Univers acid 25 mg 2-03 02 tablets by ity of tablet 00:00: mouth [place] 00 every Medical morning Branch and evening. ethacrynic 2019-1 Yes [id number] 50mg Take 2 Univers acid 25 mg 2-03 02 tablets by ity of tablet 00:00: mouth [place] 00 every Medical morning Branch and evening. ethacrynic 2019-1 Yes [id number] 50mg Take 2 Univers acid 25 mg 2-03 02 tablets by ity of tablet 00:00: mouth [place] 00 every Medical morning Branch and evening. ethacrynic 2019-1 Yes [id number] 50mg Take 2 Univers acid 25 mg 2-03 02 tablets by ity of tablet 00:00: mouth [place] 00 every Medical morning Branch and evening. ethacrynic 2019-1 Yes [id number] 50mg Take 2 Univers acid 25 mg 2-03 02 tablets by ity of tablet 00:00: mouth [place] 00 every Medical morning Branch and evening. ethacrynic 2019-1 Yes [id number] 50mg Take 2 Univers acid 25 mg 2-03 02 tablets by ity of tablet 00:00: mouth [place] 00 every Medical morning Branch and evening. ethacrynic 2019-1 Yes [id number] 50mg Take 2 Univers acid 25 mg 2-03 02 tablets by ity of tablet 00:00: mouth [place] 00 every Medical morning Branch and evening. ethacrynic 2018-09 Yes [id number] 50mg Take 2 Univers acid 25 mg 2-03 02 tablets by ity of tablet 00:00: mouth [place] 00 every Medical morning Branch and evening. ethacrynic 2018-09 Yes [id number] 50mg Take 2 Univers acid 25 mg 2-03 02 tablets by ity of tablet 00:00: mouth [place] 00 every Medical morning Branch and evening. ethacrynic 2018-09 Yes [id number] 50mg Take 2 Univers acid 25 mg 2-03 02 tablets by ity of tablet 00:00: mouth [place] 00 every Medical morning Branch and evening. ethacrynic 2018-09 Yes [id number] 50mg Take 2 Univers acid 25 mg 2-03 02 tablets by ity of tablet 00:00: mouth [place] 00 every Medical morning Branch and evening. ethacrynic 2018-09 Yes [id number] 50mg Take 2 Univers acid 25 mg 2-03 02 tablets by ity of tablet 00:00: mouth [place] 00 every Medical morning Branch and evening. ethacrynic 2018-09 Yes [id number] 50mg Take 2 Univers acid 25 mg 2-03 02 tablets by ity of tablet 00:00: mouth [place] 00 every Medical morning Branch and evening. ethacrynic 2018-09 Yes [id number] 50mg Take 2 Univers acid 25 mg 2-03 02 tablets by ity of tablet 00:00: mouth [place] 00 every Medical morning Branch and evening. carvedilol 2018-09 Yes 25mg Take 25 mg U nivers (COREG) 25 0-29 by mouth 2 ity of mg tablet 18:56: (two) [place] [address] times Medical daily with Branch meals. Levothyroxi 2018- Yes Take by Un debby ne 25 mcg 0-29 mouth. ity of capsule 18:56: [place] [address] Medical Branch carvedilol 2018- Yes 25mg Take 25 mg U nivers (COREG) 25 0-29 by mouth 2 ity of mg tablet 18:56: (two) [place] 38 times Medical daily with Branch meals. Levothyroxi 2018- Yes Take by Un [place] ne 25 mcg 0-29 mouth. ity of capsule 18:56: [place] 38 Medical Branch carvedilol 2018-09 Yes 25mg Take 25 mg U nivers (COREG) 25 0-29 by mouth 2 ity of mg tablet 18:56: (two) [place] [address] times Medical daily with Branch meals. Levothyroxi 2018-09 Yes Take by Un [place] ne 25 mcg 0-29 mouth. ity of capsule 18:56: [place] [address] Medical Branch carvedilol 2018-09 Yes 25mg Take 25 mg U nivers (COREG) 25 0-29 by mouth 2 ity of mg tablet 18:56: (two) [place] [address] times Medical daily with Branch meals. Levothyroxi 2018-09 Yes Take by Un [place] ne 25 mcg 0-29 mouth. ity of capsule 18:56: [place] [address] Medical Branch carvedilol 2018-09 Yes 25mg Take 25 mg U nivers (COREG) 25 0-29 by mouth 2 ity of mg tablet 18:56: (two) [place] [address] times Medical daily with Branch meals. Levothyroxi 2018-09 Yes Take by Un [place] ne 25 mcg 0-29 mouth. ity of capsule 18:56: [place] [address] Medical Branch tamsulosin 2018-0 Yes .4mg Take [...] tablet 6-25 TABLET ity of 00:00: DAILY [place] [id number] 0 Yes TAKE 1 Unive rs mg tablet 6-25 TABLET ity of 00:00: DAILY [place] [address] 0 Yes TAKE 1 Unive rs mg tablet 6-25 TABLET ity of 00:00: DAILY [place] [address] 0 Yes TAKE 1 Unive rs mg tablet 6-25 TABLET ity of 00:00: DAILY [place] [address] 0 Yes TAKE 1 Unive rs mg tablet 6-25 TABLET ity of 00:00: DAILY [place] [address] 0 Yes TAKE 1 Unive rs mg tablet 6-25 TABLET ity of 00:00: DAILY [place] [address] 0 Yes TAKE 1 Unive rs mg tablet 6-25 TABLET ity of 00:00: DAILY [place] [address] 0 Yes TAKE 1 Unive rs mg tablet 6-25 TABLET ity of 00:00: DAILY [place] [address] 0 Yes TAKE 1 Unive rs mg tablet 6-25 TABLET ity of 00:00: DAILY [place] [address] 0 Yes TAKE 1 Unive rs mg tablet 6-25 TABLET ity of 00:00: DAILY [place] [address] 0 Yes TAKE 1 Unive rs mg tablet 6-25 TABLET ity of 00:00: DAILY [place] [facility] Insulin 2017- Yes [id number] 20U inject 20 U nivers Glargine 1-06 Units ity of (LANTUS 00:00: under the [place] [facility] 00 skin Medical U-100 daily. Branch INSULIN) 100 unit/mL (3 mL) injection insulin 2017-09 Yes [id number] 10U inject 10 U nivers aspart 1-06 Units ity of U-100 00:00: under the [place] (NOVOLOG 00 skin 2 Medical FLEXPEN (two) Branch U-100 times INSULIN) daily 100 unit/mL before injection breakfast and dinner. Insulin 2017-09 Yes [id number] 20U inject 20 U nivers Glargine 1-06 Units ity of (LANTUS 00:00: under the [place] [facility] 00 skin Medical U-100 daily. Branch INSULIN) 100 unit/mL (3 mL) injection insulin 2017-09 Yes [id number] 10U inject 10 U nivers aspart 1-06 Units ity of U-100 00:00: under the [place] (NOVOLOG 00 skin 2 Medical FLEXPEN (two) Branch U-100 times INSULIN) daily 100 unit/mL before injection breakfast and dinner. Insulin 2017-09 Yes [id number] 20U inject 20 U nivers Glargine 1-06 Units ity of (LANTUS 00:00: under the [place] [facility] 00 skin Medical U-100 daily. Branch INSULIN) 100 unit/mL (3 mL) injection insulin 2017-09 Yes [id number] 10U inject 10 U nivers aspart 1-06 Units ity of U-100 00:00: under the [place] (NOVOLOG 00 skin 2 Medical FLEXPEN (two) Branch U-100 times INSULIN) daily 100 unit/mL before injection breakfast and dinner. Insulin 2017-09 Yes [id number] 20U inject 20 U nivers Glargine 1-06 Units ity of (LANTUS 00:00: under the [place] [address] skin Medical U-100 daily. Branch INSULIN) 100 unit/mL (3 mL) injection insulin 2017-09 Yes [id number] 10U inject 10 U nivers aspart 1-06 Units ity of U-100 00:00: under the [place] (NOVOLOG 00 skin 2 Medical FLEXPEN (two) Branch U-100 times INSULIN) daily 100 unit/mL before injection breakfast and dinner. Insulin 2017-09 Yes [id number] 20U inject 20 U nivers Glargine 1-06 Units ity of (LANTUS 00:00: under the [place] [address] skin Medical U-100 daily. Branch INSULIN) 100 unit/mL (3 mL) injection insulin 2017-09 Yes [id number] 10U inject 10 U nivers aspart 1-06 Units ity of U-100 00:00: under the [place] (NOVOLOG 00 skin 2 Medical FLEXPEN (two) Branch U-100 times INSULIN) daily 100 unit/mL before injection breakfast and dinner. Insulin 2017-09 Yes [id number] 20U inject 20 U nivers Glargine 1-06 Units ity of (LANTUS 00:00: under the [place] SOLOSTAR 00 skin Medical U-100 daily. Branch INSULIN) 100 unit/mL (3 mL) injection insulin 2017-09 Yes [id number] 10U inject 10 U nivers aspart 1-06 Units ity of U-100 00:00: under the [place] (NOVOLOG 00 skin 2 Medical FLEXPEN (two) Branch U-100 times INSULIN) daily 100 unit/mL before injection breakfast and dinner. Insulin 2017-09 Yes [id number] 20U inject 20 U nivers Glargine 1-06 Units ity of (LANTUS 00:00: under the [place] SOLOSTAR 00 skin Medical U-100 daily. Branch INSULIN) 100 unit/mL (3 mL) injection insulin 2017-09 Yes [id number] 10U inject 10 U nivers aspart 1-06 Units ity of U-100 00:00: under the [place] (NOVOLOG 00 skin 2 Medical FLEXPEN (two) Branch U-100 times INSULIN) daily 100 unit/mL before injection breakfast and dinner. Insulin 2017-09 Yes [id number] 20U inject 20 U nivers Glargine 1-06 Units ity of (LANTUS 00:00: under the [place] [address] skin Medical U-100 daily. Branch INSULIN) 100 unit/mL (3 mL) injection Insulin 2017-09 Yes [id number] 20U inject 20 U nivers Glargine 1-06 Units ity of (LANTUS 00:00: under the [place] [address] skin Medical U-100 daily. Branch INSULIN) 100 unit/mL (3 mL) injection insulin 2017-09 Yes [id number] 10U inject 10 U nivers aspart 1-06 Units ity of U-100 00:00: under the [place] (NOVOLOG 00 skin 2 Medical FLEXPEN (two) Branch U-100 times INSULIN) daily 100 unit/mL before injection breakfast and dinner. insulin 2017-09 Yes [id number] 10U inject 10 U nivers aspart 1-06 Units ity of U-100 00:00: under the [place] (NOVOLOG 00 skin 2 Medical FLEXPEN (two) Branch U-100 times INSULIN) daily 100 unit/mL before injection breakfast and dinner. Insulin 2017-09 Yes [id number] 20U inject 20 U nivers Glargine 1-06 Units ity of (LANTUS 00:00: under the [place] [facility] 00 skin Medical U-100 daily. Branch INSULIN) 100 unit/mL (3 mL) injection insulin 2017-09 Yes [id number] 10U inject 10 U nivers aspart 1-06 Units ity of U-100 00:00: under the [place] (NOVOLOG 00 skin 2 Medical FLEXPEN (two) Branch U-100 times INSULIN) daily 100 unit/mL before injection breakfast and dinner. Insulin 2017-09 Yes [id number] 20U inject 20 U nivers Glargine 1-06 Units ity of (LANTUS 00:00: under the [place] [facility]OSTAR 00 skin Medical U-100 daily. Branch INSULIN) 100 unit/mL (3 mL) injection insulin 2017-09 Yes [id number] 10U inject 10 U nivers aspart 1-06 Units ity of U-100 00:00: under the [place] (NOVOLOG 00 skin 2 Medical FLEXPEN (two) Branch U-100 times INSULIN) daily 100 unit/mL before injection breakfast and dinner. Insulin 2017-09 Yes [id number] 20U inject 20 U nivers Glargine 1-06 Units ity of (LANTUS 00:00: under the [place] [address] skin Medical U-100 daily. Branch INSULIN) 100 unit/mL (3 mL) injection insulin 2017-09 Yes [id number] 10U inject 10 U nivers aspart 1-06 Units ity of U-100 00:00: under the [place] (NOVOLOG 00 skin 2 Medical FLEXPEN (two) Branch U-100 times INSULIN) daily 100 unit/mL before injection breakfast and dinner. Insulin 2017-09 Yes [id number] 20U inject 20 U nivers Glargine 1-06 Units ity of (LANTUS 00:00: under the [place] [address] skin Medical U-100 daily. Branch INSULIN) 100 unit/mL (3 mL) injection insulin 2017-09 Yes [id number] 10U inject 10 U nivers aspart 1-06 Units ity of U-100 00:00: under the [place] (NOVOLOG 00 skin 2 Medical FLEXPEN (two) Branch U-100 times INSULIN) daily 100 unit/mL before injection breakfast and dinner. Insulin 2017-09 Yes [id number] 20U inject 20 U nivers Glargine 1-06 Units ity of (LANTUS 00:00: under the [place] [facility] 00 skin Medical U-100 daily. Branch INSULIN) 100 unit/mL (3 mL) injection insulin 2017-09 Yes [id number] 10U inject 10 U nivers aspart 1-06 Units ity of U-100 00:00: under the [place] (NOVOLOG 00 skin 2 Medical FLEXPEN (two) Branch U-100 times INSULIN) daily 100 unit/mL before injection breakfast and dinner. Insulin 2017-09 Yes [id number] 20U inject 20 U nivers Glargine 1-06 Units ity of (LANTUS 00:00: under the [place] SOLOSTAR 00 skin Medical U-100 daily. Branch INSULIN) 100 unit/mL (3 mL) injection insulin 2017-09 Yes [id number] 10U inject 10 U nivers aspart 1-06 Units ity of U-100 00:00: under the [place] (NOVOLOG 00 skin 2 Medical FLEXPEN (two) Branch U-100 times INSULIN) daily 100 unit/mL before injection breakfast and dinner. HydrALAZINE HydrALAZINE Yes Michael [address] [facility] HCl HCl 8 [place] [facility] ATORVASTATI Yes [id number] TAKE 1 [facility] N 40 mg 6-15 TABLET AT ity of tablet 00:00: BEDTIME [place] [facility] ATORVASTATI Yes [id number] TAKE 1 Univers N 40 mg 6-15 TABLET AT ity of tablet 00:00: BEDTIME [place] [facility] ATORVASTATI Yes [id number] TAKE 1 Univers N 40 mg 6-15 TABLET AT ity of tablet 00:00: BEDTIME [place] [facility] ATORVASTATI Yes [id number] TAKE 1 Univers N 40 mg 6-15 TABLET AT ity of tablet 00:00: BEDTIME [place] [facility] ATORVASTATI Yes [id number] TAKE 1 Univers N 40 mg 6-15 TABLET AT ity of tablet 00:00: BEDTIME [place] [facility] ATORVASTATI Yes [id number] TAKE 1 Univers N 40 mg 6-15 TABLET AT ity of tablet 00:00: BEDTIME [address] ATORVASTATI Yes [id number] TAKE 1 Univers N 40 mg 6-15 TABLET AT ity of tablet 00:00: BEDTIME [address] ATORVASTATI Yes [id number] TAKE 1 Univers N 40 mg 6-15 TABLET AT ity of tablet 00:00: BEDTIME [place] [facility] Yes [id number] TAKE 1 Univers N 40 mg 6-15 TABLET AT ity of tablet 00:00: BEDTIME [place] [facility]-0 Yes [id number] TAKE 1 Univers N 40 mg 6-15 TABLET AT ity of tablet 00:00: BEDTIME [place] [facility] 2017-0 Yes [id number] TAKE 1 Univers N 40 mg 6-15 TABLET AT ity of tablet 00:00: BEDTIME [place] [facility]-0 Yes [id number] TAKE 1 Univers N 40 mg 6-15 TABLET AT ity of tablet 00:00: BEDTIME [place] [facility] 2017-0 Yes [id number] TAKE 1 Univers N 40 mg 6-15 TABLET AT ity of tablet 00:00: BEDTIME [place] [facility] 2017-0 Yes [id number] TAKE 1 Univers N 40 mg 6-15 TABLET AT ity of tablet 00:00: BEDTIME [place] [facility] 2017-0 Yes [id number] TAKE 1 Univers N 40 mg 6-15 TABLET AT ity of tablet 00:00: BEDTIME [place] [facility] omeprazole 2017-0 Yes TAKE ONE Uni vers 20 mg 9-23 (1) ity [place] capsule 00:[place] Medical DAILY. [place] omeprazole 2016-0 Yes TAKE ONE Uni vers 20 mg 9-23 (1) ity of capsule 00:00[place] Medical DAILY. [place] omeprazole 2016-0 Yes TAKE ONE Uni vers 20 mg 9-23 (1) ity of capsule 00:00[place] BY [place] Medical DAILY. Branch omeprazole 2017-0 Yes TAKE ONE Uni vers 20 mg 9-23 (1) ity of capsule 00:00: [place] BY [place]OUTH Medical DAILY. [place] omeprazole 2016-0 Yes TAKE ONE Uni vers 20 mg 9-23 (1) ity of capsule 00:00: [place] 00 BY [place]OUTH Medical DAILY. [place] omeprazole 2016-0 Yes TAKE ONE [place] vers [...] [place] 00 BY [place] DAILY. [place] omeprazole Yes TAKE ONE Uni vers 20 mg 9-23 (1) ity of capsule 00:00: [place] 00 BY [place]OUTH Medical DAILY. 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) 31 Branch X 5/16 " [place] Insulin 2014-09 Yes Use as Univers [place], 2-22 directed, ity of Disposable, 00:00: [place] (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) 31 Branch X 5/16 " [place] Insulin 2014- Yes Use as Univers [place], 2-22 directed, ity of Disposable, 00:00: [place] (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) 31 Branch X 5/16 " [place] Insulin 2014-09 Yes Use as Univers [place], 2-22 directed, ity of Disposable, 00:00: [place] (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) 31 Branch X 5/16 " [place] Insulin 2014-09 Yes Use as Univers [place], 2-22 directed, ity of Disposable, 00:00: [place] (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) 31 Branch X 5/16 " [place] Insulin 2014-09 Yes Use as Univers [place], 2-22 directed, ity of Disposable, 00:00: [place] (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) 31 Branch X 5/16 " [place] Insulin 2014-09 Yes Use as Univers [place], 2-22 directed, ity of Disposable, 00:00: [place] (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) 31 Branch X 5/16 " [place] Insulin 2014-09 Yes Use as Univers [place], 2-22 directed, ity of Disposable, 00:00: [place] (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) 31 Branch X /16 " [place] Insulin 2014-09 Yes Use as Univers [place], 2-22 directed, ity of Disposable, 00:00: [place] (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) 31 Branch X 16 " [place] Insulin 2014-09 Yes Use as Univers [place], 2-22 directed, ity of Disposable, 00:00: [place] (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) 31 Branch X /16 " [place] Insulin 2014-09 Yes Use as Univers [place], 2-22 directed, ity of Disposable, 00:00: [place] (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) 31 Branch X 5/16 " [place] Insulin 2014-09 Yes Use as Univers [place], 2-22 directed, ity of Disposable, 00:00: [place] (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) 31 Branch X 16 " [place] Insulin 2014-09 Yes Use as Univers [place], 2-22 directed, ity of Disposable, 00:00: [place] (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) 31 Branch X 5/16 " [place] Insulin 2014-09 Yes Use as Univers [place], 2-22 directed, ity of Disposable, 00:00: [place] (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) 31 Branch X 5/16 " [place] NovoLog NovoLog Yes Michael as [facility] [...] ne Sodium [place] Auth: Rx [facility] Ref[facility][id number] [facility] [id number]) [facility] Flomax Flomax Yes Michael [address] [facility] 30 minutes [facility] - after the [facility] same meal l each day Outpati ent Clinics Januvia Januvia Yes Michael as [facility] directed [facility] Immunizations Ordered Filled Immunization Date Status Comments [facility] e Immunization Name Name Influenza Virus 2020-07-02 Completed Universit y of Vaccine 00:00:00 [facility] Influenza Virus 2020-07-02 Completed Universit y of Vaccine 00:00:00 [facility] Influenza Virus 2020-07-02 Completed Universit y of Vaccine 00:00:00 [facility] Influenza Virus 2020-07-02 Completed Universit y of Vaccine 00:00:00 [facility] Influenza Virus 2020-07-02 Completed Universit y of Vaccine 00:00:00 [facility] Influenza Virus 2020-07-02 Completed Universit y of Vaccine 00:00:00 [facility] Influenza Virus 2020-07-02 Completed Universit y of Vaccine 00:00:00 [facility] Influenza Virus 2020-07-02 Completed Universit y of Vaccine 00:00:00 [facility] Influenza Virus 2020-07-02 Completed Universit y of Vaccine 00:00:00 [facility] Influenza Virus 2020-07-02 Completed Universit y of Vaccine 00:00:00 [facility] TDAP 2019-08-12 Completed University of 00:00:00 [facility] TDAP 2019-08-12 Completed University of 00:00:00 [facility] Branch TDAP 2019-08-12 Completed University of 00:00:00 [facility] TDAP 2019-08-12 Completed University of 00:00:00 [facility] TDAP 2019-08-12 Completed University of 00:00:00 [facility] TDAP 2019-08-12 Completed University of 00:00:00 [facility] TDAP 2019-08-12 Completed University of 00:00:00 [facility] TDAP 2019-08-12 Completed University of 00:00:00 [facility] TDAP 2019-08-12 Completed University of 00:00:00 [facility] TDAP 2019-08-12 Completed University of 00:00:00 [facility] Influenza High Dose 2019-07-12 Completed Unive rsity of 00:00:00 [facility] Influenza High Dose 2019-07-12 Completed Unive rsity of 00:00:00 [facility] Influenza High Dose 2019-07-12 Completed Unive rsity of 00:00:00 [facility] Influenza High Dose 2019-07-12 Completed Unive rsity of 00:00:00 [facility] Influenza High Dose 2019-07-12 Completed Unive rsity of 00:00:00 [facility] Influenza High Dose 2019-07-12 Completed Unive rsity of 00:00:00 [facility] Influenza High Dose 2019-07-12 Completed Unive rsity of 00:00:00 [facility] Influenza High Dose 2019-07-12 Completed Unive rsity of 00:00:00 [facility] Influenza High Dose 2019-07-12 Completed Unive rsity of 00:00:00 [facility] Influenza High Dose 2019-07-12 Completed Unive rsity of 00:00:00 [facility] Influenza High Dose 2019-07-12 Completed Unive rsity of 00:00:00 [facility] Influenza High Dose 2019-07-12 Completed Unive rsity of 00:00:00 [facility] Influenza High Dose 2019-07-12 Completed Unive rsity of 00:00:00 [facility] Influenza High Dose 2019-07-12 Completed Unive rsity of 00:00:00 [facility] Influenza High Dose 2019-07-12 Completed Unive rsity of 00:00:00 [facility] Zoster Vaccine 2018-12-30 Completed University of Recombinant 00:00:00 [facility] Zoster Vaccine 2018-12-30 Completed University of Recombinant 00:00:00 [facility] Zoster Vaccine 2018-12-30 Completed University of Recombinant 00:00:00 [facility] Zoster Vaccine 2018-12-30 Completed University of Recombinant 00:00:00 [facility] Zoster Vaccine 2018-12-30 Completed University of Recombinant 00:00:00 [facility] Zoster Vaccine 2018-12-30 Completed University of Recombinant 00:00:00 [facility] Zoster Vaccine 2018-12-30 Completed University of Recombinant 00:00:00 [facility] Zoster Vaccine 2018-12-30 Completed University of Recombinant 00:00:00 [facility] Zoster Vaccine 2018-12-30 Completed University of Recombinant 00:00:00 [facility] Zoster Vaccine 2018-12-30 Completed University of Recombinant 00:00:00 [facility] Zoster Vaccine 2018-09-18 Completed University of Recombinant 00:00:00 [facility] Zoster Vaccine 2018-09-18 Completed University of Recombinant 00:00:00 [facility] Zoster Vaccine 2018-09-18 Completed University of Recombinant 00:00:00 [facility] Zoster Vaccine 2018-09-18 Completed University of Recombinant 00:00:00 [facility] Zoster Vaccine 2018-09-18 Completed University of Recombinant 00:00:00 [facility] Zoster Vaccine 2018-09-18 Completed University of Recombinant 00:00:00 [facility] Zoster Vaccine 2018-09-18 Completed University of Recombinant 00:00:00 [facility] Zoster Vaccine 2018-09-18 Completed University of Recombinant 00:00:00 [facility] Zoster Vaccine 2018-09-18 Completed University of Recombinant 00:00:00 [facility] Zoster Vaccine 2018-09-18 Completed University of Recombinant 00:00:00 [facility] Pneumococcal 13 2018-07-27 Completed Universit y of Conjugate, PCV13 00:00:00 [place] [facility] [place] (Prevnar 13) Branch Pneumococcal 13 2018-07-27 Completed Universit y of Conjugate, PCV13 00:00:00 [place] (Prevnar 13) Branch Pneumococcal 13 2018-07-27 Completed Universit y of Conjugate, PCV13 00:00:00 [facility] dical (Prevnar 13) Branch Pneumococcal 13 2018-07-27 [...] Completed Universit y of Conjugate, PCV13 00:00:00 [place] Me dical (Prevnar 13) Branch Vital Signs Vital Name Observation Time Observation Value Comments Source Systolic blood 2020-09-13 20:39:00 130 mm[Hg] Univer sity of pressure [facility] Diastolic blood 2020-09-13 20:39:00 60 mm[Hg] Unive rsity of [facility] Heart rate 2020-09-13 20:39:00 71 /min [facility] Respiratory rate 2020-09-13 20:39:00 20 /min Univ ersity [facility] Body weight 2020-09-13 20:39:00 107.049 kg [facility] BMI 2020-09-13 20:39:00 36.96 kg/m2 Universi ty [facility] [place] [facility] Oxygen saturation in 2020-09-13 20:39:00 91 /min University of Arterial blood by [facility] Pulse oximetry Branch Systolic blood 2020-09-13 20:39:00 130 mm[Hg] Univer sity of pressure [place] [facility] Diastolic blood 2020-09-13 20:39:00 60 mm[Hg] Unive rsity of pressure [place] [facility] Heart rate 2020-09-13 20:39:00 71 /min [facility]i ty [facility] [place] [facility] Respiratory rate 2020-09-13 20:39:00 20 /min Univ ersity [facility] [place] [facility] Body weight 2020-09-13 20:39:00 107.049 kg [facility]i ty [facility] [place] [facility] BMI 2020-09-13 20:39:00 36.96 kg/m2 [facility] [place] [facility] Oxygen saturation in 2020-09-13 20:39:00 91 /min University of Arterial blood by [facility] Pulse oximetry Branch Procedures Procedure Date / Time Performed Performing Clinician Sour e EXTERNAL PROVIDER 2021-06-20 05:01:00 Doctor Unassigned, No Univ [facility] [place] RECORDS Name Medical Branch EXTERNAL PROVIDER 2021-05-23 05:01:00 Doctor Unassigned, No Univ ersity [facility] RECORDS Name Medical Branch EXTERNAL PROVIDER - 2020-09-21 06:01:00 Doctor Unassigned, No [facility] [place] ADC CARDIOLOGY Name Medical Branch CONSENT/REFUSAL FOR 2020-09-13 20:18:19 Doctor Unassigned, No [facility] [place] DIAGNOSIS AND Name Medical Branch TREATMENT MEDICAL 2020-08-10 06:01:00 Doctor Unassigned, No [facility] [place] RELEASE/CLEARANCE Name Medical Branch FORMS SCANNED LAB RESULTS 2019-11-02 06:01:00 Doctor Unassigned, No [facility] [place] Name Medical Branch Encounters Start End Encounter Admission Attending Care Care Encounter Source Date/Time Date/Time Type Type Clinicians Facility Department ID 2021-09-19 2021-09-19 Outpatient R CIRILO SDRICO [facility] [id number] Univers 13:20:00 13:20:00 JANUSZJUN [id number] ity o f [facility] Branch 2021-08-22 2021-08-22 Telephone Cirilo [facility] [id number] Univers 00:00:00 00:00:00 Qiangjun [place] [id number] ity of [place] [id number] PROFESS[place] [phone] Oh dical NAL 0[address] [facility] 2021-06-20 2021-06-20 Orders Doctor MARAH [id number] Univers 00:00:00 00:00:00 Only Unassigned, NIK [id number] ity of [place] [facility] [id number] [place] [phone] [address] 2021-05-23 2021-05-23 Orders Doctor MARAH [id number] Univers 00:00:00 00:00:00 Only Unassigned, NIK [id number] ity of [place] [facility] [id number] [place] as [phone] [address] 2021-03-30 2021-03-30 Refill [facility] [id number] Univers 00:00:00 00:00:00 Qiangjun [place] [id number] ity [id number] Profess[place] [phone] Oh dical nal 9 [facility] 2020-10-20 2020-10-20 Telephone [facility] [id number] Univers 00:00:00 00:00:00 Qiangjun [place] [id number] ity [id number] Profess[place] [phone] Oh dical nal 9 [facility] 2020-09-21 2020-09-21 Orders Doctor MARAH [id number] Univers 00:00:00 00:00:00 Only Unassigned, NIK [id number] ity of [place] [facility] [id number] [place] as [phone] [address] 2020-09-13 2020-09-13 Office [facility] [id number] Univers 14:18:45 15:01:50 Visit Riley [place] [id number] ity [id number] Profess[place] [phone] [address] 2020-09-13 2020-09-13 Office [facility] [id number] 14:18:45 15:01:50 Visit Riley [place] [id number] [place] [id number] Professio [phone] [address] 2020-09-13 2020-09-13 Outpatient [facility] [id number] Univers 14:20:00 14:20:00 JANUSZJOSHUA [id number] ity o f [facility] 2020-09-13 2020-09-13 Outpatient [facility] [id number] Univers 14:20:00 14:20:00 RILEY camejo o f [facility] 2020-09-13 2020-09-13 Orders Doctor MARAH [id number] Univers 00:00:00 00:00:00 Only Unassigned, NIK [id number] ity of [place] [facility] [id number] [place] as [phone] [address] 2020-08-11 2020-08-11 Telephone [facility] [id number] Univers 00:00:00 00:00:00 Januszjoshua [place] [id number] ity [id number] Profess[place] [phone] [address] 2020-08-10 2020-08-10 Orders Doctor MARAH [id number] Univers 00:00:00 00:00:00 Only Unassigned, NIK [id number] ity of [place] [facility] [id number] [place] [phone] [address] 2019-11-02 2019-11-02 Orders Doctor MARAH [id number] Univers 00:00:00 00:00:00 Only Unassigned, NIK [id number] ity of [place] [facility] [id number] [place] [phone] [facility] 009 Branch 2019-06-16 2019-06-16 Outpatient Gayatri GR [facility] RAD [id number] 15:18:00 23:59:00 ANTHONY [facility] 2018-04-30 2018-04-30 Outpatient Bekah Vera [id number] 13:30:00 13:30:00 [facility] Clinics Results Test Description Test Time Test Comments Results Result [facility] e Comments NM LUNG (V/Q ) 2019-06-16 Radionuclide SCAN 16:46:52 ventilation/perfusion lung scanLocation Code: [id number]: Shortness of breathCOMPARISON: NoneCOMMENT: Routine images of [...] Test Item Value Reference Range Interpretation Comme [facility] POC-GLUCOSE METER (ISHAAN) (test 157 mg/dL 70-110 H TESTED AT [facility] 0170 code = 1538) [facility] [id number]
[2021-09-17 13:38] LABS: Absolute Lymphocytes (CBC) 1.1 K/uL (0.7-4.9); Lymphocytes % 13.3 % (15.3-44.8); MPV 7.6 fL (7.6-11.3); Protime INR 1.15; RBC Red Blood Cell Count 3.95 M/uL (4.33-5.43)
[2021-09-17] MEDS ORDERED: FUROSEMIDE 20 MG/ 2ML VIAL ONE (13:49)
[2021-09-17 14:19] LABS: ALT/SGPT 20 U/L (12-78); AST/SGOT 13 U/L (15-37); Albumin 3.1 g/dL (3.4-5.0); Alkaline Phosphatase 106 U/L (45-117); BUN Blood Urea Nitrogen 47 mg/dL (7-18); Bicarbonate 34 mmol/L (21-32); Bilirubin Direct 0.2 mg/dL (0-0.2); Bilirubin Total 0.5 mg/dL (0.2-1.0); Glucose Level 60 mg/dL (74-106); Magnesium 3.2 mg/dL (1.8-2.4); NT PRO-BNP 2566 pg/mL (<450); Potassium 3.7 mmol/L (3.5-5.1); Protein, Total 8.1 g/dL (6.4-8.2); Sodium Level 136 mmol/L (136-145); Troponin (Emerg Dept Use Only) < 0.02 ng/mL (0.0-0.045)
--- NOTE | 2021-09-17 14:23 | RAD REPORT ---
EXAM DESCRIPTION: RAD - Chest Single View - 09/17/2021 12:59 pm CLINICAL HISTORY: CHEST PAIN Chest pain. COMPARISON: Chest Single View dated 09/07/2021; Chest Single View dated 09/03/2020; Chest Single Vie w dated 09/01/2020; Chest Single View dated 12/05/2019 FINDINGS: Portable technique limits examination quality. Moderate bilateral pulmonary opacities are present likely representing pulmonary edema or pneumonia. The heart is moderately enlarged in size. Tortuous thoracic aorta is seen.
--- NOTE | 2021-09-17 14:34 | ER ---
Nurse's Notes [facility] Name: Jimmy Soto Age: 85 yrs Sex: Male : 1935 Arrival Date: 09/17/2021 Time: 12:13 Bed 17 Private MD: Diagnosis: Hypoxemia;Acute systolic (congestive) heart failure Presentation: 09/17 12:41 Chief complaint: Patient states: Stopped lasix last admission here for kidney problems. ll1 Released 8 days ago. Never re started the lasix. SOB, leg swelling for 1 week. Coronavirus screen: Vaccine status: Patient reports receiving the 1st dose of the Covid vaccine. Client denies travel out of the [place] in the last 14 days. At this time, the client does not indicate any symptoms associated with coronavirus-19. Ebola Screen: Patient denies travel to an Ebola-affected area in the 21 days before illness onset. Initial Sepsis Screen: Does the patient meet any 2 criteria? No. Patient's initial sepsis screen is negative. Does the patient have a suspected source of infection? Yes: Other: fluid overload. Risk Assessment: Do you want to hurt yourself or someone else? Patient reports no desire to harm self or others. Onset of symptoms was September 11, 2021. 12:41 Method Of Arrival: Wheelchair ll1 12:41 Acuity: ART 2 ll1 Historical: - Allergies: 12:44 No Known Allergies; ll1 - PMHx: 12:44 Cellulitis; Diabetes - IDDM; Hyperlipidemia; CHF; Hypertension; leg swelling/sores; ll1 Pneumonia; - PSHx: 12:44 hip SX; ll1 - Immunization history:: Client reports receiving the Korey \T\ Korey single-dose vaccine. Flu vaccine is up to date. - Social history:: Smoking status: Patient/guardian denies using tobacco, the patient reports quitting approximately 30 years ago, Patient/guardian denies using alcohol, street drugs, The patient lives with family. - Family history:: not pertinent. Screenin:19 Abuse screen: Denies threats or abuse. Nutritional screening: No deficits noted. vg1 Tuberculosis screening: No symptoms or risk factors identified. Fall Risk No fall in past 12 months (0 pts). No secondary diagnosis (0 pts). IV access (20 points). Ambulatory Aid- None/Bed Rest/Nurse Assist (0 pts). Gait- Normal/Bed Rest/Wheelchair (0 pts) Mental Status- Oriented to own ability (0 pts). Total Lopez Fall Scale indicates No Risk (0-24 pts). Assessment: 13:19 General: Appears in no apparent distress. uncomfortable, Behavior is calm, cooperative. vg1 Pain: Denies pain. Neuro: Level of Consciousness is awake, alert, obeys commands, Oriented to person, place, time, situation. Cardiovascular: Capillary refill < 3 seconds in bilateral fingers Edema KENAN lower extremities. Respiratory: Reports shortness of breath Airway is patent Respiratory effort is even, unlabored, Breath sounds are diminished bilaterally. GI: Abdomen is round distended, Pt was d/c from hospital x 1 week ago and was told to stop taking lasix. Reported has gained approximately 30# in one week. : No signs and/or symptoms were reported regarding the genitourinary system. EENT: No signs and/or symptoms were reported regarding the EENT system. Derm: Skin with poor turgor Pt sees wound healing for wounds to KENAN lower extremities; pt bandage wet and pt family states 'legs have been weeping for days'. Musculoskeletal: Circulation, motion, and sensation intact. 13:58 Reassessment: Patient appears in no apparent distress at this time. No changes from vg1 previously documented assessment. Patient and/or family updated on plan of care and expected duration. Pain level reassessed. Patient is alert, oriented x 3, equal unlabored respirations, skin warm/dry/pink. 14:50 Reassessment: Patient appears in no apparent distress at this time. Patient and/or vg1 family updated on plan of care and expected duration. Pain level reassessed. Patient is alert, oriented x 3, equal unlabored respirations, skin warm/dry/pink. Removed pt wound dressing and cleaned with NS. 16:00 Reassessment: Patient appears in no apparent distress at this time. No changes from vg1 previously documented assessment. Patient and/or family updated on plan of care and expected duration. Pain level reassessed. Dr Jay at bedside assessing pt KENAN lower extremities. Misty stated 'wounds dont look infected'. 16:30 Reassessment: [facility] order for 80 mg of Lasix; administered in ED. Order for Pickett vg1 catheter; placed in ED. 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 Vital Signs: 12:41 Pulse 71; Resp 20; Temp 97.6; Pulse Ox 85% ; Weight 117.93 kg; Height 5 ft. 6 in. ll1 (167.64 cm); 13:24 BP 131 / 67; Pulse 66; Resp 17; Pulse Ox 97% on 3 lpm NC; vg1 13:45 BP 122 / 63; Pulse 64; Resp 18; Pulse Ox 98% 3 lpm ; vg1 14:30 BP 136 / 68; Pulse 60; Resp 15; Pulse Ox 99% on 3 lpm NC; vg1 15:30 BP 141 / 79; Pulse 60; Resp 14; Pulse Ox 94% on 3 lpm NC; vg1 19:19 BP 157 / 74; Pulse 62; Resp 12; Pulse Ox 96% ; tt3 12:41 Body Mass Index 41.96 (117.93 kg, 167.64 cm) ll1 ED Course: 12:13 Patient arrived in ED. ds1 12:44 Triage completed. ll1 12:45 Arm band placed on Patient placed in an exam room, on a stretcher. ll1 12:47 Pablo Gupta MD is Attending Physician. ma2 12:57 Ángela Drake, RN is Primary Nurse. vg1 12:59 XRAY Chest (1 view) In Process Unspecified. EDMS 13:06 Patient has correct armband on for positive identification. Bed in low position. Call 5 light in reach. Side rails up X2. desk monitor on. Pulse ox on. NIBP on. 13:06 EKG done, by ED staff, reviewed by Pablo Gupta MD COVID swab sent to lab. 5 13:18 Initial lab(s) drawn, by wi, sent to lab. Inserted saline lock: 20 gauge in left vg1 forearm, using aseptic technique. Blood collected. 13:19 No provider procedures requiring assistance completed. vg1 14:33 Paras Jay DO is Hospitalizing Provider. ma2 16:28 Pickett cath inserted, using sterile technique, 16 Fr., by wi, balloon inflated, to vg1 gravity drainage, returned clear yellow urine. 19:18 Primary Nurse role handed off by Ángela Drake, RN mw2 09/18 07:24 Rosita De La Vega, RN is Primary Nurse. eo2 Administered Medications: 09/17 13:57 Drug: Lasix (furosemide) 20 mg Route: IVP; Site: left forearm; eo2 14:06 Follow up: Response: No adverse reaction eo2 15:00 Follow up: Urine output 800 ml vg1 Output: 15:00 Urine: 800ml (Voided); Total: 800ml. vg1 15:00 Urine: 800ml; Total: 1600ml. vg1 16:20 Urine: 800ml (Pickett); Total: 2400ml. vg1 Outcome: 14:33 Decision to Hospitalize by Provider. ma2 09/18 12:42 Patient left the ED. ll1 Signatures: Dispatcher [employer] [facility] Kaya Castorena Maria 5 Pablo Gupta MD MD ma2 Tri Soriano mw2 Ángela Drake RN RN vg1 Terrence Gallo RN RN ll1 Yfn Sanabria tt3 Rosita De La Vega RN RN eo2 Corrections: (The following items were deleted from the chart) 09/17 12:45 12:44 PMHx: COPD; ll1 ll1 16:02 14:50 Reassessment: Patient appears in no apparent distress at this time. Patient vg1 and/or family updated on plan of care and expected duration. Pain level reassessed. Patient is alert, oriented x 3, equal unlabored respirations, skin warm/dry/pink. Removed pt wound dressing and cleaned with NS. vg1 16:02 16:00 Reassessment: Patient appears in no apparent distress at this time. No changes vg1 from previously documented assessment. Patient and/or family updated on plan of care and expected duration. Pain level reassessed. Dr Jay at bedside assessing pt KENAN lower extremities. vg1 16:34 16:30 Reassessment: [facility] order for 80 mg of Lasix; administered in ED vg1 vg1
--- NOTE | 2021-09-17 14:34 | EDPHYS ---
Physician Documentation [facility] Name: Jimmy Soto Age: 85 yrs Sex: Male : 1935 Arrival Date: 09/17/2021 Time: 12:13 Bed 17 Private MD: ED Physician Pablo Gupta HPI: 09/17 13:39 This 85 yrs old Male presents to ER via Wheelchair with complaints of fluid Overload. ma2 13:39 The patient has shortness of breath at rest. Onset: The symptoms/episode began/occurred ma2 gradually, 1 day(s) ago. Associated signs and symptoms: Pertinent positives: productive cough, Pertinent negatives: diaphoresis, fever, loss of consciousness, nausea. Severity of symptoms: At their worst the symptoms were moderate in the emergency department the symptoms are unchanged. The patient has not experienced similar symptoms in the past. Patient with shortness of breath, volume overload, has history of CHF, saturation was 85 on room air at triage. Patient was discharged from the hospital 2 weeks ago and Lasix was stopped upon discharge.. Historical: - Allergies: 12:44 No Known Allergies; ll1 - PMHx: 12:44 Cellulitis; Diabetes - IDDM; Hyperlipidemia; CHF; Hypertension; leg swelling/sores; ll1 Pneumonia; - PSHx: 12:44 hip SX; ll1 - Immunization history:: Client reports receiving the Korey \\T\\ Korey single-dose vaccine. Flu vaccine is up to date. - Social history:: Smoking status: Patient/guardian denies using tobacco, the patient reports quitting approximately 30 years ago, Patient/guardian denies using alcohol, street drugs, The patient lives with family. - Family history:: not pertinent. ROS: 13:39 Constitutional: Negative for fever, chills, and weight loss. ma2 13:39 All other systems are negative. Exam: 13:39 Constitutional: In respiratory distress, at this time patient is on 4 L oxygen via ma2 nasal cannula saturation is 92 percent Head/Face: Normocephalic, atraumatic. Eyes: Pupils equal round and reactive to light, extra-ocular motions intact. Lids and lashes normal. Conjunctiva and sclera are non-icteric and not injected. Cornea within normal limits. Periorbital areas with no swelling, redness, or edema. ENT: Nares patent. No nasal discharge, no septal abnormalities noted. Tympanic membranes are normal and external auditory canals are clear. Oropharynx with no redness, swelling, or masses, exudates, or evidence of obstruction, uvula midline. Mucous membranes moist. Neck: Trachea midline, no thyromegaly or masses palpated, and no cervical lymphadenopathy. Supple, full range of motion without nuchal rigidity, or vertebral point tenderness. No Meningismus. Chest/axilla: Normal chest wall appearance and motion. Nontender with no deformity. No lesions are appreciated. Cardiovascular: Regular rate and rhythm with a normal S1 and S2. No gallops, murmurs, or rubs. Normal PMI, no JVD. No pulse deficits. Respiratory: Diffuse Rales, crackles bilaterally both lungs, no expiratory wheeze. Patient satting well on 4 L oxygen via nasal cannula Abdomen/GI: Soft, non-tender, with normal bowel sounds. No distension or tympany. No guarding or rebound. No evidence of tenderness throughout. Back: No spinal tenderness. No costovertebral tenderness. Full range of motion. Skin: Warm, dry with normal turgor. Normal color with no rashes, no lesions, and no evidence of cellulitis. MS/ Extremity: Has lower extremity pitting edema, equal both bilaterally. 4+. Otherwise pulses equal, no cyanosis. Neurovascular intact. Full, normal range of motion. Neuro: Awake and alert, GCS 15, oriented to person, place, time, and situation. Cranial nerves II-XII grossly intact. Motor strength 5/5 in all extremities. Sensory grossly intact. Cerebellar exam normal. Normal gait. Vital Signs: 12:41 Pulse 71; Resp 20; Temp 97.6; Pulse Ox 85% ; Weight 117.93 kg; Height 5 ft. 6 in. ll1 (167.64 cm); 13:24 BP 131 / 67; Pulse 66; Resp 17; Pulse Ox 97% on 3 lpm NC; vg1 13:45 BP 122 / 63; Pulse 64; Resp 18; Pulse Ox 98% 3 lpm ; vg1 14:30 BP 136 / 68; Pulse 60; Resp 15; Pulse Ox 99% on 3 lpm NC; vg1 15:30 BP 141 / 79; Pulse 60; Resp 14; Pulse Ox 94% on 3 lpm NC; vg1 19:19 BP 157 / 74; Pulse 62; Resp 12; Pulse Ox 96% ; tt3 12:41 Body Mass Index 41.96 (117.93 kg, 167.64 cm) ll1 MDM: 13:39 Differential diagnosis: Anemia Bronchitis CHF exacerbation, Chronic Obstructive ma2 Pulmonary Disease reactive airway disease. 14:32 Data reviewed: vital signs, nurses notes, EMS record. Counseling: I had a detailed [facility] discussion with the patient and/or guardian regarding: the historical points, exam findings, and any diagnostic results supporting the discharge/admit diagnosis, the presence of at least one elevated blood pressure reading (>120/80) during this emergency department visit, the need for further work-up and treatment in the hospital. 14:33 Patient medically screened. [facility] 09/17 12:48 Order name: Basic Metabolic Panel [facility] 09/17 12:48 Order name: CBC with Diff; Complete Time: 14:28 [facility] 09/17 12:48 Order name: LFT's; Complete Time: 14:28 [facility] 09/17 12:48 Order name: Magnesium; Complete Time: 14:28 [facility] 09/17 12:48 Order name: NT PRO-BNP; Complete Time: 14:28 [facility] 09/17 12:48 Order name: PT-INR; Complete Time: 14:28 [facility] 09/17 12:48 Order name: Troponin (emerg Dept Use Only); Complete Time: 14:28 [facility] 09/17 12:48 Order name: SARS-COV-2 RT PCR (Document "Date of Onset" if Symptomatic) [facility] 09/17 12:48 Order name: Basic Metabolic Panel; Complete Time: 14:28 [facility] 09/17 17:42 Order name: Glucose, Ancillary Testing [facility] 09/17 20:33 Order name: Glucose, Ancillary Testing [facility] 09/17 22:18 Order name: Procalcitonin [facility] 09/18 02:12 Order name: CBC with Automated Diff [facility] 09/18 02:25 Order name: Basic Metabolic Panel [facility] 09/17 12:48 Order name: XRAY Chest (1 view); Complete Time: 14:28 [facility] 09/17 12:48 Order name: EKG; Complete Time: 12:48 [facility] 09/17 12:48 Order name: Cardiac monitoring; Complete Time: 13:06 [facility] 09/17 12:48 Order name: EKG - Nurse/Tech; Complete Time: 13:05 [facility] 09/17 12:48 Order name: IV Saline Lock; Complete Time: 13:18 [facility] 09/17 12:48 Order name: Labs collected and sent; Complete Time: 13:18 [facility] 09/17 12:48 Order name: O2 Per Protocol; Complete Time: 12:50 [facility] 09/17 12:48 Order name: O2 Sat Monitoring; Complete Time: 12:50 [facility] 09/18 02:25 Order name: Magnesium [facility] 09/18 06:54 Order name: Blood Culture [facility] 09/18 08:19 Order name: RAD [facility] 09/18 08:25 Order name: Glucose, Ancillary Testing EDMS Administered Medications: 13:57 Drug: Lasix (furosemide) 20 mg Route: IVP; Site: left forearm; eo2 14:06 Follow up: Response: No adverse reaction eo2 15:00 Follow up: Urine output 800 ml vg1 Disposition Summary: 09/17/21 14:33 Hospitalization Ordered Hospitalization Status: Inpatient Admission la2 Provider: aPras Jay ma2 Condition: Stable ma2 Problem: new ma2 Symptoms: are unchanged [facility] Bed/Room Type: Standard [facility] Location: Telemetry/MedSurg (Inpatient)(09/18/21 09:49) [facility] Room Assignment: [facility](09/18/21 09:51) [facility] Diagnosis - Hypoxemia ma2 - Acute systolic (congestive) heart failure [facility] Forms: - Medication Reconciliation Form ma2 - SBAR form la2 Signatures: Dispatcher [employer] [facility] Jovanni Treviño RN RN ja1 Pablo Gupta MD MD ma2 Terrence Gallo RN RN ll1 Rosita De La Vega RN RN effie2 Ángela Drake RN vg1 Corrections: (The following items were deleted from the chart) 12:45 12:44 PMHx: COPD; ll1 ll1 17:54 14:33 Telemetry/MedSurg (Inpatient) la2 17:54 14:33 ma2 [facility] 09/18 09:49 09/17 17:54 [facility] ER HOLD 1 [facility] 09/18 09:49 09/17 17:54 ERHOLD- [place] [id number] 09/18 09:51 09:49 208 ja1 ja1
--- NOTE | 2021-09-17 15:23 | P.HP ---
Certification for Inpatient Patient admitted to: Inpatient With expected LOS: >2 Midnights Patient will require the following post-hospital care: Other (Home with home health and chronic oxygen) Practitioner: I am a practitioner with admitting privileges, knowledge of pat ient current condition, hospital course, and medical plan of care. Services: Services provided to patient in accordance with Admission requirements found in Title 42 Section 412.3 of the Code of Federal Regulations Patient History Date of Service: 09/17/21 Primary Care Provider: Dr. Mckenzie; Nephrology-Dr. Kincaid Reason for admission: Dyspnea, edema History of Present Illness: 85-year-old male with history of chronic renal disease stage IV, di astolic CHF, atrial fibrillation not on chronic anticoagulation therapy, diabetes, hypothyroidism, morbid obesity and BPH. Patient recently hospitalized for acute on chronic renal disease and heart f ailure. Diuretics were adjusted during the course of his recent stay. Patient had been taking Lasix 100 mg 3 times a day along with metolazone. At discharge his diuretics were held. He was post to follow-up with his fagot heater helper to consider restarting medication. Since that time patient has worsened with increasing shortness of breath and edema to the lower extremities. Patient also was treated for UTI. He came to the ER for further evaluation. In the ER patient was evaluated. Patient requiring 3 L per nasal cannula. Edema to the lower extremities noted. On lab white count 8.0, hemoglobin 11. Platelet count 164. Sodium 136, potassium 3.7. BUN of 47, creatinine 2.24 with a GFR of 28. Glucose 60. Covid test negative. BNP 2500. Troponin negative. Chest x-ray shows pulmonary edema. Patient given Lasix in the emergency room. Compression wrappings to be replaced. Patient admitted for further evaluation and treatment. Allergies No Known Allergies Allergy (Verified 01/19/18 04:44) Home medications list reviewed: Yes Home Medications: Allopurinol 100 mg PO DAILY 09/01/20 Pantoprazole [Protonix Tab*] 40 mg PO DAILY 09/01/20 Tamsulosin [Flomax*] 1 tab PO BID 09/01/20 Amiodarone HCl [Cordarone*] 200 mg PO DAILY #30 tab 09/06/20 Melatonin 10 mg PO BEDTIME PRN PRN #30 tablet 09/06/20 Atorvastatin Calcium 40 mg PO BEDTIME 09/06/21 Insulin Glargine Human [Lantus*] 60 units SQ BEDTIME 09/06/21 Levothyroxine Sodium [Levothyroxine] 50 mcg PO DAILY 09/06/21 hydrOXYzine HCL [Atarax*] 25 mg PO TID 09/06/21 levoFLOXacin [Levaquin] 250 mg PO Q48H #2 tab 09/08/21 - Past Medical/Surgical History Diabetic: Yes -: HTN -: Hyperlipidemia -: Diabetes mellitus type 2 insulin-dependent -: History of asbestosis -: History MRSA foot w/ cellulitis -: Obstructive sleep apnea -: Chronic atrial fibrillation not on chronic anti coagulation -: Diastolic CHF -: Chronic lymphedema -: Hypothyroidism -: Chronic renal disease stage III -: Bilateral wrist sx (fell off deer stand and broke both wrist) -: cataract sx -: Right hip sx r/t fx Psychosocial/ Personal History: Patient lives at home by himself but has caregiver coming throughout the week. - Family History Family History: Reviewed- Non-Contributory - Family History Mother Notes: denies having family history of illness Father Notes: denies having family history of illness Sister Notes: denies having family history of illness Brother Notes: denies having family history of illness - Social History Smoking Status: Never smoker Alcohol use: No CD- Drugs: No Caffeine use: Yes Place of Residence: Home Review of Systems General: Weakness, As per HPI Eyes: Unremarkable ENT: Unremarkable Respiratory: Shortness of Breath, SOB with Excertion, As per HPI Cardiovascular: Edema, As per HPI Gastrointestinal: Unremarkable Genitourinary: Unremarkable Musculoskeletal: Pedal edema, As per HPI Integumentary: As per HPI Neurological: Unremarkable Lymphatics: Unremarkable Physical Examination - Studies Laboratory Data (last 24 hrs) 09/17/21 13:13: PT 13.2 H, INR 1.15 09/17/21 13:13: WBC 8.00, Hgb 11.1 L, Hct 35.0 L, Plt Count 164 09/17/21 13:13: Sodium 136, Potassium 3.7, BUN 47 H, Creatinine 2.26 H, Glucose 60 L, Magnesium 3.2 H D, Total Bilirubin 0.5, AST 13 L, ALT 20, Alkaline Phosphatase 106 Assessment and Plan - Plan COVID: negative CXR: COMPARISON: Chest Single View dated 09/07/2021; Chest Single View dated 09/03/2020; Chest Single View dated 09/01/2020; Chest Single View dated 12/05/2019 FINDINGS: Portable technique limits examination quality. Moderate bilateral pulmonary opacities are present likely representing pulmonary edema or pneumonia. The heart is moderately enlarged in size. Tortuous thoracic aorta is seen. Renal US 08/2021: COMPARISON: 2018 FINDINGS: The right kidney measures 10 cm with an increased echotexture. The left kidney measures 9 cm with an increased echotexture. Hydronephrosis is not seen. Pickett catheter is present within a collapsed bladder IMPRESSION: Mildly increased renal echotexture consistent with parenchymal disease Physical Exam: GENERAL: The patient is a well-developed, well-nourished, in no apparent distress. Alert and oriented x3. VITAL SIGNS: Reviewed HEENT: Head is normocephalic and atraumatic. Extraocular muscles are intact. Pupils are equal, round, and reactive to light and accommodation. Nares appeared normal. Mouth is well hydrated and without lesions. Mucous membranes are moist. NECK: Supple. No carotid bruits. No lymphadenopathy or thyromegaly. LUNGS: Decreased at the bases bilateral. Currently on oxygen3 L per nasal cannula HEART: Regular rate and rhythm. ABDOMEN: Soft, nontender, and nondistended. Positive bowel sounds. No hepatosplenomegaly was noted. EXTREMITIES: Mild erythema with edema to the lower extremities NEUROLOGIC: The patient is oriented to person, place and time. Strength and sensation are grossly intact. Face is symmetric. SKIN: Compression wraps to the lower extremity. Edema noted to the lower extremity. Mild erythema noted to the skin Impression: Dyspnea secondary to acute on chronic diastolic CHF Chronic renal failure stage IV Chronic atrial fibrillation not on chronic anticoagulation therapy Diabetes mellitus type 2 insulin-dependent Chronic lymphedema to the lower extremities BPH Hyperlipidemia Hypothyroidism Insomnia Obesity Plan: Dyspnea secondary to acute on chronic diastolic CHF: Patient admitted for further evaluation and treatment. Patient recently admitted for acute on chronic renal failure and CHF. At discharge it appears patient was told to hold his Lasix and metolazone. He was to follow-up with nephrology to consider restarting medication. Now with shortness of breath and pulmonary edema on chest x-ray. Spoke with nephrology. Restart Lasix at 80 mg twice daily IV. Hold off on metolazone for now. Will place Pickett catheter for strict input output and daily weight. Will monitor closely. Recheck chest x-ray. Wean off oxygen. Patient uses home oxygen at home. Wound care consulted to evaluate and continue with compression wrappings. Will check procalcitonin to evaluate for infection. Patient recently had and treated for UTI. Will check urine and blood cultures to confirm resolution. I will turn the service over to the hospitalist team tomorrow. I will go plan of care with him. Chronic renal failure stage IV: Nephrology consulted. Continue with above plan of care. Will monitor renal function closely. Chronic atrial fibrillation not on chronic anticoagulation therapy: Continue heparin for DVT prophylaxis. Patient not on chronic anticoagulation therapy. Continue amiodarone 200 mg daily. Diabetes mellitus type 2 insulin-dependent: Blood sugar was slightly low. Will monitor for hypoglycemia. Continue Accu-Cheks and sliding scale. Will confirm dose of his Lantus at home. Chronic lymphedema to the lower extremities: Consult wound care to further evaluate. Continue compression wrappings every other day. Will evaluate for possible cellulitis but likely more edema related to his overload. BPH: Continue Flomax 0.4 mg daily. Hyperlipidemia: Continue Lipitor 40 mg daily. Hypothyroidism: Continue levothyroxine 50 mcg daily. Insomnia: Continue with melatonin 10 mg daily as needed. Obesity: Address lifestyle modification education. Will obtain BMI. Code Status: This was addressed in detail. Patient is DO NOT RESUSCITATE. DVT prophylaxis: Heparin Advanced Care Planning-30 minutes: Home at discharge with home health and physical therapy and chronic oxygen. Discharge Plan: Home Plan to discharge in: Greater than 2 days - Advance Directives Does patient have a Living Will: No Does patient have a Durable POA for Healthcare: Yes - Code Status/Comfort Care Code Status Assessed: Yes (Patient is DNR) Time Spent Managing Pts Care (In Minutes): 55
[2021-09-17] MEDS ORDERED: FUROSEMIDE 100 MG/10 ML VIAL IV ONE (16:09)
[2021-09-17] MEDS: FUROSEMIDE 40 MG/4 ML VIAL IV SCH ×2 (16:11→16:18)
[2021-09-17] MEDS ORDERED: ONDANSETRON 4 MG/2 ML VIAL IV PRN (17:19)
[2021-09-17] MEDS: INSULIN -REGULAR HUMAN 50 UNIT/0.5 ML ML SQ SCH ×2 (17:19→20:34)
[2021-09-17] MEDS ORDERED: hydrOXYzine HCL 25 MG TAB PO PRN (17:19)
[2021-09-17] MEDS ORDERED: ACETAMINOPHEN 500 MG TAB PO PRN (17:19)
[2021-09-17] MEDS ORDERED: MELATONIN 5 MG TABLET PO PRN (17:19)
[2021-09-17] MEDS ORDERED: HEPARIN 5000 UNIT/ML 1 ML VIAL ONE (20:23)
[2021-09-17] MEDS: HEPARIN 5000 UNIT/ML 1 ML VIAL SQ SCH (20:33)
[2021-09-17] MEDS ORDERED: TAMSULOSIN 0.4 MG SR CAP PO SCH ×2 (21:00)
[2021-09-17] MEDS: ATORVASTATIN 40 MG TAB PO SCH (21:00)
[2021-09-18 02:11] LABS: Absolute Lymphocytes (CBC) 0.7 K/uL (0.7-4.9); Hematocrit 35.7 % (39.6-49.0); Lymphocytes % 9.5 % (15.3-44.8); MPV 7.3 fL (7.6-11.3); RBC Red Blood Cell Count 4.04 M/uL (4.33-5.43)
[2021-09-18 02:25] LABS: Potassium 3.4 mmol/L (3.5-5.1)
[2021-09-18] MEDS ORDERED: PANTOPRAZOLE 40MG TABLET PO SCH ×2 (06:30)
[2021-09-18] MEDS: INSULIN -REGULAR HUMAN 50 UNIT/0.5 ML ML SQ SCH ×4 (07:30→21:42)
--- NOTE | 2021-09-18 07:55 | P.CNS ---
Date of Consult: 09/18/21 Reason for Consult: Renal failure Requesting Physician: Paras Jay Primary Care Provider: Dr. Mckenzie; Nephrology-Dr. Kincaid Chief Complaint: Dyspnea, edema History of Present Illness: 85M w/ PMHx of CKD 3b-4, baseline SCr 1.8-2.2 (equiv GFR 29-36 ml/min) as of 06/06/21, recent OTIS 2/2 prerenal state/diuretic use, recent UTI, BPH, Htn, DM2, CHF, & LE cellulitis, who p/w volume overload w/ SOB & BLE edema, admitted for further eval & mngt. Allergies No Known Allergies Allergy (Verified 01/19/18 04:44) Home Medications: Allopurinol 100 mg PO DAILY 09/01/20 Pantoprazole [Protonix Tab*] 40 mg PO DAILY 09/01/20 Tamsulosin [Flomax*] 1 tab PO BID 09/01/20 Amiodarone HCl [Cordarone*] 200 mg PO DAILY #30 tab 09/06/20 Melatonin 10 mg PO BEDTIME PRN PRN #30 tablet 09/06/20 Atorvastatin Calcium 40 mg PO BEDTIME 09/06/21 Insulin Glargine Human [Lantus*] 60 units SQ BEDTIME 09/06/21 Levothyroxine Sodium [Levothyroxine] 50 mcg PO DAILY 09/06/21 hydrOXYzine HCL [Atarax*] 25 mg PO TID 09/06/21 Furosemide [Lasix*] 80 mg PO BID 09/18/21 Insulin Aspart [Novolog Flexpen] 15 unit SQ TIDWM 09/18/21 metOLazone [Metolazone] 5 mg PO DAILY 09/18/21 - Past Medical/Surgical History Diabetic: Yes -: HTN -: Hyperlipidemia -: Diabetes mellitus type 2 insulin-dependent -: History of asbestosis -: History MRSA foot w/ cellulitis -: Obstructive sleep apnea -: Chronic atrial fibrillation not on chronic anti coagulation -: Diastolic CHF -: Chronic lymphedema -: Hypothyroidism -: Chronic renal disease stage III -: Bilateral wrist sx (fell off [place] stand and broke both wrist) -: cataract sx -: Right hip sx r/t fx Psychosocial/ Personal History: Patient lives at home by himself but has caregiver coming throughout the week. - Family History Mother Notes: denies having family history of illness Father Notes: denies having family history of illness Sister Notes: denies having family history of illness Brother Notes: denies having family history of illness - Social History Smoking Status: Unknown if ever smoked Alcohol use: No CD- Drugs: No Caffeine use: Yes Place of Residence: Home Review of Systems General: Weakness Eyes: Unremarkable ENT: Unremarkable Respiratory: Shortness of Breath, SOB with Excertion Cardiovascular: Edema (BLE edema) Gastrointestinal: Unremarkable Genitourinary: Unremarkable Musculoskeletal: Unremarkable Integumentary: Unremarkable Neurological: Unremarkable Lymphatics: Unremarkable Physical Examination Temp Pulse Resp BP Pulse Ox 97.9 F 59 11 L 113/63 100 09/18/21 04:00 09/18/21 04:00 09/18/21 04:00 09/18/21 04:00 09/18/21 04:00 General: Other (appears chronically ill) HEENT: Atraumatic, Normocephalic Neck: Supple, JVD not distended Respiratory: Other (symmetric chest expansion) Cardiovascular: No rubs, No murmurs Gastrointestinal: Soft and benign, No guarding Musculoskeletal: Swelling (+BLE edema) Integumentary: No warmth Neurological: Normal speech, Normal tone Lymphatics: No axilla or inguinal lymphadenopathy Urinary: Other (no bladder distention) External genitalia: Deferred Rectal: Deferred Laboratory Data (last 24 hrs) 09/17/21 13:13: PT 13.2 H, INR 1.15 09/17/21 13:13: WBC 8.00, Hgb 11.1 L, Hct 35.0 L, Plt Count 164 09/17/21 13:13: Sodium 136, Potassium 3.7, BUN 47 H, Creatinine 2.26 H, Glucose 60 L, Magnesium 3.2 H D, Total Bilirubin 0.5, AST 13 L, ALT 20, Alkaline Phosphatase 106 Conclusions/Impression: 1. 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 SCr 2.1 today, at baseline. [place] po fluid intake. UCx neg. Monitor renal panel. 2. CHF. TTE on 09/2019 showed biventricular dilation + normal sized ventricles, ? Restrictive cardiomyopathy. TTE also w/ pulmo Htn w/ RVSP 50 mmHg. No hyperCa, sarcoidosis unlikely. +Serum protein gap, r/o amyloid dse, f/u spep, upep, serum SHARLA, K:L SFLC. No iron overload on iron panel, hemochromatosis unlikely. No hx of cancer. CT chest from 2013 showed pleural plaques, ?asbestos exposure, but no clear e/o pulmo Htn. If he indeed has RCM, this may be from pulmo fibrosis. Continue home O2. Lasix + metolazone was on hold since last hosp dc. Lasix now resumed via IV dosing. 3. Recent UTI s/p abx. F/u urinalysis. 4. BPH. Cont flomax 5. Htn. Cont currrent med regimen. 6. Chronic afib. On amiodarone. Not on AC therapy. 7. Chronic BLE edema c/b BLE Cellulitis. Local wound care. Received abx. 8. DM2. Mngt per primary team 9. Hypokalemia. KCl repletion today.
--- NOTE | 2021-09-18 08:19 | RAD REPORT ---
EXAM DESCRIPTION: RAD - Chest Single View - 09/18/2021 5:55 am CLINICAL HISTORY: follow up CHF, shortness of breath COMPARISON: September 17 TECHNIQUE: AP portable chest image was obtained 09/18/2021 5:55 am . FINDINGS: Prominent interstitial opacification is present throughout both lung lomas with minimal s cattered alveolar opacities present as well. Pattern is not clearly different from the comparison jennifer dy. Heart size has diminished slightly from prior imaging. Central vasculature is prominent but impro anthony. No measurable pleural effusion and no pneumothorax. No acute bony abnormality seen. No acute aortic findings suspected. IMPRESSION: Heart size has decreased slightly from September 17 imaging. Central vasculature also dim inished slightly. Interstitial and alveolar opacities throughout the lung lomas unchanged from September 17.
[2021-09-18] MEDS: allopurinoL 100 MG TAB PO SCH (09:00)
[2021-09-18] MEDS ORDERED: POTASSIUM CL SA 10 MEQ TAB PO ONE ×2 (09:00→09:37)
[2021-09-18] MEDS: FUROSEMIDE 40 MG/4 ML VIAL IV SCH ×2 (09:00→21:42)
[2021-09-18] MEDS: AMIODARONE HCL 200 MG TAB PO SCH (09:00)
[2021-09-18] MEDS: HEPARIN 5000 UNIT/ML 1 ML VIAL SQ SCH ×2 (09:00→21:42)
[2021-09-18] MEDS ORDERED: HEPARIN 5000 UNIT/ML 1 ML VIAL ONE (09:36)
[2021-09-18] MEDS ORDERED: AMIODARONE HCL 200 MG TAB ONE (09:37)
[2021-09-18] MEDS ORDERED: FUROSEMIDE 40 MG/4 ML VIAL ONE (09:37)
[2021-09-18] MEDS: LEVOTHYROXINE SOD 0.05 MG TABLET PO SCH (09:39)
--- NOTE | 2021-09-18 14:16 | ECHO ---
HEIGHT: 5 ft 6 in WEIGHT: 259 lb 15.858 oz DATE OF STUDY: 09/18/[address]: Paras Jay DO 2-DIMENSIONAL: YES M.MODE: YES DOPPLER: YES COLOR FLOW: YES TDS: PORTABLE: DEFINITY: BUBBLE STUDY: DIAGNOSIS: ACUTE ON CHRONIC CONGESTIVE HEART FAILURE CARDIAC HISTORY: CATHERIZATION: SURGERY: PROSTHETIC VALVE: PACEMAKER: MEASUREMENTS (cm) DIASTOLIC (NORMALS) SYSTOLIC (NORMALS) IVSd 1.0 (0.6-1.2) LA Diam 3.8 (1.9-4.0) LVEF 68% LVIDd 4.4 (3.5-5.7) LVIDs 2.7 (2.0-3.5) %FS 38% LVPWd 1.2 (0.6-1.2) Ao Diam 2.6 (2.0-3.7) 2 DIMENSIONAL ASSESSMENT: RIGHT ATRIUM: NORMAL LEFT ATRIUM: NORMAL RIGHT VENTRICLE: NORMAL LEFT VENTRICLE: NORMAL TRICUSPID VALVE: MILD TRICUSPID REGURGITATION MITRAL VALVE: NORMAL PULMONIC VALVE: NORMAL AORTIC VALVE: NORMAL PERICARDIAL EFFUSION: NORMAL AORTIC ROOT: NORMAL LEFT VENTRICULAR WALL MOTION: NORMAL DOPPLER/COLOR FLOW: MILD TRICUSPID REGURGITATION COMMENTS: NORMAL LEFT VENTRICULAR EJECTION FRACTION 60-65%. NORMAL WALL MOTION. SEVERE DIASTOLIC DYSFUNCTION. RIGHT VENTRICULAR SYSTOLIC PRESSURE OF 50-55 mmHg. TECHNOLOGIST: LETICIA TELLO
[2021-09-18 15:39] LABS: Urine Appearance CLOUDY (Clear); Urine Bilirubin NEGATIVE (Negative); Urine Blood 3+ (Negative); Urine Color YELLOW (Yellow); Urine Glucose NEGATIVE (Negative); Urine Protein NEGATIVE (Negative); Urine Urobilinogen 0.2 mg/dL (0.2-1.0)
[2021-09-18 15:47] LABS: Urine Microscopic Reflex ORDER UMIC
[2021-09-18 15:54] LABS: Urine Bacteria 20-50 /HPF (NONE SEEN); Urine RBC 20-50 /HPF (NONE SEEN)
[2021-09-18] MEDS: ATORVASTATIN 40 MG TAB PO SCH (21:42)
[2021-09-19 05:40] LABS: Absolute Lymphocytes (CBC) 0.8 K/uL (0.7-4.9); Hematocrit 33.6 % (39.6-49.0); Lymphocytes % 10.4 % (15.3-44.8); MPV 7.4 fL (7.6-11.3); RBC Red Blood Cell Count 3.83 M/uL (4.33-5.43)
[2021-09-19 05:57] LABS: Magnesium 2.7 mg/dL (1.8-2.4)
[2021-09-19] MEDS: LEVOTHYROXINE SOD 0.05 MG TABLET PO SCH (06:46)
--- NOTE | 2021-09-19 06:49 | P.PN ---
Subjective Date of Service: 09/19/21 Primary Care Provider: Dr. Mckenzie; Nephrology-Dr. Kincaid Chief Complaint: Dyspnea, edema Subjective: No new changes Physical Examination - Vital Signs Temperature: 96.9 F Blood Pressure: 121/57 Pulse: 81 Respirations: 18 Pulse Ox (%): 94 - Physical Exam General: Other (appears chronically ill) HEENT: Atraumatic, Normocephalic Neck: Supple Respiratory: Other (symmetric chest expansion) Cardiovascular: No rubs, No murmurs Gastrointestinal: Soft and benign Musculoskeletal: No clubbing Integumentary: No warmth Neurological: Normal speech, Normal tone Urinary: Other (no bladder distention) External genitalia: Deferred Rectal: Deferred Assessment And Plan - Plan 1. 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 SCr 2.2 today, at baseline. [place] po fluid intake. UCx neg. Monitor renal panel. 2. CHF. TTE on 09/2019 showed biventricular dilation + normal sized ventricles, ? Restrictive cardiomyopathy. TTE also w/ pulmo Htn w/ RVSP 50 mmHg. No hyperCa, sarcoidosis unlikely. +Serum protein gap, r/o amyloid dse, f/u spep, upep, serum SHARLA, K:L SFLC. No iron overload on iron panel, hemochromatosis unlikely. No hx of cancer. CT chest from 2013 showed pleural plaques, ?asbestos exposure, but no clear e/o pulmo Htn. If he indeed has RCM, this may be from pulmo fibrosis. Continue home O2. Lasix + metolazone was on hold since last hosp dc. Lasix now resumed via IV dosing. 3. Recent UTI s/p abx. F/u urinalysis. 4. BPH. Cont flomax 5. Htn. Cont currrent med regimen. 6. Chronic afib. On amiodarone. Not on AC therapy. 7. Chronic BLE edema c/b BLE Cellulitis. Local wound care. Received abx. 8. DM2. Mngt per primary team 9. Hypokalemia. Resolved. KCl repletion prn. 10.Metabolic Alkalosis. Diamox x 4 doses.
[2021-09-19] MEDS: INSULIN -REGULAR HUMAN 50 UNIT/0.5 ML ML SQ SCH ×4 (07:30→21:00)
[2021-09-19] MEDS: HEPARIN 5000 UNIT/ML 1 ML VIAL SQ SCH ×2 (09:49→21:47)
[2021-09-19] MEDS: allopurinoL 100 MG TAB PO SCH (09:49)
[2021-09-19] MEDS: FUROSEMIDE 40 MG/4 ML VIAL IV SCH ×2 (09:49→21:47)
[2021-09-19] MEDS: AMIODARONE HCL 200 MG TAB PO SCH (09:49)
[2021-09-19 17:09] LABS: Arterial Blood Carboxyhemoglob 2.6 % (0-1.5); Blood Gas Oxyhemoglobin 73.3 % (94-97); Blood O2 Saturation 76.3 % (92-98.5)
[2021-09-19] MEDS: ATORVASTATIN 40 MG TAB PO SCH (21:47)
[2021-09-20 04:32] LABS: Absolute Lymphocytes (CBC) 0.8 K/uL (0.7-4.9); Hematocrit 34.6 % (39.6-49.0); Lymphocytes % 10.2 % (15.3-44.8); MPV 7.1 fL (7.6-11.3); RBC Red Blood Cell Count 3.98 M/uL (4.33-5.43)
[2021-09-20 04:45] LABS: Magnesium 2.6 mg/dL (1.8-2.4); Potassium 4.1 mmol/L (3.5-5.1)
[2021-09-20] MEDS: LEVOTHYROXINE SOD 0.05 MG TABLET PO SCH (05:09)
[2021-09-20 05:14] VITALS: BMI 41.9
[2021-09-20] MEDS: INSULIN -REGULAR HUMAN 50 UNIT/0.5 ML ML SQ SCH ×4 (07:30→20:29)
[2021-09-20] MEDS: HEPARIN 5000 UNIT/ML 1 ML VIAL SQ SCH ×2 (09:48→20:30)
[2021-09-20] MEDS: allopurinoL 100 MG TAB PO SCH (09:48)
[2021-09-20] MEDS: FUROSEMIDE 40 MG/4 ML VIAL IV SCH (09:48)
[2021-09-20] MEDS: AMIODARONE HCL 200 MG TAB PO SCH (09:48)
[2021-09-20] MEDS: ACETAZOLAMIDE 500 MG IV IV SCH ×2 (12:25→22:12)
--- NOTE | 2021-09-20 13:36 | P.PN ---
Subjective Date of Service: 09/20/21 Primary Care Provider: Dr. Mckenzie; Nephrology-Dr. Kincaid Chief Complaint: Dyspnea, edema Subjective: No new changes Physical Examination - Vital Signs Temperature: 97.0 F Blood Pressure: 157/70 Pulse: 75 Respirations: 16 Pulse Ox (%): 94 - Physical Exam General: Other (appears as his stated age) HEENT: Atraumatic, Normocephalic Neck: Supple Respiratory: Other (symmetric chest expansion) Cardiovascular: No rubs, No murmurs Gastrointestinal: Soft and benign, No guarding Musculoskeletal: No clubbing Integumentary: No rashes Neurological: Normal speech, Normal tone Lymphatics: No axilla or inguinal lymphadenopathy Urinary: Other (no bladder distention) External genitalia: Deferred Rectal: Deferred Assessment And Plan - Plan 1. 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 SCr 2.2, at baseline. [place] po fluid intake. UCx neg. Monitor renal panel. 2. CHF. TTE on 09/2019 showed biventricular dilation + normal sized ventricles, ? Restrictive cardiomyopathy. TTE also w/ pulmo Htn w/ RVSP 50 mmHg. No hyperCa, sarcoidosis unlikely. +Serum protein gap, r/o amyloid dse, f/u spep, upep, serum SHARLA, K:L SFLC. No iron overload on iron panel, hemochromatosis unlikely. No hx of cancer. CT chest from 2013 showed pleural plaques, ?asbestos exposure, but no clear e/o pulmo Htn. If he indeed has RCM, this may be from pulmo fibrosis. Continue home O2. Lasix 80 mg po bid + metolazone 5 mg po daily. 3. Recent UTI s/p abx. F/u urinalysis. 4. BPH. Cont flomax 5. Htn. Cont currrent med regimen. 6. Chronic afib. On amiodarone. Not on AC therapy. 7. Chronic BLE edema c/b BLE Cellulitis. Local wound care. Received abx. 8. DM2. Mngt per primary team 9. Hypokalemia. Resolved. KCl repletion prn. 10.Metabolic Alkalosis. Diamox x 4 doses. 11.Dispo. Anticipate dc in 1-2d.
[2021-09-20] MEDS: METOLAZONE 5 MG TABLET PO SCH (16:15)
[2021-09-20] MEDS: FUROSEMIDE 40 MG TABLET PO SCH (16:15)
--- NOTE | 2021-09-20 18:58 | P.PN ---
Subjective Date of Service: 09/18/21 Patient continues to improve. Patient is diuresing affectively. Patient has been taking Lasix 100 mg 3 times a day orally at home. This was recently reduced and this put patient in no heart failure. Patient was admitted and we started him on IV Lasix any sternum feel better. Mentation is improving. Will Dc Pickett catheter in get physical therapy evaluation. Review of Systems 10-point ROS is otherwise unremarkable Physical Examination - Vital Signs Temperature: 96.9 F Blood Pressure: 124/51 Pulse: 90 Respirations: 16 Pulse Ox (%): 95 - Physical Exam General: Alert, In no apparent distress, Oriented x3 HEENT: Atraumatic, PERRLA, EOMI Neck: Supple, JVD not distended Respiratory: Diminished, Crackles/rales Cardiovascular: Regular rate/rhythm, Normal S1 S2, No murmurs Gastrointestinal: Normal bowel sounds, Soft and benign, Non-distended, No tenderness Musculoskeletal: No clubbing, No tenderness, Swelling Integumentary: No rashes Neurological: Sensation intact, Cranial nerves 3-12 intact, Abnormal strength Lymphatics: No axilla or inguinal lymphadenopathy - Studies Medications List Reviewed: Yes Assessment & Plan - Problems (Diagnosis) (1) 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 Current Visit: No Status: Acute (2) Atrial fibrillation with rapid ventricular response Onset Date: 01/20/18 Current Visit: No Status: Acute (3) Chronic diastolic heart failure Current Visit: No Status: Acute (4) Hyperlipidemia Current Visit: No Status: Acute (5) Hypertension Current Visit: No Status: Acute (6) Hypothyroidism Current Visit: No Status: Acute (7) Obstructive sleep apnea Current Visit: No Status: Acute (8) Pulmonary embolism Current Visit: No Status: Acute (9) Respiratory failure Current Visit: No Status: Resolved Qualifiers: Respiratory failure complication: unspecified whether with hypoxia or hypercapnia - Plan 1. Echocardiogram has been reviewed 2. Continue with cardiac meds 3. Continue beta-choco therapy 4. Nephrology consultation appreciated 5. Aggressive diuresis 6. Strict I's and O's 7. Repeat CXR 8. Daily weights 9. Education regarding diet and treatment of congestive heart failure Discharge Plan: Home Plan to discharge in: Greater than 2 days - Advance Directives Does patient have a Living Will: No Does patient have a Durable POA for Healthcare: No - Code Status/Comfort Care Code Status Assessed: Yes Code Status: Full Code Critical Care: No Time Spent Managing PTS Care (In Minutes): 45
--- NOTE | 2021-09-20 18:59 | P.PN ---
Date of Service: 09/20/21 Subjective Patient continues to improve. Patient's cardiac status is stable. Renal function is stable. Anticipate discharge home in the morning. Review of Systems 10-point ROS is otherwise unremarkable Physical Examination - Vital Signs Reviewed - Physical Exam General: Alert, In no apparent distress, Oriented x3 Respiratory: Diminished, Crackles/rales Cardiovascular: Regular rate/rhythm, Normal S1 S2, No murmurs Gastrointestinal: Normal bowel sounds, Soft and benign, Non-distended, No tenderness Musculoskeletal: No clubbing, No tenderness, Swelling Neurological: Sensation intact, Cranial nerves 3-12 intact, Abnormal strength Assessment & Plan - Problems (Diagnosis) (1) 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 Current Visit: No Status: Acute (2) Atrial fibrillation with rapid ventricular response Onset Date: 01/20/18 Current Visit: No Status: Acute (3) Chronic diastolic heart failure Current Visit: No Status: Acute (4) Hyperlipidemia Current Visit: No Status: Acute (5) Hypertension Current Visit: No Status: Acute (6) Hypothyroidism Current Visit: No Status: Acute (7) Obstructive sleep apnea Current Visit: No Status: Acute (8) Pulmonary embolism Current Visit: No Status: Acute (9) Respiratory failure Current Visit: No Status: Resolved Qualifiers: Respiratory failure complication: unspecified whether with hypoxia or hypercapnia - Plan Continue with plan of care as mentioned below: 1. Echocardiogram has been reviewed; patient with diastolic heart failure 2. Continue with cardiac meds 3. Continue beta-choco therapy 4. Nephrology consultation and Cardiology consultation appreciated 5. Continue with diuresing 6. Strict I's and O's 7. Repeat CXR 8. Daily weights 9. Education regarding diet and treatment of congestive heart failure
--- NOTE | 2021-09-20 18:59 | P.PN ---
Date of Service: 09/19/21 Subjective Patient improving. Dc Pickett catheter. Physical therapy is work with patient. Patient is doing well and anticipate discharge home soon Review of Systems 10-point ROS is otherwise unremarkable Physical Examination - Vital Signs Reviewed - Physical Exam General: Alert, In no apparent distress, Oriented x3 Respiratory: Diminished, Crackles/rales Cardiovascular: Regular rate/rhythm, Normal S1 S2, No murmurs Gastrointestinal: Normal bowel sounds, Soft and benign, Non-distended, No tenderness Musculoskeletal: No clubbing, No tenderness, Swelling Neurological: Sensation intact, Cranial nerves 3-12 intact, Abnormal strength Assessment & Plan - Problems (Diagnosis) (1) 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 Current Visit: No Status: Acute (2) Atrial fibrillation with rapid ventricular response Onset Date: 01/20/18 Current Visit: No Status: Acute (3) Chronic diastolic heart failure Current Visit: No Status: Acute (4) Hyperlipidemia Current Visit: No Status: Acute (5) Hypertension Current Visit: No Status: Acute (6) Hypothyroidism Current Visit: No Status: Acute (7) Obstructive sleep apnea Current Visit: No Status: Acute (8) Pulmonary embolism Current Visit: No Status: Acute (9) Respiratory failure Current Visit: No Status: Resolved Qualifiers: Respiratory failure complication: unspecified whether with hypoxia or hypercapnia - Plan Continue with plan of care as mentioned below: 1. Echocardiogram has been reviewed 2. Continue with cardiac meds 3. Continue beta-choco therapy 4. Nephrology consultation appreciated 5. Aggressive diuresis 6. Strict I's and O's 7. Repeat CXR 8. Daily weights 9. Education regarding diet and treatment of congestive heart failure
[2021-09-20] MEDS: JUVEN PACKET PO SCH (20:30)
[2021-09-20] MEDS: ATORVASTATIN 40 MG TAB PO SCH (20:30)
[2021-09-20] MEDS ORDERED: WATER FOR INJ,STERILE 10 ML ONE (22:10)
[2021-09-21 06:04] LABS: Absolute Lymphocytes (CBC) 0.9 K/uL (0.7-4.9); Hematocrit 35.2 % (39.6-49.0); Lymphocytes % 11.7 % (15.3-44.8); MPV 6.9 fL (7.6-11.3); RBC Red Blood Cell Count 3.99 M/uL (4.33-5.43)
[2021-09-21] MEDS: LEVOTHYROXINE SOD 0.05 MG TABLET PO SCH (06:10)
[2021-09-21 06:16] LABS: Magnesium 2.3 mg/dL (1.8-2.4); Potassium 3.7 mmol/L (3.5-5.1)
[2021-09-21] MEDS: allopurinoL 100 MG TAB PO SCH (08:47)
[2021-09-21] MEDS: AMIODARONE HCL 200 MG TAB PO SCH (08:47)
[2021-09-21] MEDS: METOLAZONE 5 MG TABLET PO SCH (08:47)
[2021-09-21] MEDS: FUROSEMIDE 40 MG TABLET PO SCH (08:47)
[2021-09-21] MEDS: JUVEN PACKET PO SCH (08:48)
[2021-09-21] MEDS: HEPARIN 5000 UNIT/ML 1 ML VIAL SQ SCH (08:48)
[2021-09-21] MEDS: ACETAZOLAMIDE 500 MG IV IV SCH (08:48)
[2021-09-21] MEDS: INSULIN -REGULAR HUMAN 50 UNIT/0.5 ML ML SQ SCH ×2 (08:54→11:30)
[2021-09-21] MEDS ORDERED: POTASSIUM 25 MEQ EFFERV TAB PO ONE (09:00)
[2021-09-21 09:27] VITALS: BP 142/64; TEMP 97.3
--- NOTE | 2021-09-21 10:07 | RAD REPORT ---
EXAM DESCRIPTION: RAD - Chest Single View - 09/21/2021 5:13 am CLINICAL HISTORY: pneumonia Chest pain. COMPARISON: Chest Single View dated 09/18/2021; Chest Single View dated 09/17/2021; Chest Single Vie w dated 09/07/2021; Chest Single View dated 09/03/2020 FINDINGS: Portable technique limits examination quality. Moderate bilateral pulmonary opacities are noted without real change since comparative study. The hea rt is mildly to moderately enlarged in size. No displaced fractures.Aortic atherosclerosis.
[2021-09-21 10:32] VITALS: O2SAT 91
--- NOTE | 2021-09-21 12:05 | P.PN ---
Subjective Date of Service: 09/21/21 Primary Care Provider: Dr. Mckenzie; Nephrology-Dr. Kincaid Chief Complaint: Dyspnea, edema Subjective: No new changes Physical Examination - Vital Signs Temperature: 97.3 F Blood Pressure: 142/64 Pulse: 88 Respirations: 18 Pulse Ox (%): 95 - Physical Exam General: Other (appears as his stated age) HEENT: Atraumatic, Normocephalic Neck: Supple, JVD not distended Respiratory: Other (symmetric chest expansion) Cardiovascular: No rubs, No murmurs Gastrointestinal: Soft and benign Musculoskeletal: No clubbing Integumentary: No warmth Neurological: Normal speech, Normal tone Urinary: Other (No bladder distention) External genitalia: Deferred Rectal: Deferred - Studies Medications List Reviewed: Yes Assessment And Plan - Plan 1. 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 SCr 2.2, at baseline. [place] po fluid intake. UCx neg. Monitor renal panel. 2. CHF. TTE on 09/2019 showed biventricular dilation + normal sized ventricles, ? Restrictive cardiomyopathy. TTE also w/ pulmo Htn w/ RVSP 50 mmHg. No hyperCa, sarcoidosis unlikely. +Serum protein gap, r/o amyloid dse, f/u spep, upep, serum SHARLA, K:L SFLC. No iron overload on iron panel, hemochromatosis unlikely. No hx of cancer. CT chest from 2013 showed pleural plaques, ?asbestos exposure, but no clear e/o pulmo Htn. If he indeed has RCM, this may be from pulmo fibrosis. Continue home O2. Lasix 80 mg po bid. Serum downtrending. Dc Metolazone. Start Spironolactone 25 mg po daily. 3. Recent UTI s/p abx. 4. BPH. Cont flomax 5. Htn. Cont currrent med regimen. 6. Chronic afib. On amiodarone. Not on AC therapy. 7. Chronic BLE edema c/b BLE Cellulitis. Local wound care. Received abx. 8. DM2. Mngt per primary team 9. Hypokalemia. Resolved. KCl repletion prn. 10.Metabolic Alkalosis. Diamox x 4 doses only. Dc prior to hosp dc. 11.Dispo. Ok to dc today. F/u in renal clinic in 2-3 wks.
[2021-09-22] MEDS ORDERED: SPIRONOLACTONE 25 MG TABLET PO SCH (09:00)
--- NOTE | 2021-09-25 01:47 | P.DS ---
Discharge Date: 09/21/21 Primary Care Provider: Dr. Mckenzie; Nephrology-Dr. Kincaid Disposition: ROUTINE DISCHARGE Discharge Condition: GOOD Reason for Admission: Dyspnea, edema - Problems (1) 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 Status: Acute (2) Atrial fibrillation with rapid ventricular response Onset Date: 01/20/18 Status: Acute (3) Chronic diastolic heart failure Status: Acute (4) Hyperlipidemia Status: Acute (5) Hypertension Status: Acute (6) Hypothyroidism Status: Acute (7) Obstructive sleep apnea Status: Acute (8) Pulmonary embolism Status: Acute (9) Respiratory failure Status: Resolved Qualifiers: Respiratory failure complication: unspecified whether with hypoxia or hypercapnia Brief History of Present Illness: 85-year-old male with history of chronic renal disease stage IV, diastolic CHF, atrial fibrillation not on chronic anticoagulation therapy, diabetes, hypothyroidism, morbid obesity and BPH. Patient recently hospitalized for acute on chronic renal disease and heart failure. Diuretics were adjusted during the course of his recent stay. Patient had been taking Lasix 100 mg 3 times a day along with metolazone. At discharge his diuretics were held. 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 Since that time patient has worsened with increasing shortness of breath and edema to the lower extremities. Patient also was treated for UTI. He came to the ER for further evaluation. In the ER patient was evaluated. Patient requiring 3 L per nasal cannula. Edema to the lower extremities noted. On lab white count 8.0, hemoglobin 11. Platelet count 164. Sodium 136, potassium 3.7. BUN of 47, creatinine 2.24 with a GFR of 28. Glucose 60. Covid test negative. BNP 2500. Troponin negative. Chest x-ray shows pulmonary edema. Patient given Lasix in the emergency room. Compression wrappings to be replaced. Patient admitted for further evaluation and treatment. Hospital Course: Patient is clinically doing well. Patient was diuresed aggressively. Patient's cardiac status has stable. Patient is compensated. At this time, patient is stable for discharge home. Vital Signs/Physical Exam: Temp Pulse Resp BP Pulse Ox 97.3 F 88 18 142/64 H 95 09/21/21 12:05 09/21/21 12:05 09/21/21 12:05 09/21/21 12:05 09/21/21 12:05 General: Alert, In no apparent distress, Oriented x3 Laboratory Data at Discharge: WBC 7.70 K/uL (4.3-10.9) 09/21/21 05:53 Hgb 11.2 g/dL (13.6-17.9) L 09/21/21 05:53 Hct 35.2 % (39.6-49.0) L 09/21/21 05:53 Plt Count 192 K/uL (152-406) 09/21/21 05:53 PT 13.2 SECONDS (9.5-12.5) H 09/17/21 13:13 INR 1.15 09/17/21 13:13 Sodium 131 mmol/L (136-145) L 09/21/21 05:53 Potassium 3.7 mmol/L (3.5-5.1) 09/21/21 05:53 BUN 53 mg/dL (7-18) H 09/21/21 05:53 Creatinine 2.17 mg/dL (0.55-1.3) H 09/21/21 05:53 Glucose 254 mg/dL (74-106) H 09/21/21 05:53 Magnesium 2.3 mg/dL (1.8-2.4) 09/21/21 05:53 Total Bilirubin 0.5 mg/dL (0.2-1.0) 09/17/21 13:13 AST 13 U/L (15-37) L 09/17/21 13:13 ALT 20 U/L (12-78) 09/17/21 13:13 Alkaline Phosphatase 106 U/L (45-117) 09/17/21 13:13 Home Medications: Allopurinol 100 mg PO DAILY 09/01/20 Pantoprazole [Protonix Tab*] 40 mg PO DAILY 09/01/20 Tamsulosin [Flomax*] 1 tab PO BID 09/01/20 Amiodarone HCl [Cordarone*] 200 mg PO DAILY #30 tab 09/06/20 Melatonin 10 mg PO BEDTIME PRN PRN #30 tablet 09/06/20 Atorvastatin Calcium 40 mg PO BEDTIME 09/06/21 Insulin Glargine Human [Lantus*] 60 units SQ BEDTIME 09/06/21 Levothyroxine Sodium [Levothyroxine] 50 mcg PO DAILY 09/06/21 hydrOXYzine HCL [Atarax*] 25 mg PO TID 09/06/21 Furosemide [Lasix*] 80 mg PO BID 09/18/21 Insulin Aspart [Novolog Flexpen] 15 unit SQ TIDWM 09/18/21 Gabriel [Gabriel*] 1 pkt PO BID #60 powd.pack 09/21/21 Spironolactone [Aldactone*] 25 mg PO DAILY #30 tab 09/21/21 New Medications: Spironolactone [Aldactone*] 25 mg PO DAILY #30 tab Gabriel [Gabriel*] 1 pkt PO BID #60 powd.pack Physician Discharge Instructions: OK TO DC IV AND DC HOME FOLLOW-UP WITH PRIMARY CARE PROVIDER IN 1-2 WEEKS FOLLOW-UP WITH Pulmonary and CARDIOLOGY IN 1-2 WEEKS RETURN TO THE ER IF symptoms worsen CALL or TEXT DR. CARVALHO AT [phone] IF ANY QUESTIONS REGARDING HOSPITAL STAY. PLEASE CALL THE FLOOR AT [phone] IF ANY MEDICATION OR NURSING QUESTIONS. Diet: AHA Activity: Fall precautions Followup: [facility] [Provider Group] - 1-2 Weeks (call to schedule an appointment ) Cesar Mckenzie MD [Primary Care Provider] - 1-2 Weeks (PCP- call to schedule an appointment ) Time spent managing pt's care (in minutes): 35
== END 2021-09-21 13:05 | disposition home or self-care (01) | DRG 291 ==
LOC: ER 12:11 → ERHOLD 14:58 → 2ND 09-18 11:10
PROVIDERS: ADMIT Family Medicine; ATTEND Family Medicine
DX: I13.0 Hypertensive heart and chronic kidney disease with heart failure and stage 1 through stage 4 chronic kidney disease, or unspecified chronic kidney disease (principal); I50.33 Acute on chronic diastolic (congestive) heart failure; J96.91 Respiratory failure, unspecified with hypoxia; I26.99 Other pulmonary embolism without acute cor pulmonale; N18.4 Chronic kidney disease, stage 4 (severe); I48.20 Chronic atrial fibrillation, unspecified; Z68.41 Body mass index [BMI] 40.0-44.9, adult; E87.3 Alkalosis; L03.116 Cellulitis of left lower limb; L03.115 Cellulitis of right lower limb; E11.22 Type 2 diabetes mellitus with diabetic chronic kidney disease; E03.9 Hypothyroidism, unspecified; N40.0 Benign prostatic hyperplasia without lower urinary tract symptoms; E78.5 Hyperlipidemia, unspecified; G47.00 Insomnia, unspecified; G47.33 Obstructive sleep apnea (adult) (pediatric); I89.0 Lymphedema, not elsewhere classified; R23.8 Other skin changes; E87.6 Hypokalemia; I27.20 Pulmonary hypertension, unspecified; Z79.4 Long term (current) use of insulin; Z99.81 Dependence on supplemental oxygen; Z20.822 Contact with and (suspected) exposure to COVID-19; E66.01 Morbid (severe) obesity due to excess calories
CPT/HCPCS: 36415; 51702; 71045; 80048; 80076; 81003; 81015; 82805; 82947; 83735; 83880; 84132; 84145; 84484; 85025; 85610; 87040; 87086; 87088; 93005; 93306; 96374; 97110; 97116; 97161; 97530; 99285; J1120; J1644; J1940; U0003

== ENCOUNTER 2021-10-29 15:02 | Inpatient (IN) | payer OTHER ==
--- OUTSIDE RECORDS SUMMARY | 2021-10-29 15:09 | XMS REPORT | Continuity of Care Document ---
:1935 Author Organization [facility] t Address [address] [place] [address] Care Team Providers Name Role Phone Pcp, Does Not Have A Primary Care Physician Jonah Attending Clinician Unavailable Cirilo RASHID Attending Clinician CIRILO Attending Clinician Unavailable Doctor Unassigned, Name Attending Clinician Unavailable SIMÓN [...] on on 00:00: [place] exertion) exertion) 00 [facility] Acute on Acute on Disease Active 2018-09 [...] 0-17 it y of on on 00:00: [address] Branch RAHEL RAHEL Disease Active 2018-09 [facility] (obstructi (obstructi 0-17 it y of ve sleep ve sleep 00:00: [place] apnea) apnea) 00 Medical Branch CHF CHF Disease Active 2018-09 Univers (congestiv (congestiv 0-16 it y of e heart e heart 00:00: [place] failure) failure) 00 Medica l Branch Elevated Elevated Disease Active Unive rs TSH TSH 8-16 ity of 00:00: [place] 00 Medical Branch Type 2 Type 2 Disease Active Univers diabetes diabetes 5-10 ity of mellitus mellitus 00:00: [place] with stage with stage 00 Me dical [...] deficiency deficiency 3-16 it y of 00:00: [place] 00 Medical Branch HLD HLD Disease Active Univers (hyperlipi (hyperlipi 3-16 it y of demia) demia) 00:00: [place] 00 Medical Branch 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 00:00: [place] with with 00 Medical neuropathy neuropathy Br anch OTIS (acute OTIS (acute Disease Active 2014-09 U nivers kidney kidney 2-16 ity of injury) injury) 00:00: [place] 00 Medical Branch Neuropathy Neuropathy Disease Active 2014-09 U nivers 2-16 ity of 00:00: [place] 00 Medical Branch Pain, Pain, Diagnosis Active [...] 2-16 issue ity of Iodide adverse 00:00: [place] Containi reaction 00 Medica l ng s Branch Products IODINE Drug Active Other-Cmnt 2014-09 Univer s AND Class 2-16 ity of IODIDE 00:00: [place] CONTAINI 00 Medical NG Branch PRODUCTS Social History Social Habit Start Date Stop Date Quantity Comments Source Exposure to Not sure [facility] SARS-CoV-2 (event) Medica l Branch Tobacco use and 2020-09-13 2020-09-13 Never used [facility] exposure 00:00:00 00:00:00 Medical Branch Alcohol intake 2020-09-13 2020-09-13 0 /d [facility] 00:00:00 00:00:00 Medical Branch Sex [birth year] [facility] 00:00:00 00:00:00 Medical Branch Smoking Status Start Date Stop Date Source Former smoker 2020-09-13 00:00:00 2020-09-13 00:00:00 [facility] Medical Innis Medications Ordered Filled Start Stop Current Ordering Indication Dosage Frequency Signature Comments Components Source Medication Medication Date Date Medication? Clinician (SIG) Name Name amiodarone Yes 200mg Take 1 Univ ers 200 mg 7-08 tablet by ity of tablet 00:00: mouth [place] 00 daily. Medical Branch amiodarone Yes 200mg [...] mouth [place] 00 daily. Medical Branch amiodarone 0 Yes 200mg Take 1 Univ ers 200 mg 7-08 tablet by ity of tablet 00:00: mouth [place] 00 daily. Medical Branch amiodarone Yes 200mg Take 1 Univ ers 200 mg 1-29 tablet by ity of tablet 00:00: mouth [place] 00 daily. Medical Branch amiodarone 2020- No 200mg Take 1 Uni vers 200 mg 10-2108 tablet by ity of tablet 00:00: 00:00 [...] by mouth ity of tablet 20:45: daily. [facility] POTASSIUM 2019-09 Yes 2 (two) Unive rs [...] by mouth ity of tablet 20:45: daily. [facility] POTASSIUM 2019-09 Yes 2 (two) Unive rs CHLORIDE, 2-22 times ity of BULK, MISC 20:45: daily. [facility] furosemide 2019-09 Yes 100mg Take 100 Un [...] by mouth ity of tablet 20:45: daily. [facility] POTASSIUM 2019-09 Yes 2 (two) Unive rs CHLORIDE, 2-22 times ity of BULK, MISC 20:45: daily. [facility] furosemide 2019-09 Yes 100mg Take 100 Un debby (LASIX) 80 2-22 mg by ity of mg tablet 20:45: mouth daily. Medical Branch metOLazone 2019-09 Yes 10mg Take 10 mg U nivers 10 mg 2-22 by mouth ity of tablet 20:45: daily. [facility] POTASSIUM 2019-09 Yes 2 (two) Unive rs CHLORIDE, 2-22 times ity of BULK, MISC 20:45: daily. [facility] furosemide 2019-09 Yes 100mg Take 100 Un [place] (LASIX) 80 2-22 mg by ity of mg tablet 20:45: mouth daily. Medical Branch metOLazone 2019-09 Yes 10mg Take 10 mg U nivers 10 mg 2-22 by mouth ity of tablet 20:45: daily. [facility] POTASSIUM 2019-09 Yes 2 (two) Unive rs CHLORIDE, 2-22 times ity of BULK, MISC 20:45: daily. [address] [place] [address] levothyroxi 2019-09 Yes Take by Un debby ne 50 mcg 2-22 mouth ity of tablet 20:41: daily. [address] levothyroxi 2019-09 Yes Take by Un [place] ne 50 mcg 2-22 mouth ity of tablet 20:41: daily. [address] levothyroxi 2020-1 Yes Take by Un [place] ne 50 mcg 2-22 mouth ity of tablet 20:41: daily. [address] levothyroxi 2019- Yes Take by Un [place] ne 50 mcg 2-22 mouth ity of tablet 20:41: daily. [address] levothyroxi 2019- Yes Take by Un [place] 50 mcg 2-22 mouth ity of tablet 20:41: daily. [address] levothyroxi 2019- Yes Take by Un [place] ne 50 mcg 2-22 mouth ity of tablet 20:41: daily. [address] levothyroxi 2019-09 Yes Take by Un [place] ne 50 mcg 2-22 mouth ity of tablet 20:41: daily. [address] levothyroxi 2019-09 Yes Take by Un [place] ne 50 mcg 2-22 mouth ity of tablet 20:41: daily. [address] carvedilol 2019-09 Yes 25mg Take 25 mg U nivers (COREG) 25 2-22 by mouth 2 ity of mg tablet 20:41: (two) [place] 30 times Medical daily with Branch meals. carvedilol 2019-09 Yes 25mg Take 25 mg U nivers (COREG) 25 2-22 by mouth 2 ity of mg tablet 20:41: (two) [place] 30 times Medical daily with Branch meals. carvedilol 2019-09 Yes 25mg Take 25 mg U nivers (COREG) 25 2-22 by mouth 2 ity of mg tablet 20:41: (two) [place] 30 times Medical daily with Branch meals. carvedilol 2019- Yes 25mg Take 25 mg U nivers (COREG) 25 2-22 by mouth 2 ity of mg tablet 20:41: (two) [place] 30 times Medical daily with Branch meals. carvedilol 2019-09 Yes 25mg Take 25 mg U nivers (COREG) 25 2-22 by mouth 2 ity of mg tablet 20:41: (two) [place] 30 times Medical daily with Branch meals. carvedilol 2019- Yes 25mg Take 25 mg U nivers (COREG) 25 2-22 by mouth 2 ity of mg tablet 20:41: (two) [place] 30 times Medical daily with Branch meals. carvedilol 2019- Yes 25mg Take 25 mg U nivers (COREG) 25 2-22 by mouth 2 ity of mg tablet 20:41: (two) [place] 30 times Medical daily with Branch meals. carvedilol 2019-09 Yes 25mg Take 25 mg U nivers (COREG) 25 2-22 by mouth 2 ity of mg tablet 20:41: (two) [place] 30 times Medical daily with Branch meals. furosemide 2019-09 Yes 100mg Take 100 Un [place] (LASIX) 80 2-22 mg by ity of mg tablet 14:45: mouth [place] 04 daily. [facility] Branch metOLazone 2019-09 Yes 10mg Take 10 mg U nivers 10 mg 2-22 by mouth ity of tablet 14:45: daily. [facility] POTASSIUM 2019-09 Yes 2 (two) Unive rs CHLORIDE, 2-22 times ity of BULK, MISC 14:45: daily. [facility] furosemide 2019-09 Yes 100mg Take 100 Un [place] (LASIX) 80 2-22 mg by ity of mg tablet 14:45: mouth [place] [address] [facility] metOLazone 2019-09 Yes 10mg Take 10 mg U nivers 10 mg 2-22 by mouth ity of tablet 14:45: daily. [facility] POTASSIUM 2019-09 Yes 2 (two) Unive rs CHLORIDE, 2-22 times ity of BULK, MISC 14:45: daily. [facility] furosemide 2019-09 Yes 100mg Take 100 Un [place] (LASIX) 80 2-22 mg by ity of mg tablet 14:45: mouth [place] [address] [facility] metOLazone 2019-09 Yes 10mg Take 10 mg U nivers 10 mg 2-22 by mouth ity of tablet 14:45: daily. [facility] POTASSIUM 2019-09 Yes 2 (two) Unive rs CHLORIDE, 2-22 times ity of BULK, MISC 14:45: daily. [facility] furosemide 2019-09 Yes 100mg Take 100 Un [place] (LASIX) 80 2-22 mg by ity of mg tablet 14:45: mouth [place] [address] [facility] metOLazone 2019-09 Yes 10mg Take 10 mg U nivers 10 mg 2-22 by mouth ity of tablet 14:45: daily. [facility] POTASSIUM 2019-09 Yes 2 (two) Unive rs CHLORIDE, 2-22 times ity of BULK, MISC 14:45: daily. [address] levothyroxi 2020- Yes Take by Un [place] ne 50 mcg 2-22 mouth ity of tablet 14:41: daily. [address] levothyroxi 2019- Yes Take by Un [place] ne 50 mcg 2-22 mouth ity of tablet 14:41: daily. [address] levothyroxi 2019- Yes Take by Un [place] ne 50 mcg 2-22 mouth ity of tablet 14:41: daily. [address] levothyroxi 2019- Yes Take by Un [place] ne 50 mcg 2-22 mouth ity of tablet 14:41: daily. [address] carvedilol 2019- Yes 25mg Take 25 mg U nivers (COREG) 25 2-22 by mouth 2 ity of mg tablet 14:41: (two) [place] 30 times Medical daily with Branch meals. carvedilol 2019- Yes 25mg Take 25 mg U nivers (COREG) 25 2-22 by mouth 2 ity of mg tablet 14:41: (two) [place] 30 times Medical daily with Branch meals. carvedilol 2019- Yes 25mg Take 25 mg U nivers (COREG) 25 2-22 by mouth 2 ity of mg tablet 14:41: (two) [place] 30 times Medical daily with Branch meals. carvedilol 2019- Yes 25mg Take 25 mg U nivers (COREG) 25 2-22 by mouth 2 ity of mg tablet 14:41: (two) [place] 30 times Medical daily with Branch meals. spironolact 2020-0 Yes Univer s one 25 mg 6-01 ity of tablet 00:00: [place] [facility] spironolact 2020-0 Yes Univer s one 25 mg 6-01 ity of tablet 00:00: [place] [facility] spironolact 2020-0 Yes Univer s one 25 mg 6-01 ity of tablet 00:00: [place] [facility] spironolact 2020-0 Yes Univer s one 25 mg 6-01 ity of tablet 00:00: [place] [facility] spironolact 2020-0 Yes Univer s one 25 mg 6-01 ity of tablet 00:00: [place] [facility] spironolact 2020-0 Yes Univer s one 25 mg 6-01 ity of tablet 00:00: [place] [address] Medical Branch spironolact 2020-0 Yes Univer s one 25 mg 6-01 ity of tablet 00:00: [place] Medical Branch spironolact 2020-0 Yes Univer s one 25 mg 6-01 ity of tablet 00:00: [place] Medical Branch spironolact 2020-0 Yes Univer s one 25 mg 6-01 ity of tablet 00:00: [place] Medical Branch spironolact 2020-0 Yes Univer s one 25 mg 6-01 ity of tablet 00:00: [place] [address] Medical Branch spironolact 2020-0 Yes Univer s one 25 mg 6-01 ity of tablet 00:00: [place] [address] Medical Branch spironolact 2020-0 Yes Univer s one 25 mg 6-01 ity of tablet 00:00: [place] [address] Medical Branch GABAPENTIN 2019-1 Yes [id number] TAKE 1 U nivers 300 mg 2-19 CAPSULE AT ity of capsule 00:00: BEDTIME [place] [address] Medical Branch GABAPENTIN 2019-1 Yes [id number] TAKE 1 U nivers 300 mg 2-19 CAPSULE AT ity of capsule 00:00: BEDTIME [place] [address] Medical Branch GABAPENTIN 2019-1 Yes [id number] TAKE 1 U nivers 300 mg 2-19 CAPSULE AT ity of capsule 00:00: BEDTIME [place] [address] Medical Branch GABAPENTIN 2019-1 Yes [id number] TAKE 1 U nivers 300 mg 2-19 CAPSULE AT ity of capsule 00:00: BEDTIME [place] [address] Medical Branch GABAPENTIN 2019-1 Yes [id number] TAKE 1 U nivers 300 mg 2-19 CAPSULE AT ity of capsule 00:00: BEDTIME [place] [address] Medical Branch GABAPENTIN 2019-1 Yes [id number] TAKE 1 U nivers 300 mg 2-19 CAPSULE AT ity of capsule 00:00: BEDTIME [place] [address] Medical Branch GABAPENTIN 2019-1 Yes [id number] TAKE 1 U nivers 300 mg 2-19 CAPSULE AT ity of capsule 00:00: BEDTIME [place] [address] Medical Branch GABAPENTIN 2019-1 Yes [id number] TAKE 1 U nivers 300 mg 2-19 CAPSULE AT ity of capsule 00:00: BEDTIME [place] [address] Medical Branch GABAPENTIN 2019-1 Yes [id number] TAKE 1 U nivers 300 mg 2-19 CAPSULE AT ity of capsule 00:00: BEDTIME [place] [address] Medical Branch GABAPENTIN 2019-1 Yes [id number] TAKE 1 U nivers 300 mg 2-19 CAPSULE AT ity of capsule 00:00: BEDTIME [place] Medical Branch GABAPENTIN 2019-1 Yes [id number] TAKE 1 U nivers 300 mg 2-19 CAPSULE AT ity of capsule 00:00: BEDTIME [place] Medical Branch GABAPENTIN 2019-1 Yes [id number] TAKE 1 U nivers 300 mg 2-19 CAPSULE AT ity of capsule 00:00: BEDTIME [place] Medical Branch GABAPENTIN 2019-1 Yes [id number] TAKE 1 U nivers 300 mg 2-19 CAPSULE AT ity of capsule 00:00: BEDTIME [place] Medical Branch GABAPENTIN 2019-1 Yes [id number] TAKE 1 U nivers 300 mg 2-19 CAPSULE AT ity of capsule 00:00: BEDTIME [place] Medical Branch GABAPENTIN 2019-1 Yes [id number] TAKE 1 U nivers 300 mg 2-19 CAPSULE AT ity of capsule 00:00: BEDTIME [place] Medical Branch GABAPENTIN 2019-1 Yes [id number] TAKE 1 U nivers 300 mg 2-19 CAPSULE AT ity of capsule 00:00: BEDTIME [place] Medical Branch GABAPENTIN 2019-1 Yes [id number] TAKE 1 U nivers 300 mg 2-19 CAPSULE AT ity of capsule 00:00: BEDTIME [place] Medical Branch ethacrynic 2019-1 Yes [id number] 50mg Take 2 Univers acid 25 mg 2-03 02 tablets by ity of tablet 00:00: mouth [place] 00 every Medical morning Branch and evening. ethacrynic 2019-1 Yes [id number] 50mg Take 2 Univers acid 25 mg 2-03 02 tablets by ity of tablet 00:00: mouth [place] 00 every Medical morning Branch and evening. ethacrynic 2019-1 Yes [id number] 50mg Take 2 Univers acid 25 mg 2-03 02 tablets by ity of tablet 00:00: mouth [place] 00 every Medical morning Branch and evening. ethacrynic 2019-1 Yes [id number] 50mg Take 2 Univers acid 25 mg 2-03 02 tablets by ity of tablet 00:00: mouth [place] 00 every Medical morning Branch and evening. ethacrynic 2019-1 Yes [id number] 50mg Take 2 Univers acid 25 mg 2-03 02 tablets by ity of tablet 00:00: mouth [place] 00 every Medical morning Branch and evening. ethacrynic 2019-1 Yes [id number] 50mg Take 2 Univers acid 25 mg 2-03 02 tablets by ity of tablet 00:00: mouth [place] 00 every Medical morning Branch and evening. ethacrynic 2019- Yes [id number] 50mg Take 2 Univers acid 25 mg 2-03 02 tablets by ity of tablet 00:00: mouth [place] 00 every Medical morning Branch and evening. ethacrynic 2019- Yes [id number] 50mg Take 2 Univers acid 25 mg 2-03 02 tablets by ity of tablet 00:00: mouth [place] 00 every Medical morning Branch and evening. ethacrynic 2019- Yes [id number] 50mg Take 2 Univers acid 25 mg 2-03 02 tablets by ity of tablet 00:00: mouth [place] 00 every Medical morning Branch and evening. ethacrynic 2019- Yes [id number] 50mg Take 2 Univers acid 25 mg 2-03 02 tablets by ity of tablet 00:00: mouth [place] 00 every Medical morning Branch and evening. ethacrynic 2019- Yes [id number] 50mg Take 2 Univers acid 25 mg 2-03 02 tablets by ity of tablet 00:00: mouth [place] 00 every Medical morning Branch and evening. ethacrynic 2019- Yes [id number] 50mg Take 2 Univers acid 25 mg 2-03 02 tablets by ity of tablet 00:00: mouth [place] 00 every Medical morning Branch and evening. ethacrynic 2019- Yes [id number] 50mg Take 2 Univers acid 25 mg 2-03 02 tablets by ity of tablet 00:00: mouth [place] 00 every Medical morning Branch and evening. ethacrynic 2019- Yes [id number] 50mg Take 2 Univers acid 25 mg 2-03 02 tablets by ity of tablet 00:00: mouth [place] 00 every Medical morning Branch and evening. ethacrynic 2019- Yes [id number] 50mg Take 2 Univers acid 25 mg 2-03 02 tablets by ity of tablet 00:00: mouth [place] 00 every Medical morning Branch and evening. ethacrynic 2019- Yes [id number] 50mg Take 2 Univers acid 25 mg 2-03 02 tablets by ity of tablet 00:00: mouth [place] 00 every Medical morning Branch and evening. ethacrynic 2019- Yes [id number] 50mg Take 2 Univers acid 25 mg 2-03 02 tablets by ity of tablet 00:00: mouth [place] 00 every Medical morning Branch and evening. carvedilol 2018-09 Yes 25mg Take 25 mg U nivers (COREG) 25 0-29 by mouth 2 ity of mg tablet 18:56: (two) [place] [address] times Medical daily with Branch meals. Levothyroxi 2018-09 Yes Take by Un debby ne 25 mcg 0-29 mouth. ity of capsule 18:56: [address] carvedilol 2018-09 Yes 25mg Take 25 mg U nivers (COREG) 25 0-29 by mouth 2 ity of mg tablet 18:56: (two) [place] [address] times Medical daily with Branch meals. Levothyroxi 2018-09 Yes Take by Un [place] ne 25 mcg 0-29 mouth. ity of capsule 18:56: [address] carvedilol 2018-09 Yes 25mg Take 25 mg U nivers (COREG) 25 0-29 by mouth 2 ity of mg tablet 18:56: (two) [place] [address] times Medical daily with Branch meals. Levothyroxi 2018-09 Yes Take by Un [place] ne 25 mcg 0-29 mouth. ity of capsule 18:56: [address] carvedilol 2018-09 Yes 25mg Take 25 mg U nivers (COREG) 25 0-29 by mouth 2 ity of mg tablet 18:56: (two) [place] [address] times Medical daily with Branch meals. Levothyroxi 2018-09 Yes Take by Un [place] ne 25 mcg 0-29 mouth. ity of capsule 18:56: [address] carvedilol 2018-09 Yes 25mg Take 25 mg U nivers (COREG) 25 0-29 by mouth 2 ity of mg tablet 18:56: (two) [place] [address] times Medical daily with Branch meals. Levothyroxi 2018-09 Yes Take by Un [place] ne 25 mcg 0-29 mouth. ity of capsule 18:56: [address] tamsulosin Yes .4mg Take 1 Unive rs 0.4 mg 24 7-11 capsule by ity of hr capsule 00:00: mouth [place] 00 daily. Medical Branch tamsulosin 2018- Yes .4mg Take 1 Unive rs 0.4 [...] hr capsule 00:00: mouth [place] [address] [facility] 50 0 Yes TAKE 1 Unive rs mg tablet 6-25 TABLET ity of 00:00: DAILY [facility] 50 0 Yes TAKE 1 Unive rs mg tablet 6-25 TABLET ity of 00:00: DAILY [facility] 50 0 Yes TAKE 1 Unive rs mg tablet 6-25 TABLET ity of 00:00: DAILY [facility] 50 0 Yes TAKE 1 Unive rs mg tablet 6-25 TABLET ity of 00:00: DAILY [facility] 50 0 Yes TAKE 1 Unive rs mg tablet 6-25 TABLET ity of 00:00: DAILY [facility] 50 0 Yes TAKE 1 Unive rs mg tablet 6-25 TABLET ity of 00:00: DAILY [facility] 50 0 Yes TAKE 1 Unive rs mg tablet 6-25 TABLET ity of 00:00: DAILY [facility] 50 0 Yes TAKE 1 Unive rs mg tablet 6-25 TABLET ity of 00:00: DAILY [facility] 50 0 Yes TAKE 1 Unive rs mg tablet 6-25 TABLET ity of 00:00: DAILY [facility] 50 0 Yes TAKE 1 Unive rs mg tablet 6-25 TABLET ity of 00:00: DAILY [facility] 50 0 Yes TAKE 1 Unive rs mg tablet 6-25 TABLET ity of 00:00: DAILY [facility] 50 0 Yes TAKE 1 Unive rs mg tablet 6-25 TABLET ity of 00:00: DAILY Medical Branch JANUVIA 50 2019-0 Yes TAKE 1 Unive rs mg tablet 6-25 TABLET ity of 00:00: DAILY [place] [facility] Branch JANIA 50 2019-0 Yes TAKE 1 Unive rs mg tablet 6-25 TABLET ity of 00:00: DAILY [place] [facility] Yes TAKE 1 Unive rs mg tablet 6-25 TABLET ity of 00:00: [facility] [place] [facility] 1 Unive rs mg tablet 6-25 TABLET ity of 00:00: [facility]ILY [place] [facility] Yes TAKE 1 Unive rs mg tablet 6-25 TABLET ity of 00:00: DAILY [place] [facility] Branch Insulin 2017-09 Yes [id number] 20U inject 20 U nivers Glargine 1-06 Units ity of (LANTUS 00:00: under the [place] [facility] 00 skin Medical U-100 daily. Branch INSULIN) 100 unit/mL (3 mL) injection insulin 2017-09 Yes [id number] 10U inject 10 U nivers aspart 1-06 Units ity of U-100 00:00: under the [place] (NOVOLOG 00 skin 2 Medical FLEXPEN (two) Branch U-100 times INSULIN) daily 100 unit/mL before injection breakfast and dinner. Insulin 2017-09 Yes [id number] 20U inject 20 U nivers Glargine 1-06 Units ity of (LANTUS 00:00: under the [place] [address] skin Medical U-100 daily. Branch INSULIN) 100 unit/mL (3 mL) injection insulin 2017-09 Yes [id number] 10U inject 10 U nivers aspart 1-06 Units ity of U-100 00:00: under the [place] (NOVOLOG 00 skin 2 Medical FLEXPEN (two) Branch U-100 times INSULIN) daily 100 unit/mL before injection breakfast and dinner. Insulin 2017-09 Yes [id number] 20U inject 20 U nivers Glargine 1-06 Units ity of (LANTUS 00:00: under the [place] SOLOST[facility] 00 skin Medical U-100 daily. Branch INSULIN) 100 unit/mL (3 mL) injection insulin 2017-09 Yes [id number] 10U inject 10 U nivers aspart 1-06 Units ity of U-100 00:00: under the [place] (NOVOLOG 00 skin 2 Medical FLEXPEN (two) Branch U-100 times INSULIN) daily 100 unit/mL before injection breakfast and dinner. Insulin 2017-09 Yes [id number] 20U inject 20 U nivers Glargine 1-06 Units ity of (LANTUS 00:00: under the [place] [facility] 00 skin Medical U-100 daily. Branch INSULIN) 100 unit/mL (3 mL) injection insulin 2017-09 Yes [id number] 10U inject 10 U nivers aspart 1-06 Units ity of U-100 00:00: under the [place] (NOVOLOG 00 skin 2 Medical FLEXPEN (two) Branch U-100 times INSULIN) daily 100 unit/mL before injection breakfast and dinner. Insulin 2017-09 Yes [id number] 20U inject 20 U nivers Glargine 1-06 Units ity of (LANTUS 00:00: under the [place] [facility] 00 skin Medical U-100 daily. Branch INSULIN) 100 unit/mL (3 mL) injection insulin 2017-09 Yes [id number] 10U inject 10 U nivers aspart 1-06 Units ity of U-100 00:00: under the [place] (NOVOLOG 00 skin 2 Medical FLEXPEN (two) Branch U-100 times INSULIN) daily 100 unit/mL before injection breakfast and dinner. Insulin 2017-09 Yes [id number] 20U inject 20 U nivers Glargine 1-06 Units ity of (LANTUS 00:00: under the [place] [facility] 00 skin Medical U-100 daily. Branch INSULIN) 100 unit/mL (3 mL) injection insulin 2017-09 Yes [id number] 10U inject 10 U nivers aspart 1-06 Units ity of U-100 00:00: under the [place] (NOVOLOG 00 skin 2 Medical FLEXPEN (two) Branch U-100 times INSULIN) daily 100 unit/mL before injection breakfast and dinner. Insulin 2017-09 Yes [id number] 20U inject 20 U nivers Glargine 1-06 Units ity of (LANTUS 00:00: under the [place] [facility] 00 skin Medical U-100 daily. Branch INSULIN) 100 unit/mL (3 mL) injection insulin 2017-09 Yes [id number] 10U inject 10 U nivers aspart 1-06 Units ity of U-100 00:00: under the [place] (NOVOLOG 00 skin 2 Medical FLEXPEN (two) Branch U-100 times INSULIN) daily 100 unit/mL before injection breakfast and dinner. Insulin 2017-09 Yes [id number] 20U inject 20 U nivers Glargine 1-06 Units ity of (LANTUS 00:00: under the [place] [facility] 00 skin Medical U-100 daily. Branch INSULIN) 100 unit/mL (3 mL) injection Insulin 2017-09 Yes [id number] 20U inject 20 U nivers Glargine 1-06 Units ity of (LANTUS 00:00: under the [place] [facility] U-[facility] daily. Branch INSULIN) 100 unit/mL (3 mL) injection insulin 2017-09 Yes [id number] 10U inject 10 U nivers aspart 1-06 Units ity of U-100 00:00: under the [place] (NOVOLOG 00 skin 2 Medical FLEXPEN (two) Branch U-100 times INSULIN) daily 100 unit/mL before injection breakfast and dinner. insulin 2017-09 Yes [id number] 10U inject 10 U nivers aspart 1-06 Units ity of U-100 00:00: under the [place] (NOVOLOG 00 skin 2 Medical FLEXPEN (two) Branch U-100 times INSULIN) daily 100 unit/mL before injection breakfast and dinner. Insulin 2017-09 Yes [id number] 20U inject 20 U nivers Glargine 1-06 Units ity of (LANTUS 00:00: under the [place] [address] skin Medical U-100 daily. Branch INSULIN) 100 unit/mL (3 mL) injection insulin 2017-09 Yes [id number] 10U inject 10 U nivers aspart 1-06 Units ity of U-100 00:00: under the [place] (NOVOLOG 00 skin 2 Medical FLEXPEN (two) Branch U-100 times INSULIN) daily 100 unit/mL before injection breakfast and dinner. Insulin 2017-09 Yes [id number] 20U inject 20 U nivers Glargine 1-06 Units ity of (LANTUS 00:00: under the [place] [facility] skin Medical U-100 daily. Branch INSULIN) 100 unit/mL (3 mL) injection insulin 2017-09 Yes [id number] 10U inject 10 U nivers aspart 1-06 Units ity of U-100 00:00: under the [place] (NOVOLOG 00 skin 2 Medical FLEXPEN (two) Branch U-100 times INSULIN) daily 100 unit/mL before injection breakfast and dinner. Insulin 2017-09 Yes [id number] 20U inject 20 U nivers Glargine 1-06 Units ity of (LANTUS 00:00: under the [place] SOLOSTPA 00 skin Medical U-100 daily. Branch INSULIN) 100 unit/mL (3 mL) injection insulin 2017-09 Yes [id number] 10U inject 10 U nivers aspart 1-06 Units ity of U-100 00:00: under the [place] (NOVOLOG 00 skin 2 Medical FLEXPEN (two) Branch U-100 times INSULIN) daily 100 unit/mL before injection breakfast and dinner. Insulin 2017-09 Yes [id number] 20U inject 20 U nivers Glargine 1-06 Units ity of (LANTUS 00:00: under the [place] [address] skin Medical U-100 daily. Branch INSULIN) 100 unit/mL (3 mL) injection insulin 2017-09 Yes [id number] 10U inject 10 U nivers aspart 1-06 Units ity of U-100 00:00: under the [place] (NOVOLOG 00 skin 2 Medical FLEXPEN (two) Branch U-100 times INSULIN) daily 100 unit/mL before injection breakfast and dinner. Insulin 2017-09 Yes [id number] 20U inject 20 U nivers Glargine 1-06 Units ity of (LANTUS 00:00: under the [place] [address] skin Medical U-100 daily. Branch INSULIN) 100 unit/mL (3 mL) injection insulin 2017-09 Yes [id number] 10U inject 10 U nivers aspart 1-06 Units ity of U-100 00:00: under the [place] (NOVOLOG 00 skin 2 Medical FLEXPEN (two) Branch U-100 times INSULIN) daily 100 unit/mL before injection breakfast and dinner. Insulin 2017-09 Yes [id number] 20U inject 20 U nivers Glargine 1-06 Units ity of (LANTUS 00:00: under the [place] [facility] 00 skin Medical U-100 daily. Branch INSULIN) 100 unit/mL (3 mL) injection insulin 2017-09 Yes [id number] 10U inject 10 U nivers aspart 1-06 Units ity of U-100 00:00: under the [place] (NOVOLOG 00 skin 2 Medical FLEXPEN (two) Branch U-100 times INSULIN) daily 100 unit/mL before injection breakfast and dinner. Insulin 2017-09 Yes [id number] 20U inject 20 U nivers Glargine 1-06 Units ity of (LANTUS 00:00: under the [place] 00 skin Medical U-100 daily. Branch INSULIN) 100 unit/mL (3 mL) injection insulin 2017-09 Yes [id number] 10U inject 10 U nivers aspart 1-06 Units ity of U-100 00:00: under the [place] (NOVOLOG 00 skin 2 Medical FLEXPEN (two) Branch U-100 times INSULIN) daily 100 unit/mL before injection breakfast and dinner. Insulin 2017-09 Yes [id number] 20U inject 20 U nivers Glargine 1-06 Units ity of (LANTUS 00:00: under the [place] [facility] 00 skin Medical U-100 daily. Branch INSULIN) 100 unit/mL (3 mL) injection insulin 2017-09 Yes [id number] 10U inject 10 U nivers aspart 1-06 Units ity of U-100 00:00: under the [place] (NOVOLOG 00 skin 2 Medical FLEXPEN (two) Branch U-100 times INSULIN) daily 100 unit/mL before injection breakfast and dinner. HydrALAZINE HydrALAZINE Yes Michael [address] [facility] HCl HCl 808 [place] with food [facility]: [facility] ATORVASTATI Yes [id number] TAKE 1 Univers N 40 mg 6-15 TABLET AT ity of tablet 00:00: BEDTIME [address] ATORVASTATI Yes [id number] TAKE 1 Univers N 40 mg 6-15 TABLET AT ity of tablet 00:00: BEDTIME [address] ATORVASTATI Yes [id number] TAKE 1 Univers N 40 mg 6-15 TABLET AT ity of tablet 00:00: BEDTIME [place] [facility] ATORVASTATI Yes [id number] TAKE 1 Univers N 40 mg 6-15 TABLET AT ity of tablet 00:00: BEDTIME [address] ATORVASTATI Yes [id number] TAKE 1 Univers N 40 mg 6-15 TABLET AT ity of tablet 00:00: BEDTIME [address] ATORVASTATI Yes [id number] TAKE 1 Univers N 40 mg 6-15 TABLET AT ity of tablet 00:00: BEDTIME [place] [facility] ATORVASTATI 2018-0 Yes [id number] TAKE 1 Univers N 40 mg 6-15 TABLET AT ity of tablet 00:00: BEDTIME [place] [facility] ATORVASTATI 0 Yes [id number] TAKE 1 Univers N 40 mg 6-15 TABLET AT ity of tablet 00:00: BEDTIME [place] [facility] ATORVASTATI 0 Yes [id number] TAKE 1 Univers N 40 mg 6-15 TABLET AT ity of tablet 00:00: BEDTIME [place] [facility] ATORVASTATI 0 Yes [id number] TAKE 1 Univers N 40 mg 6-15 TABLET AT ity of tablet 00:00: BEDTIME [place] [facility] ATORVASTATI 0 Yes [id number] TAKE 1 Univers N 40 mg 6-15 TABLET AT ity of tablet 00:00: BEDTIME [place] [facility] ATORVASTATI 0 Yes [id number] TAKE 1 Univers N 40 mg 6-15 TABLET AT ity of tablet 00:00: BEDTIME [place] [facility] ATORVASTATI 0 Yes [id number] TAKE 1 Univers N 40 mg 6-15 TABLET AT ity of tablet 00:00: BEDTIME [place] [facility] ATORVASTATI 20180 Yes [id number] TAKE 1 Univers N 40 mg 6-15 TABLET AT ity of tablet 00:00: BEDTIME [place] [facility] ATORVASTATI 20180 Yes [id number] TAKE 1 Univers N 40 mg 6-15 TABLET AT ity of tablet 00:00: BEDTIME [place] [facility] Branch ATORVASTATI 2018-0 Yes [id number] TAKE 1 Univers N 40 mg 6-15 TABLET AT ity of tablet 00:00: BEDTIME [place] [facility] ATORVASTATI 20180 Yes [id number] TAKE 1 Univers N 40 mg 6-15 TABLET AT ity of tablet 00:00: BEDTIME [address] omeprazole 2017-0 Yes TAKE ONE Uni vers 20 mg 9-23 (1) ity of capsule 00:00[place] BY [place]OUTH Medical DAILY. Branch omeprazole [id number] Yes TAKE ONE Uni vers 20 mg 9-23 (1) ity of capsule 00:00: [place] BY MOUTH Medical DAILY. Inn[place] omeprazole Yes TAKE ONE Uni vers 20 mg 9-23 (1) ity of capsule 00:00: [place] 00 BY MOUTH Medical DAILY. [place] omeprazole Yes TAKE ONE Uni vers 20 mg 9-23 (1) ity of capsule 00:00: [place] 00 BY MOUTH Medical DAILY. [place] omeprazole Yes TAKE ONE Uni vers 20 mg 9-23 (1) ity of capsule 00:00: [place] 00 BY MOUTH Medical DAILY. [place] omeprazole Yes TAKE ONE Uni vers 20 mg 9-23 (1) ity of capsule 00:00: [place] 00 BY MOUTH Medical DAILY. [place] omeprazole Yes TAKE ONE Uni vers 20 mg 9-23 (1) ity of capsule 00:00: [place] 00 BY MOUTH Medical DAILY. [place] omeprazole Yes TAKE ONE Uni vers 20 mg 9-23 (1) ity of capsule 00:00: [place] 00 BY MOUTH Medical DAILY. [place] omeprazole Yes TAKE ONE Uni vers 20 mg 9-23 (1) ity of capsule 00:00: [place] 00 BY MOUTH Medical DAILY. [place] omeprazole Yes TAKE ONE Uni vers 20 mg 9-23 (1) ity of capsule 00:00: [place] 00 BY MOUTH Medical DAILY. [place] omeprazole Yes TAKE ONE Uni vers 20 mg 9-23 (1) ity of capsule 00:00: [place] 00 BY MOUTH Medical DAILY. [place] omeprazole Yes TAKE ONE Uni vers 20 mg 9-23 (1) ity of capsule 00:00: [place] 00 BY MOUTH Medical DAILY. [place] omeprazole Yes TAKE ONE Uni vers 20 mg 9-23 (1) ity of capsule 00:00: [place] 00 BY MOUTH Medical DAILY. [place] omeprazole Yes TAKE ONE Uni vers 20 mg 9-23 (1) ity of capsule 00:00: [place] 00 BY MOUTH Medical DAILY. [place] omeprazole Yes TAKE ONE Uni vers 20 mg 9-23 (1) ity of capsule 00:00: [place] 00 BY MOUTH Medical DAILY. Branch omeprazole 0 Yes TAKE ONE Uni vers 20 mg 9-23 (1) ity of capsule 00:00: [place] 00 BY MOUTH Medical DAILY. Branch omeprazole 0 Yes TAKE ONE Uni vers 20 mg 9-23 (1) ity of capsule 00:00: [place] 00 BY MOUTH Medical DAILY. Branch FREESTYLE 2016 Yes Univers LITE STRIPS 2-25 ity of strip 00:00: [place] 00 Medical Branch FREESTYLE 2016 Yes Univers LITE STRIPS 2-25 ity of strip 00:00: [place] 00 Medical Branch FREESTYLE 2016- Yes Univers LITE STRIPS 2-25 ity of strip 00:00: [place] 00 Medical Branch FREESTYLE 2016 Yes Univers LITE STRIPS 2-25 ity of [...] strip 00:00: [place] 00 Medical Branch FREESTYLE 2015- Yes Univers LITE STRIPS 2-25 ity of strip 00:00: [place] 00 Medical Branch Insulin 2014-09 Yes Use as Univers [place], 2-22 directed, ity of Disposable, 00:00: [place] (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) 31 Branch X 5/16 " Ndle Insulin 2014-09 Yes Use as Univers [place], 2-22 directed, ity of Disposable, 00:00: [place] (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) 31 Branch X 5/16 " Ndle Insulin 2014-09 Yes Use as Univers [place], 2-22 directed, ity of Disposable, 00:[place]: [place] (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) 31 Branch X 5/16 " Ndle Insulin 2014-09 Yes Use as Univers [place], 2-22 directed, ity of Disposable, 00:00: [place], [place] (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) 31 Branch X /16 " Ndle Insulin 2014-09 Yes Use as Univers [place], 2-22 directed, ity of Disposable, 00:00: [place], [place] (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) 31 Branch X 5/16 " Ndle Insulin 2014-09 Yes Use as Univers [place], 2-22 directed, ity of Disposable, 00:00: [place] (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) 31 Branch X 5/16 " Ndle Insulin 2014-09 Yes Use as Univers [place], 2-22 directed, ity of Disposable, 00:00: [place] (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) 31 Branch X 5/16 " Ndle Insulin 2014-09 Yes Use as Univers [place], 2-22 directed, ity of Disposable, 00:00: [place] (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) 31 Branch X 5/16 " Ndle Insulin 2014-09 Yes Use as Univers [place], 2-22 directed, ity of Disposable, 00:00: [place] (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) 31 Branch X 5/16 " Ndle Insulin 2014-09 Yes Use as Univers [place], 2-22 directed, ity of Disposable, 00:00: [place] (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) 31 Branch X 516 " Ndle Insulin 2014-09 Yes Use as Univers [place], 2-22 directed, ity of Disposable, 00:00: [place] (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) 31 Branch X 5/16 " Ndle Insulin 2014-09 Yes Use as Univers [place], 2-22 directed, ity of Disposable, 00:00: [place] (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) [address] [place] [address] X 16 " Ndle Insulin 2014-09 Yes Use as Univers [place], 2-22 directed, ity of Disposable, 00:00: [place] (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) [address] [place] [address] X 02/05 " Ndle Insulin 2014-09 Yes Use as Univers [place], 2-22 directed, ity of Disposable, 00:00: [place] (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) [address] [place] [address] X 02/05 " Ndle Insulin 2014-09 Yes Use as Univers [place], 2-22 directed, ity of Disposable, 00:00: [place] (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) Branch X 02/05 " Ndle Insulin 2014-09 Yes Use as Univers [place], 2-22 directed, ity of Disposable, 00:00: [place] (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) Branch X 16 " Ndle Insulin 2014-09 Yes Use as Univers [place], 2-22 directed, ity of Disposable, 00:00: [place] (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) [address] [place] [address] X 16 " Ndle Januvia Januvia Yes Michael as [facility] [...] [facility] Linzess Jns Yes Michael not [facility] Levothyroxi Levothyroxi Yes Michael (Prior [facility] ne Sodium ne Sodium [facility] Auth: Rx [facility] - Ref#:[id number] [facility] [id number]) l Out[facility] ent Clinics Flomax Flomax Yes Michael [address] [facility] 30 minutes [facility] - after the [facility] same meal l each day Outpati ent Clinics Immunizations Ordered Filled Immunization Date Status Comments [facility] e Immunization Name Name Influenza Virus 2020-07-02 Completed Universit y of Vaccine 00:00:00 [facility] Influenza Virus 2020-07-02 Completed Universit y of Vaccine 00:00:00 [facility] Influenza Virus 2020-07-02 Completed Universit y of Vaccine 00:00:00 [facility] Influenza Virus 2020-07-02 Completed Universit y of Vaccine 00:00:00 [facility] Influenza Virus 2020-07-02 Completed Universit y of Vaccine 00:00:00 [facility] Influenza Virus 2020-07-02 Completed Universit y of Vaccine 00:00:00 [facility] Influenza Virus 2020-07-02 Completed Universit y of Vaccine 00:00:00 [facility] Influenza Virus 2020-07-02 Completed Universit y of Vaccine 00:00:00 [facility] Influenza Virus 2020-07-02 Completed Universit y of Vaccine 00:00:00 [facility] Influenza Virus 2020-07-02 Completed Universit y of Vaccine 00:00:00 [facility] Influenza Virus 2020-07-02 Completed Universit y of Vaccine 00:00:00 [facility] Influenza Virus 2020-07-02 Completed Universit y of Vaccine 00:00:00 [facility] TDAP 2019-08-12 Completed University of 00:00:00 [facility] TDAP 2019-08-12 Completed University of 00:00:00 [facility] TDAP 2019-08-12 Completed University of 00:00:00 [facility] TDAP 2019-08-12 Completed University of 00:00:00 [facility] TDAP 2019-08-12 Completed University of 00:00:00 [facility] TDAP 2019-08-12 Completed University of 00:00:00 [facility] TDAP 2019-08-12 Completed University of 00:00:00 [facility] Branch TDAP 2019-08-12 Completed University of 00:00:00 [facility] Branch TDAP 2019-08-12 Completed University of 00:00:00 [facility] TDAP 2019-08-12 Completed University of 00:00:00 [facility] TDAP 2019-08-12 Completed University of 00:00:00 [facility] TDAP 2019-08-12 Completed University of 00:00:00 [facility] Influenza High Dose 2019-07-12 Completed Unive rsity of 00:00:00 [facility] Influenza High Dose 2019-07-12 Completed Unive rsity of 00:00:00 [facility] Influenza High Dose 2019-07-12 Completed Unive rsity of 00:00:00 [facility] Influenza High Dose 2019-07-12 Completed Unive rsity of 00:00:00 [facility] Influenza High Dose 2019-07-12 Completed Unive rsity of 00:00:00 [facility] Influenza High Dose 2019-07-12 Completed Unive rsity of 00:00:00 [facility] Influenza High Dose 2019-07-12 Completed Unive rsity of 00:00:00 [facility] Influenza High Dose 2019-07-12 Completed Unive rsity of 00:00:00 [facility] Influenza High Dose 2019-07-12 Completed Unive rsity of 00:00:00 [facility] Influenza High Dose 2019-07-12 Completed Unive rsity of 00:00:00 [facility] Influenza High Dose 2019-07-12 Completed Unive rsity of 00:00:00 [facility] Influenza High Dose 2019-07-12 Completed Unive rsity of 00:00:00 [facility] Influenza High Dose 2019-07-12 Completed Unive rsity of 00:00:00 [facility] Influenza High Dose 2019-07-12 Completed Unive rsity of 00:00:00 [facility] Influenza High Dose 2019-07-12 Completed Unive rsity of 00:00:00 [facility] Influenza High Dose 2019-07-12 Completed Unive rsity of 00:00:00 [facility] Influenza High Dose 2019-07-12 Completed Unive rsity of 00:00:00 [facility] Zoster Vaccine 2018-12-30 Completed University of Recombinant 00:00:00 [facility] Zoster Vaccine 2018-12-30 Completed University of Recombinant 00:00:00 [facility] Zoster Vaccine 2018-12-30 Completed University of Recombinant 00:00:00 [facility] Zoster Vaccine 2018-12-30 Completed University of Recombinant 00:00:00 [facility] Zoster Vaccine 2018-12-30 Completed University of Recombinant 00:00:00 [facility] Zoster Vaccine 2018-12-30 Completed University of Recombinant 00:00:00 [facility] Zoster Vaccine 2018-12-30 Completed University of Recombinant 00:00:00 [facility] Zoster Vaccine 2018-12-30 Completed University of Recombinant 00:00:00 [facility] Zoster Vaccine 2018-12-30 Completed University of Recombinant 00:00:00 [facility] Zoster Vaccine 2018-12-30 Completed University of Recombinant 00:00:00 [facility] Zoster Vaccine 2018-12-30 Completed University of Recombinant 00:00:00 [facility] Zoster Vaccine 2018-12-30 Completed University of Recombinant 00:00:00 [facility] Zoster Vaccine 2018-09-18 Completed University of Recombinant 00:00:00 [facility] Zoster Vaccine 2018-09-18 Completed University of Recombinant 00:00:00 [facility] Zoster Vaccine 2018-09-18 Completed University of Recombinant 00:00:00 [facility] Zoster Vaccine 2018-09-18 Completed University of Recombinant 00:00:00 [facility] Zoster Vaccine 2018-09-18 Completed University of Recombinant 00:00:00 [facility] Zoster Vaccine 2018-09-18 Completed University of Recombinant 00:00:00 [facility] Zoster Vaccine 2018-09-18 Completed University of Recombinant 00:00:00 [facility] Zoster Vaccine 2018-09-18 Completed University of Recombinant 00:00:00 [facility] Zoster Vaccine 2018-09-18 Completed University of Recombinant 00:00:00 [facility] Zoster Vaccine 2018-09-18 Completed University of Recombinant 00:00:00 [facility] Zoster Vaccine 2018-09-18 Completed University of Recombinant 00:00:00 [facility] Zoster Vaccine 2018-09-18 Completed University of Recombinant 00:00:00 [facility] Pneumococcal 13 2018-07-27 Completed Universit y of Conjugate, PCV13 00:00:00 [facility] (Prevnar 13) Branch Pneumococcal 13 2018-07-27 Completed [...] 00:00:00 [place] Me [facility]ical (Prevnar 13) Branch Vital Signs Vital Name Observation Time Observation Value Comments Source Systolic blood 2020-09-13 20:39:00 130 mm[Hg] Univer sity of pressure [place] [facility] Diastolic blood 2020-09-13 20:39:00 60 mm[Hg] Unive rsity of pressure [place] [facility] Heart rate 2020-09-13 20:39:00 71 /min Universi ty of [place] [facility] Respiratory rate 2020-09-13 20:39:00 20 /min Univ ersity of [place] [facility] Body weight 2020-09-13 20:39:00 107.049 kg Universi ty of [place] [facility] BMI 2020-09-13 20:39:00 36.96 kg/m2 Universi ty of [place] [facility] Oxygen saturation in 2020-09-13 20:39:00 91 /min University of Arterial blood by [facility] [place] Pulse oximetry Branch Systolic blood 2020-09-13 20:39:00 130 mm[Hg] Univer sity of pressure [place] [facility] Diastolic blood 2020-09-13 20:39:00 60 mm[Hg] Unive rsity of pressure [place] [facility] Heart rate 2020-09-13 20:39:00 71 /min Universi ty of [place] [facility] Respiratory rate 2020-09-13 20:39:00 20 /min Univ ersity of [place] [facility] Body weight 2020-09-13 20:39:00 107.049 kg Universi ty of [place] [facility] BMI 2020-09-13 20:39:00 36.96 kg/m2 Universi ty of [place] [facility] Oxygen saturation in 2020-09-13 20:39:00 91 /min University of Arterial blood by [facility] [place] Pulse oximetry Branch Procedures Procedure Date / Time Performed Performing Clinician [facility] e EXTERNAL PROVIDER - 2021-08-22 06:01:00 Doctor Unassigned, No Un iversity of [facility] CARDIOLOGY Name Medical Branch EXTERNAL PROVIDER 2021-06-20 05:01:00 Doctor Unassigned, No Univ ersity of [place] RECORDS Name Medical Branch EXTERNAL PROVIDER 2021-05-23 05:01:00 Doctor Unassigned, No Univ ersity of [place] RECORDS Name Medical Branch EXTERNAL PROVIDER - 2020-09-21 06:01:00 Doctor Unassigned, No Un [facility] [place] ADC CARDIOLOGY Name Medical Branch CONSENT/REFUSAL FOR 2020-09-13 20:18:19 Doctor Unassigned, No [facility] [place] DIAGNOSIS AND Name Medical Branch TREATMENT MEDICAL 2020-08-10 06:01:00 Doctor Unassigned, No Univer [facility]ity of [place] RELEASE/CLEARANCE Name Medical Branch FORMS SCANNED LAB RESULTS 2019-11-02 06:01:00 [facility] Encounters Start End Encounter Admission Attending Care Care Encounter Source Date/Time Date/Time Type Type Clinicians Facility Department ID 2021-10-18 Outpatient RODRICK Mckenzie [facility] [id number] [facility] [address] 12:19:46 [place] [id number] [facility] 2021-10-18 Outpatient RODRICK Mckenzie [facility] [id number] 11:53:33 Jose[place] [id number] [facility] 2021-10-20 2021-10-20 Telephone [facility] [id number] Univers 00:00:00 00:00:00 Riley ELY [id number] ity [id number] PROF[place] [phone] [place] dic[address] 2021-09-19 2021-09-19 Outpatient R ICRILO, [facility] [id number] Univers 13:20:00 13:20:00 RILEY [id number] ity o f [facility] 2021-09-19 2021-09-19 Outpatient R CIRILO, [facility] [id number] Univers 13:20:00 13:20:00 RILEY ity o f [facility] 2021-08-22 2021-08-22 Telephone [facility] [id number] Univers 00:00:00 00:00:00 Riley ELY [id number] ity [id number] PROFESS[place] [phone] Ok dical NAL 9 [facility] 2021-08-22 2021-08-22 Orders Doctor CRYSTAL [id number] Univers 00:00:00 00:00:00 Only Unassigned, NIK [id number] ity of [place] [facility] [id number] [place] [phone] [address] 2021-06-20 2021-06-20 Orders Doctor MARAH [id number] Univers 00:00:00 00:00:00 Only Unassigned, NIK [id number] ity of [place] [facility] [id number] [place] as [phone] [address] 2021-05-23 2021-05-23 Orders Doctor MARAH [id number] Univers 00:00:00 00:00:00 Only Unassigned, NIK [id number] ity of [place] [facility] [id number] [place] as [phone] [address] 2021-03-30 2021-03-30 Refill [facility] [id number] Univers 00:00:00 00:00:00 Riley [place] [id number] [id number] Profess[place] [phone] [address] 2020-10-20 2020-10-20 Telephone [facility] [id number] [facility] 00:00:00 00:00:00 Riley [place] [id number] [place] [id number] Profess[place] [phone] Ok dicut nal [address] [place] [address] 2020-09-21 2020-09-21 Orders Doctor CRYSTAL [id number] Univers 00:00:00 00:00:00 Only Unassigned, NIK [id number] ity of [place] [facility] [id number] [place] as [phone] [address] 2020-09-13 2020-09-13 Office [facility] [id number] Univers 14:18:45 15:01:50 Visit Riley [place] [id number] [id number] Profess[place] [phone] [address] 2020-09-13 2020-09-13 Office [facility] [id number] 14:18:45 15:01:50 Visit Riley [place] [id number] [place] [id number] Professio [phone] [address] 2020-09-13 2020-09-13 Outpatient R [facility] [id number] Univers 14:20:00 14:20:00 RILEY [id number] ity o f [facility] 2020-09-13 2020-09-13 Outpatient R [facility] [id number] Univers 14:20:00 14:20:00 LOWELLRUYMILY camejo o f [facility] 2020-09-13 2020-09-13 Orders Doctor MARAH [id number] Univers 00:00:00 00:00:00 Only Unassigned, NIK [id number] [facility] of [facility] [id number] [place] as [phone] [address] 2020-08-11 2020-08-11 Telephone [facility] [id number] Univers 00:00:00 00:00:00 [place] [id number] [id number] [phone] [address] 2020-08-10 2020-08-10 Orders Doctor MARAH [id number] [employer] 00:00:00 00:00:00 Only Unassigned, NIK [id number] [facility] [id number] [place] as [phone] [address] 2019-11-02 2019-11-02 Orders Doctor MARAH [id number] [employer] 00:00:00 00:00:00 Only Unassigned, NIK [id number] [facility] [id number] [place] as [phone] [address] 2019-06-16 2019-06-16 Outpatient C [facility] [id number] [address] 15:18:00 23:59:00 ANTHONY [facility] 2018-04-30 2018-04-30 Outpatient Brazsundar Godfreyt [id number] [facility] St 13:30:00 13:30:00 [facility] Clinics Results Test Description Test Time Test Comments Results Result [facility] e Comments NM LUNG (V/Q ) 2019-06-16 Radionuclide SCAN 16:46:52 ventilation/perfusion lung scanLocation Code: [id number]: Shortness of breathCOMPARISON: NoneCOMMENT: Routine images of [...] Test Item Value Reference Range Interpretation Comme [facility] POC-GLUCOSE METER (ISHAAN) (test 157 mg/dL 70-110 H TESTED AT [facility] 5860 code = 1538) [facility] [id number]
--- NOTE | 2021-10-29 16:23 | RAD REPORT ---
EXAM DESCRIPTION: RAD - Chest Single View - 10/29/2021 4:16 pm CLINICAL HISTORY: SOB Chest pain. COMPARISON: Chest Single View dated 09/21/2021; Chest Single View dated 09/18/2021; Chest Single Vie w dated 09/17/2021; Chest Single View dated 09/07/2021 FINDINGS: Portable technique limits examination quality. Mild to moderate pulmonary edema is present. The heart is mildly prominent in size. No displaced frac tures. IMPRESSION: Mild to moderate CHF.
[2021-10-29] MEDS ORDERED: CEFEPIME 1 GM/VIAL ONE (17:12)
[2021-10-29 17:18] LABS: Protime INR 1.29
[2021-10-29 17:26] LABS: Absolute Lymphocytes (CBC) 0.7 K/uL (0.7-4.9); Hematocrit 32.2 % (39.6-49.0); Lymphocytes % 8.7 % (15.3-44.8); MPV 7.3 fL (7.6-11.3); RBC Red Blood Cell Count 3.67 M/uL (4.33-5.43)
[2021-10-29] MEDS ORDERED: NA CHLORIDE 0.9% 100 ML IV ONE (17:27)
[2021-10-29 18:12] LABS: Bilirubin Direct 0.2 mg/dL (0-0.2); Bilirubin Total 0.5 mg/dL (0.2-1.0); Potassium 3.6 mmol/L (3.5-5.1); Protein, Total 8.5 g/dL (6.4-8.2); Troponin High Sensitivity 21.1 pg/mL (<58.9)
[2021-10-29] MEDS ORDERED: FUROSEMIDE 100 MG/10 ML VIAL IV ONE (18:24)
[2021-10-29] MEDS ORDERED: VANCOMYCIN 1 GM/VIAL ONE (18:24)
[2021-10-29] MEDS ORDERED: NA CHLORIDE 0.9% 250 ML ONE ×2 (18:25→23:41)
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
[2021-10-29] MEDS ORDERED: FUROSEMIDE 40 MG/4 ML VIAL IV SCH (20:05)
[2021-10-29] MEDS: SPIRONOLACTONE 25 MG TABLET PO SCH (20:06)
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
[2021-10-29 20:35] LABS: Urine Blood Trace-intact (Negative); Urine Glucose Negative (Negative); Urine Protein Negative (Negative); Urine Specific Gravity 1.015 (1.005-1.030)
[2021-10-29] MEDS ORDERED: FUROSEMIDE IV SCH (21:00)
[2021-10-29] MEDS ORDERED: NA CHLORIDE 0.9% IV SCH (21:00)
--- NOTE | 2021-10-29 21:59 | RAD REPORT ---
EXAM DESCRIPTION: US - Abdomen Pelvis Scan US - 10/29/2021 9:26 pm CLINICAL HISTORY: Ascites COMPARISON: No comparisons FINDINGS: Four quadrant abdominal ultrasound was performed to evaluate for ascites. No significant a scites identified. IMPRESSION: No significant ascites seen.
[2021-10-29] MEDS ORDERED: ONDANSETRON 4 MG/2 ML VIAL IV PRN (22:57)
[2021-10-29] MEDS: INSULIN -REGULAR HUMAN 50 UNIT/0.5 ML ML SQ SCH (22:57)
[2021-10-29] MEDS ORDERED: VANCOMYCIN 1 GM in NA CHLORIDE 0.9% 250 ML IVPB ONE (23:00)
[2021-10-29 23:10] LABS: Magnesium 2.4
[2021-10-29] MEDS ORDERED: HYDROCODONE/APAP 5/325 MG TAB PO PRN (23:35)
[2021-10-29] MEDS ORDERED: TRAMADOL HCL 50 MG TAB PO PRN (23:35)
[2021-10-30] MEDS: TAMSULOSIN 0.4 MG SR CAP PO SCH ×2 (00:01→20:45)
[2021-10-30] MEDS: HEPARIN 5000 UNIT/ML 1 ML VIAL SQ SCH ×3 (00:01→20:46)
[2021-10-30] MEDS: SPIRONOLACTONE 25 MG TABLET PO SCH ×3 (00:01→20:42)
[2021-10-30] MEDS: ATORVASTATIN 40 MG TAB PO SCH ×2 (00:01→20:42)
[2021-10-30 03:41] VITALS: BMI 38.3
[2021-10-30] MEDS: PANTOPRAZOLE 40MG TABLET PO SCH (05:54)
[2021-10-30] MEDS: LEVOTHYROXINE SOD 0.05 MG TABLET PO SCH (05:55)
[2021-10-30 06:26] LABS: Absolute Lymphocytes (CBC) 0.5 K/uL (0.7-4.9); MPV 7.1 fL (7.6-11.3); RBC Red Blood Cell Count 3.66 M/uL (4.33-5.43)
[2021-10-30 06:53] LABS: Albumin 2.6 g/dL (3.4-5.0); Bilirubin Total 0.5 mg/dL (0.2-1.0); Potassium 3.3 mmol/L (3.5-5.1); Protein, Total 7.8 g/dL (6.4-8.2)
[2021-10-30 06:55] LABS: Thyroid Stimulating Hormone 18.7 uIU/mL (0.360-3.740)
[2021-10-30 07:17] LABS: UR PROTEIN 35.8 mg/dL (<11.9); Urine Protein/Creatinine Ratio 0.59 ratio (<0.15)
[2021-10-30] MEDS: INSULIN -REGULAR HUMAN 50 UNIT/0.5 ML ML SQ SCH ×4 (07:30→21:00)
[2021-10-30] MEDS ORDERED: D50W 25 GM/50 ML SYRINGE IV ONE (07:43)
[2021-10-30 08:07] LABS: Urine Appearance CLOUDY (Clear); Urine Color YELLOW (Yellow)
[2021-10-30 08:08] LABS: Urine Bilirubin NEGATIVE (Negative); Urine Blood 3+ (Negative); Urine Glucose NEGATIVE (Negative); Urine Protein TRACE (Negative); Urine Specific Gravity 1.015 (1.005-1.030); Urine Urobilinogen 0.2 mg/dL (0.2-1.0)
[2021-10-30 08:10] LABS: Urine Bacteria 20-50 /HPF (NONE SEEN); Urine RBC >50 /HPF (NONE SEEN)
[2021-10-30] MEDS: AMIODARONE HCL 200 MG TAB PO SCH (09:00)
[2021-10-30] MEDS: allopurinoL 100 MG TAB PO SCH (09:00)
[2021-10-30] MEDS ORDERED: NA CHLORIDE 0.9% 1,000 ML ONE (10:23)
[2021-10-30] MEDS ORDERED: ALBUTEROL 2.5 MG/3 ML NEB SOL ONE (10:37)
[2021-10-30] MEDS: CEFEPIME 1 GM in NA CHLORIDE 0.9% 100 ML IV SCH (10:46)
--- NOTE | 2021-10-30 11:32 | EKG ---
Test Date: 2021-10-29 Test Time: 16:05:57 Medical Record Transcriber: BENITO MEASUREMENT RESULTS: Intervals: Rate: 69 NE: QRSD: 102 QT: 480 QTc: 514 [place]: P: NE: QRS: 111 T: -68 INTERPRETIVE STATEMENTS: Atrial fibrillation Left posterior fascicular block Nonspecific ST and T wave abnormality, probably digitalis effect Prolonged QT Abnormal ECG Compared to ECG 09/17/2021 13:00:51 Left posterior fascicular block now present ST (T wave) deviation now present Prolonged QT interval now present Right-axis deviation no longer present Electronically Signed On 10-30-21 11:30:28 [facility]RECTIONAL FACILITY NURSE by Shaquille Gagnon
[2021-10-30] MEDS ORDERED: FENTANYL CITR 100 MCG/2 ML ONE (12:09)
[2021-10-30] MEDS ORDERED: ONDANSETRON 4 MG/2 ML VIAL ONE (12:09)
[2021-10-30] MEDS ORDERED: MIDAZOLAM HCL 2 MG/2 ML INJ ONE (12:09)
[2021-10-30] MEDS ORDERED: LIDOCAINE 2% MPF 5 ML VIAL ONE (12:09)
[2021-10-30] MEDS ORDERED: propofoL 200 MG/20 ML VIAL IV ONE (12:09)
[2021-10-30] MEDS ORDERED: ROCURONIUM 50 MG/5 ML VIAL IV ONE (12:17)
[2021-10-30] MEDS ORDERED: SUCCINYLCHOLINE 20 MG/ML (10 ML) IV ONE (12:18)
[2021-10-30] MEDS ORDERED: EPHEDRINE SULF 50 MG/ML VIAL ONE (12:27)
[2021-10-30] MEDS ORDERED: SILVER SULFADIAZINE 1% 25 GM TOP ONE (12:33)
[2021-10-30] MEDS: HYDROMORPHONE HCL 1 MG/ML INJ ONE ×2 (13:03→13:15)
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
[2021-10-30 14:26] LABS: Magnesium 2.3
[2021-10-30] MEDS: CODEINE 30MG/APAP 300MG TAB PO PRN ×2 (17:15→20:43)
[2021-10-30] MEDS: NYSTATIN PWDR 100000 UNIT/GM TOP SCH (21:00)
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
[2021-10-31] MEDS: CODEINE 30MG/APAP 300MG TAB PO PRN ×3 (04:30→17:06)
[2021-10-31 05:39] LABS: Absolute Lymphocytes (CBC) 0.5 K/uL (0.7-4.9); Hematocrit 29.2 % (39.6-49.0); Lymphocytes % 8.9 % (15.3-44.8); MPV 6.8 fL (7.6-11.3); RBC Red Blood Cell Count 3.28 M/uL (4.33-5.43)
[2021-10-31] MEDS: LEVOTHYROXINE SOD 0.05 MG TABLET PO SCH (05:42)
[2021-10-31] MEDS: PANTOPRAZOLE 40MG TABLET PO SCH (05:42)
[2021-10-31 06:02] LABS: Albumin 2.4 g/dL (3.4-5.0); Bilirubin Total 0.5 mg/dL (0.2-1.0); Potassium 3.7 mmol/L (3.5-5.1); Protein, Total 7.5 g/dL (6.4-8.2)
[2021-10-31] MEDS: INSULIN -REGULAR HUMAN 50 UNIT/0.5 ML ML SQ SCH ×4 (07:30→21:00)
--- NOTE | 2021-10-31 09:48 | RAD REPORT ---
EXAM DESCRIPTION: USExtrem Venous W Compress Bil10/31/2021 9:08 am CLINICAL HISTORY: Leg swelling COMPARISON: 2019 FINDINGS: The common femoral, superficial femoral, popliteal and posterior tibial veins bilaterally are compressible and demonstrate augmentation. Doppler demonstrates good flow. IMPRESSION: No evidence of deep venous thrombosis involving either lower extremity.
--- NOTE | 2021-10-31 09:54 | RAD REPORT ---
EXAM DESCRIPTION: US - Upper Lower Extrem [facility] - 10/31/2021 9:28 am CLINICAL HISTORY: Leg pain COMPARISON: None FINDINGS: An accurate right ankle-brachial index could not be obtained Left ankle-brachial index 1 The right common femoral and proximal right superficial femoral arterial waveform is triphasic. Remainder of the right superficial femoral and right popliteal arterial waveform is biphasic No flow right posterior tibial artery. Right dorsalis pedis artery monophasic Left common femoral and left superficial femoral arterial waveforms triphasic. Left popliteal arteria l waveform triphasic Left posterior tibial and left dorsalis pedis arterial waveform is monophasic Grayscale, color and spectral analysis performed on all vessels IMPRESSION: Arteries of the proximal and mid lower extremities bilaterally do not demonstrate a sign ificant abnormality Occlusion of the next right posterior tibial artery Moderate disease involving the remainder of the distal arteries of the lower extremity bilaterally
[2021-10-31] MEDS: NYSTATIN PWDR 100000 UNIT/GM TOP SCH ×2 (10:14→21:00)
[2021-10-31] MEDS: CEFEPIME 1 GM in NA CHLORIDE 0.9% 100 ML IV SCH (10:14)
[2021-10-31] MEDS: SPIRONOLACTONE 25 MG TABLET PO SCH ×2 (10:15→20:59)
[2021-10-31] MEDS: AMIODARONE HCL 200 MG TAB PO SCH (10:16)
[2021-10-31] MEDS: allopurinoL 100 MG TAB PO SCH (10:16)
[2021-10-31] MEDS: HEPARIN 5000 UNIT/ML 1 ML VIAL SQ SCH ×2 (10:16→21:01)
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
[2021-10-31 12:22] LABS: Magnesium 2.3
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
[2021-10-31] MEDS ORDERED: VANCOMYCIN 2 GM in NA CHLORIDE 0.9% 500 ML IV SCH ×5 (18:00→23:00)
[2021-10-31] MEDS: VANCOMYCIN 2 GM in NA CHLORIDE 0.9% 500 ML IV SCH (18:23)
[2021-10-31] MEDS: ATORVASTATIN 40 MG TAB PO SCH (20:59)
[2021-10-31] MEDS: TAMSULOSIN 0.4 MG SR CAP PO SCH (21:00)
[2021-11-01 05:54] LABS: Absolute Lymphocytes (CBC) 0.5 K/uL (0.7-4.9); Albumin 2.5 g/dL (3.4-5.0); Bilirubin Total 0.4 mg/dL (0.2-1.0); Hematocrit 30.9 % (39.6-49.0); MPV 7.2 fL (7.6-11.3); Potassium 3.7 mmol/L (3.5-5.1); Protein, Total 7.7 g/dL (6.4-8.2); RBC Red Blood Cell Count 3.44 M/uL (4.33-5.43)
[2021-11-01] MEDS: LEVOTHYROXINE SOD 0.075 MG TAB PO SCH (06:00)
[2021-11-01] MEDS: PANTOPRAZOLE 40MG TABLET PO SCH (06:00)
[2021-11-01] MEDS: NYSTATIN PWDR 100000 UNIT/GM TOP SCH ×2 (09:00→21:00)
[2021-11-01] MEDS: INSULIN -REGULAR HUMAN 50 UNIT/0.5 ML ML SQ SCH ×4 (09:10→21:36)
[2021-11-01] MEDS: AMIODARONE HCL 200 MG TAB PO SCH (09:10)
[2021-11-01] MEDS: CEFEPIME 1 GM in NA CHLORIDE 0.9% 100 ML IV SCH (09:10)
[2021-11-01] MEDS: HEPARIN 5000 UNIT/ML 1 ML VIAL SQ SCH ×2 (09:10→21:31)
[2021-11-01] MEDS: allopurinoL 100 MG TAB PO SCH (09:10)
[2021-11-01] MEDS: SPIRONOLACTONE 25 MG TABLET PO SCH ×2 (09:11→21:31)
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
[2021-11-01 12:33] LABS: Magnesium 2.4
--- NOTE | 2021-11-01 12:37 | RAD REPORT ---
EXAM DESCRIPTION: RAD - Chest Single View - 11/01/2021 12:26 pm CLINICAL HISTORY: COPD COMPARISON: Chest Single View dated 10/29/2021; Chest Single View dated 09/21/2021; Chest Single View dated 09/18/2021; Chest Single View dated 09/17/2021; Abdomen Pelvis Wo Contrast dated 01/26/2018 FINDINGS: Lines: None. Lungs: Widespread prominence of the pulmonary interstitium. Some of these findings are likely chronic . Pleural: No significant pleural effusions or pneumothorax. Cardiac: Cardiomegaly. Bones: No acute fractures. Degenerative changes in the shoulders. Other: IMPRESSION: Interstitial edema/congestive heart failure similar to 10/29/2021.
[2021-11-01] MEDS: BUMETANIDE 1 MG/4 ML VIAL IV SCH ×2 (12:48→21:00)
--- NOTE | 2021-11-01 15:04 | DS ---
The patient's hands continued to improve. He is on Silvadene dressing changes b.i.d. We will plan t o continue this. No further surgery planned. He is feeling better. His legs are unchanged. JOANN/SUSHANT Voice ID: [id number] Report ID: [id number]
[2021-11-01] MEDS: CODEINE 30MG/APAP 300MG TAB PO PRN (21:32)
[2021-11-01] MEDS: ATORVASTATIN 40 MG TAB PO SCH (21:32)
[2021-11-01] MEDS: TAMSULOSIN 0.4 MG SR CAP PO SCH (21:32)
[2021-11-02] MEDS: VANCOMYCIN 2 GM in NA CHLORIDE 0.9% 500 ML IV SCH (06:00)
[2021-11-02 06:01] LABS: Absolute Lymphocytes (CBC) 0.6 K/uL (0.7-4.9); Hematocrit 30.2 % (39.6-49.0); Lymphocytes % 8.8 % (15.3-44.8); MPV 6.8 fL (7.6-11.3); RBC Red Blood Cell Count 3.39 M/uL (4.33-5.43)
[2021-11-02 06:12] LABS: Albumin 2.3 g/dL (3.4-5.0); Bilirubin Total 0.5 mg/dL (0.2-1.0); Potassium 3.9 mmol/L (3.5-5.1); Protein, Total 7.3 g/dL (6.4-8.2)
[2021-11-02] MEDS: LEVOTHYROXINE SOD 0.075 MG TAB PO SCH (06:30)
[2021-11-02] MEDS: PANTOPRAZOLE 40MG TABLET PO SCH (06:30)
[2021-11-02] MEDS: INSULIN -REGULAR HUMAN 50 UNIT/0.5 ML ML SQ SCH ×4 (07:30→21:00)
[2021-11-02] MEDS: HEPARIN 5000 UNIT/ML 1 ML VIAL SQ SCH ×2 (08:37→21:00)
[2021-11-02] MEDS: AMIODARONE HCL 200 MG TAB PO SCH (08:38)
[2021-11-02] MEDS: CEFEPIME 1 GM in NA CHLORIDE 0.9% 100 ML IV SCH (08:39)
[2021-11-02] MEDS: allopurinoL 100 MG TAB PO SCH (08:40)
[2021-11-02] MEDS: SPIRONOLACTONE 25 MG TABLET PO SCH ×2 (08:40→21:27)
[2021-11-02] MEDS: BUMETANIDE 1 MG/4 ML VIAL IV SCH ×2 (08:46→21:00)
[2021-11-02] MEDS: NYSTATIN PWDR 100000 UNIT/GM TOP SCH ×2 (09:00→21:00)
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
--- NOTE | 2021-11-02 11:01 | PN ---
Date of Progress Note: 11/02/2021 Subjective: The patient was admitted with acute kidney injury, cellulitis, the patient has acute kidney injury secondary to cardiorenal. The patient was started on aggressive diuresis. Kidney function has been improved. Swelling has been subsided. Physical Examination: Vital Signs: Blood pressure 102/48, pulse of 72, afebrile. The patient had good urine output of 3500, negative of 2800. As weight hitchcock reported. Chest: Crackles bilateral base. Heart: S1, S2. Systolic murmur. Abdomen: Soft, nontender. Extremity: Dressing on the right arm and dressing on both lower extremities. Edema has been resolved. Chronic venous stasis changes bilateral. Laboratory Data: WBC 6.4, H and H 9.5/30.2. Sodium 133, potassium 3.9, bicarb 32, BUN 89 and trending down, creatinine 2.7 and continued to trend down, GFR of 22, calcium 8.2. Albumin 2.3, corrected calcium is 9.6. Wound culture growing MRSA. Current Medications: The patient on include; 1. Cefepime. 2. Vancomycin. 3. Flomax. 4. Amiodarone. 5. Atorvastatin. 6. Spironolactone. 7. Bumex 2 mg b.i.d. 8. Levothyroxine. 9. Allopurinol. Assessment And Plan: 1. Acute kidney injury on chronic kidney disease secondary to cardiorenal. Currently started to be in normal volume. I am going to continue on Bumex twice a day and we will continue to monitor. 2. Anasarca, multifactorial, secondary to cardiorenal/renal failure, complicated with hypothyroidism. I am going to continue on Bumex, spironolactone, and I will increase levothyroxine to 88 mcg, and we will continue to follow up the patient. 3. Hypertension. Continue to utilize the blood pressure to establish better volume control. 4. Cellulitis, methicillin-resistant Staphylococcus aureus. Discussed with Dr. Barriga on the option of treatment. The patient will need vancomycin for 2 weeks. Discussed about option of LTAC. We will follow up. 5. Obstructive uropathy. Continue Flomax. 6. Congestive heart failure as above. 7. Hyponatremia, dilutional. Continue diuresis. We will follow up. 8. Hyperkalemia, status post treatment, resolved. Time spent examining the patient [id number] discussing the case with the patient explain the treatment plan reviewing the data including laboratory. And radiology placing order discussing the case with the steam powerplant supervisor including nursing staff and charge nurse discussing the case with all her subspecialty including hospitalist 35-minute SHARON Voice ID: [id number] Report ID: [id number] ANN
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
[2021-11-02] MEDS ORDERED: ALBUMIN HUMAN 25% 50 ML IV ONE (17:00)
[2021-11-02 17:22] LABS: Magnesium 2.3
[2021-11-02] MEDS: ATORVASTATIN 40 MG TAB PO SCH (21:00)
[2021-11-02] MEDS: TAMSULOSIN 0.4 MG SR CAP PO SCH (21:27)
[2021-11-03] MEDS ORDERED: NA CHLORIDE 0.9% 1,000 ML ONE (02:14)
[2021-11-03] MEDS: PANTOPRAZOLE 40MG TABLET PO SCH (05:46)
[2021-11-03] MEDS ORDERED: LEVOTHYROXINE SOD 0.088 MG TAB PO SCH (06:30)
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
[2021-11-03] MEDS: INSULIN -REGULAR HUMAN 50 UNIT/0.5 ML ML SQ SCH ×3 (07:30→16:55)
[2021-11-03] MEDS: AMIODARONE HCL 200 MG TAB PO SCH (08:41)
[2021-11-03] MEDS: SPIRONOLACTONE 25 MG TABLET PO SCH (08:41)
[2021-11-03] MEDS: allopurinoL 100 MG TAB PO SCH (08:41)
[2021-11-03] MEDS: HEPARIN 5000 UNIT/ML 1 ML VIAL SQ SCH (08:42)
[2021-11-03] MEDS: BUMETANIDE 1 MG/4 ML VIAL IV SCH (08:43)
[2021-11-03] MEDS: NYSTATIN PWDR 100000 UNIT/GM TOP SCH (08:44)
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
--- NOTE | 2021-11-03 11:34 | DS ---
The patient's wound is unchanged. It is not epithelializing. We are going to try normal saline and wet-to-dry. He may need skin graft. JOANN/SUSHANT Voice ID: [id number] Report ID: [id number]
[2021-11-03 14:51] VITALS: O2SAT 94
[2021-11-03 20:36] VITALS: BP 127/65; TEMP 98
[2021-11-04] MEDS ORDERED: VANCOMYCIN 2 GM in NA CHLORIDE 0.9% 500 ML IV SCH (06:00)
== END 2021-11-03 17:50 | disposition home health service (06) | DRG 935 ==
LOC: ER 15:02 → ERHOLD 20:03 → 2ND 20:28
PROVIDERS: ADMIT Hospitalist; ATTEND Hospitalist
PROC: 0JDJ3ZZ Extraction of Right Hand Subcutaneous Tissue and Fascia, Percutaneous Approach (ICD-10-PCS; principal; 2021-10-30 11:00)
DX: T23.202A Burn of second degree of left hand, unspecified site, initial encounter (principal); L89.893 Pressure ulcer of other site, stage 3; I50.33 Acute on chronic diastolic (congestive) heart failure; I13.0 Hypertensive heart and chronic kidney disease with heart failure and stage 1 through stage 4 chronic kidney disease, or unspecified chronic kidney disease; L03.113 Cellulitis of right upper limb; L03.116 Cellulitis of left lower limb; L03.115 Cellulitis of right lower limb; N17.9 Acute kidney failure, unspecified; N18.4 Chronic kidney disease, stage 4 (severe); I48.20 Chronic atrial fibrillation, unspecified; Z68.41 Body mass index [BMI] 40.0-44.9, adult; I87.333 Chronic venous hypertension (idiopathic) with ulcer and inflammation of bilateral lower extremity; L97.929 Non-pressure chronic ulcer of unspecified part of left lower leg with unspecified severity; L97.919 Non-pressure chronic ulcer of unspecified part of right lower leg with unspecified severity; E87.1 Hypo-osmolality and hyponatremia; E66.01 Morbid (severe) obesity due to excess calories; E11.22 Type 2 diabetes mellitus with diabetic chronic kidney disease; N13.9 Obstructive and reflux uropathy, unspecified; E78.5 Hyperlipidemia, unspecified; K21.9 Gastro-esophageal reflux disease without esophagitis; E87.5 Hyperkalemia; I87.2 Venous insufficiency (chronic) (peripheral); I27.20 Pulmonary hypertension, unspecified; N40.0 Benign prostatic hyperplasia without lower urinary tract symptoms; E03.9 Hypothyroidism, unspecified; B95.62 Methicillin resistant Staphylococcus aureus infection as the cause of diseases classified elsewhere; X11.8XXA Contact with other hot tap-water, initial encounter; Z79.4 Long term (current) use of insulin; Z79.890 Hormone replacement therapy; Z79.899 Other long term (current) drug therapy; Z86.14 Personal history of Methicillin resistant Staphylococcus aureus infection; Z20.822 Contact with and (suspected) exposure to COVID-19
CPT/HCPCS: 36415; 51702; 71045; 80048; 80053; 80061; 80076; 80202; 81001; 81003; 82550; 82570; 82947; 83605; 83735; 83880; 83935; 84132; 84145; 84156; 84300; 84439; 84443; 84484; 85025; 85610; 87040; 87070; 87077; 87086; 87088; 87186; 87205; 93005; 93923; 93970; 93975; 96365; 96366; 96375; 97161; 97530; 99251; 99285; J0330; J0692; J1170; J1644; J2250; J2405; J2704; J3010; J3370; J7030; J7040; J7050; P9047; U0003

== ENCOUNTER 2021-11-19 12:40 | Inpatient (IN) | payer OTHER ==
--- OUTSIDE RECORDS SUMMARY | 2021-11-19 12:44 | XMS REPORT | Continuity of Care Document ---
:1935 Author Organization [facility] t Address [address] [place] [address] Care Team Providers Name Role Phone Pcp, Does Not Have A Primary Care Physician Jonah Attending Clinician Unavailable Juan RASHID Attending Clinician Rebecca RASHID Attending Clinician REBECCA Attending Clinician Unavailable SIMÓN Attending Clinician Unavailable Tim IYER Attending Clinician Unavailable Rebecca RASHID Admitting Clinician REBECCA Admitting Clinician Unavailable SIMÓN Admitting Clinician Unavailable Tim IYER Admitting Clinician Unavailable Payers Payer Name Policy Type Policy Number Effective Date Expiration Date S ource Problems Condition Condition Condition Status Onset Resolution Last Treating Co mments Source Name Details Category Date Date Treatment Clinician Date BECKMAN BECKMAN Disease Active 2018-09 Univers (dyspnea (dyspnea 0-17 ity of on on 00:00: [place] exertion) exertion) 00 [facility] Acute on Acute on Disease Active 2018-09 Unive rs chronic chronic 0-17 [place] 00 [place] (congestiv (congestiv Br anch e heart e heart failure), failure), NYHA class NYHA class 3 3 Longstandi Longstandi Disease Active 2018- U nivers ng ng 0-17 [place] atrial atrial 00 [place] fibrillati fibrillati Br anch on on Essential Essential Disease Active 2018-09 Uni vers hypertensi hypertensi 0-17 it y of on on 00:00: [address] Branch RAHEL RAHEL Disease Active 2018-09 Univers (obstructi (obstructi 0-17 it y of ve sleep ve sleep 00:00: [place] apnea) apnea) 00 Medical Branch CHF CHF Disease Active 2018-09 Univers (congestiv (congestiv 0-16 it y of e heart e heart 00:00: [place] failure) failure) 00 Medica l Branch Elevated Elevated Disease Active Unive rs TSH TSH 8-16 ity of 00:00: [place] 00 Medical Branch Type 2 Type 2 Disease Active Univers diabetes diabetes 5-10 ity of mellitus mellitus 00:00: [place] with stage with stage 00 Me dical [...] deficiency deficiency 3-16 it y of 00:00: [place] 00 Medical Branch HLD HLD Disease Active Univers (hyperlipi (hyperlipi 3-16 it y of demia) demia) 00:00: [place] Medical Branch 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 00:00: [place] with with 00 Medical neuropathy neuropathy Br anch OTIS (acute OTIS (acute Disease Active 2014-09 U babitaers kidney kidney 2-16 ity of injury) injury) 00:00: [place] 00 Medical Branch Neuropathy Neuropathy Disease Active 2014-09 U nivers 2-16 ity of 00:00: [place] 00 Medical Branch Pain, Pain, Diagnosis Active [...] 2-16 issue ity of Iodide adverse 00:00: [place] Containi reaction 00 Medica l ng s Branch Products IODINE Drug Active Other-Cmnt 2014-09 Univer s AND Class 2-16 ity of IODIDE 00:00: [place] CONTAINI 00 Medical Branch PRODUCTS Social History Social Habit Start Date Stop Date Quantity Comments Source Alcohol intake 2020-09-13 2020-09-13 0 /d [facility] 00:00:00 00:00:00 Medical Branch Sex Ass[birth year] At [birth year] [facility] 00:00:00 00:00:00 Medical Branch Smoking Status Start Date Stop Date Source Former smoker 2020-09-13 00:00:00 2020-09-13 00:00:00 [facility] Medical Branch Medications Ordered Filled Start Stop Current Ordering Indication Dosage Frequency Signature Comments Components Source Medication Medication Date Date Medication? Clinician (SIG) Name Name amiodarone Yes 200mg Take 1 Univ ers 200 mg 2-07 tablet by ity of tablet 00:00: mouth [place] 00 daily. Medical Branch amiodarone 2021- No 200mg Take 1 Uni vers 200 mg 7- tablet by ity of tablet 00:00: 00:00 mouth [place] 00 :00 daily. Medical Branch furosemide 2019-09 Yes 100mg Take 100 Un debby (LASIX) 80 2-22 mg by ity of mg tablet 14:45: mouth [place] 04 daily. Medical Branch metOLazone 2019-09 Yes 10mg Take 10 mg U nivers 10 mg 2-22 by mouth ity of tablet 14:45: daily. Medical Branch POTASSIUM 2019-09 Yes 2 (two) Unive rs CHLORIDE, 2-22 times ity of BULK, MISC 14:45: daily. Medical Branch furosemide 2019-09 Yes 100mg Take 100 Un deb[place] (LASIX) 80 2-22 mg by ity of mg tablet 14:45: mouth [place] 04 daily. Medical Branch metOLazone 2019-09 Yes 10mg Take 10 mg U nivers 10 mg 2-22 by mouth ity of tablet 14:45: daily. Medical Branch POTASSIUM 2019-09 Yes 2 (two) Unive rs CHLORIDE, 2-22 times ity of BULK, MISC 14:45: daily. Medical Branch levothyroxi 2019-09 Yes Take by Un debby ne 50 mcg 2-22 mouth ity of tablet 14:41: daily. [address] levothyroxi 2019- Yes Take by Un debby ne 50 mcg 2-22 mouth ity of tablet 14:41: daily. [address] carvedilol 2019- Yes 25mg Take 25 mg U nivers (COREG) 25 2-22 by mouth 2 ity of mg tablet 14:41: (two) [place] 30 times Medical daily with Branch meals. carvedilol 2019- Yes 25mg Take 25 mg U nivers (COREG) 25 2-22 by mouth 2 ity of mg tablet 14:41: (two) [place] 30 times Medical daily with Branch meals. spironolact 2020-0 Yes Univer s one 25 mg 6-01 ity of tablet 00:00: [place] [address] Medical Branch spironolact 2020-0 Yes Univer s one 25 mg 6-01 ity of tablet 00:00: [place] [address] Medical Branch GABAPENTIN 2019-1 Yes [id number] TAKE 1 U nivers 300 mg 2-19 CAPSULE AT ity of capsule 00:00: BEDTIME [place] [address] Medical Branch GABAPENTIN 2019-1 Yes [id number] TAKE 1 U nivers 300 mg 2-19 CAPSULE AT ity of capsule 00:00: BEDTIME [place] [address] Medical Branch ethacrynic 2019-1 Yes [id number] 50mg Take 2 Univers acid 25 mg 2-03 02 tablets by ity of tablet 00:00: mouth [place] 00 every Medical morning Branch and evening. ethacrynic 2019-1 Yes [id number] 50mg Take 2 Univers acid 25 mg 2-03 02 tablets by ity of tablet 00:00: mouth [place] 00 every Medical morning Branch and evening. tamsulosin 2019-0 Yes .4mg Take 1 Unive [...] tablet 6-25 TABLET ity of 00:00: DAILY [place] [address] Medical Branch JANUVIA 50 2019-0 Yes TAKE 1 Unive rs mg tablet 6-25 TABLET ity of 00:00: DAILY [place] [address] Medical Branch Insulin 2018-1 Yes [id number] 20U inject 20 U nivers Glargine 1-06 Units ity of (LANTUS 00:00: under the [place] SOLOSTLA 00 skin Medical U-100 daily. Branch INSULIN) 100 unit/mL (3 mL) injection insulin 2017-09 Yes [id number] 10U inject 10 U nivers aspart 1-06 Units ity of U-100 00:00: under the [place] (NOVOLOG 00 skin 2 Medical FLEXPEN (two) Branch U-100 times INSULIN) daily 100 unit/mL before injection breakfast and dinner. Insulin 2017-09 Yes [id number] 20U inject 20 U nivers Glargine 1-06 Units ity of (LANTUS 00:00: under the [place] [facility] 00 skin Medical U-100 daily. Branch INSULIN) 100 unit/mL (3 mL) injection insulin 2017-09 Yes [id number] 10U inject 10 U nivers aspart 1-06 Units ity of U-100 00:00: under the [place] (NOVOLOG 00 skin 2 Medical FLEXPEN (two) Branch U-100 times INSULIN) daily 100 unit/mL before injection breakfast and dinner. HydrALAZINE HydrALAZINE Yes Michael [address] [facility] HCl HCl 8-08 [place] with food [facility] ATORVASTATI Yes [id number] TAKE 1 Univers N 40 mg 6-15 TABLET AT ity of tablet 00:00: BEDTIME [place] [address] Medical Branch ATORVASTATI Yes [id number] TAKE 1 Univers N 40 mg 6-15 TABLET AT ity of tablet 00:00: BEDTIME [address] Branch omeprazole Yes TAKE ONE Uni vers 20 mg 9-23 (1) ity of capsule 00:00: [place] 00 BY MOUTH Medical DAILY. Branch omeprazole Yes TAKE ONE Uni vers 20 mg 9-23 (1) ity of capsule 00:00: [place] 00 BY MOUTH Medical DAILY. Branch FREESTYLE 2015-09 Yes Univers LITE STRIPS 2-25 ity of strip 00:00: [place] Medical Branch FREESTYLE 2015-09 Yes Univers LITE STRIPS 2-25 ity of strip 00:00: [address] Insulin 2014-09 Yes Use as Univers [place], 2-22 directed, ity of Disposable, 00:00: TID, [place] (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) 31 Branch X 5/16 " Ndle Insulin 2014- Yes Use as Univers [place], 2-22 directed, ity of Disposable, 00:00: TID, [place] (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) 31 Branch X 5/16 " Ndle Januvia [place] Yes Michael as [facility] directed [...] ne Sodium [place] Auth: Rx [facility] - Ref#:[id number] [facility] [id number]) l Outpati ent Clinics Flomax Flomax Yes Michael [address] [facility] 30 minutes [facility] - after the [facility] same meal l each day Outpati ent Clinics Immunizations Ordered Filled Immunization Date Status Comments [facility] e Immunization Name Name Influenza Virus 2020-07-02 Completed Universit y of Vaccine 00:00:00 [facility] Influenza Virus 2020-07-02 Completed Universit y of Vaccine 00:00:00 [facility] TDAP 2019-08-12 Completed University of 00:00:00 [facility] TDAP 2019-08-12 Completed University of 00:00:00 [facility] Influenza High Dose 2019-07-12 Completed Unive rsity of 00:00:00 [facility] Influenza High Dose 2019-07-12 Completed Unive rsity of 00:00:00 [facility] Zoster Vaccine 2018-12-30 Completed University of Recombinant 00:00:00 [facility] Zoster Vaccine 2018-12-30 Completed University of Recombinant 00:00:00 [facility] Zoster Vaccine 2018-09-18 Completed University of Recombinant 00:00:00 [facility] Zoster Vaccine 2018-09-18 Completed University of Recombinant 00:00:00 [facility] Pneumococcal 13 2018-07-27 Completed Universit y of Conjugate, PCV13 00:00:00 [facility] dical (Prevnar 13) [place] Pneumococcal 13 2018-07-27 Completed Universit y of Conjugate, PCV13 00:00:00 [facility] dical (Prevnar 13) [place] Procedures This patient has no known procedures. Encounters Start End Encounter Admission Attending Care Care Encounter Source Date/Time Date/Time Type Type Clinicians Facility Department ID 2021-10-18 Outpatient Jonah [facility] [id number] 12:19:46 [place] [address] [facility]ryl [facility] 2021-10-18 Outpatient Jonah [facility] [id number] 11:53:33 [place] [id number] [facility] 2021-10-30 2021-10-30 Refill Juan VARICO [id number] Univers 00:00:00 00:00:00 Riley ELY [id number] ity [facility] [id number] PROFESS[place] [id number] Ma dical NAL 059 [facility] 2021-10-29 2021-10-29 [facility] MARY Veloz [id number] Univers 19:55:00 23:59:00 Encounter Kobi ZARAGOZA [id number] ity [facility] [id number] [place] [phone] [address] 2021-10-29 2021-10-29 Outpatient NIKKI VELOZ SBU [id number] Univers 00:00:00 23:59:00 KOBI camejo [facility] 2020-09-13 2020-09-13 Office Juan VARICO [id number] 14:18:45 15:01:50 Visit Riley Ely [id number] [place] [id number] [id number] 059 [facility] 2019-06-16 2019-06-16 Outpatient Gayatri GR [facility] RAD [id number] [place] 15:18:00 23:59:00 ANTHONY [facility] 2018-04-30 2018-04-30 Outpatient Bekah Vera [id number] 13:30:00 13:30:00 [facility] Clinics Results Test Description Test Time Test Comments Results Result [facility] e Comments NM LUNG (V/Q ) 2019-06-16 Radionuclide SCAN 16:46:52 ventilation/perfusion lung scanLocation Code: [id number]: Shortness of breathCOMPARISON: NoneCOMMENT: Routine images of [...] (test 157 mg/dL 70-110 H TESTED AT [facility] 7200 code = 1538) [facility] [id number]
[2021-11-19] MEDS ORDERED: FUROSEMIDE 20 MG/ 2ML VIAL ONE (13:21)
[2021-11-19 13:28] LABS: Absolute Lymphocytes (CBC) 0.5 K/uL (0.7-4.9); Hematocrit 32.9 % (39.6-49.0); Lymphocytes % 9.4 % (15.3-44.8); MPV 7.4 fL (7.6-11.3); Protime INR 1.2; RBC Red Blood Cell Count 3.69 M/uL (4.33-5.43)
[2021-11-19 13:43] LABS: Albumin 2.8 g/dL (3.4-5.0); Bilirubin Direct 0.1 mg/dL (0-0.2); Bilirubin Total 0.3 mg/dL (0.2-1.0); Magnesium 2.6 mg/dL (1.8-2.4); Potassium 5.3 mmol/L (3.5-5.1); Protein, Total 8.5 g/dL (6.4-8.2); Troponin High Sensitivity 19.2 pg/mL (<58.9)
--- NOTE | 2021-11-19 14:29 | RAD REPORT ---
EXAM DESCRIPTION: RAD - Chest Single View - 11/19/2021 1:58 pm CLINICAL HISTORY: CONGESTION COMPARISON: Chest Single View dated 11/01/2021; Chest Single View dated 10/29/2021; Chest Single View da daysi 09/21/2021; Chest Single View dated 09/18/2021 FINDINGS: Lines: None. Lungs: Increased bilateral interstitial airspace disease. Pleural: No significant pleural effusions or pneumothorax. Cardiac: The heart size is within normal limits. Bones: No acute fractures. Other: IMPRESSION: Worsening aeration of the lungs which likely reflects increasing edema. Pneumonia less l ikely.
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
--- NOTE | 2021-11-19 16:22 | EDPHYS ---
Physician Documentation [facility] Name: Jimmy Soto Age: 86 yrs Sex: Male : 1935 Arrival Date: 11/19/2021 Time: 12:41 Bed 14 Private MD: ED Physician Jovanni Zarate HPI: 11/19 12:58 This 86 yrs old Male presents to ER via Wheelchair with complaints of Fluid overload. jmm 12:58 Onset: The symptoms/episode began/occurred gradually, 1 day(s) ago. jmm 12:58 Duration: The symptoms are continuous. The patient's shortness of breath is aggravated jmm by nothing, is alleviated by nothing. The patient has experienced similar episodes in the past. This is an 86 with a history of cellulitis, CHF: diabetes, hlp, htn, leg that presents to the ED with complaints of shortness of breath and swelling to the abdomen and the legs. Was recently admitted for similar episode. . Historical: - Allergies: 12:58 No Known Allergies; ll1 - PMHx: 12:58 Cellulitis; CHF; Diabetes - IDDM; Hyperlipidemia; Hypertension; leg swelling/sores; ll1 Pneumonia; - PSHx: 12:58 hip SX; ll1 ROS: 12:58 Constitutional: Negative for fever, chills, and weight loss, Cardiovascular: Negative jmm for chest pain, palpitations, and edema. 12:58 Respiratory: Positive for shortness of breath. 12:58 Abdomen/GI: Positive for abdominal distension. 12:58 MS/extremity: Positive for swelling. 12:58 All other systems are negative. Exam: 12:58 Head/Face: atraumatic. Eyes: EOMI, no conjunctival erythema appreciated ENT: Moist jmm Mucus Membranes Neck: Trachea midline, Supple Chest/axilla: Normal chest wall appearance and motion. Cardiovascular: Regular rate and rhythm. No edema appreciated 12:58 Constitutional: The patient appears alert, awake, uncomfortable. 12:58 Respiratory: mild respiratory distress is noted, Respirations: Breath sounds: rales, that are mild, are heard diffusely. 12:58 Abdomen/GI: Inspection: distension, that is moderate, Bowel sounds: normal, Palpation: abdomen is soft and non-tender, in all quadrants. 12:58 Musculoskeletal/extremity: ROM: intact in all extremities, edema noted to the legs bilaterally. 12:58 Skin: Appearance: Color: normal in color. 12:58 Neuro: Orientation: is normal, Mentation: is normal, Memory: is normal. Vital Signs: 13:01 Pulse Ox 86% on R/A; ab2 13:02 BP 124 / 71; Pulse 77; Resp 19; Temp 98.1; Pulse Ox 89% ; cs9 13:03 Pulse Ox 94% on 2 lpm NC; ab2 13:05 Weight 116.12 kg; Height 5 ft. 7 in. (170.18 cm); Pain 0/10; ll1 13:56 BP 147 / 62; Pulse 60; Resp 18; Pulse Ox 96% on 2 lpm NC; ab2 15:00 BP 138 / 65; Pulse 65; Resp 16; Pulse Ox 96% on 2 lpm NC; ab2 16:00 BP 137 / 55; Pulse 66; Resp 18; Pulse Ox 97% on 2 lpm NC; ab2 17:00 BP 132 / 63; Pulse 59; Resp 18; Pulse Ox 96% on 2 lpm NC; ab2 17:48 BP 138 / 71; Pulse 61; Resp 18; Pulse Ox 96% on 2 lpm NC; Pain 0/10; ab2 13:05 Body Mass Index 40.09 (116.12 kg, 170.18 cm) ll1 MDM: 13:13 Patient medically screened. [facility] 16:19 Data reviewed: vital signs, nurses notes. Counseling: I had a detailed discussion with [facility] the patient and/or guardian regarding: the historical points, exam findings, and any diagnostic results supporting the discharge/admit diagnosis, lab results, radiology results, the need for further work-up and treatment in the hospital. ED course: I discussed the patient with Dr. Barriga whom accepted the patient to his service. Requests observation. . 11/19 12:58 Order name: Basic Metabolic Panel; Complete Time: 14:11/19 12:58 Order name: CBC with Diff; Complete Time: 13:30 11/19 12:58 Order name: LFT's; Complete Time: 14:11/19 12:58 Order name: Magnesium; Complete Time: 14:11/19 12:58 Order name: NT PRO-BNP; Complete Time: 14:11/19 12:58 Order name: PT-INR; Complete Time: 13:30 [facility] 11/19 12:58 Order name: Troponin HS; Complete Time: 14:01 [facility] 11/19 12:58 Order name: XRAY Chest (1 view); Complete Time: 14:31 11/19 15:44 Order name: COVID-19 SARS RT PCR (Document "Date of Onset" if Symptomatic) ab2 11/19 17:32 Order name: CBC with Automated Diff EDMS 11/19 17:32 Order name: Comprehensive Metabolic Panel EDAL 11/19 17:32 Order name: Comprehensive Metabolic Panel EDAL 11/19 17:32 Order name: CBC with Automated Diff EDAL 11/19 12:58 Order name: EKG; Complete Time: 12:59 [facility] 11/19 12:58 Order name: Cardiac monitoring; Complete Time: 13:12 [facility] 11/19 12:58 Order name: EKG - Nurse/Tech; Complete Time: 13:12 [facility] 11/19 12:58 Order name: IV Saline Lock; Complete Time: 13:12 [facility] 11/19 12:58 Order name: Labs collected and sent; Complete Time: 13:12 [facility] 11/19 12:58 Order name: O2 Per Protocol; Complete Time: 13:12 [facility] 11/19 12:58 Order name: O2 Sat Monitoring; Complete Time: 13:12 [facility] 11/19 13:14 Order name: Pickett; Complete Time: 13:36 [facility] 11/19 17:32 Order name: CONS Physician Consult [facility] 11/19 17:32 Order name: NPO EDAL Administered Medications: 13:37 Drug: Lasix (furosemide) 40 mg Route: IVP; Site: right forearm; ab2 17:31 Follow up: Response: No adverse reaction ab2 Disposition: 11/20 09:40 Co-signature as Attending Physician, Jovanni Zarate MD I agree with the assessment and [facility] plan of care. Disposition Summary: 11/19/21 16:22 Hospitalization Ordered Hospitalization Status: Observation [facility] Provider: Pablo Barriga Location: Telemetry/MedSurg (observation) [facility] Condition: Stable [facility] Problem: new [facility] Symptoms: are unchanged [facility] Bed/Room Type: Standard [facility] Room Assignment: 429(11/19/21 17:36) Diagnosis - Acute on chronic congestive heart failure [facility] Forms: - Medication Reconciliation Form [facility] - SBAR form [facility] Signatures: Dispatcher [employer] May Huffman RN RN Ru Melendez PA PA jmm Smirch, Shelby, RN RN ss Terrence Gallo RN RN ll1 Mainor Howard Jose, MD MD [id number] Corrections: (The following items were deleted from the chart) 11/19 17:36 16:22 [facility] 17:36 17:[address] [place] [address]
[2021-11-19] MEDS ORDERED: MORPHINE 4 MG/ML SYR IV PRN (17:29)
[2021-11-19] MEDS ORDERED: ACETAMINOPHEN 500 MG TAB PO PRN (17:29)
[2021-11-19] MEDS ORDERED: ONDANSETRON 4 MG/2 ML VIAL IV PRN (17:29)
[2021-11-19] MEDS ORDERED: BUMETANIDE 1 MG/4 ML VIAL IV ONE (17:49)
[2021-11-19] MEDS ORDERED: ALBUMIN HUMAN 25% 50 ML IV ONE (17:49)
[2021-11-19 18:21] VITALS: BMI 39.9
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
[2021-11-19] MEDS: INSULIN GLARGINE 100 UNIT/ML SQ SCH (23:30)
[2021-11-20 04:19] LABS: Absolute Lymphocytes (CBC) 0.6 K/uL (0.7-4.9); Hematocrit 29.6 % (39.6-49.0); Lymphocytes % 12.9 % (15.3-44.8); MPV 7.5 fL (7.6-11.3); RBC Red Blood Cell Count 3.31 M/uL (4.33-5.43)
[2021-11-20 04:33] LABS: Albumin 2.6 g/dL (3.4-5.0); Bilirubin Total 0.5 mg/dL (0.2-1.0); Potassium 4.7 mmol/L (3.5-5.1); Protein, Total 7.6 g/dL (6.4-8.2)
[2021-11-20] MEDS ORDERED: BUMETANIDE 1 MG/4 ML VIAL IV SCH (06:00)
[2021-11-20] MEDS: LEVOTHYROXINE SOD 0.1 MG TAB PO SCH (06:00)
[2021-11-20] MEDS ORDERED: D50W 25 GM/50 ML SYRINGE IV ONE (07:27)
[2021-11-20] MEDS: SPIRONOLACTONE 25 MG TABLET PO SCH ×2 (07:55→21:00)
[2021-11-20] MEDS: allopurinoL 100 MG TAB PO SCH (07:55)
[2021-11-20] MEDS: hydrOXYzine HCL 25 MG TAB PO SCH ×3 (07:55→21:37)
[2021-11-20] MEDS: PANTOPRAZOLE 40MG TABLET PO SCH (07:56)
[2021-11-20] MEDS: TAMSULOSIN 0.4 MG SR CAP PO SCH ×2 (07:56→21:37)
[2021-11-20] MEDS: AMIODARONE HCL 200 MG TAB PO SCH (07:57)
[2021-11-20] MEDS ORDERED: INSULIN LISPRO 100 UNIT/1 ML SQ SCH (08:00)
[2021-11-20] MEDS ORDERED: METOLAZONE 5 MG TABLET PO SCH (09:00)
[2021-11-20] MEDS ORDERED: GLUCAGON 1 MG/VIAL IM PRN (09:06)
[2021-11-20] MEDS ORDERED: D50W 25 GM/50 ML SYRINGE IV PRN (09:06)
[2021-11-20] MEDS ORDERED: D10W 125 ML IV PRN (09:11)
[2021-11-20] MEDS: INSULIN -REGULAR HUMAN 50 UNIT/0.5 ML ML SQ SCH ×3 (11:30→21:00)
[2021-11-20] MEDS: SILVER SULFADIAZINE 1% 25 GM TOP SCH (13:36)
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
[2021-11-20] MEDS ORDERED: ATORVASTATIN 40 MG TAB PO SCH (21:00)
[2021-11-20] MEDS ORDERED: SOD POLYSTYREN SUL 15 GM/60 ML UCUP PO ONE (21:30)
[2021-11-20] MEDS: BUMETANIDE 1 MG TABLET PO SCH (21:36)
[2021-11-20] MEDS: METOLAZONE 5 MG TABLET PO SCH (21:37)
[2021-11-20] MEDS: INSULIN GLARGINE 100 UNIT/ML SQ SCH (21:37)
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
[2021-11-21 04:35] LABS: Potassium 4.5 mmol/L (3.5-5.1)
[2021-11-21 04:45] LABS: Thyroid Stimulating Hormone 27.4 uIU/mL (0.360-3.740)
[2021-11-21] MEDS: LEVOTHYROXINE SOD 0.1 MG TAB PO SCH (06:30)
[2021-11-21] MEDS: INSULIN -REGULAR HUMAN 50 UNIT/0.5 ML ML SQ SCH ×3 (07:30→16:30)
[2021-11-21] MEDS: PANTOPRAZOLE 40MG TABLET PO SCH (08:11)
[2021-11-21] MEDS: METOLAZONE 5 MG TABLET PO SCH (08:11)
[2021-11-21] MEDS: TAMSULOSIN 0.4 MG SR CAP PO SCH (08:11)
[2021-11-21] MEDS: allopurinoL 100 MG TAB PO SCH (08:11)
[2021-11-21] MEDS: hydrOXYzine HCL 25 MG TAB PO SCH ×2 (08:11→12:59)
[2021-11-21] MEDS: BUMETANIDE 1 MG TABLET PO SCH (08:11)
[2021-11-21] MEDS: AMIODARONE HCL 200 MG TAB PO SCH (08:12)
[2021-11-21] MEDS: SILVER SULFADIAZINE 1% 25 GM TOP SCH (08:15)
[2021-11-21 10:24] VITALS: O2SAT 93
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
[2021-11-21 16:33] VITALS: BP 118/56; TEMP 98.5
--- NOTE | 2021-11-21 17:59 | PN ---
Date of Progress Note: 11/21/2021 Subjective: The patient was admitted with anasarca, over volume. The patient according to him did n ot change on any of his diuresis. Physical Examination: Vital Signs: When I saw the patient; blood pressure 124/58, pulse of 87, afebrile. The patient had good urine output of 2200, negative of 1100. Chest: Decreased entry bilateral base. Heart: S1, S2. Systolic murmur. Abdomen: Soft, nontender. Extremities: +3 edema. Compression dressing on both lower extremities. Neurological: Alert, oriented x3. No focal. Laboratory Data: WBC 4.9, H and H 9.3/29.6. Sodium 133, potassium 4.5, bicarb 31, BUN 39, creatinin e 2.1, GFR of 30, calcium 8.4. TSH is 27. Medications: Home medications include; 1.Insulin. 2.Bumex 1 mg b.i.d. 3.Metolazone. 4.Spironolactone 25 b.i.d. 5.Pantoprazole. 6.Flomax. Current medications in the hospital include; 1.Amiodarone. 2.Bumex 2 mg b.i.d. 3.Metolazone. 4.Pantoprazole. 5.Flomax. Assessment And Plan: 1.Chronic kidney disease stage 3B/4 secondary to cardiorenal on baseline. I am going to continue th e patient on aggressive diuresis as current and we will follow up. 2.Anasarca. We will resume levothyroxine and we will continue diuresis. It is multifactorial secon neela to cardiorenal/hypothyroidism. 3.Urinary retention. Continue Flomax. 4.Hyponatremia secondary to dilutional. We will try to optimize fluid status. 5.Congestive heart failure exacerbation as above. We will try to optimize the fluid status. 6.Gout. Continue allopurinol. SISSY/SUSHANT Voice ID: [id number] Report ID: [id number]
[2021-11-22] MEDS ORDERED: LEVOTHYROXINE SOD 0.125 MG TAB PO SCH (06:30)
[2021-11-22] MEDS ORDERED: LEVOTHYROXINE SOD 0.05 MG TABLET PO SCH (06:30)
== END 2021-11-21 18:35 | disposition home health service (06) | DRG 291 ==
LOC: ER 12:40 → ERHOLD 17:46 → 4TH 17:49 → OBSVTOIN 11-20 18:26
PROVIDERS: ADMIT Hospitalist; ATTEND Hospitalist
DX: I13.0 Hypertensive heart and chronic kidney disease with heart failure and stage 1 through stage 4 chronic kidney disease, or unspecified chronic kidney disease (principal); L89.893 Pressure ulcer of other site, stage 3; I50.33 Acute on chronic diastolic (congestive) heart failure; E87.1 Hypo-osmolality and hyponatremia; I48.20 Chronic atrial fibrillation, unspecified; N18.4 Chronic kidney disease, stage 4 (severe); N17.9 Acute kidney failure, unspecified; E11.22 Type 2 diabetes mellitus with diabetic chronic kidney disease; R33.9 Retention of urine, unspecified; M10.9 Gout, unspecified; N40.0 Benign prostatic hyperplasia without lower urinary tract symptoms; T23.201A Burn of second degree of right hand, unspecified site, initial encounter; E66.01 Morbid (severe) obesity due to excess calories; Z68.39 Body mass index [BMI] 39.0-39.9, adult; G47.33 Obstructive sleep apnea (adult) (pediatric); E87.5 Hyperkalemia; E03.9 Hypothyroidism, unspecified; K21.9 Gastro-esophageal reflux disease without esophagitis; E78.5 Hyperlipidemia, unspecified; R01.1 Cardiac murmur, unspecified; Z99.81 Dependence on supplemental oxygen; Z20.822 Contact with and (suspected) exposure to COVID-19
CPT/HCPCS: 36415; 51702; 71045; 80048; 80053; 80076; 82947; 83735; 83880; 84132; 84439; 84443; 84484; 85025; 85610; 93005; 96374; 99251; 99285; G0378; J1940; P9047; U0003

== ENCOUNTER 2022-05-17 10:52 | Inpatient (IN) | payer OTHER ==
--- OUTSIDE RECORDS SUMMARY | 2022-05-17 10:56 | XMS REPORT | Continuity of Care Document ---
:1935 Author Organization [facility] t Address [address] [place] [address] Care Team Providers Name Role Phone Pcp, Patient Does Not Have A Primary Care Physician [phone] Josemanuel Mckenzie Attending Clinician Unavailable Juan RASHID, Riley Attending Clinician Kobi Veloz MD Attending Clinician KOBI VELOZ Attending Clinician Unavailable ANTHONY GR Attending Clinician Unavailable CLAIRE IYER Attending Clinician Unavailable Kobi Veloz MD Admitting Clinician KOBI VELOZ Admitting Clinician Unavailable ANTHONY GR Admitting Clinician Unavailable CLAIRE IYER Admitting Clinician Unavailable Payers Payer Name Policy Type Policy Number Effective Date Expiration Date S ource Problems Condition Condition Condition Status Onset Resolution Last Treating Co mments Source Name Details Category Date Date Treatment Clinician Date BECKMAN BECKMAN Disease Active 2018-09 Univers (dyspnea (dyspnea 0-17 ity of on on 00:00: [place] exertion) exertion) 00 [facility] ame Branch Acute on Acute on Disease Active 2018-09 [...] it y of on on 00:00: [place] 00 Medical Branch RAHEL RAHEL Disease Active 2018-09 Univers [...] deficiency deficiency 3-16 it y of 00:00: [place] 00 Medical Branch HLD HLD Disease Active Univers (hyperlipi (hyperlipi 3-16 it y of demia) demia) 00:00: [place] 00 Medical Branch 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 00:00: [place] with with 00 Medical neuropathy neuropathy Br anch OTIS (acute OTIS (acute Disease Active 2014-09 U nivers kidney kidney 2-16 ity of injury) injury) 00:00: [place] 00 Medical Branch Neuropathy Neuropathy Disease Active 2014-09 U nivers 2-16 ity of 00:00: [place] 00 Medical Branch Pain, Pain, Diagnosis Active Common joint, joint, Spirit knee, knee, - [facility] right right [facility] Right Right Diagnosis Active Common sided sided Spirit sciatica sciatica - [facility] Allergies, Adverse Reactions, Alerts Allergy Allergy Status Severity Reaction(s) Onset Inactive Treating Comm ents Source Name Type Date Date Clinician Iodine Propensi Active Other - See 2015-1 Kidney Uni vers And ty to comments 2-16 issue ity of Iodide adverse 00:00: [place] Containi reaction 00 Medica l ng s Branch Products IODINE Drug Active Other-Cmnt 2014-09 Univer s AND Class 2-16 ity of IODIDE 00:00: [place] CONTAINI 00 Medical NG Branch PRODUCTS Social History Social Habit Start Date Stop Date Quantity Comments Source Alcohol intake 2020-09-13 2020-09-13 0 /d [facility] 00:00:00 00:00:00 Medical Branch Sex [birth year] [facility] 00:00:00 00:00:00 Medical Branch Smoking Status Start Date Stop Date Source Former smoker 2020-09-13 00:00:00 2020-09-13 00:00:00 [facility] Medical Branch Medications Ordered Filled Start Stop Current Ordering Indication Dosage Frequency Signature Comments Components Source Medication Medication Date Date Medication? Clinician (SIG) Name Name amiodarone Yes 200mg Take 1 Univ ers 200 mg 2-07 tablet by ity of tablet 00:00: mouth [place] 00 daily. Medical Branch amiodarone 2021- No 200mg Take 1 Uni vers 200 mg 7-08 02-07 tablet by ity of tablet 00:00: 00:00 [...] BULK, MISC 14:45: daily. Medical Branch levothyroxi 2019- Yes Take by Uni vers ne 50 mcg 2-22 mouth ity of tablet 14:41: daily. [address] levothyroxi 2019-09 Yes Take by Uni vers ne 50 mcg 2-22 mouth ity of tablet 14:41: daily. [address] carvedilol 2019-09 Yes 25mg Take 25 mg U nivers (COREG) 25 2-22 by mouth 2 ity of mg tablet 14:41: (two) [place] 30 times Medical daily with Branch meals. carvedilol 2019-09 Yes 25mg Take 25 mg U nivers (COREG) 25 2-22 by mouth 2 ity of mg tablet 14:41: (two) [place] 30 times Medical daily with Branch meals. spironolact 2019-0 Yes Univer s one 25 mg 6-01 ity of tablet 00:00: [place] [facility] spironolact 2019-0 Yes Univer s one 25 mg 6-01 ity of tablet 00:00: [place] [facility] Branch GABAPENTIN 2019- Yes [id number] TAKE 1 U nivers 300 mg 2-19 CAPSULE AT ity of capsule 00:00: BEDTIME [place] [facility] Branch GABAPENTIN 2019- Yes [id number] TAKE 1 U nivers 300 mg 2-19 CAPSULE AT ity of capsule 00:00: BEDTIME [place] [facility] Branch ethacrynic 2019-1 Yes [id number] 50mg Take 2 Univers acid 25 mg 2-03 02 tablets by ity of tablet 00:00: mouth [place] every Medical morning Branch and evening. ethacrynic 2019- Yes [id number] 50mg Take 2 Univers acid 25 mg 2-03 02 tablets by ity of tablet 00:00: mouth [place] every Medical morning Branch and evening. tamsulosin 2019-0 Yes .4mg Take 1 Unive rs 0.4 mg 24 7-11 capsule by ity of hr capsule 00:00: mouth [place] 00 daily. [facility] Branch tamsulosin 2019-0 Yes .4mg Take 1 Unive rs 0.4 mg 24 7-11 capsule by ity of hr capsule 00:00: mouth [place] 00 daily. [facility] Branch JANUVIA 50 2018-0 Yes TAKE 1 Unive rs mg tablet 6-25 TABLET ity of 00:00: DAILY [address] JANUVIA 50 2019-0 Yes TAKE 1 Unive rs mg tablet 6-25 TABLET ity of 00:00: DAILY [place] [address] Medical Branch Insulin 2017-09 Yes [id number] 20U inject 20 U nivers Glargine 1-06 Units ity of (LANTUS 00:00: under the [place] SOLOSTPA 00 skin Medical U-100 daily. Branch INSULIN) 100 unit/mL (3 mL) injection insulin 2017-09 Yes [id number] 10U inject 10 U nivers aspart 1-06 Units ity of U-100 00:00: under the [place] (NOVOLOG 00 skin 2 Medical FLEXPEN (two) Branch U-100 times INSULIN) daily 100 unit/mL before injection breakfast and dinner. Insulin 2017-09 Yes [id number] 20U inject 20 U nivers Glargine 1-06 Units ity of (LANTUS 00:00: under the [place] [facility] skin Medical U-100 daily. Branch INSULIN) 100 unit/mL (3 mL) injection insulin 2017-09 Yes [id number] 10U inject 10 U nivers aspart 1-06 Units ity of U-100 00:00: under the [place] (NOVOLOG 00 skin 2 Medical FLEXPEN (two) Branch U-100 times INSULIN) daily 100 unit/mL before injection breakfast and dinner. HydrALAZINE HydrALAZINE Yes Michael 1 tablet Common HCl HCl 8 [place] with food Spirit 00:00: - [address] ATORVASTATI Yes [id number] TAKE 1 Univers N 40 mg 6-15 TABLET AT ity of tablet 00:00: BEDTIME [address] ATORVASTATI Yes [id number] TAKE 1 Univers N 40 mg 6-15 TABLET AT ity of tablet 00:00: BEDTIME [address] omeprazole Yes TAKE ONE Uni vers 20 mg 9-23 (1) ity of capsule 00:00: [place]) [place] 00 BY MOUTH Medical DAILY. Branch omeprazole Yes TAKE ONE Uni vers 20 mg 9-23 (1) ity of capsule 00:00: [place]) [place] 00 BY MOUTH Medical DAILY. Branch FREESTYLE 2015-09 Yes Univers LITE STRIPS 2-25 ity of strip 00:00: [place] [address] Medical Branch FREESTYLE 2015-09 Yes Univers LITE STRIPS 2-25 ity of strip 00:00: [place] 00 Medical Branch Insulin 2014-09 Yes Use as Univers [place], 2-22 directed, ity of Disposable, 00:00: TID, [place] (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) 31 Branch X 5/16 " Ndle Insulin 2014-09 Yes Use as Univers [place], 2-22 directed, ity of Disposable, 00:00: TID, [place] (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) 31 Branch X 5/16 " Ndle Januvia Januvia Yes Michael as Common [place] directed [facility] NovoLog NovoLog Yes Michael as Common [place] directed [facility] Gabapentin Gabapentin Yes Michael [address] [facility] Tramadol Tramadol Yes Michael (Schedule Common HCl HCl [place] IV Drug) Spirit TAKE ONE - [facility] (1) TO TWO St (2) [facility] TABLET(S) Medical BY MOUTH Center THREE TIMES A DAY NEEDED. Coreg Coreg Yes Michael as Common [place] directed [facility] Lantus Lantus Yes Michael as Common [place] directed [facility] lasix lasix Yes Michael [address] [facility] Linzess Linzess Yes Michael not Common [place] defined [facility] Levothyroxi Levothyroxi Yes Michael (Prior Common ne Sodium ne Sodium [place] Auth: Rx Spirit Ref#:[id number] - [facility] [id number]) [facility] Flomax Flomax Yes Michael 1 capsule Comm on [place] 30 minutes Spirit after the - [facility] same meal St each day [facility] Immunizations Ordered Filled Immunization Date Status Comments [facility] e Immunization Name Name Influenza Virus 2020-07-02 Completed Universit y of Vaccine 00:00:00 [facility] Influenza Virus 2020-07-02 Completed Universit y of Vaccine 00:00:00 [facility] TDAP 2019-08-12 Completed University of 00:00:00 [facility] TDAP 2019-08-12 Completed University of 00:00:00 [facility] Influenza High Dose 2019-07-12 Completed Unive rsity of 00:00:00 [facility] Influenza High Dose 2019-07-12 Completed Unive rsity of 00:00:00 [facility] Zoster Vaccine 2018-12-30 Completed University of Recombinant 00:00:00 [facility] Zoster Vaccine 2018-12-30 Completed University of Recombinant 00:00:00 [facility] Zoster Vaccine 2018-09-18 Completed University of Recombinant 00:00:00 [facility] Zoster Vaccine 2018-09-18 Completed University of Recombinant 00:00:00 [facility] Pneumococcal 13 2018-07-27 Completed Universit y of Conjugate, PCV13 00:00:00 [facility] dical (Prevnar 13) Branch Pneumococcal 13 2018-07-27 Completed Universit y of Conjugate, PCV13 00:00:00 [facility] dical (Prevnar 13) [place] Procedures This patient has no known procedures. Encounters Start End Encounter Admission Attending Care Care Encounter Source Date/Time Date/Time Type Type Clinicians Facility Department ID 2021-10-18 Outpatient Jonah [facility] [id number] Common 12:19:[id number] [facility] 2021-10-18 Outpatient Jonah [facility] [id number] Common 11:53:[id number] [facility] 2021-10-30 2021-10-30 [facility] [id number] Univers 00:00:00 00:00:00 Riley ELY [id number] [facility] [id number] [place] PROF[place] [id number] Ne dical NAL 059 [facility] 2021-10-29 2021-10-29 [facility] MARY Veloz [id number] Univers 19:55:00 23:59:00 Encounter Kobi [facility]AG[id number] [facility] [id number] [place] [id number] [address] 2021-10-29 2021-10-29 Outpatient REBECCA ALRICO SBU [id number] Univers 00:00:00 23:59:00 KOBI camejo [facility] 2020-09-13 2020-09-13 Office Juan ALRICO [id number] 14:18:45 15:01:50 Visit Riley Ely [id number] [place] [id number] 059 Building 2019-06-16 2019-06-16 Outpatient Gayatri GR [facility] [id number] [place] 15:18:00 23:59:00 ANTHONY [facility] 2018-04-30 2018-04-30 Outpatient Bekah Godfreyt [id number] Common 13:30:00 13:30:00 [facility] - [facility] Results Test Description Test Time Test Comments Results Result [facility] e Comments NM LUNG (V/Q ) 2019-06-16 Radionuclide SCAN 16:46:52 ventilation/perfusion lung scanLocation Code: [id number]: Shortness of breathCOMPARISON: NoneCOMMENT: Routine images of [...] (test 157 mg/dL 70-110 H TESTED AT [facility] 3990 code = 1538) [facility] [id number]
[2022-05-17 11:40] LABS: SARS-CoV-2 Antigen Rapid Res Negative (Negative)
[2022-05-17] MEDS ORDERED: ONDANSETRON 4 MG/2 ML VIAL IV PRN (13:29)
[2022-05-17] MEDS ORDERED: ACETAMINOPHEN 500 MG TAB PO PRN (13:29)
[2022-05-17] MEDS ORDERED: ALPRAZOLAM 0.25 MG TABLET PO PRN (13:29)
[2022-05-17] MEDS ORDERED: NA CHLORIDE 0.9% 1,000 ML IV SCH (14:00)
[2022-05-17 14:37] LABS: Absolute Lymphocytes (CBC) 0.9 K/uL (0.7-4.9); Hematocrit 31.2 % (39.6-49.0); Lymphocytes % 14.6 % (15.3-44.8); MCV 88.6 fL (80-100); MPV 6.8 fL (7.6-11.3); RBC Red Blood Cell Count 3.52 M/uL (4.33-5.43)
[2022-05-17 14:42] LABS: Protime INR 1.15
[2022-05-17] MEDS: ALBUMIN HUMAN 25% 12.5 GM, FUROSEMIDE 100 MG in NA CHLORIDE 0.9% 40 ML IV SCH (15:00)
[2022-05-17 15:03] LABS: Bilirubin Total 0.3 mg/dL (0.2-1.0); Potassium 4.4 mmol/L (3.5-5.1); Protein, Total 8.1 g/dL (6.4-8.2)
[2022-05-17 15:06] LABS: Thyroid Stimulating Hormone 18.5 uIU/mL (0.360-3.740)
[2022-05-17] MEDS ORDERED: D10W 250 ML BAG IV PRN (15:27)
--- NOTE | 2022-05-17 17:01 | RAD REPORT ---
EXAM DESCRIPTION: US - Abdomen Exam Complete - 05/17/2022 4:39 pm CLINICAL HISTORY: Acute renal insufficiency COMPARISON: 2020 FINDINGS: The liver has a normal echotexture. Multiple gallstones. The gallbladder wall is not thickened. The biliary tree is normal caliber. The pancreas is normal in size and echotexture The right kidney measures 9 centimeters with a normal echotexture. The left kidney measures 9 centimeters with a normal echotexture. The spleen measures 9 centimeters. Limited evaluation of pancreas, abdominal aorta and IVC secondary to overlying bowel gas IMPRESSION: Cholelithiasis without evidence of cholecystitis
--- NOTE | 2022-05-17 17:01 | RAD REPORT ---
EXAM DESCRIPTION: US - Abdomen Exam Limited - 05/17/2022 4:39 pm CLINICAL HISTORY: Ascites FINDINGS: Ascites is not visualized. IMPRESSION: Ascites is not seen
--- NOTE | 2022-05-17 17:44 | ER ---
Nurse's Notes [facility] Name: Jimmy Soto Age: 86 yrs Sex: Male : 1935 Arrival Date: 05/17/2022 Time: 10:56 Bed Direct Admit Private MD: Cesar Mckenzie B; Ruby Kincaid Diagnosis: Chronic kidney disease, unspecified Vital Signs: 05/17 12:44 BP 141 / 79; Pulse 51; Resp 17; Pulse Ox 100% on R/A; tw2 ED Course: :56 Patient arrived in ED. as 10:57 Cesar Mckenzie MD is Private Physician. as 10:57 Ruby Kincaid MD is Private Physician. as 11:08 Michel Tatum DO is Attending Physician. ms3 15:11 Inserted saline lock: 20 gauge in left antecubital area, using aseptic technique. jw7 17:42 Ruby Kincaid MD is Hospitalizing Provider. iw 18:03 Ruby Kincaid MD is Attending Physician. ap3 Administered Medications: No medications were administered Outcome: 17:42 Decision to Hospitalize by Provider. iw 18:03 Patient left the ED. ap3 Signatures: Marichuy Portillo Irene, RN RN iw Lesley Garduno RN RN 2 Zulema Mcintosh RN RN ap3 Michel Tatum DO DO ms3 Lynsey Peters jw7
--- NOTE | 2022-05-17 18:13 | CON ---
Date of Consultation: 05/17/2022 Reason For Consultation: Elevated BUN and creatinine, anasarca. 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 The patient came to the office yesterday complaining from increased leg swelling even though that he increased his Bumex to 2 mg b.i.d. and taking his metolazone as prescribed. The patient over the last 10 days gained 12 pounds. The patient was having shortness of breath. For that reason, the patient was sent to the hospital. Primary workup showed creatinine 3 and over volume. For that reason, we have been consulted. The patient denied any chest pain. Past Medical History: Includes; 1. Coronary artery disease complicated with congestive heart failure, diastolic dysfunction. 2. Diabetes complicated with neuropathy, nephropathy. 3. Hypertension. 4. Hyperlipidemia. 5. Pulmonary hypertension. 6. Chronic kidney disease, stage 4 secondary to obstructive uropathy, cardiorenal, diabetes nephropathy, baseline creatinine 2.5, GFR 30. Allergies: NO KNOWN ALLERGY. Family History: Positive for hypertension. Social History: Denied smoking. Denied drinking. Denied drugs abuse. Home Medications: Include; 1. Metolazone 2.5 mg b.i.d. 2. Bumex 2 mg twice a day. 3. Levothyroxine 150. 4. Spironolactone. 5. Pantoprazole. 6. Insulin. 7. Atorvastatin. 8. Amiodarone. 9. Allopurinol. Review of Systems: Head and Neck: No red eye. No ear pain. GI: No nausea. No vomiting. : No polyuria. No dysuria. No hematuria. Locksmith Helper: Not applicable. Respiratory: Has shortness of breath. Cardiovascular: Has orthopnea. Endocrine: No polydipsia. Skin: No rash. Neuro: Has neuropathy. Musculoskeletal: Generalized fatigue. Physical Examination: Vital Signs: When I saw the patient; blood pressure of 158/68, pulse of 64, afebrile. Chest: Crackles bilateral. Heart: S1, S2. Systolic murmur. Abdomen: Soft, nontender. Extremity: +3 edema. Neurologic: Alert. No focality. Laboratory Data: Sodium 133, potassium 4.3, bicarb 37, BUN 78, creatinine 6.3, calcium 8.6. H and H 9.3/29.6. Current Medications: The patient on include Epogen, Zofran, normal saline. Assessment And Plan: 1. Acute kidney injury on advanced chronic kidney disease, mostly secondary to cardiorenal, over volume. I am going to discontinue IV fluid, switch the patient to IV Lasix drip, and we will follow up the patient. We will monitor the patient closely. Continue metolazone. 2. Hypertension. We will continue to utilize blood pressure for more diuresis. 3. Hyponatremia secondary to dilutional. We will optimize diuresis. 4. Anasarca secondary to cardiorenal/hypothyroidism. I am going to increase his levothyroxine. We will start Lasix drip, continue metolazone. 5. Diabetes as by primary. 6. Deconditioning. Continue PT/OT. Time spent examining the patient [id number], reviewing the data lab and radiology, placing orders, discussing with the patient, explaining risks, benefits, alternatives, discussing with the staff member including nursing discussing with the hospitalist more than 65 minutes. SHARON Voice ID: [id number] Report ID: [id number] MTDD
[2022-05-17] MEDS: HEPARIN 5000 UNIT/ML 1 ML VIAL SQ SCH (22:05)
[2022-05-18] MEDS: ALBUMIN HUMAN 25% 12.5 GM, FUROSEMIDE 100 MG in NA CHLORIDE 0.9% 40 ML IV SCH ×8 (01:00→22:50)
--- NOTE | 2022-05-18 02:25 | P.HP ---
Certification for Inpatient Patient admitted to: Inpatient With expected LOS: >2 Midnights Patient will require the following post-hospital care: None Practitioner: I am a practitioner with admitting privileges, knowledge of patient current condition, hospital course, and medical plan of care. Services: Services provided to patient in accordance with Admission requirements found in Title 42 Section 412.3 of the Code of Federal Regulations Patient History Date of Service: 05/17/22 Reason for admission: Anasarca; acute on CKD History of Present Illness: Patient is a 86-year-old gentleman who came to the hospital after being referred over from the nephrology office. Patient was edematous in his bilateral lower extremity. He had recently had his diuretics increased, but he still has been gaining weight. He also is having some shortness of breath. Patient was sent to the emergency room for direct admission. Patient's baseline creatinine is ab out 2.6. On arrival he was greater than 3. Patient also has a history of diastolic (HFpEF),along with pulmonary hypertension, and COPD. Also with atrial fibrillation and chronic lymphedema. Patient also with diabetes with complications of nephropathy and neuropathy. Patient will be admitted to the hospital for more aggressive diuresis. He has been started on albumin and Lasix drip. He looks to have developed some abdominal ascites. We will get an abdominal ultrasound. Consult IR in AM if significant ascites. He will be admitted for inpatient hospitalization. Allergies No Known Allergies Allergy (Verified 01/19/18 04:44) Home Medications: Allopurinol 100 mg PO DAILY 09/01/20 Pantoprazole [Protonix Tab*] 40 mg PO DAILY 09/01/20 Tamsulosin [Flomax*] 1 tab PO BID 09/01/20 Amiodarone HCl [Cordarone*] 200 mg PO DAILY #30 tab 09/06/20 Atorvastatin Calcium 40 mg PO BEDTIME 09/06/21 Insulin Glargine Human [Lantus*] 60 units SQ BEDTIME 09/06/21 hydrOXYzine HCL [Atarax*] 25 mg PO TID 09/06/21 Insulin Aspart [Novolog Flexpen] 15 unit SQ TIDWM 09/18/21 Spironolactone [Aldactone*] 25 mg PO BID #60 tab 11/03/21 Bumetanide [Bumex*] 2 mg PO BID #60 tab 11/21/21 Levothyroxine Sodium [Levothyroxine] 150 mcg PO DAILY #30 11/21/21 Metolazone [Zaroxolyn] 5 mg pe PO BID #60 11/21/21 Saliva Stimulant Agents Comb.3 [Biotene Moisturizing Mouth] 44.3 ml MM 6XD 30 Days #1 bottle 11/21/21 Silver Sulfadiazine [Silvadene 1% Cream] 1 appl TOP DAILY tube 11/21/21 - Past Medical/Surgical History Has patient received pneumonia vaccine in the past: No Diabetic: Yes -: HTN -: Hyperlipidemia -: Diabetes mellitus type 2 insulin-dependent -: History of asbestosis -: History MRSA foot w/ cellulitis -: Obstructive sleep apnea -: Chronic atrial fibrillation not on chronic anti coagulation -: Diastolic CHF -: Chronic lymphedema -: Hypothyroidism -: Chronic renal disease stage III -: Bilateral wrist sx (fell off deer stand and broke both wrist) -: cataract sx -: Right hip sx r/t fx Psychosocial/ Personal History: Patient lives at home by himself but has caregiver coming throughout the week. - Family History Mother Notes: denies having family history of illness Father Notes: denies having family history of illness Sister Notes: denies having family history of illness Brother Notes: denies having family history of illness - Social History Smoking Status: Never smoker Alcohol use: No CD- Drugs: No Caffeine use: Yes Review of Systems 10-point ROS is otherwise unremarkable Physical Examination - Vital Signs Temperature: 97.8 F Blood Pressure: 154/66 Pulse: 60 Respirations: 20 Pulse Ox (%): 98 - Physical Exam General: Alert, In no apparent distress, Oriented x3, Other (lethargic) HEENT: Atraumatic, PERRLA, Mucous membr. moist/pink, EOMI, Sclerae nonicteric Neck: Supple, 2+ carotid pulse no bruit, No LAD, Without JVD or thyroid abnormality Respiratory: Diminished, Friction rub Cardiovascular: Regular rate/rhythm, Normal S1 S2, Systolic murmur Gastrointestinal: Normal bowel sounds, Soft and benign, Non-distended, No tenderness, No rebound, No guarding, Distended Musculoskeletal: No clubbing, No tenderness, Swelling Integumentary: No rashes Neurological: Normal speech, Normal tone, Sensation intact, Cranial nerves 3-12 intact, Normal affect, Abnormal gait, Abnormal strength Lymphatics: No axilla or inguinal lymphadenopathy Assessment & Plan - Problems (Diagnosis) (1) 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 Current Visit: No Status: Acute (2) Acute worsening of stage 3 chronic kidney disease Current Visit: No Status: Acute (3) Anasarca Current Visit: No Status: Acute (4) Chronic atrial fibrillation Current Visit: No Status: Acute (5) Chronic diastolic heart failure Current Visit: No Status: Acute (6) GERD (gastroesophageal reflux disease) Current Visit: No Status: Acute (7) Hyperlipidemia Current Visit: No Status: Acute (8) Hypertension Current Visit: No Status: Acute (9) Hypothyroidism Current Visit: No Status: Acute (10) Lymphedema Current Visit: No Status: Chronic (11) Uremia Current Visit: Yes Status: Acute - Plan Plan: 1. Patient been started on albumin and Lasix drip 2. Abdominal ultrasound 3. Monitor renal function closely 4. Echocardiogram will be repeated if one has not been done recently 5. Nephrology consultation 6. Physical therapy evaluation 7. Continue with cardiac meds for rate control and anticoagulation 8. Monitor neurologic status as uremia has worsened 9. Strict blood pressure and blood sugar control 10. GI and DVT prophylaxis Discharge Plan: Home Plan to discharge in: Greater than 2 days - Advance Directives Does patient have a Living Will: Yes Does patient have a Durable POA for Healthcare: Yes - Code Status/Comfort Care Code Status Assessed: Yes Code Status: Full Code Critical Care: No Time Spent Managing PTS Care (In Minutes): 45
[2022-05-18] MEDS ORDERED: ACETYLCYST 20% 800 MG/4 ML VIAL PO PRN (03:21)
[2022-05-18] MEDS: LEVOTHYROXINE SOD 0.1 MG TAB PO SCH (05:31)
[2022-05-18] MEDS: LEVOTHYROXINE SOD 0.075 MG TAB PO SCH (05:31)
[2022-05-18] MEDS: BENZONATATE 100 MG CAP PO PRN (05:31)
[2022-05-18 06:11] LABS: Absolute Lymphocytes (CBC) 0.7 K/uL (0.7-4.9); Hematocrit 31.8 % (39.6-49.0); Lymphocytes % 10.7 % (15.3-44.8); MCV 88.7 fL (80-100); MPV 6.3 fL (7.6-11.3); RBC Red Blood Cell Count 3.59 M/uL (4.33-5.43)
[2022-05-18] MEDS ORDERED: LEVOTHYROXINE SOD 0.125 MG TAB PO SCH (06:30)
[2022-05-18 06:33] LABS: Albumin 3.2 g/dL (3.4-5.0); Bilirubin Total 0.3 mg/dL (0.2-1.0); Phosphorus 4.6 mg/dL (2.5-4.9); Potassium 4.3 mmol/L (3.5-5.1); Protein, Total 8.2 g/dL (6.4-8.2)
[2022-05-18 06:54] LABS: Specific Gravity 1.015 (1.005-1.030); Urine Bilirubin Negative (Negative); Urine Blood 3+ (Negative); Urine Clarity Cloudy (Clear); Urine Color Yellow (Yellow); Urine Glucose Negative (Negative); Urine Protein Negative (Negative); Urine Urobilinogen 0.2 mg/dL (0.2-1.0)
[2022-05-18 07:22] LABS: Urine Bacteria <20 /HPF (<20); Urine RBC 21-50 /HPF (None Seen)
[2022-05-18] MEDS ORDERED: ENOXAPARIN 40 MG/0.4 ML SQ SCH (09:00)
[2022-05-18] MEDS ORDERED: FUROSEMIDE 40 MG/4 ML VIAL IV SCH (09:00)
[2022-05-18] MEDS: HEPARIN 5000 UNIT/ML 1 ML VIAL SQ SCH ×2 (09:10→22:50)
[2022-05-18] MEDS: METOLAZONE 5 MG TABLET PO SCH (09:11)
--- NOTE | 2022-05-18 10:08 | P.PN ---
Subjective Date of Service: 05/18/22 Chief Complaint: Anasarca; acute on CKD No change in patient's condition still has some lower extremity edema by nephrology is also having some shortness of breath chronic renal failure chronic lymphedema stage II ulcer in the left thigh some mild cholelithiasis Review of Systems General: Weakness Respiratory: Shortness of Breath Cardiovascular: Edema Physical Examination - Vital Signs Temperature: 97.1 F Blood Pressure: 149/66 Pulse: 62 Respirations: 18 Pulse Ox (%): 96 - Physical Exam General: Alert, Oriented x3 HEENT: Atraumatic, Other Cardiovascular: Edema (3+ edema) Assessment And Plan - Current Problems (Diagnosis) (1) Acute on chronic kidney failure Current Visit: No Status: Acute Plan: Patient is 86 years of age admitted with volume overload lower extremity edema worsening renal function echocardiogram is pending 1 dose of high-dose Lasix seen by nephrology echocardiogram is pending add metolazone as per nephrology recommendation vital signs are stable renal function is improved labs reviewed Qualifiers: Chronic kidney disease stage: stage 4 (severe)
--- NOTE | 2022-05-18 11:57 | P.PN ---
Subjective Date of Service: 05/18/22 Chief Complaint: Anasarca; acute on CKD Subjective: No new changes Physical Examination - Vital Signs Temperature: 97.8 F Blood Pressure: 140/65 Pulse: 63 Respirations: 16 Pulse Ox (%): 84 - Physical Exam General: Other (appears chronically ill) HEENT: Atraumatic, Normocephalic Neck: JVD not distended Respiratory: Other (symmetric chest expansion) Cardiovascular: No rubs, No murmurs Gastrointestinal: Soft and benign, No rebound Musculoskeletal: No clubbing Integumentary: No warmth Neurological: Other (no new focal deficits) Urinary: Other (no bladder distention) External genitalia: Deferred Rectal: Deferred Assessment And Plan - Plan 1. Acute kidney injury on advanced chronic kidney disease, mostly secondary to cardiorenal, over volume. repeat urine chemistry today showed high urine sodium and high urine potassium consistent with diuretic effect. On lasix gtt + metolazone. monitor input and output, renal panel. 2. History of CKD IIIB to 4. Baseline serum creatinine 1.8-2.2. Monitor renal panel. 3. Alkalosis. Monitor. 4. Hypermagnesemia. diuretic as above. Monitor. 5. Hypertension. blood pressure slightly above goal. Continue current medication regimen. 6. Hyponatremia secondary to dilutional. We will optimize diuresis. 7. Anasarca secondary to cardiorenal/hypothyroidism. BNP sig elevated. Diuretics as above. 8. DM2. Mngt per primary team. 9. Deconditioning. Continue PT/OT.
[2022-05-19] MEDS: ALBUMIN HUMAN 25% 12.5 GM, FUROSEMIDE 100 MG in NA CHLORIDE 0.9% 40 ML IV SCH ×2 (03:04→07:00)
[2022-05-19 06:05] LABS: Albumin 3.8 g/dL (3.4-5.0); Phosphorus 4.6 mg/dL (2.5-4.9)
[2022-05-19] MEDS: LEVOTHYROXINE SOD 0.075 MG TAB PO SCH (06:18)
[2022-05-19] MEDS: LEVOTHYROXINE SOD 0.1 MG TAB PO SCH (06:18)
[2022-05-19] MEDS: METOLAZONE 5 MG TABLET PO SCH (09:07)
[2022-05-19] MEDS: HEPARIN 5000 UNIT/ML 1 ML VIAL SQ SCH ×2 (09:07→22:30)
--- NOTE | 2022-05-19 09:09 | P.DS ---
Admission Date: 05/17/22 Discharge Date: 05/19/22 Disposition: ROUTINE DISCHARGE Discharge Condition: FAIR Reason for Admission: Anasarca; acute on CKD - Problems (1) Acute on chronic kidney failure Current Visit: No Status: Acute Qualifiers: Chronic kidney disease stage: stage 4 (severe) Brief History of Present Illness: 6 years of age chronic renal failure admitted with worsening lower extremity edema Hospital Course: Patient was admitted to the hospital seen by labor relations consultant was diuresed at the time of discharge he was alert oriented responsive she does have home oxygen edema had decreased vital signs stable he has chronic renal failure at baseline at the time of discharge he was alert oriented responsive cooperative no new complaints was ready to go home abdominal ultrasound shows cholelithiasis patient has anemia of chronic renal failure Vital Signs/Physical Exam: Temp Pulse Resp BP Pulse Ox 96.5 F L 58 16 141/60 H 85 L 05/19/22 08:00 05/19/22 08:00 05/19/22 08:00 05/19/22 08:00 05/19/22 08:00 Laboratory Data at Discharge: WBC 6.20 K/uL (4.3-10.9) 05/18/22 05:54 Hgb 10.6 g/dL (13.6-17.9) L 05/18/22 05:54 Hct 31.8 % (39.6-49.0) L 05/18/22 05:54 Plt Count 145 K/uL (152-406) L 05/18/22 05:54 PT 12.7 SECONDS (9.5-12.5) H 05/17/22 14:10 INR 1.15 05/17/22 14:10 APTT 41.2 SECONDS (24.3-36.9) H 05/17/22 14:10 Sodium 130 mmol/L (136-145) L 05/19/22 05:32 Potassium 4.0 mmol/L (3.5-5.1) 05/19/22 05:32 BUN 92 mg/dL (7-18) H 05/19/22 05:32 Creatinine 3.02 mg/dL (0.55-1.3) H 05/19/22 05:32 Glucose 132 mg/dL (74-106) H 05/19/22 05:32 Phosphorus 4.6 mg/dL (2.5-4.9) 05/19/22 05:32 Magnesium 4.0 mg/dL (1.8-2.4) H* D 05/18/22 05:54 Total Bilirubin 0.3 mg/dL (0.2-1.0) 05/18/22 05:54 AST 14 U/L (15-37) L 05/18/22 05:54 ALT 14 U/L (12-78) 05/18/22 05:54 Alkaline Phosphatase 106 U/L (45-117) 05/18/22 05:54 Home Medications: Allopurinol 100 mg PO DAILY 09/01/20 Pantoprazole [Protonix Tab*] 40 mg PO DAILY 09/01/20 Tamsulosin [Flomax*] 1 tab PO BID 09/01/20 Amiodarone HCl [Cordarone*] 200 mg PO DAILY #30 tab 09/06/20 Atorvastatin Calcium 40 mg PO BEDTIME 09/06/21 Insulin Glargine Human [Lantus*] 60 units SQ BEDTIME 09/06/21 hydrOXYzine HCL [Atarax*] 25 mg PO TID 09/06/21 Insulin Aspart [Novolog Flexpen] 15 unit SQ TIDWM 09/18/21 Spironolactone [Aldactone*] 25 mg PO BID #60 tab 11/03/21 Bumetanide [Bumex*] 2 mg PO BID #60 tab 11/21/21 Levothyroxine Sodium [Levothyroxine] 150 mcg PO DAILY #30 11/21/21 Metolazone [Zaroxolyn] 5 mg pe PO BID #60 11/21/21 Saliva Stimulant Agents Comb.3 [Biotene Moisturizing Mouth] 44.3 ml MM 6XD 30 Days #1 bottle 11/21/21 Silver Sulfadiazine [Silvadene 1% Cream] 1 appl TOP DAILY tube 11/21/21 Diet: Low sodium Followup: Cesar Mckenzie MD [Primary Care Provider] -
[2022-05-19 09:45] LABS: Albumin 3.9 g/dL (3.4-5.0); Bilirubin Total 0.6 mg/dL (0.2-1.0); Protein, Total 9.3 g/dL (6.4-8.2)
[2022-05-19] MEDS: D5 NS IV SCH (12:58)
[2022-05-19] MEDS: FUROSEMIDE IV SCH (12:58)
--- NOTE | 2022-05-19 13:09 | RAD REPORT ---
EXAM DESCRIPTION: RAD - Chest Single View - 05/19/2022 12:49 pm CLINICAL HISTORY: volume overload COMPARISON: <Comparisons> FINDINGS: Lines: None. Lungs: Re- demonstrated diffuse prominence of the pulmonary interstitium. Pleural: No significant pleural effusions or pneumothorax. Cardiac: Cardiomegaly. Bones: No acute fractures. Other: IMPRESSION: Diffuse prominence of the pulmonary interstitium likely reflecting edema that is similar to 11/19/2021.
--- NOTE | 2022-05-19 13:27 | PN ---
Date of Progress Note: 05/19/2022 Subjective: The patient was admitted with acute kidney injury secondary to cardiorenal, anasarca. The patient was started on Lasix drip. Blood pressure still controlled as above. The patient is not losing significant weight. Physical Examination: Vital Signs: Blood pressure 117/49, pulse of 60, afebrile. The patient had urine output of 1600, negative of 800. Chest: Crackles bilateral. Heart: S1, S2. Systolic murmur. Abdomen: Soft, nontender. Extremity: +2 edema. The patient had compression wraps on both legs. Laboratory Data: Chest x-ray; cardiomegaly with congestion. H and H 10.6/31.8. Sodium 129, potassium 4, bicarb 36, BUN 84, creatinine 3.1, GFR of 19, calcium 9.1. Current Medications: The patient on include Lasix drip at 20 mg per hour, heparin, alprazolam, metolazone 5 mg daily, levothyroxine 175. Assessment And Plan: 1. Acute kidney injury secondary to cardiorenal on advanced chronic kidney disease, still over volume. I am going to go ahead and increase his Lasix to 40 mg per hour and we will monitor. 2. Hypertension, controlled. We will utilize blood pressure for more diuresis. 3. Congestive heart failure with exacerbation as above. 4. Hyponatremia secondary to dilutional. Continue diuresis. 5. Anasarca secondary to congestive heart failure as above. 6. Hypothyroidism, poorly controlled. We increased the levothyroxine. We will follow up. Time spent examining the patient [id number], reviewing the data lab and radiology, placing orders, discussing with the patient, explaining risks, benefits, alternatives, discussing with the staff member including nursing discussing with the hospitalist more than 35 minutes. SHARON Voice ID: [id number] Report ID: [id number] ANN
[2022-05-20] MEDS: LEVOTHYROXINE SOD 0.075 MG TAB PO SCH (05:51)
[2022-05-20] MEDS: LEVOTHYROXINE SOD 0.1 MG TAB PO SCH (05:51)
[2022-05-20 06:32] LABS: Albumin 3.9 g/dL (3.4-5.0); Phosphorus 5.3 mg/dL (2.5-4.9); Potassium 4.2 mmol/L (3.5-5.1)
[2022-05-20] MEDS: HEPARIN 5000 UNIT/ML 1 ML VIAL SQ SCH ×2 (08:22→21:07)
[2022-05-20] MEDS: METOLAZONE 5 MG TABLET PO SCH (08:22)
[2022-05-20] MEDS ORDERED: PNEUMOCOCCAL VACCINE 0.5 ML IMVAC ONE ×2 (11:00→16:30)
[2022-05-20 11:19] LABS: Albumin 3.9 g/dL (3.4-5.0); Bilirubin Total 0.6 mg/dL (0.2-1.0); Potassium 3.5 mmol/L (3.5-5.1); Protein, Total 9.5 g/dL (6.4-8.2)
[2022-05-20] MEDS ORDERED: POTASSIUM CL SA 10 MEQ TAB PO ONE (12:30)
[2022-05-20] MEDS: FUROSEMIDE IV SCH ×2 (13:00→15:31)
[2022-05-20] MEDS: D5 NS IV SCH ×2 (13:00→15:31)
--- NOTE | 2022-05-20 14:10 | PN ---
Date of Progress Note: 05/20/2022 Subjective: The patient was admitted with acute kidney injury secondary to cardiorenal, anasarca. The patient was started on Lasix drip. Yesterday, we had to increase the Lasix drip to 40 mg per hour. The patient showed a very good response, had negative of 3 L. Physical Examination: Vital Signs: Blood pressure 148/68, pulse of 60, afebrile. The patient had urine output of 3 L, negative of 1700. Chest: Decreased entry bilateral base. Heart: S1, S2. Systolic murmur. Abdomen: Soft, nontender. Extremity: Compression dressing on both legs and feet, but edema has been improved. Neurologic: Alert, oriented x3. No focal. Laboratory Data: WBC 6.2, H and H 10.6/31.8, platelets 145. Sodium 126, potassium 3.5, bicarb 36, BUN 95, creatinine 3.1, calcium is 9.2, albumin 3.9. Current Medications: The patient on include heparin, alprazolam, Lasix drip, metolazone 5 mg daily, levothyroxine 175 mcg, benzonatate. Assessment And Plan: 1. Acute kidney injury secondary to cardiorenal, plateaued, nonoliguric, still over volume. I am going to continue another day on the Lasix drip. We will consider hopefully switching tomorrow. 2. Hypertension. Keep utilizing blood pressure for diuresis. 3. Anasarca, multifactorial, secondary to hypothyroidism and renal failure. We increased the levothyroxine. We are going to continue with Lasix drip. As I mentioned, we will consider changing to bolus tomorrow. 4. Hypokalemia. I am going to go ahead and supplement. 5. Hyponatremia, dilutional. We will continue diuresis. Time spent examining the patient [id number], reviewing the data lab and radiology, placing orders, discussing with the patient, explaining risks, benefits, alternatives, discussing with the staff member including nursing discussing with the hospitalist more than 35 minutes. SHARON Voice ID: [id number] Report ID: [id number] ANN
--- NOTE | 2022-05-20 16:06 | P.PN ---
Subjective Date of Service: 05/20/22 Chief Complaint: Anasarca; acute on CKD Patient is improving doing well no new complaints seen by nephrology continue with diuresis lower extremity edema has decreased Review of Systems Unremarkable General: Weakness Physical Examination - Vital Signs Temperature: 97.2 F Blood Pressure: 124/53 Pulse: 60 Respirations: 18 Pulse Ox (%): 91 - Physical Exam General: Alert, Oriented x3 Respiratory: Clear to auscultation bilaterally Cardiovascular: Edema Gastrointestinal: Normal bowel sounds, Soft and benign Assessment And Plan - Current Problems (Diagnosis) (1) Acute on chronic kidney failure Current Visit: No Status: Acute Plan: Patient is doing much better good response to IV Lasix drip renal function is also improving/ seen by nephrology today to continue with the IV Lasix for now change to PO tomorrowPatient's creatinine has increased slightlyLabs reviewed Qualifiers: Chronic kidney disease stage: stage 4 (severe)
[2022-05-20] MEDS ORDERED: D50W 25 GM/50 ML SYRINGE IV PRN (22:56)
[2022-05-20] MEDS ORDERED: GLUCAGON 1 MG/VIAL IM PRN (22:56)
[2022-05-20] MEDS: INSULIN -REGULAR HUMAN 50 UNIT/0.5 ML ML SQ SCH (23:24)
[2022-05-21 04:03] LABS: Albumin 3.7 g/dL (3.4-5.0); Phosphorus 5.1 mg/dL (2.5-4.9); Potassium 3.8 mmol/L (3.5-5.1)
[2022-05-21] MEDS: LEVOTHYROXINE SOD 0.1 MG TAB PO SCH (06:29)
[2022-05-21] MEDS: LEVOTHYROXINE SOD 0.075 MG TAB PO SCH (06:29)
[2022-05-21 06:41] VITALS: BMI 36.8
--- NOTE | 2022-05-21 07:17 | ECHO ---
HEIGHT: 5 ft 7 in WEIGHT: 235 lb 6.4 oz DATE OF STUDY: 05/18/[address]: Pablo Barriga MD 2-DIMENSIONAL: YES M.MODE: YES DOPPLER: YES COLOR FLOW: YES TDS: PORTABLE: YES DEFINITY: BUBBLE STUDY: DIAGNOSIS: RIGHT HEART FAILURE CARDIAC HISTORY: CATHERIZATION: SURGERY: PROSTHETIC VALVE: PACEMAKER: MEASUREMENTS (cm) DIASTOLIC (NORMALS) SYSTOLIC (NORMALS) IVSd 1.1 (0.6-1.2) LA Diam 4.0 (1.9-4.0) LVEF 60-65% LVIDd 5.6 (3.5-5.7) LVIDs 2.9 (2.0-3.5) %FS 48% LVPWd 1.2 (0.6-1.2) Ao Diam 3.4 (2.0-3.7) 2 DIMENSIONAL ASSESSMENT: RIGHT ATRIUM: NORMAL LEFT ATRIUM: NORMAL RIGHT VENTRICLE: NORMAL LEFT VENTRICLE: NORMAL TRICUSPID VALVE: MILD TRICUSPID REGURGITATION MITRAL VALVE: MILD CALCIFICATION PULMONIC VALVE: NORMAL AORTIC VALVE: NORMAL PERICARDIAL EFFUSION: NONE AORTIC ROOT: NORMAL LEFT VENTRICULAR WALL MOTION: NORMAL DOPPLER/COLOR FLOW: SEE BELOW COMMENTS: NORMAL LEFT VENTRICULAR EJECTION FRACTION 60-65% WITH NORMAL WALL MOTION. MILD TRICUSPID REGURGITATION. 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 NORAML RIGHT VENTRICULAR SIZE AND FUNCTION. MODERATE DIASTOLIC DYSFUNCTION. TECHNOLOGIST: LETICIA TELLO
[2022-05-21] MEDS: INSULIN -REGULAR HUMAN 50 UNIT/0.5 ML ML SQ SCH ×4 (07:30→21:43)
[2022-05-21] MEDS ORDERED: POTASSIUM CL SA 10 MEQ TAB PO ONE (09:00)
[2022-05-21] MEDS: HEPARIN 5000 UNIT/ML 1 ML VIAL SQ SCH ×2 (10:05→21:55)
[2022-05-21] MEDS: METOLAZONE 5 MG TABLET PO SCH (10:06)
[2022-05-21] MEDS: BENZONATATE 100 MG CAP PO PRN (10:14)
[2022-05-21 10:43] LABS: Albumin 3.6 g/dL (3.4-5.0); Bilirubin Total 0.5 mg/dL (0.2-1.0); Potassium 3.6 mmol/L (3.5-5.1)
[2022-05-21] MEDS: D5 NS IV SCH (15:33)
[2022-05-21] MEDS: FUROSEMIDE IV SCH (15:33)
--- NOTE | 2022-05-21 22:33 | P.PN ---
Subjective Date of Service: 05/21/22 Chief Complaint: Anasarca; acute on CKD Subjective: No new changes No acute events overnight. He denies any abdominal pain, nausea, vomiting, dysuria, hematuria, or pyuria. Review of Systems 10-point ROS is otherwise unremarkable General: Weakness, Malaise Physical Examination - Vital Signs Temperature: 97.4 F Blood Pressure: 118/50 Pulse: 55 Respirations: 16 Pulse Ox (%): 91 - Physical Exam General: Alert, In no apparent distress, Oriented x3 HEENT: Atraumatic, PERRLA, Mucous membr. moist/pink, EOMI, Sclerae nonicteric Neck: Supple, JVD not distended Respiratory: Clear to auscultation bilaterally, Normal air movement Cardiovascular: Regular rate/rhythm, Normal S1 S2, No gallops, No rubs, No m urmurs, Edema (1+ bilateral) Gastrointestinal: Normal bowel sounds, Soft and benign, Non-distended, No tenderness, No rebound, No guarding Musculoskeletal: No clubbing Integumentary: No rashes Neurological: Normal speech, Cranial nerves 3-12 intact, Normal affect Assessment And Plan - Plan # Acute Kidney Injury on Chronic Kidney Disease Stage III with concern for Cardiorenal Syndrome # Microscopic Hematuria - Nephrology consulted and Dr. Kincaid following - recommendations appreciated - Currently on furosemide drip and metolazone - Creatinine = 3.12 (was 2.12 on 11/21/2021) - Urinalysis = 3+ blood, 3+ leukocyte esterase, 21-50 RBCs, >50 WBCs - Renal Ultrasound = "The right kidney measures 9 centimeters with a normal echotexture. The left kidney measures 9 centimeters with a normal echotexture. " - Monitor creatinine and urine output - Renally dose medications # Acute Decompensated Congestive Heart Failure with Preserved Ejection Fraction - Cardiology consulted - recommendations appreciated - TTE = moderate diastolic dysfunction - Continue furosemide drip per Nephrology for now # Hyponatremia Likely multifactorial due to hypervolemia as well as metolazone use - Appreciate Nephrology recommendations # Chronic Atrial Fibrillation # Hypertension # Hyperlipidemia # Hypothyroidism - Continue home meds Devon Marc M.D.
--- NOTE | 2022-05-21 23:59 | PN ---
Date of Progress Note: 05/21/2022 Chief Complaint: Acute kidney injury, anasarca, fluid overload. History Of Present Illness: Patient was started on Lasix drip to treat fluid overload, cardiorenal s yndrome. Patient developed hyponatremia. Sodium level is 126 and 125, although glucose level is yasir vated, patient denies PND or orthopnea. Physical Examination: Lungs: Clear to auscultation bilaterally. Heart: S1, S2. Abdomen: Soft. Extremities: Edema present. Laboratory Data: Sodium 125, potassium 3.6, chloride 80, carbon dioxide 35, BUN 106, creatinine leve l 3.12, glucose 285, albumin 3.6, total protein 09.0. Impression And Plan: 1.Acute kidney injury secondary to cardiorenal syndrome. Plan is to switch to IV Lasix. Metolazone is on hold. Continue to monitor sodium level. Continue p.o. fluid restriction. 2.Diabetes mellitus. Adjust insulin. 3.Hyperazotemia. Patient may require hemodialysis for volume control and metabolic clearance. EB/MODL Voice ID: [id number] Report ID: [id number]
[2022-05-22] MEDS: FUROSEMIDE 40 MG/4 ML VIAL IV SCH ×2 (00:55→08:29)
[2022-05-22 04:27] LABS: Albumin 3.8 g/dL (3.4-5.0); Phosphorus 5.6 mg/dL (2.5-4.9); Potassium 3.3 mmol/L (3.5-5.1)
[2022-05-22] MEDS ORDERED: POTASSIUM 25 MEQ EFFERV TAB PO ONE (05:17)
[2022-05-22] MEDS: LEVOTHYROXINE SOD 0.075 MG TAB PO SCH (05:59)
[2022-05-22] MEDS: LEVOTHYROXINE SOD 0.1 MG TAB PO SCH (05:59)
[2022-05-22] MEDS: HEPARIN 5000 UNIT/ML 1 ML VIAL SQ SCH ×2 (08:29→22:11)
[2022-05-22] MEDS: INSULIN -REGULAR HUMAN 50 UNIT/0.5 ML ML SQ SCH ×4 (08:29→22:11)
--- NOTE | 2022-05-22 10:26 | RAD REPORT ---
EXAM DESCRIPTION: [place] Single View05/22/2022 10:06 am CLINICAL HISTORY: COPD COMPARISON: May 19, 2022 FINDINGS: The lungs appear clear of acute infiltrate. The heart is mildly enlarged IMPRESSION: No acute abnormalities displayed
[2022-05-22] MEDS: DIPHENHYDRAMINE 25 MG TAB/CAP PO PRN ×2 (11:27→22:11)
--- NOTE | 2022-05-22 12:14 | PN ---
Date of Progress Note: 05/22/2022 Subjective: Patient was admitted with acute kidney injury secondary to cardiorenal with anasarca. Patient was started on aggressive diuresis. Patient lost 20 pounds since admission. Edema has been subsided significantly. Physical Examination: Vital Signs: Blood pressure of 138/65, pulse of 50, afebrile. Chest: Clear to auscultation. Heart: S1, S2. Systolic murmur. Abdomen: Soft, nontender. Extremities: Both legs compression dressing. Laboratory Data: WBC 6.2, H and H 10.6/31.8. Sodium 127, potassium 3.3, bicarb 36, BUN 118, creatinine 3.2. GFR of 18. Calcium 9.3. Phosphorus 5.6. Albumin 3.8. Current Medications: The patient is on include: 1. Heparin. 2. Lasix 80 t.i.d. 3. Zofran. 4. Levothyroxine. 5. KCl. Assessment And Plan: 1. Acute kidney injury on advanced chronic kidney disease secondary to cardiorenal, currently normal volume. I am going to go ahead and switch the patient to oral Lasix. If he stays stable, patient will be okay to be discharged tomorrow. 2. Hypertension. We will keep utilizing blood pressure for more diuresis. 3. Hypokalemia. We will supplement. 4. Hyponatremia, dilutional. We will continue diuresis. 5. Wound infection, methicillin-resistant Staphylococcus aureus, Proteus mirabilis, pseudomonas. I will start the patient on Levaquin and we will follow up. 6. Anasarca, multifactorial, secondary to cardiorenal. We will continue levothyroxine. Continue diuresis. Time spent examining the patient [id number], reviewing the data lab and radiology, placing orders, discussing with the patient, explaining risks, benefits, alternatives, discussing with the staff member including nursing discussing with the hospitalist more than 35 minutes. SHARON Voice ID: [id number] Report ID: [id number] ANN
[2022-05-22] MEDS: Levofloxacin 250mg IV 250 MG/50 ML BAG IV SCH (12:16)
--- NOTE | 2022-05-22 14:26 | CON ---
History Of Present Illness: This is an 86-year-old male. I was consulted for multiple wounds to the lower extremity and left posterior thigh. The patient is currently being treated with IV Levaquin. Wounds are growing Pseudomonas aeruginosa, Proteus mirabilis. Right lower extremity wound is growin g MRSA and left thigh wound also growing MRSA. Left foot wound is growing Pseudomonas aeruginosa wit h Proteus mirabilis. The patient denies any headache, nausea, vomiting, chest pain, abdominal pain, constipation, or diarrhea. Past Medical History: Renal failure, COPD, diastolic congestive heart failure, pulmonary hypertensio n, atrial fibrillation, chronic lymphedema, diabetes mellitus, diabetic neuropathy, hyperlipidemia, h ypothyroidism, cataract surgery, right hip surgery, bilateral wrist surgeries. Social History: Nonsmoker, nondrinker. Family History: Noncontributory. Medications: Levaquin. See MAR for other medications. Allergies: NO KNOWN DRUG ALLERGIES. Review of Systems: A 10-point review was performed. Physical Examination: General: This is an 86-year-old male, lying in bed, not in any acute cardiopulmonary distress. Vital Signs: Temperature 96.8, pulse 55, respirations 18, blood pressure 121/57. HEENT: Unremarkable. Neck: Supple. Lungs: Basal crackles. Heart: S1, S2. Regular. Abdomen: Soft, nontender. Bowel sounds present. Extremities: 1+ edema with wounds noted and described as above. Laboratory Data: Shows WBC 6.2, hemoglobin 10.6, platelets are 145. Chemistry shows sodium 127, pot assium 3.3, chloride 82, bicarb 36, BUN 118, creatinine 3.2, glucose is 202. Chest x-ray done today shows no acute abnormalities. Assessment And Plan: An 86-year-old male with multiple medical problems, coming in on May 17 to the hospital from the Nephrology office for lower extremity edema. The patient is growing methicill in-resistant Staphylococcus aureus, Pseudomonas aeruginosa, and Proteus mirabilis from his wounds inc luding left foot, left thigh. Consider using Bactroban to the wounds where methicillin-resistant Sta phylococcus aureus and using acetic acid to the area of Pseudomonas aeruginosa and Proteus mirabilis will benefit the patient. Keep legs elevated and consider doing a short course of doxycycline and Le vaquin for 7 days to eradicate any tissue infection. We will monitor the patient for any signs of in fection. The patient with significant history of diabetes mellitus and diabetic neuropathy, congesti ve heart failure, renal failure. Continue supportive care and wound care. Monitor signs for infecti on with WBC and fever trends. NF/MODL Voice ID: [id number] Report ID: [id number]
[2022-05-22] MEDS ORDERED: BUMETANIDE 1 MG TABLET PO SCH (21:00)
[2022-05-22] MEDS ORDERED: VANCOMYCIN 1 GM in NA CHLORIDE 0.9% 250 ML IVPB SCH (23:45)
--- NOTE | 2022-05-23 00:06 | P.PN ---
Subjective Date of Service: 05/23/22 Chief Complaint: Anasarca; acute on CKD No acute events overnight. He denies any abdominal pain, nausea, vomiting, dysuria, hematuria, or pyuria. He has multiple skin wounds that are slightly painful. He reports that his symptoms are controlled with acetaminophen. Review of Systems 10-point ROS is otherwise unremarkable General: Weakness, Malaise Integumentary: Other (multiple skin wounds) Physical Examination - Vital Signs Temperature: 96.8 F Blood Pressure: 145/65 Pulse: 54 Respirations: 14 Pulse Ox (%): 98 Assessment And Plan - Plan - Physical Exam General: Alert, In no apparent distress, Oriented x3 HEENT: Atraumatic, PERRLA, Mucous membr. moist/pink, EOMI, Sclerae nonicteric Neck: Supple, JVD not distended Respiratory: Clear to auscultation bilaterally, Normal air movement Cardiovascular: Regular rate/rhythm, Normal S1 S2, No gallops, No rubs, No murmurs, Edema (1+ bilateral) Gastrointestinal: Normal bowel sounds, Soft and benign, Non-distended, No tenderness, No rebound, No guarding Musculoskeletal: No clubbing Integumentary: Multiple skin wounds involving bilateral lower extremities Neurological: Normal speech, Cranial nerves 3-12 intact, Normal affect # Methicillin-Resistant Staphylococcus Aureus Left Thigh and Right Lower Leg Skin Infection # Pseudomonas Aureginosa and Proteus Mirabilis Sacral Pressure snf Left Foot Wound - Does not currently meet sepsis criteria - Consulted Infectious Diseases and spoke with Dr. Tao - recommendations appreciated - Continue vancomycin and levofloxacin - Wound care consulted # Acute Kidney Injury on Chronic Kidney Disease Stage III with concern for Cardiorenal Syndrome # Microscopic Hematuria - Nephrology consulted and Dr. Kincaid following - recommendations appreciated - Currently on furosemide drip and metolazone - Creatinine = 3.12 -> 3.29 (was 2.12 on 11/21/2021) - Urinalysis = 3+ blood, 3+ leukocyte esterase, 21-50 RBCs, >50 WBCs - Renal Ultrasound = "The right kidney measures 9 centimeters with a normal echotexture. The left kidney measures 9 centimeters with a normal echotexture. " - Monitor creatinine and urine output - Renally dose medications # Acute Decompensated Congestive Heart Failure with Preserved Ejection Fraction - Cardiology consulted - recommendations appreciated - TTE = moderate diastolic dysfunction - Continue furosemide drip per Nephrology for now # Hyponatremia Likely multifactorial due to hypervolemia as well as metolazone use - Appreciate Nephrology recommendations # Chronic Atrial Fibrillation # Hypertension # Hyperlipidemia # Hypothyroidism - Continue home meds Devon Marc M.D.
[2022-05-23] MEDS ORDERED: VANCOMYCIN 2 GM in NA CHLORIDE 0.9% 500 ML IVPB ONE (01:00)
[2022-05-23] MEDS ORDERED: VANCOMYCIN 1 GM/VIAL ONE (01:44)
[2022-05-23] MEDS ORDERED: NA CHLORIDE 0.9% 500 ML ONE (01:45)
[2022-05-23 04:10] LABS: Albumin 3.5 g/dL (3.4-5.0); Magnesium 3.4 mg/dL (1.8-2.4); Phosphorus 5.1 mg/dL (2.5-4.9); Potassium 3.6 mmol/L (3.5-5.1)
[2022-05-23] MEDS: LEVOTHYROXINE SOD 0.1 MG TAB PO SCH (05:26)
[2022-05-23] MEDS: LEVOTHYROXINE SOD 0.075 MG TAB PO SCH (05:26)
[2022-05-23] MEDS: BUMETANIDE 1 MG TABLET PO SCH (08:44)
[2022-05-23] MEDS: HEPARIN 5000 UNIT/ML 1 ML VIAL SQ SCH ×2 (08:45→21:21)
[2022-05-23] MEDS: INSULIN -REGULAR HUMAN 50 UNIT/0.5 ML ML SQ SCH ×4 (08:45→21:22)
[2022-05-23] MEDS: MEDIHONEY 44 ML TOPICAL TUBE TOP SCH (08:46)
[2022-05-23] MEDS ORDERED: POTASSIUM CL SA 10 MEQ TAB PO ONE (09:00)
[2022-05-23] MEDS: DIPHENHYDRAMINE 25 MG TAB/CAP PO PRN ×2 (10:22→21:21)
[2022-05-23 11:16] VITALS: O2SAT 100
[2022-05-23] MEDS: Levofloxacin 250mg IV 250 MG/50 ML BAG IV SCH (11:47)
--- NOTE | 2022-05-23 11:57 | PN ---
Subjective: The patient lying in bed. No new acute event. Chart reviewed. Objective: Vital Signs: Temperature 96, pulse 54, respirations 18, blood pressure 123/61, currently on 3 L nasal cannula. Lungs: Basal crackles. Heart: S1, S2. Regular. Abdomen: Soft, nontender. Bowel sounds present. Extremity: Trace edema. Wounds noted. Laboratory Data: Reviewed. Assessment And Plan: Methicillin-resistant Staphylococcus aureus and Pseudomonas aeruginosa. Methic illin-resistant Staphylococcus aureus to the right leg and left thigh wound. Pseudomonas aeruginosa to the left foot and sacral wound. Recommend to start local treatment of these wounds by using Engel dene to the sacral and left foot wound and mupirocin to the right lower leg and left thigh wound. Ke ep legs elevated and offloading by turning the patient every 2 hours. Also recommend to use a low ai r loss mattress to prevent further pressure wounds. Consider de-escalating oxygen therapy on this pa tient. Discontinue Levaquin on discharge. We will follow the patient as needed. NF/MODL Voice ID: [id number] Report ID: [id number]
--- NOTE | 2022-05-23 12:42 | PN ---
Date of Progress Note: 05/23/2022 Subjective: The patient was admitted with acute kidney injury secondary to cardiorenal, anasarca, and obstructive uropathy. The patient has been diuresed aggressively. Kidney function declining. Physical Examination: Vital Signs: Blood pressure 123/61, pulse of 54, afebrile. The patient had good urine output of 2700, negative of 1 L. Weight hitchcock, the patient lost almost 20 pounds from admission. Chest: Clear to auscultation. Heart: S1, S2. Regular. Abdomen: Soft, nontender. Extremities: Compression dressing on both lower extremities. Neurologic: Alert. No focality. Laboratory Data: H and H 10.6/31.8. Sodium 128, potassium 3.6, bicarb 36, BUN 132, creatinine 3.5, GFR of 16, calcium 8.9, , phosphorus 5.1. Current Medications: The patient on include; 1. Levaquin 250 daily. 2. Vancomycin, the patient received 1 g so far. 3. Heparin. 4. Tylenol. 5. Bumex 2 mg in the morning, 1 mg at night. 6. Levothyroxine. Assessment And Plan: 1. Acute kidney injury secondary to cardiorenal, worsening kidney function. I am going to discontinue vancomycin, continue Levaquin, and we will monitor. 2. Wound infection. Continue Levaquin dose appropriate. 3. Hyponatremia, dilutional. Continue diuresis. We will monitor. 4. Anasarca secondary to renal failure/hypothyroidism. Continue diuresis. We will adjust levothyroxine. Time spent examining the patient [id number], reviewing the data lab and radiology, placing orders, discussing with the patient, explaining risks, benefits, alternatives, discussing with the staff member including nursing discussing with the hospitalist more than 35 minutes. SHARON Voice ID: [id number] Report ID: [id number] ANN
[2022-05-23] MEDS ORDERED: ALPRAZOLAM 0.25 MG TABLET PO PRN (13:51)
[2022-05-23] MEDS: BENZONATATE 100 MG CAP PO PRN (21:21)
--- NOTE | 2022-05-23 22:47 | P.PN ---
Subjective Date of Service: 05/23/22 Chief Complaint: Anasarca; acute on CKD No acute events overnight. He reports that he feels well this morning. He states that his pain is well-controlled with his current regimen. Review of Systems 10-point ROS is otherwise unremarkable Musculoskeletal: Leg Pain (bilateral) Integumentary: Rash (BLE) Physical Examination - Vital Signs Temperature: 97.2 F Blood Pressure: 157/68 Pulse: 56 Respirations: 18 Pulse Ox (%): 99 Assessment And Plan - Plan - Physical Exam General: Alert, In no apparent distress, Oriented x3 HEENT: Atraumatic, PERRLA, Mucous membr. moist/pink, EOMI, Sclerae nonicteric Neck: Supple, JVD not distended Respiratory: Clear to auscultation bilaterally, Normal air movement Cardiovascular: Regular rate/rhythm, Normal S1 S2, No gallops, No rubs, No murmurs, Edema (1+ bilateral) Gastrointestinal: Normal bowel sounds, Soft and benign, Non-distended, No tenderness, No rebound, No guarding Musculoskeletal: No clubbing Integumentary: Multiple skin wounds involving bilateral lower extremities Neurological: Normal speech, Cranial nerves 3-12 intact, Normal affect # Methicillin-Resistant Staphylococcus Aureus Left Thigh and Right Lower Leg Skin Infection # Pseudomonas Aureginosa, Enterobacter Cloacae, and Proteus Mirabilis Sacral Pressure snf Left Foot Wound - Does not currently meet sepsis criteria - Consulted Infectious Diseases and spoke with Dr. Tao - recommendations appreciated - Continue vancomycin and levofloxacin - Wound care consulted # Acute Kidney Injury on Chronic Kidney Disease Stage III with concern for Cardiorenal Syndrome # Microscopic Hematuria - Nephrology consulted and Dr. Kincaid following - recommendations appreciated - Furosemide drip changes to bumetanide - Creatinine = 3.12 -> 3.29 -> 3.51 (was 2.12 on 11/21/2021) - Urinalysis = 3+ blood, 3+ leukocyte esterase, 21-50 RBCs, >50 WBCs - Renal Ultrasound = "The right kidney measures 9 centimeters with a normal echotexture. The left kidney measures 9 centimeters with a normal echotexture. " - Monitor creatinine and urine output - Renally dose medications # Acute Decompensated Congestive Heart Failure with Preserved Ejection Fraction - Cardiology consulted - recommendations appreciated - TTE = moderate diastolic dysfunction - Continue bumetanide per Nephrology for now # Hyponatremia Likely multifactorial due to hypervolemia as well as metolazone use - Appreciate Nephrology recommendations # Chronic Atrial Fibrillation # Hypertension # Hyperlipidemia # Hypothyroidism - Continue home meds Devon Marc M.D.
[2022-05-24 03:37] LABS: Absolute Lymphocytes (CBC) 0.6 K/uL (0.7-4.9); Hematocrit 36.7 % (39.6-49.0); Lymphocytes % 10.7 % (15.3-44.8); MCV 88.9 fL (80-100); MPV 6.9 fL (7.6-11.3); RBC Red Blood Cell Count 4.13 M/uL (4.33-5.43)
[2022-05-24] MEDS: LEVOTHYROXINE SOD 0.1 MG TAB PO SCH (06:08)
[2022-05-24] MEDS: LEVOTHYROXINE SOD 0.075 MG TAB PO SCH (06:08)
[2022-05-24] MEDS: BUMETANIDE 1 MG TABLET PO SCH (08:43)
[2022-05-24] MEDS: HEPARIN 5000 UNIT/ML 1 ML VIAL SQ SCH (08:49)
[2022-05-24] MEDS: MEDIHONEY 44 ML TOPICAL TUBE TOP SCH (08:50)
[2022-05-24] MEDS: INSULIN -REGULAR HUMAN 50 UNIT/0.5 ML ML SQ SCH ×2 (08:50→12:09)
[2022-05-24] MEDS: Levofloxacin 250mg IV 250 MG/50 ML BAG IV SCH (12:09)
--- NOTE | 2022-05-24 12:53 | PN ---
Date of Progress Note: 05/24/2022 Subjective: The patient was admitted to the hospital with acute kidney injury secondary to cardiorenal, over volume. The patient was initiated on Lasix drip and transitioned to bolus. Currently on Bumex p.o. Kidney function originally got worse, currently euvolemic. The patient had severe elevation in the BUN, but does not have any uremic symptoms, mostly secondary to the cardiac poor perfusion. Physical Examination: Vital Signs: When I saw the patient; blood pressure 135/61, pulse of 67. Afebrile. The patient had good urine output of 1500, positive of 300. Chest: Decreased entry bilateral base. Heart: S1, S2. Systolic murmur. Abdomen: Soft, nontender. Extremity: Bilateral leg wraps. Laboratory Data: WBC 5.9, H and H 12/36.7. Sodium 128, potassium 3.6, bicarb 36, BUN 132. Creatinine 3.5. Calcium 8.9, phosphorus 5.1, magnesium 3.4. Current Medications: The patient on include; 1. Levaquin 250 daily. 2. Vancomycin. 3. Tylenol. 4. Bumex 2 mg daily. Assessment And Plan: 1. Acute kidney injury secondary to cardiorenal, looked to me normal volume currently or acceptable volume status. I am going to decrease the Bumex to 1 mg. I will follow up chemistry today. The patient interested in rehab/LTAC. We will discuss with hospitalist. 2. Hypertension, controlled, optimal. 3. Disproportion in BUN and creatinine secondary to poor perfusion secondary to the cardiorenal. No uremic symptoms. Kidney function above 15. I do not see the need to initiate renal replacement therapy for that. We will follow up. 4. Hyponatremia, dilutional. Continue Bumex. 5. Hypokalemia. We will continue to monitor. 6. Anasarca secondary to cardiorenal, hypothyroidism. Decrease Bumex. Continue levothyroxine. 7. Hypothyroidism as above. Time spent examining the patient [id number], reviewing the data lab and radiology, placing orders, discussing with the patient, explaining risks, benefits, alternatives, discussing with the staff member including nursing discussing with the hospitalist more than 35 minutes. SHARON Voice ID: [id number] Report ID: [id number] MTDD
--- NOTE | 2022-05-24 14:08 | P.DS ---
Admission Date: 05/17/22 Discharge Date: 05/24/22 Disposition: TRANSFER TO CUSTODIAL Discharge Condition: FAIR Reason for Admission: Anasarca; acute on CKD Consultations: 1. Cardiology 2. Nephrology 3. Infectious Diseases Hospital Course: DIAGNOSES: # Methicillin-Resistant Staphylococcus Aureus Left Thigh and Right Lower Leg Skin Infection # Pseudomonas Aureginosa, Enterobacter Cloacae, and Proteus Mirabilis Sacral Pressure snf Left Foot Wound # Acute Kidney Injury on Chronic Kidney Disease Stage III with concern for Cardiorenal Syndrome # Microscopic Hematuria # Acute on Chronic Decompensated Congestive Heart Failure with Preserved Ejection Fraction # Hyponatremia # Chronic Atrial Fibrillation # Hypertension # Hyperlipidemia # Hypothyroidism HOSPITAL COURSE: Mr. Rubén Soto is an 86 year old male with a past medical history significant for chronic congestive heart failure with preserved ejection fraction, chronic atrial fibrillation, chronic kidney disease stage III, hypertension, hyperlipidemia, and hypothyroidism who was admitted to the [facility] on 05/17/2022 for acute decompensated congestive heart failure. He was admitted to the Medicine service for further evaluation. Cardiology and Nephrology were consulted and he was treated with IV diuretics, with improvement in his symptoms. Over the course of his hospitalization, his symptoms improved significantly. He has multiple wounds on his lower extremities which returned po sitive for methicillin-resistant Staphylococcus Aureus, Pseudomonas Aeruginosa, Enterobacter Cloacae, and Proteus Mirabilis. Infectious Diseases was consulted and he was evaluated by Dr. Tao. He was initially treated with intravenous antibiotics, but Dr. Tao has cleared him for discharge to the nursing facility with topical wound care. He states that IV antibiotics are no longer needed in his case. With the assistance of case management, he was excepted to a retirement facility for further evaluation. On 05/24/2022, he was seen on morning rounds and deemed medically stable for discharge. He was given the opportunity to ask questions and reported no further questions. Furthermore, all questions were answered to the best of my ability. Today, I personally spent 40 minutes on his case, of which greater than 50% of the time was spent in patient education, counseling, and coordination of care as described above. - Physical Exam General: Alert, In no apparent distress, Oriented x3 HEENT: Atraumatic, PERRLA, Mucous membr. moist/pink, EOMI, Sclerae nonicteric Neck: Supple, JVD not distended Respiratory: Clear to auscultation bilaterally, Normal air movement Cardiovascular: Regular rate/rhythm, Normal S1 S2, No gallops, No rubs, No murmurs, Edema (1+ bilateral) Gastrointestinal: Normal bowel sounds, Soft and benign, Non-distended, No tenderness, No rebound, No guarding Musculoskeletal: No clubbing Integumentary: Multiple skin wounds involving bilateral lower extremities Neurological: Normal speech, Cranial nerves 3-12 intact, Normal affect Vital Signs/Physical Exam: Temp Pulse Resp BP Pulse Ox 97.1 F 62 14 142/65 H 96 05/24/22 12:00 05/24/22 12:00 05/24/22 12:00 05/24/22 12:00 05/24/22 12:00 Laboratory Data at Discharge: WBC 5.90 K/uL (4.3-10.9) 05/24/22 03:01 Hgb 12.0 g/dL (13.6-17.9) L 05/24/22 03:01 Hct 36.7 % (39.6-49.0) L D 05/24/22 03:01 Plt Count 171 K/uL (152-406) 05/24/22 03:01 PT 12.7 SECONDS (9.5-12.5) H 05/17/22 14:10 INR 1.15 05/17/22 14:10 APTT 41.2 SECONDS (24.3-36.9) H 05/17/22 14:10 Sodium 128 mmol/L (136-145) L 05/23/22 03:16 Potassium 3.6 mmol/L (3.5-5.1) 05/23/22 03:16 BUN 132 mg/dL (7-18) H 05/23/22 03:16 Creatinine 3.51 mg/dL (0.55-1.3) H 05/23/22 03:16 Glucose 269 mg/dL (74-106) H 05/23/22 03:16 Uric Acid 12.9 mg/dL (3.5-7.2) H D 05/22/22 03:03 Phosphorus 5.1 mg/dL (2.5-4.9) H 05/23/22 03:16 Magnesium 3.4 mg/dL (1.8-2.4) H 05/23/22 03:16 Total Bilirubin 0.5 mg/dL (0.2-1.0) 05/21/22 10:07 AST 13 U/L (15-37) L 05/21/22 10:07 ALT 15 U/L (12-78) 05/21/22 10:07 Alkaline Phosphatase 113 U/L (45-117) 05/21/22 10:07 Home Medications: Allopurinol 100 mg PO DAILY 09/01/20 Pantoprazole [Protonix Tab*] 40 mg PO DAILY 09/01/20 Tamsulosin [Flomax*] 1 tab PO BID 09/01/20 Amiodarone HCl [Cordarone*] 200 mg PO DAILY #30 tab 09/06/20 Atorvastatin Calcium 40 mg PO BEDTIME 09/06/21 Insulin Glargine Human [Lantus*] 60 units SQ BEDTIME 09/06/21 hydrOXYzine HCL [Atarax*] 25 mg PO TID 09/06/21 Insulin Aspart [Novolog Flexpen] See Rx Instructions .ROUTE .COMPLEX 09/18/21 Spironolactone [Aldactone*] 25 mg PO BID #60 tab 11/03/21 Bumetanide [Bumex*] 2 mg PO BID #60 tab 11/21/21 Levothyroxine Sodium [Levothyroxine] 150 mcg PO DAILY #30 11/21/21 Metolazone [Zaroxolyn] 5 mg pe PO BID #60 11/21/21 Diet: Low sodium Followup: Cesar Mckenzie MD [Primary Care Provider] - (Call to schedule appointment) Time spent managing pt's care (in minutes): 40
[2022-05-24 14:52] LABS: Potassium 3.6 mmol/L (3.5-5.1)
[2022-05-24 16:21] VITALS: BP 131/60; TEMP 97
[2022-05-24 20:05] LABS: Albumin, (SPE) 4.2 g/dL (3.8-4.8); Alpha-1-Globulins 0.4 g/dL (0.2-0.3); INTERPRETATION REPORT
[2022-05-25] MEDS ORDERED: BUMETANIDE 1 MG TABLET PO SCH (09:00)
[2022-05-25] MEDS ORDERED: VANCOMYCIN 1 GM in NA CHLORIDE 0.9% 250 ML IVPB SCH (17:00)
[2022-05-25 17:11] LABS: KAPPA LIGHT CHAIN, FREE SERUM 154.8 mg/L (3.3-19.4)
== END 2022-05-24 16:15 | DRG 291 ==
LOC: ER 10:52 → ERHOLD 10:59 → 4TH 17:32
PROVIDERS: ADMIT Hospitalist; ATTEND Hospitalist
DX: I13.0 Hypertensive heart and chronic kidney disease with heart failure and stage 1 through stage 4 chronic kidney disease, or unspecified chronic kidney disease (principal); I50.33 Acute on chronic diastolic (congestive) heart failure; N17.9 Acute kidney failure, unspecified; E87.1 Hypo-osmolality and hyponatremia; I48.20 Chronic atrial fibrillation, unspecified; L97.122 Non-pressure chronic ulcer of left thigh with fat layer exposed; L97.919 Non-pressure chronic ulcer of unspecified part of right lower leg with unspecified severity; E11.22 Type 2 diabetes mellitus with diabetic chronic kidney disease; N18.30 Chronic kidney disease, stage 3 unspecified; R31.29 Other microscopic hematuria; E78.5 Hyperlipidemia, unspecified; E03.9 Hypothyroidism, unspecified; E87.6 Hypokalemia; E11.40 Type 2 diabetes mellitus with diabetic neuropathy, unspecified; E11.21 Type 2 diabetes mellitus with diabetic nephropathy; R01.1 Cardiac murmur, unspecified; L89.152 Pressure ulcer of sacral region, stage 2; L08.89 Other specified local infections of the skin and subcutaneous tissue; B95.62 Methicillin resistant Staphylococcus aureus infection as the cause of diseases classified elsewhere; B96.5 Pseudomonas (aeruginosa) (mallei) (pseudomallei) as the cause of diseases classified elsewhere; Z20.822 Contact with and (suspected) exposure to COVID-19
CPT/HCPCS: 36415; 71045; 76700; 76705; 80048; 80053; 80069; 81001; 82607; 82947; 83036; 83520; 83735; 83880; 84132; 84156; 84165; 84300; 84439; 84443; 84550; 85025; 85610; 85730; 87070; 87077; 87086; 87088; 87186; 87205; 87811; 93306; 97110; 97161; 99251; J1644; J1815; J1940; J2405; J3370; J7040; J7042; P9047